=== PATIENT | male | born 1990 | race Caucasian/White ===

== ENCOUNTER 2020-05-31 17:17 | Emergency (ER) | payer OTHER, SELFPAY ==
[2020-05-31 17:33] VITALS: BP 138/73; PULSE 76; RESP 17; TEMP 36; O2SAT 99; BMI 28.1
[2020-05-31 17:57] VITALS: BP 131/72; PULSE 74; RESP 16; TEMP 36.9; O2SAT 99
--- NOTE | 2020-05-31 19:03 | ED_ITS ---
HPI - General Adult General Chief complaint: General Medical Stated complaint: covid symptoms Time Seen by Provider: 05/31/20 19:02 History of Present Illness HPI narrative: Patient complains of vomiting nausea and diarrhea which began this morning he vomited once but stays nauseous but is able to tolerate small sips of fluids, he has had 2 episodes of diarrhea but has had none for the last several hours, he has no abdominal pain no cough no runny nose no shortness of breath no fever Related Data Previous Rx's Medication Instructions Recorded loperamide [Imodium A-D] 2 mg PO Q6H PRN #10 cap 05/31/20 loperamide [Imodium A-D] 2 mg PO Q6H PRN #10 cap 05/31/20 ondansetron HCl [Zofran] 4 mg PO Q6H PRN #10 tab 05/31/20 ondansetron HCl [Zofran] 4 mg PO Q6H PRN #10 tab 05/31/20 ondansetron HCl [Zofran] 4 mg PO Q6H PRN #10 tab 05/31/20 Allergies Allergy/AdvReac Type Severity Reaction Status Date / Time No Known Allergies Allergy Unverified 04/05/20 16:06 Review of Systems Review of Systems: Review of systems is positive for nausea vomiting and diarrhea No fever no chills no abdominal pain no bloody stool no bloody vomit no trouble urinating no cough no runny nose no shortness of breath no difficulty swallowing no sore throat no rash no weakness no dizziness no feeling faint [facility] Past Medical History Attestation statement: The following information was validated with the patient. [facility] Narrative: No relevant medical history, no alcohol no drugs Source: nursing notes reviewed Social History Social History Alcohol intake: never Smoked in Last 30 Days: No Advance Directives: No Advance Directives Information Provided: Yes Physical Exam Vital Signs: Vital Signs: Last Vital Signs Temp 98.4 F 05/31/20 17:57 Pulse 74 05/31/20 17:57 Resp 16 05/31/20 17:57 BP 131/72 05/31/20 17:57 Pulse Ox 99 05/31/20 17:57 Body Mass Index 28.1 General appearance no acute distress comfortable appearing anicteric no pallor, A&O x3 The pharynx is clear, mucous membranes are moist The neck is supple Chest is clear to auscultation bilaterally with no adventitious sounds The heart no murmurs The abdomen soft nontender The extremities no rashes no edema Neuro no focal deficit Course Course Course Narrative: Patient is able to tolerate p.o. fluids, he is given a Zofran for nausea, he ambulates easily and remains comfortable throughout visit and is discharged Discharge Plan Discharge Clinical Impression: Gastroenteritis Patient Disposition: Home, Self-Care Additional Instructions: Drink plenty of fluids Zofran if needed for nausea Imodium if needed for diarrhea Vomiting and diarrhea can be from food poisoning or a virus and COVID can also cause these symptoms We will have COVID test results called in to you in 2-3 days Return any time any worse condition or any concerns Prescriptions: New ondansetron HCl [Zofran] 4 mg tablet 4 mg PO Q6H PRN (Reason: nausea and vomiting) Qty: 10 RF: 0 loperamide [Imodium A-D] 2 mg capsule 2 mg PO Q6H PRN (Reason: loose stool) Qty: 10 RF: 0 ondansetron HCl [Zofran] 4 mg tablet 4 mg PO Q6H PRN (Reason: nausea and vomiting) Qty: 10 RF: 0 ondansetron HCl [Zofran] 4 mg tablet 4 mg PO Q6H PRN (Reason: nausea and vomiting) Qty: 10 RF: 0 loperamide [Imodium A-D] 2 mg capsule 2 mg PO Q6H PRN (Reason: loose stool) Qty: 10 RF: 0 Stand Alone Forms: Work/School Release Interventions: ED Discharge Assessment Last Done: 05/31/20 19:23 Discharge Date/Time: 05/31/20 19:26
== END 2020-05-31 19:26 | disposition home or self-care (01) ==
PROVIDERS: Emergency Provider Emergency Medicine Emergency Medical Services
DX: K52.9 Noninfective gastroenteritis and colitis, unspecified (principal); R11.2 Nausea with vomiting, unspecified; Z20.828 Contact with and (suspected) exposure to other viral communicable diseases; Z79.899 Other long term (current) drug therapy
CPT/HCPCS: 99283; 99284; U0003

== ENCOUNTER 2020-10-10 21:28 | Emergency (ER) | payer OTHER, SELFPAY ==
--- NOTE | ~2020-10-10 | XR_ITS ---
EXAMINATION: XR KNEE, LEFT CLINICAL INFORMATION: Pain after injury COMPARISON: 02/07/2017 TECHNIQUE: Four views of the left knee. FINDINGS: No fracture or dislocation. No suprapatellar joint effusion. Joint spaces are well-maintained. No appreciable degenerative changes. No focal soft tissue swelling of the anterior knee. XR/XR knee LT 3V IMPRESSION: Normal left knee.
[2020-10-10 21:29] VITALS: BP 142/79; PULSE 98; RESP 18; TEMP 36.7; O2SAT 99; BMI 26.6
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
== END 2020-10-10 23:18 | disposition home or self-care (01) ==
PROVIDERS: Emergency Provider Emergency Medicine
DX: S89.92XA Unspecified injury of left lower leg, initial encounter (principal); M23.92 Unspecified internal derangement of left knee; W01.0XXA Fall on same level from slipping, tripping and stumbling without subsequent striking against object, initial encounter; Y93.9 Activity, unspecified; Y92.9 Unspecified place or not applicable; Y99.0 Civilian activity done for income or pay; Z79.899 Other long term (current) drug therapy
CPT/HCPCS: 73562; 99283

== ENCOUNTER → 2020-10-12 08:17 | Outpatient (BNVA) | payer OTHER, SELFPAY | PROVIDERS: Visit Provider Internal Medicine | DX: M23.8X2 Other internal derangements of left knee (principal); Z91.81 History of falling | CPT/HCPCS: 99202 ==

== ENCOUNTER → 2020-10-15 11:29 | Outpatient (BNVA) | payer OTHER, SELFPAY | PROVIDERS: Visit Provider Internal Medicine | DX: M23.8X2 Other internal derangements of left knee (principal); M54.30 Sciatica, unspecified side; Z91.81 History of falling | CPT/HCPCS: 99213 ==

== ENCOUNTER → 2020-10-22 09:50 | Outpatient (BNVA) | payer OTHER, SELFPAY | PROVIDERS: Visit Provider Physician Assistant | DX: S83.92XA Sprain of unspecified site of left knee, initial encounter (principal) | CPT/HCPCS: 99202 ==

== ENCOUNTER 2020-10-24 10:25 | Outpatient (REF) | payer OTHER, SELFPAY ==
--- NOTE | ~2020-10-24 | MR_ITS ---
EXAMINATION: MR KNEE WITHOUT CONTRAST, LEFT CLINICAL INFORMATION: Fall pain locking small effusion. COMPARISON: X-ray of the left knee September 2020 TECHNIQUE: MRI of the knee without contrast was performed using routine sequences on a high-field scanner. FINDINGS: MENISCI: Medial Meniscus: Intact Lateral Meniscus: Intact LIGAMENTS: Cruciate: Intact Collateral: Intact EXTENSOR MECHANISM: Intact ARTICULAR CARTILAGE/BONE: Patellofemoral Compartment: There is some minimal superficial signal abnormality compatible with fissuring along the median ridge of the patella. The trochlear cartilage is normal. Overall minimal patellofemoral arthrosis. Medial Compartment: Normal Lateral Compartment: Normal JOINT FLUID AND BURSAE: Trace joint effusion. MR/MR knee LT wo con IMPRESSION: Minimal patellofemoral arthrosis. Trace effusion.
== END 2020-10-24 10:26 | disposition home or self-care (01) ==
LOC: HO.MRI 10:25
PROVIDERS: Visit Provider Internal Medicine
DX: M25.562 Pain in left knee (principal)
CPT/HCPCS: 73721

== ENCOUNTER → 2020-10-25 07:50 | Outpatient (BNVA) | payer OTHER, SELFPAY | PROVIDERS: Visit Provider Internal Medicine | DX: M23.8X2 Other internal derangements of left knee (principal); M54.9 Dorsalgia, unspecified; K62.89 Other specified diseases of anus and rectum | CPT/HCPCS: 99214 ==

== ENCOUNTER → 2020-10-30 10:39 | Outpatient (BNVA) | payer OTHER, SELFPAY | PROVIDERS: Visit Provider Physician Assistant | DX: S89.92XD Unspecified injury of left lower leg, subsequent encounter (principal) | CPT/HCPCS: 99212 ==

== ENCOUNTER → 2020-11-01 09:05 | Outpatient (BNVA) | payer OTHER, SELFPAY | PROVIDERS: Visit Provider Physician Assistant Medical | DX: S89.92XD Unspecified injury of left lower leg, subsequent encounter (principal); X58.XXXD Exposure to other specified factors, subsequent encounter | CPT/HCPCS: 99213 ==

== ENCOUNTER 2020-11-05 07:17 | Outpatient (REF) | payer OTHER, SELFPAY ==
--- NOTE | ~2020-11-05 | MR_ITS ---
EXAMINATION: MR LUMBAR SPINE WITHOUT CONTRAST CLINICAL INFORMATION: Back pain with right leg sciatic pain. Fall in September 2020. COMPARISON: None TECHNIQUE: MRI of the lumbar spine was obtained using routine sequences without contrast. FINDINGS: VERTEBRAL BODIES AND PARASPINAL STRUCTURES: Normal vertebral body alignment. The lumbar lordosis is maintained. No acute fracture or subluxation. No loss of vertebral body height. Loss of intervertebral disc height with disc desiccation at L4-L5 and L5-S1. Mild Modic type I degenerative endplate changes at L5-S1. No additional abnormal marrow signal. The right kidney is not seen within the right renal fossa. Otherwise, the visualized paraspinal soft tissues are unremarkable. CONUS MEDULLARIS AND CAUDA EQUINA: Normal, terminating at the level of the inferior endplate of L1. SPINAL LEVELS: T12-L1: No significant disc bulge. No central canal or neural foraminal stenosis. L1-L2: No significant disc bulge. Mild bilateral facet arthropathy with a synovial cyst inferior to the left facet joint measuring up to 0.9 cm. No significant central canal or neural foraminal stenosis. L2-L3: No significant disc bulge. Mild bilateral facet arthropathy. No central canal or neural foraminal stenosis. L3-L4: No significant disc bulge. Bilateral facet arthropathy without central canal or neural foraminal stenosis. L4-L5: Shallow broad-based disc bulge with bilateral facet arthropathy causing minimal bilateral neural foraminal stenosis. L5-S1: Shallow broad-based disc bulge with a right subarticular disc protrusion which contacts the exiting right L5 nerve root. Bilateral facet arthropathy with [id number] right and mild left neural foraminal stenosis. MR/MR lumbar spine wo con IMPRESSION: 1. Degenerative disc disease at L5-S1 with a shallow broad-based disc bulge and right subarticular disc protrusion which contacts the exiting right L5 nerve root. Additionally there is bilateral facet arthropathy which causes [id number] right and mild left neural foraminal stenosis. 2. Mild degenerative disc disease at L4-L5 with a shallow broad-based disc bulge and bilateral facet arthropathy causing minimal bilateral neural foraminal stenosis. 3. Bilateral facet arthropathy at L1-L2 with a synovial cyst measuring 0.9 cm inferior to the left L1-L2 facet.
== END 2020-11-05 07:18 | disposition home or self-care (01) ==
LOC: HO.MRI 07:17
PROVIDERS: Visit Provider Internal Medicine
DX: M54.9 Dorsalgia, unspecified (principal); M79.661 Pain in right lower leg; M79.18 Myalgia, other site
CPT/HCPCS: 72148

== ENCOUNTER → 2020-11-12 08:00 | Outpatient (BNVA) | payer OTHER, SELFPAY | PROVIDERS: Visit Provider Internal Medicine | DX: M51.27 Other intervertebral disc displacement, lumbosacral region (principal); M51.36 Other intervertebral disc degeneration, lumbar region; M23.92 Unspecified internal derangement of left knee | CPT/HCPCS: 99214 ==

== ENCOUNTER → 2020-11-20 10:53 | Outpatient (BNVA) | payer OTHER, SELFPAY | PROVIDERS: Visit Provider Physician Assistant | DX: S89.92XD Unspecified injury of left lower leg, subsequent encounter (principal) | CPT/HCPCS: 99212 ==

== ENCOUNTER 2020-12-11 12:00 | Outpatient (RCR) | payer OTHER, SELFPAY ==
--- NOTE | 2020-11-19 11:09 | MHC.PT.EP ---
[facility] [place] Office [place] Office [place] Office [address] [place] [address] [phone] F: [phone] F: [phone] F: [phone] F: [phone] Physical Therapy Plan of Care Date of Evaluation: Date of Surgery: N/A Diagnosis: soft tissue injury of left knee Assessment: pt presents to physical therapy with pain, decreased range of motion, decreased strength, impaired functional mobility, and gait deviations. pt is a good candidate for skilled PT due to age, potential remediation of impairments, typical disease/condition progression and prognosis, comorbidities, and m notivation. pt would benefit from tailored strengthening and stretching exercise program, functional training, gait training, postural re-training, neuromuscular re-education, modalities as needed for pain, equipment safety demonstration. Frequency and Duration: The patient will be seen 2x/wk for 4 wks Short Term Goals: pt will be I w/ HEP to promote self-management of condition. pt will perform full depth squat w/ proper mechanics to reduce knee stress and promote ease in picking up objects from the ground. Project Estimator Goals: pt will tolerate >10 min running on even ground w/ <2/10 L knee pain to promote return to work. pt will report a statistically significant improvement in self-reported outcome measure, LEFI, to promote return to PLOF. Treatment Plan: Modalities to reduce pain, spasms and effusion. Manual therapy to restore motion and function. Therapeutic exercise to improve strength and flexibility. Neuromuscular re-education for posture and balance. Therapeutic activities to return to functional activities of daily living. Electronically signed by: Dalia Montiel PT, DPT Please sign and return to therapist. Thank you for your referral.
--- NOTE | 2020-12-20 10:03 | MHC.PT.DC ---
[facility] [place] Office [place] Office [place] Office [address] [place] [address] [phone] F: [phone] F: [phone] F: [phone] F: [phone] Physical Therapy Discharge Report Diagnosis: soft tissue injury of left knee Date of Surgery: N/A Date of Evaluation: 11/19/20 Date of Discharge: Treatments to Date: 5 Cancellations to Date: 3 No Shows to Date: 3 Discharge Status: Improved Function Independent with HEP Patient Elected to Stop Discharge Summary: Pt had been progressing well with PT and was nearing discharge. He did not attend his last 2 scheduled visits and exact status is unknown. Electronically signed by: Sammi Banda PT, DPT Please sign and return to therapist. Thank you for your referral.
== END 2020-12-20 10:04 | disposition other institution (70) ==
LOC: HO.PT 12:00
PROVIDERS: PCP Family Medicine; Visit Provider Physician Assistant
DX: S89.92XA Unspecified injury of left lower leg, initial encounter (principal)
CPT/HCPCS: 97110; 97161; 97530

== ENCOUNTER 2021-09-04 12:52 | Emergency (ER) | payer OTHER, SELFPAY ==
--- NOTE | ~2021-09-04 | US_ITS ---
EXAMINATION: US SCROTUM CLINICAL INFORMATION: Pain lump. COMPARISON: None TECHNIQUE: A sonogram of the scrotum was performed assessing duque-scale appearance and color Doppler flow. Spectral Doppler analysis of the arterial and venous flow were performed in the testes bilaterally. FINDINGS: RIGHT: Right testicle measures 5.6 x 2.3 x 4.1 cm, volume 27 mL. No focal testicular parenchymal lesions are visualized. Spectral Doppler analysis of the arterial and venous flow is normal in the right testis. Right epididymal head is normal in size. There is a right testicular hydrocele. Right epididymal Doppler flow is normal. LEFT: Left testicle measures 5.3 x 2.6 x 3.2 cm, volume 23 mL. No focal testicular parenchymal lesions are visualized. Spectral Doppler analysis of the arterial and venous flow is normal in the left testis. Left epididymal head is normal in size. Mild hydrocele. Left epididymal Doppler flow is normal. US/US scrotum doppler IMPRESSION: No ultrasound evidence of intratesticular mass. Normal bilateral testicular flow. No evidence of torsion. Mild bilateral hydrocele.
--- NOTE | ~2021-09-04 | US_ITS ---
EXAMINATION: US SCROTUM CLINICAL INFORMATION: Pain lump. COMPARISON: None TECHNIQUE: A sonogram of the scrotum was performed assessing duque-scale appearance and color Doppler flow. Spectral Doppler analysis of the arterial and venous flow were performed in the testes bilaterally. FINDINGS: RIGHT: Right testicle measures 5.6 x 2.3 x 4.1 cm, volume 27 mL. No focal testicular parenchymal lesions are visualized. Spectral Doppler analysis of the arterial and venous flow is normal in the right testis. Right epididymal head is normal in size. There is a right testicular hydrocele. Right epididymal Doppler flow is normal. LEFT: Left testicle measures 5.3 x 2.6 x 3.2 cm, volume 23 mL. No focal testicular parenchymal lesions are visualized. Spectral Doppler analysis of the arterial and venous flow is normal in the left testis. Left epididymal head is normal in size. Mild hydrocele. Left epididymal Doppler flow is normal. US/US scrotum IMPRESSION: No ultrasound evidence of intratesticular mass. Normal bilateral testicular flow. No evidence of torsion. Mild bilateral hydrocele.
[2021-09-04 13:20] VITALS: BP 129/57; PULSE 83; RESP 19; TEMP 36.6; O2SAT 97; BMI 27.3
--- NOTE | 2021-09-04 15:28 | ED.MALEGU ---
HPI - Male Genitourinary General Chief complaint: Urogenital-Male Stated complaint: scrotum pain Time Seen by Provider: 09/04/21 13:24 Source: patient Mode of arrival: ambulatory Limitations: no limitations History of Present Illness HPI Narrative: 31-year-old male presents for right scrotal pain. Pain started 2 days ago. No injury. Pain was worse last night, and patient felt a small bump behind his right testicle. It is painful to touch, no pain at rest. No nausea, vomiting, abdominal pain. No fevers. Patient has had no penile discharge, no penile rashes or ulcers, no dysuria. Patient has no concerns for STDs. Patient's is and he has not had intercourse with her for some time. Patient adamantly states he has no concerns for STDs. MD Complaint: testicle pain Onset (ago): day(s) (2) Duration: constant Location: right testicle Severity: mild Severity scale (1-10): 2 Quality: aching Relieving factors: none Exacerbating factors: none Associated symptoms: Reports denies other symptoms Related Data Sexually active: No Allergies Allergy/AdvReac Type Severity Reaction Status Date / Time No Known Allergies Allergy Verified 10/22/20 10:02 Review of Systems Constitutional: Constitutional: Denies body ache(s), Denies chills, Denies fatigue, Denies fever(s), Denies headache(s), Denies malaise and Denies weakness Eyes: Eyes: Denies diplopia ENT: Denies vertigo, Denies dizziness, Denies otalgia, Denies headache(s), Denies mouth pain, Denies post nasal drip, Denies sinus pain, Denies sinus pressure, Denies sore throat and Denies throat swelling Cardiovascular: Cardiovascular: Denies chest pain, Denies syncope, Denies leg edema, Denies lightheadedness, Denies Loss of Consciousness, Denies palpitations and Denies dyspnea Respiratory: Respiratory: Denies chest congestion, Denies cough and Denies dyspnea Gastrointestinal: Gastrointestinal: Denies abdominal pain, Denies hematochezia, Denies constipation, Denies diarrhea and Denies vomiting Genitourinary: Genitourinary: Denies genital lesions, Denies dysuria, Denies flank pain, Denies penile discharge, Denies scrotal swelling, Reports testicular mass, Reports testicular pain and Denies urinary urgency Musculoskeletal: Musculoskeletal: Reports no additional musculoskeletal complaints Neurologic: Denies confusion, Denies vertigo, Denies dizziness, Denies syncope, Denies headache(s) and Denies weakness Psychiatric: Psychiatric: Denies anxiety, Denies confusion and Denies depression Endocrine: Endocrine: Denies fatigue and Denies palpitations Allergic/Immunologic: Allergic/Immunologic: Denies throat swelling PMFSH Past Medical History Surgical History H/O kidney removal H/O kidney removal Family History Family History Mother No problems noted. Father No problems noted. 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 Physical Exam Vital Signs: Vital Signs: Last Vital Signs Temp 98 F 09/04/21 13:20 Pulse 83 09/04/21 13:20 Resp 19 09/04/21 13:20 BP 129/57 L 09/04/21 13:20 Pulse Ox 97 09/04/21 13:20 BMI result Body Mass Index 27.3 Const: General: No confusion Nutritional Appearance: well nourished Orientation/consciousness: No confusion Limitations: no limitations Eyes: Conjunctivae: conjunctivae normal Pupils: Equal, round and reactive pupils present EOM: EOMs intact bilaterally Neck: Neck: Yes full ROM, Yes no lymphadenopathy and Yes supple Resp: Effort & Inspection: normal respiratory effort and able to speak in complete sentences Auscultation: clear to auscultation bilaterally, no crackles, no rales, no rhonchi and no wheezes Cardio: Rate: regular rate Rhythm: regular rhythm Heart sounds: S1 normal heart sound present and S2 normal heart sound present GI: Inspection: Yes normal to inspection Palpation (GI): Soft to palpation, nontender, no guarding and not rigid Percussion: Yes normal to percussion Auscultation: normal bowel sounds : General: Yes no CVA tenderness Male General Exam: No Genital lesions present Penis: normal penis, circumcised, no ecchymosis, not erythematous, no masses, no papules, no pustules, no vesicles, no paraphimosis, no phimosis, no swelling, no ulcerations and No Genital lesions present Meatus: meatus normal Scrotum: scrotum normal, not edematous, not erythematous and testes descended bilaterally Testes: testicular lie normal, not enlarged, no epididymal induration, no epidiymal tenderness, no testicular swelling and testicular tenderness on the right Back/Spine/Pelvis: Back: no CVA tenderness Skin: General skin exam: no rashes or lesions noted Neuro: General: No confusion Cranial nerves: Yes Equal, round and reactive pupils present Extrem: General: Yes normal to inspection and Yes full ROM Psych: Appearance: grossly normal Affect: normal affect Attitude: cooperative Thought process: Normal thought process present Course Course Course Narrative: 51-year-old male presents with right testicular pain that is tender to touch, no pain at rest. On exam, patient has benign abdomen, is mildly tender posterior right testicle. Reevaluation(s) Reevaluation #1: Ultrasound shows no epididymitis, orchitis, with normal Doppler flow to both testes. Does show mild bilateral hydrocele. Will get UA, will test for CTNG. Patient adamant about no STD exposure. Cancelled CTNG Patient will follow-up with Urology. Counseled alternating Tylenol and ibuprofen. US/US scrotum IMPRESSION: No ultrasound evidence of intratesticular mass. ? Normal bilateral testicular flow. No evidence of torsion. ? Mild bilateral hydrocele. MDM - Male Genitourinary Lab Data Labs: Lab Results 09/04/21 Range/Units 15:28 Urine Color YELLOW Urine Appearance CLEAR Urine pH 6.0 (5.0-8.0) Ur Specific [place] 1.025 (1.005-1.025) Urine Protein NEG (NEG-TRACE) MG/DL Urine Glucose (UA) NEG (NEG) MG/DL Urine Ketones NEG (NEG) MG/DL Urine Blood NEG (NEG) Urine Nitrite NEG (NEG) Ur Leukocyte Esterase NEG (NEG) Discharge Plan Discharge Clinical Impression: Bilateral hydrocele Patient Disposition: Home, Self-Care Instructions: Hydrocele (ED), Testicle Pain (ED) Additional Instructions: Please call Urology at [phone] for further work up of your hydrocele. I have referred you as well, they should be calling you. Your ultrasound did not show any swelling in your epididymis, your testes, there was no mass, you have normal blood flow to both your testicles, no torsion. Please alternate Tylenol and ibuprofen for pain. Take 1 or the other every 4 hours. For example, at midnight take 1000 mg of Tylenol, then at 4:00 a.m. take 800 mg ibuprofen, at 8:00 a.m. take 1000 mg of Tylenol, at noon take 800 mg of ibuprofen, at 4:00 p.m. take 1000 mg of Tylenol, at 8:00 p.m. take 800 mg of ibuprofen. Do not exceed 3000 mg of Tylenol in 24 hours. This method is proven to be as effective as an opioid for pain control. Please return to the emergency room for any new or concerning symptoms. Referrals: Rory Mccabe MD [Physician] - 2 days
[2021-09-04 15:37] LABS: Appearance Urine CLEAR; Color Urine YELLOW; Glucose Urine UA NEG (NEG); Leukocyte Esterase Urine NEG (NEG); Nitrite Urine NEG (NEG); Specific Gravity - Urine 1.025 (1.005-1.025); Urine Blood NEG (NEG); Urine Ketones NEG (NEG); Urine Protein NEG (NEG-TRACE)
== END 2021-09-04 16:15 | disposition home or self-care (01) ==
PROVIDERS: Physician Assistant; Emergency Provider Emergency Medicine; PCP Nurse Practitioner Family
DX: N43.3 Hydrocele, unspecified (principal); N50.811 Right testicular pain
CPT/HCPCS: 76870; 81003; 93975; 99283; 99284

== ENCOUNTER 2022-01-28 15:30 | Emergency (ER) | payer OTHER, SELFPAY ==
--- NOTE | ~2022-01-28 | US_ITS ---
EXAMINATION: Ultrasound right inguinal region. CLINICAL INFORMATION: Right inguinal hernia. COMPARISON: Scrotal ultrasound 09/04/2021 TECHNIQUE: Targeted grayscale and color Doppler exam of the right inguinal region. FINDINGS: There is no inguinal hernia. No fluid collection or mass. There are 2 adjacent morphologically benign-appearing lymph nodes. These have normal fatty hernandez, normal cortex. Short axis diameter is 1.1 cm and 0.8 cm respectively. US/US pelvic limited IMPRESSION: Normal ultrasound right inguinal region. No hernia or mass.
[2022-01-28 16:58] VITALS: BP 141/79; PULSE 88; RESP 18; TEMP 37.4; O2SAT 99; BMI 28.1
[2022-01-28] MEDS: Acetaminophen 325 MG TABLET 650 MG PO (17:05)
--- NOTE | 2022-01-28 20:43 | ED_ITS ---
HPI - General Adult General Chief complaint: Abdominal Pain Stated complaint: ? Hernia [facility] Time Seen by Provider: 01/28/22 17:03 Source: patient Mode of arrival: ambulatory Limitations: no limitations History of Present Illness HPI narrative: Patient complaining of right lower abdominal pain seen at urgent care center sent him here to rule out a hernia. Patient also complaining of body aches malaise for last few days no cough no shortness of breath no fever no nausea no vomiting no testicular pain Related Data Allergies Allergy/AdvReac Type Severity Reaction Status Date / Time No Known Allergies Allergy Verified 01/28/22 16:58 Review of Systems Review of Systems: Yes all other systems are reviewed and are negative [facility] Past Medical History Medical History No pertinent past medical history Surgical History H/O kidney removal H/O kidney removal Family History Family History Mother No problems noted. Father No problems noted. 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 Oriented X3. No acute distress. Eyes: PERRLA, No Nystagmus ENT: Pharynx normal. Oral Mucosa moist Neck: Normal inspection. Neck supple. CVS: Normal heart rate and rhythm. Pulses normal. Respiratory: No respiratory distress. Equal air entry bilateral, no wheezing/rales/rhonchi Abdomen: Soft and nontender. Bowel sounds are present, no mass palpable, no CVA tenderness right inguinal lymph nodes+ less than 1 cm : Testicle nontender epididymitis normal scrotum normal skin normal no hernia or hydrocele noticed Skin: Skin warm and dry. Normal skin color. Normal skin turgor. Extremities: No lower extremity edema. No calf tenderness Neuro: Oriented X 3. No motor deficit. No sensory deficit.No cerebellar signs , cranial nerves II-XII intact Medical Decision Making MDM Narrative Medical decision making narrative: Patient with right inguinal lymph nodes nonsignificant in size ultrasound negative for hernia. Will discharge patient home with symptomatic treatment Lab Data Lab results reviewed: Yes I reviewed the patient's lab results. Labs: Lab Results 01/28/22 Range/Units 20:45 COVID-19 (LIZET) Negative (Negative) COVID-19 Clin Com See Note Discharge Plan Discharge Clinical Impression: Lymphadenopathy, inguinal Patient Disposition: Home, Self-Care Instructions: Lymphadenopathy (ED) Additional Instructions: Your lymph nodes in right inguinal area are not significant large take ibuprofen for pain as needed There is no hernia in ultrasound COVID test is negative Stand Alone Forms: Work/School Release Interventions: ED Discharge Assessment Last Done: 01/28/22 21:21 Discharge Date/Time: 01/28/22 21:21
[2022-01-28 21:04] LABS: COVID-19 Test Negative (Negative)
== END 2022-01-28 21:21 | disposition home or self-care (01) ==
PROVIDERS: Emergency Provider Internal Medicine; PCP Internal Medicine Endocrinology, Diabetes & Metabolism
DX: R59.0 Localized enlarged lymph nodes (principal); Z20.822 Contact with and (suspected) exposure to COVID-19; Z79.899 Other long term (current) drug therapy
CPT/HCPCS: 76857; 87635; 99284

== ENCOUNTER 2022-01-29 04:41 | Emergency (ER) | payer OTHER, SELFPAY ==
--- NOTE | ~2022-01-29 | XR_ITS ---
EXAMINATION: XR CHEST CLINICAL INFORMATION: Chest pain COMPARISON: 01/23/2016 TECHNIQUE: Frontal view of the chest was obtained. FINDINGS: No focal consolidation, pulmonary edema, or pleural effusion. Stable cardiomediastinal silhouette. XR/XR chest 1V IMPRESSION: Unremarkable examination.
[2022-01-29 05:14] VITALS: BP 121/73; PULSE 86; RESP 18; TEMP 37; O2SAT 97; BMI 28.1
[2022-01-29 05:38] LABS: IDNOW Serial# 16C4AD1C; Influenza A Negative (Negative); Influenza B2 Negative (Negative)
[2022-01-29 05:39] LABS: COVID-19 Test Negative (Negative)
--- NOTE | 2022-01-29 07:09 | ECG_ITS ---
Test Reason : chest pain Blood Pressure : / mmHG Vent. Rate : 063 BPM Atrial Rate : 063 BPM P-R Int : 212 ms QRS Dur : 092 ms QT Int : 380 ms P-R-T Axes : 026 084 062 degrees QTc Int : 388 ms Sinus rhythm with marked sinus arrhythmia with 1st degree A-V block Otherwise normal ECG When compared with ECG of 29-JUN-2018 17:55, PA interval has increased Vent. rate has decreased BY 35 BPM Nonspecific T wave abnormality no longer evident in Lateral leads Referred By: Kayla Voss Electronically Signed By:MARJORIE BEDOYA MD
--- NOTE | 2022-01-29 07:17 | ED.URI ---
HPI - URI/Sore Throat General Chief Complaint: General Medical Stated Complaint: cp, flu like symptoms Time Seen by Provider: 01/29/22 07:09 Source: patient Mode of arrival: ambulatory Limitations: no limitations History of Present Illness MD elicited complaint: other (had body aches chills then overnight chest wall pain all night) Onset (ago): day(s) (1) Consistency: constant Severity: moderate Able to tolerate fluids by mouth: Yes Exacerbating factors: other (movement) Relieving factors: nothing Associated symptoms: chills, myalgias, headache and chest pain Treatments prior to arrival: none Related Data Allergies Allergy/AdvReac Type Severity Reaction Status Date / Time No Known Allergies Allergy Verified 01/28/22 16:58 Review of Systems Review of Systems: Constitutional : No Weight loss, No Fever, pos Chills ENT/Mouth : No sore throat, No Rhinorrhea Eyes: No Eye Pain, No Swelling Cardiovascular : pos Chest Pain, no SOB, no Dyspnea on Exertion, No Orthopnea, No Edema, No Palpitations Respiratory : No Cough, No Sputum Gastrointestinal : pos Nausea, No Vomiting, No Diarrhea, No abdominal Pain, No Hematochezia, No Melena Genitourinary : No Dysuria, No Urinary Frequency Musculoskeletal : No joint pain, No Myalgias, No Joint Swelling Skin : No Skin Lesions, No rash Neuro : No Weakness, No Numbness, No Dizziness, No Headache Psych : No Anxiety/Panic, No Depression Heme/Lymph: No Bruising, No Lymphadenopathy Endocrine : No Polyuria, No Polydipsia All other systems reviewed and are negative [facility] Past Medical History Attestation statement: The following information was validated with the patient. Medical History No pertinent past medical history Surgical History H/O kidney removal H/O kidney removal Family History Family History Mother No problems noted. Father No problems noted. 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 Oriented X3. No acute distress. Eyes: Pupils equal, round and reactive to light. ENT: Pharynx normal. Neck: Normal inspection. Neck supple. CVS: Normal heart rate and rhythm. Pulses normal. ttp along lower costochondral border reprodcues pain Respiratory: No respiratory distress. Breath sounds normal. Abdomen: Soft and nontender. Skin: Skin warm and dry. Normal skin color. Normal skin turgor. Extremities: No lower extremity edema. No calf ttp Neuro: Oriented X 3. No motor deficit. No sensory deficit. Course Course Course Narrative: workup negative stable for DC MDM - URI/Sore Throat MDM Narrative Medical decision making narrative: healthy 31 yo male here with c/o chest pain with recent viral illness at this time it does seem MSK - swabs negative but will obtain CXR for mass/infectino and EKG for ischemia. Troponin for myocarditis though low suspicion - he is PERC negative at this time. Lab Data Labs: Lab Results 01/29/22 01/29/22 01/29/22 Range/Units 05:08 05:08 07:25 Troponin I High Sens < 3.5 (<3.5-35.0) ng/L COVID-19 (LIZET) Negative (Negative) COVID-19 Clin Com See Note Influenza Type A (JOSE) Negative (Negative) Influenza Type B (JOSE) Negative (Negative) Influenza A & B Note See Note ECG Data Attestation: I personally reviewed and interpreted this ECG as follows: ECG interpretation date: 01/29/22 ECG interpretation time: :31 Interpretation: Rate: 63 Rhythm: NSR with 1st degree AVB Bradford: mpr,a; Normal P waves. 1st degree AVB Normal QRS complex. ST T wave : normal no JOSH qTC: normal prior studies: no acute ischemia The study has been interpreted contemporaneously by me. . Discharge Plan Discharge Clinical Impression: Acute costochondritis Patient Disposition: Home, Self-Care Instructions: Costochondritis (ED) Additional Instructions: return to ED for any worsening symptoms or concerns COVID, flu, troponin and CXR negative Referrals: Raza Wylie ONLINE MARKETING COORDINATOR [Primary Care Provider] - 2 days (if not better) Stand Alone Forms: Work/School Release
[2022-01-29 07:50] LABS: Troponin-I High Sensitivity < 3.5 ng/L (<3.5-35.0)
== END 2022-01-29 08:22 | disposition home or self-care (01) ==
PROVIDERS: Emergency Provider Emergency Medicine; PCP Nurse Practitioner Family
DX: M94.0 Chondrocostal junction syndrome [Tietze] (principal); Z20.822 Contact with and (suspected) exposure to COVID-19
CPT/HCPCS: 36415; 71045; 84484; 87502; 87635; 93005; 99283; 99284

== ENCOUNTER 2022-04-11 09:31 | Emergency (ER) | payer OTHER, SELFPAY ==
--- NOTE | ~2022-04-11 | XR_ITS ---
EXAMINATION: X-RAY THORACIC SPINE X-RAY LUMBAR SPINE CLINICAL INFORMATION: Trauma. COMPARISON: MR lumbar spine 11/05/2020. TECHNIQUE: 3 views of the thoracic spine and 3 views of the lumbar spine. FINDINGS: No acute fractures or malalignment. Mild disc space narrowing and facet arthropathy in the lower lumbar spine. SI joints are symmetric. The included portions of the cardiomediastinal silhouette and lungs are within normal limits. Nonspecific radiodensities projecting over the right renal shadow measuring up to 8 mm, could represent stones in the right kidney. Nonobstructive bowel gas pattern. XR/XR thoracic spine 3V IMPRESSION: No acute fracture or malalignment. Mild lower lumbar spine degenerative changes. Possibly right-sided renal calculi. If indicated, correlation with a renal ultrasound could be obtained.
--- NOTE | ~2022-04-11 | XR_ITS ---
EXAMINATION: X-RAY THORACIC SPINE X-RAY LUMBAR SPINE CLINICAL INFORMATION: Trauma. COMPARISON: MR lumbar spine 11/05/2020. TECHNIQUE: 3 views of the thoracic spine and 3 views of the lumbar spine. FINDINGS: No acute fractures or malalignment. Mild disc space narrowing and facet arthropathy in the lower lumbar spine. SI joints are symmetric. The included portions of the cardiomediastinal silhouette and lungs are within normal limits. Nonspecific radiodensities projecting over the right renal shadow measuring up to 8 mm, could represent stones in the right kidney. Nonobstructive bowel gas pattern. XR/XR lumbar spine 2-3V IMPRESSION: No acute fracture or malalignment. Mild lower lumbar spine degenerative changes. Possibly right-sided renal calculi. If indicated, correlation with a renal ultrasound could be obtained.
--- NOTE | ~2022-04-11 | XR_ITS ---
EXAMINATION: XR KNEE, RIGHT CLINICAL INFORMATION: Pain. Fall. COMPARISON: Radiograph of the right knee on 07/22/2018. TECHNIQUE: Four views of the right knee. FINDINGS: No acute fracture or malalignment. No significant degenerative changes. A small joint effusion. No unexpected radiopaque foreign bodies. XR/XR knee RT 4V IMPRESSION: Small joint effusion. No acute fractures or malalignment.
--- NOTE | ~2022-04-11 | CT_ITS ---
EXAMINATION: CT HEAD WITHOUT CONTRAST CT CERVICAL SPINE WITHOUT CONTRAST CLINICAL INFORMATION: Fall. COMPARISON: None. TECHNIQUE: Contiguous axial imaging was performed from the skull base to vertex without intravenous administration of contrast. Contiguous axial imaging was performed from the upper chest through the skull base without intravenous administration of contrast. Coronal and sagittal reformats were obtained at the acquisition workstation. This CT examination was performed using dose optimization techniques as appropriate, variously including the following: *Automated exposure control *Adjustment of mA and/or kV according to patient size (this includes techniques or standardized protocols for targeted exams where dose is matched to indication/reason for exam; i.e. extremities or head) *Use of iterative reconstruction technique DLP: 799 and 542 mGy-cm FINDINGS: Head: Examination is limited due to motion. Specifically, evaluation of the peripheral brain and extra-axial spaces is limited. There is no evidence of acute intracranial hemorrhage or edematous territorial infarction. The ventricles are normal in size and configuration. No evidence for obstructive hydrocephalus. No abnormal mass effect or midline shift. No extra-axial fluid collections. No acute soft tissue or osseous abnormalities. The mastoid air cells and paranasal sinuses are clear. Cervical Spine: The atlantooccipital and atlantoaxial articulations remain well aligned. Straightening of the normal cervical lordosis. Otherwise, there is anatomic alignment of the vertebral bodies and posterior elements. No evidence of acute fracture or subluxation. The vertebral body heights and disc spaces are maintained. There is no prevertebral soft tissue swelling. The thyroid gland and remaining cervical soft tissues are normal in appearance. The lung apices demonstrate no abnormalities. CT/CT cervical spine wo IV con IMPRESSION: Evaluation of the brain is limited due to motion. Small extra-axial collections and peripherally located blood products might be occult. If clinically deemed appropriate, a repeat examination is recommended. No large intraparenchymal hemorrhage or edematous territorial infarction. No substantial midline shift. No acute cervical spine fracture or malalignment.
[2022-04-11 10:10] VITALS: BP 144/97; PULSE 90; RESP 20; TEMP 36.6; O2SAT 97; BMI 27.3
--- NOTE | 2022-04-11 11:51 | ED_ITS ---
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 He reports that they were trying to arrest an individual although the individual tried to escape and started running therefore this patient tried to grab him although they both fell down the stairs. He reports he fell down 1 flight of stairs. He did hit his head although did not lose consciousness. There was no prolonged down time. He is not on any blood thinners. He does report he does have some dizziness and a headache. He denies any paresthesias, chest injury, shortness of breath, abdominal injury/pain, any other extremity injury or pain, any paresthesias or a ny other symptoms complaints concerns or injuries at this time. 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) Fall from: down stairs (#) (One flight of stairs) Fall witnessed: yes, by bystander (Co-workers) Place fall occurred: work Loss of consciousness: none Prolonged down time: no Symptoms prior to fall: none Context: tripped/slipped Location of injury: head, neck and back Location of injury - extremities: right: knee Severity: mild Quality: aching Associated symptoms (after fall): headache (/dizziness), neck pain and other (Back pain and right knee pain) Related Data Previous Rx's Medication Instructions Recorded acetaminophen 500 mg tablet 1,000 mg PO QID PRN fever or pain 04/11/22 (Tylenol Extra Strength) #14 tabs cyclobenzaprine 10 mg tablet 10 mg PO Q8H #14 tabs 04/11/22 oxycodone 5 mg tablet 5 mg PO Q6H PRN pain #14 tabs 04/11/22 Allergies Allergy/AdvReac Type Severity Reaction Status Date / Time No Known Allergies Allergy Verified 01/28/22 16:58 Review of Systems Review of Systems: Constitutional : No Fever, No Chills ENT/Mouth : No Ear Pain, No Hoarseness, No sore throat Eyes: No Eye Pain, No Swelling, No Redness, No Foreign Body Cardiovascular : No Chest Pain, No SOB Respiratory : No Cough, No Dyspnea Gastrointestinal : No Nausea, No Vomiting, No Diarrhea, No abdominal Pain Genitourinary : No Dysuria, No Hematuria Musculoskeletal : + right knee joint pain, + neck/upper and lower back injury/pain, No Myalgias, No Joint Swelling Skin : No Skin lacerations, No rash Neuro : + headache/dizziness, No Weakness, No Numbness, No Paresthesias, No Loss of Consciousness Psych : No Anxiety/Panic, No Depression Heme/Lymph: no easy bruising, no Lymphadenopathy Endocrine : No Polyuria, No Polydipsia Yes all other systems are reviewed and are negative [facility] Past Medical History Attestation statement: The following information was validated with the patient. Source: old records reviewed and nursing notes reviewed Medical History No pertinent past medical history Surgical History H/O kidney removal H/O kidney removal Family History Family History Mother No problems noted. Father No problems noted. 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 Blood pressure 144/97. Heart rate normal. Respiration rate normal. Temperature normal. Oxygen saturation normal. Appearance: Alert. Oriented X3. No acute distress. Head: Normal external exam. Normocephalic. Atraumatic. No Chau signs noted. N o raccoon eyes noted Eyes: PERRLA. EOMI. Conjunctiva and sclera normal. Eyelids normal. ENT: EAC normal. TM's Normal. No septal hematoma noted. No hemotympanum noted. Pharynx normal. Uvula midline. Moist mucous membranes. No lesions/ulcerations or masses noted on the tongue. Normal voice. No trismus noted. No drooling noted. No muffled voice noted. Neck: Normal inspection. Neck supple. FROM. No adenopathy. Thyroid Normal. No tracheal deviation noted. No crepitus is noted. No meningeal signs. No neck mass noted. No signs of trauma noted. Patient tenderness palpation to bilateral paracervical musculature and mid cervical tenderness. Although no step-offs or deformities are noted. Patient neuro intact bilaterally and distally on all 4 extremities. Reflexes intact bilaterally and distally on all 4 extremities. CVS: Normal heart rate and rhythm. Heart sound normal. Pulses normal throughout. No murmurs/rales/gallops. Respiratory: No respiratory distress. Painless inspiration. Breath sounds normal. No wheezes/rales/rhonchi noted. Chest nontender. No crepitus is noted. No accessory muscle usage noted or decreased air movement noted. No signs of trauma. Abdomen: Soft and nontender. Nondistended. No guarding. No rigidity. Bowel sounds normal in all 4 quadrants. No distention noted. No organomegaly noted. No visible injury noted. Back: No CVA tenderness. Full range of motion noted. No obvious deformities, or edema. Mild para-spinal muscular tenderness from thoracic to lumbar region to coccyx. Full ROM in back and lower extremities. 5/5 strength hip extension/f lexion, abduction, adduction. Mild Lumbar pain with hip flexion against resistance. Straight leg raise test negative on right; Straight leg raise test negative on left; Reflexes normal ankle and knee bilaterally; EHL motor strength normal bilaterally. No rashes/lesion/induration/fluctuance or signs infection noted. No signs of trauma noted. Skin: Skin warm and dry. Normal skin color. Normal skin turgor. No rashes/lesions/lacerations noted. Extremities: Patient with tenderness palpation to the right knee at the patellar aspect with mild soft tissue swelling. No obvious ligamentous or tend on injury noted to the right knee or obvious deformities noted. Otherwise all other extremities exhibit normal range of motion nontender. Neuro: Oriented X 3. No motor deficit. No sensory deficit. Reflexes normal. Normal steady gait. No focal neuro deficits noted. CN's II-XII intact bilaterally? Vascular: + radial pulses/+ 2 distal pedal pulses/+2 dorsalis pedis b/l. Normal cap refill. No cyanosis noted to upper extremity nails and lower extremity toes nails. 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 He reports that they were trying to arrest an individual although the individual tried to escape and started running therefore this patient tried to grab him although they both fell down the stairs. He reports he fell down 1 flight of stairs. He did hit his head although did not lose consciousness. There was no prolonged down time. He is not on any blood thinners. He does report he does have some dizziness and a headache. Plan: Will provide 5 mg of oxycodone, 10 mg of Flexeril. Provide a u.s. representative dome patch. Obtain a CT scan of brain/cervical spine, x-ray of thoracic/lumbar spine and right knee and re-evaluate. Reevaluation(s) Reevaluation #1: - right knee x-ray reveals small joint effusion otherwise no acute fractures or misalignment. - x-ray of of thoracic and lumbar spine revealed chronic changes no acute processes noted patient reports he does not have a right kidney. - CT scan of cervical spine negative for any acute processes. - CT scan of brain reported that it was a limited evaluation of the brain due to motion. Small extra-axial collections and peripheral located blood products might be occult. They reported if necessary repeat CT scan although they do not reveal any large ?intraparenchymal hemorrhage or edematous territorial infarction. No substantial midline shift.No acute cervical spine fracture or malalignment. - therefore I discussed this case with Dr. Sheth and he is agreeable we do not need to rescanned the patient at this time. As patient's neuro exam is within normal limits. Will DC home with symptomatic treatment instructions to follow- up with work connection before returning on full duty. Tony wrap was placed to his right knee. Instructions to follow-up with PCP as needed and to return if any new or worsening symptoms. Patient understands agrees with this plan. Time: 14:32 Procedures Orthopedic Splinting/Casting Injury #1: Side: right Lower Extremity Injury Location: knee Lower Extremity Immobilizer: Tony wrap MDM - Fall Medical Records Attestation: I reviewed the patient's medical records. Imaging Data Thoracic/lumbar x-ray: Attestation: I personally reviewed and interpreted this imaging study as follows: Radiologist's impression: FINDINGS: No acute fractures or malalignment. Mild disc space narrowing and facet arthropathy in the lower lumbar spine. SI joints are symmetric. The included portions of the cardiomediastinal silhouette and lungs are within normal limits. Nonspecific radiodensities projecting over the right renal shadow measuring up to 8 mm, could represent stones in the right kidney. Nonobstructive bowel gas pattern.? XR/XR thoracic spine 3V IMPRESSION: No acute fracture or malalignment. Mild lower lumbar spine degenerative changes. ? Possibly right-sided renal calculi. If indicated, correlation with a renal ultrasound could be obtained.? Right knee x-ray: Attestation: I personally reviewed and interpreted this imaging study as follows: Radiologist's impression: FINDINGS: No acute fracture or malalignment. No significant degenerative changes. A small joint effusion. No unexpected radiopaque foreign bodies.? XR/XR knee RT 4V IMPRESSION: Small joint effusion. No acute fractures or malalignment. CT scan of brain/cervical spine without contrast: Attestation: I personally reviewed and interpreted this imaging study as follows: Radiologist's impression: FINDINGS: Head: Examination is limited due to motion. Specifically, evaluation of the peripheral brain and extra-axial spaces is limited. There is no evidence of acute intracranial hemorrhage or edematous territorial infarction. The ventricles are normal in size and configuration. No evidence for obstructive hydrocephalus. No abnormal mass effect or midline shift. No extra-axial fluid collections. No acute soft tissue or osseous abnormalities. The mastoid air cells and paranasal sinuses are clear. Cervical Spine: The atlantooccipital and atlantoaxial articulations remain well aligned. Straightening of the normal cervical lordosis. Otherwise, there is anatomic alignment of the vertebral bodies and posterior elements. No evidence of acute fracture or subluxation. The vertebral body heights and disc spaces are maintained. There is no prevertebral soft tissue swelling. The thyroid gland and remaining cervical soft tissues are normal in appearance. The lung apices demonstrate no abnormalities. CT/CT head/brain wo IV con IMPRESSION: Evaluation of the brain is limited due to motion. Small extra-axial collections and peripherally located blood products might be occult. If clinically deemed appropriate, a repeat examination is recommended. No large intraparenchymal hemorrhage or edematous territorial infarction. No substantial midline shift. ? No acute cervical spine fracture or malalignment. Discharge Plan Discharge Clinical Impression: Encounter for assessment of work-related causation of injury, Fall down stairs, Head injury, Acute cervical sprain, Sprain of thoracic spine, Lumbar back sprain, Right knee sprain, Effusion of knee joint right, Concussion, Hematoma of scalp Patient Disposition: Home, Self-Care Instructions: Concussion (ED), Head Injury (ED), Swollen Knee Joint (ED), Return to Work Instructions (ED), Hematoma (ED) Additional Instructions: You need to follow-up with Work connection before returning on Full Duty. Prescriptions: New acetaminophen [Tylenol Extra Strength] 500 mg tablet 1,000 mg PO QID PRN (Reason: fever or pain) Qty: 14 0RF cyclobenzaprine 10 mg tablet 10 mg PO Q8H Qty: 14 0RF oxycodone 5 mg tablet 5 mg PO Q6H PRN (Reason: pain) Qty: 14 0RF Rx Instructions: Partial Fill upon patient request. Referrals: [facility] [Provider Group] - 3 days Raza Wylie NP [Primary Care Provider] - 2 days Stand Alone Forms: Work/School Release Interventions: ED Discharge Assessment Last Done: 04/11/22 14:41 Discharge Date/Time: 04/11/22 14:45
[2022-04-11 12:21] VITALS: BP 150/66; PULSE 70; RESP 18; TEMP 36.9; O2SAT 100
[2022-04-11] MEDS: Cyclobenzaprine HCl 10 MG TABLET PO (12:43)
[2022-04-11] MEDS: oxyCODONE HCl Immed Release 5 MG TABLET PO (12:43)
[2022-04-11] MEDS: Lidocaine 4 % Patch ADH..PATCH 1 PATCH TRANSDERMA (12:44)
[2022-04-11 14:32] VITALS: BP 132/72; PULSE 71; RESP 16; O2SAT 99
--- NOTE | 2022-04-11 14:43 | PC.NURSE ---
patient a/ox4. went over discharge instructions as ordered by provider . patient to return to Ed if symptoms worsen . plan to follow up with primary care and work connection . no question at this time .
== END 2022-04-11 14:45 | disposition home or self-care (01) ==
PROVIDERS: Emergency Provider Emergency Medicine; PCP Nurse Practitioner Family
DX: S06.0X0A Concussion without loss of consciousness, initial encounter (principal); S00.03XA Contusion of scalp, initial encounter; S13.4XXA Sprain of ligaments of cervical spine, initial encounter; S23.3XXA Sprain of ligaments of thoracic spine, initial encounter; S33.5XXA Sprain of ligaments of lumbar spine, initial encounter; S83.91XA Sprain of unspecified site of right knee, initial encounter; Y35.891A Legal intervention involving other specified means, law enforcement official injured, initial encounter; M25.461 Effusion, right knee; Y93.89 Activity, other specified; Y92.9 Unspecified place or not applicable; Y99.0 Civilian activity done for income or pay
CPT/HCPCS: 70450; 72072; 72100; 72125; 73564; 99284

== ENCOUNTER → 2022-04-14 08:26 | Outpatient (BNVA) | payer OTHER, SELFPAY | PROVIDERS: PCP Nurse Practitioner Family; Visit Provider Internal Medicine | DX: S06.0X0A Concussion without loss of consciousness, initial encounter (principal); W10.9XXA Fall (on) (from) unspecified stairs and steps, initial encounter; M54.50 Low back pain, unspecified; M76.62 Achilles tendinitis, left leg | CPT/HCPCS: 99203 ==

== ENCOUNTER → 2022-04-18 08:40 | Outpatient (BNVA) | payer OTHER, SELFPAY | PROVIDERS: PCP Nurse Practitioner Family; Visit Provider Internal Medicine | DX: R07.9 Chest pain, unspecified (principal) | CPT/HCPCS: 99214 ==

== ENCOUNTER 2022-04-18 09:34 | Emergency (ER) | payer OTHER, SELFPAY ==
--- NOTE | ~2022-04-18 | US_ITS ---
EXAMINATION: ULTRASOUND EXTREMITY NONVASCULAR LIMITED CLINICAL INFORMATION: Left lower leg pain, concern for Achilles injury COMPARISON: None TECHNIQUE: Sonographic evaluation of the left Achilles tendon was performed. Limited scanning of the right Achilles tendon was also performed for purposes of comparison. FINDINGS: The left Achilles tendon appears intact though thickened compared to the right. For example, the left Achilles tendon measures approximately 1.0 cm in thickness, while the right measures 0.6 cm in thickness. US/US extremity nonvascular frederick IMPRESSION: Left Achilles tendon appears intact though thickened, raising suspicion for Achilles tendinopathy.
[2022-04-18 09:37] VITALS: BP 123/76; PULSE 72; RESP 16; TEMP 36.7; O2SAT 100; BMI 27.3
--- NOTE | 2022-04-18 09:39 | ED.GENADULT ---
HPI - General Adult General Chief complaint: General Medical Stated complaint: Sent from /SOB Time Seen by Provider: 04/18/22 09:39 Source: patient Mode of arrival: ambulatory Limitations: no limitations History of Present Illness HPI narrative: Patient is a 32 year old male presenting to the emergency department today with chest wall pain and left lower leg pain. Patient states that a little while ago he sustained a work injury and today he was having follow up for it at [facility]. Patient states that while there, he had some chest wall pain and is still having left lower leg pain. Patient denies any dizziness, lightheadedness, abdominal pain, nausea, vomiting, fever, chills, blurry vision, double vision, loss of vision, difficulty breathing, shortness of breath, back pain, night sweats, pain with urination, increased urinary frequency, increased urinary urgency, blood in his urine or stool, syncope or a near syncopal episode, recent trauma or falls, bowel incontinence, bladder incontinence, bowel retention, bladder retention, or any other complaints at this time. Onset (ago): day(s) Severity: mild Severity scale (1-10): 2 Quality: aching and constant Pain Consistency: constant Relieving factors: none Exacerbating factors: none Associated symptoms: chest pain (chest wall pain) Treatments prior to arrival: none Related Data Previous Rx's Medication Instructions Recorded acetaminophen 500 mg tablet 1,000 mg PO QID PRN fever or pain 04/11/22 (Tylenol Extra Strength) #14 tabs cyclobenzaprine 10 mg tablet 10 mg PO Q8H #14 tabs 04/11/22 oxycodone 5 mg tablet 5 mg PO Q6H PRN pain #14 tabs 04/11/22 Allergies Allergy/AdvReac Type Severity Reaction Status Date / Time No Known Allergies Allergy Verified 01/28/22 16:58 Review of Systems Constitutional: Constitutional: Reports no additional constitutional complaints, Denies chills, Denies fever(s) and Denies night sweats Eyes: Eyes: Reports no additional eye complaints, Denies blurry vision, Denies change in vision, Denies diplopia, Denies eye discharge, Denies loss of vision and Denies eye pain ENT: Denies dizziness Cardiovascular: Cardiovascular: Reports no additional cardiovascular complaints, Denies lightheadedness, Denies Loss of Consciousness and Denies dyspnea Respiratory: Respiratory: Reports no additional respiratory complaints and Denies dyspnea Gastrointestinal: Gastrointestinal: Reports no additional gastrointestinal complaints, Denies abdominal pain, Denies melena, Denies hematochezia, Denies change in bowel habits and Denies change in stool character Genitourinary: Genitourinary: Reports no additional male genitourinary complaints, Denies hematuria, Denies oliguria, Denies difficulty urinating, Denies dysuria, Denies urinary frequency, Denies urinary hesitancy, Denies urinary incontinence and Denies urinary urgency Musculoskeletal: Musculoskeletal: Reports no additional musculoskeletal complaints, Denies numbness and Denies tingling Comments: chest wall pain, left lower leg pain Neurologic: Denies dizziness, Denies loss of vision, Denies numbness and Denies tingling Psychiatric: Psychiatric: Reports no additional psychiatric complaints Endocrine: Endocrine: Reports no additional endocrine complaints Hematologic/Lymphatic: Hematologic/Lymphatic: Reports no additional hematologic/lymphatic complaints Allergic/Immunologic: Allergic/Immunologic: Reports no additional allergic/immunologic complaints PMFSH Past Medical History Attestation statement: The following information was validated with the patient. Source: old records reviewed Medical History No pertinent past medical history Surgical History H/O kidney removal H/O kidney removal Family History Family History Mother No problems noted. Father No problems noted. 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 Physical Exam ED Vital Signs: Vital Signs - 24 hr 04/18/22 09:37 04/18/22 12:30 Temperature 98.0 F Pulse Rate 72 83 Respiratory Rate 16 14 Blood Pressure 123/76 125/64 Pulse Oximetry 100 98 Oxygen Delivery Method Room Air Room Air BMI result Body Mass Index 27.3 Const General: cooperative, no acute distress, alert and awake Nutritional Appearance: well nourished Orientation/consciousness: patient oriented x3 Limitations: no limitations HENMT Head: Yes normal to inspection and Yes atraumatic Ears: hearing grossly normal bilaterally and external ears normal General nose exam: Normal external nose present, no nasal discharge noted and no epistaxis Face and sinus: Yes normal facial exam, No abrasion and No laceration Mouth: Normal oral and palatal mucosa present, no drooling and no muffled voice Eyes General: appearance normal, both eyes and all related structures Periorbital: periorbital findings normal Eyelids: Yes eyelids normal Conjunctivae: conjunctivae normal Pupils: Equal, round and reactive pupils present EOM: EOMs intact bilaterally Neck Neck: Yes normal visual inspection, Yes full ROM and Yes no lymphadenopathy Chest Chest palpation & inspection: normal inspection of the chest Resp Effort & Inspection: normal respiratory effort and able to speak in complete sentences Auscultation: clear to auscultation bilaterally Cardio Rate: regular rate Rhythm: regular rhythm GI Inspection: Yes normal to inspection Neuro General: patient oriented x3 and moves all extremities Cranial nerves: Yes Equal, round and reactive pupils present Cognition (Neuro): normal cognition Motor exam (neuro): 5/5 motor strength present throughout Sensory Exam: Normal double simultaneous stimulation for sensation Coordination: [id number] test normal Extrem General: Yes normal to inspection, Yes full ROM and Yes capillary refill normal Psych Appearance: grossly normal Mental Status: mental status grossly normal Affect: normal affect Attitude: cooperative Thought process: Normal thought process present Thought content: Normal thought content present Insight: Good insight present (Psych) Medical Decision Making MDM Narrative Medical decision making narrative: Patient is a 32 year old male presenting to the emergency department today with left lower leg pain and chest wall pain. Patient's physical exam was unremarkable. Patient's blood work was unremarkable including a negative d dimer. Patient's EKG was unremarkable. Patient's left lower leg US showed an achilles tendonitis. I explained my physical exam findings as well as all test results to the patient. I answered all questions asked by the patient. I stressed the importance of the patient taking his medication as prescribed. I stressed the importance of the patient following up with his primary care provider and an orthopedist. I stressed the importance of the patient returning to the emergency department immediately if his symptoms were to worsen or if he were to develop any dizziness, shortness of breath, difficulty breathing, chest pain, blurry vision, loss of vision, nausea, vomiting, abdominal pain, fever, chills, back pain, or any other complaints. Patient verbalized agreement and understanding with this treatment plan and discharge. Medical Records Medical records reviewed: Yes I reviewed the patient's medical records. Lab Data Lab results reviewed: Yes I reviewed the patient's lab results. Result diagrams: 04/18/22 10:13 04/18/22 10:13 Labs: Lab Results 04/18/22 04/18/22 04/18/22 Range/Units 10:13 10:13 10:13 WBC 3.6 L (4.8-10.8) X10*3/uL RBC 5.38 (4.60-5.80) X10*6/uL Hgb 16.4 (14.0-18.0) g/dl Hct 46.4 (42.0-52.0) % MCV 86.2 (80.0-98.0) fL MCH 30.5 (27.0-33.0) pg MCHC 35.3 (31.0-36.0) g/dl RDW 11.9 (11.0-16.0) % Plt Count 193 (160-400) X10*3/uL MPV 9.9 (9.4-12.4) fL Immature Gran % (Auto) 0.3 (0.0-0.4) % Neut % (Auto) 56.3 (45-73) % Lymph % (Auto) 31.8 (20-40) % [place] % (Auto) 10.2 (2-11) % Eos % (Auto) 0.8 (0-4) % Baso % (Auto) 0.6 (0-2) % Lymph # (Auto) 1.2 (1.2-4.9) X10*3/uL [place] # (Auto) 0.4 (0.1-1.2) X10*3/uL Eos # (Auto) 0.0 (0.0-0.4) X10*3/uL Baso # (Auto) 0.0 (0.0-0.2) X10*3/uL Abs Immat Gran (auto) 0.01 (0.00-0.03) X10*3/uL Absolute Neuts (auto) 2.0 (2.0-8.3) x10*3/uL Absolute Nucleated RBC 0.000 (0.0-0.012) X10*3/uL Nucleated RBC % (auto) 0.0 (0.0-0.2) /100WBC D-Dimer High Sensitivty < 150 NG/ML Sodium 138 (135-145) mmol/L Potassium 4.6 (3.3-5.1) mmol/L Chloride 102 (96-108) mmol/L Carbon Dioxide 25 (22-29) mmol/L Anion Gap 16 (12-20) BUN 12 (9-16) mg/dL Creatinine 1.12 (0.5-1.4) mg/dL Estim Creat Clear Calc 91.6 Estimated GFR > 60 Random Glucose 99 (60-115) mg/dL Calcium 9.7 (8.4-10.2) mg/dL Total Bilirubin 0.8 (0.0-1.0) mg/dL AST 20 (5-37) U/L ALT 21 (0-40) U/L Alkaline Phosphatase 64 (39-117) U/L Troponin I High Sens (<3.5-35.0) ng/L Total Protein 7.2 (6.5-8.0) g/dL Albumin 4.6 (3.5-5.0) g/dL 04/18/22 Range/Units 10:13 WBC (4.8-10.8) X10*3/uL RBC (4.60-5.80) X10*6/uL Hgb (14.0-18.0) g/dl Hct (42.0-52.0) % MCV (80.0-98.0) fL MCH (27.0-33.0) pg MCHC (31.0-36.0) g/dl RDW (11.0-16.0) % Plt Count (160-400) X10*3/uL MPV (9.4-12.4) fL Immature Gran % (Auto) (0.0-0.4) % Neut % (Auto) (45-73) % Lymph % (Auto) (20-40) % [place] % (Auto) (2-11) % Eos % (Auto) (0-4) % Baso % (Auto) (0-2) % Lymph # (Auto) (1.2-4.9) X10*3/uL [place] # (Auto) (0.1-1.2) X10*3/uL Eos # (Auto) (0.0-0.4) X10*3/uL Baso # (Auto) (0.0-0.2) X10*3/uL Abs Immat Gran (auto) (0.00-0.03) X10*3/uL Absolute Neuts (auto) (2.0-8.3) x10*3/uL Absolute Nucleated RBC (0.0-0.012) X10*3/uL Nucleated RBC % (auto) (0.0-0.2) /100WBC D-Dimer High Sensitivty NG/ML Sodium (135-145) mmol/L Potassium (3.3-5.1) mmol/L Chloride (96-108) mmol/L Carbon Dioxide (22-29) mmol/L Anion Gap (12-20) BUN (9-16) mg/dL Creatinine (0.5-1.4) mg/dL Estim Creat Clear Calc Estimated GFR Random Glucose (60-115) mg/dL Calcium (8.4-10.2) mg/dL Total Bilirubin (0.0-1.0) mg/dL AST (5-37) U/L ALT (0-40) U/L Alkaline Phosphatase (39-117) U/L Troponin I High Sens < 3.5 (<3.5-35.0) ng/L Total Protein (6.5-8.0) g/dL Albumin (3.5-5.0) g/dL Imaging Data US left lower extremity : Attestation: I personally reviewed and interpreted this imaging study as follows: My impression: Achilles tendonitis. Radiologist's impression: EXAMINATION: ULTRASOUND EXTREMITY NONVASCULAR LIMITED CLINICAL INFORMATION: Left lower leg pain, concern for Achilles injury? COMPARISON: None? TECHNIQUE: Sonographic evaluation of the left Achilles tendon was performed. Limited scanning of the right Achilles tendon was also performed for purposes of comparison.? FINDINGS: The left Achilles tendon appears intact though thickened compared to the right. For example, the left Achilles tendon measures approximately 1.0 cm in thickness, while the right measures 0.6 cm in thickness. US/US extremity nonvascular frederick IMPRESSION: Left Achilles tendon appears intact though thickened, raising suspicion for Achilles tendinopathy. Dictated By: Vincent Fowler MD Signed By: Electronically signed by Vincent Fowler MD 04/18/22 8021 Discharge Plan Discharge Clinical Impression: Achilles tendon pain Patient Disposition: Home, Self-Care Instructions: Achilles Tendinitis (ED) Additional Instructions: Follow up with your primary care provider and an orthopedic provider. Return to the emergency department immediately if your symptoms worsen or if you develop any dizziness, shortness of breath, difficulty breathing, chest pain, blurry vision, loss of vision, nausea, vomiting, abdominal pain, fever, chills, back pain, or any other complaints. Prescriptions: No Action acetaminophen [Tylenol Extra Strength] 500 mg tablet 1,000 mg PO QID PRN (Reason: fever or pain) Qty: 14 0RF cyclobenzaprine 10 mg tablet 10 mg PO Q8H Qty: 14 0RF oxycodone 5 mg tablet 5 mg PO Q6H PRN (Reason: pain) Qty: 14 0RF Rx Instructions: Partial Fill upon patient request. Referrals: [facility] [place] [facility] [Provider Group] (Call to establish and follow up with an orthopedic provider. 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
--- OUTSIDE RECORDS SUMMARY | 2022-04-18 09:52 | XMS_ITS ---
:1990 Author Organization Department of [facility] Aff rs Address [address] [place] [address] Support Name Relationship Address Phone TETE TRAN Unavailable [address] [phone] [address] [place] [address] THOMAS MONTOYA Unavailable [address] [facility] [place] [address] Insurance Providers: All historical and current Section Date Range: From patient's date of to the date document was created.This section includes the names of all active insurance providers for the patient. Insurance Type of Plan Start of End of Group Member Insurance Policy P atient's Provider Coverage Name Policy Policy Number ID Provider's Ojeda's Relationship Coverage Coverage Telephone Name to Policy Number Ojeda [facility] Aug 03, [id number] [id number] ROSINA CALLAHAN PATIENT BEE GIMENEZ [id number] [facility] Selected Encounter This section includes the information on record at [place] for the Encounter. Date/Time Encounter Type Encounter Reason Provider Source Description May 31, 2021 ADM [id number] PRIMARY ICD-10-CM Z23 MARLENY CASTILLO 02:00 PM 100MCG/0.5ML2ND CARE/MEDICINE Encounter for MARY immunization with Provider Comments: Encounter for Immunization IHE Encounter Template Text not used by [place] Assessments - Encounter Diagnoses This section includes the primary and secondary diagnoses documented for the Encounter. Date/Time Primary/Secondary Diagnosis Name Provider Source Diagnosis May 31, 2021 PRIMARY Encounter for MARLENY CASTILLO [facility] N 01:44 PM immunization MARY [place] [facility] Plan of Treatment: Future Appointments (+ 6 months) and Future Tests (+/- 45 days) The Plan of Treatment section includes future care activities for the patient from all [place] treatmentfacilities. This section includes future appointments and future orders which are active, pending orscheduled.Future Appointments This section includes appointments that were scheduled to occur 6 months from the date of the Encounter, up to a maximum of 20 appointments. The data comes from all [place] treatment facilities. Appointment Date/Time Appointment Type Appointment Facili ty Name Jun 04, 2021 04:00 PM AM[facility]ULATORY [facility] [place] [facility] Jun 18, 2021 04:00 PM AM[facility] [place] [facility] Jul 02, 2021 04:00 PM [facility] [place] [facility] Jul 03, 2021 12:00 PM [facility] [place] [facility] Jul 04, 2021 02:30 PM [facility] [place] [facility] Jul 11, 2021 01:00 PM [facility] [place] [facility] Jul 16, 2021 04:00 PM AM[facility] [place] [facility] Jul 18, 2021 01:30 PM AM[facility] [place] [facility] Jul 25, 2021 02:30 PM AM[facility] [place] [facility] Jul 26, 2021 09:00 AM [facility] [place] [facility] Jul 30, 2021 11:30 AM AM[facility] [place] [facility] Aug 07, 2021 11:00 AM [facility]IC[facility] [place] [facility] Aug 13, 2021 07:30 AM AMBULATORY - NONE [facility] [place] [facility] Aug 19, 2021 02:00 PM AM[facility]UL[facility] [place] [facility] Aug 28, 2021 10:20 AM [facility]IC[facility] [place] [facility] Aug 28, 2021 03:00 PM [facility] [place] [facility] Aug 28, 2021 03:01 PM [facility] [place] [facility] Aug 28, 2021 03:15 PM [facility] Sep 03, 2021 04:00 PM [facility] - PS[facility]CHIATRY [facility] Sep 16, 2021 03:30 PM AMBULATORY PSYCHIATRY [facility] Immunizations: All administered on the encounter date This section contains immunizations associated to the Encounter. Immunization Series Date Issued Reaction Comments COVID-19 (MODERNA), MRNA, 2 May 31, 2021 MO D; [id number]; 07/11/2021 LNP-S, PF, 100 MCG/0.5 ML DOSE Social History: Smoking Status (Most current) and Tobacco Use (All prior to encounter date) This section includes the most current, and the historical, smoking and tobacco-related health factors from the [place] facility where the Encounter took place.Current Smoking Status This section includes the most current smoking, or tobacco-related health factor, from the [place] facility where the Encounter took place. Date/Time Current Smoking Status Comment Facility May 23, 2021 02:30 PM [place]-TOBACCO NEVER USED [facility] Encounter Notes: All associated encounter notes This section contains the clinical notes associated to the Encounter. Date/Time Encounter Note(s) Provider Source May 31, 2021 01:44 PREVENTIVE MEDICINE NURSING NOTE: Zonia CASTILLO [facility] LOCAL TITLE: CLINICAL REMINDERS/NURSING [facility] STANDARD TITLE: PREVENTIVE MEDICINE NURSING NOTE DATE OF NOTE: MAY 31, 2021@13:44 ENTRY DATE: MAY 31, 2021@13:44:16 AUTHOR: RADHA CASTILLO EXP COSIGNER: URGENCY: STATUS: COMPLETED COVID-19 Immunization: The patient was given the EUA fact sheet for th is vaccine which lists the benefits and side effects of the vaccine and [facility] reviews the risks of the vaccine. The fact sheet was reviewed with the p atient and they were given an opportunity to ask questions. The patient de nied any prior severe reaction to this vaccine or its components or a severe allergic reaction such as anaphylaxis to any vaccine or to any in jectable therapy. The patient gave verbal consent to receive the vacc ine. Dose #2 The patient received Moderna COVID-19 Vaccine 0 .5 ml IM. MVX (Manuf); Lot#; Exp Date: MOD; [id number]; 06/20 Administration Anatomic site: Left Deltoid, Right Deltoid Vaccine administered without complications. The patient was advised to remain in the facility for 15 minutes post vacc ination. The patient was given a completed COVID-19 vaccination record c damaris, a copy of the [facility] Side Effects and Adverse Events Reporting Fact Sheet and instructed on how to report any adverse reactions. /ivelisse/ Radha Castillo MSN RN CNL Firm Mail Manager Signed: 05/31/2021 13:47
--- OUTSIDE RECORDS SUMMARY | 2022-04-18 09:52 | XMS_ITS ---
:1990 Author Organization Department [facility] Address [address] [place] [address] Support Name Relationship Address Phone TETE TRAN Unavailable [address] [facility] [place] [address] THOMAS MONTOYA Unavailable [address] [facility] [address] Insurance Providers: All historical and current Section Date Range: From patient's date of to the date document was created.This section includes the names of all active insurance providers for the patient. Insurance Type of Plan Start of End of Group Member Insurance Policy P atient's Provider Coverage Name Policy Policy Number ID Provider's Ojeda's Relationship Coverage Coverage Telephone Name to Policy Number Ojeda [facility] Aug 03, [id number] ROSA MARIA ChapoAL PATIENT BEE GIMENEZ 2019 [id number] STEPHANIE JOHNSON [facility]GAN[facility] E DEPT Selected Encounter This section includes the information on record at [place] for the Encounter. Date/Time Encounter Type Encounter Reason Provider Source Description Apr 30, 2021 OT EVAL LOW OCCUPATIONAL ICD-10-CM G56.00 DORA AGUIRRE 01:30 PM COMPLEX 30 MIN THERAPY Carpal tunnel E syndrome, unspecified upper limb with Provider Comments: Carpal Tunnel Syndrome, unspecified upper Limb IHE Encounter Template Text not used by [place] Assessments - Encounter Diagnoses This section includes the primary and secondary diagnoses documented for the Encounter. Date/Time Primary/Secondary Diagnosis Name Provider Source Diagnosis Apr 30, 2021 PRIMARY Carpal tunnel DORA AG[facility]IRRE [facility] 03:57 PM syndrome, [facility] unspecified upper limb Plan of Treatment: Future Appointments (+ 6 months) and Future Tests (+/- 45 days) The Plan of Treatment section includes future care activities for the patient from all [place] [facility]. This section includes future appointments and future orders which are active, pending orscheduled.Future Appointments This section includes appointments that were scheduled to occur 6 months from the date of the Encounter, up to a maximum of 20 appointments. The data comes from all [place] treatment facilities. Appointment Date/Time Appointment Type Appointment Facili ty Name May 03, 2021 02:00 PM AM[facility]UL[facility]ORY [facility] [place] [facility] May 23, 2021 02:30 PM AMBULATORY - PS[facility]CHIATRY [facility] [place] [facility] May 31, 2021 02:00 PM AMBULATORY - MEDICINE [facility] [place] [facility] Jun 04, 2021 04:00 PM AMBULATORY - PS[facility]CHIATRY [facility] [place] [facility] Jun 18, 2021 04:00 PM AMBULATORY - PS[facility]IATRY [facility] [place] [facility] Jul 02, 2021 04:00 PM AMBULATORY - PS[facility]CHIATRY [facility] [place] [facility] Jul 03, 2021 12:00 PM AMBULATORY - PS[facility]CHIATRY [facility] [place] [facility] Jul 04, 2021 02:30 PM AMBULATORY - PS[facility]CHIATRY [facility] [place] [facility] Jul 11, 2021 01:00 PM AMBULATORY - MEDICINE [facility] [place] [facility] Jul 16, 2021 04:00 PM AMBULATORY - PS[facility]CHIATRY [facility] [place] [facility] Jul 18, 2021 01:30 PM AMBULATORY - PSYCHIATRY [facility] [place] [facility] Jul 25, 2021 02:30 PM AMBULATORY - PSYCHIATRY [facility] [place] [facility] Jul 26, 2021 09:00 AM AMBULATORY - MEDICINE [facility] [place] [facility] Jul 30, 2021 11:30 AM AMBULATORY - PSYCHIATRY [facility] [place] [facility] Aug 07, 2021 11:00 AM AMBULATORY - MEDICINE [facility] [place] [facility] Aug 13, 2021 07:30 AM AMBULATORY - NONE [facility] [place] [facility] Aug 19, 2021 02:00 PM AMBULATORY - PSYCHIATRY [facility] [place] [facility] Aug 28, 2021 10:20 AM [facility] Aug 28, 2021 03:00 PM [facility] Aug 28, 2021 03:01 PM [facility] Encounter Notes: All associated encounter notes This section contains the clinical notes associated to the Encounter. Date/Time Encounter Note(s) Provider Source Apr 30, 2021 01:31 PM OCCUPATIONAL MEDICINE CONSULT: MICHAEL AGUIRRE [facility] TITLE: CONSULT REPORT/OCCUPATIONAL THERAP Y [facility] STANDARD TITLE: OCCUPATIONAL MEDICINE CONSULT DATE OF NOTE: APR 30, 2021@13:31 ENTRY DATE: APR 30, 2021@13:31:40 AUTHOR: DORA AGUIRRE EXP COSIGNER: RAZA WYLIE URGENCY: STATUS: COMPLETED CONSULT REPORT/OCCUPATIONAL THERAPY Has ADD ENDA How does the patient/client best learn? Pictures , Reading, Listening, Demonstration Does the patient/client have any cultural and re ligious beliefs, emotional barriers, physical or cogniti ve limitations, and communication barriers which may impact his/her ability to learn? No Desire and motivation to learn? Good Occupational Therapy Evaluation: (hand) Initial Evaluation date: 04/30/2021 Date of note : 04/30/2021 Re-evaluation date: Treatment #: eval Treatment time: 26 minutes Diagnosis: Carpal Tunnel Syndrome, unspecified u pper Limb(ICD-10-CM G56.00) Provider: Raza Wylie DNP S: Mr. Montoya is a 31 y/o 100% [place] male w ho was referred to OT for R dominant numbness, tingling and pain. He was see n in the OT clinic on 04/30/2021. PMH: Active problems - Computerized Problem List is t he source for the followin. Bilateral shoulder joint pain 2. 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 Low back pain 6. Benign hypertension 7. Posttraumatic stress disorder (SN[place] [address] [id number]) HPI: Pt reports onset of intermittent pain and a ltered sensation starting 3 weeks ago. Pt reports decrea sed strength in his R dominant hand paired with the sensation of pins and needles in his first 3 dig its. He endorse pain on the volar aspect of the wrist; reaching a 6-[address] Imaging: none of the wrist in CPRS Pain Level: Intermittent pain, 6/10 Pain Location: Pt noted pain on the volar aspect of the wrist Aggravating factors: Pt denies being aware of an y positions that aggravate symptoms Alleviating factors: time, rest O: Pt 100% [place] and is R hand dominant. 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 He enjoys being outdoors, hiking, grilling, exercising and salsa dancing. Clinical Presentation: No atrophy noted in the thenar musculature or fi rst dorsal interossei Care Provider Strength Per Dynamometer: Measured in pound s per pressure (norms: age) (R) (L) 85# (norm: 120#) 125# (norm: 115#) 95# 130# 115# 130# Prehension Strength: pinch meter/pounds per pres sure (R) (L) Lat: 20# (norm: 26#) 15# (norms: 26#) 2 pt: 10# (norms:17#) 14# (norms: 17#) 3 pt: 15# (norms:25#) 35# (norms: 25#) Sensation: pt endorses intermittent paresthesia's and pain in median nerve distribution Palpation: No atrophy noted in thenar musculature or first dorsal interossei Special Tests: Tinel's over Carpal Tunnel: (-) Compression: (+) for paresth esia's started w/ MF and gradually moved to IF, and thumb. Reverse Phalen's: (+) slight pain in wrist TX: *Pt educated on dx's CTS and issued wrist immobi lization splint to be worn during sleeping hours only; pt educated on skin integrity and wearing schedule. *Instructed on HEP including median nerv e rocking and tendon glides exercises; pt was able to r/d and v/u. Issued handout w/ il lustrations and instructions. *discussed ergonomics w/ pt; maintaining neutral wrist alignment. Pt v/u. A: Pt presented w/ positive compression tests an d reverse Phalen's test suggestive of carpal tunnel syndrome. Pt was issued HEP and immobilizing splint for nocturnal use. Plan to check in with pt in 3 wks to discuss how he is responding to tx and review other tx options if necessary. P: Plan to call via telephone in 3 wks to discus s compliance with splint and review tx; modify as necessary. Pt is in agreeme nt w/ POC. Goals (3-4 weeks) 1. Compliant with nocturnal splinting 2. Reports 50% improvement since implementing H EP and splinting Patient Education Education provided on the following topics: POC, splint wear, care and precautions, ergonomics Education provided to: P Response to Education: AMADOR JEFFERS, PI Rausch Patient P Family F Significant Other SO Verbalizes Understanding VU Returns Demonstration RD Performs Independently PI Lacks Comprehension LC Refused Education RE Not Applicable NA The practitioner's co-signature on this note sig nifies agreement with plan of care and clinical diagnosis code. This treatment was primarily performed by CARMEN Modi, however, Dora Echeverria, MS OTR/L, CHT, was present during the course of this treatment in its entirety providing direct supervision for this student, I agree with treatment and plan of care as stated above. /ivelisse/ Dora Aguirre, MS OTR/L, CHT Occupational Therapist Signed: 04/30/2021 15:57 /ivelisse/ Raza Wylie DNP, LISSETH, DAVID Primary Care Nurse Practitioner Cosigned: 04/30/2021 15:58 05/22/2021 ADDENDUM STATUS: COMPLETED Left generic vm to call this sba underwriter back @ [phone]. /ivelisse/ Dora Aguirre, MS OTR/L, CHT Occupational Therapist Signed: 05/22/2021 14:34 /ivelisse/ Raza Wylie DNP, LISSETH, DAVID Primary Care Nurse Practitioner Cosigned: 05/22/2021 14:36
--- OUTSIDE RECORDS SUMMARY | 2022-04-18 09:52 | XMS_ITS | Encounter Summary ---
:1990 Author Organization Department [facility] Address [address] [place] [address] Support Name Relationship Address Phone TETE TRAN Unavailable [address] [facility] [place] [address] THOMAS MONTOYA Unavailable [address] [facility] [place] [address] Insurance Providers: All historical and current Section Date Range: From patient's date of to the date document was created.This section includes the names of all active insurance providers for the patient. Insurance Type of Plan Start of End of Group Member Insurance Policy P atient's Provider Coverage Name Policy Policy Number ID Provider's Ojeda's Relationship Coverage Coverage Telephone Name to Policy Number Ojeda [facility] Aug 03, [id number] ROSA MARIA ChapoMO PATIENT BEE GIMENEZ 2019 [id number] STEPHANIE JOHNSON [facility] DEPT Selected Encounter This section includes the information on record at [facility] for the Encounter. Date/Time Encounter Type Encounter Reason Provider Source Description May 23, 2021 Outpatient TELEPHONE ICD-10-CM F43.10 MATY STUART 02:30 PM Encounter Post-traumatic ELYN stress disorder, unspecified with Provider Comments: Posttraumatic stress disorder ([facility] [id number]) IHE Encounter Template Text not used by [facility] Assessments - Encounter Diagnoses This section includes the primary and secondary diagnoses documented for the Encounter. Date/Time Primary/Secondary Diagnosis Name Provider Source Diagnosis May 23, 2021 PRIMARY Post-traumatic WINSTON STUART [facility] 02:30 PM stress disorder, [facility] unspecified May 23, 2021 SECONDARY Major depressive WINSTON STUART [facility] 02:30 PM disorder, [facility] recurrent, moderate Plan of Treatment: Future Appointments (+ 6 months) and Future Tests (+/- 45 days) The Plan of Treatment section includes future care activities for the patient from all [facility]. This section includes future appointments and future orders which are active, pending orscheduled.Future Appointments This section includes appointments that were scheduled to occur 6 months from the date of the Encounter, up to a maximum of 20 appointments. The data comes from all [place] treatment facilities. Appointment Date/Time Appointment Type Appointment Facili ty Name May 31, 2021 02:00 PM AMBULATORY - MEDICINE [facility] [place] [facility] Jun 04, 2021 04:00 PM AMBULATORY - PSYCHIATRY [facility] [place] [facility] Jun 18, 2021 04:00 PM AMBULATORY - PSYCHIATRY [facility] [place] [facility] Jul 02, 2021 04:00 PM AMBULATORY - PSYCHIATRY [facility] [place] [facility] Jul 03, 2021 12:00 PM AMBULATORY - PSYCHIATRY [facility] [place] [facility] Jul 04, 2021 02:30 PM AMBULATORY - PSYCHIATRY [facility] [place] [facility] Jul 11, 2021 01:00 PM AMBULATORY - MEDICINE [facility] [place] [facility] Jul 16, 2021 04:00 PM AMBULATORY - PSYCHIATRY [facility] [place] [facility] Jul 18, 2021 01:30 PM AMBULATORY - PSYCHIATRY [facility] [place] [facility] Jul 25, 2021 02:30 PM AMBULATORY - PSYCHIATRY [facility] [place] [facility] Jul 26, 2021 09:00 AM AMBULATORY - MEDICINE [facility] [place] [facility] Jul 30, 2021 11:30 AM AMBULATORY - PSYCHIATRY [facility] [place] [facility] Aug 07, 2021 11:00 AM AMBULATORY - MEDICINE [facility] [place] [facility] Aug 13, 2021 07:30 AM AMBULATORY - NONE [facility] [place] [facility] Aug 19, 2021 02:00 PM AMBULATORY - PSYCHIATRY [facility] [place] [facility] Aug 28, 2021 10:20 AM AMBULATORY - MEDICINE [facility] [place] [facility] Aug 28, 2021 03:00 PM AMBULATORY - MEDICINE [place] [facility] [place] [facility] Aug 28, 2021 03:01 PM AMBULATORY - MEDICINE [facility] [place] [facility] Aug 28, 2021 03:15 PM AMBULATORY - MEDICINE [facility] [place] [facility] Sep 03, 2021 04:00 PM AMBULATORY [facility]ATRY [facility] Social History: Smoking Status (Most current) and Tobacco Use (All prior to encounter date) This section includes the most current, and the historical, smoking and tobacco-related health factors from the [place] facility where the Encounter took place.Current Smoking Status This section includes the most current smoking, or tobacco-related health factor, from the [place] facility where the Encounter took place. Date/Time Current Smoking Status Comment Facility May 23, 2021 02:30 PM VA-TOBACCO NEVER USED [place] C [facility] Encounter Notes: All associated encounter notes This section contains the clinical notes associated to the Encounter. Date/Time Encounter Note(s) Provider Source May 23, 2021 01:19 TELEPHONE ENCOUNTER NOTE: DENISE STUART [facility] LOCAL TITLE: TELEHEALTH TELEPHONE NOTE [facility] STANDARD TITLE: TELEPHONE ENCOUNTER NOTE DATE OF NOTE: MAY 23, 2021@13:19 ENTRY DATE: MAY 23, 2021@13:19:27 AUTHOR: DENISE STUART EXP COSIGNER: URGENCY: STATUS: COMPLETED Time Spent: 10 minutes Patient consents to telehealth telephone visit t esteban for mental health follow up. GEORGE MONTOYA, a 31 year old WHITE MALE had telehealth telephone visit today for mental health follow up. MENTAL HEALTH NOTE: had telehealth telephone visit for 10 mi n for routine follow up. Two forms of identification was used. DIAGNOSES AND PROBLEMS TREATED THIS VISIT: TBI, PTSD, MDD, Recurrent, Moderate to Severe ru le out with psychotic features, Sleep Deprivation, Cannabis Use SUBJECTIVE: George says he is doing pretty wel l. He says he is still adjusting to his new job. He reports some depres lyndsey still that occurs almost every day. He feels like isolating at times. He finds he is more easily irritated. He will have dist urbing thoughts about his daughters being blown up by IED's. He says these dis turbing thoughts occur at night sometimes and other times during the day. George says he isn't slee ping very well and is tired a lot of the time. He continues in therapy with Shilpi zacarias and feels supported by her. He denies any current suicidal thinking and denies any active plans for self-harm or intent. SUBSTANCE ABUSE: Caffeine: denies Tobacco: denies Cocaine: denies Opioid: denies Alcohol: Says he doesn't drink alcohol v milvia much. He says he will drink a beer every few months. 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 TAKE 2ND DAILY DOSE IN THE EARLY AFTERNOON. 2) ESCITALOPRAM OXALATE 20MG TAB TAKE ONE TABLET BY ACTIVE MOUTH EVERY MORNING FOR MOOD/DEPRESSION 3) GABAPENTIN 400MG CAP TAKE ONE CAPSULE BY MOUT H THREE ACTIVE TIMES A DAY FOR 4) PRAZOSIN HCL 1MG CAP TAKE ONE CAPSULE BY MOUT H AT ACTIVE BEDTIME NEEDED FOR OFF LABEL USE FOR PTSD SYMPTOMS. TO TAKE ALONG WITH THE 5 MG CAPSULE. 5) PRAZOSIN HCL 5MG CAP TAKE ONE CAPSULE BY MOUT H AT ACTIVE BEDTIME MEDICATION ADHERENCE: takes medications most day s MEDICATION SIDE EFFECTS: none OBJECTIVE:recent labs:LAB RESULTS LAST 1440 HRS - NONE FOUND Weight: 184 lb [83.6 kg] (07/04/2020 15:23) BMI: 28.0 MENTAL STATUS EXAM: Orientation and Consciousness: Alert and fully o riented. Behavior: calm and cooperative. He sounds tired on the phone. Speech: Normal rate and volume. Mood/Affect: I'm having a hard time. Affect: c onstricted. Thought Production/Content: Logical, sequential & relevant to discussion. Perceptual Disturbances: None. Attention, concentration and memory based on ans wers to session questions: Good. Insight/Judgment: Both good. SI/HI: Neither elicited. Ability to Provide informed consent: Yes. ASSESSMENT:31 year old WHITE MALE, prese [facility] today for mental health follow up. TREATMENT PLAN/ DISCUSSION/ RATIONALE: 1.::: Medication management: Reviewed medication s with George today. He has been taking lexapro 20 mg, gabapentin 400 mg TID , Prazosin 6 mg qHS and Wellbutrin SR 100 mg BID. George denies any yobani e effects from these medications. George reports increased d epressive and PTSD symptoms lately. We discussed options today for addressing these. Re commend an increase in his gabapentin from 400 mg TID to 400 mg QID. He can take an extra 400 mg dose at night to see if this might b e helpful for his sleep. Also recommend an increase in the prazosin dose from 6 mg qHS to 8 mg qHS. George denies any side effects to either medication at his previous doses. Tej dale denies any suicidal thinking currently. He continues to meet with guido Del Angel. George says it was about this time last year when he checked himself into the hospital for his depression and PTSD. He doesn't feel he is at that point right now, though he is struggling some. Next Visit: in 1 month or sooner if needed. Patient is aware of how to access [facility] open acce MH clinic in [facility] during weekdays for immediate mental health n eeds if I am not available. Patient has capacity to make his own medication decisions at present time. I asked the patient to come for sooner appointme nt if the patient does not like the effect of psychiatric medication or if has s bernadette effects with psychiatric medication. The patient's primary care physician follows blo od pressure, weights, lipids, glucose The pt understands not to combine psychiatric me ds with alcohol or street drugs. Because the pt reports significan t benefit from psychiatric medication, it is reasonable to continue to prescribe the ps ychiatric medication, even if there is risk of relapse to substance abuse -- t he benefits of psychiatric medications outweigh the risks, even in the setting of substance abuse (and by helping to calm psychiatric symptoms, the medica tions may help decrease the risk/severity of substance abuse relapses) ::: Psychotropic meds were reconciled; and no di screpancies were noted. Discussed R/B/SE/A and necessity for lab monito ring; as well as off-label use, drug-drug interactions, potential for suic idal thinking with some psychotropics. Patient provided with updated me dication list and reminded of importance of ensuring that changes includin g OTCs/herbals get added. Patient voiced understanding and agreement with current treatment plan. ::: Reviewed most recent labs, No studies ordere d at this visit. ::: Had a supportive discussion with pt and cont to provide psychoeducation and brief supportive therapy including again pr oviding psychoeducation on sleep hygiene, diet, exercise and med complianc e. Pt agrees to present to ER or call 911 for psychiatric emergencies, inc herreraing SI/HI. ::: SAFETY PLAN: Pt was educated about emergency services available at this facility e.g., ER) and in the community (i ncluding Crisis Line, 911, [place] National Suicide Prevention Lifeline: 0-987- 464-TALK). Patient is instructed to contact me should symptoms worsen or side effects develop. Pt agreed to use these resources if warranted. ::: Pt was educated about risks of interactions between drugs/alcohol and psychotropic medications and voiced denise crowe. Pt was also warned not to drive or operate heavy machinery until the e ffects of psychotropic medications is known. CRISIS PLAN: The patient denied suicidal and violent ideation, but the [facility] Crisis Line information and number were given to patient. Th e patient also understands to call 911 or to go to ER in the event of an emerg ency. Medication Reconciliation: Outpatient: Has the patient been taking medications as docu mented in the EMLR? YES: The patient has been taking medications as documented in the EMLR. Essential Medication List for Review used to co mplete this medication reconciliation. INCLUDED IN THIS LIST: Alphabetical list of act cristy outpatient prescriptions dispensed from this VA (local) an d dispensed from another VA or DoD facility (remote) as well as inpatien t orders (local, pending and active), local clinic medications, locally documented non-VA medications, and local prescriptions that have or been discontinued in the past 90 days. - All changes in medications, including all non -VA/Herbal/OTC medications were entered into CPRS. - If there were any medications the patient vale uld no longer take, they were discontinued. - The patient/caregiver was instructed to updat e this list, discard old lists, and take this list to the next appointme nt, whether with a VA or non-VA provider. Alcohol Use Screen (AUDIT-C): Alcohol Screen: SCREEN FOR ALCOHOL (AUDIT-C) An alcohol screening test (AUDIT-C) was negativ e (score=1). 1. How often did you have a drink containing al cohol in the past year? Monthly or less 2. How many drinks containing alcohol did you h ave on a typical day when you were drinking in the past year? One or two drinks 3. How often did you have six or more drinks on one occasion in the past year? Never PCL Needed for PTSD: The patient could not be evaluated due to an ac ana paula illness. Comment: is currently at work and unabl e to discuss. Tobacco Use Screening: The patient has never used tobacco. /es/ DENISE STUART MD PSYCHIATRIST Signed: 05/23/2021 15:10 Receipt Acknowledged By: * AWAITING SIGNATURE * ANIVAL DEL ANGEL
--- OUTSIDE RECORDS SUMMARY | 2022-04-18 09:52 | XMS_ITS | Encounter Summary ---
:1990 Author Organization [employer] rs Address [address] [place] [address] Support Name Relationship Address Phone TETE TRAN Unavailable [address] [facility] [phone] [address] [place] [address] THOMAS MONTOYA Unavailable [address] [facility] [place] [address] Insurance Providers: All historical and current Section [...] Name to Policy Number [facility] Aug 03, [id number] [phone] ROSINA CALLAHAN 2019 [id number] [facility] Selected Encounter This section includes the information on record at MD for the Encounter. Date/Time Encounter Type Encounter Description Reason Provider Source May 03, 2021 02:00 Outpatient Encounter TELEPHONE TRIAGE PM [facility] Encounter Template Text not used by MD Plan of Treatment: Future Appointments (+ 6 months) and Future Tests (+/- 45 days) The Plan of Treatment section includes future care activities for the patient from all MD treatmentfacilities. This section includes future appointments and future orders which are active, pending orscheduled.Future Appointments This section includes appointments that were scheduled to occur 6 months from the date of the Encounter, up to a maximum of 20 appointments. The data comes from all MD treatment facilities. Appointment Date/Time Appointment Type Appointment Facili ty Name May 23, 2021 02:30 PM AMBULATORY - PSYCHIATRY [facility] May 31, 2021 02:00 PM AMBULAT[facility]ICINE [facility] [place] [facility] Jun 04, 2021 04:00 PM AMBULATORY [facility] [place] [facility] Jun 18, 2021 04:00 PM AMBULATORY - [facility] [place] [facility] Jul 02, 2021 04:00 PM AMBULATORY - [facility] [place] [facility] Jul 03, 2021 12:00 PM AMBULATORY [facility] [place] [facility] Jul 04, 2021 02:30 PM AMBULATORY [facility] [place] [facility] Jul 11, 2021 01:00 PM AMBULATORY [facility] [place] [facility] Jul 16, 2021 04:00 PM AMBULATORY - [facility] [place] [facility] Jul 18, 2021 01:30 PM AMBULATORY - [facility] [place] [facility] Jul 25, 2021 02:30 PM AMBULATORY - [facility] [place] [facility] Jul 26, 2021 09:00 AM AMBULATORY - [facility]ICINE [facility] [place] [facility] Jul 30, 2021 11:30 AM AMBULATORY - PS[facility]IATRY [facility] [place] [facility] Aug 07, 2021 11:00 AM AMBULATORY - [facility]ICINE [facility] [place] [facility] Aug 13, 2021 07:30 AM AMBULATORY - NONE [facility] [place] [facility] Aug 19, 2021 02:00 PM AMBULATORY - PS[facility]CHIAT[facility] [place] [facility] Aug 28, 2021 10:20 AM AMBULATORY - MEDICINE [facility] [place] [facility] Aug 28, 2021 03:00 PM AMBULATORY - [facility]IC[facility] [place] [facility] Aug 28, 2021 03:01 PM AMBULATORY - [facility]IC[facility] [place] [facility] Aug 28, 2021 03:15 PM AMBULATORY - [facility]IC[facility] [place] [facility] Encounter Notes: All associated encounter notes This section contains the clinical notes associated to the Encounter. Date/Time Encounter Note(s) Provider Source May 03, 2021 02:00 PM TELEPHONE ENCOUNTER NOTE: GLEN BATES [facility] LOCAL TITLE: VISN 1 CCC ACTION REQUIRED [place] [facility] STANDARD TITLE: TELEPHONE ENCOUNTER NOTE DATE OF NOTE: MAY 03, 2021@14:00:33 ENTRY DATE: MAY 03, 2021@14:02:02 AUTHOR: GLEN BATES EXP COSIGNER: URGENCY: STATUS: COMPLETED The patient, GEORGE MONTOYA ([id number]) called the call center. The following identifiers were used to verify th is patient: . SSN. Contact Type of call: ADMINISTRATIVE. Caller Response: ADM CALL RESOLVED Caller Area: [facility] Provider Info: LOCAL - [facility] [place] [facility] ([phone]) PACT: NO PACT 7 (Focus: Primary Care Only) Primary Care Provider: Rzaa Wylie PH ONE:[phone] Inker Machine: Eris Reynolds PHONE :[phone] Clinical Associate: Aram Francisco PHONE:[phone] Physician Executive: Yesika Borden PHONE:[phone] PACT Clinical Pharmacist: Dipti Pittman PHONE:[phone] Clinical POC: Inker Machine Eris Reynolds PHONE:[phone] Administrative POC: Physician Executive Yesika Borden PHONE:[phone] MH: [facility] MHC TEAM (mhtc) Blender / Cook Ramya Hernandez PHON E:[id number] Author: GLEN BATES Comments: [place] reports he will be a couple minutes lat e for covid vaccine appt. Imported Information: Appointments S: 05/03/2021 2:00:00 PM CWM/NO/COVID VACCINE Evaluation/Management Code: HC PRO PHONE CALL 5- 10 MIN ([phone]). Starting at: 05/03/2021 @ 2:00:33 PM Ending at: 05/03/2021 @ 2:01:24 PM Length: 0 minutes. Chief Complaint: Not applicable to call. Class Code: Other specified counseling. 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
--- OUTSIDE RECORDS SUMMARY | 2022-04-18 09:52 | XMS_ITS | Continuity of Care Document ---
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 ation. This assay has been validated pursuant to the CLIA regulations and is used for clinical purposes. Test Performed by [employer] Betty [employer] [place], [address] [place], [place] Ronald Abdul M.D., Ph.D., Director of Laboratories , CLIA [id number] TEST PERFORMED AT: , Ordering Provid er: DIMITRI SCRUGGS Report Released Date/Time: Feb 07, 2022 01:29 PM Reporting Lab: [facility] [address] [facility] [address] Performing Lab: [facility] [address] [facility] [address], [address] [place] [address] BABESIA BABESIA <1:20 02/07 Specimen Type: S [facility]IN [facility] MICROTI MICROTI /2021 Comment: REFERE NCE RANGE: <1:64 REFERENCE RANGE: <1:20 Antibody Not Detected Elevated antibody levels to B. microti indicate exposure to the organism. Human babesiosis infection is transm WSTRN ANTIBODI IGM AB itted by the bi te of an infected Ixodes tick or less frequently from transfusion with blood from an infected donor. Definitive diagnosis is made by identifying intraerythrocytic organisms in peripheral MASSCHUSE ES (IgG, [TITER] IN blood. In pa tients with low parasitemia, antibody detection by IFA is recommended. IgG levels greater than or equal to 1:1024 can be detected in acute phase patients with parasites in blood smears. The [facility] IgM) SERUM IFA assay can be used as a seroepidemiologic tool to study the frequency and distribution of B. microti in endemic areas especially in persons with mixed infections also involving Borrelia burgdorferi. This test was de veloped and its analytical performance characteristics have been determined by [employer], [place]. It has not been cleared or approved by the U.S. Food an d Drug Administr [facility]. This assay has been validated pursuant to the CLIA regulations and is used for clinical purposes. Test Performed by [employer], [id number] [address] [employer], [place], [place] Ronald Abdul M.D., Ph.D., Director of Laboratories , CLIA [id number] TEST PERFORMED AT: , Ordering Provid er: DIMITRI SCRUGGS Report Released Date/Time: Feb 07, 2022 01:29 PM Reporting Lab: [facility] [address] [facility] [address] Performing Lab: [facility] [address], [address] [facility] [address] BABESIA BABESIA SEE NOTE 02/07 Specimen Type: SERUM [facility] MICROTI MICROTI AB /2021 Comment: REF ERENCE RANGE: <1:64 REFERENCE RANGE: <1:20 Antibody Not Detected Elevated antibody levels to B. microti indicate exposure to the organism. Human babesiosis infection is transm WSTRN ANTIBODI INTER itted by the bi te of an infected Ixodes tick or less frequently from transfusion with blood from an infected donor. Definitive diagnosis is made by identifying intraerythrocytic organisms in peripheral MASSCHUSE ES (IgG, blood. In patie nts with low parasitemia, antibody detection by IFA is recommended. IgG levels greater than or equal to 1:1024 can be detected in acute phase patients with parasites in blood smears. The [facility] IgM) IFA assay can be used as a seroepidemiologic tool to study the frequency and distribution of B. microti in endemic areas especially in persons with mixed infections also involving Borrelia burgdorferi. This test was de veloped and its analytical performance characteristics have been determined by [place]. It has not been cleared or approved by the U.S. Food an d Drug Administr ation. This assay has been validated pursuant to the CLIA regulations and is used for clinical purposes. Test Performed by [employer] Tripp, [employer], [id number] [address] [employer], [place], [place] Ronald Abdul M.D., Ph.D., Director of Laboratories , CLIA [id number] TEST PERFORMED AT: , Ordering Provid er: DIMITRI SCRUGGS Report Released Date/Time: Feb 07, 2022 01:29 PM Reporting Lab: [facility] [address] [facility] [address] Performing Lab: [facility] [address], [address] [facility] [address] ANAPLASM EHRLICHIA <1:64 02/07 Specimen Type : SERUM [facility] /2021 Comment: REF ERENCE RANGE: <1:64 REFERENCE RANGE: <1:20 Antibody Not Detected Ehrlichia chaffeenis has been identified as the causative agent of Human Monocytic Ehrlichiosis (HME). Infecte [facility] EHRLICHI S IGG AB d individuals produce specific antibodies to E. chaffeensis that can be detected by an immuno- fluorescent antibody (IFA) test. Single IgG IFA titers of 1:64 or greater indicate exposure to E. chaffeens MASSCHUSE A AB [PRESENCE] is. A four-fo ld rise in IgG titers between acute and convalescent samples and/or the presence of IgM antibody against E. chaffeensis suggest recent or current infection. This test was developed and its TS HCS PANEL IN SERUM analytical perf ormance characteristics have been determined by [place]. It has not been cleared or approved by the U.S. Food and Drug Administration. This assa y has been valid ated pursuant to the CLIA regulations and is used for clinical purposes. REFERENCE RANGE: <1:64 REFERENCE RANGE: <1:20 Antibody Not Detected Anaplasma phagocytophilum is th e tick-borne age nt causing Human Granulocytic Ehrlichiosis (HGE). HGE is distinct and separate from Human Monocytic Ehrlichiosis (HME), caused by Ehrlichia chaffeensis. Serologic crossreactivity between A. phagocyto- p hilum and E. chaffeensis is minimal (5-15%). This test was developed and its analytical performance characteristics have been determined by [employer]. It has not been cleared or approved by the U.S. Food and Drug Administration. This assay has been validated pursuant to the CLIA regulations and is used for clinical purposes. Test Performed by Betty Aragon, [employer] [place], [address] [place], [place] Ronald Abdul M.D., Ph.D., Director of Laboratories , [place] [id number] TEST PERFORMED AT: , Ordering Provid er: DIMITRI SCRUGGS Report Released Date/Time: Feb 07, 2022 01:33 PM Reporting Lab: [facility] [address] [facility] [address] Performing Lab: [facility] [address] [facility] [address], [address] [facility] [address] ANAPLASM EHRLICHIA <1:20 02/07 Specimen Type : SERUM [facility] A AND CHAFFE Comment: REF ERENCE RANGE: <1:64 REFERENCE RANGE: <1:20 Antibody Not Detected Ehrlichia chaffeenis has been identified as the causative agent of Human Monocytic Ehrlichiosis (HME). Infecte [facility] EHRLICHI S IGM AB d individuals produce specific antibodies to E. chaffeensis that can be detected by an immuno- fluorescent antibody (IFA) test. Single IgG IFA titers of 1:64 or greater indicate exposure to E. chaffeens MASSCHUSE A AB [PRESENCE] is. A four-fo ld rise in IgG titers between acute and convalescent samples and/or the presence of IgM antibody against E. chaffeensis suggest recent or current infection. This test was developed and its [facility] PANEL IN SERUM analytical perf ormance characteristics have been determined by [employer] [facility], [place], [place]. It has not been cleared or approved by the U.S. Food and Drug Administration. This assa y has been valid ated pursuant to the CLIA regulations and is used for clinical purposes. REFERENCE RANGE: <1:64 REFERENCE RANGE: <1:20 Antibody Not Detected Anaplasma phagocytophilum is th e tick-borne age nt causing Human Granulocytic Ehrlichiosis (HGE). HGE is distinct and separate from Human Monocytic Ehrlichiosis (HME), caused by Ehrlichia chaffeensis. Serologic crossreactivity between A. phagocyto- p hilum and E. chaffeensis is minimal (5-15%). This test was developed and its analytical performance characteristics have been determined by [employer] [place], [place]. It has not been cleared or approved by the U.S. Food and Drug Administration. This assay has been validated pursuant to the CLIA regulations and is used for clinical purposes. Test Performed by Betty Aragon, [employer] [place], [address] [place], [place] Ronald Abdul M.D., Ph.D., Director of Laboratories , CLIA [id number] TEST PERFORMED AT: , Ordering Provid er: DIMITRI SCRUGGS Report Released Date/Time: Feb 07, 2022 01:33 PM Reporting Lab: [facility] [address] [facility] [address] Performing Lab: [facility] [address] [facility], [address] [facility] [address] ANAPLASM ANAPLASMA <1:64 02/07 Specimen Type : SERUM [facility] A AND PHAGOCYT /2021 Comment: REF ERENCE RANGE: <1:64 REFERENCE RANGE: <1:20 Antibody Not Detected Ehrlichia chaffeenis has been identified as the causative agent of Human Monocytic Ehrlichiosis (HME). Infecte [facility] EHRLICHI HILUM IGG d individuals produce specific antibodies to E. chaffeensis that can be detected by an immuno- fluorescent antibody (IFA) test. Single IgG IFA titers of 1:64 or greater indicate exposure to E. chaffeens MASSCHUSE A AB AB [TITER] is. A four-fo ld rise in IgG titers between acute and convalescent samples and/or the presence of IgM antibody against E. chaffeensis suggest recent or current infection. This test was developed and its [facility] PANEL IN SERUM analytical perf ormance characteristics have been determined by [place]. It has not been cleared or approved by the U.S. Food and Drug Administration. This assa BY y has been valid ated pursuant to the CLIA regulations and is used for clinical purposes. REFERENCE RANGE: <1:64 REFERENCE RANGE: <1:20 Antibody Not Detected Anaplasma phagocytophilum is th IMMUNOFLUO e tick-borne agent causing Human Granulocytic Ehrlichiosis (HGE). HGE is distinct and separate from Human Monocytic Ehrlichiosis (HME), caused by Ehrlichia chaffeensis. Serologic crossreactivity between RESCENCE A. phagocyto- philum and E. chaffeensis is minimal (5-15%). This test was developed and its analytical performance characteristics have been determined by [place], [place]. It has not been cleared or approved by the U.S. Food and Drug Administration. This assay has been validated pursuant to the CLIA regulations and is used for clinical purposes. Test Performed by Richie myers Betty, [employer] [facility], [address] [place] [address] Ronlad Abdul M.D., Ph.D., Director of Laboratories , CLIA [id number] TEST PERFORMED AT: , Ordering Provid er: DIMITRI SCRUGGS Report Released Date/Time: Feb 07, 2022 01:33 PM Reporting Lab: [facility] [address] [facility] [address] Performing Lab: [facility] [address] [facility], [address] [facility] [address] ANAPLASM ANAPLASMA <1:20 02/07 Specimen Type : SERUM [facility] A AND PHAGOCYT /2021 Comment: REF ERENCE RANGE: <1:64 REFERENCE RANGE: <1:20 Antibody Not Detected Ehrlichia chaffeenis has been identified as the causative agent of Human Monocytic Ehrlichiosis (HME). Infecte WSTRN EHRLICHI HILUM IGM d individuals produce specific antibodies to E. chaffeensis that can be detected by an immuno- fluorescent antibody (IFA) test. Single IgG IFA titers of 1:64 or greater indicate exposure to E. chaffeens MASSCHUSE A AB AB [TITER] is. A four-fo ld rise in IgG titers between acute and convalescent samples and/or the presence of IgM antibody against E. chaffeensis suggest recent or current infection. This test was developed and its HCS PANEL IN SERUM analytical perf ormance characteristics have been determined by [employer], [place]. It has not been cleared or approved by the U.S. Food and Drug Administration. This assa BY y has been valid ated pursuant to the CLIA regulations and is used for clinical purposes. REFERENCE RANGE: <1:64 REFERENCE RANGE: <1:20 Antibody Not Detected Anaplasma phagocytophilum is th IMMUNOFLUO e tick-borne agent causing Human Granulocytic Ehrlichiosis (HGE). HGE is distinct and separate from Human Monocytic Ehrlichiosis (HME), caused by Ehrlichia chaffeensis. Serologic crossreactivity between RESCENCE A. phagocyto- philum and E. chaffeensis is minimal (5-15%). This test was developed and its analytical performance characteristics have been determined by [employer] [place], [place]. It has not been cleared or approved by the U.S. Food and Drug Administration. This assay has been validated pursuant to the CLIA regulations and is used for clinical purposes. Test Performed by Betty Aragon, [employer] [facility], [address] [place] [address] Ronald Abdul M.D., Ph.D., Director of Laboratories , CLIA [id number] TEST PERFORMED AT: , Ordering Provid er: DIMITRI SCRUGGS Report Released Date/Time: Feb 07, 2022 01:33 PM Reporting Lab: [facility] [address] [facility] [address] Performing Lab: [facility] [address] [facility], [address] [place] [address] ANAPLASM EHRLICHIA SEE NOTE 02/07 Specimen Typ e: [facility] /20[facility] Comment: REF ERENCE RANGE: <1:64 REFERENCE RANGE: <1:20 Antibody Not Detected Ehrlichia chaffeenis has been identified as the causative agent of Human Monocytic Ehrlichiosis (HME). Infecte [facility] EHRLICHI S AB INTER d individual s produce specific antibodies to E. chaffeensis that can be detected by an immuno- fluorescent antibody (IFA) test. Single IgG IFA titers of 1:64 or greater indicate exposure to E. chaffeens MASSUSE A AB is. A four-fold rise in IgG titers between acute and convalescent samples and/or the presence of IgM antibody against E. chaffeensis suggest recent or current infection. This test was developed and its [facility] PANEL analytical perfo rmance characteristics have been determined by [employer]. It has not been cleared or approved by the U.S. Food and Drug Administration. This assa y has been valid ated pursuant to the CLIA regulations and is used for clinical purposes. REFERENCE RANGE: <1:64 REFERENCE RANGE: <1:20 Antibody Not Detected Anaplasma phagocytophilum is th e tick-borne age nt causing Human Granulocytic Ehrlichiosis (HGE). HGE is distinct and separate from Human Monocytic Ehrlichiosis (HME), caused by Ehrlichia chaffeensis. Serologic crossreactivity between A. phagocyto- p hilum and E. chaffeensis is minimal (5-15%). This test was developed and its analytical performance characteristics have been determined by [employer] [place], [place]. It has not been cleared or approved by the U.S. Food and Drug Administration. This assay has been validated pursuant to the CLIA regulations and is used for clinical purposes. Test Performed by Richie myers Tripp, [employer] [facility], [address] [place] [address] Ronald Abdul M.D., Ph.D., Director of Laboratories , CLIA [id number] TEST PERFORMED AT: , Ordering Provid er: DIMITRI SCRUGGS Report Released Date/Time: Feb 07, 2022 01:33 PM Reporting Lab: [facility] [address] [facility] [address] Performing Lab: [facility] [address] [facility], [address] [facility] [address] ANAPLASM A. SEE NOTE 02/07 Specimen Type: SERUM [facility] A AND phagocyt /2021 Comment: REF ERENCE RANGE: <1:64 REFERENCE RANGE: <1:20 Antibody Not Detected Ehrlichia chaffeenis has been identified as the causative agent of Human Monocytic Ehrlichiosis (HME). Infecte WSTRN EHRLICHI hilum d individuals p roduce specific antibodies to E. chaffeensis that can be detected by an immuno- fluorescent antibody (IFA) test. Single IgG IFA titers of 1:64 or greater indicate exposure to E. chaffeens MASSCHUSE A AB inter is. A four-fold rise in IgG titers between acute and convalescent samples and/or the presence of IgM antibody against E. chaffeensis suggest recent or current infection. This test was developed and its [facility] PANEL analytical perfo rmance characteristics have been determined by [employer] [place], [place]. It has not been cleared or approved by the U.S. Food and Drug Administration. This assa y has been valid ated pursuant to the CLIA regulations and is used for clinical purposes. REFERENCE RANGE: <1:64 REFERENCE RANGE: <1:20 Antibody Not Detected Anaplasma phagocytophilum is th e tick-borne age nt causing Human Granulocytic Ehrlichiosis (HGE). HGE is distinct and separate from Human Monocytic Ehrlichiosis (HME), caused by Ehrlichia chaffeensis. Serologic crossreactivity between A. phagocyto- p hilum and E. chaffeensis is minimal (5-15%). This test was developed and its analytical performance characteristics have been determined by [employer] [place], [place]. It has not been cleared or approved by the U.S. Food and Drug Administration. This assay has been validated pursuant to the CLIA regulations and is used for clinical purposes. Test Performed by Richie myersDayton Va Medical Centery, [facility], [address] [place] [address] Ronald Abdul M.D., Ph.D., Director of Laboratories , CLIA [id number] TEST PERFORMED AT: , Ordering Provid er: DIMITRI SCRUGGS Report Released Date/Time: Feb 07, 2022 01:33 PM Reporting Lab: [facility] [address] [facility] [address] Performing Lab: [facility] [address] [facility], [address] [facility] [address] BABESIA BABESIA Not 02/07 Specimen Type: B LOOD [facility] MICROTI, MICROTI Detected /2021 Comment: The analytical performance characteristics of this test have been determined by [facility]. It has not been cleared by the FDA. WSTRN DNA DNA Ordering Provid er: DIMITRI SCRUGGS PCR([facility]) [PRESENCE] Report Rele ased Date/Time: Feb 07, 2022 01:29 PM TS HCS IN BLOOD Reporting Lab: [facility] BY LIZET [address] [place] [phone] WITH PROBE Performing L ab: [facility] DETECTION [address] [facility] [address] COREY RICKETTSIA Not 02/07 Specimen Typ e: SERUM [facility] [place] RICKETTSII Detected /2021 Comment: Te st Performed by [employer], [employer], [address] [place] [address] Ronald Abdul M.D., Ph.D., Director of Laboratories , CLIA [id number] TEST PERFORMED AT: , WSTRN ANTIBODY IGG AB Ordering Provi rasheed: DIMITRI SCRUGGS PANEL [PRESENCE] Report Relea sed Date/Time: Feb 07, 2022 01:33 PM TS HCS (Q) IN SERUM Reporting Lab: [address] [address] Performing Lab: [facility] [address] [facility], [address] [facility] [address] COREY RICKETTSIA Not 02/07 Specimen Typ e: SERUM [facility] [place] RICKETTSII Detected /2021 Comment: Te st Performed by [employer], [employer], [address] [place], [place] Ronald Abdul M.D., Ph.D., Director of Laboratories , CLIA [id number] TEST PERFORMED AT: , WSTRN ANTIBODY IGM AB Ordering Provi rasheed: DIMITRI SCRUGGS PANEL [PRESENCE] Report Relea sed Date/Time: Feb 07, 2022 01:33 PM TS HCS (Q) IN SERUM Reporting Lab: [facility] [place] [facility] [address] [facility] [address] Performing Lab: [facility] [address], [address] [facility] [address] COREY RICKETTSIA Not 02/07 Specimen Typ e: SERUM [facility] IA TYPHI IGM Detected Comment: Lashawn t Performed by [employer] [facility], [employer] [facility], [address] [place] [address] Ronald Abdul M.D., Ph.D., Director of Laboratories , CLIA [id number] TEST PERFORMED AT: , [facility] ANTIBODY AB Ordering Provi rasheed: DIMITRI SCRUGGS MASSCHUSE PANEL [PRESENCE] Report Relea sed Date/Time: Feb 07, 2022 01:[address] [facility] (Q) IN SERUM Reporting Lab: [facility] [address] [facility] [address] Performing Lab: [facility] [address], [address] [facility] [address] LYME BORRELIA Presumpt 02/07 Specimen Type: SERUM [facility] SEROLOGY BURGDORFER cristy Comment: Th e results are supportive evidence for the presence of antibodies and exposure to Borrelia burgdorferi. The LYME SEROLOGY PANEL was performed using the FDA-approved Demetrius YINA Borrelia burdor WSTRN PANEL I AB Positive feri modified t wo-tier test system. This modified methodology uses a second EIA in place of a western immunoblot assay, which the FDA has determined is substantially equivalent to or better than&q MASSCHUSE [PRESENCE] uot; standard two-tier testing using western blot. Supplemental testing with a second EIA meets CDC guidelines for Lyme disease testing. Performance characteristics of the panel were validated at the [facility] IN SERUM [facility]agnostics Laboratory. Results are considered positive only if the initial screening EIA is positive or equivocal, and either or both supplemental EIAs (for IgM and IgG) are positive. Jyoti gnosis of Lyme d isease should not be based solely on laboratory results. Clinical and exposure history must be considered. Positive antibody results reflect prior immunologic exposure, and do not necess arily indicate a ctive infection. False positive results are possible in patients with other spirochetal infections, infectious mononucleosis, and connective tissue disorders. Negative results do not exc lude B. burgdorf angelito infection. Only 10-40% of patients with erythema migrans alone have detectable antibodies. False negative results are possible, if specimens are drawn too soon after infection before an antibody res ponse. Antibody induction may be aborted by early antibiotic therapy. Results in immunosuppressed individuals should be interpreted with caution. If Lyme disease is strongly suspected, b ut antibody was not detected, a second specimen collected about 2-4 weeks after the first should be tested. This test is NOT for use in screening individuals without signs, symptoms or exposure history. Physicians erickson report all cases of Lyme disease to their state and local health departments, if applicable. The [place] State Form URL is: [email or web address]/dru/[email or web address] Ordering Provid er: DIMITRI SCRUGGS Report Released Date/Time: Feb 07, 2022 07:49 AM Reporting Lab: [facility] [address] [facility] [address] Performing Lab: [facility] [address] [facility] [address] LYME BORRELIA POSITIVE 02/07 Specimen Type: SERUM [facility] SEROLOGY BURGD Comment: Th e results are supportive evidence for the presence of antibodies and exposure to Borrelia burgdorferi. The LYME SEROLOGY PANEL was performed using the FDA-approved Demetrius YINA Borrelia burdor [facility] PANEL I IGG+IGM feri modified two-tier test system. This modified methodology uses a second EIA in place of a western immunoblot assay, which the FDA has determined is substantially equivalent to or better than&q [place] uot; standard tw o-tier testing using western blot. Supplemental testing with a second EIA meets CDC guidelines for Lyme disease testing. Performance characteristics of the panel were validated at the [facility] [place] [facility]. Results are considered positive only if the initial screening EIA is positive or equivocal, and either or both supplemental EIAs (for IgM and IgG) are positive. Jyoti IN SERUM gnosis of Lyme disease should not be based solely on laboratory results. Clinical and exposure history must be considered. Positive antibody results reflect prior immunologic exposure, and do not necess BY arily indicate a ctive infection. False positive results are possible in patients with other spirochetal infections, infectious mononucleosis, and connective tissue disorders. Negative results do not exc IMMUNOBLOT lude B. burgd orferi infection. Only 10-40% of patients with erythema migrans alone have detectable antibodies. False negative results are possible, if specimens are drawn too soon after infection before an antibody res ponse. Antibody induction may be aborted by early antibiotic therapy. Results in immunosuppressed individuals should be interpreted with caution. If Lyme disease is strongly suspected, b ut antibody was not detected, a second specimen collected about 2-4 weeks after the first should be tested. This test is NOT for use in screening individuals without signs, symptoms or exposure history. Physicians erickson page report all cases of Lyme disease to their state and local health departments, if applicable. The [place] State Form URL is: http://www.fl.gov/dph/dru/dph/infectious_diseases/pdf_forms_/[email or web address]_[email or web address].pdf Ordering Provid er: DIMITRI SCRUGGS Report Released Date/Time: Feb 07, 2022 07:49 AM Reporting Lab: [facility] [address] [facility] [address] Performing Lab: [facility] [address] [facility] [address] LYME BORRELIA Negative 02/07 Specimen Type: SERUM [facility] SEROLOGY Comment: Th e results are supportive evidence for the presence of antibodies and exposure to Borrelia burgdorferi. The LYME SEROLOGY PANEL was performed using the FDA-approved Demetrius YINA Borrelia burdor [facility] PANEL I AB feri modified tw o-tier test system. This modified methodology uses a second EIA in place of a western immunoblot assay, which the FDA has determined is substantially equivalent to or better than&q [place] [[place]] uot; standard two-tier testing using western blot. Supplemental testing with a second EIA meets CDC guidelines for Lyme disease testing. Performance characteristics of the panel were validated at the [facility] [place] [facility]. Results are considered positive only if the initial screening EIA is positive or equivocal, and either or both supplemental EIAs (for IgM and IgG) are positive. Jyoti gnosis of Lyme d isease should not be based solely on laboratory results. Clinical and exposure history must be considered. Positive antibody results reflect prior immunologic exposure, and do not necess arily indicate a ctive infection. False positive results are possible in patients with other spirochetal infections, infectious mononucleosis, and connective tissue disorders. Negative results do not exc lude B. burgdorf angelito infection. Only 10-40% of patients with erythema migrans alone have detectable antibodies. False negative results are possible, if specimens are drawn too soon after infection before an antibody res ponse. Antibody induction may be aborted by early antibiotic therapy. Results in immunosuppressed individuals should be interpreted with caution. If Lyme disease is strongly suspected, b ut antibody was not detected, a second specimen collected about 2-4 weeks after the first should be tested. This test is NOT for use in screening individuals without signs, symptoms or exposure history. Physicians erickson report all cases of Lyme disease to their state and local health departments, if applicable. The [place] State Form URL is: http://www.[place].gov/dph/dru/dph/infectious_diseases/pdf_forms_/[email or web address]_gspr.pdf Ordering Provid er: DIMITRI SCRUGGS Report Released Date/Time: Feb 07, 2022 07:49 AM Reporting Lab: [facility] [address] [facility] [address] Performing Lab: [facility] [address] [facility] [address] LYME BORRELIA POSITIVE 02/07 Specimen Type: SERUM [facility] SEROLOGY BURGD Comment: Th e results are supportive evidence for the presence of antibodies and exposure to Borrelia burgdorferi. The LYME SEROLOGY PANEL was performed using the FDA-approved Demetrius YINA Borrelia burdor [facility] PANEL I AB feri modified tw o-tier test system. This modified methodology uses a second EIA in place of a western immunoblot assay, which the FDA has determined is substantially equivalent to or better than&q [place] [[place]] uot; standard two-tier testing using western blot. Supplemental testing with a second EIA meets CDC guidelines for Lyme disease testing. Performance characteristics of the panel were validated at the [facility] [place] [facility]. Results are considered positive only if the initial screening EIA is positive or equivocal, and either or both supplemental EIAs (for IgM and IgG) are positive. Jyoti gnosis of Lyme d isease should not be based solely on laboratory results. Clinical and exposure history must be considered. Positive antibody results reflect prior immunologic exposure, and do not necess arily indicate a ctive infection. False positive results are possible in patients with other spirochetal infections, infectious mononucleosis, and connective tissue disorders. Negative results do not exc lude B. burgdorf angelito infection. Only 10-40% of patients with erythema migrans alone have detectable antibodies. False negative results are possible, if specimens are drawn too soon after infection before an antibody res ponse. Antibody induction may be aborted by early antibiotic therapy. Results in immunosuppressed individuals should be interpreted with caution. If Lyme disease is strongly suspected, b ut antibody was not detected, a second specimen collected about 2-4 weeks after the first should be tested. This test is NOT for use in screening individuals without signs, symptoms or exposure history. Physicians erickson page report all cases of Lyme disease to their state and local health departments, if applicable. The [place] State Form URL is: http://www.[place].gov/dph/dru/dph/infectious_diseases/pdf_forms_/au78_srmm.pdf Ordering Provid er: DIMITRI SCRUGGS Report Released Date/Time: Feb 07, 2022 07:49 AM Reporting Lab: [facility] [address] [facility] [address] Performing Lab: [facility] [address] [facility] [facility] [address] FOLATE FOLATE 12.99 5.2 02/07 Specimen Type: S DUSTIN [facility] [MASS/VOLU /2021 No comment en tered. [facility] [place]] IN Ordering Provid er: DIMITRI SCRUGGSALBIN SERUM OR Report Release d Date/Time: Feb 07, 2022 07:[address] [facility] PLASMA Reporting Lab: [facility] [address] [facility] [address] Performing Lab: [facility] [address] [facility] [address] C C REACTIVE 2.32 02/07 Specimen Type : [facility] REACTIVE PROTEIN /2021 Comment: Refer ence range changed on 01/07/11 [facility] reference ranges for ages >17 years: hsCRP in mg/L Risk According to AHA/CDC Guidelines <1.0 Lower relative cardiovascular risk. 1.0-3.0 A WSTRN PROTEIN [MASS/VOLU verage cardio vascular risk. 3.1-10.0 Higher cardiovascular risk. Consider retesting in two weeks to exclude a benign transient elevation in the baseline CRP value secondary to infection or inflammation. [place] ([facility]) [place]] IN >10.0 Persisten t elevation, upon retesting, may be associated with infection and inflammation. [facility] SERUM OR Ordering Provi rasheed: DIMITRI SCRUGGS PLASMA BY Report Releas ed Date/Time: Feb 07, 2022 01:18 PM HIGH Reporting Lab: [facility] SENSITIVIT [address] [place] [phone] Y METHOD Performing Lab : [facility] [address] [facility] [address] [facility] [address] MALARIA/ PARASITE Negative 02/07 Specimen Type : BLOOD [facility] BABESIA IDENTIFIED /2021 Comment: Due to the cyclical shed rates of these parasites, one negative specimen does not rule out the possibility of a parasitic infection. Obtain specimens at 6-hour intervals for 36 hours for a com WSTRN EXAM IN BLOOD prehensive exam ination. Test Performed by [employer] [facility], [employer] Diagn[facility], [address] [place] [address] Ronald Abdul M.D., Ph.D., Director of Laboratories , CLIA [id number] TEST PERFORMED AT: , [facility] Ordering Provi rasheed: DIMITRI SCRUGGS [facility] MICROSCOPY Report Relea sed Date/Time: Feb 07, 2022 01:29 PM Reporting Lab: [facility] [address] [facility] [address] Performing Lab: [facility] [address] [place], [address] [facility] [address] CORA NUCLEAR AB NEG - 140 02/07 Specimen Type : SERUM [facility] [[place]] /2021 No comment e ntered. WSTRN ITER IN SERUM Ordering Provi rasheed: DIMITRI SCRUGGS [place] Report Released Date/Time: Feb 07, 2022 01:29 PM [facility] Reporting Lab: [facility] [place] [facility] [address] [facility] [address] Performing Lab: [facility] [address] [facility] [address] Vital Signs Combined list of inpatient and outpatient Vital Signs from Department of Defense and Veterans Affairs, ranging from 12 months to all on record, depending upon the facility. Vital Sign Value Date Comments Source SYSTOLIC BLOOD PRESSURE 114 02/07/2022 [facility] 12:49:43 [facility] DIASTOLIC BLOOD PRESSURE 70 02/07/2022 [facility] 12[facility]49:[facility] PULSE OXIMETRY 100% 02/07/2022 [facility] 12:49:43 [facility] WEIGHT 176 02/07/2022 [facility] 12[facility]49:[facility] BMI 27kg/m2 02/07/2022 [facility] 12[facility]49:[facility] PAIN 5 02/07/2022 [facility] 12[facility]49:[facility] TEMPERATURE 97.5 02/07/2022 [facility] 12:49:43 [facility] PULSE 81 02/07/2022 [facility] 12[facility]49:[facility] RESPIRATION 16 02/07/2022 [facility] 12[facility]49:43 [facility] SYSTOLIC BLOOD PRESSURE 114 02/04/2022 [facility] 14:43:13 [facility] DIASTOLIC BLOOD PRESSURE 65 02/04/2022 [facility] 14:43:13 [facility] PULSE OXIMETRY 98% 02/04/2022 [facility] 14:43:13 [facility] PULSE 58 02/04/2022 [facility] 14:43:13 [facility] SYSTOLIC BLOOD PRESSURE 120 01/30/2022 [facility] 12:13:59 [facility] DIASTOLIC BLOOD PRESSURE 70 01/30/2022 [facility] 12:13:59 [facility] PULSE OXIMETRY 100% 01/30/2022 [facility] 12:13:59 [facility] WEIGHT 178 01/30/2022 [facility] 12:13:59 [facility] BMI 27kg/m2 01/30/2022 [facility] 12:13:59 [facility] PAIN 7 01/30/2022 [facility] 12:13:59 [facility] TEMPERATURE 102.1 01/30/2022 [facility] 12:13:59 [facility] PULSE 91 01/30/2022 [facility] 12:13:59 [facility] RESPIRATION 20 01/30/2022 [facility] 12:13:59 [facility] SYSTOLIC BLOOD PRESSURE 127 08/13/2021 [facility] 07:53:58 [facility] DIASTOLIC BLOOD PRESSURE 67 08/13/2021 [facility] 07:53:58 [facility] PULSE OXIMETRY 97% 08/13/2021 [facility] 07:53:58 [facility] PAIN 7 08/13/2021 [facility] 07:53:58 [facility] PULSE 65 08/13/2021 [facility] 07:53:58 [facility] SYSTOLIC BLOOD PRESSURE 132 08/07/2021 [facility] 10:58:02 [facility] DIASTOLIC BLOOD PRESSURE 70 08/07/2021 [facility] 10:58:02 [facility] PULSE OXIMETRY 98% 08/07/2021 [facility] 10:58:02 [facility] WEIGHT 191 08/07/2021 [facility] 10[facility]58:02 [facility] BMI 29kg/m2 08/07/2021 [facility] 10:58:02 [facility] PAIN 6 08/07/2021 [facility] 10:58:02 [facility] HEIGHT 68 08/07/2021 [facility] 10:58:02 [facility] TEMPERATURE 98.1 08/07/2021 [facility] 10:58:02 [facility] PULSE 67 08/07/2021 [facility] 10:58:02 [facility] RESPIRATION 20 08/07/2021 [facility] 10[facility]58:02 [facility] Encounters Combined list of: 1) Encounters from Department of Veterans Affairs facilities going back up to the last 18 months. 2) Encounters from the Department of Defense facilities going back up to 280 months. Location Location Encounter Encounter Reason Attending ADM DC Stat us Disposition Source Details Type Number For Provider Date Date Visit OUTPATIENT [id number] YOLETTE, 01/30 Release d w/o [employer] KOSTA [facility] Jonathan locke([facility] Abhijit Audiolo gy) OUTPATIENT [id number] [facility], 01/30 Releas ed w/o Naval DEDE Limitations [facility]al th Clinic Jonathan locke([facility] D Optomet ry Clinic) OUTPATIENT [id number] Jennifer-AMY EDWARDS 02/01 Rel eased w/o Naval STIPATE SIMONA Limitations H ealth D Clinic Jonathan locke([facility] D Recruit Sick Call) OUTPATIENT [id number] [facility], 12/19 Rele ased w/o Camp 010 ТАТЬЯНА /2010 Limitations Norberto e PRE-DEP [facility]( 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 ent [facility]) OUTPATIENT [id number] 06/06 Released w /o Theater Limitations Facilit y OUTPATIENT [id number] 04/04/20 RY, 04/07 Relea sed w/o Camp 11 BRY D Limitations Leadairun e PRE/CORA [facility]( ER Deploy ent Health [facility]- [facility]) OUTPATIENT [id number] TOPHER, 05/05 Release d Camp MARJAN DAI with Dionne [facility]( 07/25 BAS) TELE [id number] [facility] TBI RY, 05/07 Camp CONSULT Referra BRY Dionne l From [employer] May Not Medical Booked Center( [facility] ent Health Center- [facility]) OUTPATIENT [id number] BLANCO DONALDSON, 05/13 Relea sed w/o Camp RENY Limitations Dionnemaurizio GAUTAM [facility]IENT [id number] rehab PATRICIA, 05/15 Released w /o Camp FABIOLA R Limitations [facility]( [facility] OUTPATIENT [id number] rehab PATRICIA, 05/19 Released w /o Camp FABIOLA R Limitations [facility]( [facility] OUTPATIENT [id number] rehab PATRICIA, 05/21 Released w /o Camp FABIOLA R Limitations [facility]( [facility] OUTPATIENT [id number] rehab PATRICIA, 05/26 Released w /o Camp FABIOLA Limitations [facility]( [facility] OUTPATIENT [id number] rehab PARTICIA, 05/27 Released w /o Camp FABIOLA R Limitations [facility]( [facility] OUTPATIENT [id number] rehab PATRICIA, 05/28 Released w /o Camp FABIOLA R Limitations [facility]( [facility] OUTPATIENT [id number] sleep BUENVIAADAIR, 06/09 Relea sed w/o Camp disturb LISA Limitations Maryjo lal [facility]( Sep Div Surg Office) OUTPATIENT [id number] murray chi, 06/17 Release d Camp RENY with Dionne GAUTAM Work/Duty [facility] OUTPATIENT [id number] Light WILLIAM, 06/18 Relea sed Camp Duty, LISA with Dionne Back Work/Duty [employer] pain [facility]( Sep Div Surg Office) OUTPATIENT [id number] trt PATRICIA, 06/24 Released w /o Camp FABIOLA R Limitations [facility]( [facility] OUTPATIENT [id number] trt PATRICIA, 06/26 Released w /o Camp FABIOLA R Limitations [facility]( [facility]) OUTPATIENT [id number] trt PATRICIA, 06/27 Released w /o Camp FABIOLA R Limitations [facility]( [facility] OUTPATIENT [id number] trt PATRICIA, 06/30 Released w /o Camp FABIOLA R Limitations [facility]( [facility] OUTPATIENT [id number] trt PATRICIA, 07/02 Released w /o Camp FABIOLA R Limitations [facility]( [facility] OUTPATIENT [id number] trt PATRICIA, 07/04 Released w /o Camp FABIOLA R Limitations [facility]( [facility] OUTPATIENT [id number] trt PATRICIA, 07/07 Released w /o Camp FABIOLA R Limitations [facility]( [facility] OUTPATIENT [id number] trt PATRICIA, 07/09 Released w /o Camp FABIOLA R Limitations [facility]( [facility] OUTPATIENT [id number] trt PATRICIA, 07/11 Released w /o Camp FABIOLA R Limitations [facility]( [facility] OUTPATIENT [id number] PATRICIA, 08/28 Released w /o Camp FABIOLA R Limitations [facility]( [facility] OUTPATIENT [id number] trt ANIKA, 08/28 Release d [place] RENY with Dionne GAUTAM Work/Duty [facility]( [facility] OUTPATIENT [id number] trt PATRICIA, 09/02 Released w /o Camp FABIOLA R Limitations [facility]( [facility] OUTPATIENT [id number] trt PATRICIA, 09/16 Released w /o Camp FABIOLA R Limitations [facility]( [facility]) OUTPATIENT [id number] PATRICIA, 09/17 Released w /o Camp FABIOLA R Limitations [facility]( [facility]) OUTPATIENT [id number] TOPHER, 09/17 Release d w/o Camp MARJAN DAI Limitations [facility]( 6th ANAY) OUTPATIENT [id number] TOPHER, 09/18 Release d w/o Camp MARJAN DAI Limitations [facility]( 6th ANAY) OUTPATIENT [id number] trt PATRICIA, 09/21 Released w /o Camp FABIOLA R Limitations [facility]( [facility]) OUTPATIENT [id number] trt PATRICIA, 09/24 Released w /o Camp FABIOLA R Limitations [facility]( [facility]) OUTPATIENT [id number] [place], 10/16 Release d w/o Camp MARJAN SUHAS Limitations [facility]( 6th ANAY) OUTPATIENT [id number] trt PATRICIA, 10/22 Released w /o Camp FABIOLA R Limitations [facility]( [facility]) OUTPATIENT [id number] trt PATRICIA, 11/17 Released w /o Camp FABIOLA R Limitations [facility]( [facility]) OUTPATIENT [id number] trt PATRICIA, 11/19 Released w /o Camp FABIOLA R Limitations [facility]( [facility]) OUTPATIENT [id number] jason DONALDSON, 11/25 Releas ed w/o Camp up Limitations [facility]( [facility] OUTPATIENT [id number] trt PATRICIA, 11/26 Released w /o Camp FABIOLA R Limitations [facility]( [facility]) TELE [id number] [place], 12/16 Camp CONSULT MARJAN SUHAS [facility]) OUTPATIENT [id number] jason DONALDSON, 01/05 Releas ed w/o Camp up Limitations [facility]( [facility]) OUTPATIENT [id number] trt PATRICIA, 02/04 Released w /o Camp FABIOLA R 2012 Limitations [facility]( [facility]) OUTPATIENT [id number] lamaze1 MIKHAIL, 02/17 Released w/o Camp DONNA R Limitations [facility]( [facility]) OUTPATIENT [id number] lamaze2 MIKHAIL, 02/24 Released w/o Camp DONNA R Limitations [facility]( [facility]) OUTPATIENT [id number] TEE 04/19 Relea sed w/o Camp JENNY [facility] -B[facility] OUTPATIENT [id number] Gladis HIGUERA, 05/14 Released w/o Camp Entered Limitations Norberto e [facility]: [facility]( Apr [facility] 2012 [facility]) 0905 ------- ------- ------- ------- -- HTN OUTPATIENT [id number] Gladis HIGUERA, 05/14 Released w/o Camp Entered Limitations Norberto e by: [facility]( PHER Apr [facility]) 2011 0914 ------- ------- ------- ------- -- 5 day BP Check OUTPATIENT [id number] HTN KOTA, 06/02 Relea sed w/o Camp SPENCER M Limitations [facility]( Optomet ry Hadnot [address]) OUTPATIENT [id number] Gladis HIGUERA 06/14 Released w/o [place] Entered Limitations Norberto abdi by: [facility] Darlyn [facility]( D May [facility]) 2011 0925 ------- ------- ------- ------- -- B/P FOLLOW UP WELL BLOOD TEST RESULT OUTPATIENT [id number] Gladis HIGUERA 06/17 Released w/o [place] Entered Limitations Norberto e by: [facility] VIDYA [facility]( May 25 2012 [facility]) 1307 ------- ------- ------- ------- -- F/U for BP OUTPATIENT [id number] SANDY 07/08 Releas ed w/o Camp TOD JR Limitations [facility]( [facility] -B65) OUTPATIENT [id number] SANDY 07/08 Releas ed w/o Camp TOD JR Limitations [facility]( [facility] -B65) OUTPATIENT [id number] BULLOCK, 07/27 Released w/o Camp Limitations [facility] -B[facility] OUTPATIENT [id number] DAVIDA, 08/17 Released w/o Camp Limitations Dionne [facility]( 6th ANAY) OUTPATIENT [id number] Gladis HIGUERA, 09/29 Released w/o Camp Entered Limitations Chavezun e by: [facility] DAVIDA Graham Dutton( R 13 Sep [facility]) 2012 1303 ------- ------- ------- ------- -- Medicat ion Refill OUTPATIENT [id number] Notes DAVIDA, 10/04 Released w/o Camp Entered Limitations Norberto e by: [facility] Noble DU [facility]( I 18 Sep [facility]) 2012 1320 ------- ------- ------- ------- -- Lab F/U PSYCH [id number] Diagnos SHANAE,Bernardo 10/16 [facility] DI[facility]IC [id number] is: USANN CN TRL EVALUATION ICD-10- ELISABETH [facility] CM [place] G47.00 SETS Insomni HCS a, unspeci fied
with Provide r Comment s: Insomni a, unspeci fied Outpatient [id number] MINI SOSA 10/22 [facility] Encounter [id number] [facility] [place] [facility] SELF CARE 31160-6.63 Diagnos Zonia MOSS 10/25 [facility] MNGMENT [id number] is: SULAIAMN CNTRL TRAINING ICD-10- WSTRN CM [place] M25.511 SETS Pain in HCS right shoulde r
w ith Provide r Comment s: Pain in right Shoulde r Outpatient [id number] 10/25 [facility] Encounter [id number] [facility] [place] [facility] [id number] 10/26 [facility] Encounter [id number] [facility] [place] [facility] [id number] 10/26 [facility] Encounter [id number] [facility] [place] [address]-6.63 Diagnos [facility] 10/29 [place] 45 MINUTES [id number] is: CNTR L ICD-10- WSTRN CM [place] F43.10 SETS Post-tr HCS aumatic stress disorde r, unspeci fied
with Provide r Comment s: Posttra umatic stress disorde r (SCT [id number] 3) Outpatient Diagnos HOWARD STUART 10/29 [place] Encounter [id number] is: CNT RL ICD-10- WSTRN CM [place] F33.1 SETS Major HCS depress cristy disorde r, recurre nt, moderat e
w ith Provide r Comment s: Moderat brian severe recurre nt major depress ion (SCT [id number] 06) [place] [address]-1.63 Diagnos MER,[facility] 11/05 [place] 45 MINUTES 1.15933139 is: CNTR L ICD-10- W[facility]N CM [place] F43.10 SETS Post-tr HCS aumatic stress disorde r, unspeci fied
with Provide r Comment s: Posttra umatic stress disorde r (SCT [id number] 3) Outpatient 11/08 [facility] Encounter [id number] /2021 [facility] Outpatient 02706-6.11/08 [place] Encounter [id number] /2021 [facility] Outpatient 80534-3.63 11/08 [place] Encounter [id number] [facility] Outpatient Diagnos NARCISOHOWARD 11/12 [place] Encounter [id number] is: CNT RL ICD-10- WSTRN CM [place] F33.1 SETS Major HCS depress cristy disorde r, recurre nt, moderat e
w ith Provide r Comment s: Moderat brian severe recurre nt major depress ion ([facility] [id number] 06) PSYCH 64607-9 Diagnos LEONARDAJESSA,S 11/13 [place] DIAGNOSTIC 1.26544164 is: [place] CN TRL EVALUATION ICD-10- ELISABETH [facility] CM [place] F51.01 SETS Primary HCS insomni a
w ith Provide r Comment s: [place] 58465-6 Diagnos AJAYM 11/15 V A PHONE CALL 1.00261306 is: SULAIMAN CNTR L 5-10 MIN ICD-10- WSTRN CM [place] M25.519 SETS Pain in HCS unspeci fied shoulde r
w ith Provide r Comment s: Pain in unspeci fied Shoulde r Outpatient 90773-4.63 11/19 [place] Encounter [id number] [facility] [place] [address]-163 Diagnos MER,[facility] 11/26 [place] 30 MINUTES 1.61817941 is: CNTR L ICD-10- [facility] CM [place] F43.10 SETS Post-tr HCS aumatic stress disorde r, unspeci fied
with Provide r Comment s: Posttra umatic stress disorde r ([facility] [id number] 3) Outpatient 87793-5.63 11/26 [place] Encounter [id number] [facility] Outpatient 06224-0.63 12/03 [facility] Encounter [id number] /2021 [facility] Outpatient 08494-4.63 12/03 [place] Encounter [id number] [facility] [place] [address]-3.63 Diagnos MER,[facility] 12/10 [place] 45 MINUTES 1.06858927 is: CNTR L ICD-10- WSTRN CM [place] F43.10 SETS Post-tr HCS aumatic stress disorde r, unspeci fied
with Provide r Comment s: Posttra umatic stress disorde r (SCT [id number] 3) Outpatient Diagnos NARCISOJA 12/13 [place] Encounter [id number] is: CQUELYN CNT RL ICD-10- WSTR[facility] CM [place] F33.1 SETS Major HCS depress cristy disorde r, recurre nt, moderat e
w ith Provide r Comment s: Moderat brian severe recurre nt major depress ion (SCT [id number] 06) PSYTX W PT Diagnos MER,[facility] 12/24 [place] 45 MINUTES 1.58045966 is: IS CNTR L ICD-10- [facility] CM [place] F43.10 SETS Post-tr HCS aumatic stress disorde r, unspeci fied
with Provide r Comment s: Posttra umatic stress disorde r ([facility] [id number] 3) Outpatient 73445-363 12/31 [place] Encounter [id number] /2021 [facility] [place] HC PRO Diagnos MER,[facility] 01/02 V A PHONE CALL 1.19527724 is: IS CNTR L 5-10 MIN ICD-10- W[facility]N CM [place] F43.10 SETS Post-tr HCS aumatic stress disorde r, unspeci fied
with Provide r Comment s: Posttra umatic stress disorde r ([facility] [id number] 3) HC PRO Diagnos LEXY,YOL 01/11 V A PHONE CALL 1.36607860 is: SIMRAN CNTR L 5-10 MIN ICD-10- W[facility]N CM [place] Z71.89 SETS Other HCS specifi ed legal counsel ing<br/ >with Provide r Comment s: Other specifi ed legal counsel ing PSYTX W PT Diagnos MER,[facility] 01/14 [place] 45 MINUTES 1.12168198 is: IS CNTR L ICD-10- W[facility]N CM [place] F43.10 SETS Post-tr HCS aumatic stress disorde r, unspeci fied
with Provide r Comment s: Posttra umatic stress disorde r ([facility] [id number] 3) Outpatient 01/24 [place] Encounter [id number] /2021 [facility] HC PRO Diagnos MER,[facility] 01/25 V A PHONE CALL 1.65834070 is: IS CNTR L 5-10 MIN ICD-10- WSTRN CM [place] F43.10 SETS Post-tr HCS aumatic stress disorde r, unspeci fied
with Provide r Comment s: Posttra umatic stress disorde r (SCT [id number] 3) Outpatient 02/04 [place] Encounter [id number] /2021 [facility] PSYTX W PT Diagnos MER,[facility] 02/05 [place] 45 MINUTES 1.66071674 is: IS CNTR L ICD-10- WSTRN CM [place] F43.10 SETS Post-tr HCS aumatic stress disorde r, unspeci fied
with Provide r Comment s: Posttra umatic stress disorde r (SCT [id number] 3) Outpatient 02/18 [place] Encounter [id number] /2021 [facility] PSYTX W PT Diagnos MER,[facility] 02/19 [place] 45 MINUTES 1.26304390 is: CNTR L ICD-10- W[facility]N CM [place] F43.10 SETS Post-tr HCS aumatic stress disorde r, unspeci fied
with Provide r Comment s: Posttra umatic stress disorde r (SCT [id number] 3) Outpatient Diagnos NARCISO,JA 02/21 [place] Encounter [id number] is: CQUEL CNT RL ICD-10- [facility] CM [place] F43.10 SETS Post-tr HCS aumatic stress disorde r, unspeci fied
with Provide r Comment s: Posttra umatic stress disorde r (SCT [id number] 3) PSYTX W PT Diagnos MER,[facility] 03/05 [place] 45 MINUTES 1.60063983 is: ISTIE CNTR L ICD-10- [facility] CM [place] F43.10 SETS Post-tr HCS aumatic stress disorde r, unspeci fied
with Provide r Comment s: Posttra umatic stress disorde r ([facility] [id number] 3) Outpatient 03/15 [place] Encounter [id number] [facility] Outpatient 03/18 [place] Encounter [id number] [facility] PSYTX W PT Diagnos MER,[facility] 03/26 [place] 30 MINUTES 1.51970999 is: ISTIE CNTR L ICD-10- [facility] CM [place] F43.10 SETS Post-tr HCS aumatic stress disorde r, unspeci fied
with Provide r Comment s: Posttra umatic stress disorde r ([facility] [id number] 3) HC PRO Diagnos SHANT,MARAH 03/29 V A PHONE CALL 1.21178726 is: VICKY R CNT RL 21-30 MIN ICD-10- W[facility]N CM [place] Z71.89 SETS Other HCS specifi ed legal counsel ing<br/ >with Provide r Comment s: Other specifi ed legal counsel ing HC PRO Diagnos TODD BESS 04/04 V A PHONE CALL 1.54677588 is: LLY CNTR L 5-10 MIN ICD-10- [facility]N CM [place] Z71.89 SETS Other HCS specifi ed legal counsel ing<br/ >with Provide r Comment s: Other specifi ed legal counsel ing HC PRO Diagnos JENNIFFER HOLT 04/08 V A PHONE CALL 1.86189479 is: NDA J /2020 CNTR L 5-10 MIN ICD-10- W[facility]N CM [place] Z71.89 SETS Other HCS specifi ed legal counsel ing<br/ >with Provide r Comment s: Other specifi ed legal counsel ing OFFICE O/P Diagnos ALO,VERA 04/08 [place] EST 1.84004394 is: HLEEN CNTRL MINIMAL ICD-10- ANDREA [facility]N PROB CM R52 [place] Pain, SETS unspeci HCS fied
with Provide r Comment s: Pain, unspeci fied Outpatient 16772-6.63 04/08 [place] Encounter [id number] /2021 [facility] OFFICE O/P 73881-9.63 Diagnos AGUILAR,KEO 04/08 [place] EST LOW 1.13405360 is: YUNI CHAVEZ CNTR L 20-29 MIN ICD-10- [facility] CM [place] G56.01 SETS Carpal HCS tunnel syndrom e, right upper limb
with Provide r Comment s: Carpal Tunnel Syndrom e, [place] [address]-5.63 Diagnos MER,[facility] 04/09 [place] 30 MINUTES 1.25402561 is: ISTIE CNTR L ICD-10- [facility] CM [place] F43.10 SETS Post-tr HCS aumatic stress disorde r, unspeci fied
with Provide r Comment s: Posttra umatic stress disorde r (SCT [id number] 3) Outpatient 50498-5.63 04/17 [place] Encounter [id number] [facility] Outpatient 07044-2.63 04/18 [place] Encounter [id number] [facility] Outpatient 83832-2.63 04/22 [place] Encounter [id number] [facility] Outpatient 89417-8.63 04/23 [place] Encounter [id number] [facility] OT EVAL 45010-0.63 Diagnos MACHHARJEET,ROSALINDA 04/30 [place] LOW 1.68289658 is: LIE E CNTRL COMPLEX 30 ICD-10- WSTRN MIN CM [place] G56.00 SETS Carpal HCS tunnel syndrom e, unspeci fied upper limb
with Provide r Comment s: Carpal Tunnel Syndrom e, [place] [address]-3 Diagnos MER,[facility] 04/30 [place] 30 MINUTES 1.53985032 is: ISTIE CNTR L ICD-10- W[facility]N CM [place] F43.10 SETS Post-tr HCS aumatic stress disorde r, unspeci fied
with Provide r Comment s: Posttra umatic stress disorde r (SCT [id number] 3) [facility] [place] SARSCOV2 1.89431830 is: TAE CNTR L 100MCG/0.5 ICD-10- WSTRN ML1ST CM Z23 [place] Encount SETS er for HCS immuniz ation<b r/>with Provide r Comment s: Encount er for Immuniz ation Outpatient 75992-805/03 [place] Encounter [id number] [facility] [place] Outpatient Diagnos NARCISO,JA 05/23 [place] Encounter [id number] is: CQUELYN CNT RL ICD-10- WSTRN CM [place] F43.10 SETS Post-tr HCS aumatic stress disorde r, unspeci fied
with Provide r Comment s: Posttra umatic stress disorde r (SCT [id number] 3) ADM Diagnos [facility], 05/31 [place] SARSCOV2 1.94154644 is: CNTR L 100MCG/0.5 ICD-10- WSTRN ML2ND CM Z23 [place] Encount SETS er for HCS immuniz ation<b r/>with Provide r Comment s: Encount er for Immuniz ation PSYTX W PT Diagnos MER,[facility] 06/04 [place] 45 MINUTES 1.65445145 is: ISTIE CNTR L ICD-10- WSTRN CM [place] F43.10 SETS Post-tr HCS aumatic stress disorde r, unspeci fied
with Provide r Comment s: Posttra umatic stress disorde r ([facility] [id number] 3) Outpatient 06/16 [place] Encounter [id number] /2021 [facility] Outpatient 89873-406/18 [place] Encounter [id number] /2021 [facility] [place] [address]-7.63 Diagnos MER,[facility] 06/18 [place] 30 MINUTES 1.32059081 is: ISTIE CNTR L ICD-10- WSTRN CM [place] F43.10 SETS Post-tr HCS aumatic stress disorde r, unspeci fied
with Provide r Comment s: Posttra umatic stress disorde r ([facility] [id number] 3) Outpatient 06/19 [place] Encounter [id number] /2021 [facility] [place] [address]-5 Diagnos MER,[facility] 07/02 [place] 45 MINUTES 1.67523005 is: ISTIE CNTR L ICD-10- W[facility]N CM [place] F43.10 SETS Post-tr HCS aumatic stress disorde r, unspeci fied
with Provide r Comment s: Posttra umatic stress disorde r ([facility] [id number] 3) HC PRO Diagnos MER,CHR 07/03 V A PHONE CALL 1.11529801 is: IS CNTR L 11-20 MIN ICD-10- WSTRN CM [place] F43.10 SETS Post-tr HCS aumatic stress disorde r, unspeci fied
with Provide r Comment s: Posttra umatic stress disorde r ([facility] [id number] 3) Outpatient 07/03 [place] Encounter [id number] /2021 [facility] [place] Outpatient Diagnos NARCISO,JA 07/04 [place] Encounter [id number] is: CQUELYN CNT RL ICD-10- WSTRN CM [place] F43.10 SETS Post-tr HCS aumatic stress disorde r, unspeci fied
with Provide r Comment s: Posttra umatic stress disorde r ([facility] [id number] 3) Outpatient 42778-007/09 [place] Encounter [id number] /2021 [facility] [place] DETERMINE Diagnos OSPITA, 07/11 [place] REFRACTIVE 1.49449002 is: SUNDEEP Sanchez CNTRL STATE ICD-10- WSTRN CM [place] H40.053 SETS Ocular HCS hyperte nsion, bilater al
with Provide r Comment s: Ocular Hyperte nsion, Bilater al HC PRO Diagnos MER,[facility] 07/16 V A PHONE CALL 1.26463613 is: IS CNTR L 11-20 MIN ICD-10- WSTRN CM [place] F43.10 SETS Post-tr HCS aumatic stress disorde r, unspeci fied
with Provide r Comment s: Posttra umatic stress disorde r ([facility] [id number] 3) Outpatient Diagnos HOWARD STUART 07/18 [place] Encounter [id number] is: CQUELYN CNT RL ICD-10- WSTRN CM [place] F43.10 SETS Post-tr HCS aumatic stress disorde r, unspeci fied
with Provide r Comment s: Posttra umatic stress disorde r ([facility] [id number] 3) Outpatient 11758-507/24 [place] Encounter [id number] /2022 [facility] [place] PSYTX W PT Diagnos BI GARCIA 07/25 [place] W E/M 30 1.15777938 is: T O CNTRL MIN ICD-10- WSTRN CM [place] F43.10 SETS Post-tr HCS aumatic stress disorde r, unspeci fied
with Provide r Comment s: Posttra umatic stress disorde r (SCT [id number] 3) Outpatient Diagnos HOWARD STUART 07/30 [place] Encounter [id number] is: CQUELYN CNT RL ICD-10- WSTRN CM [place] F43.10 SETS Post-tr HCS aumatic stress disorde r, unspeci fied
with Provide r Comment s: Posttra umatic stress disorde r (SCT [id number] 3) HC PRO 33546-4.63 Diagnos MER,CHR 08/01 V A PHONE CALL 1.92285256 is: ISTIE CNTR L 5-10 MIN ICD-10- WSTRN CM [place] F43.10 SETS Post-tr HCS aumatic stress disorde r, unspeci fied
with Provide r Comment s: Posttra umatic stress disorde r (SCT [id number] 3) OFFICE O/P 98263-3.63 Diagnos SHEBA,W 08/07 [place] EST MOD 1.81669513 is: JOE J CNTR L 30-39 MIN ICD-10- WSTRN CM [place] M25.519 SETS Pain in HCS unspeci fied shoulde r
w ith Provide r Comment s: Bilater al shoulde r joint pain ([facility] [id number]) INTRAORAL 19024-1.63 Diagnos STEVEN DE LEON 08/13 [place] PERIAPICAL 1.72639453 is: AM CNTR L FIRST ICD-10- WSTRN CM [place] K02.62 SETS Dental HCS caries on smooth surface penetra ting into dentin< br/>wit h Provide r Comment s: Dental caries on smooth surface penetra ting into dentin HC PRO 62746-0.63 Diagnos TODD BESS 08/16 V A PHONE CALL 1.51996582 is: LLY CNTR L 5-10 MIN ICD-10- WSTRN CM [place] Z71.89 SETS Other HCS specifi ed legal counsel ing<br/ >with Provide r Comment s: Other specifi ed legal counsel ing Outpatient 68044-2.63 Diagnos HOWARD STUART 08/19 [place] Encounter [id number] is: CQUELYN CNT RL ICD-10- WSTRN CM [place] F43.10 SETS Post-tr HCS aumatic stress disorde r, unspeci fied
with Provide r Comment s: Posttra umatic stress disorde r (SCT [id number] 3) Outpatient 05242-9.63 08/28 [place] Encounter [id number] /2022 [facility] [place] [facility] VISUAL 18519-8.63 Diagnos OSHIMAURA, 08/28 V A FIELD 1.81295987 is: SUNDEEP Sanchez CNTRL EXAMINATIO ICD-10- WSTRN N(S) CM [place] H40.013 SETS Open HCS angle with borderl ine finding s, low risk, bilater al
with Provide r Comment s: [place] a Suspect ,Low Risk,Bi lateral EYE EXAM 11461-0.63 [facility] [place] ESTABLISH 1.21595621 is: SUNDEEP Sanchez C NTRL PATIENT ICD-10- WSTRN CM [place] H40.013 SETS Open HCS angle with borderl ine finding s, low risk, bilater al
with Provide r Comment s: Open Angle with Borderl ine Finding s, low Risk, Bilater al CMPTR 10132-2.63 Diagnos OSPITA, 08/28 [place] OPHTH IMG 1.01663356 is: SUNDEEP Sanchez C NTRL OPTIC ICD-10- WSTRN NERVE CM [place] H40.013 SETS Open HCS angle with borderl ine finding s, low risk, bilater al
with Provide r Comment s: [place] a Suspect ,Low [place] [address]-6.63 Diagnos MER,[facility] 09/03 [place] 45 MINUTES 1.49325663 is: ISTIE CNTR L ICD-10- WSTRN CM [place] F43.10 SETS Post-tr HCS aumatic stress disorde r, unspeci fied
with Provide r Comment s: Posttra umatic stress disorde r ([facility] [id number] 3) Outpatient 41278-4.63 09/04 [place] Encounter [id number] [facility] [place] [facility] HC PRO 06022-4.63 Diagnos MARAH BRAN 09/04 V A PHONE CALL 1.11595769 is: VICKY R /2021 CNT RL 5-10 MIN ICD-10- WSTRN CM [place] Z71.89 SETS Other HCS specifi ed legal counsel ing<br/ >with Provide r Comment s: Other specifi ed legal counsel ing Outpatient 39737-1.63 09/06 [place] Encounter 1. [facility] [place] [facility] Outpatient 64287-8.63 09/06 [place] Encounter 1. [facility] [place] Outpatient 07979-6.63 Diagnos HOWARD STUART 09/16 [place] Encounter [id number] is: CQUELYN CNT RL ICD-10- WSTRN CM [place] F43.10 SETS Post-tr HCS aumatic stress disorde r, unspeci fied
with Provide r Comment s: Posttra umatic stress disorde r (SCT [id number] 3) PSYTX W PT Diagnos MER,[facility] 09/17 [place] 45 MINUTES 1.87115926 is: ISTIE CNTR L ICD-10- WSTRN CM [place] F43.10 SETS Post-tr HCS aumatic stress disorde r, unspeci fied
with Provide r Comment s: Posttra umatic stress disorde r (SCT [id number] 3) CASE Diagnos JOSE BOOTHE 09/24 [place] MGMT-ORAL 1.07150620 is: /2021 CNTRL HEALTH LIT ICD-10- WSTRN CM [place] K08.531 SETS Fractur HCS ed dental restora tive materia l with loss of materia l
w ith Provide r Comment s: Fractur ed dental restora tive materia l with loss of materia l PSYTX W PT Diagnos MER,[facility] 09/25 [place] 30 MINUTES 1.90952928 is: ISTIE CNTR L ICD-10- WSTRN CM [place] F43.10 SETS Post-tr HCS aumatic stress disorde r, unspeci fied
with Provide r Comment s: Posttra umatic stress disorde r (SCT [id number] 3) [facility] Diagn[facility] RILEY VALERA 09/25 [place] FI[facility] DIRECTOR 1.86350952 is: MARKUS CNTRL ASSESSMENT ICD-10- WSTRN CM [place] Z71.81 SETS Spiritu HCS al or religio us legal counsel ing<br/ >with Provide r Comment s: Spiritu al [place] [address] Diagnos MORAIMARILEY 09/26 [place] FIELD SERVICES DIRECTOR 1.15692957 is: MARKUS CNTRL DIRECTOR PHARMACEUTICAL ICD-10- WSTRN INDIVIDU CM [place] Z71.81 SETS Spiritu HCS al or religio us legal counsel ing<br/ >with Provide r Comment s: Spiritu al or Religio us Floor Covering Printer Assistant ing Outpatient 23731-763 09/26 [place] Encounter [id number] /2022 [facility] [place] Outpatient 00673-4.63 09/30 [place] Encounter [id number] /2022 [facility] [place] [address]-7 Diagnos DAVID JOSE 10/01 [place] 45 MINUTES 1.91827740 is: CNTR L ICD-10- WSTRN CM [place] F43.10 SETS Post-tr HCS aumatic stress disorde r, unspeci fied
with Provide r Comment s: Posttra umatic stress disorde r (SCT [id number] 3) Outpatient 81199-2.63 10/02 [place] Encounter 1. [facility] [place] GROUP 16886-3.63 Diagnos DAVID JOSE 10/02 [place] PSYCHOTHER 1.02924295 is: A CNTR L APY ICD-10- WSTRN CM [place] F43.10 SETS Post-tr HCS aumatic stress disorde r, unspeci fied
with Provide r Comment s: Post-tr aumatic stress disorde r, unspeci fied (ICD-10 -CM F43.10) [place] [address]-1.63 Diagnos MER,CHR 10/04 [place] 45 MINUTES 1.92879001 is: IS CNTR L ICD-10- WSTRN CM [place] F43.10 SETS Post-tr HCS aumatic stress disorde r, unspeci fied
with Provide r Comment s: Posttra umatic stress disorde r ([facility] [id number] 3) [place] [address]-7. Diagnos RILEY VALERA 10/07 [place] FIELD [facility] DIRECTOR 1.93626160 is: MARKUS CNTRL DIRECTOR PHARMACEUTICAL ICD-10- WSTRN INDIVIDU CM [place] Z71.81 SETS Spiritu HCS al or religio us legal counsel ing<br/ >with Provide r Comment s: Spiritu al or Religio us Floor Covering Printer Assistant ing Outpatient Diagnos NARCISOJA 10/07 [place] Encounter [id number] is: CQUELYN CNT RL ICD-10- WSTRN CM [place] F33.1 SETS Major HCS depress cristy disorde r, recurre nt, moderat e
w ith Provide r Comment s: Moderat brian severe recurre nt major depress ion ([facility] [id number] 06) PSYTX W PT Diagnos MER,CHR 10/08 [place] 45 MINUTES 1.76463421 is: IS CNTR L ICD-10- WSTRN CM [place] F43.10 SETS Post-tr HCS aumatic stress disorde r, unspeci fied
with Provide r Comment s: Posttra umatic stress disorde r ([facility] [id number] 3) GROUP Diagnos DAVID JOSE 10/09 [place] PSYCHOTHER 1.22470271 is: A CNTR L APY ICD-10- WSTRN CM [place] F43.10 SETS Post-tr HCS aumatic stress disorde r, unspeci fied
with Provide r Comment s: Post-tr aumatic stress disorde r, unspeci fied (ICD-10 -CM F43.10) INTRAORAL . Diagnos ARAMIS, 10/15 [place] PERIAPICAL 1.86769911 is: VINCENT CN TRL FIRST ICD-10- WSTRN CM [place] K08.9 SETS Disorde HCS r of teeth and support ing structu res, unspeci fied
with Provide r Comment s: Disorde r of teeth and support ing structu res, unspeci fied GROUP 08512-1.63 Diagnos DAVID JOSE 10/16 [place] PSYCHOTHER 1.24023770 is: A CNTR L APY ICD-10- WSTRN CM [place] F43.10 SETS Post-tr HCS aumatic stress disorde r, unspeci fied
with Provide r Comment s: Post-tr aumatic stress disorde r, unspeci fied (ICD-10 -CM F43.10) [place] [address]-9 Diagnos MER,CHR 10/18 [place] 45 MINUTES 1.14797525 is: IS CNTR L ICD-10- WSTRN CM [place] F43.10 SETS Post-tr HCS aumatic stress disorde r, unspeci fied
with Provide r Comment s: Posttra umatic stress disorde r (SCT [id number] 3) Outpatient 44483-310/23 [place] Encounter [id number] /2022 [facility] [place] [facility] 11629-2 Diagnos DAVID JOSE 10/30 [place] PSYCHOTHER 1.11304423 is: CNTR L APY ICD-10- WSTRN CM [place] F43.10 SETS Post-tr HCS aumatic stress disorde r, unspeci fied
with Provide r Comment s: Post-tr aumatic stress disorde r, unspeci fied (ICD-10 -CM F43.10) Outpatient 92090-3.63 11/06 [place] Encounter [id number] [facility] [place] [facility] Outpatient Diagnos NARCISO,JA 11/12 [place] Encounter [id number] is: CQUEL CNT RL ICD-10- WSTRN CM [place] F33.1 SETS Major HCS depress cristy disorde r, recurre nt, moderat e
w ith Provide r Comment s: Moderat brian severe recurre nt major depress ion (SCT [id number] 06) Outpatient 63234-6.63 11/12 [place] Encounter [id number] [facility] [place] Outpatient 17387-563 11/13 [place] Encounter [id number] [facility] [place] Outpatient 72177-7.63 12/06 [place] Encounter [id number] [facility] [place] [address]-5 Diagnos MER,CHR 12/12 [place] 30 MINUTES [id number] is: ISTIE CNTR L ICD-10- WSTRN CM [place] F43.10 SETS Post-tr HCS aumatic stress disorde r, unspeci fied
with Provide r Comment s: Posttra umatic stress disorde r (SCT [id number] 3) Outpatient Diagnos NARCISO,JA 12/19 [place] Encounter [id number] is: CQUELYN CNT RL ICD-10- [facility] CM [place] F43.10 [facility] aumatic stress disorde r, unspeci fied
with Provide r Comment s: Posttra umatic stress disorde r (SCT [id number] 3) [place] [address]-3 Diagnos MER,CHR 12/20 [facility] 30 MINUTES [id number] is: IS CNTR L ICD-10- [facility] [place] F43.10 [facility] aumatic stress disorde r, unspeci fied
with Provide r Comment s: Posttra umatic stress disorde r (SCT [id number] 3) HC PRO 38017-3.63 Diagnos MER,CHR 12/26 [facility] A PHONE CALL [id number] is: IS CNTR L 5-10 MIN ICD-10- [facility] [place] F43.10 [facility] aumatic stress disorde r, unspeci fied
with Provide r Comment s: Posttra umatic stress disorde r (SCT [id number] 3) [place] [address]-1 Diagnos MER,CHR 01/02 [facility] 30 MINUTES [id number] is: IS CNTR L ICD-10- [facility] [place] F43.10 [facility] aumatic stress disorde r, unspeci fied
with Provide r Comment s: Posttra umatic stress disorde r ([facility] [id number] 3) Outpatient [id number] MER,CHR 01/07 [place] Encounter [id number] [place] [facility] [place] [facility] [place] 44308-1 Diagnos MER,CHR 01/09 [place] A PHONE CALL [id number] is: IS CNTR L 5-10 MIN ICD-10- [facility] CM [place] F43.10 [facility] aumatic stress disorde r, unspeci fied
with Provide r Comment s: Posttra umatic stress disorde r ([facility] [id number] 3) Outpatient 58939-4.63 Diagnos NARCISOJA 01/23 [facility] Encounter [id number] is: CQUELYN CNT RL ICD-10- [facility] CM [place] F43.10 [facility] aumatic stress disorde r, unspeci fied
with Provide r Comment s: Posttra umatic stress disorde r ([facility] [id number] 3) Outpatient 52608-4.63 01/29 [facility] En[facility] [id number] /2022 [facility] 32810-1.63 01/30 [facility] Encounter [id number] [facility] 04442-0.63 01/30 [facility] En[facility] [id number] /2022 [facility] 26832-8.63 01/30 [facility] En[facility] [id number] [facility] [place] OFFICE O/P 22788-4. Diagnos VANDANA,TI 01/30 [facility] EST [id number] is: MOTHY E [facility] MINIMAL ICD-10- [facility] PROB CM I10 [place] [facility] (primar y) hyperte nsion<b r/>with Provide r Comment s: Hyperte nsion ELECTROCAR 51623-5.68 Diagnos UZMA EPSTEIN 01/30 [facility] DIOGRAM [id number] is: A ICUT REPORT ICD-10- HCS CM Z13.6 Encount er for screeni ng for cardiov ascular disorde rs
with Provide r Comment s: Encount er for Screeni ng for Cardiov ascular Disorde rs Outpatient 47142-6.63 01/30 [facility] En[place] [id number] /2022 [facility] [place] [facility] OFFICE O/P 76909-0.63 Diagnos YURIDIA HAGAN 01/30 [facility] EST MOD [id number] is: JED [facility] 30-39 MIN ICD-10- [facility] [place] S20.461 [facility] Insect bite (nonven omous) of right back wall of thorax, init
with Provide r Comment s: Insect Bite (Nonven omous) of right Back Wall of Thorax, Initial Encount er Outpatient 82920-6.63 01/30 [facility] En[facility] [id number] /2022 [facility] 13048-7.63 01/30 [facility] En[facility] [id number] /2022 [facility] 99509-2.63 02/03 [facility] Encounter [id number] /2022 [facility] [place] 19340-2.63 02/03 [facility] Encounter [id number] /2022 [facility] [place] [facility] Out[facility] [id number] CASS[place], [facility]/04 [facility] En[facility] [id number] GITA [facility] [facility] Out[facility] [id number] 02/04 [facility] Encounter [id number] [facility] [place] INTRAORAL [id number] Diagnos STEVEN DE LEON 02/04 [facility] PERIAPICAL [id number] is: AM CNTR L EA ADD ICD-10- [facility] CM [place] K08.89 SETS Other HCS specifi ed disorde rs of teeth and support ing structu res<br/ >with Provide r Comment s: Other specifi ed disorde rs of teeth and support ing structu res PSYTX W PT Diagnos MER,CHR 02/06 [facility] 30 MINUTES [id number] is: IS CNTR L ICD-10- [facility] [place] F43.10 SETS Post-tr HCS aumatic stress disorde r, unspeci fied
with Provide r Comment s: Posttra umatic stress disorde r (SCT [id number] 3) OFFICE O/P Diagnos SCRUGGS,W 02/07 [facility] EST LOW [id number] is: ILLIAM J CNTR L 20-29 MIN ICD-10- [facility] CM R21 [place] Rash SETS and HCS other nonspec ific skin eruptio n
w ith Provide r Comment s: Pruriti c rash (SNOMED CT [id number] 2) Outpatient 02/10 [facility] Encounter [id number] /2022 [facility] Out[facility] 38732-3.02/10 [facility] Encounter [id number] /2022 [facility] [place] OFFICE O/P Diagnos ANNA, 02/10 [facility] EST [id number] is: TAE [facility] MINIMAL ICD-10- [facility] PROB CM [place] Z71.9 [facility]S Floor Covering Printer Assistant HCS ing, unspeci fied
with Provide r Comment s: Floor Covering Printer Assistant ing,Uns pec OFFICE O/P Diagnos HAGAN,EL 02/10 [facility] EST LOW [id number] is: JED CNTRL 20-29 MIN ICD-10- [facility] CM R21 [place] Rash SETS and HCS other nonspec ific skin eruptio n
w ith Provide r Comment s: Rash and other Nonspec ific Skin Eruptio n Outpatient [id number] 02/11 [facility] Encounter [id number] [facility] [place] Outpatient 98448-0.02/11 [facility] Encounter [id number] /2022 [facility] [place] [id number] Diagnos MER,CHR 02/12 [facility] 45 MINUTES [id number] is: CNTR L ICD-10- [facility] CM [place] F43.10 SETS Post-tr HCS aumatic stress disorde r, unspeci fied
with Provide r Comment s: Posttra umatic stress disorde r (SCT [id number] 3) [facility]/ [id number] Diagnos JOSE GREGORIO 02/14 [facility] WORK [id number] is: CNTRL REINTEGRAT ICD-10- [facility] ION CM [place] Z56.0 SETS Unemplo HCS yment, unspeci fied
with Provide r Comment s: Unemplo yment, unspeci fied [facility] [id number] Diagnos JOSE GREGORIO 02/25 [facility] WORK [id number] is: ND CNTR[facility] REINTEGRAT ICD-10- [facility] ION CM [place] Z56.0 SETS Unemplo HCS yment, unspeci fied
with Provide r Comment s: Unemplo yment, unspeci fied [facility] [id number] Diagnos JOSE GREGORIO 02/26 [facility] WORK [id number] is: CNTRL REINTEGRAT ICD-10- [facility] ION CM [place] Z56.0 SETS Unemplo HCS yment, unspeci fied
with Provide r Comment s: Unemplo yment, unspeci fied Outpatient [id number] 02/27 [facility] Encounter [id number] [facility] [place] [facility]/ [id number] Diagnos JOSE GREGORIO 03/04 [place] WORK [id number] is: CNTRL REINTEGRAT ICD-10- [facility] ION CM [place] Z56.0 SETS Unemplo HCS yment, unspeci fied
with Provide r Comment s: Unemplo yment, unspeci fied OFFICE O/P [id number] Diagnos NARCISO,JA 03/17 [facility] EST SF [id number] is: CQUELYN CNTRL 10-19 MIN ICD-10- [facility] [place] F43.10 SETS Post-tr HCS aumatic stress disorde r, unspeci fied
with Provide r Comment s: Posttra umatic stress disorde r (SCT [id number] 3) COMMUNITY/ Diagnos JGJOSE 03/18 [facility] WORK [id number] is: ND CNTRL REINTEGRAT ICD-10- [facility] ION CM [place] Z56.0 SETS Unemplo HCS yment, unspeci fied
with Provide r Comment s: Unemplo yment, unspeci fied PSYTX W PT Diagnos MER,CHR 03/28 [facility] 45 MINUTES [id number] is: ISTIE CNTR L ICD-10- [facility] CM [place] F43.10 SETS Post-tr HCS aumatic stress disorde r, unspeci fied
with Provide r Comment s: Posttra umatic stress disorde r (SCT [id number] 3) Outpatient 03/28 [facility] Encounter 1. [facility] SUPP MAINT Diagnos JOSE GREGORIO 04/01 [facility] EM[facility], 15 [id number] is: CNTR L MIN ICD-10- [facility] CM [place] Z56.9 SETS Unspeci HCS fied problem s related to employm ent<br/ >with Provide r Comment s: Unspeci fied Problem s Related to Employm ent Outpatient [id number]/16 [facility] Encounter [id number] /2022 [facility] DENTAL Diagnos HOHREITER, 04/17 [facility] A PANORAMIC [id number] is: VINCENT CNT RL IMAGE ICD-10- [facility] [place] K08.9 SET[facility] Disorde HCS r of teeth and support ing structu res, unspeci fied
with Provide r Comment s: Disorde r of teeth and support ing structu res, unspeci fied Procedures Combined list of: 1) Procedures from [facility] Veterans Affairs facilities going back up to the last 18 months, not all [place] non-surgical procedures are included; 2) All procedures from the Department of Defense facilities. Procedure Procedure Type Code Date Perfomer Comments Sourc e No data is provided for this DoD section because a [facility] internal system error occurred when retrieving data. A future request for this document may succe fully include data for this section if the system i ue has been resolved. Social History Combined list of available smoking, tobacco, and other social history [facility]. Social History Type Response Date Comment Source Tobacco smoking [facility]-TO[facility]ACCO NEVER USED 05/23/2021 [facility] status [facility] History of tobacco [place]-TOBACCO NEVER USED 05/21/2020 [facility] use History of tobacco [place]-TO[place]AC[place] NEVER USED 03/02/2019 [facility] use History of tobacco [place]-TOBACCO NEVER USED 06/07/2018 [facility] use History of tobacco LIFETIME NON-TOBACCO 01/21/2017 [facility] [place] use USER History of tobacco LIFETIME NON-TOBACCO 10/09/2015 [facility] [place] use USER History of tobacco LIFETIME NON-TOBACCO 05/10/2013 [facility] [place] use USER This section is an [facility] empty social history section. Plan of Care List of future care activities from Department of Veterans Affairs facilities. Additional future care activities may be listed in the Assessment and Plan section. Date/Time Care Activity Care Activity Detail Facility 04/25/2022 AMBULATORY - PSYCHIAT[facility]
--- OUTSIDE RECORDS SUMMARY | 2022-04-18 09:52 | XMS_ITS | Encounter Summary ---
:1990 Author Organization Department of [facility] rs Address [address] [place] [address] Support Name Relationship Address Phone TETE TRAN Unavailable [address] [place] [address] THOMAS MONTOYA Unavailable [address] [facility] [place] [address] Insurance Providers: All historical and current Section Date Range: From patient's date of to the date document was created.This section includes the names of all active insurance providers for the patient. Insurance Type of Plan Start of End of Group Member Insurance Policy P atient's Provider Coverage Name Policy Policy Number ID Provider's Ojeda's Relationship Coverage Coverage Telephone Name to Policy Number Ojeda [facility] Aug 03, [id number] ROSINA CALLAHAN PATIENT BEE GIMENEZ 2019 [id number] STEPHANIE JOHNSON [facility]GAN[facility] E DEPT Selected Encounter This section includes the information on record at NH for the Encounter. Date/Time Encounter Type Encounter Reason Provider Source Description May 03, 2021 ADM SARSCOV2 PRIMARY ICD-10-CM Z23 MARLENY CASTILLO 02:00 PM 100MCG/0.5ML1ST CARE/MEDICINE Encounter for MARY immunization with Provider Comments: Encounter for Immunization IHE Encounter Template Text not used by NH Assessments - Encounter Diagnoses This section includes the primary and secondary diagnoses documented for the Encounter. Date/Time Primary/Secondary Diagnosis Name Provider Source Diagnosis May 03, 2021 PRIMARY Encounter for MARLENY CASTILLO [facility] N 02:12 PM immunization [place] [facility] Plan of Treatment: Future Appointments (+ 6 months) and Future Tests (+/- 45 days) The Plan of Treatment section includes future care activities for the patient from all [place] treatmentfacilities. This section includes future appointments and future orders which are active, pending orscheduled.Future Appointments This section includes appointments that were scheduled to occur 6 months from the date of the Encounter, up to a maximum of 20 appointments. The data comes from all [place] treatment facilities. Appointment Date/Time Appointment Type Appointment Facili ty Name May 23, 2021 02:30 PM AMBULATORY [facility]IATRY [facility] [place] [facility] May 31, 2021 02:00 PM AMBULATORY - MEDICINE [facility] [place] [facility] Jun 04, 2021 04:00 PM AMBULATORY - PS[facility]CHIATRY [facility] [place] [facility] Jun 18, 2021 04:00 PM AMBULATORY - PS[facility]CHIATRY [facility] [place] [facility] Jul 02, 2021 04:00 PM AMBULATORY - PSYCHIATRY [facility] [place] [facility] Jul 03, 2021 12:00 PM AMBULATORY - PSYCHIATRY [facility] [place] [facility] Jul 04, 2021 02:30 PM AMBULATORY - PSYCHIATRY [facility] [place] [facility] Jul 11, 2021 01:00 PM AMBULATORY - MEDICINE [facility] [place] [facility] Jul 16, 2021 04:00 PM AMBULATORY - PS[facility]CHIATRY [facility] [place] [facility] Jul 18, 2021 01:30 PM AMBULATORY - PS[facility]CHIATRY [facility] [place] [facility] Jul 25, 2021 02:30 PM AMBULATORY - PSYCHIATRY [facility] [place] [facility] Jul 26, 2021 09:00 AM AMBULATORY - MEDICINE [facility] [place] [facility] Jul 30, 2021 11:30 AM AMBULATORY - PSYCHIATRY [facility] [place] [facility] Aug 07, 2021 11:00 AM AMBULATORY - MEDICINE [facility] [place] [facility] Aug 13, 2021 07:30 AM AMBULATORY - NONE [facility] [place] [facility] Aug 19, 2021 02:00 PM AMBULATORY - PSYCHIATRY [facility] [place] [facility] Aug 28, 2021 10:20 AM AMBULATORY - MEDICINE [facility] [place] [facility] Aug 28, 2021 03:00 PM AMBULATORY - MEDICINE [facility] Aug 28, 2021 03:01 PM AMBULATORY MEDICINE [facility] Aug 28, 2021 03:15 PM [facility] Immunizations: All administered on the encounter date This section contains immunizations associated to the Encounter. Immunization Series Date Issued Reaction Comments COVID-19 (MODERNA), MRNA, 1 May 03, 2021 MO D; [id number]; 05/03/2021 LNP-S, PF, 100 MCG/0.5 ML DOSE Encounter Notes: All associated encounter notes This section contains the clinical notes associated to the Encounter. Date/Time Encounter Note(s) Provider Source May 03, 2021 02:10 PREVENTIVE MEDICINE NURSING NOTE: Zonia CASTILLO [facility] LOCAL TITLE: CLINICAL REMINDERS/NURSING [facility] STANDARD TITLE: PREVENTIVE MEDICINE NURSING NOTE DATE OF NOTE: MAY 03, 2021@14:10 ENTRY DATE: MAY 03, 2021@14:10:39 AUTHOR: RADHA CASTILLO EXP COSIGNER: URGENCY: STATUS: COMPLETED COVID-19 Immunization: The patient was given the EUA fact sheet for th is vaccine which lists the benefits and side effects of the vaccine and [facility] reviews the risks of the vaccine. The [...] consent to receive the vacc ine. Dose #1 The patient received Moderna COVID-19 Vaccine 0 .5 ml IM. MVX (Manuf); Lot#; Exp Date: MOD; [id number]; 04/19 Administration Anatomic site: Right Deltoid Vaccine administered without complications. The patient was advised to remain in the facility for 15 minutes post vacc ination. The patient was given a completed COVID-19 vaccination record c damaris, a copy of the [place] Side Effects and Adverse Events Reporting Fact Sheet and instructed on how to report any adverse reactions.The patient was gi poly information on the need to return for another dose of vaccine in 2 8 days. Vaccine administered by policy/protocol. /es/ Radha Castillo MSN RN CNL Firm Director General Signed: 05/03/2021 14:15
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
--- OUTSIDE RECORDS SUMMARY | 2022-04-18 09:53 | XMS_ITS | Encounter Summary ---
:1990 Author Organization Department [facility] rs Address [address] [place] [address] Support Name Relationship Address Phone TETE TRAN Unavailable [address] [facility] [place] [address] THOMAS MONTOYA Unavailable 6 [facility] [place] [address] Insurance Providers: All historical and current Section Date Range: From patient's date of to the date document was created.This section includes the names of all active insurance providers for the patient. Insurance Type of Plan Start of End of Group Member Insurance Policy P atient's Provider Coverage Name Policy Policy Number ID Provider's Ojeda's Relationship Coverage Coverage Telephone Name to Policy Number Ojeda [facility] Aug 03, [id number] [phone] ALIAROSINA Mane 2019 [id number] STEPHANIE [facility]NSON [facility] DEPT Selected Encounter This section includes the information on record at [place] for the Encounter. Date/Time Encounter Type Encounter Description Reason Provider Source Apr 18, 2021 02:00 Outpatient Encounter TELEPHONE [facility] IHE Encounter Template Text not used by [place] Plan of Treatment: Future Appointments (+ 6 months) and Future Tests (+/- 45 days) The Plan of Treatment section includes future care activities for the patient from all [place] treatmentfacilities. This section includes future appointments and future orders which are active, pending orscheduled.Future Appointments This section includes appointments that were scheduled to occur 6 months from the date of the Encounter, up to a maximum of 20 appointments. The data comes from all [place] treatment facilities. Appointment Date/Time Appointment Type Appointment Facili ty Name Apr 23, 2021 04:00 PM AMBULATORY - [facility]YCHIATRY [facility] Apr 30, 2021 01:30 PM AMBULATORY - [facility]IC[facility] [place] [facility] Apr 30, 2021 04:00 PM AMBULATORY - PS[facility]CHIATRY [facility] [place] [facility] May 03, 2021 02:00 PM AMBULATORY - MEDICINE [facility] [place] [facility] May 23, 2021 02:30 PM AMBULATORY - PS[facility]CHIATRY [facility] [place] [facility] May 31, 2021 02:00 PM AMBULATORY - MEDICINE [facility] [place] [facility] Jun 04, 2021 04:00 PM AMBULATORY - PS[facility]CHIATRY [facility] [place] [facility] Jun 18, 2021 04:00 PM AMBULATORY - PS[facility]CHIATRY [facility] [place] [facility] Jul 02, 2021 04:00 PM AMBULATORY - PSYCHIATRY [facility] [place] [facility] Jul 03, 2021 12:00 PM AMBULATORY - PS[facility]CHIATRY [facility] [place] [facility] Jul 04, 2021 02:30 PM AMBULATORY - PS[facility]CHIATRY [facility] [place] [facility] Jul 11, 2021 01:00 PM AMBULATORY - MEDICINE [facility] [place] [facility] Jul 16, 2021 04:00 PM AMBULATORY - PSYCHIATRY [facility] [place] [facility] Jul 18, 2021 01:30 PM AMBULATORY - PS[facility]CHIATRY [facility] [place] [facility] Jul 25, 2021 02:30 PM AMBULATORY - PSYCHIATRY [facility] [place] [facility] Jul 26, 2021 09:00 AM AMBULATORY - MEDICINE [facility] [place] [facility] Jul 30, 2021 11:30 AM AMBULATORY - PSYCHIATRY [facility] [place] [facility] Aug 07, 2021 11:00 AM AMBULATORY - MEDICINE [facility] [place] [facility] Aug 13, 2021 07:30 AM AMBULATORY - NONE [facility] [place] [facility] Aug 19, 2021 02:00 PM AMBULATORY - PS[facility]CHIATRY [facility] [place] [facility] Encounter Notes: All associated encounter notes This section contains the clinical notes associated to the Encounter. Date/Time Encounter Note(s) Provider Source Apr 18, 2021 08:30 ADMINISTRATIVE NOTE: ROYER FISHER [facility] TITLE: ADMINISTRATIVE NOTE [place] [facility] STANDARD TITLE: ADMINISTRATIVE NOTE DATE OF NOTE: APR 18, 2021@08:30 ENTRY DATE: APR 18, 2021@08:30:34 AUTHOR: ROYER FISHER EXP COSIGNER: URGENCY: STATUS: COMPLETED called and spoke let him know of appt ca ncellation with provider. rescheduled appt as well /es/ ROYER FISHER ADVANCED TUBE WORKER Signed: 04/18/2021 08:30
--- OUTSIDE RECORDS SUMMARY | 2022-04-18 09:53 | XMS_ITS ---
:1990 Author Organization Department [facility] rs Address [address] [place] [address] Support Name Relationship Address Phone TETE TRAN Unavailable 36 [facility] [address] THOMAS MONTOYA Unavailable 6 [place] [address] Insurance Providers: All historical and current Section Date Range: From patient's date of to the date document was created.This section includes the names of all active insurance providers for the patient. Insurance Type of Plan Start of End of Group Member Insurance Policy P atient's Provider Coverage Name Policy Policy Number ID Provider's Ojeda's Relationship Coverage Coverage Telephone Name to Policy Number Ojeda [facility] Aug 03, [id number] [phone] ROSA MARIA ChapoWI PATIENT BEE GIMENEZ 2019 [id number] STEPHANIE JOHNSON [facility] DEPT Selected Encounter This section includes the information on record at [place] for the Encounter. Date/Time Encounter Type Encounter Reason Provider Source Description Apr 30, 2021 PSYTX W PT 30 TELEPHONE ICD-10-CM F43.10 MERLUCINDA Serenity 04:00 PM MINUTES Post-traumatic IE stress disorder, unspecified with Provider Comments: Posttraumatic stress disorder ([facility] [id number]) IHE Encounter Template Text not used by [facility] Assessments - Encounter Diagnoses This section includes the primary and secondary diagnoses documented for the Encounter. Date/Time Primary/Secondary Diagnosis Name Provider Source Diagnosis Apr 30, 2021 PRIMARY Post-traumatic MERVERO [place] [facility] 04:00 PM stress disorder, [facility] [place] [facility] unspecified Apr 30, 2021 SECONDARY Major depressive MERDAI [place] [facility] 04:00 PM disorder, [facility] [place] [facility] recurrent, moderate Plan of Treatment: Future Appointments (+ 6 months) and Future Tests (+/- 45 days) The Plan of Treatment section includes future care activities for the patient from [facility] This section includes future appointments and future orders which are active, pending orscheduled.Future Appointments This section includes appointments that were scheduled to occur 6 months from the date of the Encounter, up to a maximum of 20 appointments. The data comes from all [place] treatment facilities. Appointment Date/Time Appointment Type Appointment Facili ty Name May 03, 2021 02:00 PM AMBULATORY - MEDICINE [facility] [place] [facility] May 23, 2021 02:30 PM AMBULATORY - PSYCHIATRY [facility] [place] [facility] May 31, 2021 02:00 PM AMBULATORY - MEDICINE [facility] [place] [facility] Jun 04, 2021 04:00 PM AMBULATORY - PSYCHIATRY [facility] [place] [facility] Jun 18, 2021 04:00 PM AMBULATORY - PSYCHIATRY [facility] [place] [facility] Jul 02, 2021 04:00 PM AMBULATORY - PSYCHIATRY [facility] [place] [facility] Jul 03, 2021 12:00 PM AMBULATORY - PS[facility]CHIATRY [facility] [place] [facility] Jul 04, 2021 02:30 PM AMBULATORY - PSYCHIATRY [facility] [place] [facility] Jul 11, 2021 01:00 PM AMBULATORY - MEDICINE [facility] [place] [facility] Jul 16, 2021 04:00 PM AMBULATORY - PSYCHIATRY [facility] [place] [facility] Jul 18, 2021 01:30 PM AMBULATORY - PSYCHIATRY [facility] [place] [facility] Jul 25, 2021 02:30 PM AMBULATORY - PSYCHIATRY [facility] [place] [facility] Jul 26, 2021 09:00 AM AMBULATORY - MEDICINE [facility] [place] [facility] Jul 30, 2021 11:30 AM AMBULATORY - PSYCHIATRY [facility] [place] [facility] Aug 07, 2021 11:00 AM AMBULATORY - MEDICINE [facility] [place] [facility] Aug 13, 2021 07:30 AM AMBULATORY - NONE [facility] [place] [facility] Aug 19, 2021 02:00 PM AMBULATORY - PS[place]CHIATRY [facility] [place] [facility] Aug 28, 2021 10:20 AM AMBULATORY - MEDICINE [place] [facility] [place] [facility] Aug 28, 2021 03:00 PM AMBULATORY - MEDICINE [place] [facility] [place] [facility] Aug 28, 2021 03:01 PM AMBULATORY - MEDICINE [facility] Encounter Notes: All associated encounter notes This section contains the clinical notes associated to the Encounter. Date/Time Encounter Note(s) Provider Source Apr 30, 2021 02:57 SOCIAL WORK NOTE: ANIVAL DEL ANGEL [facility] WS TRN PM LOCAL TITLE: SOCIAL WORK NOTE [facility] STANDARD TITLE: SOCIAL WORK NOTE DATE OF NOTE: APR 30, 2021@14:57 ENTRY DATE: APR 30, 2021@14:58:06 AUTHOR: ANIVAL DEL ANGEL EXP COSIGNER: URGENCY: STATUS: COMPLETED VISIT DURATION: 30 minutes DIAGNOSES: PTSD; [facility] [employer] STATEMENT OF GOALS/CONCERNS: reported he thinks he's doing okay, and has been trying to practice being more self-aware. He said he misses the [facility] department - the chaos and the calls, it was highly charged . He said I often feel like I'm in a dream and I'm going to wake up in a cruiser...Th ere are days where I just don't feel present. 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 He said soumya t yesterday he felt depressed, for no good reason . He said he just waited it out and it improved by the end of the day. He also said he was out of his meds. He tried to refill them on my [facility] but it didn't wo rk. 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 He also shared some difficulties remembering to take them and how he can feel scatter brained and unorganized . SESSION FOCUS: coping with PTSD INTERVENTIONS: Psychotherapeutic Interventions: Assessment of sxs, s/i, and well-being. [place] for med-adherance. Assisted him with refillin g his medications. Discussed ways he might better remember to take his medica tion. 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 Discussed his sxs, his mental health treatment, and next steps. He said his current job location ends in a month and he hope s he will be able to come in person. Discussed practice to try to stay presen t (what am I thinking, what am I feeling, what am I doing in the moment). ASSESSMENT: BRIEF ASSESSMENT OF MENTAL STATUS: 1. Appearance (grooming, attire, apparent age) within normal limits: N/A 2. Thought content was organized and goal direc christo: Yes 3. Speech was coherent and unimpaired: Yes 4. Affect was appropriate and unremarkable: N/A 5. Demeanor was calm, with no signs of agitatio n or restlessness: Yes 6. Sleep was largely unimpaired and restful: Not asked 7. No evidence of psychosis (hallucinations or delusions): Yes 8. Mood was normal: depression present Other Observations: RISK ASSESSMENT: Denies s/i PLAN FOR FOLLOW-UP: Phone call in two weeks /ivelisse/ ANIVAL DEL ANGEL [facility] CLINICAL EMERGENCY DEPARTMENT RN Signed: 04/30/2021 16:37
--- OUTSIDE RECORDS SUMMARY | 2022-04-18 09:53 | XMS_ITS | Encounter Summary ---
:1990 Author Organization Department [facility] rs Address [address] [place] [address] Support Name Relationship Address Phone TETE TRAN Unavailable 36 [facility] [phone] [address] [place] [address] THOMAS MONTOYA Unavailable 6 [facility] [place] [address] Insurance Providers: All historical and current Section Date Range: From patient's date of to the date document was created.This section includes the names of all active insurance providers for the patient. Insurance Type of Plan Start of End of Group Member Insurance Policy P atient's Provider Coverage Name Policy Policy Number ID Provider's Ojeda's Relationship Coverage Coverage Telephone Name to Policy Number Ojeda [facility] Aug 03, [id number] [phone] ROSINA CALLAHAN 2019 [id number] 5 STEPHANIE JOHNSON [facility] DEPT Selected Encounter This section includes the information on record at [place] for the Encounter. Date/Time Encounter Type Encounter Description Reason Provider Source Apr 23, 2021 04:00 Outpatient Encounter TELEPHONE [facility] IHE Encounter Template Text not used by [place] Plan of Treatment: Future Appointments (+ 6 months) and Future Tests (+/- 45 days) The Plan of Treatment section includes future care activities for the patient from all [place] treatmentfacilities. This section includes future appointments and future orders which are active, pending orscheduled.Future Appointments This section includes appointments that were scheduled to occur 6 months from the date of the Encounter, up to a maximum of 20 appointments. The data comes from all [place] treatment facilities. Appointment Date/Time Appointment Type Appointment Facili ty Name Apr 30, 2021 01:30 PM AMBULATORY - REHAB MEDICINE [facility] Apr 30, 2021 04:00 PM AMBULATORY - PSYCHIATRY [facility] [place] [facility] May 03, 2021 02:00 PM AMBULATORY - MEDICINE [facility] [place] [facility] May 23, 2021 02:30 PM AMBULATORY - PSYCHIATRY [facility] [place] [facility] May 31, 2021 02:00 PM AMBULATORY - MEDICINE [facility] [place] [facility] Jun 04, 2021 04:00 PM AMBULATORY - PSYCHIATRY [facility] [place] [facility] Jun 18, 2021 04:00 PM AMBULATORY - PSYCHIATRY [facility] [place] [facility] Jul 02, 2021 04:00 PM AMBULATORY - PSYCHIATRY [facility] [place] [facility] Jul 03, 2021 12:00 PM AMBULATORY - PSYCHIATRY [facility] [place] [facility] Jul 04, 2021 02:30 PM AMBULATORY - PSYCHIATRY [facility] [place] [facility] Jul 11, 2021 01:00 PM AMBULATORY - MEDICINE [facility] [place] [facility] Jul 16, 2021 04:00 PM AMBULATORY - PSYCHIATRY [facility] [place] [facility] Jul 18, 2021 01:30 PM AMBULATORY - PSYCHIATRY [facility] [place] [facility] Jul 25, 2021 02:30 PM AMBULATORY - PSYCHIATRY [facility] [place] [facility] Jul 26, 2021 09:00 AM AMBULATORY - MEDICINE [facility] [place] [facility] Jul 30, 2021 11:30 AM AMBULATORY - PSYCHIATRY [facility] [place] [facility] Aug 07, 2021 11:00 AM AMBULATORY - MEDICINE [facility] [place] [facility] Aug 13, 2021 07:30 AM AMBULATORY - NONE [facility] [place] [facility] Aug 19, 2021 02:00 PM AMBULATORY - PSYCHIATRY [facility] [place] [facility] Aug 28, 2021 10:20 AM AMBULATORY - MEDICINE [facility] [place] [facility] Encounter Notes: All associated encounter notes This section contains the clinical notes associated to the Encounter. Date/Time Encounter Note(s) Provider Source Apr 23, 2021 04:14 PM CLERICAL NOTE: ANIVAL DEL ANGEL [facility] LOCAL TITLE: APPOINTMENT NO SHOW [place] [facility] STANDARD TITLE: CLERICAL NOTE DATE OF NOTE: APR 23, 2021@16:14 ENTRY DATE: APR 23, 2021@16:14:56 AUTHOR: ANIVAL DEL ANGEL EXP COSIGNER: URGENCY: STATUS: COMPLETED APPOINTMENT NO SHOW Has ADDENDA Patient Name: GEORGE MONTOYA Patient SSN: [id number] Date and time of Appointment No show : 04/23/21 16:00 PATIENT PHONE - PHONE NUMBER [CELLULAR] - Patient's medical record was reviewed. Follow-up actions were determined and initiated: Please check/complete as applies: [X]Telephoned Directly [ ]Re-scheduled for next available appt [ ]Sent a N0-show letter ( must call for appointment) [X]Other (Emergent/Overbook, etc.): Business off ice to send letter Additional Comments: Made two attempts to reach during appoin tment time and left a voicemail about missed appointment. Requested he phone music writer back. Future Clinic Visits 04/30/2021 13:30 CWM/NO/OCCUPATIONAL THERA 05/03/2021 14:00 CWM/NO/COVID VACCINE 05/23/2021 14:30 CWM/NO/MHC/NARCISO/TELE 05/28/2021 14:30 NHM/OPTOMETRY/TENA/ /es/ VELASQUEZ RAJAN CLINICAL METAL FURNACE OPERATOR Signed: 04/23/2021 16:15 04/24/2021 ADDENDUM STATUS: COMPLETED Second phone call to about missed appoin tment. He apologized saying there was terrible construction when he was leav ing work and couldn't get anywhere where there was cell receptionist clerk. Discussed rescheduling. He would like to reschedule to next week, which music writer confirm ed. He is requesting phone at this time given the logistics of where he is at the end of the day. /es/ VELASQUEZ RAJAN CLINICAL METAL FURNACE OPERATOR Signed: 04/24/2021 09:18
--- OUTSIDE RECORDS SUMMARY | 2022-04-18 09:53 | XMS_ITS | Encounter Summary ---
:1990 Author Organization [facility] rs Address [address] [place] [address] Support Name Relationship Address Phone TETE TRAN Unavailable [address] [facility] [place] [address] THOMAS MONTOYA Unavailable 6 [facility] [place] [address] Insurance Providers: All historical and current Section Date Range: From patient's date of to the date document was created.This section includes the names of all active insurance providers for the patient. Insurance Type of Plan Start of End of Group Member Insurance Policy P atient's Provider Coverage Name Policy Policy Number ID Provider's Ojeda's Relationship Coverage Coverage Telephone Name to Policy Number Ojeda [facility] Aug 03, [id number] [phone] ALIAROSINA Mane 2019 [id number] STEPHANIE JOHNSON [facility] E DEPT Selected Encounter This section includes the information on record at [place] for the Encounter. Date/Time Encounter Type Encounter Description Reason Provider Source Apr 22, 2021 01:42 Outpatient Encounter TELEPHONE [facility] IHE Encounter Template Text not used by [place] Plan of Treatment: Future Appointments (+ 6 months) and Future Tests (+/- 45 days) The Plan of Treatment section includes future care activities for the patient from all [place] treatmentfacilities. This section includes future appointments and future orders which are active, pending orscheduled.Future Appointments This section includes appointments that were scheduled to occur 6 months from the date of the Encounter, up to a maximum of 20 appointments. The data comes from all [place] treatment facilities. Appointment Date/Time Appointment Type Appointment Facili ty Name Apr 23, 2021 04:00 PM AMBULATORY - PSYCHIATRY [facility] Apr 30, 2021 01:30 PM AMBULATORY - REHAB MEDICINE [facility] [place] [facility] Apr 30, 2021 04:00 PM AMBULATORY - PSYCHIATRY [facility] [place] [facility] May 03, 2021 02:00 PM AMBULATORY - MEDICINE [facility] [place] [facility] May 23, 2021 02:30 PM AMBULATORY - PSYCHIATRY [facility] [place] [facility] May 31, 2021 02:00 PM AMBULATORY - MEDICINE [facility] [place] [facility] Jun 04, 2021 04:00 PM AMBULATORY - PSYCHIATRY [facility] [place] [facility] Jun 18, 2021 04:00 PM AMBULATORY - PSYCHIATRY [facility] [place] [facility] Jul 02, 2021 04:00 PM AMBULATORY - PSYCHIATRY [facility] [place] [facility] Jul 03, 2021 12:00 PM AMBULATORY - PSYCHIATRY [facility] [place] [facility] Jul 04, 2021 02:30 PM AMBULATORY - PSYCHIATRY [facility] [place] [facility] Jul 11, 2021 01:00 PM AMBULATORY - MEDICINE [facility] [place] [facility] Jul 16, 2021 04:00 PM AMBULATORY - PSYCHIATRY [facility] [place] [facility] Jul 18, 2021 01:30 PM AMBULATORY - PSYCHIATRY [facility] [place] [facility] Jul 25, 2021 02:30 PM AMBULATORY - PSYCHIATRY [facility] [place] [facility] Jul 26, 2021 09:00 AM AMBULATORY - MEDICINE [facility] [place] [facility] Jul 30, 2021 11:30 AM AMBULATORY - PSYCHIATRY [facility] [place] [facility] Aug 07, 2021 11:00 AM AMBULATORY - MEDICINE [facility] [place] [facility] Aug 13, 2021 07:30 AM AMBULATORY - NONE [facility] [place] [facility] Aug 19, 2021 02:00 PM AMBULATORY - PSYCHIATRY [facility] [place] [facility] Encounter Notes: All associated encounter notes This section contains the clinical notes associated to the Encounter. Date/Time Encounter Note(s) Provider Source Apr 22, 2021 01:42 PM ADMINISTRATIVE NOTE: WOLF PEREZ [facility] TRL WSTRN LOCAL TITLE: ADMINISTRATIVE NOTE [facility] STANDARD TITLE: ADMINISTRATIVE NOTE DATE OF NOTE: APR 22, 2021@13:42 ENTRY DATE: APR 22, 2021@13:42:45 AUTHOR: WOLF PEREZ EXP COSIGNER: URGENCY: STATUS: COMPLETED MSA spoke with the - This is a re minder call for your [facility] telephone apt. ThursdayApril 23@16:00- thank you. /ivelisse/ WOLF PEREZ PEDIATRIC SOCIAL WORKER Signed: 04/22/2021 13:43
--- OUTSIDE RECORDS SUMMARY | 2022-04-18 10:01 | XMS_ITS | Encounter Summary ---
:1990 Author Organization Department of [facility] rs Address [address] [place] [address] Support Name Relationship Address Phone TETE TRAN Unavailable [address] [facility] [place] [address] THOMAS MONTOYA Unavailable [address] [address] Insurance Providers: All historical and current Section Date Range: From patient's date of to the date document was created.This section includes the names of all active insurance providers for the patient. Insurance Type of Plan Start of End of Group Member Insurance Policy P atient's Provider Coverage Name Policy Policy Number ID Provider's Ojeda's Relationship Coverage Coverage Telephone Name to Policy Number Ojeda [facility] Aug 03, [id number] ALIAROSINA Mane PATIENT BEE GIMENEZ [id number] STEPHANIE JOHNSON [facility] DEPT Selected Encounter This section includes the information on record at [place] for the Encounter. Date/Time Encounter Type Encounter Description Reason Provider Source Oct 23, 2021 10:00 Outpatient [facility]counter [facility] Encounter Template Text not used by [place] Plan of Treatment: Future Appointments (+ 6 months) and Future Tests (+/- 45 days) The Plan of Treatment section includes future care activities for the patient from all [place] treatmentfacilities. This section includes future appointments and future orders which are active, pending orscheduled.Future Appointments This section includes appointments that were scheduled to occur 6 months from the date of the Encounter, up to a maximum of 20 appointments. The data comes from all [place] treatment facilities. Appointment Date/Time Appointment Type Appointment Facili ty Name Oct 30, 2021 10:00 AM AMBULATORY - [facility]ATRY [facility] December 12, 2021 04:00 PM AMBULATORY [facility] [place] Dec 19, 2021 11:45 AM [facility]ULAT[facility]IC[facility] [place] [facility] Dec 19, 2021 02:30 PM AMBULATORY - [facility] [place] [facility] Dec 20, 2021 04:00 PM AMBULATORY - [facility] [place] [facility] Dec 26, 2021 04:00 PM AMBULATORY [facility] [place] [facility] Jan 09, 2022 04:00 PM AMBULATORY - [facility] [place] [facility] Jan 23, 2022 02:30 PM AMBULATORY [facility] [place] [facility] Jan 30, 2022 08:00 AM [facility]ULATORY [facility]IC[facility] [place] [facility] Jan 30, 2022 11:45 AM AM[facility]ULATORY [facility] [place] [facility] Jan 30, 2022 01:00 PM [facility]ULATORY [facility] [place] [facility] Feb 04, 2022 02:15 PM AMBULATORY - NONE [facility] [place] [facility] Feb 06, 2022 04:00 PM AMBULATORY - PS[facility]CHIATRY [facility] [place] [facility] Feb 07, 2022 01:00 PM AMBULATORY [facility]IC[facility] [place] [facility] Feb 10, 2022 01:15 PM AM[facility]ULATORY [facility] [place] [facility] Feb 10, 2022 01:45 PM AM[facility]ULATORY - [facility] [place] [facility] Feb 12, 2022 09:00 AM AMBULATORY - PS[facility] [place] [facility] Feb 14, 2022 12:00 PM AMBULATORY - PS[facility]IATRY [facility] [place] [facility] Feb 25, 2022 01:00 PM AMBULATORY - PS[facility]ATRY [facility] [place] [facility] Feb 27, 2022 02:00 PM AMBULATORY - PS[facility]AT[facility] [place] [facility] Social History: Smoking Status (Most current) and Tobacco Use (All prior to encounter date) This section includes the most current, and the historical, smoking and tobacco-related health factors from the [facility] facility where the Encounter took place.Current Smoking Status This section includes the most current smoking, or tobacco-related health factor, from the [place] facility where the Encounter took place. Date/Time Current Smoking Status Comment Facility May 23, 2021 02:30 PM VA-TOBACCO NEVER USED [facility] [place] [facility] Encounter Notes: All associated encounter notes This section contains the clinical notes associated to the Encounter. Date/Time Encounter Note(s) Provider Source Oct 23, 2021 11:35 AM CLERICAL NOTE: XANDER PEREA [facility] LOCAL TITLE: APPOINTMENT NO SHOW [place] [facility] STANDARD TITLE: CLERICAL NOTE DATE OF NOTE: OCT 23, 2021@11:35 ENTRY DATE: OCT 23, 2021@11:35:19 AUTHOR: XANDER PERAE EXP COSIGNER: URGENCY: STATUS: COMPLETED Patient Name: GEORGE MONTOYA Patient SSN: [id number] Date and time of Appointment No show : 10/23/21 10:00 PATIENT PHONE - PHONE NUMBER [CELLULAR] - Patient's medical record was reviewed. Follow-up actions were determined and initiated: Please check/complete as applies: [X]Telephoned Directly [ ]Re-scheduled for next available appt [ ]Sent a N0-show letter ( must call for appointment) [ ]Other (Emergent/Overbook, etc.): Additional Comments: was called and he reportedly got poor sl eep last night and is not doing too hot . He denied any acute mental distr ess but moreso physical discomfort. voiced appreciation for the call and reportedly plans to attend next weeks group. Future Clinic Visits 10/29/2021 10:00 NHM/MHC/MER 10/30/2021 10:00 CWM/NO/VVC/MHC/OIF OEF ON 11/06/2021 09:00 NHM/MHC/MER 11/06/2021 10:00 CWM/NO/VVC/MHC/OIF OEF ON 11/12/2021 14:00 CWM/NO/MHC/NARCISO 11/15/2021 15:00 NHM/MHC/MER 11/19/2021 08:30 CWM/NO/DENTAL/DMD3 AM 11/20/2021 09:00 NHM/MHC/MER 12/19/2021 11:45 COM CARE-UROLOGY 02/07/2022 15:30 CWM/NO/PACT 7 08/28/2022 09:30 CWM/NO/OPTOMETRY/THADDEUS /es/ Xander Perea PsyD Staff Psychologist Signed: 10/23/2021 11:38 Receipt Acknowledged By: * AWAITING SIGNATURE * ANIVAL DEL ANGEL
--- OUTSIDE RECORDS SUMMARY | 2022-04-18 10:01 | XMS_ITS | Encounter Summary ---
:1990 Author Organization Department of [facility] rs Address [address] [place] [address] Support Name Relationship Address Phone TETE TRAN Unavailable [address] [place] [address] THOMAS MONTOYA Unavailable [address] [place] [address] Insurance Providers: All historical and current Section [...] Name to Policy Number Ojeda [facility] Aug 03, [id number] [phone] ROSINA CALLAHAN ASHLEE BROOKS 2019 [id number] STEPHANIE [facility] ORGANIZ E DEPT Selected Encounter This section includes the information on record at [place] for the Encounter. Date/Time Encounter Type Encounter Description Reason Provider Source Jan 30, 2022 09:05 Outpatient Encounter ADMIN PAT ACTIVTIES AM (ROHANCT) IHE Encounter Template Text not used by [place] Plan of Treatment: Future Appointments (+ 6 months) and Future Tests (+/- 45 days) The Plan of Treatment section includes future care activities for the patient from all [place] treatmentfacilities. This section includes future appointments and future orders which are active, pending orscheduled.Future Appointments This section includes appointments that were scheduled to occur 6 months from the date of the Encounter, up to a maximum of 20 appointments. The data comes from all [place] treatment facilities. Appointment Date/Time Appointment Type Appointment Facili ty Name Feb 04, 2022 02:15 PM AMBULATORY - NONE [facility] Feb 06, 2022 04:00 PM [facility] Feb 07, 2022 01:00 PM [facility] Feb 10, 2022 01:15 PM [facility] Feb 10, 2022 01:45 PM [facility] Feb 12, 2022 09:00 AM [facility] Feb 14, 2022 12:00 PM [facility] Feb 25, 2022 01:00 PM [facility] Feb 27, 2022 02:00 PM [facility] Mar 17, 2022 03:00 PM AM[facility]UL[facility] [place] [facility] Mar 28, 2022 09:00 AM AMBULATORY [facility] [place] [facility] Apr 17, 2022 01:00 PM AMBULATORY - NONE [facility] [place] [facility] Apr 25, 2022 09:00 AM AMBULATORY [facility] [place] [facility] May 09, 2022 09:00 AM AMBULATORY [facility] [place] [facility] May 23, 2022 09:00 AM AMBULATORY [facility] [place] [facility] Jul 17, 2022 08:30 AM AMBULATORY - NONE [facility] [place] [facility] Lab Results: +/- 30 days of the encounter This section includes the Chemistry and Hematology Lab Results on record with [place] for the patient. Radiology Reports and Pathology Reports are provided separately, in subsequent sections.Lab Results This section contains the Chemistry/Hematology Results that were resulted 30 days before or 30 daysafter the date of the Encounter. Date/Time Source Result Type Result - Unit Interpretation Reference Range Comment Feb 07, 2022 [facility] BRUCELLA ANTIBODY, Specimen Typ e: SERUM 01:[address] [place] [facility] AGGLUTINATION Comment: REFERE NCE RANGE: <1:80 The most reliable serologic indicator of brucellosis is a four-fold increase in antibody titer when testing acute and convalescent sera in parallel. In the absence of paired sera, a single specimen titer of 1:80 or greater is consistent with brucellosis in a patient with a compatible clinical history. This test was developed and its analytical performance characteri stics have been determined by [facility]. It has not been cleared or approved by FDA. This assay has been validated pursuant to the CLIA regulations and is used for clinical purposes. Test perfor med by [facility] [address] [place] [address] Web Press Roll Tender: Alejandrina Quick MD,PHD,[place] Test performed at [facility], [place], [place]. Ordering Provid er: DIMITRI SCRUGGS Report Released Date/Time: Feb 07, 2022 01:27 PM Reporting Lab: [facility] [address] [address] Performing Lab: [facility] [address] [facility], [address] [facility] [address] BRUCELLA ANTIBODY, AGGLUTINATION <1:80 Feb 07, 2022 [facility] BABESIA MICROTI Specimen Type: SERUM 01:43 PM [facility] ANTIBODIES (IgG, Comment: REFER ENCE RANGE: <1:64 REFERENCE RANGE: <1:20 Antibody Not Detected Elevated antibody levels to B. microti indicate exposure to the organism. Human babesiosis infection is transmitted by IgM) the bite of an infected Ixodes tick or less frequently from transfusion with blood from an infected donor. Definitive diagnosis is made by identifying intraerythrocytic organisms in peripheral blood. I n patients with low parasitemia, antibody detection by IFA is recommended. IgG levels greater than or equal to 1:1024 can be detected in acute phase patients with parasites in blood smears. The IFA assa y can be used as a seroepidemiologic tool to study the frequency and distribution of B. microti in endemic areas especially in persons with mixed infections also involving Borrelia burgdorferi. This aren t was developed and its analytical performance characteristics have been determined by [place]. It has not been cleared or approved by the U.S. Food and Drug A dministration. T his assay has been validated pursuant to the CLIA regulations and is used for clinical purposes. Test Performed by eDealyaBetty, [facility], [address] [facility] [place]it [place], [place] Ronald Abdul M.D., Ph.D., Director of Laboratories , CLIA [id number] TEST PERFORMED AT: , Ordering Provid er: DIMITRI SCRUGGS Report Released Date/Time: Feb 07, 2022 01:29 PM Reporting Lab: [facility] [address] [address] Performing Lab: [facility] [address] [facility], [address] [facility] [address] Babesia microti IgG <1:64 SEE BELOW Babesia microti IgM <1:20 SEE BELOW BABESIA MICROTI AB INTER SEE NOTE Feb 07, 2022 [facility] ANAPLASMA AND Specimen Type: SERUM 01:43 PM [facility] EHRLICHIA AB PANEL Comment: REF ERENCE RANGE: <1:64 REFERENCE RANGE: <1:20 Antibody Not Detected Ehrlichia chaffeenis has been identified as the causative agent of Human Monocytic Ehrlichiosis (HME). Infected indivi duals produce sp ecific antibodies to E. chaffeensis that can be detected by an immuno- fluorescent antibody (IFA) test. Single IgG IFA titers of 1:64 or greater indicate exposure to E. chaffeensis. A fo ur-fold rise in IgG titers between acute and convalescent samples and/or the presence of IgM antibody against E. chaffeensis suggest recent or current infection. This test was developed and its analytic al performance c haracteristics have been determined by [facility], [place], [place]. It has not been cleared or approved by the U.S. Food and Drug Administration. This assay has be en validated pur suant to the CLIA regulations and is used for clinical purposes. REFERENCE RANGE: <1:64 REFERENCE RANGE: <1:20 Antibody Not Detected Anaplasma phagocytophilum is the tick-borne age nt causing Human Granulocytic Ehrlichiosis (HGE). HGE is distinct and separate from Human Monocytic Ehrlichiosis (HME), caused by Ehrlichia chaffeensis. Serologic crossreactivity between A. phagocyto- p hilum and E. lauren ffeensis is minimal (5-15%). This test was developed and its analytical performance characteristics have been determined by [facility] [place], [place]. It has not been cleared or approved by the U.S. Food and Drug Administration. This assay has been validated pursuant to the CLIA regulations and is used for clinical purposes. Test Performed by [facility] [place], [facility], [address] [place] [address] Ronald Abdul M.D., Ph.D., Director of Laboratories , CLIA [id number] TEST PERFORMED AT: , Ordering Provid er: DIMITRI SCRUGGS Report Released Date/Time: Feb 07, 2022 01:33 PM Reporting Lab: [facility] [address] [address] Performing Lab: [facility] [address], [address] [place] [address] E. chaffeensis Ab IgG <1:64 SEE BELO W E. chaffeensis Ab IgM <1:20 SEE BELO W A.phagocytophilum Ab IgG <1:64 SEE B ELOW A.phagocytophilum Ab IgM <1:20 SEE B ELOW EHRLICHIA CHAFFEENSIS AB INTER SEE NOTE A. phagocytophilum inter SEE NOTE Feb 07, 2022 [facility] BABESIA MICROTI, Specimen Type: BLOOD 01:43 PM [facility] DNA PCR(WHV) Comment: The an alytical performance characteristics of this test have been determined by [facility]. It has not been cleared by the FDA. Ordering Provid er: DIMITRI SCRUGGS Report Released Date/Time: Feb 07, 2022 01:29 PM Reporting Lab: [facility] [address] [address] Performing Lab: [facility] [address] [address] BABESIA MICROTI, DNA PCR(WHV) Not Detected Not Detected Feb 07, 2022 [facility] RICKETTSIA ANTIBODY Specimen Ty pe: SERUM 01:43 PM [facility] PANEL (Q) Comment: Test P erformed by eDealyaBetty, [facility]a [facility], [address] [place], [place] Ronald Abdul M.D., Ph.D., Director of Laboratories , CLIA [id number] TEST PERFORMED AT: , Ordering Provid er: DIMITRI SCRUGGS Report Released Date/Time: Feb 07, 2022 01:33 PM Reporting Lab: [facility] [address] [address] Performing Lab: [facility] [address] [place], [address] [place] [address] RMSF IgG Not Detected Not Detected RMSF IgM Not Detected Not Detected R. typhi IgM Not Detected Not Detected Jan [facility] LYME Specimen Type: SERUM 22, [facility] SEROLOGY Comment: The re sults are supportive evidence for the presence of antibodies and exposure to Borrelia burgdorferi. The LYME SEROLOGY PANEL was performed using the FDA-approved Demetrius YINA Borrelia burdor 2021 [facility] PANEL feri modified tw o-tier test system. This modified methodology uses a second EIA in place of a western immunoblot assay, which the FDA has determined is substantially equivalent to or better than stand 01:43 [facility] damaris two-tier aren ting using western blot. Supplemental testing with a second EIA meets CDC guidelines for Lyme disease testing. Performance characteristics of the panel were validated at the [facility] lar Diagnostics Laboratory. Results are considered positive only if the initial screening EIA is positive or equivocal, and either or both supplemental EIAs (for IgM and IgG) are positive. Diagnosis of Lyme disease vale uld not be based solely on laboratory results. Clinical and exposure history must be considered. Positive antibody results reflect prior immunologic exposure, and do not necessarily laron bev active infe ction. False positive results are possible in patients with other spirochetal infections, infectious mononucleosis, and connective tissue disorders. Negative results do not exclude B. bu rgdorferi infect ion. Only 10-40% of patients with erythema migrans alone have detectable antibodies. False negative results are possible, if specimens are drawn too soon after infection before an antibo dy response. Ant ibody induction may be aborted by early antibiotic therapy. Results in immunosuppressed individuals should be interpreted with caution. If Lyme disease is strongly suspected, but antibod y was not detect ed, a second specimen collected about 2-4 weeks after the first should be tested. This test is NOT for use in screening individuals without signs, symptoms or exposure history. Physician s should report all cases of Lyme disease to their state and local health departments, if applicable. The [place] State Form URL is: http://www.ct.gov/dp/dru/dph/infectious_diseases/pdf_forms_/ft19_irhc.pdf Ordering Provid er: DIMITRI SCRUGGS Report Released Date/Time: Feb 07, 2022 07:49 AM Reporting Lab: [facility] [employer] [address] [address] Performing Lab: [facility] [address] [address] TIER 1 LYME SCREENING EIA Presumptive Positive Negative LYME AB FINAL INTERPRETATION POSITIVE HH N egative TIER 2 LYME EIA,IgG Negative Negative TIER 2 LYME EIA,IgM POSITIVE HH Negative Feb 07, 2022 01:43 PM [facility] [place] FOLATE Specimen Type: SERUM HCS No comment enter ed. Ordering Provid er: DIMITRI SCRUGGS Report Released Date/Time: Feb 07, 2022 07:49 AM Reporting Lab: [facility] [place] [facility] [address] [address] Performing Lab: [facility] [facility] [address] [facility] [address] FOLATE 12.99 >5.2 Feb 07, 2022 [facility] C REACTIVE PROTEIN Specimen Typ e: SERUM 01:43 PM [facility]) Comment: Refere nce range changed on 01/07/11 [facility] reference ranges for ages >17 years: hsCRP in mg/L Risk According to AHA/CDC Guidelines <1.0 Lower relative cardiovascular risk. 1.0-3.0 Average c ardiovascular ri sk. 3.1-10.0 Higher cardiovascular risk. Consider retesting in two weeks to exclude a benign transient elevation in the baseline CRP value secondary to infection or inflammation. >10. 0 Persistent aries vation, upon retesting, may be associated with infection and inflammation. Ordering Provid er: DIMITRI SCRUGGS Report Released Date/Time: Feb 07, 2022 01:18 PM Reporting Lab: [facility] [place] [facility] [address] [address] Performing Lab: [facility] [address] [address] C REACTIVE PROTEIN (CRPH) 2.32 See eval. Feb 07, 2022 [facility] [facility] MALARIA/BABESIA EXAM Specimen T ype: BLOOD 01:43 PM [facility] Comment: Due to the cyclical shed rates of these parasites, one negative specimen does not rule out the possibility of a parasitic infection. Obtain specimens at 6-hour intervals for 36 hours for a com prehensive exami nation. Test Performed by eDealyaRonChatsworth, [facility]ostics [facility], [address] [place] [address] Ronald Abdul M.D., Ph.D., Director of Laboratories , [facility] [id number] TEST PERFORMED AT: , Ordering Provid er: DIMITRI SCRUGGS Report Released Date/Time: Feb 07, 2022 01:29 PM Reporting Lab: [facility] [address] [address] Performing Lab: [facility] [address] [place], [address] [facility] [address] MALARIA/BABESIA EXAM Negative Negative Feb 07, 2022 [facility] [facility] CORA SCREEN/TITER Specimen Type: SERUM 01:43 PM [facility] No comment enter ed. Ordering Provid er: DIMITRI SCRUGGS Report Released Date/Time: Feb 07, 2022 01:29 PM Reporting Lab: [facility] [address] [address] Performing Lab: [facility] [address] [address] CORA SCREEN NEG NEG <1:40 Feb 07, 2022 01:43 [facility] VITAMIN B12 Specimen Typ e: SERUM PM [facility] No comment enter ed. Ordering Provid er: DIMITRI SCRUGGS Report Released Date/Time: Feb 07, 2022 07:49 AM Reporting Lab: [facility] [address] [address] Performing Lab: [place] [facility] [address] [address] VITAMIN B12 [phone] Feb 07, 2022 [facility] [facility] SED RATE, AUTOMATED Specimen Ty pe: BLOOD 01:43 PM [facility] No comment enter ed. Ordering Provid er: DIMITRI SCRUGGS Report Released Date/Time: Feb 07, 2022 01:18 PM Reporting Lab: [facility]ITALTRN [facility] [address] [address] Performing Lab: [facility] W[facility]N [facility] [address] [address] SED RATE, AUTOMATED 9 0-15 Feb 07, 2022 [place] [facility] URINALYSIS CLEAN Specimen Type: URINE 01:43 PM [facility] CATCH No comment enter ed. Ordering Provid er: DIMITRI SCRUGGS Report Released Date/Time: Feb 07, 2022 07:50 AM Reporting Lab: [facility] [address] [address] Performing Lab: [place] [facility] [address] [address] UA COLOR Yellow Yellow UA APPEARANCE Clear Clear UA GLUCOSE Negative Negative UA KETONES Negative Neg UA BLOOD Negative Neg UA PROTEIN Negative Neg UA NITRITE Negative Neg UA BILIRUBIN Negative Neg UA SPECIFIC GRAVITY 1.017 1.016-1.02 2 UA pH 6.0 5.0-9.0 UA UROBILINOGEN <2.0 <2.0 UA LEUKOCYTE ESTERASE Negative Neg Feb 07, 2022 [facility] [facility] CBC AND DIFF Specimen Type: BLOOD 01:43 PM [facility] (AUTO) No comment enter ed. Ordering Provid er: DIMITRI SCRUGGS Report Released Date/Time: Feb 07, 2022 07:49 AM Reporting Lab: [facility] [place] [facility] [address] [address] Performing Lab: [facility] [place] [facility] [address] [address] WBC 6.22 4.50-11.00 RBC 5.24 4.23-5.66 HGB 15.7 12.8-17 HCT 44.8 39.2-50.4 MCV 85.5 82-99 MCHC 35.0 30.8-35.1 PLT 390 H 140-360 RDW-CV 11.4 L 12.0-16.0 [place], Abs 0.46 0.30-1.10 MCH 30.0 26.2-32.6 Neut % 60.2 Lymph % 30.1 [place] % 7.4 Eos % 1.1 Baso % 0.6 Neut, Abs 3.74 2.20-7.60 Lymph, Abs 1.87 1.00-3.20 Eos, Abs 0.07 0.03-0.44 Baso, Abs 0.04 0.01-0.13 Immature Gran % 0.6 Immature Gran, Abs 0.04 0.00-0.06 Jan 30, 2022 11:25 [facility] THYROID TOTAL T4 Specimen Ty pe: SERUM AM [facility] No comment enter ed. Ordering Provid er: YINA HAGAN Report Released Date/Time: Jan 30, 2022 10:32 AM Reporting Lab: [facility] [place] [facility] [address] [address] Performing Lab: [facility] [place] [facility] [address] [facility] [address] THYROID TOTAL T4 8.86 4.5-12.0 Jan 30, 2022 [facility] TESTOSTERONE, TOTAL Specimen Ty pe: SERUM 11:25 AM [facility] No comment enter ed. Ordering Provid er: YINA HAGAN Report Released Date/Time: Jan 30, 2022 10:32 AM Reporting Lab: [facility] [place] [facility] [address] [address] Performing Lab: [facility] [address] [facility] [address] TESTOSTERONE, TOTAL 525.91 220.00-892 .00 Jan 30, 2022 [facility] HEMOGLOBIN A1C Specimen Type: BLOOD 11:[address] [facility] PANEL Comment: Values obtained from A1C measurements can vary. For typical A1C assays, a reported value of 7.0 could actually be between 6.72 and 7.28 if measured by a reference method. A reported value of 9 .0 could actuall y be between 8.73 and 9.27. Ref: http://www.ngsp.org/CAPdata.asp Ordering Provid er: YINA HAGAN Report Released Date/Time: Jan 30, 2022 10:32 AM Reporting Lab: [facility] [address] [address] Performing Lab: [address] [address] HEMOGLOBIN A1C 4.6 4.0-5.6 Jan 30, 2022 11:25 [facility] CBC AND DIFF Specimen Typ e: BLOOD AM [facility] (AUTO) No comment enter ed. Ordering Provid er: YINA HAGAN Report Released Date/Time: Jan 30, 2022 10:32 AM Reporting Lab: [facility] [address] [address] Performing Lab: [facility] [address] [address] WBC 2.65 L 4.50-11.00 RBC 5.29 4.23-5.66 HGB 15.7 12.8-17 HCT 46.2 39.2-50.4 MCV 87.3 82-99 MCHC 34.0 30.8-35.1 PLT 152 140-360 RDW-CV 11.5 L 12.0-16.0 MCH 29.7 26.2-32.6 Jan 30, 2022 11:25 [facility] LIPID PANEL FASTING Specimen Type: SERUM AM [facility] No comment enter ed. Ordering Provid er: YINA HAGAN Report Released Date/Time: Jan 30, 2022 10:32 AM Reporting Lab: [facility] [place] [facility] [address] [address] Performing Lab: [facility] [place] [facility] [address] [address] CHOLESTEROL 167 <7-199 TRIGLYCERIDE 112 0-150 LDL calculated 108 0-129 CHOL/HDL 4.5 HDL CHOLESTEROL 37 L 40-60 Jan 30, 2022 [facility] BASIC METABOLIC PANEL Specimen Type: SERUM 11:25 AM [place] [facility] (fasting) No comment enter ed. Ordering Provid er: YINA HAGAN Report Released Date/Time: Jan 30, 2022 10:32 AM Reporting Lab: [facility] [place] [facility] [address] [address] Performing Lab: [place] [facility] [place] [facility] [address] [address] UREA NITROGEN 13 7-25 GLUCOSE 102 H 65-100 SODIUM 135 135-145 POTASSIUM 4.4 3.5-5.0 CHLORIDE 100 100-110 CO2 27 20-30 CREATININE, Serum 1.35 0.50-1.40 eGFR(CKD-EPI 2020) 72 >60 Jan 30, 2022 11:25 [facility] LIVER FUNCTION Specimen Typ e: SERUM AM [place] [facility] No comment enter ed. Ordering Provid er: YINA HAGAN Report Released Date/Time: Jan 30, 2022 10:32 AM Reporting Lab: [facility] [place] [facility] [address] [facility] [address] Performing Lab: [facility] [place] [facility] [address] [address] PROTEIN,TOTAL 7.2 6.0-8.3 ALBUMIN 4.0 3.5-5.0 ALKALINE PHOSPHATASE 57 40-150 AST 37 H 5-34 ALT 36 <6-55 BILIRUBIN, TOTAL 0.9 0.2-1.2 Jan 30, 2022 11:25 AM [facility] [place] TSH Specimen Type: SERUM [facility] No comment enter ed. Ordering Provid er: YINA HAGAN Report Released Date/Time: Jan 30, 2022 10:32 AM Reporting Lab: [facility] [place] [facility] [address] [facility] [address] Performing Lab: [facility] [place] [facility] [address] [facility] [address] TSH 0.82 0.35-5.00 Jan 30, 2022 11:25 [facility] [place] VITAMIN B12 S pecimen Type: SERUM AM HCS No comment enter ed. Ordering Provid er: YINA HAGAN Report Released Date/Time: Jan 30, 2022 10:32 AM Reporting Lab: [facility] [place] [facility] [address] [facility] [facility] [address] Performing Lab: [facility] [place] [facility] [address] [address] VITAMIN B12 354 200-900 Jan 30, 2022 11:25 [facility] VITAMIN D (25-[place]) Specimen T ype: SERUM AM [facility] No comment enter ed. Ordering Provid er: YINA HAGAN Report Released Date/Time: Jan 30, 2022 10:32 AM Reporting Lab: [facility] [place] [facility] [address] [facility] [address] Performing Lab: [facility] [place] [facility] [address] [address] VITAMIN D (25-[place]) 38 20-50 Jan 30, 2022 [facility] MICROSCOPIC AUTOMATED, Specimen Type: URINE 11:25 AM [facility] URINE No comment enter ed. Ordering Provid er: YINA HAGAN Report Released Date/Time: Jan 30, 2022 10:32 AM Reporting Lab: [facility] [place] [facility] [address] [address] Performing Lab: [facility] [place] [facility] [address] [facility] [address] UA WBC 0-5 0-5 UA MUCUS FEW Trace UA RBC 3-5 0-3 Jan 30, 2022 [facility] DIFFERENTIAL, MANUAL Specimen T ype: BLOOD 11:25 AM [facility] Comment: Giant platelets present. SENT FOR PATHOLOGY REVIEW Ordering Provid er: HAGAN,YINA Report Released Date/Time: Jan 30, 2022 10:32 AM Reporting [facility] [address] [address] Performing Lab: [facility] [address] [address] SEGS 47 L 48-78 BANDS 5 0-10 LYMPHS 16 10-55 MONOS 23 H 2-12 VARIANT LYMPHOCYTES 5 0-6 OTHER/CELL 4 Jan 30, 2022 11:25 [facility]cimen Type: URINE AM [facility] No comment enter ed. Ordering Provid er: YINA HAGAN Report Released Date/Time: Jan 30, 2022 10:32 AM Reporting Lab: [facility] [address] [address] Performing Lab: [facility] [address] [address] UA COLOR Yellow Yellow UA APPEARANCE Clear Clear UA GLUCOSE Negative Negative UA KETONES Negative Neg UA BLOOD Moderate Neg UA PROTEIN 30 Neg UA NITRITE Negative Neg UA BILIRUBIN Negative Neg UA SPECIFIC GRAVITY 1.027 H 1.016-1.02 2 UA pH 5.0 5.0-9.0 UA UROBILINOGEN <2.0 <2.0 UA LEUKOCYTE ESTERASE Negative Neg Jan [facility] LYME Specimen Type: SERUM 14, [facility] SEROLOGY Comment: The [facility] SEROLOGY PANEL was performed using the FDA-approved Demetrius YINA Borrelia burdorferi modified two-tier test system. This modified methodology uses a second EIA in place of a western imm 2021 [place] PANEL unoblot assay, [facility] the FDA has determined is substantially equivalent to or better than standard two-tier testing using western blot. Supplemental testing with a second EIA meets CDC guidelines for 11:25 [facility] Lyme disease aren ting. Performance characteristics of the panel were validated at the [facility] [facility]. Results are considered positive only if the initial screening EIA is positive AM or equivocal, a nd either or both supplemental EIAs (for IgM and IgG) are positive. Diagnosis of Lyme disease should not be based solely on laboratory results. Clinical and exposure history must be cons idered. Positive antibody results reflect prior immunologic exposure, and do not necessarily indicate active infection. False positive results are possible in patients with other spirochetal infections, infectious mono nucleosis, and connective tissue disorders. Negative results do not exclude B. burgdorferi infection. Only 10-40% of patients with erythema migrans alone have detectable antibodies. Fals e negative resul ts are possible, if specimens are drawn too soon after infection before an antibody response. Antibody induction may be aborted by early antibiotic therapy. Results in immunosuppressed i ndividuals shoul d be interpreted with caution. If Lyme disease is strongly suspected, but antibody was not detected, a second specimen collected about 2-4 weeks after the first should be tested. This te st is NOT for us e in screening individuals without signs, symptoms or exposure history. Physicians should report all cases of Lyme disease to their state and local health departments, if applicable. The [place] State Form U RL is: http://www.[place].gov/dph/dru/dph/infectious_diseases/pdf_forms_/kc14_xfmd.pdf Ordering Provid er: YINA HAGAN Report Released Date/Time: Feb 03, 2022 12:51 PM Reporting Lab: [place] [facility] [place] [facility] [address] [address] Performing Lab: [place] [facility] [place] [facility] [address] [address] TIER 1 LYME SCREENING EIA Negative Nega tive LYME AB FINAL INTERPRETATION Negative N egative Jan 30, 2022 11:25 [facility] Specimen Type: BLOOD AM [place] [facility] Comment: SEE [id number] Ordering Provid er: YINA HAGAN Report Released Date/Time: Jan 30, 2022 12:51 PM Reporting Lab: [place] [facility] [place] [facility] [address] [address] Performing Lab: [place] [facility] [place] [facility] [address] [address] SMEAR CONSULT ([facility]) comment Vital Signs: All taken on the encounter date This section contains inpatient and outpatient Vital Signs collected on the date of the Encounter. Date/Time Temperature Pulse Blood Respiratory SP02 Pain Height Weight Aleksandr dy Source Pressure Rate Mass Index Jan 30, 102.1 F 91 120/70 20 /min 100 % 7 178 lb 27 [place] 2021 12:13 /min mm[Hg] [facility] PM [facility] [place] [facility] Social History: Smoking Status (Most current) and Tobacco Use (All prior to encounter date) This section includes the most current, and the historical, smoking and tobacco-related health factors from the [place] facility where the Encounter took place.Current Smoking Status This section includes the most current smoking, or tobacco-related health factor, from the [place] facility where the Encounter took place. Date/Time Current Smoking Status Comment Facility May 23, 2021 02:30 PM VA-TOBACCO NEVER USED [place] [facility] Encounter Notes: All associated encounter notes This section contains the clinical notes associated to the Encounter. Date/Time Encounter Note(s) Provider Source Jan 30, 2022 09:05 TELEPHONE ENCOUNTER NOTE: MEG ALDRICH [place] [facility] TITLE: VISN 1 CCC ACTION REQUIRED [facility] STANDARD TITLE: TELEPHONE ENCOUNTER NOTE DATE OF NOTE: JAN 30, 2022@09:05:04 ENTRY DATE: JAN 30, 2022@09:07:10 AUTHOR: MEG ALDRICH [facility] EXP COSIGNER: URGENCY: STATUS: COMPLETED VISN 1 CCC ACTION REQUIRED Has ADDENDA The patient, GEORGE MONTOYA ([id number]) called the call center. Contact Type of call: CLINICAL INFORMATION/EDUCATION. Caller Response: ADM CALL RESOLVED Caller Area: [facility] Provider Info: LOCAL - [place] [facility] ([id number]) PACT: NO PACT 7 (Focus: Primary Care Only) Primary Care Provider: DIMITRI SCRUGGS PH ONE:[phone] Offbearer: TAE CASTILLO PHONE:[phone] Clinical Associate: JODIE FRANCISCO PHONE:[phone] Residential Sales Associate: RYLEE GREER PACT Clinical Pharmacist: SUSSY SANTAMARIA PHONE:[phone] Clinical POC: Offbearer TAE CASTILLO PHONE:[phone] Administrative POC: Residential Sales Associate RYLEE GREER MH: [facility] MHC TEAM ([facility]) Jig Builder ANIVAL DEL ANGEL PHON E:[phone] Author: MEG ALDRICH Comments: called to advise PACT of recent ER visit on January 29, 2022. He has been having rashes on his body th at are hot to the touch. He is in pain where he can not sleep at night and had a fever last night. Please contact to follow up. Evaluation/Management Code: HC PRO PHONE CALL 5- 10 MIN ([phone]). Starting at: 01/30/2022 @ 9:05:04 AM Ending at: 01/30/2022 @ 9:06:15 AM Length: 1 minutes. Chief Complaint: Not applicable to call. Class Code: Other specified counseling. Patient's Email Address: [email or web address] Zonia /ivelisse/ MEG ALDRICH Signed: 01/30/2022 09:07 Receipt Acknowledged By: 01/30/2022 10:24 /ivelisse/ NEDRA ROSS MSN Ed. , BSN BARK SPUDDER NURSE for TAE CASTILLO * AWAITING SIGNATURE * JODIE FRANCISCO 01/30/2022 ADDENDUM STATUS: COMPLETED F: Telephone call D: Vet says that he has a rash on his ba ck, knee, thighs, golf size rash lower back- hot to touch. He has H/A, chills, sweats, Lower Abd pain, lymph node swelling. Negative for Covid. He says th at he went to the [facility] ER. He says that he has been having CP. He asked to come up to si ck call- he was told that he should go to ER. He said soumya t he did go there and nothing was done. He said that he will be here around 1P. He was asked to go to Lab [facility] /ivelisse/ NEDRA ROSS MSN Ed., BSN BARK SPUDDER NURSE Signed: 01/30/2022 10:34 Receipt Acknowledged By: * AWAITING SIGNATURE * DIMITRI SCRUGGS
--- OUTSIDE RECORDS SUMMARY | 2022-04-18 10:02 | XMS_ITS ---
:1990 Author Organization Department [facility] rs Address [address] [place] [address] Support Name Relationship Address Phone TETE TRAN Unavailable [address] [facility] [phone] [address] [place] [address] THOMAS MONTOYA Unavailable [address] [place] [address] Insurance Providers: All historical and current Section [...] Policy Number Ojeda [facility] Aug 03, [id number] [phone] ALIAROSINA Mane 2019 [id number] STEPHANIE JOHNSON [facility] ORGANIZ E DEPT Selected Encounter This section includes the information on record at [place] for the Encounter. Date/Time Encounter Type Encounter Description Reason Provider Source Jan 30, 2022 01:11 Outpatient Encounter EVENT (HISTORICAL) PM IHE Encounter Template Text not used by [facility] Plan of Treatment: Future Appointments (+ 6 months) and Future Tests (+/- 45 days) The Plan of Treatment section includes future care activities for the patient from all [facility] treatmentfacilities. This section includes future appointments and future orders which are active, pending orscheduled.Future Appointments This section includes appointments that were scheduled to occur 6 months from the date of the Encounter, up to a maximum of 20 appointments. The data comes from all [place] treatment facilities. Appointment Date/Time Appointment Type Appointment Facili ty Name Feb 04, 2022 02:15 PM [facility] Feb 06, 2022 04:00 PM AMBULATORY - [...] AMBULATORY - PS[facility]CHIATRY [facility] [place] [facility] Mar 28, 2022 09:00 AM AMBULATORY - PSYCHIATRY [facility] [place] [facility] Apr 17, 2022 01:00 PM AMBULATORY - NONE [facility] [place] [facility] Apr 25, 2022 09:00 AM AMBULATORY - PS[facility]CHIATRY [facility] [place] [facility] May 09, 2022 09:00 AM AMBULATORY - PSYCHIATRY [facility] [place] [facility] May 23, 2022 09:00 AM AMBULATORY - PSYCHIATRY [facility] [place] [facility] Jul 17, 2022 08:30 AM AMBULATORY - NONE [facility] [place] [facility] Lab Results: +/- 30 days of the encounter This section includes the Chemistry and Hematology Lab Results on record with [place] for the patient. Radiology Reports and Pathology Reports are provided separately, in subsequent sections.Lab Results This section contains the Chemistry/Hematology Results that were resulted 30 days before or 30 daysafter the date of the Encounter. Date/Time Source Result Type Result - Unit Interpretation Reference Range Comment Feb 07, 2022 [facility] BRUCELLA ANTIBODY, Specimen Typ e: SERUM 01:43 PM [place] [facility] AGGLUTINATION Comment: REFERE NCE RANGE: <1:80 The [...] performance characteri stics have been determined by [facility]. It has not been cleared or approved by FDA. This assay has been validated pursuant to the CLIA regulations and is used for clinical purposes. Test perfor med by [employer] [facility] [address] [place] [address] Sketcher: Alejandrina Quick MD,PHD,[place] Test performed at [place]. Ordering Provid er: DIMITRI SCRUGGS Report Released Date/Time: Feb 07, 2022 01:27 PM Reporting Lab: [facility] [address] [facility] [address] Performing Lab: [facility] [address] [facility], [address] [facility] [address] BRUCELLA ANTIBODY, AGGLUTINATION <1:80 Feb 07, 2022 [facility] BABESIA MICROTI Specimen Type: SERUM 01:43 PM [facility] ANTIBODIES (IgG, Comment: REFER ENCE RANGE: <1:64 [...] analytical performance characteristics have been determined by [facility] [place], [place]. It has not been cleared or approved by the U.S. Food and Drug A dministration. T his assay has been validated pursuant to the CLIA regulations and is used for clinical purposes. Test Performed by [employer], [employer] [place], [address] [place], [place] Ronald Abdul M.D., Ph.D., Director of Laboratories , CLIA [id number] TEST PERFORMED AT: , Ordering Provid er: DIMITRI SCRUGGS Report Released Date/Time: Feb 07, 2022 01:29 PM Reporting Lab: [facility] [address] [facility] [address] Performing Lab: [facility] [address] [facility] [address], [address] [facility] [address] Babesia microti IgG <1:64 SEE BELOW Babesia microti IgM <1:20 SEE BELOW BABESIA MICROTI AB INTER SEE NOTE Feb 07, 2022 [facility] ANAPLASMA AND Specimen Type: SERUM 01:43 PM [facility] EHRLICHIA AB PANEL Comment: REF ERENCE RANGE: [...] performance c haracteristics have been determined by [facility], [place], [place]. It has not been cleared or [...] analytical performance characteristics have been determined by [facility] [place], [place]. It has not been cleared or approved by the U.S. Food and Drug Administration. This assay has been validated pursuant to the CLIA regulations and is used for clinical purposes. Test Performed by [employer], [employer] [facility], [address] [place] [address] Ronald Abdul M.D., Ph.D., Director of Laboratories , CLIA [id number] TEST PERFORMED AT: , Ordering Provid er: DIMITRI SCRUGGS Report Released Date/Time: Feb 07, 2022 01:33 PM Reporting Lab: [facility] [address] [facility] [address] Performing Lab: [facility] [address] [facility], [address] [place] [address] E. chaffeensis Ab IgG <1:64 SEE BELO W E. chaffeensis Ab IgM <1:20 SEE BELO W A.phagocytophilum Ab IgG <1:64 SEE B ELOW A.phagocytophilum Ab IgM <1:20 SEE B ELOW EHRLICHIA CHAFFEENSIS AB INTER SEE NOTE A. phagocytophilum inter SEE NOTE Feb 07, 2022 [facility] BABESIA MICROTI, Specimen Type: BLOOD 01:43 PM [facility] DNA PCR(V) Comment: The an alytical performance characteristics of this test have been determined by [facility]. It has not been cleared by the FDA. Ordering Provid er: DIMITRI SCRUGGS Report Released Date/Time: Feb 07, 2022 01:29 PM Reporting Lab: [facility] [address] [facility] [address] Performing Lab: [facility] [address] [facility] [address] BABESIA MICROTI, DNA PCR(WHV) Not Detected Not Detected Feb 07, 2022 [facility] RICKETTSIA ANTIBODY Specimen Ty pe: SERUM 01:43 PM [facility] PANEL (Q) Comment: Test P erformed by Betty Tracey [employer] [facility]ali[facility]ah [facility], [address] [place] [address] Ronald Abdul M.D., Ph.D., Director of Laboratories , CLIA [id number] TEST PERFORMED AT: , Ordering Provid er: DIMITRI SCRUGGS Report Released Date/Time: Feb 07, 2022 01:33 PM Reporting Lab: [facility] [address] [facility] [address] Performing Lab: [facility] [address], [address] [facility] [address] RMSF IgG Not Detected Not Detected RMSF IgM Not Detected Not Detected R. typhi IgM Not Detected Not Detected Jan [facility] LYME Specimen Type: SERUM 22, WSTRN SEROLOGY Comment: The re sults are supportive evidence for the presence of antibodies and exposure to Borrelia burgdorferi. The LYME SEROLOGY PANEL was performed using the FDA-approved Demetrius YINA Borrelia burdor 2021 [facility] PANEL feri modified tw o-tier test system. This modified methodology uses a second EIA in place of a western immunoblot assay, which the FDA has determined is substantially equivalent to or better than stand 01:43 [facility] damaris two-tier aren ting using western blot. Supplemental testing with a second EIA meets CDC guidelines for Lyme disease testing. Performance characteristics of the panel were validated at the [facility] lar Diagnostics Laboratory. Results are considered positive [...] and local health departments, if applicable. The [place] State Form URL is: http://www.ct.gov/dph/dru/dph/infectious_diseases/pdf_forms_/kz76_gafp.pdf Ordering Provid er: DIMITRI SCRUGGS Report Released Date/Time: Feb 07, 2022 07:49 AM Reporting Lab: [place] [employer] Video[facility]fTR[facility] [place] [facility] [address] [facility] [address] Performing Lab: [facility] [address] [facility] [address] TIER 1 LYME SCREENING EIA Presumptive Positive Negative LYME AB FINAL INTERPRETATION POSITIVE HH N egative TIER 2 LYME EIA,IgG Negative Negative TIER 2 LYME EIA,IgM POSITIVE HH Negative Feb 07, 2022 01:43 PM [place] [facility] FOLATE Specimen Type: SERUM [facility] No comment enter ed. Ordering Provid er: DIMITRI SCRUGGS Report Released Date/Time: Feb 07, 2022 07:49 AM Reporting Lab: [facility]N [place] [facility] [address] [facility] [address] Performing Lab: [facility] [place] [facility] [address] [address] FOLATE 12.99 >5.2 Feb 07, 2022 [place] [facility] C REACTIVE PROTEIN Specimen Typ e: SERUM 01:43 PM [facility] ([facility]) Comment: Refere nce range changed on 01/07/11 [facility] reference ranges for ages >17 years: hsCRP [...] Feb 07, 2022 01:18 PM Reporting Lab: [facility] [address] [facility] [address] Performing Lab: [facility] [address] [address] C REACTIVE PROTEIN (CRPH) 2.32 See eval. Feb 07, 2022 [facility] MALARIA/BABESIA EXAM Specimen T ype: BLOOD 01:43 PM [facility] Comment: Due to the cyclical shed rates of these parasites, one negative specimen does not rule out the possibility of a parasitic infection. Obtain specimens at 6-hour intervals for 36 hours for a com prehensive exami nation. Test Performed by [employer], [facility], [address] [place] [address] Ronald Abdul M.D., Ph.D., Director of Laboratories , [place] [id number] TEST PERFORMED AT: , Ordering Provid er: DIMITRI SCRUGGS Report Released Date/Time: Feb 07, 2022 01:29 PM Reporting Lab: [facility] [address] [facility] [address] Performing Lab: [facility] [address], [address] [place] [address] MALARIA/BABESIA EXAM Negative Negative Feb 07, 2022 [facility]ITALTRN CORA SCREEN/TITER Specimen Type: SERUM 01:43 PM [facility] No comment enter ed. Ordering Provid er: DIMITRI SCRUGGS Report Released Date/Time: Feb 07, 2022 01:29 PM Reporting Lab: [facility] [address] [facility] [address] Performing Lab: [facility] [address] [address] CORA SCREEN NEG NEG <1:40 Feb 07, 2022 01:43 [place] [facility] VITAMIN B12 Specimen Typ e: SERUM PM [place] [facility] No comment enter ed. Ordering Provid er: DIMITRI SCRUGGS Report Released Date/Time: Feb 07, 2022 07:49 AM Reporting Lab: [facility] W[facility]N [facility] [address] [facility] [address] Performing Lab: [place] [facility] [address] [facility] [address] VITAMIN B12 593 200-900 Feb 07, 2022 [place] [facility] SED RATE, AUTOMATED Specimen Ty pe: BLOOD 01:43 PM [facility] No comment enter ed. Ordering Provid er: DIMITRI SCRUGGS Report Released Date/Time: Feb 07, 2022 01:18 PM Reporting Lab: [facility] W[facility]N [facility] [address] [facility] [address] Performing Lab: [facility] WSTRN [facility] [address] [facility] [address] SED RATE, AUTOMATED 9 0-15 Feb 07, 2022 [place] [facility] CBC AND DIFF Specimen Type: BLOOD 01:43 PM [facility] (AUTO) No comment enter ed. Ordering Provid er: DIMITRI SRCUGGS Report Released Date/Time: Feb 07, 2022 07:49 AM Reporting Lab: [facility] W[facility]N [facility] [address] [facility] [address] Performing Lab: [place] [facility] [address] [facility] [address] WBC 6.22 4.50-11.00 RBC 5.24 4.23-5.66 HGB 15.7 12.8-17 HCT 44.8 39.2-50.4 MCV 85.5 82-99 MCHC 35.0 30.8-35.1 PLT 390 H 140-360 RDW-CV 11.4 L 12.0-16.0 [place], Abs 0.46 0.30-1.10 MCH 30.0 26.2-32.6 Neut % 60.2 Lymph % 30.1 [place] % 7.4 Eos % 1.1 Baso % 0.6 Neut, Abs 3.74 2.20-7.60 Lymph, Abs 1.87 1.00-3.20 Eos, Abs 0.07 0.03-0.44 Baso, Abs 0.04 0.01-0.13 Immature Gran % 0.6 Immature Gran, Abs 0.04 0.00-0.06 Feb 07, 2022 [facility] URINALYSIS CLEAN Specimen Type: URINE 01:43 PM [facility] CATCH No comment enter ed. Ordering Provid er: DIMITRI SCRUGGS Report Released Date/Time: Feb 07, 2022 07:50 AM Reporting Lab: [place] [place] [address] [address] Performing Lab: [place] [facility] [address] [facility] [address] UA COLOR Yellow Yellow UA APPEARANCE Clear Clear UA GLUCOSE Negative Negative UA KETONES Negative Neg UA BLOOD Negative Neg UA PROTEIN Negative Neg UA NITRITE Negative Neg UA BILIRUBIN Negative Neg UA SPECIFIC GRAVITY 1.017 1.016-1.02 2 UA pH 6.0 5.0-9.0 UA UROBILINOGEN <2.0 <2.0 UA LEUKOCYTE ESTERASE Negative Neg Jan 30, 2022 11:25 [facility] THYROID TOTAL T4 Specimen Ty pe: SERUM AM [facility] No comment enter ed. Ordering Provid er: YINA HAGAN Report Released Date/Time: Jan 30, 2022 10:32 AM Reporting Lab: [place] [facility] [place] [facility] [address] [facility] [address] Performing Lab: [place] [facility] [place] [facility] [address] [facility] [facility] [address] THYROID TOTAL T4 8.86 4.5-12.0 Jan 30, 2022 [facility] TESTOSTERONE, TOTAL Specimen Ty pe: SERUM 11:25 AM [facility] No comment enter ed. Ordering Provid er: YINA HAGAN Report Released Date/Time: Jan 30, 2022 10:32 AM Reporting Lab: [place] [facility] [place] [facility] [address] [facility] [address] Performing Lab: [place] [facility] [place] [facility] [address] [facility] [address] TESTOSTERONE, TOTAL 525.91 220.00-892 .00 Jan 30, 2022 11:25 [facility] LIVER FUNCTION Specimen Typ e: SERUM AM [place] [facility] No comment enter ed. Ordering Provid er: YINA HAGAN Report Released Date/Time: Jan 30, 2022 10:32 AM Reporting Lab: [place] [facility] [place] [facility] [address] [facility] [address] Performing Lab: [place] [facility] [place] [facility] [address] [facility] [address] PROTEIN,TOTAL 7.2 6.0-8.3 ALBUMIN 4.0 3.5-5.0 ALKALINE PHOSPHATASE 57 40-150 AST 37 H 5-34 ALT 36 <6-55 BILIRUBIN, TOTAL 0.9 0.2-1.2 Jan 30, 2022 11:25 [facility] CBC AND DIFF Specimen Typ e: BLOOD AM [place] [facility] (AUTO) No comment enter ed. Ordering Provid er: YINA HAGAN Report Released Date/Time: Jan 30, 2022 10:32 AM Reporting Lab: [place] [facility] [place] [facility] [address] [facility] [address] Performing Lab: [place] [facility] [place] [facility] [address] [facility] [address] WBC 2.65 L 4.50-11.00 RBC 5.29 4.23-5.66 HGB 15.7 12.8-17 HCT 46.2 39.2-50.4 MCV 87.3 82-99 MCHC 34.0 30.8-35.1 PLT 152 140-360 RDW-CV 11.5 L 12.0-16.0 MCH 29.7 26.2-32.6 Jan 30, 2022 11:25 [facility] LIPID PANEL FASTING Specimen Type: SERUM [facility] [place] [facility] No comment enter ed. Ordering Provid er: YINA HAGAN Report Released Date/Time: Jan 30, 2022 10:32 AM Reporting Lab: [place] [facility] [place] [facility] [address] [facility] [address] Performing Lab: [facility] [place] [facility] [address] [facility] [address] CHOLESTEROL 167 <7-199 TRIGLYCERIDE 112 0-150 LDL calculated 108 0-129 CHOL/HDL 4.5 HDL CHOLESTEROL 37 L 40-60 Jan 30, 2022 [facility] BASIC METABOLIC PANEL Specimen Type: SERUM 11:25 AM [place] [facility] (fasting) No comment enter ed. Ordering Provid er: YINA HAGAN Report Released Date/Time: Jan 30, 2022 10:32 AM Reporting Lab: [facility] [place] [facility] [address] [facility] [address] Performing Lab: [facility] [place] [facility] [address] [facility] [address] UREA NITROGEN 13 7-25 GLUCOSE 102 H 65-100 SODIUM 135 135-145 POTASSIUM 4.4 3.5-5.0 CHLORIDE 100 100-110 CO2 27 20-30 CREATININE, Serum 1.35 0.50-1.40 eGFR(CKD-EPI 2020) 72 >60 Jan 30, 2022 [facility] HEMOGLOBIN A1C Specimen Type: BLOOD 11:25 AM [place] [facility] PANEL Comment: Values obtained from A1C measurements can vary. For typical A1C assays, a reported value of 7.0 could actually be between 6.72 and 7.28 if measured by a reference method. A reported value of 9 .0 could actuall y be between 8.73 and 9.27. Ref: http://www.ngsp.org/CAPdata.asp Ordering Provid er: YINA HAGAN Report Released Date/Time: Jan 30, 2022 10:32 AM Reporting Lab: [facility] [place] [facility] [address] [facility] [address] Performing Lab: [facility] [place] [facility] [address] [facility] [address] HEMOGLOBIN A1C 4.6 4.0-5.6 Jan 30, 2022 11:25 AM [facility] [place] TSH Specimen Type: SERUM [facility] No comment enter ed. Ordering Provid er: YINA HAGAN Report Released Date/Time: Jan 30, 2022 10:32 AM Reporting Lab: [facility] [place] [facility] [address] [facility] [address] Performing Lab: [facility] [place] [facility] [address] [facility] [address] TSH 0.82 0.35-5.00 Jan 30, 2022 11:25 [place] [facility] VITAMIN B12 S pecimen Type: SERUM AM HCS No comment enter ed. Ordering Provid er: YINA HAGAN Report Released Date/Time: Jan 30, 2022 10:32 AM Reporting Lab: [facility] [place] [facility] [address] [facility] [address] Performing Lab: [facility] [place] [facility] [address] [facility] [address] VITAMIN B12 354 200-900 Jan 30, 2022 11:25 [facility] VITAMIN D (25-[place]) Specimen T ype: SERUM AM [place] [facility] No comment enter ed. Ordering Provid er: YINA HAGAN Report Released Date/Time: Jan 30, 2022 10:32 AM Reporting Lab: [place] [facility] [place] [facility] [address] [facility] [address] Performing Lab: [place] [facility] [place] [facility] [address] [facility] [address] VITAMIN D (25-[place]) 38 20-50 Jan 30, 2022 [facility] DIFFERENTIAL, MANUAL Specimen T ype: BLOOD 11:25 AM [facility] Comment: Giant platelets present. SENT FOR PATHOLOGY REVIEW Ordering Provid er: YINA HAGAN Report Released Date/Time: Jan 30, 2022 10:32 AM Reporting Lab: [place] [facility] [place] [facility] [address] [facility] [address] Performing Lab: [place] [facility] [facility] [address] [facility] [address] SEGS 47 L 48-78 BANDS 5 0-10 LYMPHS 16 10-55 MONOS 23 H 2-12 VARIANT LYMPHOCYTES 5 0-6 OTHER/CELL 4 Jan 30, 2022 [facility] MICROSCOPIC AUTOMATED, Specimen Type: URINE 11:25 AM [facility] URINE No comment enter ed. Ordering Provid er: YINA HAGAN Report Released Date/Time: Jan 30, 2022 10:32 AM Reporting Lab: [facility] [place]N [place] [facility] [address] [facility] [address] Performing Lab: [facility] [address] [facility] [address] UA WBC 0-5 0-5 UA MUCUS FEW Trace UA RBC 3-5 0-3 Jan 30, 2022 11:25 [facility] URINALYSIS S pecimen Type: URINE AM HCS No comment enter ed. Ordering Provid er: BENTLEYYINA Report Released Date/Time: Jan 30, 2022 10:32 AM Reporting Lab: [facility] [address] [facility] [address] Performing Lab: [facility] [address] [facility] [address] UA COLOR Yellow Yellow UA APPEARANCE Clear Clear UA GLUCOSE Negative Negative UA KETONES Negative Neg UA BLOOD Moderate Neg UA PROTEIN 30 Neg UA NITRITE Negative Neg UA BILIRUBIN Negative Neg UA SPECIFIC GRAVITY 1.027 H 1.016-1.02 2 UA pH 5.0 5.0-9.0 UA UROBILINOGEN <2.0 <2.0 UA LEUKOCYTE ESTERASE Negative Neg Jan [facility] LYME Specimen Type: SERUM 14, WSTRN SEROLOGY Comment: The [facility] SEROLOGY PANEL was performed using the FDA-approved Demetrius YINA Borrelia burdorferi modified two-tier test system. This modified methodology uses a second EIA in place of a western imm 2021 [place] PANEL unoblot assay, w [facility] the FDA has determined is substantially equivalent to or better than standard two-tier testing using western blot. Supplemental testing with a second EIA meets CDC guidelines for 11:25 [facility] Lyme disease aren ting. Performance characteristics of the panel were validated at the [place] [facility]. Results are considered [...] and local health departments, if applicable. The [place] State Form U RL is: http://www.ct.gov/dph/dru/dph/infectious_diseases/pdf_forms_/ro73_scrs.pdf Ordering Provid er: BENTLEYYINA Report Released Date/Time: Feb 03, 2022 12:51 PM Reporting Lab: [place] [facility] [facility] [address] [facility] [address] Performing Lab: [place] [facility] [place] [facility] [address] [facility] [address] TIER 1 LYME SCREENING EIA Negative Nega tive LYME AB FINAL INTERPRETATION Negative N egative Jan 30, 2022 11:25 [place] CNT W[facility]N SMEAR CONSULT ([facility]) Specimen Type: BLOOD AM [place] [facility] Comment: SEE [id number] Ordering Provid er: YINA HAGAN Report Released Date/Time: Jan 30, 2022 12:51 PM Reporting Lab: [place] [facility] [facility] [address] [facility] [address] Performing Lab: [place] [facility] [place] [facility] [address] [facility] [address] SMEAR CONSULT ([facility]) comment Vital Signs: All taken on the encounter date This section contains inpatient and outpatient Vital Signs collected on the date of the Encounter. Date/Time Temperature Pulse Blood Respiratory SP02 Pain Height Weight Aleksandr dy Source Pressure Rate Mass Index Jan 30, 102.1 F 91 120/70 20 /min 100 % 7 178 lb 27 [facility] 2021 12:13 /min mm[Hg] CNTRL PM [facility] [place] [facility] Social History: Smoking Status (Most current) and Tobacco Use (All prior to encounter date) This section includes the most current, and the historical, smoking and tobacco-related health factors from the [facility] facility where the Encounter took place.Current Smoking Status This section includes the most current smoking, or tobacco-related health factor, from the [place] facility where the Encounter took place. Date/Time Current Smoking Status Comment Facility May 23, 2021 02:30 PM VA-TOBACCO NEVER USED [facility] C NTRL WSTRN [facility]
--- OUTSIDE RECORDS SUMMARY | 2022-04-18 10:02 | XMS_ITS ---
:1990 Author Organization Department [facility] rs Address [address] [place] [address] Support Name Relationship Address Phone TETE TRAN Unavailable [address] [facility] [phone] [address] [place] [address] THOMAS MONTOYA Unavailable [address] [place] [address] Insurance Providers: All historical and current Section Date Range: From patient's date of to the date document was created.This section includes the names of all active insurance providers for the patient. Insurance Type of Plan Start of End of Group Member Insurance Policy P atient's Provider Coverage Name Policy Policy Number ID Provider's Ojeda's Relationship Coverage Coverage Telephone Name to Policy Number Ojeda [facility] Aug 03, [id number] [phone] ALIAROSINA Mane 2019 [id number] STEPHANIE JOHNSON [facility] ORGANIZ E DEPT Selected Encounter This section includes the information on record at [facility] for the Encounter. Date/Time Encounter Type Encounter Description Reason Provider Source Jan 30, 2022 12:46 Outpatient Encounter PRIMARY CARE/MEDICINE PM IHE Encounter Template Text not used by HI Plan of Treatment: Future Appointments (+ 6 [...] 20 appointments. The data comes from all [facility] treatment facilities. Appointment Date/Time Appointment Type Appointment Facili ty Name Feb 04, 2022 02:15 PM [facility] Feb 06, 2022 04:00 PM AMBULATORY - [...] AMBULATORY - PSYCHIATRY [facility] [place] [facility] Mar 28, 2022 09:00 AM AMBULATORY - PSYCHIATRY [facility] [place] [facility] Apr 17, 2022 01:00 PM AMBULATORY - NONE [facility] [place] [facility] Apr 25, 2022 09:00 AM AMBULATORY - PSYCHIATRY [facility] [place] [facility] May 09, 2022 09:00 AM AMBULATORY - PSYCHIATRY [facility] [place] [facility] May 23, 2022 09:00 AM AMBULATORY - PSYCHIATRY [facility] [place] [facility] Jul 17, 2022 08:30 AM AMBULATORY - NONE [facility] [place] [facility] Lab Results: +/- 30 days of the encounter This section includes the Chemistry and Hematology Lab Results on record with HI for the patient. Radiology Reports and Pathology Reports are provided separately, in subsequent sections.Lab Results This section contains the Chemistry/Hematology Results that were resulted 30 days before or 30 daysafter the date of the Encounter. Date/Time Source Result Type Result - Unit Interpretation Reference Range Comment Feb 07, 2022 [facility] BRUCELLA ANTIBODY, Specimen Typ e: SERUM 01:43 PM [place] [facility] AGGLUTINATION Comment: REFERE NCE RANGE: <1:80 The [...] performance characteri stics have been determined by [employer]. It has not been cleared or approved by FDA. This assay has been validated pursuant to the CLIA regulations and is used for clinical purposes. Test perfor med by [employer] [address] [place] [address] Conveyor Tender: Alejandrina Quick MD,PHD,[place]IE Test performed at [place], [place]. Ordering Provid er: DIMITRI SCRUGGS Report Released Date/Time: Feb 07, 2022 01:27 PM Reporting Lab: [facility] [address] [facility] [address] Performing Lab: [facility] [address] [facility], [address] [facility] [address] BRUCELLA ANTIBODY, AGGLUTINATION <1:80 Feb 07, 2022 [facility] BABESIA MICROTI Specimen Type: SERUM 01:43 PM [facility]CH[facility]EW[facility] ANTIBODIES (IgG, Comment: REFER ENCE RANGE: <1:64 [...] analytical performance characteristics have been determined by [employer] [place], [place]. It has not been cleared or approved by the U.S. Food and Drug A dministration. T his assay has been validated pursuant to the CLIA regulations and is used for clinical purposes. Test Performed by [facility], [place], [address] [place], [place] Ronald Abdul M.D., Ph.D., Director of Laboratories , CLIA [id number] TEST PERFORMED AT: , Ordering Provid er: DIMITRI SCRUGGS Report Released Date/Time: Feb 07, 2022 01:29 PM Reporting Lab: [facility] [address] [facility] [address] Performing Lab: [facility] [address] [facility] [address], [address] [facility] [address] Babesia microti IgG <1:64 SEE BELOW Babesia microti IgM <1:20 SEE BELOW BABESIA MICROTI AB INTER SEE NOTE Feb 07, 2022 [facility] ANAPLASMA AND Specimen Type: SERUM 01:43 PM [facility] EHRLICHIA AB PANEL Comment: REF ERENCE [...] performance c haracteristics have been determined by [facility], [place], [place]. It has not been cleared or [...] analytical performance characteristics have been determined by [employer] [place]. It has not been cleared or approved by the U.S. Food and Drug Administration. This assay has been validated pursuant to the CLIA regulations and is used for clinical purposes. Test Performed by [facility], [facility], [address] [place] [address] Ronald Abdul M.D., Ph.D., Director of Laboratories , CLIA [id number] TEST PERFORMED AT: , Ordering Provid er: DIMITRI SCRUGGS Report Released Date/Time: Feb 07, 2022 01:33 PM Reporting Lab: [facility] [address] [facility] [address] Performing Lab: [facility] [address] [facility], [address] [place] [address] E. chaffeensis Ab IgG <1:64 SEE BELO W E. chaffeensis Ab IgM <1:20 SEE BELO W A.phagocytophilum Ab IgG <1:64 SEE B ELOW A.phagocytophilum Ab IgM <1:20 SEE B ELOW EHRLICHIA CHAFFEENSIS AB INTER SEE NOTE A. phagocytophilum inter SEE NOTE Feb 07, 2022 [facility] BABESIA MICROTI, Specimen Type: BLOOD 01:43 PM [facility] DNA PCR(V) Comment: The an alytical performance characteristics of this test have been determined by [facility]. It has not been cleared by the FDA. Ordering Provid er: DIMITRI SCRUGGS Report Released Date/Time: Feb 07, 2022 01:29 PM Reporting Lab: [facility] [address] [facility] [address] Performing Lab: [facility] [address] [facility] [address] BABESIA MICROTI, DNA PCR(WHV) Not Detected Not Detected Feb 07, 2022 [facility] RICKETTSIA ANTIBODY Specimen Ty pe: SERUM 01:43 PM [facility] PANEL (Q) Comment: Test P erformed by Betty Tracey [facility], [address] [place] [address] Ronald Abdul M.D., Ph.D., Director of Laboratories , CLIA [id number] TEST PERFORMED AT: , Ordering Provid er: DIMITRI SCRUGGS Report Released Date/Time: Feb 07, 2022 01:33 PM Reporting Lab: [facility] [address] [facility] [address] Performing Lab: [facility] [address], [address] [facility] [address] RMSF IgG Not Detected Not Detected RMSF IgM Not Detected Not Detected R. typhi IgM Not Detected Not Detected Jan [facility] LYME Specimen Type: SERUM 22, [facility] SEROLOGY Comment: The re sults are supportive evidence for the presence of antibodies and exposure to Borrelia burgdorferi. The LYME SEROLOGY PANEL was performed using the FDA-approved Demetrius YINA Borrelia burdor 2021 [facility] PANEL feri modified tw o-tier test system. This modified methodology uses a second EIA in place of a western immunoblot assay, which the FDA has determined is substantially equivalent to or better than stand 01:43 [facility] damaris two-tier aren ting using western blot. Supplemental testing with a second EIA meets CDC guidelines for Lyme disease testing. Performance characteristics of the panel were validated at the [facility] lar Diagnostics Laboratory. Results are considered [...] applicable. The [place] State Form URL is: http://www.ct.gov/dph/dru/dph/infectious_diseases/pdf_forms_/el30_wajl.pdf Ordering Provid er: DIMITRI SCRUGGS Report Released Date/Time: Feb 07, 2022 07:49 AM Reporting Lab: [facility] BreakTheCrates.comCHUSETS [facility] [address] [facility] [address] Performing Lab: [facility] [address] [facility] [address] TIER 1 LYME SCREENING EIA Presumptive Positive Negative LYME AB FINAL INTERPRETATION POSITIVE HH N egative TIER 2 LYME EIA,IgG Negative Negative TIER 2 LYME EIA,IgM POSITIVE HH Negative Feb 07, 2022 01:43 PM [facility] [place] FOLATE Specimen Type: SERUM HCS No comment enter ed. Ordering Provid er: DIMITRI SCRUGGS Report Released Date/Time: Feb 07, 2022 07:49 AM Reporting Lab: [facility] [place] [facility] [address] [facility] [address] Performing Lab: [facility] W[place]N [place] [facility] [address] [facility] [address] FOLATE 12.99 >5.2 Feb 07, 2022 [facility] MALARIA/BABESIA EXAM Specimen T ype: BLOOD 01:43 PM [facility] Comment: Due to the cyclical shed rates of these parasites, one negative specimen does not rule out the possibility of a parasitic infection. Obtain specimens at 6-hour intervals for 36 hours for a com prehensive exami nation. Test Performed by Betty Tracey, [facility], [address] [place], [place] Ronald Abdul M.D., Ph.D., Director of Laboratories , [place] [id number] TEST PERFORMED AT: , Ordering Provid er: DIMITRI SCRUGGS Report Released Date/Time: Feb 07, 2022 01:29 PM Reporting Lab: [facility]RN [facility] [address] [facility] [address] Performing Lab: [facility] [address], [address] [place] [address] MALARIA/BABESIA EXAM Negative Negative Feb 07, 2022 [facility]ITALN CORA SCREEN/TITER Specimen Type: SERUM 01:43 PM [facility] No comment enter ed. Ordering Provid er: DIMITRI SCRUGGS Report Released Date/Time: Feb 07, 2022 01:29 PM Reporting Lab: [facility] [address] [facility] [address] Performing Lab: [facility]AMATRN [facility] [address] [facility] [address] CORA SCREEN NEG NEG <1:40 Feb 07, 2022 [facility] C REACTIVE PROTEIN Specimen Typ e: SERUM 01:43 PM [facility] ([facility]) Comment: Refere nce range changed on 01/07/11 [facility] reference ranges for ages >17 years: hsCRP [...] Feb 07, 2022 01:18 PM Reporting Lab: [facility]ATRN [facility] [address] [facility] [address] Performing Lab: [facility] [address] [facility] [address] C REACTIVE PROTEIN (CRPH) 2.32 See eval. Feb 07, 2022 01:43 [facility] VITAMIN B12 Specimen Typ e: SERUM PM [place] [facility] No comment enter ed. Ordering Provid er: DIMITRI SCRUGGS Report Released Date/Time: Feb 07, 2022 07:49 AM Reporting Lab: [facility] [address] [facility] [address] Performing Lab: [facility]EN[facility] AL[facility]AMATRN [facility] [address] [facility] [address] VITAMIN B12 [phone] Feb 07, 2022 [facility] SED RATE, AUTOMATED Specimen Ty pe: BLOOD 01:43 PM [place] [facility] No comment enter ed. Ordering Provid er: DIMITRI SCRUGGS Report Released Date/Time: Feb 07, 2022 01:18 PM Reporting Lab: [facility] [address] [facility] [address] Performing Lab: [facility]ATRN [facility] [address] [facility] [address] SED RATE, AUTOMATED 9 0-15 Feb 07, 2022 [facility] URINALYSIS CLEAN Specimen Type: URINE 01:43 PM [facility] CATCH No comment enter ed. Ordering Provid er: DIMITRI SCRUGGS Report Released Date/Time: Feb 07, 2022 07:50 AM Reporting Lab: [facility]ERRMON[facility] HOSPITALN [facility] [address] [facility] [address] Performing Lab: [facility] AL[facility]AMATRN [facility] [address] [facility] [address] UA COLOR Yellow Yellow UA APPEARANCE Clear Clear UA GLUCOSE Negative Negative UA KETONES Negative Neg UA BLOOD Negative Neg UA PROTEIN Negative Neg UA NITRITE Negative Neg UA BILIRUBIN Negative Neg UA SPECIFIC GRAVITY 1.017 1.016-1.02 2 UA pH 6.0 5.0-9.0 UA UROBILINOGEN <2.0 <2.0 UA LEUKOCYTE ESTERASE Negative Neg Feb 07, 2022 [facility] CBC AND DIFF Specimen Type: BLOOD 01:43 PM [facility] (AUTO) No comment enter ed. Ordering Provid er: DIMITRI SCRUGGS Report Released Date/Time: Feb 07, 2022 07:49 AM Reporting Lab: [facility] [place] [facility] [address] [facility] [address] Performing Lab: [facility] [place] [facility] [address] [facility] [address] WBC 6.22 4.50-11.00 RBC 5.24 4.23-5.66 HGB 15.7 12.8-17 HCT 44.8 39.2-50.4 MCV 85.5 82-99 MCHC 35.0 30.8-35.1 PLT 390 H 140-360 RDW-CV 11.4 L 12.0-16.0 [place], Abs 0.46 0.30-1.10 MCH 30.0 26.2-32.6 Neut % 60.2 Lymph % 30.1 [place] % 7.4 Eos % 1.1 Baso % 0.6 Neut, Abs 3.74 2.20-7.60 Lymph, Abs 1.87 1.00-3.20 Eos, Abs 0.07 0.03-0.44 Baso, Abs 0.04 0.01-0.13 Immature Gran % 0.6 Immature Gran, Abs 0.04 0.00-0.06 Jan 30, 2022 11:25 [facility] THYROID TOTAL T4 Specimen Ty pe: SERUM AM [place] [facility] No comment enter ed. Ordering Provid er: YINA HAGAN Report Released Date/Time: Jan 30, 2022 10:32 AM Reporting Lab: [facility] [place] [facility] [address] [facility] [address] Performing Lab: [facility] [place] [facility] [address] [facility] [address] THYROID TOTAL T4 8.86 4.5-12.0 Jan 30, 2022 [facility] TESTOSTERONE, TOTAL Specimen Ty pe: SERUM 11:25 AM [place] [facility] No comment enter ed. Ordering Provid er: YINA HAGAN Report Released Date/Time: Jan 30, 2022 10:32 AM Reporting Lab: [facility] [facility] [address] [facility] [address] Performing Lab: [facility] [place] [facility] [address] [facility] [address] TESTOSTERONE, TOTAL 525.91 220.00-892 .00 Jan 30, 2022 11:25 [facility] LIVER FUNCTION Specimen Typ e: SERUM AM [place] [facility] No comment enter ed. Ordering Provid er: YINA HAGAN Report Released Date/Time: Jan 30, 2022 10:32 AM Reporting Lab: [facility] [facility] [address] [facility] [address] Performing Lab: [facility] [place] [facility] [address] [facility] [address] PROTEIN,TOTAL 7.2 6.0-8.3 ALBUMIN 4.0 3.5-5.0 ALKALINE PHOSPHATASE 57 40-150 AST 37 H 5-34 ALT 36 <6-55 BILIRUBIN, TOTAL 0.9 0.2-1.2 Jan 30, 2022 [facility] HEMOGLOBIN A1C Specimen Type: BLOOD 11:25 AM [place] [facility] PANEL Comment: Values obtained from A1C measurements can vary. For typical A1C assays, a reported value of 7.0 could actually be between 6.72 and 7.28 if measured by a reference method. A reported value of 9 .0 could actuall y be between 8.73 and 9.27. Ref: http://www.ngsp.org/CAPdata.asp Ordering Provid er: YINA HAGAN Report Released Date/Time: Jan 30, 2022 10:32 AM Reporting Lab: [facility] [facility] [address] [facility] [address] Performing Lab: [facility] [facility] [address] [facility] [address] HEMOGLOBIN A1C 4.6 4.0-5.6 Jan 30, 2022 11:25 [facility] LIPID PANEL FASTING Specimen Type: SERUM AM [place] [facility] No comment enter ed. Ordering Provid er: YINA HAGAN Report Released Date/Time: Jan 30, 2022 10:32 AM Reporting Lab: [facility] [place] [facility] [address] [facility] [address] Performing Lab: [facility] [place] [facility] [address] [facility] [address] CHOLESTEROL 167 <7-199 TRIGLYCERIDE 112 0-150 LDL calculated 108 0-129 CHOL/HDL 4.5 HDL CHOLESTEROL 37 L 40-60 Jan 30, 2022 [facility] BASIC METABOLIC PANEL Specimen Type: SERUM 11:25 AM [place] [facility] (fasting) No comment enter ed. Ordering Provid er: YINA HAGAN Report Released Date/Time: Jan 30, 2022 10:32 AM Reporting Lab: [facility] [place] [facility] [address] [facility] [address] Performing Lab: [facility] [place] [facility] [address] [facility] [address] UREA NITROGEN 13 7-25 GLUCOSE 102 H 65-100 SODIUM 135 135-145 POTASSIUM 4.4 3.5-5.0 CHLORIDE 100 100-110 CO2 27 20-30 CREATININE, Serum 1.35 0.50-1.40 eGFR(CKD-EPI 2020) 72 >60 Jan 30, 2022 11:25 [facility] CBC AND DIFF Specimen Typ e: BLOOD AM [place] [facility] (AUTO) No comment enter ed. Ordering Provid er: YINA HAGAN Report Released Date/Time: Jan 30, 2022 10:32 AM Reporting Lab: [facility] [place] [facility] [address] [facility] [address] Performing Lab: [facility] [place] [facility] [address] [facility] [address] WBC 2.65 L 4.50-11.00 RBC 5.29 4.23-5.66 HGB 15.7 12.8-17 HCT 46.2 39.2-50.4 MCV 87.3 82-99 MCHC 34.0 30.8-35.1 PLT 152 140-360 RDW-CV 11.5 L 12.0-16.0 MCH 29.7 26.2-32.6 Jan 30, 2022 11:25 AM [facility] [place] TSH Specimen Type: SERUM HCS No comment enter ed. Ordering Provid er: YINA HAGAN Report Released Date/Time: Jan 30, 2022 10:32 AM Reporting Lab: [facility] [place] [facility] [address] [facility] [address] Performing Lab: [facility] [place] [facility] [address] [facility] [address] TSH 0.82 0.35-5.00 Jan 30, 2022 11:25 [facility] [place] VITAMIN B12 S pecimen Type: SERUM AM HCS No comment enter ed. Ordering Provid er: YINA HAGAN Report Released Date/Time: Jan 30, 2022 10:32 AM Reporting Lab: [facility] [place] [facility] [address] [facility] [address] Performing Lab: [place] [facility] [facility] [address] [facility] [address] VITAMIN B12 354 200-900 Jan 30, 2022 11:25 [facility] VITAMIN D (25-[place]) Specimen T ype: SERUM AM [facility] No comment enter ed. Ordering Provid er: YINA HAGAN Report Released Date/Time: Jan 30, 2022 10:32 AM Reporting Lab: [facility] [place] [facility] [address] [facility] [address] Performing Lab: [place] [facility] [facility] [address] [facility] [address] VITAMIN D (25-[place]) 38 20-50 Jan 30, 2022 [facility] MICROSCOPIC AUTOMATED, Specimen Type: URINE 11:25 AM [facility] URINE No comment enter ed. Ordering Provid er: YINA HAGAN Report Released Date/Time: Jan 30, 2022 10:32 AM Reporting Lab: [facility] [place] [facility] [address] [facility] [address] Performing Lab: [place] [facility] [place] [facility] [address] [facility] [address] UA WBC 0-5 0-5 UA MUCUS FEW Trace UA RBC 3-5 0-3 Jan 30, 2022 [facility] DIFFERENTIAL, MANUAL Specimen T ype: BLOOD 11:25 AM [facility] Comment: Giant platelets present. SENT FOR PATHOLOGY REVIEW Ordering Provid er: YINA HAGAN Report Released Date/Time: Jan 30, 2022 10:32 AM Reporting Lab: [facility] WSTRN [place] [facility] [address] [facility] [address] Performing Lab: [facility] [address] [facility] [address] SEGS 47 L 48-78 BANDS 5 0-10 LYMPHS 16 10-55 MONOS 23 H 2-12 VARIANT LYMPHOCYTES 5 0-6 OTHER/CELL 4 Jan 30, 2022 11:25 [facility] URINALYSIS S pecimen Type: URINE AM HCS No comment enter ed. Ordering Provid er: BENTLEY,YINA Report Released Date/Time: Jan 30, 2022 10:32 AM Reporting Lab: [facility] [address] [facility] [address] Performing Lab: [facility] [address] [facility] [address] UA COLOR Yellow Yellow UA APPEARANCE Clear Clear UA GLUCOSE Negative Negative UA KETONES Negative Neg UA BLOOD Moderate Neg UA PROTEIN 30 Neg UA NITRITE Negative Neg UA BILIRUBIN Negative Neg UA SPECIFIC GRAVITY 1.027 H 1.016-1.02 2 UA pH 5.0 5.0-9.0 UA UROBILINOGEN <2.0 <2.0 UA LEUKOCYTE ESTERASE Negative Neg Jan [facility] LYME Specimen Type: SERUM 14, W[facility] SEROLOGY Comment: The [facility] SEROLOGY PANEL was performed using the FDA-approved Demetrius YINA Borrelia burdorferi modified two-tier test system. This modified methodology uses a second EIA in place of a western imm 2021 [place] PANEL unoblot assay, w [facility] the FDA has determined is substantially equivalent to or better than standard two-tier testing using western blot. Supplemental testing with a second EIA meets CDC guidelines for 11:25 [facility] Lyme disease aren ting. Performance characteristics of the panel were validated at the [place] [facility]. Results are considered [...] and local health departments, if applicable. The [place] State Form U RL is: http://www.ct.gov/dph/dru/dph/infectious_diseases/pdf_forms_/vo12_aafc.pdf Ordering Provid er: BENTLEYYINA Report Released Date/Time: Feb 03, 2022 12:51 PM Reporting Lab: [facility] [place] [facility] [address] [facility] [address] Performing Lab: [facility] [place] [facility] [address] [facility] [address] TIER 1 LYME SCREENING EIA Negative Nega tive LYME AB FINAL INTERPRETATION Negative N egative Jan 30, 2022 11:25 HI CNT [facility]N SMEAR CONSULT ([facility]) Specimen Type: BLOOD AM [place] [facility] Comment: SEE [id number] Ordering Provid er: YINA HAGAN Report Released Date/Time: Jan 30, 2022 12:51 PM Reporting Lab: [facility] [place] [facility] [address] [facility] [address] Performing Lab: [facility] [place] [facility] [address] [facility] [id number] [facility] CONSULT ([facility]) comment Vital Signs: All taken on the [...] smoking and tobacco-related health factors from the [facility] facility where the Encounter took place.Current Smoking Status This section includes the most current smoking, or tobacco-related health factor, from the [place] facility where the Encounter took place. Date/Time Current Smoking Status Comment Facility May 23, 2021 02:30 PM VA-TOBACCO NEVER USED [facility] Encounter Notes: All associated encounter notes This section contains the clinical notes associated to the Encounter. Date/Time Encounter Note(s) Provider Source Jan 30, 2022 12:46 ADMINISTRATIVE NOTE: [facility] LOC[facility] TITLE: ADMINISTRATIVE NOTE [facility] STANDARD TITLE: ADMINISTRATIVE NOTE DATE OF NOTE: JAN 30, 2022@12:46 ENTRY DATE: JAN 30, 2022@12:46:43 AUTHOR: KAYLA OROURKE EXP COSIGNER: URGENCY: STATUS: COMPLETED GEORGE MONTOYA is a 31 yo MALE who is being sent to the Emergency Department for asses sment and care. This has been authorized by DIMITRI SCRUGGS Pt. has a history of: Active problems - Computerized Problem List is t he source for the followin. Bilateral shoulder joint pain 2. 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 Low back pain 6. Benign hypertension 7. Posttraumatic stress disorder (SNOMED [place] [id number]) Active Outpatient Medications (including Supplie s): Active Outpatient Medications Status 1) BUPROPION 150MG 24HR XL TAB (ONCE DAILY) TAKE THREE ACTIVE TABLETS BY MOUTH EVERY MORNING FOR DEPRESSION/ANXIETY DOSE INCREASE 2) CARBOXYMETHYLCELLULOSE 0.5% OPH SOLN INSTILL 1 DROP ACTIVE INTO EACH EYE FOUR TIMES A DAY 3) ESCITALOPRAM OXALATE 20MG TAB TAKE ONE TABLET BY ACTIVE MOUTH EVERY MORNING FOR MOOD/DEPRESSION 4) GABAPENTIN 400MG CAP TAKE ONE CAPSULE BY MOUT H FOUR ACTIVE TIMES A DAY FOR ANXIETY. 5) LORAZEPAM 1MG TAB TAKE ONE TABLET BY MOUTH ON CE DAILY ACTIVE NEEDED FOR ANXIETY/NERVES 6) PRAZOSIN HCL 2MG CAP TAKE FOUR CAPSULES BY MO UTH AT ACTIVE BEDTIME - OFF LABEL USE FOR PTSD SYMPTOMS. DOSE INCREASE FROM 6 MG. 7) SODIUM FLUORIDE 1.1% TOOTHPASTE BRUSH SMALL A MOUNT TO ACTIVE TEETH AT BEDTIME DIRECTED FOR TWO MINUTES, I N PLACE OF YOUR REGULAR TOOTHPASTE. AFTER USE, SP IT OUT. FOR PREVENTION OF DENTAL CARIES AND SENSITIVITY. 8) TRAZODONE HCL 100MG TAB TAKE ONE AND ONE-HALF TABLETS ACTIVE BY MOUTH AT BEDTIME NEEDED FOR SLEEP Allergies: Patient has answered NKA RECENT VITAL SIGNS Blood Pressure: 120/70 (01/30/2022 12:13) Pain: 7 (01/30/2022 12:13) Patient Height: 68 in [172.7 cm] (08/07/2021 10: 58) Patient Weight: 178 lb [80.74 kg] (01/30/2022 12 :13) Pulse: 91 (01/30/2022 12:13) Respiration: 20 (01/30/2022 12:13) Temperature: 102.1 F [38.9 C] (01/30/2022 12:13) Pulse Ox: Measurement DT POx (L/MIN)(%) 01/30/2022 12:13 100 IMMUNIZATION HX PCE IMMUNIZATIONS Immunization Series Date Facility Reaction Info COVID-19 (MODERNA), MRNA, LNP-S,* 2 05/31/2021 [facility] <C> 1 05/03/2021 [facility] <C> DTAP, UNSPECIFIED FORMULATION No Site No Site INFLUENZA, INJECTABLE, QUADRIVALE* 08/07/2021 [facility] 08/03/2019 [facility]* <C> <C> See the Detailed Immunizations Health Summar y Component[DIM] for Comments PPD TESTING Labs PPDST - Skin Tests No data available RECENT IMAGING Include data from 01/30/2021 to 01/30/202201/30 12:46 CONFIDENTIAL IMAGING REPORTS VASQUES KATI pg. 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 Comparison: None. Findings: No acute displaced fracture or dislocation. No significant degenerative changes in the acromioclavicular j oints. Glenohumeral joints are normal. Visualized ribs are intact. Included lungs are clear. No soft tissue abnorm ality identified. Impression: 1. Unremarkable bilateral shoulders. READING PHYSICIAN: Adriel Mcfarland M.D. -[id number] 09 09/05/2020 15:17 [facility] Teleradiology Program [phone] (For Medical Practitioner Use Only ) [address] [facility], [facility] [address], [place] [address] Attention Patients / Veterans: If you have ques tions or concerns about these test results, please conta ct your ordering provider or primary care team. 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 Comparison: None. Findings: No acute displaced fracture or dislocation. No significant degenerative changes in the acromioclavicular j oints. Glenohumeral joints are normal. Visualized ribs are intact. Included lungs are clear. No soft tissue abnorm ality identified. Impression: 1. Unremarkable bilateral shoulders. READING PHYSICIAN: Adriel Mcfarland M.D. -[id number] 09 09/05/2020 15:17 [facility] National Teleradiology Program [phone] (For Medical Practitioner Use Only ) [address] [facility], [facility] [address], [address] [address] Attention Patients / Veterans: If you have ques tions or concerns about these test results, please conta ct your ordering provider or primary care team. DX Codes: NO ALERT REQUIRED 05/13/2013 ULTRASOUND KIDNEYS CPT Code: 63566 ULTRASOUND URINARY BLADDER CPT Code: 16568 Interpreting Staff: CLARENCE RODRIGUEZ Exam Case Number: [id number] Exam Status: COMPLETE Rpt Status: VERIFIED Technologist: MIRIAM CORTES Reason for Study: H/O Cysts R Kidney History: are prob. benign Cysts per US in early 2012 was not abk e to f/u w/ any Tx (if was evem needed) does have H/O essential HTN plesas eval than you Report: Renal and bladder ultrasound: History of right renal cysts. No prior studies in the system. Real-time ultrasound reveals right kidney measu res 13.6 cm. Left kidney measures 12.3 cm. Right kidney has numerous anechoic objects with the largest located in th e upper pole measuring 6.5 x 6.5 x 6.7 cm. These objects do not definitely connect and are thus presumed to be the renal c ysts mentioned in the history rather than hydronephrosis. Norm al left kidney without hydronephrosis. Prostate line is normal at 26 mL. Bladder appea rs unremarkable and bilateral ureteric jets are observed. No bl adder stones. Pre-void bladder volume is 159 mL. Postvoid vol ume is 22 mL. Impression: Right kidney has multiple cysts that do not def initely connect consistent with history of multiple renal cysts rather than hydronephrosis. Normal left kidney. Unremarkabl e bladder. Very small postvoid residual. DX Codes: No immediate attention required 05/09/2013 SPINE LUMBOSACRAL MIN 2 VIEWS CPT Code: 75189 Interpreting Staff: CLARENCE RODRIGUEZ Exam Case Number: [id number] Exam Status: COMPLETE Rpt Status: VERIFIED Technologist: MISBAH GALAVIZ Reason for Study: lbp, History: hypertension Report: Lumbosacral spine: Low back pain. AP and lateral views without previous reveal sl ight curve of the lumbar spine convex to the left which could be positional. There are 5 nonrib-bearing lumbar vertebra with out fracture, spondylolysis or spondylolisthesis. Slight decr eased anterior height of T11, T12 and L1 is likely an anatomic variant. Normal bone mineralization. Unremarkable facet and SI joints. Disc space height is preserved at all levels. N ormal surrounding soft tissues. Impression: Slight curve of the lumbar spine convex to left may be positional. Otherwise unremarkable study. DX Codes: No immediate attention required RECENT LABS Collection DT Spec WBC HGB HCT PLT K+/Pot Sodium HGBA1c 01/30/2022 11:25 BLOOD 4.6 01/30/2022 11:25 BLOOD 2.65 L 15.7 46.2 152 08/07/2021 11:28 BLOOD 4.7 08/07/2021 11:28 BLOOD 4.66 16.3 47.2 247 08/07/2021 11:28 SERUM 4.3 139 Collection DT Spec GLUCOSE CREATIN AST ALT T DOREEN I ALK TERRENCE CHOL 08/07/2021 11:28 SERUM 81 1.18 26 27 1.0 62 191 08/31/2020 11:15 SERUM 77 1.19 26 38 0.7 63 171 07/04/2020 15:53 SERUM 91 1.25 41 H 82 H 0.6 67 08/23/2019 11:41 SERUM 89 1.39 22 24 1.4 H 63 19 0 06/07/2018 10:05 SERUM 61 L 1.30 19 19 1.0 56 18 4 Collection DT Spec LDL-c HDL TRIG TSH B12 VIT D2 5 HIV Ag/ 08/07/2021 11:28 SERUM 125 44 110 0.48 409 34 08/31/2020 11:15 SERUM NON- REACTIVE 08/31/2020 11:15 SERUM 113 43 76 0.60 27 08/23/2019 11:41 SERUM 129 42 93 0.42 06/07/2018 10:05 SERUM 119 42 113 0.76 32 Collection DT Spec RBC/HPF 01/30/2022 11:25 URINE 3-5 PATIENT DEMOGRAPHICS Address: [address] [facility] Phone: [place] [address] County: [place] Marital Status: Age: 31 Christianity: PROTESTANT (NON-SPECIFIC) Sex: MALE 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 EMERGENCY ROOMS Emergency Room FAX # Tel # [facility] Bo [phone] [facility] [phone] 2 [facility] Wing [phone] [facility] [phone] [place] [phone] 2 [facility] [phone] 1 [place] [phone] 3 /ivelisse/ KAYLA BLANDON Signed: 01/30/2022 12:47
--- OUTSIDE RECORDS SUMMARY | 2022-04-18 10:02 | XMS_ITS ---
:1990 Author Organization Department [facility] rs Address [address] [place] [address] Support Name Relationship Address Phone TETE TRAN Unavailable [address] [facility] [phone] 3 [place] [address] THOMAS MONTOYA Unavailable [address] [facility] [place] [address] Insurance Providers: All historical and current Section Date Range: From patient's date of to the date document was created.This section includes the names of all active insurance providers for the patient. Insurance Type of Plan Start of End of Group Member Insurance Policy P atient's Provider Coverage Name Policy Policy Number ID Provider's Ojeda's Relationship Coverage Coverage Telephone Name to Policy Number Ojeda [facility] Aug 03, [id number] [id number] ROSINA CALLAHAN 2019 [id number] [facility] ORGANIZ E DEPT Selected Encounter This section includes the information on record at [place] for the Encounter. Date/Time Encounter Type Encounter Description Reason Provider Source Jan 30, 2022 01:33 Outpatient Encounter TELEPHONE CASE PM MANAGEMENT IHE Encounter Template Text not used by [...] 04, 2022 02:15 PM [facility] Feb 06, 2022 04:00 PM AMBULATORY - [facility]IATRY [facility] [place] [facility] Feb 07, 2022 01:00 PM AMBULATORY - [...] AMBULATORY - PSYCHIATRY [facility] [place] [facility] Mar 28, 2022 09:00 AM AMBULATORY - PSYCHIATRY [facility] [place] [facility] Apr 17, 2022 01:00 PM AMBULATORY - NONE [facility] [place] [facility] Apr 25, 2022 09:00 AM AMBULATORY - PSYCHIATRY [facility] [place] [facility] May 09, 2022 09:00 AM AMBULATORY - PSYCHIATRY [facility] [place] [facility] May 23, 2022 09:00 AM AMBULATORY - PSYCHIATRY [facility] [place] [facility] Jul 17, 2022 08:30 AM AMBULATORY - NONE [facility] [place] [facility] Lab Results: +/- 30 days of the encounter This section includes the Chemistry and Hematology Lab Results on record with [facility] for the patient. Radiology Reports and Pathology Reports are provided separately, in subsequent sections.Lab Results This section contains the Chemistry/Hematology Results that were resulted 30 days before or 30 daysafter the date of the Encounter. Date/Time Source Result Type Result - Unit Interpretation Reference Range Comment Feb 07, 2022 [facility] BRUCELLA ANTIBODY, Specimen Typ e: SERUM 01:43 PM [place] [facility] AGGLUTINATION Comment: REFERE NCE RANGE: <1:80 [...] performance characteri stics have been determined by [employer]. It has not been cleared or approved by FDA. This assay has been validated pursuant to the CLIA regulations and is used for clinical purposes. Test perfor med by [employer] [facility] [address] [place] [address] Electrochemist: Alejandrina Quick MD,PHD,[place] Test performed at [place], [place]. Ordering Provid er: DIMITRI SCRUGGS Report Released Date/Time: Feb 07, 2022 01:27 PM Reporting Lab: [facility] [address] [facility] [address] Performing Lab: [facility] [place] [facility] [address] [facility], [address] [facility] [address] BRUCELLA ANTIBODY, AGGLUTINATION <1:80 Feb 07, 2022 [facility] BABESIA MICROTI Specimen Type: SERUM 01:43 PM [facility]ST[facility] ANTIBODIES (IgG, Comment: REFER ENCE RANGE: [...] analytical performance characteristics have been determined by [employer] [place], [place]. It has not been cleared or approved by the U.S. Food and Drug A dministration. T his assay has been validated pursuant to the CLIA regulations and is used for clinical purposes. Test Performed by [employer] [place], [employer] [place], [address] [address] arrow[address] campuseileen jeffrey[place], [place] Ronald Abdul M.D., Ph.D., Director of Laboratories , CLIA [id number] TEST PERFORMED AT: , Ordering Provid er: DIMITRI SCRUGGS Report Released Date/Time: Feb 07, 2022 01:29 PM Reporting Lab: [facility] [address] [facility] [address] Performing Lab: [facility] [address] [facility] [address] [place], [address] [facility] [address] Babesia microti IgG <1:64 SEE BELOW Babesia microti IgM <1:20 SEE BELOW BABESIA MICROTI AB INTER SEE NOTE Feb 07, 2022 [facility] ANAPLASMA AND Specimen Type: SERUM 01:43 PM [facility] EHRLICHIA AB PANEL Comment: REF ERENCE [...] performance c haracteristics have been determined by [facility], [place], [place]. It has not been cleared or [...] analytical performance characteristics have been determined by [employer] [place], [place]. It has not been cleared or approved by the U.S. Food and Drug Administration. This assay has been validated pursuant to the CLIA regulations and is used for clinical purposes. Test Performed by [facility], [employer] [facility], [address] [place] [address] Ronald Abdul M.D., Ph.D., Director of Laboratories , CLIA [id number] TEST PERFORMED AT: , Ordering Provid er: DIMITRI SCRUGGS Report Released Date/Time: Feb 07, 2022 01:33 PM Reporting Lab: [facility] [address] [facility] [address] Performing Lab: [facility] [address] [facility], [address] [place] [address] E. chaffeensis Ab IgG <1:64 SEE BELO W E. chaffeensis Ab IgM <1:20 SEE BELO W A.phagocytophilum Ab IgG <1:64 SEE B ELOW A.phagocytophilum Ab IgM <1:20 SEE B ELOW EHRLICHIA CHAFFEENSIS AB INTER SEE NOTE A. phagocytophilum inter SEE NOTE Feb 07, 2022 [facility] BABESIA MICROTI, Specimen Type: BLOOD 01:43 PM [facility] DNA PCR(V) Comment: The an alytical performance characteristics of this test have been determined by [facility]. It has not been cleared by the FDA. Ordering Provid er: DIMITRI SCRUGGS Report Released Date/Time: Feb 07, 2022 01:29 PM Reporting Lab: [facility] [address] [facility] [address] Performing Lab: [facility] [address] [facility] [address] BABESIA MICROTI, DNA PCR(WHV) Not Detected Not Detected Feb 07, 2022 [facility] RICKETTSIA ANTIBODY Specimen Ty pe: SERUM 01:43 PM [facility] PANEL (Q) Comment: Test P erformed by Betty Tracey [employer] Aaliyah [facility], [address] [place], [place] Ronald Abdul M.D., Ph.D., Director of Laboratories , CLIA [id number] TEST PERFORMED AT: , Ordering Provid er: DIMITRI SCRUGGS Report Released Date/Time: Feb 07, 2022 01:33 PM Reporting Lab: [facility] [address] [facility] [address] Performing Lab: [facility] [address] [place], [address] [facility] [address] RMSF IgG Not Detected Not Detected RMSF IgM Not Detected Not Detected R. typhi IgM Not Detected Not Detected Jan [facility] LYME Specimen Type: SERUM 22, WSTRN SEROLOGY Comment: The re sults are supportive evidence for the presence of antibodies and exposure to Borrelia burgdorferi. The LYME SEROLOGY PANEL was performed using the FDA-approved Demetrius YINA Borrelia burdor 2021 [facility] PAN[facility] feri modified tw o-tier test system. This modified methodology uses a second EIA in place of a western immunoblot assay, which the FDA has determined is substantially equivalent to or better than stand 01:43 [facility] damaris two-tier aren ting using western blot. Supplemental testing with a second EIA meets CDC guidelines for Lyme disease testing. Performance characteristics of the panel were validated at the [facility]. Results are considered [...] and local health departments, if applicable. The [place] State Form URL is: http://www.ct.gov/dph/dru/dph/infectious_diseases/pdf_forms_/qs41_kiuv.pdf Ordering Provid er: DIMITRI SCRUGGS Report Released Date/Time: Feb 07, 2022 07:49 AM Reporting Lab: [place] [facility] SYLOBTRN [place] [facility] [address] [facility] [address] Performing Lab: [facility] [address] [facility] [address] TIER 1 LYME SCREENING EIA Presumptive Positive Negative LYME AB FINAL INTERPRETATION POSITIVE HH N egative TIER 2 LYME EIA,IgG Negative Negative TIER 2 LYME EIA,IgM POSITIVE HH Negative Feb 07, 2022 01:43 PM [place] [facility] [place] [place] FOLATE Specimen Type: SERUM HCS No comment enter ed. Ordering Provid er: DIMITRI SCRUGGS Report Released Date/Time: Feb 07, 2022 07:49 AM Reporting Lab: [facility] [place] [facility] [address] [facility] [address] Performing Lab: [facility] [place] [facility] [address] [facility] [address] FOLATE 12.99 >5.2 Feb 07, 2022 [place] [facility] C REACTIVE PROTEIN Specimen Typ e: SERUM 01:43 PM [facility] ([facility]) Comment: Refere nce range changed on 01/07/11 [facility] reference ranges for ages >17 years: hsCRP [...] Feb 07, 2022 01:18 PM Reporting Lab: [facility] [address] [facility] [address] Performing Lab: [facility] [address] [facility] [address] C REACTIVE PROTEIN (CRPH) 2.32 See eval. Feb 07, 2022 [facility] MALARIA/BABESIA EXAM Specimen T ype: BLOOD 01:43 PM [facility] Comment: Due to the cyclical shed rates of these parasites, one negative specimen does not rule out the possibility of a parasitic infection. Obtain specimens at 6-hour intervals for 36 hours for a com prehensive exami nation. Test Performed by [facility], [employer] [facility], [address] [place] [address] Ronald Abdul M.D., Ph.D., Director of Laboratories , [facility] [id number] TEST PERFORMED AT: , Ordering Provid er: DIMITRI SCRUGGS Report Released Date/Time: Feb 07, 2022 01:29 PM Reporting Lab: [facility] [address] [facility] [address] Performing Lab: [facility] [address] [place], [address] [place] [address] MALARIA/BABESIA EXAM Negative Negative Feb 07, 2022 [facility] W[facility]N CORA SCREEN/TITER Specimen Type: SERUM 01:43 PM [facility] No comment enter ed. Ordering Provid er: DIMITRI SCRUGGS Report Released Date/Time: Feb 07, 2022 01:29 PM Reporting Lab: [facility] [address] [facility] [address] Performing Lab: [facility] [address] [facility] [address] CORA SCREEN NEG NEG <1:40 Feb 07, 2022 01:43 [facility] VITAMIN B12 Specimen Typ e: SERUM PM [place] [facility] No comment enter ed. Ordering Provid er: DIMITRI SCRUGGS Report Released Date/Time: Feb 07, 2022 07:49 AM Reporting Lab: [facility] [place] [facility] [address] [facility] [address] Performing Lab: [place] [facility] [facility] [address] [facility] [address] VITAMIN B12 [phone] Feb 07, 2022 [place] [facility] SED RATE, AUTOMATED Specimen Ty pe: BLOOD 01:43 PM [place] [facility] No comment enter ed. Ordering Provid er: DIMITRI SCRUGGS Report Released Date/Time: Feb 07, 2022 01:18 PM Reporting Lab: [facility] W[facility]N [facility] [address] [facility] [address] Performing Lab: [place] [facility] [facility] [address] [facility] [address] SED RATE, AUTOMATED 9 0-15 Feb 07, 2022 [facility] URINALYSIS CLEAN Specimen Type: URINE 01:43 PM [place] [facility] CATCH No comment enter ed. Ordering Provid er: DIMITRI SCRUGGS Report Released Date/Time: Feb 07, 2022 07:50 AM Reporting Lab: [facility] WSTRN [facility] [address] [facility] [address] Performing Lab: [place] [facility] [facility] [address] [facility] [address] UA COLOR Yellow Yellow UA APPEARANCE Clear [...] AND DIFF Specimen Type: BLOOD 01:43 PM [place] [facility] (AUTO) No comment enter ed. Ordering Provid er: SCRUGGS,DIMITRI J Report Released Date/Time: Feb 07, 2022 07:49 AM Reporting Lab: [facility] [place] [facility] [address] [facility] [address] Performing Lab: [place] [facility] [place] [facility] [address] [facility] [address] WBC 6.22 4.50-11.00 RBC 5.24 4.23-5.66 HGB 15.7 12.8-17 HCT 44.8 39.2-50.4 MCV 85.5 82-99 MCHC 35.0 30.8-35.1 PLT 390 H 140-360 RDW-CV 11.4 L 12.0-16.0 Quay, Abs 0.46 0.30-1.10 MCH 30.0 26.2-32.6 Neut % 60.2 Lymph % 30.1 Quay % 7.4 Eos % 1.1 Baso % 0.6 Neut, Abs 3.74 2.20-7.60 Lymph, Abs 1.87 1.00-3.20 Eos, Abs 0.07 0.03-0.44 Baso, Abs 0.04 0.01-0.13 Immature Gran % 0.6 Immature Gran, Abs 0.04 0.00-0.06 Jan 30, 2022 11:25 [facility] THYROID TOTAL T4 Specimen Ty pe: SERUM AM [place] [facility] No comment enter ed. Ordering Provid er: YINA HAGAN Report Released Date/Time: Jan 30, 2022 10:32 AM Reporting Lab: [facility] [place] [facility] [address] [facility] [address] Performing Lab: [facility] [place] [facility] [address] [facility] [address] THYROID TOTAL T4 8.86 4.5-12.0 Jan 30, 2022 [facility] TESTOSTERONE, TOTAL Specimen Ty pe: SERUM 11:25 AM [place] [facility] No comment enter ed. Ordering Provid er: YINA HAGAN Report Released Date/Time: Jan 30, 2022 10:32 AM Reporting Lab: [facility] [place] [facility] [address] [facility] [address] Performing Lab: [facility] [place] [facility] [address] [facility] [address] TESTOSTERONE, TOTAL 525.91 220.00-892 .00 Jan 30, 2022 [facility] HEMOGLOBIN A1C Specimen Type: BLOOD 11:25 AM [facility] PANEL Comment: Values obtained from A1C measurements can vary. For typical A1C assays, a reported value of 7.0 could actually be between 6.72 and 7.28 if measured by a reference method. A reported value of 9 .0 could actuall y be between 8.73 and 9.27. Ref: http://www.ngsp.org/CAPdata.asp Ordering Provid er: YINA HAGAN Report Released Date/Time: Jan 30, 2022 10:32 AM Reporting Lab: [facility] [address] [address] Performing Lab: [facility] [address] [address] HEMOGLOBIN A1C 4.6 4.0-5.6 Jan 30, 2022 11:25 [facility] LIVER FUNCTION Specimen Typ e: SERUM AM [facility] No comment enter ed. Ordering Provid er: YINA HAGAN Report Released Date/Time: Jan 30, 2022 10:32 AM Reporting Lab: [facility] [address] [facility] [address] Performing Lab: [address] [address] PROTEIN,TOTAL 7.2 6.0-8.3 ALBUMIN 4.0 3.5-5.0 ALKALINE PHOSPHATASE 57 40-150 AST 37 H 5-34 ALT 36 <6-55 BILIRUBIN, TOTAL 0.9 0.2-1.2 Jan 30, 2022 11:25 [facility]RL TRN CBC AND DIFF Specimen Typ e: BLOOD AM [facility] (AUTO) No comment enter ed. Ordering Provid er: YINA HAGAN Report Released Date/Time: Jan 30, 2022 10:32 AM Reporting Lab: [facility] [address] [address] Performing Lab: [facility] [place] [facility] [address] [facility] [address] WBC 2.65 L 4.50-11.00 RBC 5.29 4.23-5.66 [...] [facility] [place] [facility] [address] [facility] [address] Performing Lab: [facility] [place] [facility] [address] [facility] [address] CHOLESTEROL 167 <7-199 TRIGLYCERIDE 112 0-150 LDL calculated 108 0-129 CHOL/HDL 4.5 HDL CHOLESTEROL 37 L 40-60 Jan 30, 2022 11:25 AM [facility] [place] TSH Specimen Type: SERUM HCS No comment enter ed. Ordering Provid er: YINA HAGAN Report Released Date/Time: Jan 30, 2022 10:32 AM Reporting Lab: [facility] [place] [facility] [address] [facility] [address] Performing Lab: [facility] [place] [facility] [address] [facility] [address] TSH 0.82 0.35-5.00 Jan 30, 2022 11:25 [facility] [place] VITAMIN B12 S pecimen Type: SERUM AM [facility]CS No comment enter ed. Ordering Provid er: YINA HAGAN Report Released Date/Time: Jan 30, 2022 10:32 AM Reporting Lab: [facility] [place] [facility] [address] [facility] [address] Performing Lab: [facility] [place] [facility] [address] [facility] [address] VITAMIN B12 354 200-900 Jan 30, 2022 11:25 [facility] VITAMIN D (25-[place]) Specimen T ype: SERUM AM [place] [facility] No comment enter ed. Ordering Provid er: YINA HAGAN Report Released Date/Time: Jan 30, 2022 10:32 AM Reporting Lab: [facility] [place] [facility] [address] [facility] [address] Performing Lab: [facility]N [place] [facility] [address] [facility] [address] VITAMIN D (25-[place]) 38 20-50 Jan 30, 2022 [place] [facility] BASIC METABOLIC PANEL Specimen Type: SERUM 11:25 AM [place] [facility] (fasting) No comment enter ed. Ordering Provid er: YINA HAGAN Report Released Date/Time: Jan 30, 2022 10:32 AM Reporting Lab: [facility]N [place] [facility] [address] [facility] [address] Performing Lab: [facility]N [place] [facility] [address] [facility] [address] UREA NITROGEN 13 7-25 GLUCOSE 102 H 65-100 SODIUM 135 135-145 POTASSIUM 4.4 3.5-5.0 CHLORIDE 100 100-110 CO2 27 20-30 CREATININE, Serum 1.35 0.50-1.40 eGFR(CKD-EPI 2020) 72 >60 Jan 30, 2022 [facility] W[facility]N MICROSCOPIC AUTOMATED, Specimen Type: URINE 11:25 AM [place] [facility] URINE No comment enter ed. Ordering Provid er: YINA HAGAN Report Released Date/Time: Jan 30, 2022 10:32 AM Reporting Lab: [facility] [place] [facility] [address] [facility] [address] Performing Lab: [place] [facility] [facility] [address] [facility] [address] UA WBC 0-5 0-5 UA MUCUS FEW Trace UA RBC 3-5 0-3 Jan 30, 2022 [place] [facility] DIFFERENTIAL, MANUAL Specimen T ype: BLOOD 11:25 AM [place] [facility] Comment: Giant platelets present. SENT FOR PATHOLOGY REVIEW Ordering Provid er: YINA HAGAN Report Released Date/Time: Jan 30, 2022 10:32 AM Reporting Lab: [facility] WSTRN [facility] [address] [facility] [address] Performing Lab: [facility] [address] [facility] [address] SEGS 47 L 48-78 BANDS 5 0-10 LYMPHS 16 10-55 MONOS 23 H 2-12 VARIANT LYMPHOCYTES 5 0-6 OTHER/CELL 4 Jan 30, 2022 11:25 [facility] URINALYSIS S pecimen Type: URINE AM HCS No comment enter ed. Ordering Provid er: BENTLEYYINA Report Released Date/Time: Jan 30, 2022 10:32 AM Reporting Lab: [facility] [address] [facility] [address] Performing Lab: [facility] [address] [facility] [address] UA COLOR Yellow Yellow UA APPEARANCE Clear Clear UA GLUCOSE Negative Negative UA KETONES Negative Neg UA BLOOD Moderate Neg UA PROTEIN 30 Neg UA NITRITE Negative Neg UA BILIRUBIN Negative Neg UA SPECIFIC GRAVITY 1.027 H 1.016-1.02 2 UA pH 5.0 5.0-9.0 UA UROBILINOGEN <2.0 <2.0 UA LEUKOCYTE ESTERASE Negative Neg Jan [facility] LYME Specimen Type: SERUM 14, WSTRN SEROLOGY Comment: The [facility] SEROLOGY PANEL was performed using the FDA-approved Demetrius YINA Borrelia burdorferi modified two-tier test system. This modified methodology uses a second EIA in place of a western imm 2021 [place] PANEL unoblot assay, w the medical centerh the FDA has determined is substantially equivalent to or better than standard two-tier testing using western blot. Supplemental testing with a second EIA meets CDC guidelines for 11:25 [facility] Lyme disease aren ting. Performance characteristics [...] and local health departments, if applicable. The [place] State Form U RL is: http://www.ct.gov/dph/dru/dph/infectious_diseases/pdf_forms_/jm84_vizf.pdf Ordering Provid er: BENTLEYYINA Report Released Date/Time: Feb 03, 2022 12:51 PM Reporting Lab: [place] [facility] [place] [facility] [address] [facility] [address] Performing Lab: [place] [facility] [place] [facility] [address] [facility] [address] TIER 1 LYME SCREENING EIA Negative Nega tive LYME AB FINAL INTERPRETATION Negative N egative Jan 30, 2022 11:25 [place] CNT [facility] SMEAR CONSULT ([facility]) Specimen Type: BLOOD AM [place] [facility] Comment: SEE [id number] Ordering Provid er: YINA HAGAN Report Released Date/Time: Jan 30, 2022 12:51 PM Reporting Lab: [place] [facility] [facility] [address] [facility] [address] Performing Lab: [place] [facility] [facility] [address] [facility] [address] SMEAR CONSULT ([facility]) comment Vital Signs: All taken on [...] 23, 2021 02:30 PM VA-TO[facility]AC[facility] NEVER USED [facility] NTRL WSTRN [facility] Encounter Notes: All associated encounter notes This section contains the clinical notes associated to the Encounter. 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 /ivelisse/ NEDRA RIZZO RN Registered Nurse Signed: 01/30/2022 13:33
--- OUTSIDE RECORDS SUMMARY | 2022-04-18 10:02 | XMS_ITS ---
:1990 Author Organization Department of [facility] rs Address [address] [place] [address] Support Name Relationship Address Phone TETE TRAN Unavailable [address] [place] [address] THOMAS MONTOYA Unavailable [address] [place] [address] Insurance Providers: All historical and current Section Date Range: From patient's date of to the date document was created.This section includes the names of all active insurance providers for the patient. Insurance Type of Plan Start of End of Group Member Insurance Policy P atient's Provider Coverage Name Policy Policy Number ID Provider's Ojeda's Relationship Coverage Coverage Telephone Name to Policy Number Ojeda [facility] Aug 03, [id number] [phone] ROSA MARIA ChapoNH ASHLEE GIMENEZ 2019 [id number] STEPHANIE JOHNSON [facility] Selected Encounter This section includes the information on record at [place] for the Encounter. Date/Time Encounter Type Encounter Reason Provider Source Description Jan 30, 2022 OFFICE O/P EST PRIMARY ICD-10-CM I10 EUSEBIA ROSS 11:45 AM MINIMAL PROB CARE/MEDICINE Essential HY E (primary) hypertension with Provider Comments: Hypertension IHE Encounter Template Text not used by [place] Assessments - Encounter Diagnoses This section includes the primary and secondary diagnoses documented for the Encounter. Date/Time Primary/Secondary Diagnosis Name Provider Source Diagnosis Jan 30, 2022 PRIMARY Essential EUSEBIA ROSS [place] [facility] [facility] 01:20 PM (primary) HY E [place] [facility] hypertension Plan of Treatment: Future Appointments (+ 6 months) and Future Tests (+/- 45 days) The Plan of Treatment section includes future care activities for the patient from all [place] treatmentfacilities. This section includes future appointments and future orders which are active, pending orscheduled.Future Appointments This section includes appointments that were scheduled to occur 6 months from the date of the Encounter, up to a maximum of 20 appointments. The data comes from all [place] treatment facilities. Appointment Date/Time Appointment Type Appointment Facili ty Name Feb 04, 2022 02:15 PM AMBULATORY - NONE [place] [facility] [place] [facility] Feb 06, 2022 04:00 PM AMBULATORY - PSYCHIATRY [facility] [place] [facility] Feb 07, 2022 01:00 PM AMBULATORY - MEDICINE [facility] [place] [facility] Feb 10, 2022 01:15 PM AMBULATORY - MEDICINE [facility] [place] [facility] Feb 10, 2022 01:45 PM AMBULATORY - MEDICINE [facility] [place] [facility] Feb 12, 2022 09:00 AM AMBULATORY - PSYCHIATRY [facility] [place] [facility] Feb 14, 2022 12:00 PM AMBULATORY - PSYCHIATRY [facility] [place] [facility] Feb 25, 2022 01:00 PM AMBULATORY - PSYCHIATRY [facility] [place] [facility] Feb 27, 2022 02:00 PM AMBULATORY - PSYCHIATRY [facility] [place] [facility] Mar 17, 2022 03:00 PM AMBULATORY - PSYCHIATRY [facility] [place] [facility] Mar 28, 2022 09:00 AM AMBULATORY - PSYCHIATRY [facility] [place] [facility] Apr 17, 2022 01:00 PM AMBULATORY - NONE [place] [facility] [place] [facility] Apr 25, 2022 09:00 AM AMBULATORY - PSYCHIATRY [facility] [place] [facility] May 09, 2022 09:00 AM AMBULATORY - PSYCHIATRY [facility] [place] [facility] May 23, 2022 09:00 AM AMBULATORY - PSYCHIATRY [facility] [place] [facility] Jul 17, 2022 08:30 AM AMBULATORY - NONE [facility] [place] [facility] Lab Results: +/- 30 days of [...] Interpretation Reference Range Comment Feb 07, 2022 [facility] BRUCELLA ANTIBODY, Specimen Typ e: SERUM 01:43 PM [place] [facility] AGGLUTINATION Comment: REFERE NCE RANGE: <1:80 [...] performance characteri stics have been determined by [facility]. It has not been cleared or approved by FDA. This assay has been validated pursuant to the CLIA regulations and is used for clinical purposes. Test perfor med by [facility] [address] [place] [address] Miller Helper: Alejandrina Quick MD,PHD,VIRGINIE Test performed at [facility], [place], [place]. Ordering Provid er: DIMITRI SCRUGGS Report Released Date/Time: Feb 07, 2022 01:27 PM Reporting Lab: [facility] [address] [facility] [address] Performing Lab: [facility] [address] [facility], [address] [facility] [address] BRUCELLA ANTIBODY, AGGLUTINATION <1:80 Feb 07, 2022 [facility] BABESIA MICROTI Specimen Type: SERUM 01:43 PM [facility] ANTIBODIES (IgG, Comment: REFER ENCE RANGE: <1:64 [...] analytical performance characteristics have been determined by [employer] [place], [place]. It has not been cleared or approved by the U.S. Food and Drug A dministration. T his assay has been validated pursuant to the CLIA regulations and is used for clinical purposes. Test Performed by [facility], [facility], [address] [place], [place] Ronald Abdul M.D., Ph.D., Director of Laboratories , CLIA [id number] TEST PERFORMED AT: , Ordering Provid er: DIMITRI SCRUGGS Report Released Date/Time: Feb 07, 2022 01:29 PM Reporting Lab: [facility] [address] [facility] [address] Performing Lab: [facility] [address], [address] [facility] [address] Babesia microti IgG <1:64 SEE BELOW Babesia microti IgM <1:20 SEE BELOW BABESIA MICROTI AB INTER SEE NOTE Feb 07, 2022 [facility] ANAPLASMA AND Specimen Type: SERUM 01:43 PM [facility] EHRLICHIA AB PANEL Comment: REF ERENCE [...] performance c haracteristics have been determined by [facility] [place]. It has not been cleared or [...] analytical performance characteristics have been determined by [employer]. It has not been cleared or approved by the U.S. Food and Drug Administration. This assay has been validated pursuant to the CLIA regulations and is used for clinical purposes. Test Performed by [facility], [employer], [address] [place] [address] Ronald Abdul M.D., Ph.D., Director of Laboratories , CLIA [id number] TEST PERFORMED AT: , Ordering Provid er: DIMITRI SCRUGGS Report Released Date/Time: Feb 07, 2022 01:33 PM Reporting Lab: [facility] [address] [facility] [address] Performing Lab: [facility] [address] [facility], [address] [facility] [address] E. chaffeensis Ab IgG <1:64 SEE BELO W E. chaffeensis Ab IgM <1:20 SEE BELO W A.phagocytophilum Ab IgG <1:64 SEE B ELOW A.phagocytophilum Ab IgM <1:20 SEE B ELOW EHRLICHIA CHAFFEENSIS AB INTER SEE NOTE A. phagocytophilum inter SEE NOTE Feb 07, 2022 [facility] RICKETTSIA ANTIBODY Specimen Ty pe: SERUM 01:43 PM [facility] PANEL (Q) Comment: Test P erformed by [employer] [place], [facility] [employer] [place], [place] Ronald Abdul M.D., Ph.D., Director of Laboratories , CLIA [id number] TEST PERFORMED AT: , Ordering Provid er: DIMITRI SCRUGGS Report Released Date/Time: Feb 07, 2022 01:33 PM Reporting Lab: [facility] [address] [facility] [address] Performing Lab: [facility] [address], [address] [facility] [address] RMSF IgG Not Detected Not Detected RMSF IgM Not Detected Not Detected R. typhi IgM Not Detected Not Detected Feb 07, 2022 [facility] BABESIA MICROTI, Specimen Type: BLOOD 01:43 [facility] DNA PCR(WHV) Comment: The an alytical performance characteristics of this test have been determined [facility] It has not been cleared by the FDA. Ordering Provid er: DIMITRI SCRUGGS Report Released Date/Time: Feb 07, 2022 01:29 PM Reporting Lab: [facility] [address] [facility] [address] Performing Lab: [facility] [address] [facility] [address] BABESIA MICROTI, DNA PCR(WHV) Not Detected Not Detected Jan [facility] LYME Specimen Type: SERUM 22, W[facility]N SEROLOGY Comment: The re sults are supportive evidence for the presence of antibodies and exposure to Borrelia burgdorferi. The LYME SEROLOGY PANEL was performed using the FDA-approved Demetrius YINA Borrelia burdor 2021 [facility] PANEL feri modified tw o-tier test system. This modified methodology uses a second EIA in place of a western immunoblot assay, which the FDA has determined is substantially equivalent to or better than stand 01:43 [facility] two-tier aren ting using western blot. Supplemental testing with a second EIA meets CDC guidelines for Lyme disease testing. Performance characteristics of the panel were validated at the [facility] lar Diagnostics Laboratory. Results are considered [...] and local health departments, if applicable. The [place] State Form URL is: http://www.[place].gov/dph/dru/dph/infectious_diseases/pdf_forms_/mc32_oblr.pdf Ordering Provid er: DIMITRI SCRUGGS Report Released Date/Time: Feb 07, 2022 07:49 AM Reporting Lab: [facility] [place] [facility] [address] [facility] [address] Performing Lab: [facility] [place] [facility] [address] [facility] [address] TIER 1 LYME SCREENING EIA Presumptive Positive Negative LYME AB FINAL INTERPRETATION POSITIVE HH N egative TIER 2 LYME EIA,IgG Negative Negative TIER 2 LYME EIA,IgM POSITIVE HH Negative Feb 07, 2022 01:43 PM [facility] [place] FOLATE Specimen Type: SERUM HCS No comment enter ed. Ordering Provid er: DIMITRI SCRUGGS Report Released Date/Time: Feb 07, 2022 07:49 AM Reporting Lab: [facility] [place] [facility] [address] [facility] [address] Performing Lab: [facility] WSTRN [place] [facility] [address] [facility] [address] FOLATE 12.99 >5.2 Feb 07, 2022 [place] [facility] C REACTIVE PROTEIN Specimen Typ e: SERUM 01:43 PM [facility] (CRP) Comment: Refere nce range changed on 01/07/11 [facility] reference ranges for ages >17 years: hsCRP [...] Feb 07, 2022 01:18 PM Reporting Lab: [facility] [address] [facility] [address] Performing Lab: [facility] [address] [facility] [address] C REACTIVE PROTEIN (CRPH) 2.32 See eval. Feb 07, 2022 [facility] MALARIA/BABESIA EXAM Specimen T ype: BLOOD 01:43 PM [facility] Comment: Due to the cyclical shed rates of these parasites, one negative specimen does not rule out the possibility of a parasitic infection. Obtain specimens at 6-hour intervals for 36 hours for a com prehensive exami nation. Test Performed by [facility], [facility], [address] [place] [address] Ronald Abdul M.D., Ph.D., Director of Laboratories , [facility] [id number] TEST PERFORMED AT: , Ordering Provid er: DIMITRI SCRUGGS Report Released Date/Time: Feb 07, 2022 01:29 PM Reporting Lab: [facility] [address] [facility] [address] Performing Lab: [facility] [address], [address] [place] [address] MALARIA/BABESIA EXAM Negative Negative Feb 07, 2022 [facility] CORA SCREEN/TITER Specimen Type: SERUM 01:43 PM [facility] No comment enter ed. Ordering Provid er: DIMITRI SCRUGGS Report Released Date/Time: Feb 07, 2022 01:29 PM Reporting Lab: [place] [facility] [facility] [address] [facility] [address] Performing Lab: [place] [facility] [facility] [address] [facility] [address] CORA SCREEN NEG NEG <1:40 Feb 07, 2022 01:43 [place] [facility] VITAMIN B12 Specimen Typ e: SERUM PM [place] [facility] No comment enter ed. Ordering Provid er: DIMITRI SCRUGGS Report Released Date/Time: Feb 07, 2022 07:49 AM Reporting Lab: [place] [facility] [address] [facility] [address] Performing Lab: [place] [facility] [facility] [address] [facility] [address] VITAMIN B12 593 200-900 Feb 07, 2022 [place] [facility] SED RATE, AUTOMATED Specimen Ty pe: BLOOD 01:43 PM [facility] No comment enter ed. Ordering Provid er: DIMITRI SCRUGGS Report Released Date/Time: Feb 07, 2022 01:18 PM Reporting Lab: [place] [facility] [address] [facility] [address] Performing Lab: [place] [facility] [address] [facility] [address] SED RATE, AUTOMATED 9 0-15 Feb 07, 2022 [place] [facility] URINALYSIS CLEAN Specimen Type: URINE 01:43 PM [facility] CATCH No comment enter ed. Ordering Provid er: DIMITRI SCRUGGS Report Released Date/Time: Feb 07, 2022 07:50 AM Reporting Lab: [place] [facility] [facility] [address] [facility] [address] Performing Lab: [place] [facility] [facility] [address] [facility] [address] UA COLOR Yellow Yellow UA APPEARANCE Clear Clear UA GLUCOSE Negative Negative UA KETONES Negative Neg UA BLOOD Negative Neg UA PROTEIN Negative Neg UA NITRITE Negative Neg UA BILIRUBIN Negative Neg UA SPECIFIC GRAVITY 1.017 1.016-1.02 2 UA pH 6.0 5.0-9.0 UA UROBILINOGEN <2.0 <2.0 UA LEUKOCYTE ESTERASE Negative Neg Feb 07, 2022 [facility] CBC AND DIFF Specimen Type: BLOOD 01:43 PM [facility] (AUTO) No comment enter ed. Ordering Provid er: DIMITRI SCRUGGS Report Released Date/Time: Feb 07, 2022 07:49 AM Reporting Lab: [facility] [address] [facility] [address] Performing Lab: [facility] [address] [facility] [address] WBC 6.22 4.50-11.00 RBC 5.24 4.23-5.66 HGB 15.7 12.8-17 HCT 44.8 39.2-50.4 MCV 85.5 82-99 MCHC 35.0 30.8-35.1 PLT 390 H 140-360 RDW-CV 11.4 L 12.0-16.0 Custer, Abs 0.46 0.30-1.10 MCH 30.0 26.2-32.6 Neut % 60.2 Lymph % 30.1 Custer % 7.4 Eos % 1.1 Baso % 0.6 Neut, Abs 3.74 2.20-7.60 Lymph, Abs 1.87 1.00-3.20 Eos, Abs 0.07 0.03-0.44 Baso, Abs 0.04 0.01-0.13 Immature Gran % 0.6 Immature Gran, Abs 0.04 0.00-0.06 Jan 30, 2022 [facility] TESTOSTERONE, TOTAL Specimen Ty pe: SERUM 11:25 AM [facility] No comment enter ed. Ordering Provid er: YINA GUERRIER Report Released Date/Time: Jan 30, 2022 10:32 AM Reporting Lab: [facility] [address] [facility] [address] Performing Lab: [address] [facility] [address] TESTOSTERONE, TOTAL 525.91 220.00-892 .00 Jan 30, 2022 11:25 [place] [facility] THYROID TOTAL T4 Specimen Ty pe: SERUM AM [place] [facility] No comment enter ed. Ordering Provid er: YINA GUERRIER Report Release d Date/Time: Jan 30, 2022 10:32 AM Reporting Lab: [facility] [address] [facility] [address] Performing Lab: [facility]TR[facility] [address] [facility] [address] THYROID TOTAL T4 8.86 4.5-12.0 Jan 30, 2022 11:25 [place] LIVER FUNCTION Specimen Typ e: SERUM AM [place] [facility] No comment enter ed. Ordering Provid er: YINA GUERRIER Report Released Date/Time: Jan 30, 2022 10:32 AM Reporting Lab: [facility] [address] [facility] [address] Performing Lab: [facility] [address] [facility] [address] PROTEIN,TOTAL 7.2 6.0-8.3 ALBUMIN 4.0 3.5-5.0 ALKALINE PHOSPHATASE 57 40-150 AST 37 H 5-34 ALT 36 <6-55 BILIRUBIN, TOTAL 0.9 0.2-1.2 Jan 30, 2022 [facility] HEMOGLOBIN A1C Specimen Type: BLOOD 11:25 AM [facility] PANEL Comment: Values obtained from A1C measurements can vary. For typical A1C assays, a reported value of 7.0 could actually be between 6.72 and 7.28 if measured by a reference method. A reported value of 9 .0 could actuall y be between 8.73 and 9.27. Ref: http://www.ngsp.org/CAPdata.asp Ordering Provid er: YINA GUERRIER Report Released Date/Time: Jan 30, 2022 10:32 AM Reporting Lab: [facility] [address] [facility] [address] Performing Lab: [facility] [address] [facility] [address] HEMOGLOBIN A1C 4.6 4.0-5.6 Jan 30, 2022 11:25 [place] [facility] CBC AND DIFF Specimen Typ e: BLOOD AM [place] [facility] (AUTO) No comment enter ed. Ordering Provid er: YINA GUERRIER Report Released Date/Time: Jan 30, 2022 10:32 AM Reporting Lab: [facility] [place] [facility] [address] [facility] [address] Performing Lab: [facility] [place] [facility] [address] [facility] [address] WBC 2.65 L 4.50-11.00 RBC 5.29 4.23-5.66 HGB 15.7 12.8-17 HCT 46.2 39.2-50.4 MCV 87.3 82-99 MCHC 34.0 30.8-35.1 PLT 152 140-360 RDW-CV 11.5 L 12.0-16.0 MCH 29.7 26.2-32.6 Jan 30, 2022 [place] [facility] BASIC METABOLIC PANEL Specimen Type: SERUM 11:25 AM [place] [facility] (fasting) No comment enter ed. Ordering Provid er: YINA GUERRIER Report Released Date/Time: Jan 30, 2022 10:32 AM Reporting Lab: [place] [facility] [address] [facility] [address] Performing Lab: [facility] [place] [facility] [address] [facility] [address] UREA NITROGEN 13 7-25 GLUCOSE 102 H 65-100 SODIUM 135 135-145 POTASSIUM 4.4 3.5-5.0 CHLORIDE 100 100-110 CO2 27 20-30 CREATININE, Serum 1.35 0.50-1.40 eGFR(CKD-EPI 2020) 72 >60 Jan 30, 2022 11:25 AM [facility] [place] TSH Specimen Type: SERUM [facility]CS No comment enter ed. Ordering Provid er: YINA GUERRIER Report Released Date/Time: Jan 30, 2022 10:32 AM Reporting Lab: [facility] [place] [facility] [address] [facility] [address] Performing Lab: [facility] [place] [facility] [address] [facility] [address] TSH 0.82 0.35-5.00 Jan 30, 2022 11:25 [place] [facility] VITAMIN B12 S pecimen Type: SERUM AM HCS No comment enter ed. Ordering Provid er: YINA GUERRIER Report Released Date/Time: Jan 30, 2022 10:32 AM Reporting Lab: [facility] [place] [facility] [address] [facility] [address] Performing Lab: [facility] [place] [facility] [address] [facility] [address] VITAMIN B12 354 200-900 Jan 30, 2022 11:25 [facility] LIPID PANEL FASTING Specimen Type: SERUM AM [place] [facility] No comment enter ed. Ordering Provid er: YINA GUERRIER Report Released Date/Time: Jan 30, 2022 10:32 AM Reporting Lab: [facility] [place] [facility] [address] [facility] [address] Performing Lab: [facility] [place] [facility] [address] [facility] [address] CHOLESTEROL 167 <7-199 TRIGLYCERIDE 112 0-150 LDL calculated 108 0-129 CHOL/HDL 4.5 HDL CHOLESTEROL 37 L 40-60 Jan 30, 2022 11:25 [facility] VITAMIN D (25-[place]) Specimen T ype: SERUM AM [place] [facility] No comment enter ed. Ordering Provid er: YINA GUERRIER Report Released Date/Time: Jan 30, 2022 10:32 AM Reporting Lab: [facility] [place] [facility] [address] [facility] [address] Performing Lab: [facility] [place] [facility] [address] [facility] [address] VITAMIN D (25-[place]) 38 20-50 Jan 30, 2022 [facility] MICROSCOPIC AUTOMATED, Specimen Type: URINE 11:25 AM [place] [facility] URINE No comment enter ed. Ordering Provid er: YINA GUERRIER Report Released Date/Time: Jan 30, 2022 10:32 AM Reporting Lab: [facility] [place] [facility] [address] [facility] [address] Performing Lab: [facility] [place] [facility] [address] [facility] [address] UA WBC 0-5 0-5 UA MUCUS FEW Trace UA RBC 3-5 0-3 Jan 30, 2022 [facility] DIFFERENTIAL, MANUAL Specimen T ype: BLOOD 11:25 AM [facility] Comment: Giant platelets present. SENT FOR PATHOLOGY REVIEW Ordering Provid er: YINA GUERRIER Report Released Date/Time: Jan 30, 2022 10:32 AM Reporting Lab: [facility] [address] [facility] [address] Performing Lab: [facility] [address] [facility] [address] SEGS 47 L 48-78 BANDS 5 0-10 LYMPHS 16 10-55 MONOS 23 H 2-12 VARIANT LYMPHOCYTES 5 0-6 OTHER/CELL 4 Jan 30, 2022 11:25 [facility] URINALYSIS S pecimen Type: URINE AM [facility] No comment enter ed. Ordering Provid er: YINA GUERRIER Report Released Date/Time: Jan 30, 2022 10:32 AM Reporting Lab: [facility] [address] [facility] [address] Performing Lab: [facility] [address] [facility] [address] UA COLOR Yellow Yellow UA APPEARANCE Clear Clear UA GLUCOSE Negative Negative UA KETONES Negative Neg UA BLOOD Moderate Neg UA PROTEIN 30 Neg UA NITRITE Negative Neg UA BILIRUBIN Negative Neg UA SPECIFIC GRAVITY 1.027 H 1.016-1.02 2 UA pH 5.0 5.0-9.0 UA UROBILINOGEN <2.0 <2.0 UA LEUKOCYTE ESTERASE Negative Neg Jan [facility] LYME Specimen Type: SERUM 14, [facility] SEROLOGY Comment: The LY ME SEROLOGY PANEL was performed using the FDA-approved Demetrius YINA Borrelia burdorferi modified two-tier test system. This modified methodology uses a second EIA in place of a western imm 2021 [place] PANEL unoblot assay, w [facility] the FDA has determined is substantially equivalent to or better than standard two-tier testing using western blot. Supplemental testing with a second EIA meets CDC guidelines for 11:25 [facility] Lyme disease aren ting. Performance characteristics of the panel were validated at the [facility] Molecular Diagnostics Laboratory. Results are considered positive [...] and local health departments, if applicable. The [place] State Form U RL is: http://www.or.gov/dph/dru/dph/infectious_diseases/pdf_forms_/yv37_nddm.pdf Ordering Provid er: YINA GUERRIER Report Released Date/Time: Feb 03, 2022 12:51 PM Reporting Lab: [facility] [place] [facility] [address] [id number] Performing Lab[facility] [address] [id number] TIER 1 LYME SCREENING EIA Negative Nega tive LYME AB FINAL INTERPRETATION Negative N egative Jan 30, 2022 11:25 [facility] SMEAR CONSULT ([facility]) Specimen Type: BLOOD AM [place] [facility] Comment: SEE HE [id number] Ordering Provid er: YINA GUERRIER Report Released Date/Time: Jan 30, 2022 12:51 PM Reporting Lab: [facility] [facility] [address] [id number] Performing Lab: [facility] [address] [id number] SMEAR CONSULT (WHV) comment Vital Signs: All taken on the [...] smoking and tobacco-related health factors from the [place] facility where the Encounter took place.Current Smoking Status This section includes the most current smoking, or tobacco-related health factor, from the [place] facility where the Encounter took place. Date/Time Current Smoking Status Comment Facility May 23, 2021 02:30 PM VA-TOBACCO NEVER USED [facility] [place] [facility] Encounter Notes: All associated encounter notes This section contains the clinical notes associated to the Encounter. Date/Time Encounter Note(s) Provider Source Jan 31, 2022 11:39 CARDIOLOGY DIAGNOSTIC STUDY CONSULT: NEDRA ROSS [place] [facility] [facility] [place] LOCAL TITLE: CONSULT REPORT/EKG [facility] STANDARD TITLE: CARDIOLOGY DIAGNOSTIC STUDY CONS ULT DATE OF NOTE: JAN 31, 2022@11:39 ENTRY DATE: JAN 31, 2022@11:39:57 AUTHOR: NEDRA RSOS EXP COSIGNER: URGENCY: STATUS: COMPLETED EKG tracing was performed for diagnosis of CP or dered by Yina Guerrier. EKG was completed and was in NSR /es/ NEDRA ROSS MSN Ed., BSN CROP OR GRAIN FARMWORKER NURSE Signed: 01/31/2022 11:40 Jan 30, 2022 12:49 URGENT CARE NOTE: YINA GUERRIER [place] [facility] PM LOCAL TITLE: INTERFACILITY TRANSFER FORM 10-264 9A [facility] STANDARD TITLE: URGENT CARE NOTE DATE OF NOTE: JAN 30, 2022@12:49 ENTRY DATE: JAN 30, 2022@12:52:27 AUTHOR: YINA GUERRIER EXP COSIGNER: URGENCY: STATUS: COMPLETED Interfacility Transfer [place] Form [id number] LIP/MYNOR (MD/DO/TOILET ATTENDANT/PA) Required SECTION I - REASON FOR TRANSFER 1. Nature of services needed by patient requiri ng transfer (Identify): Diagnosis, Treatment 2. Describe service needed: SECTION II - TYPE AND LEVEL OF SERVICES REQUIRE D 1. Patient presenting symptoms: fever and rash, headache,chest pain 2. Diagnostic testing completed: 3. Diagnosis: unk 4. Description of treatment prior to transfer: n/a 5. Description of further treatment contemplate d: n/a 6. Level of care prior to transfer (ER, Outpati ent, [place], ICU etc.): outpatient SECTION III - CONDITION OF PATIENT ON TRANSFER 1. Is patient medically stable for transfer: Jose watt Describe: 2. Is patient behaviorally stable for transfer: Yes Describe: The transfer of an unstable patient REQUIRES th e agreement and signature of a physician. Physician who approved of trans nuzhat . SECTION IV - MODE OF TRANSPORTATION 1. Describe mode and level of care required for transport (including facility staff if required): Transport mode: Other: Level of care: will drive himself 2. Medications or treatments required during tr ansport: n/a SECTION V - PATIENT/FAMILY CONSENT RECEIVED Consent for transfer obtained: YES Patient Consent obtained from: Patient SECTION - DECISION (To be completed for all non-911 transfers.) Non-911 transfer ACCEPTED Name of accepting LIP/MYNOR (MD//TOILET ATTENDANT/PA) or Rupert winkler of Contact: [facility] patient is being transferred to: Unit patient to be transferred to: er Contact phone number for accepting LIP/MYNOR (MD/ /TOILET ATTENDANT/PA) or POC: [phone] /ivelisse/ YINA GUERRIER [facility] NURSE PRACTITIONER Signed: 01/30/2022 13:04 Jan 30, 2022 12:08 PRIMARY CARE OUTPATIENT NOTE: [place] ROSS [place] [facility] [facility] PM LOCAL TITLE: AMBULATORY/OUTPATIENT CARE NOTE [place] [facility] STANDARD TITLE: PRIMARY CARE OUTPATIENT NOTE DATE OF NOTE: JAN 30, 2022@12:08 ENTRY DATE: JAN 30, 2022@12:08:41 AUTHOR: NEDRA ROSS EXP COSIGNER: URGENCY: STATUS: COMPLETED F: Walk-in D: Vet says that he has a rash on his ba ck, knee, thighs, golf size rash lower back- hot to touch, and fever. He says that he n oticed the rash this AM. He has H/A, chills, sweats, Lower Abd pain, lymph node swelling. He says that his pain level is 7/10 - H/A. He says that he has be en taking Ibuprofen, and Tylenol. Ibuprofen was taken last @ 0330-this AM . He last took the Tylenol @ 8P last night. Negative for Covid test d one both and Thu. He says that he went to the [facility] ER Thursday and Thu. An EkG was d one. He was told by [facility] that he had Costochondritis. He says that he has been having CP since Thursday morning. He says that the CP is intermit [id number], and non-radiating. He says that he has had no N/V/D or SOB. He says that he had a tick bite on 12/17/21 and removed it himself. A Lyme t iter was done to [facility] Lyme [facility]itis. He said that he did go there and nothing was done. Vet has gone to the lab. Vet was given an appt to see PCP 02/07/22@130 0 for F/U. Vecathi is being transferred to [facility] via POV for a higher level of care. PMH: Active problems - Computerized Problem List is t he source for the followin. Bilateral shoulder joint pain 2. 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 Low back pain X-RAY, L-Spine 2012: some Scol iosis 6. Benign hypertension US, Renal JUN 01: +Benig n Cysts R Side; None L Side 7. Posttraumatic stress disorder (SNOMED [place] [id number]) updated. Advance Directive Screen: Patient does not have a completed advance direc tive on file at any facility, [facility] or outside. S/he is not interested in completing one at this time. The patient received education about Advance Di rectives and written notification of his/her rights. Comment: Vet was given an Adv Dir to bring home with him to fill out and bring back to PCP /es/ NEDRA ROSS MSN Ed., BSN CROP OR GRAIN FARMWORKER NURSE Signed: 01/30/2022 13:20 Receipt Acknowledged By: * AWAITING SIGNATURE * YINA GUERRIER * AWAITING SIGNATURE * DIMITRI SCRUGGS
--- OUTSIDE RECORDS SUMMARY | 2022-04-18 10:02 | XMS_ITS ---
:1990 Author Organization Department [facility] rs Address [address] [place] [address] Support Name Relationship Address Phone TETE TRAN Unavailable [address] [place] [address] THOMAS MONTOYA Unavailable [address] [place] [address] Insurance Providers: All historical and current Section Date Range: From patient's date of to the date document was created.This section includes the names of all active insurance providers for the patient. Insurance Type of Plan Start of End of Group Member Insurance Policy P atient's Provider Coverage Name Policy Policy Number ID Provider's Ojeda's Relationship Coverage Coverage Telephone Name to Policy Number Ojeda [facility] Aug 03, [id number] [phone] ALIAROSINA Mane PATIENT BEE GIMENEZ 2019 [id number] STEPHANIE JOHNSON [facility] ORGANIZ E DEPT Selected Encounter This section includes the information on record at [place] for the Encounter. Date/Time Encounter Type Encounter Description Reason Provider Source Jan 30, 2022 11:42 Outpatient Encounter PRIMARY CARE/MEDICINE AM IHE Encounter Template Text not used by [place] Plan of Treatment: Future Appointments (+ 6 [...] 04, 2022 02:15 PM [facility] Feb 06, 2022 04:00 PM AMBULATORY [...] AMBULATORY - PS[facility]CHIATRY [facility] [place] [facility] Mar 28, 2022 09:00 AM AMBULATORY - PSYCHIATRY [facility] [place] [facility] Apr 17, 2022 01:00 PM AMBULATORY - NONE [facility] [place] [facility] Apr 25, 2022 09:00 AM AMBULATORY - PSYCHIATRY [facility] [place] [facility] May 09, 2022 09:00 AM AMBULATORY - PS[facility]CHIATRY [facility] [place] [facility] May 23, 2022 09:00 AM AMBULATORY - PSYCHIATRY [facility] [place] [facility] Jul 17, 2022 08:30 AM AMBULATORY - NONE [facility] [place] [facility] Lab Results: +/- 30 days of the encounter This section includes the Chemistry and Hematology Lab Results on record with [place] for the patient. Radiology Reports and Pathology Reports are provided separately, in subsequent sections.Lab Results This section contains the Chemistry/Hematology Results that were resulted 30 days before or 30 daysafter the date of the Encounter. Date/Time Source Result Type Result - Unit Interpretation Reference Range Comment Feb 07, 2022 [facility] BRUCELLA ANTIBODY, Specimen Typ e: SERUM 01:43 PM [place] [facility] AGGLUTINATION Comment: REFERE NCE RANGE: <1:80 [...] performance characteri stics have been determined by [employer]. It has not been cleared or approved by FDA. This assay has been validated pursuant to the CLIA regulations and is used for clinical purposes. Test perfor med by [employer] [facility][1] [address] [place] [address] Dirt Bike Racer: Alejandrina Quick MD,PHD,[place] Test performed at [place], [place]. Ordering Provid er: DIMITRI SCRUGGS Report Released Date/Time: Feb 07, 2022 01:27 PM Reporting Lab: [facility] Enterra FeedUSEELMHURST [facility] [address] [facility] [address] Performing Lab: [facility] [address] [facility], [address] [facility] [address] BRUCELLA ANTIBODY, AGGLUTINATION <1:80 Feb 07, 2022 [facility] BABESIA MICROTI Specimen Type: SERUM 01:43 PM [facility] AppCHUSEELMHURST [facility] CENTER ANTIBODIES (IgG, Comment: REFER ENCE RANGE: <1:64 [...] analytical performance characteristics have been determined by [employer] [place], [place]. It has not been cleared or approved by the U.S. Food and Drug A dministration. T his assay has been validated pursuant to the CLIA regulations and is used for clinical purposes. Test Performed by [facility], [employer] [place], [address] [place], [place] Ronald Abdul M.D., Ph.D., Director of Laboratories , CLIA [id number] TEST PERFORMED AT: , Ordering Provid er: DIMITRI SCRUGGS Report Released Date/Time: Feb 07, 2022 01:29 PM Reporting Lab: [facility] [address] [facility] [address] Performing Lab: [facility] [address] [facility] [address], [address] [facility] [address] Babesia microti IgG <1:64 SEE BELOW Babesia microti IgM <1:20 SEE BELOW BABESIA MICROTI AB INTER SEE NOTE Feb 07, 2022 [facility] ANAPLASMA AND Specimen Type: SERUM 01:43 PM [facility] EHRLICHIA AB PANEL Comment: REF ERENCE [...] performance c haracteristics have been determined by [facility], [place], [place]. It has not been cleared or [...] analytical performance characteristics have been determined by [employer] [place], [place]. It has not been cleared or approved by the U.S. Food and Drug Administration. This assay has been validated pursuant to the CLIA regulations and is used for clinical purposes. Test Performed by [facility], [facility], [address] [place] [address] Ronald Abdul M.D., Ph.D., Director of Laboratories , CLIA [id number] TEST PERFORMED AT: , Ordering Provid er: DIMITRI SCRUGGS Report Released Date/Time: Feb 07, 2022 01:33 PM Reporting Lab: [facility] [address] [facility] [address] Performing Lab: [facility] [address] [facility], [address] [place] [address] E. chaffeensis Ab IgG <1:64 SEE BELO W E. chaffeensis Ab IgM <1:20 SEE BELO W A.phagocytophilum Ab IgG <1:64 SEE B ELOW A.phagocytophilum Ab IgM <1:20 SEE B ELOW EHRLICHIA CHAFFEENSIS AB INTER SEE NOTE A. phagocytophilum inter SEE NOTE Feb 07, 2022 [facility] BABESIA MICROTI, Specimen Type: BLOOD 01:43 PM [facility] DNA PCR(V) Comment: The an alytical performance characteristics of this test have been determined by [facility]. It has not been cleared by the FDA. Ordering Provid er: DIMITRI SCRUGGS Report Released Date/Time: Feb 07, 2022 01:29 PM Reporting Lab: [facility] [address] [facility] [address] Performing Lab: [facility] [address] [facility] [address] BABESIA MICROTI, DNA PCR(WHV) Not Detected Not Detected Feb 07, 2022 [facility] RICKETTSIA ANTIBODY Specimen Ty pe: SERUM 01:43 PM [facility] PANEL (Q) Comment: Test P erformed by Betty Tracey [employer] Aaliyah [facility], [address] [place] [address] Ronald Abdul M.D., Ph.D., Director of Laboratories , CLIA [id number] TEST PERFORMED AT: , Ordering Provid er: DIMITRI SCRUGGS Report Released Date/Time: Feb 07, 2022 01:33 PM Reporting Lab: [facility] [address] [facility] [address] Performing Lab: [facility] [address], [address] [facility] [address] RMSF IgG Not Detected Not Detected RMSF IgM Not Detected Not Detected R. typhi IgM Not Detected Not Detected Jan [facility] LYME Specimen Type: SERUM 22, WSTRN SEROLOGY Comment: The re sults are supportive evidence for the presence of antibodies and exposure to Borrelia burgdorferi. The LYME SEROLOGY PANEL was performed using the FDA-approved Demetrius YINA Borrelia burdor 2021 [facility] PANEL feri modified tw o-tier test system. This modified methodology uses a second EIA in place of a western immunoblot assay, which the FDA has determined is substantially equivalent to or better than stand 01:43 [facility] damaris two-tier aren ting using western blot. Supplemental testing with a second EIA meets CDC guidelines for Lyme disease testing. Performance characteristics of the panel were validated at the [facility] lar Diagnostics Laboratory. Results are considered [...] applicable. The [place] State Form URL is: http://www.ct.gov/dph/dru/dph/infectious_diseases/pdf_forms_/lo40_xugq.pdf Ordering Provid er: DIMITRI SCRUGGS Report Released Date/Time: Feb 07, 2022 07:49 AM Reporting Lab: [place] [employer] Chai LabsTRN Jiongji AppCHUSETS [facility] [address] [facility] [address] Performing Lab: BANNERTRN [facility] [address] [facility] [address] TIER 1 LYME SCREENING EIA Presumptive Positive Negative LYME AB FINAL INTERPRETATION POSITIVE HH N egative TIER 2 LYME EIA,IgG Negative Negative TIER 2 LYME EIA,IgM POSITIVE HH Negative Feb 07, 2022 01:43 PM [place] [facility] [facility] FOLATE Specimen Type: SERUM [facility] No comment enter ed. Ordering Provid er: DIMITRI SCRUGGS Report Released Date/Time: Feb 07, 2022 07:49 AM Reporting Lab: [facility] WSTRN [place] [facility] [address] [facility] [address] Performing Lab: [facility] [place] [facility] [address] [facility] [address] FOLATE 12.99 >5.2 Feb 07, 2022 [place] C REACTIVE PROTEIN Specimen Typ e: SERUM 01:43 PM [facility] ([facility]) Comment: Refere nce range changed on 01/07/11 [facility] reference ranges for ages >17 years: hsCRP [...] Feb 07, 2022 01:18 PM Reporting Lab: [facility] [address] [facility] [address] Performing Lab: [facility] [address] [facility] [address] C REACTIVE PROTEIN (CRPH) 2.32 See eval. Feb 07, 2022 [facility] MALARIA/BABESIA EXAM Specimen T ype: BLOOD 01:43 PM [facility] Comment: Due to the cyclical shed rates of these parasites, one negative specimen does not rule out the possibility of a parasitic infection. Obtain specimens at 6-hour intervals for 36 hours for a com prehensive exami nation. Test Performed by [facility], [employer] [facility], [address] [place] [address] Ronald Abdul M.D., Ph.D., Director of Laboratories , [place] [id number] TEST PERFORMED AT: , Ordering Provid er: DIMITRI SCRUGGS Report Released Date/Time: Feb 07, 2022 01:29 PM Reporting Lab: [facility] [address] [facility] [address] Performing Lab: [facility] [address], [address] [place] [address] MALARIA/BABESIA EXAM Negative Negative Feb 07, 2022 [facility]ITALRR[facility]ITALTRN CORA SCREEN/TITER Specimen Type: SERUM 01:43 PM [facility] No comment enter ed. Ordering Provid er: DIMITRI SCRUGGS Report Released Date/Time: Feb 07, 2022 01:29 PM Reporting Lab: [facility] [address] [facility] [address] Performing Lab: [facility] [address] [facility] [address] CORA SCREEN NEG NEG <1:40 Feb 07, 2022 01:43 [place] [facility] VITAMIN B12 Specimen Typ e: SERUM PM [place] [facility] No comment enter ed. Ordering Provid er: DIMITRI SCRUGGS Report Released Date/Time: Feb 07, 2022 07:49 AM Reporting Lab: BANNERTRN [facility] [address] [facility] [address] Performing Lab: [facility]ITALR WSTRN [facility]ITAL[facility] [address] [facility] [address] VITAMIN B12 593 200-900 Feb 07, 2022 [place] SED RATE, AUTOMATED Specimen Ty pe: BLOOD 01:43 PM [place] [facility] No comment enter ed. Ordering Provid er: DIMITRI SCRUGGS Report Released Date/Time: Feb 07, 2022 01:18 PM Reporting Lab: [facility] [address] [facility] [address] Performing Lab: [facility]ITALRRMC [facility]OSPITALTRN [facility]ITAL[facility] [address] [facility] [address] SED RATE, AUTOMATED 9 0-15 Feb 07, 2022 [place] URINALYSIS CLEAN Specimen Type: URINE 01:43 PM [facility] CATCH No comment enter ed. Ordering Provid er: DIMITRI SCRUGGS Report Released Date/Time: Feb 07, 2022 07:50 AM Reporting Lab: [facility]ITALRRMC [facility] HOSPITALTRN [facility]ITAL[facility] [address] [facility] [address] Performing Lab: [facility]ITALRRMC [facility]OSPITALTRN [facility]ITAL[facility] [address] [facility] [address] UA COLOR Yellow Yellow UA APPEARANCE Clear Clear UA GLUCOSE Negative Negative UA KETONES Negative Neg UA BLOOD Negative Neg UA PROTEIN Negative Neg UA NITRITE Negative Neg UA BILIRUBIN Negative Neg UA SPECIFIC GRAVITY 1.017 1.016-1.02 2 UA pH 6.0 5.0-9.0 UA UROBILINOGEN <2.0 <2.0 UA LEUKOCYTE ESTERASE Negative Neg Feb 07, 2022 [place] CBC AND DIFF Specimen Type: BLOOD 01:43 PM [facility] (AUTO) No comment enter ed. Ordering Provid er: DIMITRI SCRUGGS Report Released Date/Time: Feb 07, 2022 07:49 AM Reporting Lab: [place] [facility] [address] [facility] [address] Performing Lab: [place] [facility] [address] [facility] [address] WBC 6.22 4.50-11.00 RBC 5.24 4.23-5.66 HGB 15.7 12.8-17 HCT 44.8 39.2-50.4 MCV 85.5 82-99 MCHC 35.0 30.8-35.1 PLT 390 H 140-360 RDW-CV 11.4 L 12.0-16.0 Kimble, Abs 0.46 0.30-1.10 MCH 30.0 26.2-32.6 Neut % 60.2 Lymph % 30.1 Kimble % 7.4 Eos % 1.1 Baso % 0.6 Neut, Abs 3.74 2.20-7.60 Lymph, Abs 1.87 1.00-3.20 Eos, Abs 0.07 0.03-0.44 Baso, Abs 0.04 0.01-0.13 Immature Gran % 0.6 Immature Gran, Abs 0.04 0.00-0.06 Jan 30, 2022 11:25 [place] [facility] THYROID TOTAL T4 Specimen Ty pe: SERUM AM [place] [facility] No comment enter ed. Ordering Provid er: YINA HAGAN Report Released Date/Time: Jan 30, 2022 10:32 AM Reporting Lab: [facility] [place] [facility] [address] [facility] [address] Performing Lab: [place] [facility] [address] [facility] [address] THYROID TOTAL T4 8.86 4.5-12.0 Jan 30, 2022 [place] [facility] TESTOSTERONE, TOTAL Specimen Ty pe: SERUM 11:25 AM [place] [facility] No comment enter ed. Ordering Provid er: YINA HAGAN Report Released Date/Time: Jan 30, 2022 10:32 AM Reporting Lab: [place] [facility] [facility] [address] [facility] [address] Performing Lab: [place] [facility] [address] [facility] [address] TESTOSTERONE, TOTAL 525.91 220.00-892 .00 Jan 30, 2022 11:25 [place] [facility] CBC AND DIFF Specimen Typ e: BLOOD AM [place] [facility] (AUTO) No comment enter ed. Ordering Provid er: YINA HAGAN Report Released Date/Time: Jan 30, 2022 10:32 AM Reporting Lab: [place] [facility] [address] [facility] [address] Performing Lab: [place] [facility] [facility] [address] [facility] [address] WBC 2.65 L 4.50-11.00 RBC 5.29 4.23-5.66 HGB 15.7 12.8-17 HCT 46.2 39.2-50.4 MCV 87.3 82-99 MCHC 34.0 30.8-35.1 PLT 152 140-360 RDW-CV 11.5 L 12.0-16.0 MCH 29.7 26.2-32.6 Jan 30, 2022 11:25 [place] LIVER FUNCTION Specimen Typ e: SERUM AM [place] [facility] No comment enter ed. Ordering Provid er: YINA HAGAN Report Released Date/Time: Jan 30, 2022 10:32 AM Reporting Lab: [place] [facility] [facility] [address] [facility] [address] Performing Lab: [facility]ITALRL WSTRN [facility] [address] [facility] [address] PROTEIN,TOTAL 7.2 6.0-8.3 ALBUMIN 4.0 3.5-5.0 ALKALINE PHOSPHATASE 57 40-150 AST 37 H 5-34 ALT 36 <6-55 BILIRUBIN, TOTAL 0.9 0.2-1.2 Jan 30, 2022 11:25 [place] LIPID PANEL FASTING Specimen Type: SERUM AM [place] [facility] No comment enter ed. Ordering Provid er: YINA HAGAN Report Released Date/Time: Jan 30, 2022 10:32 AM Reporting Lab: [place] [facility] [address] [facility] [address] Performing Lab: [facility] [place] [facility] [address] [facility] [address] CHOLESTEROL 167 <7-199 TRIGLYCERIDE 112 0-150 LDL calculated 108 0-129 CHOL/HDL 4.5 HDL CHOLESTEROL 37 L 40-60 Jan 30, 2022 [place] [facility] BASIC METABOLIC PANEL Specimen Type: SERUM 11:25 AM [place] [facility] (fasting) No comment enter ed. Ordering Provid er: YINA HAGAN Report Released Date/Time: Jan 30, 2022 10:32 AM Reporting Lab: [facility] [place] [facility] [address] [facility] [address] Performing Lab: [facility] [place] [facility] [address] [facility] [address] UREA NITROGEN 13 7-25 GLUCOSE 102 H [...] CNTRL WSTRN [place] [facility] [address] [facility] [address] Performing Lab: [facility] [place] [facility] [address] [facility] [address] TSH 0.82 0.35-5.00 Jan 30, 2022 11:25 [place] [facility] [place] VITAMIN B12 S pecimen Type: SERUM AM [facility]CS No comment enter ed. Ordering Provid er: YINA HAGAN Report Released Date/Time: Jan 30, 2022 10:32 AM Reporting Lab: [facility] [place] [facility] [address] [facility] [address] Performing Lab: [facility] [place] [facility] [address] [facility] [address] VITAMIN B12 354 200-900 Jan 30, 2022 11:25 [place] [facility] VITAMIN D (25-[place]) Specimen T ype: SERUM AM [facility] No comment enter ed. Ordering Provid er: YINA HAGAN Report Released Date/Time: Jan 30, 2022 10:32 AM Reporting Lab: BANNERTRN [place] [facility] [address] [facility] [address] Performing Lab: [facility] [address] [facility] [address] VITAMIN D (25-OH) 38 20-50 Jan 30, 2022 [facility] HEMOGLOBIN A1C Specimen Type: BLOOD 11:25 AM [facility] PANEL Comment: Values obtained from A1C measurements can vary. For typical A1C assays, a reported value of 7.0 could actually be between 6.72 and 7.28 if measured by a reference method. A reported value of 9 .0 could actuall y be between 8.73 and 9.27. Ref: http://www.ngsp.org/CAPdata.asp Ordering Provid er: YINA HAGAN Report Released Date/Time: Jan 30, 2022 10:32 AM Reporting Lab: [facility]TRN [place] [facility] [address] [facility] [address] Performing Lab: [facility] [address] [facility] [address] HEMOGLOBIN A1C 4.6 4.0-5.6 Jan 30, 2022 [facility] W[facility]N MICROSCOPIC AUTOMATED, Specimen Type: URINE 11:25 AM [facility] URINE No comment enter ed. Ordering Provid er: YINA HAGAN Report Released Date/Time: Jan 30, 2022 10:32 AM Reporting Lab: [facility]ITALRR[facility]ITALTRN [place] [facility] [address] [facility] [address] Performing Lab: BANNERTRN [facility] [address] [facility] [address] UA WBC 0-5 0-5 UA MUCUS FEW Trace UA RBC 3-5 0-3 Jan 30, 2022 [facility] WSTRN DIFFERENTIAL, MANUAL Specimen T ype: BLOOD 11:25 AM [facility] Comment: Giant platelets present. SENT FOR PATHOLOGY REVIEW Ordering Provid er: YINA HAGAN Report Released Date/Time: Jan 30, 2022 10:32 AM Reporting Lab: [facility] WSTRN [place] [facility] [address] [facility] [address] Performing Lab: [facility] [address] [facility] [address] SEGS 47 L 48-78 BANDS 5 0-10 LYMPHS 16 10-55 MONOS 23 H 2-12 VARIANT LYMPHOCYTES 5 0-6 OTHER/CELL 4 Jan 30, 2022 11:25 [facility] URINALYSIS S pecimen Type: URINE AM [facility] No comment enter ed. Ordering Provid er: BENTLEY,YINA Report Released Date/Time: Jan 30, 2022 10:32 AM Reporting Lab: [facility] [address] [facility] [address] Performing Lab: [facility] [address] [facility] [address] UA COLOR Yellow Yellow UA APPEARANCE Clear Clear UA GLUCOSE Negative Negative UA KETONES Negative Neg UA BLOOD Moderate Neg UA PROTEIN 30 Neg UA NITRITE Negative Neg UA BILIRUBIN Negative Neg UA SPECIFIC GRAVITY 1.027 H 1.016-1.02 2 UA pH 5.0 5.0-9.0 UA UROBILINOGEN <2.0 <2.0 UA LEUKOCYTE ESTERASE Negative Neg Jan [facility] LYME Specimen Type: SERUM 14, WSTRN SEROLOGY Comment: The [facility] SEROLOGY PANEL was performed using the FDA-approved Demetrius YINA Borrelia burdorferi modified two-tier test system. This modified methodology uses a second EIA in place of a western imm 2021 [place] PANEL unoblot assay, [facility] the FDA has determined is substantially equivalent to or better than standard two-tier testing using western blot. Supplemental testing with a second EIA meets CDC guidelines for 11:25 [facility] Lyme disease aren ting. Performance characteristics of the panel were validated at the [place] [facility]. Results are considered [...] and local health departments, if applicable. The [place] State Form U RL is: http://www.ct.gov/dph/dru/dph/infectious_diseases/pdf_forms_/bu18_ozot.pdf Ordering Provid er: BENTLEYYINA Report Released Date/Time: Feb 03, 2022 12:51 PM Reporting Lab: [place] [facility] [facility] [address] [facility] [id number] Performing Lab: [facility] [address] [facility] [id number] TIER 1 LYME SCREENING EIA Negative Nega tive LYME AB FINAL INTERPRETATION Negative N egative Jan 30, 2022 11:25 [facility] ([facility]) Specimen Type: BLOOD AM [facility] Comment: [id number] Ordering Provid er: YINA HAGAN Report Released Date/Time: Jan 30, 2022 12:51 PM Reporting Lab: [facility] [address] [facility] [id number] Performing Lab: [facility] [address] [facility] [id number] SMEAR CONSULT ([facility]) comment Vital Signs: All taken on the [...] 2021 02:30 PM VA-TOBACCO NEVER USED [facility] Encounter Notes: All associated encounter notes This section contains the clinical notes associated to the Encounter. Date/Time Encounter Note(s) Provider Source Jan 30, 2022 11:42 AM PRIMARY [facility]ARE NOTE: LUCIAN DOUGLASS IL C NTRL WSTRN LOCAL TITLE: WALK-IN NOTE PRIMARY CARE (T) [facility] STANDARD TITLE: PRIMARY CARE NOTE DATE OF NOTE: JAN 30, 2022@11:42 ENTRY DATE: JAN 30, 2022@11:42:15 AUTHOR: LUCIAN DOUGLASS EXP COSIGNER: URGENCY: STATUS: COMPLETED <====Click to Start [facility] presents to the Primary Care clinic with the following request: [ ]Medication Renewal/Refill [ ]Consultation with Team RN [ X ]Symptoms rash and chest pain [ ]Other [facility] states they are: [ X ]Waiting [ ]Not Waiting Yes Walk in visit scheduled with PACT Nurse [ X ] At this encounter the 's demographi cs were verified. [ X ] At this encounter the [facility]'s Insurance information was verified. [ X ] At this encounter the below scheduled visi ts for the [facility] were discussed and appointment reminder card wa s offered. Future appointments: 01/30/2022 11:45 CWM/NO/PAC T 7 NURSE 02/04/2022 14:15 CWM/NO/DENTAL/DMD1 PM 02/06/2022 16:00 CWM/NO/MHC/MER/TELE 02/07/2022 13:00 CWM/NO/PACT 7 02/14/2022 14:00 NHM/MHC/MER 02/24/2022 15:30 CWM/NO/TH/VVC/MHC/NARCISO 08/28/2022 09:30 CWM/NO/OPTOMETRY/THADDEUS /ivelisse/ LUCIAN DOUGLASS [employer] Signed: 01/30/2022 11:42 Receipt Acknowledged By: * AWAITING SIGNATURE * NEDRA ROSS
--- OUTSIDE RECORDS SUMMARY | 2022-04-18 10:02 | XMS_ITS | Encounter Summary ---
:1990 Author Organization Department of [facility] rs Address [address] [place] [address] Support Name Relationship Address Phone TETE TRAN Unavailable [address] [facility] [place] [address] THOMAS MONTOYA Unavailable [address] [place] [address] Insurance Providers: All historical and current Section Date Range: From patient's date of to the date document was created.This section includes the names of all active insurance providers for the patient. Insurance Type of Plan Start of End of Group Member Insurance Policy P atient's Provider Coverage Name Policy Policy Number ID Provider's Ojeda's Relationship Coverage Coverage Telephone Name to Policy Number Ojeda [facility] Aug 03, [id number] [phone] ROSINA CALLAHAN PATIENT BEE BROOKS [id number] STEPHANIE JOHNSON [facility] ORGANIZ E DEPT Selected Encounter This section includes the information on record at [place] for the Encounter. Date/Time Encounter Type Encounter Reason Provider Source Description Jan 30, 2022 OFFICE O/P EST PRIMARY ICD-10-CM YINA HAGAN 01:00 PM MOD 30-39 MIN CARE/MEDICINE S20.461A Insect bite (nonvenomous) of right back wall of thorax, init with Provider Comments: Insect Bite (Nonvenomous) of right Back Wall of Thorax, Initial Encounter IHE Encounter Template Text not used by [facility] Assessments - Encounter Diagnoses This section includes the primary and secondary diagnoses documented for the Encounter. Date/Time Primary/Secondary Diagnosis Name Provider Source Diagnosis Jan 30, 2022 PRIMARY Insect bite YINA HAGAN [place] [facility] 01:26 PM (nonvenomous) [place] [facility] S of right back wall of thorax, init Plan of Treatment: Future Appointments (+ 6 months) and Future Tests (+/- 45 days) The Plan of Treatment section includes future care activities for the patient from all [facility]. This section includes future appointments and future orders which are active, pending orscheduled.Future Appointments This section includes appointments that were scheduled to occur 6 months from the date of the Encounter, up to a maximum of 20 appointments. The data comes from all [place] treatment facilities. Appointment Date/Time Appointment Type Appointment Facili ty Name Feb 04, 2022 02:15 PM AMBULATORY - NONE [facility] [place] [facility] Feb 06, 2022 04:00 PM AMBULATORY - PSYCHIATRY [facility] [place] [facility] Feb 07, 2022 01:00 PM AMBULATORY - MEDICINE [facility] [place] [facility] Feb 10, 2022 01:15 PM AMBULATORY - MEDICINE [facility] [place] [facility] Feb 10, 2022 01:45 PM AMBULATORY - MEDICINE [facility] [place] [facility] Feb 12, 2022 09:00 AM AMBULATORY - PSYCHIATRY [facility] [place] [facility] Feb 14, 2022 12:00 PM AMBULATORY - PSYCHIATRY [facility] [place] [facility] Feb 25, 2022 01:00 PM AMBULATORY - PSYCHIATRY [facility] [place] [facility] Feb 27, 2022 02:00 PM AMBULATORY - PSYCHIATRY [facility] [place] [facility] Mar 17, 2022 03:00 PM AMBULATORY - PSYCHIATRY [facility] [place] [facility] Mar 28, 2022 09:00 AM AMBULATORY - PSYCHIATRY [facility] [place] [facility] Apr 17, 2022 01:00 PM AMBULATORY - NONE [facility] [place] [facility] Apr 25, 2022 09:00 AM AMBULATORY - PSYCHIATRY [facility] [place] [facility] May 09, 2022 09:00 AM AMBULATORY - PSYCHIATRY [facility] [place] [facility] May 23, 2022 09:00 AM AMBULATORY - PSYCHIATRY [facility] [place] [facility] Jul 17, 2022 08:30 AM AMBULATORY - NONE [facility] [place] [facility] Lab Results: +/- 30 days of the encounter This section includes the Chemistry and Hematology Lab Results on record with [place] for the patient. Radiology Reports and Pathology Reports are provided separately, in subsequent sections.Lab Results This section contains the Chemistry/Hematology Results that were resulted 30 days before or 30 daysafter the date of the Encounter. Date/Time Source Result Type Result - Unit Interpretation Reference Range Comment Feb 07, 2022 [facility] BRUCELLA ANTIBODY, Specimen Typ e: SERUM 01:43 PM [facility] [facility] AGGLUTINATION Comment: REFERE NCE RANGE: <1:80 The [...] performance characteri stics have been determined by [employer]. It has not been cleared or approved by FDA. This assay has been validated pursuant to the CLIA regulations and is used for clinical purposes. Test perfor med by [facility] [facility] [id number] [place], [place] [id number] Process Manufacturing Engineer: Alejandrina Quick MD,PHD,[place] Test performed at [employer], [place], [place]. Ordering Provid er: DIMITRI WYLIE Report Released Date/Time: Feb 07, 2022 01:27 PM Reporting Lab: [facility] [address] [facility] [address] Performing Lab: [facility] [place] [facility] [address] [facility], [address] [facility] [address] BRUCELLA ANTIBODY, AGGLUTINATION <1:80 Feb 07, 2022 [facility] BABESIA MICROTI Specimen Type: SERUM 01:43 PM [facility] [facility] ANTIBODIES (IgG, Comment: REFER ENCE RANGE: <1:64 [...] analytical performance characteristics have been determined by [place] It has not been cleared or approved by the U.S. Food and Drug A dministration. T his assay has been validated pursuant to the CLIA regulations and is used for clinical purposes. Test Performed by [facility], [facility], [address] [address], [place] Ronald Abdul M.D., Ph.D., Director of Laboratories , CLIA [id number] TEST PERFORMED AT: , Ordering Provid er: DIMITRI WYLIE Report Released Date/Time: Feb 07, 2022 01:29 PM Reporting Lab: [facility] [address] [facility] [address] Performing Lab: [facility] [address] [facility], [address] [facility] [address] Babesia microti IgG <1:64 SEE BELOW Babesia microti IgM <1:20 SEE BELOW BABESIA MICROTI AB INTER SEE NOTE Feb 07, 2022 [facility] ANAPLASMA AND Specimen Type: SERUM 01:43 PM [facility] EHRLICHIA AB PANEL Comment: REF ERENCE RANGE: [...] performance c haracteristics have been determined by ? [place], [place]. It has not been cleared or [...] analytical performance characteristics have been determined by [place]. It has not been cleared or approved by the U.S. Food and Drug Administration. This assay has been validated pursuant to the CLIA regulations and is used for clinical purposes. Test Performed by [facility], [facility], [address] [place] [address] Ronald Abdul M.D., Ph.D., Director of Laboratories , CLIA [id number] TEST PERFORMED AT: , Ordering Provid er: DIMITRI WYLIE Report Released Date/Time: Feb 07, 2022 01:33 PM Reporting Lab: [facility] [address] [facility] [address] Performing Lab: [facility] [address] [facility], [address] [facility] [address] E. chaffeensis Ab IgG <1:64 SEE BELO W E. chaffeensis Ab IgM <1:20 SEE BELO W A.phagocytophilum Ab IgG <1:64 SEE B ELOW A.phagocytophilum Ab IgM <1:20 SEE B ELOW EHRLICHIA CHAFFEENSIS AB INTER SEE NOTE A. phagocytophilum inter SEE NOTE Feb 07, 2022 [facility] BABESIA MICROTI, Specimen Type: BLOOD 01:43 PM [facility] DNA PCR(WHV) Comment: The an alytical performance characteristics of this test have been determined by [facility]. It has not been cleared by the FDA. Ordering Provid er: DIMITRI WYLIE Report Released Date/Time: Feb 07, 2022 01:29 PM Reporting Lab: [facility] [address] [facility] [address] Performing Lab: [facility] [address] [facility] [address] BABESIA MICROTI, DNA PCR(V) Not Detected Not Detected Feb 07, 2022 [facility] RICKETTSIA ANTIBODY Specimen Ty pe: SERUM 01:43 [facility] PANEL (Q) Comment: Test P erformed by [facility], [employer] [facility], [address] [place] [address] Ronald Abdul M.D., Ph.D., Director of Laboratories , [place] [id number] TEST PERFORMED AT: , Ordering Provid er: DIMITRI WYLIE Report Released Date/Time: Feb 07, 2022 01:33 PM Reporting Lab: [facility] [address] [facility] [address] Performing Lab: [facility] [address], [address] [place] [address] RMSF IgG Not Detected Not Detected RMSF IgM Not Detected Not Detected R. typhi IgM Not Detected Not Detected Jan [facility] LYME Specimen Type: SERUM 22, WSTRN SEROLOGY Comment: The re sults are supportive evidence for the presence of antibodies and exposure to Borrelia burgdorferi. The LYME SEROLOGY PANEL was performed using the FDA-approved Demetrius YINA Borrelia burdor 2021 [facility] PANEL feri modified tw o-tier test system. This modified methodology uses a second EIA in place of a western immunoblot assay, which the FDA has determined is substantially equivalent to or better than stand 01:43 [facility] damaris two-tier aren ting using western blot. Supplemental testing with a second EIA meets CDC guidelines for Lyme disease testing. Performance characteristics of the panel were validated at the [facility]. Results are considered positive [...] and local health departments, if applicable. The [place] State Form URL is: http://www.[place].gov/dp/dru/dph/infectious_diseases/pdf_forms_/ek13_kwwc.pdf Ordering Provid er: DIMITRI WYLIE Report Released Date/Time: Feb 07, 2022 07:49 AM Reporting Lab: [facility] [facility] [address] [facility] [address] Performing Lab: [facility] Pharm[facility] [address] [facility] [address] TIER 1 LYME SCREENING EIA Presumptive Positive Negative LYME AB FINAL INTERPRETATION POSITIVE HH N egative TIER 2 LYME EIA,IgG Negative Negative TIER 2 LYME EIA,IgM POSITIVE HH Negative Feb 07, 2022 01:43 PM [facility] [place] FOLATE Specimen Type: SERUM [facility] No comment enter ed. Ordering Provid er: DIMITRI WYLIE Report Released Date/Time: Feb 07, 2022 07:49 AM Reporting Lab: [facility] Idib[facility]N Constant Therapy[place] [facility] [address] [facility] [address] Performing Lab: [facility] [address] [facility] [address] FOLATE 12.99 >5.2 Feb 07, 2022 [facility] C REACTIVE PROTEIN Specimen Typ e: SERUM 01:43 PM [facility] (CRP) Comment: Refere nce range changed on 01/07/11 CRP reference ranges for ages >17 years: hsCRP [...] infection and inflammation. Ordering Provid er: DIMITRI WYLIE Report Released Date/Time: Feb 07, 2022 01:18 PM Reporting Lab: [facility] [address] [facility] [address] Performing Lab: [facility] [address] [facility] [address] C REACTIVE PROTEIN (CRP) 2.32 See eval. Feb 07, 2022 [facility] MALARIA/BABESIA EXAM Specimen T ype: BLOOD 01:43 PM [facility] Comment: Due to the cyclical shed rates of these parasites, one negative specimen does not rule out the possibility of a parasitic infection. Obtain specimens at 6-hour intervals for 36 hours for a com prehensive exami nation. Test Performed by [employer], [facility], [address] [place] [address] Ronald Abdul M.D., Ph.D., Director of Laboratories , [place] [id number] TEST PERFORMED AT: , Ordering Provid er: DIMITRI WYLIE Report Released Date/Time: Feb 07, 2022 01:29 PM Reporting Lab: [facility] [address] [facility] [address] Performing Lab: [facility] [address], [address] [facility] [address] MALARIA/BABESIA EXAM Negative Negative Feb 07, 2022 [facility] CORA SCREEN/TITER Specimen Type: SERUM 01:43 PM [facility] [facility] No comment enter ed. Ordering Provid er: DIMITRI WYLIE Report Released Date/Time: Feb 07, 2022 01:29 PM Reporting Lab: [facility] [place] [facility] [address] [facility] [address] Performing Lab: [facility] [place] [facility] [address] [facility] [address] CORA SCREEN NEG NEG <1:40 Feb 07, 2022 01:43 [facility] VITAMIN B12 Specimen Typ e: SERUM PM [place] [facility] No comment enter ed. Ordering Provid er: DIMITRI WYLIE Report Released Date/Time: Feb 07, 2022 07:49 AM Reporting Lab: [facility] [place] [facility] [address] [facility] [address] Performing Lab: [facility] [place] [facility] [address] [facility] [address] VITAMIN B12 593 200-900 Feb 07, 2022 [facility] SED RATE, AUTOMATED Specimen Ty pe: BLOOD 01:43 PM [place] [facility] No comment enter ed. Ordering Provid er: DIMITRI WYLIE Report Released Date/Time: Feb 07, 2022 01:18 PM Reporting Lab: [facility] [place] [facility] [address] [facility] [address] Performing Lab: [facility] [place] [facility] [address] [facility] [address] SED RATE, AUTOMATED 9 0-15 Feb 07, 2022 [facility] URINALYSIS CLEAN Specimen Type: URINE 01:43 PM [place] [facility] CATCH No comment enter ed. Ordering Provid er: DIMITRI WYLIE Report Released Date/Time: Feb 07, 2022 07:50 AM Reporting Lab: [facility] [place] [facility] [address] [facility] [address] Performing Lab: [facility] [place] [facility] [address] [facility] [address] UA COLOR Yellow Yellow UA APPEARANCE Clear Clear UA GLUCOSE Negative Negative UA KETONES Negative Neg UA BLOOD Negative Neg UA PROTEIN Negative Neg UA NITRITE Negative Neg UA BILIRUBIN Negative Neg UA SPECIFIC GRAVITY 1.017 1.016-1.02 2 UA pH 6.0 5.0-9.0 UA UROBILINOGEN <2.0 <2.0 UA LEUKOCYTE ESTERASE Negative Neg Feb 07, 2022 [place] [facility] CBC AND DIFF Specimen Type: BLOOD 01:43 PM [facility] (AUTO) No comment enter ed. Ordering Provid er: DIMITRI WYLIE Report Released Date/Time: Feb 07, 2022 07:49 AM Reporting Lab: [facility] [address] [facility] [address] Performing Lab: [address] [address] WBC 6.22 4.50-11.00 RBC 5.24 4.23-5.66 HGB 15.7 12.8-17 HCT 44.8 39.2-50.4 MCV 85.5 82-99 MCHC 35.0 30.8-35.1 PLT 390 H 140-360 RDW-CV 11.4 L 12.0-16.0 [place], Abs 0.46 0.30-1.10 MCH 30.0 26.2-32.6 Neut % 60.2 Lymph % 30.1 [place] % 7.4 Eos % 1.1 Baso % 0.6 Neut, Abs 3.74 2.20-7.60 Lymph, Abs 1.87 1.00-3.20 Eos, Abs 0.07 0.03-0.44 Baso, Abs 0.04 0.01-0.13 Immature Gran % 0.6 Immature Gran, Abs 0.04 0.00-0.06 Jan 30, 2022 11:25 [place] [facility] THYROID TOTAL T4 Specimen Ty pe: SERUM AM [facility] No comment enter ed. Ordering Provid er: YINA HAGAN Report Released Date/Time: Jan 30, 2022 10:32 AM Reporting Lab: [address] [address] Performing Lab: [facility] [place] [facility] [address] [facility] [address] THYROID TOTAL T4 8.86 4.5-12.0 Jan 30, 2022 [facility] TESTOSTERONE, TOTAL Specimen Ty pe: SERUM 11:25 AM [place] [facility] No comment enter ed. Ordering Provid er: YINA HAGAN Report Released Date/Time: Jan 30, 2022 10:32 AM Reporting Lab: [place] [facility] [facility] [address] [facility] [address] Performing Lab: [place] [facility] [facility] [address] [facility] [address] TESTOSTERONE, TOTAL 525.91 220.00-892 .00 Jan 30, 2022 11:25 [facility] LIVER FUNCTION Specimen Typ e: SERUM AM [place] [facility] No comment enter ed. Ordering Provid er: YINA HAGAN Report Released Date/Time: Jan 30, 2022 10:32 AM Reporting Lab: [place] [facility] [place] [facility] [address] [facility] [address] Performing Lab: [facility] [place] [facility] [address] [facility] [address] PROTEIN,TOTAL 7.2 6.0-8.3 ALBUMIN 4.0 3.5-5.0 ALKALINE PHOSPHATASE 57 40-150 AST 37 H 5-34 ALT 36 <6-55 BILIRUBIN, TOTAL 0.9 0.2-1.2 Jan 30, 2022 11:25 [facility] CBC AND DIFF Specimen Typ e: BLOOD AM [place] [facility] (AUTO) No comment enter ed. Ordering Provid er: YINA HAGNA Report Released Date/Time: Jan 30, 2022 10:32 AM Reporting Lab: [place] [facility] [facility] [address] [facility] [address] Performing Lab: [place] [facility] [facility] [address] [facility] [address] WBC 2.65 L 4.50-11.00 RBC 5.29 4.23-5.66 [...] CNTRL [facility] [place] [facility] [address] [facility] [address] Performing Lab: [facility] [place] [facility] [address] [facility] [address] CHOLESTEROL 167 <7-199 TRIGLYCERIDE 112 0-150 LDL calculated 108 0-129 CHOL/HDL 4.5 HDL CHOLESTEROL 37 L 40-60 Jan 30, 2022 [facility] BASIC METABOLIC PANEL Specimen Type: SERUM 11:25 AM [place] [facility] (fasting) No comment enter ed. Ordering Provid er: YINA HAGAN Report Released Date/Time: Jan 30, 2022 10:32 AM Reporting Lab: [facility] [place] [facility] [address] [facility] [address] Performing Lab: [facility] [place] [facility] [address] [facility] [address] UREA NITROGEN 13 7-25 GLUCOSE 102 H [...] CNTRL [facility]STRN [place] [facility] [address] [facility] [address] Performing Lab: [facility] [place] [facility] [address] [facility] [address] TSH 0.82 0.35-5.00 Jan 30, 2022 [facility] HEMOGLOBIN A1C Specimen Type: BLOOD 11:25 AM [facility] PANEL Comment: Values obtained from A1C measurements can vary. For typical A1C assays, a reported value of 7.0 could actually be between 6.72 and 7.28 if measured by a reference method. A reported value of 9 .0 could actuall y be between 8.73 and 9.27. Ref: http://www.ngsp.org/CAPdata.asp Ordering Provid er: YINA HAGAN Report Released Date/Time: Jan 30, 2022 10:32 AM Reporting Lab: [place] [facility] [facility] [address] [facility] [address] Performing Lab: [place] [facility] [facility] [address] [facility] [address] HEMOGLOBIN A1C 4.6 4.0-5.6 Jan 30, 2022 11:25 [facility] [place] VITAMIN B12 S pecimen Type: SERUM AM HCS No comment enter ed. Ordering Provid er: YINA HAGAN Report Released Date/Time: Jan 30, 2022 10:32 AM Reporting Lab: [place] [facility] [place] [facility] [address] [facility] [address] Performing Lab: [place] [facility] [place] [facility] [address] [facility] [address] VITAMIN B12 354 200-900 Jan 30, 2022 11:25 [place] [facility] VITAMIN D (25-[place]) Specimen T ype: SERUM AM [facility] No comment enter ed. Ordering Provid er: YINA HAGAN Report Released Date/Time: Jan 30, 2022 10:32 AM Reporting Lab: [facility] [place] [facility] [address] [facility] [address] Performing Lab: [place] [facility] [facility] [address] [facility] [address] VITAMIN D (25-[place]) 38 20-50 Jan 30, 2022 [facility] MICROSCOPIC AUTOMATED, Specimen Type: URINE 11:25 AM [facility] URINE No comment enter ed. Ordering Provid er: YINA HAGAN Report Released Date/Time: Jan 30, 2022 10:32 AM Reporting Lab: [facility] [place] [facility] [address] [facility] [address] Performing Lab: [facility] [place] [facility] [address] [facility] [address] UA WBC 0-5 0-5 UA MUCUS FEW Trace UA RBC 3-5 0-3 Jan 30, 2022 [facility] DIFFERENTIAL, MANUAL Specimen T ype: BLOOD 11:25 AM [facility] Comment: Giant platelets present. SENT FOR PATHOLOGY REVIEW Ordering Provid er: YINA HAGAN Report Released Date/Time: Jan 30, 2022 10:32 AM Reporting Lab: [facility] [address] [facility] [address] Performing Lab: [facility] [address] [facility] [address] SEGS 47 L 48-78 BANDS 5 0-10 LYMPHS 16 10-55 MONOS 23 H 2-12 VARIANT LYMPHOCYTES 5 0-6 OTHER/CELL 4 Jan 30, 2022 11:25 [facility] [place] URINALYSIS S pecimen Type: URINE AM HCS No comment enter ed. Ordering Provid er: YINA HAGAN Report Released Date/Time: Jan 30, 2022 10:32 AM Reporting Lab: [facility] [address] [facility] [address] Performing Lab: [facility] [address] [facility] [address] UA COLOR Yellow Yellow UA APPEARANCE Clear Clear UA GLUCOSE Negative Negative UA KETONES Negative Neg UA BLOOD Moderate Neg UA PROTEIN 30 Neg UA NITRITE Negative Neg UA BILIRUBIN Negative Neg UA SPECIFIC GRAVITY 1.027 H 1.016-1.02 2 UA pH 5.0 5.0-9.0 UA UROBILINOGEN <2.0 <2.0 UA LEUKOCYTE ESTERASE Negative Neg Jan [facility] LYME Specimen Type: SERUM 14, WSTRN SEROLOGY Comment: The LY ME SEROLOGY PANEL was performed using the FDA-approved Demetrius YINA Borrelia burdorferi modified two-tier test system. This modified methodology uses a second EIA in place of a western imm 2021 [place] PANEL unoblot assay, w [facility] the FDA has determined is substantially equivalent to or better than standard two-tier testing using western blot. Supplemental testing with a second EIA meets CDC guidelines for 11:25 [facility] Lyme disease aren ting. Performance characteristics [...] and local health departments, if applicable. The [place] State Form U RL is: http://www.[place].gov/dph/dru/dph/infectious_diseases/pdf_forms_/do54_vvjl.pdf Ordering Provid er: YINA HAGAN Report Released Date/Time: Feb 03, 2022 12:51 PM Reporting Lab: [facility] WSN [facility] [address] [facility] [address] Performing Lab: [facility] WSN [facility] [address] [facility] [address] TIER 1 LYME SCREENING EIA Negative Nega tive LYME AB FINAL INTERPRETATION Negative N egative Jan 30, 2022 11:25 [facility] WSN SMEAR CONSULT (WH[facility]) Specimen Type: BLOOD AM [facility] Comment: SEE HE [id number] Ordering Provid er: YINA HAGAN Report Released Date/Time: Jan 30, 2022 12:51 PM Reporting Lab: [facility] [place] [facility] [address] [facility] [id number] Performing Lab: [facility] [place] [facility] [address] [facility] [id number] SMEAR CONSULT ([facility]) comment Vital Signs: All taken on the encounter date This section contains inpatient and outpatient Vital Signs collected on the date of the Encounter. Date/Time Temperature Pulse Blood Respiratory SP02 Pain Height Weight Aleksandr dy Source Pressure Rate Mass Index Jan 30, 102.1 F 91 120/70 20 /min 100 % 7 178 lb 27 [place] 2021 12:13 /min mm[Hg] CNTRL PM [facility] [place] [facility] Social History: Smoking Status (Most current) and Tobacco Use (All prior to encounter date) This section includes the most current, and the historical, smoking and tobacco-related health factors from the [place] facility where the Encounter took place.Current Smoking Status This section includes the most current smoking, or tobacco-related health factor, from the [place] facility where the Encounter took place. Date/Time Current Smoking Status Comment Facility May 23, 2021 02:30 PM VA-TOBACCO NEVER USED [place] C NTRL WSN [facility] Encounter Notes: All associated encounter notes This section contains the clinical notes associated to the Encounter. Date/Time Encounter Note(s) Provider Source Jan 30, 2022 01:05 PRIMARY CARE NURSE PRACTITIONER OUTPATIE NT NOTE: YINA HAGAN [place] CNTRL WSTRN LOCAL TITLE: NURSE PRACTITIONER OUTPATIENT NOTE [facility] STANDARD TITLE: PRIMARY CARE NURSE PRACTITIONER OUTPATIENT NOTE DATE OF NOTE: JAN 30, 2022@13:05 ENTRY DATE: JAN 30, 2022@13:05:13 AUTHOR: YINA HAGAN EXP COSIGNER: URGENCY: STATUS: COMPLETED Chief complaint:Pt is a 31 who comes in for follow up of medical problems as noted below. HPI: Patient awoke this morn ing with a fever, rash, chest pain, chills, sweats, headache, lower abdominal pain, and enla rged lymph node in his right groin. No SOB N/V/D. The chest pain started on Thu and [place] [facility] [place] was told it was costochond[place]. He has been olivia ing Tylenol and ibuprofen for pain/fever. Temp now is 102.1. He reports having a tick bite 12/17/21 that he removed himself. Did not seek treatment. PMH: Active problems - Computerized Problem List is t he source for the followin. Bilateral shoulder joint pain 2. 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 Low back pain X-RAY, L-Spine 2012: some Scol iosis 6. Benign hypertension US, Renal JUN 01: +Benig n Cysts R Side; None L Side 7. Posttraumatic stress disorder (SNOMED CT 475 [id number]) updated. Allergies: Patient has answered NKA The following VA and Non-VA meds were reconciled with patient: Active and Recently Outpatient Medicatio ns (excluding Supplies): Active Outpatient Medications Status 1) BUPROPION 150MG [...] BY MOUTH AT BEDTIME NEEDED FOR SLEEP SH: SERVICE CONNECTED % - 100 MARITAL STATUS - Review of systems: RESP denies SOB, cough CV +CP, On examination: 120/70 (01/30/2022 12:13) 102.1 F [38.9 C] (01/30/2022 12:13) 20 (01/30/2022 12:13) 91 (01/30/2022 12:13) 7 (01/30/2022 12:13) BMI: 27.1 178 lb [80.74 kg] (01/30/2022 12:13) pt is alert and oriented x4. NAD. NECK: supple, no JVD, lymph nodes not palpable, no nuchal rigidity CVS: regular rate and rhythm normal S1S2 no S3 o r Murmur Lungs: clear to auscultation throughout DERM: diffuse rash over legs, trunk, back, eryth mary migrans lower left flank. Get up and go normal without assistive device. WBC/HPF: 0-5 RBC/HPF: 3-5 MUCUS: FEW Color, Urine (AX 4280): Yellow Appearance, Urine (AX 4280): Clear Glucose, Urine (AX 4280): Negative Ketones, Urine (AX 4280): Negative Blood, Urine (AX 4280): Moderate Protein, Urine (AX 4280): 30 Nitrite, Urine (AX 4280): Negative Bilirubin, Urine (AX 4280): Negative Specific [place], (AX 4280): 1.027 H pH, Urine (SZ5272): 5.0 Urobilinogen, Urine (AX 4280): <2.0 Leukocyte Esterase, (AX 4280): Negative HGB A1C (WR): 4.6 WBC: 2.65 L RBC: 5.29 HGB: 15.7 HCT: 46.2 MCV: 87.3 MCHC: 34.0 RDW: 11.5 L PLT: 152 SEGS: 47 L BANDS: 5 LYMPHS: 16 MONOCYTES: 23 H VARIANT LYMPHOCYTES: 5 OTHER: 4 MCH: 29.7 Future Clinic Visits 02/04/2022 14:15 CWM/NO/DENTAL/DMD1 PM 02/06/2022 16:00 CWM/NO/MHC/MER/TELE 02/07/2022 13:00 CWM/NO/PACT 7 02/14/2022 14:00 NHM/MHC/MER 02/24/2022 15:30 CWM/NO/TH/VVC/MHC/NARCISO 08/28/2022 09:30 CWM/NO/OPTOMETRY/MERHAR All diagnostics from past month were reviewed wi th patient. Assessment/plan: Patient needs a higher level of care to r/o Lyme carditis or other tick borne illnesses. Patient will go to [facility] ER. Medication Reconciliation: Outpatient: Has the patient been [...] whether with a VA or non-VA provider. Allergies/ADRs (Tool #5) FACILITY ALLERGY/ADR -------- [facility] D NO KNOWN ALLERGIES [place] [facility] [place] [facility] No Known Allergi es Med Recon NoGlossary (Tool #1) INCLUDED IN THIS LIST: Alphabetical list of act cristy outpatient prescriptions dispensed from this VA (local) an d dispensed from another VA or [facility] facility (remote) as well as inpatien t orders (local pending and active), local clinic medications, locally docu mented non-VA medications, and local prescriptions that have or be en discontinued in the past 90 days. Non-VA Meds Last Documented On: Jan 27, 2019 NOTE The display of VA prescriptions disp ensed from another [place] or [facility] facility (remote) is limited to active outp atient prescription entries matched to National Drug File at the [facility] [place] site and may not include some items such as investigational drugs, compo unds, etc. NOT INCLUDED IN THIS LIST: Medications self-ent ered by the patient into personal health records (i.e. [facility]) ar e NOT included in this list. Non-VA medications documented outside [facility] [place], remote inpatient orders (regardless of status) and remote clinic medications are NOT included in this list. The patient and provider must always discuss medications the patient is taking, regardless o f where the medication was dispensed or obtained. OUTPT BUPROPION 150MG 24HR XL TAB (ONCE DAILY) (Status = Discontinued) TAKE THREE TABLETS BY MOUTH EVERY MORNING FOR D EPRESSION/ANXIETY DOSE INCREASE Rx# [id number] Last Released: 12/21/21 Qty/Days Supp ly: 270/90 Rx Expiration Date: 12/20/22 Refills Remainin OUTPT BUPROPION 150MG 24HR XL TAB (ONCE DAILY) (Status = Active) TAKE THREE TABLETS BY MOUTH EVERY MORNING FOR D EPRESSION/ANXIETY DOSE INCREASE Rx# [id number] Last Released: 01/25/22 Qty/Days Supp ly: 90/30 Rx Expiration Date: 01/24/23 Refills Remainin OUTPT BUPROPION HCL 150MG 12HR SA TAB (Status = Discontinued) TAKE ONE TABLET BY MOUTH TWICE DAILY FOR DEPRES PHANI AND ANXIETY. DOSE INCREASE. Rx# [id number] Last Released: 09/19/21 Qty/Days Supp ly: 180/90 Rx Expiration Date: 09/17/22 Refills Remainin OUTPT BUPROPION HCL 300MG 24HR SA TAB (Status = Discontinued) TAKE ONE TABLET BY MOUTH EVERY MORNING FOR DEPR ESSION/ANXIETY Rx# [id number] Last Released: 11/14/21 Qty/Days Sup ply: 90/90 Rx Expiration Date: 11/13/22 Refills Remainin OUTPT CARBOXYMETHYLCELLULOSE 0.5% OPH SOLN (Sta tus = Active) INSTILL 1 DROP INTO EACH EYE FOUR TIMES A DAY Rx# [id number] Last Released: 01/08/22 Qty/Days Sup ply: 15 Rx Expiration Date: 07/12/22 Refills Remainin OUTPT ESCITALOPRAM OXALATE 20MG TAB (Status = D iscontinued) TAKE ONE TABLET BY MOUTH EVERY MORNING FOR MOOD /DEPRESSION Rx# [id number] Last Released: 09/19/21 Qty/Days Supp ly: Rx Expiration Date: 09/17/22 Refills Remainin OUTPT ESCITALOPRAM OXALATE 20MG TAB (Status = A ctive) TAKE ONE TABLET BY MOUTH EVERY MORNING FOR MOOD /DEPRESSION Rx# [id number] Last Released: 01/08/22 Qty/Days Sup ply: Rx Expiration Date: 12/20/22 Refills Remainin OUTPT GABAPENTIN 400MG CAP (Status = Discontinu ed) TAKE ONE CAPSULE BY MOUTH FOUR TIMES A DAY FOR ANXIETY. Rx# [id number] Last Released: 09/19/21 Qty/Days Supp ly: 120 Rx Expiration Date: 09/17/22 Refills Remainin OUTPT GABAPENTIN 400MG CAP (Status = Active) TAKE ONE CAPSULE BY MOUTH FOUR TIMES A DAY FOR ANXIETY. Rx# [id number] Last Released: 01/08/22 Qty/Days Sup ply: 120/30 Rx Expiration Date: 12/20/22 Refills Remainin OUTPT LORAZEPAM 1MG TAB (Status = Active) TAKE ONE TABLET BY MOUTH ONCE DAILY NEEDED F OR ANXIETY/NERVES Rx# [id number] Last Released: 01/08/22 Qty/Days Sup ply: Rx Expiration Date: 05/15/22 Refills Remainin OUTPT PRAZOSIN HCL 2MG CAP (Status = Discontinu ed) TAKE FOUR CAPSULES BY MOUTH AT BEDTIME - OFF LA BEL USE FOR PTSD SYMPTOMS. DOSE INCREASE FROM 6 MG. Rx# [id number] Last Released: 09/19/21 Qty/Days Supp ly: 120/30 Rx Expiration Date: 09/17/22 Refills Remainin OUTPT PRAZOSIN HCL 2MG CAP (Status = Active) TAKE FOUR CAPSULES BY MOUTH AT BEDTIME - OFF LA BEL USE FOR PTSD SYMPTOMS. DOSE INCREASE FROM 6 MG. Rx# [id number] Last Released: 01/08/22 Qty/Days Sup ply: 120/30 Rx Expiration Date: 12/20/22 Refills Remainin OUTPT SODIUM FLUORIDE 1.1% TOOTHPASTE (Status = Active) BRUSH SMALL AMOUNT TO TEETH AT BEDTIME DIREC GINA FOR TWO MINUTES, IN PLACE OF YOUR REGULAR TOOTHPASTE. A FTER USE, SPIT OUT. FOR PREVENTION OF DENTAL CARIES AND SENSIT IVITY. Rx# [id number] Last Released: 01/08/22 Qty/Days Sup ply: 100/60 Rx Expiration Date: 08/14/22 Refills Remainin OUTPT TRAZODONE HCL 100MG TAB (Status = Discont inued) TAKE ONE AND ONE-HALF TABLETS BY MOUTH AT BEDTI ME NEEDED FOR SLEEP Rx# [id number] Last Released: 09/19/21 Qty/Days Supp ly: 4530 Rx Expiration Date: 09/17/22 Refills Remainin OUTPT TRAZODONE HCL 100MG TAB (Status = Active) TAKE ONE AND ONE-HALF TABLETS BY MOUTH AT BEDTI ME NEEDED FOR SLEEP Rx# [id number] Last Released: 01/08/22 Qty/Days Sup ply: 45/30 Rx Expiration Date: 12/20/22 Refills Remainin SUPPLIES /ivelisse/ YINA MONTANEZ NURSE PRACTITIONER Signed: 01/30/2022 13:26 Receipt Acknowledged By: 01/30/2022 13:29 /ivelisse/ Dimitri Wylie DNP, FN P-BC, CNL Primary Care Nurse Practitioner
--- OUTSIDE RECORDS SUMMARY | 2022-04-18 10:02 | XMS_ITS | Encounter Summary ---
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 health follow up. TREATMENT PLAN/ DISCUSSION/ RATIONALE: 1.::: Medication management: Reviewed medication s with George today. He continues on his regimen of lexapro 20 mg daily, wellbutrin XL 450 mg qAM Trazodone 150 mg qHS prn insomnia, gabapentin 40 0 mg QID, Prazosin 8 mg qHS and lorazepam 1 mg daily prn anxiety. George do esn't use the ativan daily anyway. He will continue in therapy with Enriqueta abdi and will call if he needs anything before his next appt. He has his safety plan and has numbers to crisis. Next Visit: in 1 month. Patient is aware of how to access [facility] clinic in [facility] during weekdays for immediate mental health n eeds if I am not available. Patient has capacity to make his own medication decisions at present time. I asked the patient to come for sooner appointment if the patient does not like the effect of psychiatric medication or if has s bernadette effects with psychiatric medication. The patient's primary care physician follows blo od pressure, weights, lipids, glucose The risk of priapism with trazodone was reviewed with the patient. The patient was instructed to get immediate medical attention if he has priapism. The risk of next-day sedation and of falling with trazodo ne was also reviewed with the patient. The patient feels benefits outweigh ris ks -- this is reasonable. The pt understands not to combine psychiatric [...] or call 911 for psychiatric emergencies, inc luding SI/HI. ::: SAFETY PLAN: Pt was educated about emergency services available at this facility e.g., ER) and in the community ([facility] [place] National Suicide Prevention Lifeline: 6-637- 361-TMNI). Patient is instructed to contact me should [...] whether with a VA or non-VA provider. /ivelisse/ DENISE STUART MD PSYCHIATRIST Signed: 01/23/2022 15:16 Jan 23, 2022 02:34 MENTAL HEALTH TREATMENT PLAN NOTE: HOWARD STUART CQJOSE LUIS NE [facility] LOCAL TITLE: MH TREATMENT PLAN [facility] STANDARD TITLE: MENTAL HEALTH TREATMENT PLAN NOT E DATE OF NOTE: JAN 23, 2022@14:34 ENTRY DATE: JAN 23, 2022@14:34:16 AUTHOR: DENISE STUART EXP COSIGNER: URGENCY: STATUS: COMPLETED MH TREATMENT PLAN - Jan, @ 02:34PM Visit Date: Jan, @ 14:30 - SUSIE/ZELALEM/EDWARD/LAZARAC/ NEFTALY/NARCISO MH MANUFACTURING CONTROLS ENGINEER: ANIVAL DEL ANGEL / COUNTS INCLUDE [facility] BEDS AT THE [facility] TEAM TEAM MEMBERS: THOMAS MIRANDA: CLINICAL NURSE SPECIALIST BRIANA HODEG: REGISTERED NURSE OLYA KERR: CONSULTING PSYCHIATRIST KRISTEN LOMELI: PSYCHOLOGIST RISK ASSESSMENT (DANGER TO SELF AND OTHERS): Low risk to self or others PATIENT'S PERCEPTION OF NEEDS AND PREFERENCES: Good insight into problem(s) and is actively add ressing the problem(s) PATIENT'S STRENGTHS/ABILITIES: Expressed desire/motivation for change Employed or has income/benefits Has supportive family and/or friends PATIENT'S BARRIERS TO CARE: Discontinues use of medication MENTAL HEALTH DIAGNOSES AND RELEVANT MEDICAL CON DITIONS: Posttraumatic Stress Disorder Specifiers: with panic attacks Major Depressive Disorder Specifiers: Severe Recurrent SIGNIFICANT PSYCHOSOCIAL AND CONTEXTUAL FACTORS: occupational stress TREATMENT PLAN: Problem: [PTSD and Depression] [place] has been experiencing the following posttraumatic stress symptoms: change s in mood and cognitions, nightmares, hypervigilance, and hyperarousal Goal: [place] wants to work on decreasing his symptoms of PTSD and increase his ability to access his emotions to better connect with his daughters and romantic partner. Objective: Using a phased-based trauma treatmen t approach, Baljeet will work with his provider to acquire coping and grounding skills, increase his social supports, improve his mood, and reduce distress from PTSD symptoms. Projected Target Date: 05/18/2020 Intervention: Individual Psychotherapy focusing on treatment adherence and preparing the to engage in an EBP for PTSD. Providers: Time Frame: One time per week for 3 months Treating Specialty: Mental Health Clinic Renewal Date: 01/23/2023 Entered Treatment: 02/08/2019 @ 03:53PM Anticipated Discharge: None Actual Discharge: None Intervention: Medication Management Providers: Time Frame: One time per month for 1 year Treating Specialty: Mental Health Clinic Renewal Date: 01/23/2023 Entered Treatment: 02/08/2019 @ 03:53PM Anticipated Discharge: None Actual Discharge: None UPDATED/RESOLVED/INACTIVATED PROBLEMS & COMMENTS : ACTIVE PROBLEM: [PTSD and Depression] Baljeet carter s been experiencing the following posttraumatic stress symptoms: change s in mood and cognitions, nightmares, hypervigilance, and hyperarousal Comments: Improved overall, though depression a nd PTSD still remain issues at times. 01/23/2022 Stable. Continues to experience PTSD symptoms a nd depression at times. Managing well. 01/24/2021 ACTIVE GOAL: Baljeet wants to work on decreasin g his symptoms of PTSD and increase his ability to access his emotions to better connect with his daughters and romantic partner . Comments: still active goal. 01/23/2022 (by DENISE STUART) Continues to be a goal. Baljeet completed a PTSD program in early 2020 that was very helpful in reducing his PTSD symptoms and helping him manage better. 01/24/2021 ACTIVE OBJECTIVE: Using a phased-based trauma t reatment approach, will work with his provider to acquire coping a nd grounding skills, increase his social supports, improve his mood, and reduce distress from PTSD symptom s. Comments: still pertinent 01/23/2022 (by DENISE STUART) Medication management and therapy. 01/24/2021 ACTIVE INTERVENTION: Medication Management Comments: RTC monthly or sooner as indicated. 01/23/2022 (by DENISE STUART) Medication management for PTSD and depressive symptoms. 01/24/2021 PATIENT PARTICIPATION IN TREATMENT PLANNING: MET WITH PROVIDER. PATIENT AGREED TO PLAN DISCUSSED. PATIENT INPUT: [place] agreed to plan that was discussed in ses lyndsey. FAMILY PARTICIPATION IN TREATMENT PLANNING: PATIENT'S FAMILY NOT AVAILABLE. COLLABORATION WITH OTHERS: Other: [facility] /ivelisse/ DENISE STUART MD PSYCHIATRIST Signed: 01/23/2022 14:34 Receipt Acknowledged By: 01/28/2022 15:55 /ivelisse/ ANIVAL DEL ANGEL BOOKBINDER APPRENTICE CLINICAL ACCESS REPRESENTATIVE
--- OUTSIDE RECORDS SUMMARY | 2022-04-18 10:03 | XMS_ITS | Encounter Summary ---
:1990 Author Organization Department [facility] rs Address [address] [place] [address] Support Name Relationship Address Phone TETE TRAN Unavailable [address] [facility] [address] THOMAS MONTOYA Unavailable [address] [place] [address] Insurance Providers: All historical and current Section Date Range: From patient's date of to the date document was created.This section includes the names of all active insurance providers for the patient. Insurance Type of Plan Start of End of Group Member Insurance Policy P atient's Provider Coverage Name Policy Policy Number ID Provider's Ojeda's Relationship Coverage Coverage Telephone Name to Policy Number Ojeda [facility] Aug 03, [id number] ROSA MARIA CowanWI PATIENT BEE GIMENEZ 2019 [id number] STEPHANIE JOHNSON [facility]GAN E DEPT Selected Encounter This section includes the information on record at [facility] for the Encounter. Date/Time Encounter Type Encounter Reason Provider Source Description Jan 09, 2022 PRO PHONE TELEPHONE ICD-10-CM F43.10 MER,DA 04:00 PM CALL 5-10 MIN Post-traumatic IE stress disorder, unspecified with Provider Comments: Posttraumatic stress disorder ([facility] [id number]) IHE Encounter Template Text not used by [facility] Assessments - Encounter Diagnoses This section includes the primary and secondary diagnoses documented for the Encounter. Date/Time Primary/Secondary Diagnosis Name Provider Source Diagnosis Jan 09, 2022 PRIMARY Post-traumatic MER,VERO MD CNTR WS TRN 04:00 PM stress disorder, [facility] unspecified Jan 09, 2022 SECONDARY Major depressive MER,VERO MD CNTR WSTRN 04:00 PM disorder, [facility] recurrent, moderate Plan of Treatment: Future Appointments (+ 6 months) and Future Tests (+/- 45 days) The Plan of Treatment section includes future care activities for the patient from all [facility]. This section includes future appointments and future orders which are active, pending orscheduled.Future Appointments This section includes appointments that were scheduled to occur 6 months from the date of the Encounter, up to a maximum of 20 appointments. The data comes from all MD treatment facilities. Appointment Date/Time Appointment Type Appointment Facili ty Name Jan 23, 2022 02:30 PM AMBULATORY - PS[facility]IATRY [facility] [place] [facility] Jan 30, 2022 08:00 AM AMBULATORY - MEDICINE [facility] [place] [facility] Jan 30, 2022 11:45 AM AMBULATORY - MEDICINE [facility] [place] [facility] Jan 30, 2022 01:00 PM AMBULATORY - MEDICINE [facility] [place] [facility] Feb 04, 2022 02:15 PM AMBULATORY - NONE [facility] [place] [facility] Feb 06, 2022 04:00 PM AMBULATORY - PSYCHIATRY [facility] [place] [facility] Feb 07, 2022 01:00 PM AMBULATORY - MEDICINE [facility] [place] [facility] Feb 10, 2022 01:15 PM AMBULATORY - MEDICINE [facility] [place] [facility] Feb 10, 2022 01:45 PM AMBULATORY - MEDICINE [facility] [place] [facility] Feb 12, 2022 09:00 AM AMBULATORY - PSYCHIATRY [facility] [place] [facility] Feb 14, 2022 12:00 PM AMBULATORY - PSYCHIATRY [facility] [place] [facility] Feb 25, 2022 01:00 PM AMBULATORY - PSYCHIATRY [facility] [place] [facility] Feb 27, 2022 02:00 PM AMBULATORY - PSYCHIATRY [facility] [place] [facility] Mar 17, 2022 03:00 PM AMBULATORY - PSYCHIATRY [facility] [place] [facility] Mar 28, 2022 09:00 AM AMBULATORY - PSYCHIATRY [facility] [place] [facility] Apr 17, 2022 01:00 PM AMBULATORY - NONE [facility] [place] [facility] Apr 25, 2022 09:00 AM [facility] May 09, 2022 09:00 AM [facility] May 23, 2022 09:00 AM [facility] Lab Results: +/- 30 days of the encounter This section includes the Chemistry and Hematology Lab Results on record with MD for the patient. Radiology Reports and Pathology Reports are provided separately, in subsequent sections.Lab Results This section contains the Chemistry/Hematology Results that were resulted 30 days before or 30 daysafter the date of the Encounter. Date/Time Source Result Type Result - Unit Interpretation Reference Range Comment Feb 07, 2022 [facility] BRUCELLA ANTIBODY, Specimen Typ e: SERUM 01:43 PM [facility] AGGLUTINATION Comment: REFERE NCE RANGE: <1:80 The [...] performance characteri stics have been determined by [facility]. It has not been cleared or approved by FDA. This assay has been validated pursuant to the CLIA regulations and is used for clinical purposes. Test perfor med by [facility][1] [address] [place] [address] Trailer Driver: Alejandrina Quick MD,PHD,[place] Test performed at [facility], [place], [place]. Ordering Provid er: DIMITRI SCRUGGS Report Released Date/Time: Feb 07, 2022 01:27 PM Reporting Lab: [facility] [address] [facility] [address] Performing Lab: [facility] [address] [facility], [address] [facility] [address] BRUCELLA ANTIBODY, AGGLUTINATION <1:80 Feb 07, 2022 [facility] BABESIA MICROTI Specimen Type: SERUM 01:43 PM [facility] ANTIBODIES (IgG, Comment: REFER ENCE RANGE: <1:64 [...] analytical performance characteristics have been determined by [employer], [place]. It has not been cleared or approved by the U.S. Food and Drug A dministration. T his assay has been validated pursuant to the CLIA regulations and is used for clinical purposes. Test Performed by [facility], [facility], [address] [place], [place] Ronald Abdul M.D., Ph.D., Director of Laboratories , CLIA [id number] TEST PERFORMED AT: , Ordering Provid er: DIMITRI SCRUGGS Report Released Date/Time: Feb 07, 2022 01:29 PM Reporting Lab: [facility] [address] [facility] [address] Performing Lab: [facility] [address] [facility], [address] [facility] [address] Babesia microti IgG <1:64 SEE BELOW Babesia microti IgM <1:20 SEE BELOW BABESIA MICROTI AB INTER SEE NOTE Feb 07, 2022 [facility] ANAPLASMA AND Specimen Type: SERUM 01:43 PM [facility] EHRLICHIA AB PANEL Comment: REF ERENCE [...] performance c haracteristics have been determined by [employer] [place], [place]. It has not been cleared or [...] analytical performance characteristics have been determined by [facility] [place], [place]. It has not been cleared or approved by the U.S. Food and Drug Administration. This assay has been validated pursuant to the CLIA regulations and is used for clinical purposes. Test Performed by [facility], [employer] [facility], [address] [place] [address] Ronald Abdul M.D., Ph.D., Director of Laboratories , CLIA [id number] TEST PERFORMED AT: , Ordering Provid er: DIMITRI SCRUGGS Report Released Date/Time: Feb 07, 2022 01:33 PM Reporting Lab: [facility] [address] [facility] [address] Performing Lab: [facility] [address] [facility] [address], [address] [facility] [address] E. chaffeensis Ab IgG <1:64 SEE KIKE Saavedra E. chaffeensis Ab IgM <1:20 SEE BELO W A.phagocytophilum Ab IgG <1:64 SEE B ELOW A.phagocytophilum Ab IgM <1:20 SEE B ELOW EHRLICHIA CHAFFEENSIS AB INTER SEE NOTE A. phagocytophilum inter SEE NOTE Feb 07, 2022 [facility] BABESIA MICROTI, Specimen Type: BLOOD 01:43 PM [facility] DNA PCR(WHV) Comment: The an alytical performance characteristics of this test have been determined by [facility]. It has not been cleared by the FDA. Ordering Provid er: DIMITRI SCRUGGS Report Released Date/Time: Feb 07, 2022 01:29 PM Reporting Lab: [facility] [address] [facility] [address] Performing Lab: [facility] [address] [facility] [address] BABESIA MICROTI, DNA PCR([facility]) Not Detected Not Detected Feb 07, 2022 [facility] RICKETTSIA ANTIBODY Specimen Ty pe: SERUM 01:43 PM [facility] PANEL (Q) Comment: Test P erformed by [facility], [employer] [facility], [address] [place] [address] Ronald Abdul M.D., Ph.D., Director of Laboratories , [place] [id number] TEST PERFORMED AT: , Ordering Provid er: DIMITRI SCRUGGS Report Released Date/Time: Feb 07, 2022 01:33 PM Reporting Lab: [facility] [address] [facility] [address] Performing Lab: [facility] [address], [address] [facility] [address] RMSF IgG Not Detected Not Detected RMSF IgM Not Detected Not Detected R. typhi IgM Not Detected Not Detected Jan [facility] LYME Specimen Type: SERUM WSN SEROLOGY Comment: The re sults are supportive evidence for the presence of antibodies and exposure to Borrelia burgdorferi. The LYME SEROLOGY PANEL was performed using the FDA-approved Demetrius YINA Borrelia burdor 2021 [facility] PANEL feri modified tw o-tier test system. This modified methodology uses a second EIA in place of a western immunoblot assay, which the FDA has determined is substantially equivalent to or better than stand 01:43 [facility] damaris two-tier aren ting using western blot. Supplemental testing with a second EIA meets CDC guidelines for Lyme disease testing. Performance characteristics of the panel were validated at the [facility] lar Diagnostics Laboratory. Results are considered positive [...] and local health departments, if applicable. The [place] State Form URL is: http://www.[place].gov/dph/dru/dph/infectious_diseases/pdf_forms_/yk07_jjby.pdf Ordering Provid er: DIMITRI SCRUGGS Report Released Date/Time: Feb 07, 2022 07:49 AM Reporting Lab: [facility] [employer] [facility]yl[facility] Networks[facility] [address] [facility] [address] Performing Lab: MD [facility]Care HoldingsR DigePrintTRN Aylus NetworksUSETS [facility] [address] [facility] [address] TIER 1 LYME SCREENING EIA Presumptive Positive Negative LYME AB FINAL INTERPRETATION POSITIVE HH N egative TIER 2 LYME EIA,IgG Negative Negative TIER 2 LYME EIA,IgM POSITIVE HH Negative Feb 07, 2022 01:43 PM MD [facility] [place] FOLATE Specimen Type: SERUM [facility] No comment enter ed. Ordering Provid er: DIMITRI SCRUGGS Report Released Date/Time: Feb 07, 2022 07:49 AM Reporting Lab: [facility] [address] [facility] [address] Performing Lab: [facility] [address] [facility] [address] FOLATE 12.99 >5.2 Feb 07, 2022 [facility] C REACTIVE PROTEIN Specimen Typ e: SERUM 01:43 PM [facility] (CRP) Comment: Refere nce range changed [...] Feb 07, 2022 01:18 PM Reporting Lab: [facility] [address] [facility] [address] Performing Lab: [facility] [address] [facility] [address] C REACTIVE PROTEIN (CRPH) 2.32 See eval. Feb 07, 2022 [facility] MALARIA/BABESIA EXAM Specimen T ype: BLOOD 01:43 PM [facility] Comment: Due to the cyclical shed rates of these parasites, one negative specimen does not rule out the possibility of a parasitic infection. Obtain specimens at 6-hour intervals for 36 hours for a com prehensive exami nation. Test Performed by Betty Tracey, [employer] [facility], [address] [place] [address] Ronald Abdul M.D., Ph.D., Director of Laboratories , CLIA [id number] TEST PERFORMED AT: , Ordering Provid er: DIMITRI SCRUGGS Report Released Date/Time: Feb 07, 2022 01:29 PM Reporting Lab: [facility] [place] [facility] [address] [facility] [address] Performing Lab: [facility] [facility] [address], [address] [place] [address] MALARIA/BABESIA EXAM Negative Negative Feb 07, 2022 [facility] CORA SCREEN/TITER Specimen Type: SERUM 01:43 PM [place] [facility] No comment enter ed. Ordering Provid er: DIMITRI SCRUGGS Report Released Date/Time: Feb 07, 2022 01:29 PM Reporting Lab: [facility] [place] [facility] [address] [facility] [address] Performing Lab: [facility] [place] [facility] [address] [facility] [address] CORA SCREEN NEG NEG <1:40 Feb 07, 2022 01:43 [facility] VITAMIN B12 Specimen Typ e: SERUM PM [place] [facility] No comment enter ed. Ordering Provid er: DIMITRI SCRUGGS Report Released Date/Time: Feb 07, 2022 07:49 AM Reporting Lab: [facility] [place] [facility] [address] [facility] [address] Performing Lab: [facility] [place] [facility] [address] [facility] [address] VITAMIN B12 593 200-900 Feb 07, 2022 [facility] SED RATE, AUTOMATED Specimen Ty pe: BLOOD 01:43 PM [place] [facility] No comment enter ed. Ordering Provid er: DIMITRI SCRUGGS Report Released Date/Time: Feb 07, 2022 01:18 PM Reporting Lab: [facility] [facility] [address] [facility] [address] Performing Lab: [facility] [facility] [address] [facility] [address] SED RATE, AUTOMATED 9 0-15 Feb 07, 2022 [facility] URINALYSIS CLEAN Specimen Type: URINE 01:43 PM [place] [facility] CATCH No comment enter ed. Ordering Provid er: DIMITRI SCRUGGS Report Released Date/Time: Feb 07, 2022 07:50 AM Reporting Lab: [facility] [address] [facility] [address] Performing Lab: [facility] [address] [facility] [address] UA COLOR Yellow Yellow UA APPEARANCE Clear Clear UA GLUCOSE Negative Negative UA KETONES Negative Neg UA BLOOD Negative Neg UA PROTEIN Negative Neg UA NITRITE Negative Neg UA BILIRUBIN Negative Neg UA SPECIFIC GRAVITY 1.017 1.016-1.02 2 UA pH 6.0 5.0-9.0 UA UROBILINOGEN <2.0 <2.0 UA LEUKOCYTE ESTERASE Negative Neg Feb 07, 2022 [facility] CBC AND DIFF Specimen Type: BLOOD 01:43 PM [facility] (AUTO) No comment enter ed. Ordering Provid er: DIMITRI SCRUGGS Report Released Date/Time: Feb 07, 2022 07:49 AM Reporting Lab: [facility] [address] [facility] [address] Performing Lab: [facility] [address] [facility] [address] WBC 6.22 4.50-11.00 RBC 5.24 4.23-5.66 HGB 15.7 12.8-17 HCT 44.8 39.2-50.4 MCV 85.5 82-99 MCHC 35.0 30.8-35.1 PLT 390 H 140-360 RDW-CV 11.4 L 12.0-16.0 [place], Abs 0.46 0.30-1.10 MCH 30.0 26.2-32.6 Neut % 60.2 Lymph % 30.1 [place] % 7.4 Eos % 1.1 Baso % 0.6 Neut, Abs 3.74 2.20-7.60 Lymph, Abs 1.87 1.00-3.20 Eos, Abs 0.07 0.03-0.44 Baso, Abs 0.04 0.01-0.13 Immature Gran % 0.6 Immature Gran, Abs 0.04 0.00-0.06 Jan 30, 2022 11:25 [facility] THYROID TOTAL T4 Specimen Ty pe: SERUM AM [place] [facility] No comment enter ed. Ordering Provid er: YINA HAGAN Report Released Date/Time: Jan 30, 2022 10:32 AM Reporting Lab: [facility] [place] [facility] [address] [facility] [address] Performing Lab: [facility] [place] [facility] [address] [facility] [address] THYROID TOTAL T4 8.86 4.5-12.0 Jan 30, 2022 [facility] TESTOSTERONE, TOTAL Specimen Ty pe: SERUM 11:25 AM [place] [facility] No comment enter ed. Ordering Provid er: YINA HAGAN Report Released Date/Time: Jan 30, 2022 10:32 AM Reporting Lab: [facility] [place] [facility] [address] [facility] [address] Performing Lab: [facility] [address] [facility] [address] TESTOSTERONE, TOTAL 525.91 220.00-892 .00 Jan 30, 2022 [facility] HEMOGLOBIN A1C Specimen Type: BLOOD 11:25 AM [facility] PANEL Comment: Values obtained from [...] Jan 30, 2022 10:32 AM Reporting Lab: [facility] [place] [facility] [address] [facility] [address] Performing Lab: [facility] [address] [facility] [address] HEMOGLOBIN A1C 4.6 4.0-5.6 Jan 30, 2022 11:25 [facility] LIVER FUNCTION Specimen Typ e: SERUM AM [place] [facility] No comment enter ed. Ordering Provid er: YINA HAGAN Report Released Date/Time: Jan 30, 2022 10:32 AM Reporting Lab: [facility] [facility] [address] [facility] [address] Performing Lab: [facility] [place] [facility] [address] [facility] [address] PROTEIN,TOTAL 7.2 6.0-8.3 ALBUMIN 4.0 3.5-5.0 ALKALINE PHOSPHATASE 57 40-150 AST 37 H 5-34 ALT 36 <6-55 BILIRUBIN, TOTAL 0.9 0.2-1.2 Jan 30, 2022 11:25 [facility] CBC AND DIFF Specimen Typ e: BLOOD AM [facility] ([facility] No comment enter ed. Ordering Provid er: YINA HAGAN Report Released Date/Time: Jan 30, 2022 10:32 AM Reporting Lab: [facility] [place] [facility] [address] [facility] [address] Performing Lab: [facility] [place] [facility] [address] [facility] [address] WBC 2.65 L 4.50-11.00 RBC 5.29 4.23-5.66 [...] Jan 30, 2022 10:32 AM Reporting Lab: [facility] [place] [facility] [address] [facility] [address] Performing Lab: [facility] [place] [facility] [address] [facility] [address] CHOLESTEROL 167 <7-199 TRIGLYCERIDE 112 0-150 LDL calculated 108 0-129 CHOL/HDL 4.5 HDL CHOLESTEROL 37 L 40-60 Jan 30, 2022 11:25 AM [facility] [place] TSH Specimen Type: SERUM [facility] No comment enter ed. Ordering Provid er: YINA HAGAN Report Released Date/Time: Jan 30, 2022 10:32 AM Reporting Lab: [facility] [place] [facility] [address] [facility] [address] Performing Lab: [facility] [place] [facility] [address] [facility] [address] TSH 0.82 0.35-5.00 Jan 30, 2022 11:25 [facility] [place] VITAMIN B12 S pecimen Type: SERUM AM [facility] No comment enter ed. Ordering Provid er: YINA HAGAN Report Released Date/Time: Jan 30, 2022 10:32 AM Reporting Lab: [facility] [place] [facility] [address] [facility] [address] Performing Lab: [facility] [place] [facility] [address] [facility] [address] VITAMIN B12 354 200-900 Jan 30, 2022 11:25 [facility] VITAMIN D (25-[place]) Specimen T ype: SERUM AM [place] [facility] No comment enter ed. Ordering Provid er: YINA HAGAN Report Released Date/Time: Jan 30, 2022 10:32 AM Reporting Lab: [facility] [place] [facility] [address] [facility] [address] Performing Lab: [facility] [place] [facility] [address] [facility] [address] VITAMIN D (25-[place]) 38 20-50 Jan 30, 2022 [facility] BASIC METABOLIC PANEL Specimen Type: SERUM 11:25 AM [place] [facility] (fasting) No comment enter ed. Ordering Provid er: YINA HAGAN Report Released Date/Time: Jan 30, 2022 10:32 AM Reporting Lab: [facility] [place] [facility] [address] [facility] [address] Performing Lab: [facility] [place] [facility] [address] [facility] [address] UREA NITROGEN 13 7-25 GLUCOSE 102 H 65-100 SODIUM 135 135-145 POTASSIUM 4.4 3.5-5.0 CHLORIDE 100 100-110 CO2 27 20-30 CREATININE, Serum 1.35 0.50-1.40 eGFR(CKD-EPI 2020) 72 >60 Jan 30, 2022 [facility] MICROSCOPIC AUTOMATED, Specimen Type: URINE 11:25 AM [facility] URINE No comment enter ed. Ordering Provid er: YINA HAGAN Report Released Date/Time: Jan 30, 2022 10:32 AM Reporting Lab: [facility] [place] [facility] [address] [facility] [address] Performing Lab: [facility] [place] [facility] [address] [facility] [address] UA WBC 0-5 0-5 UA MUCUS FEW Trace UA RBC 3-5 0-3 Jan 30, 2022 MD [facility] DIFFERENTIAL, MANUAL Specimen T ype: BLOOD 11:25 AM [facility] Comment: Giant platelets present. SENT FOR PATHOLOGY REVIEW Ordering Provid er: YINA HAGAN Report Released Date/Time: Jan 30, 2022 10:32 AM Reporting Lab: [facility] [place] [facility] [address] [facility] [address] Performing Lab: [facility] [place] [facility] [address] [facility] [address] SEGS 47 L 48-78 BANDS 5 0-10 LYMPHS 16 10-55 MONOS 23 H 2-12 VARIANT LYMPHOCYTES 5 0-6 OTHER/CELL 4 Jan 30, 2022 11:25 [facility] [place] URINALYSIS S pecimen Type: URINE AM H[facility] No comment enter ed. Ordering Provid er: YINA HAGAN Report Released Date/Time: Jan 30, 2022 10:32 AM Reporting Lab: [facility] [place] [facility] [address] [facility] [address] Performing Lab: [facility] [place] [facility] [address] [facility] [address] UA COLOR Yellow Yellow UA APPEARANCE Clear Clear UA GLUCOSE Negative Negative UA KETONES Negative Neg UA BLOOD Moderate Neg UA PROTEIN 30 Neg UA NITRITE Negative Neg UA BILIRUBIN Negative Neg UA SPECIFIC GRAVITY 1.027 H 1.016-1.02 2 UA pH 5.0 5.0-9.0 UA UROBILINOGEN <2.0 <2.0 UA LEUKOCYTE ESTERASE Negative Neg Jan [facility] LYME Specimen Type: SERUM 14, WSTRN SEROLOGY Comment: The LY ME SEROLOGY PANEL was performed using the FDA-approved Demetrius YINA Borrelia burdorferi modified two-tier test system. This modified methodology uses a second EIA in place of a western imm 2021 [place] PANEL unoblot assay, w [facility] the FDA has determined is substantially equivalent to or better than standard two-tier testing using western blot. Supplemental testing with a second EIA meets CDC guidelines for 11:25 [facility] Lyme disease aren ting. Performance characteristics of the panel were validated at the [facility] Molecular Diagnostics Laboratory. Results are considered positive [...] The [place] State Form U RL is: http://www.[place].gov/dph/dru/dph/infectious_diseases/pdf_forms_/nw23_dbgv.pdf Ordering Provid er: BENTLEY,YINA Report Released Date/Time: Feb 03, 2022 12:51 PM Reporting Lab: [facility] [address] [facility] [place] [address] Performing Lab: [facility] [address] [facility] [address] TIER 1 LYME SCREENING EIA Negative Nega tive LYME AB FINAL INTERPRETATION Negative N egative Jan 30, 2022 11:25 MD [facility] Specimen Type: BLOOD AM [place] [facility] Comment: SEE HE [id number] Ordering Provid er: YINA HAGAN Report Released Date/Time: Jan 30, 2022 12:51 PM Reporting Lab: [facility] [address] [facility] [address] Performing Lab: [facility] [address] [facility] [address] SMEAR CONSULT ([facility]) comment Social History: Smoking Status (Most current) and Tobacco Use (All prior to encounter date) This section includes the most current, and the historical, smoking and tobacco-related health factors from the MD facility where the Encounter took place.Current Smoking Status This section includes the most current smoking, or tobacco-related health factor, from the MD facility where the Encounter took place. Date/Time Current Smoking Status Comment Facility May 23, 2021 02:30 PM VA-TOBACCO NEVER USED [facility] Encounter Notes: All associated encounter notes This section contains the clinical notes associated to the Encounter. Date/Time Encounter Note(s) Provider Source Jan 09, 2022 04:00 PM MENTAL HEALTH TELEPHONE ENCOUNTER NOTE: ANIVAL CRAR [facility] LOCAL TITLE: TELEPHONE NOTE/[facility] STANDARD TITLE: MENTAL HEALTH TELEPHONE ENCOUNTE R NOTE DATE OF NOTE: JAN 09, 2022@16:00 ENTRY DATE: JAN 09, 2022@16:12:48 AUTHOR: ANIVAL DEL ANGEL EXP COSIGNER: URGENCY: STATUS: COMPLETED Diagnosis: PTSD; MDD Length of phone call: 10 minutes Phone call to at appointment time. Veter an needed to drive home. Discussed not having a sessi on while driving. Agreed to a short phone call as a result. He requested an in person appointment an d said he would leave work early. Affirmed this plan and scheduled one for next week. Inquired about his s/i while driving (per last week's report to edu foley). [place] shared it was a better week and that he didn't recall having thi s s/i. 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 He said there was a PTSD trigger (a loud noise) two nights ago that exace rbated his hyperarousal symptoms. was calm, polite, and forthcoming, and motivated to meet with property underwriter. Confirmed appointment next week. /ivelisse/ ANIVAL DEL ANGEL [facility]IN[facility] MARINE RESOURCE ECONOMIST Signed: 01/09/2022 16:16
--- OUTSIDE RECORDS SUMMARY | 2022-04-18 10:03 | XMS_ITS | Encounter Summary ---
:1990 Author Organization [facility] rs Address [address] [place] [address] Support Name Relationship Address Phone TETE TRAN Unavailable [address] [facility] [phone] [address] [place] [address] THOMAS MONTOYA Unavailable [address] [place] [address] Insurance Providers: All historical and current Section [...] Name to Policy Number [facility] Aug 03, [id number] [phone] ROSA MARIA ChapoKS ASHLEE GIMENEZ 2019 [id number] [facility] DEPT Selected Encounter This section includes the information on record at [facility] for the Encounter. Date/Time Encounter Type Encounter Reason Provider Source Description Jan 07, 2022 07:23 Outpatient EVENT (HISTORICAL) VENKAT DEL ANGEL AM Encounter IHE Encounter Template Text not used by AR Plan of Treatment: Future Appointments (+ 6 months) and Future Tests (+/- 45 days) The Plan of Treatment section includes future care activities for the patient from all [facility] treatmentfacilities. This section includes future appointments and future orders which are active, pending orscheduled.Future Appointments This section includes appointments that were scheduled to occur 6 months from the date of the Encounter, up to a maximum of 20 appointments. The data comes from all [facility] treatment facilities. Appointment Date/Time Appointment Type Appointment Facili ty Name Jan 09, 2022 04:00 PM AMBULATORY - PSYCHIATRY [facility] Jan 23, 2022 02:30 PM [facility] [place] [facility] Jan 30, 2022 08:00 AM AMBULATORY - MEDICINE [facility] [place] [facility] Jan 30, 2022 11:45 AM AMBULATORY - MEDICINE [facility] [place] [facility] Jan 30, 2022 01:00 PM AMBULATORY - MEDICINE [facility] [place] [facility] Feb 04, 2022 02:15 PM AMBULATORY - NONE [facility] [place] [facility] Feb 06, 2022 04:00 PM AMBULATORY [facility] [place] [facility] Feb 07, 2022 01:00 PM AMBULATORY - MEDICINE [facility] [place] [facility] Feb 10, 2022 01:15 PM AMBULATORY - MEDICINE [facility] [place] [facility] Feb 10, 2022 01:45 PM AMBULATORY - MEDICINE [facility] [place] [facility] Feb 12, 2022 09:00 AM AMBULATORY - PS[facility] [place] [facility] Feb 14, 2022 12:00 PM AMBULATORY - PS[facility]IATRY [facility] [place] [facility] Feb 25, 2022 01:00 PM AMBULATORY - PS[facility]IATRY [facility] [place] [facility] Feb 27, 2022 02:00 PM AMBULATORY - PS[facility]IATRY [facility] [place] [facility] Mar 17, 2022 03:00 PM AMBULATORY - PS[facility]IATRY [facility] [place] [facility] Mar 28, 2022 09:00 AM AMBULATORY - PS[facility]IATRY [facility] [place] [facility] Apr 17, 2022 01:00 PM AMBULATORY - NONE [facility] [place] [facility] Apr 25, 2022 09:00 AM AMBULATORY - PS[facility]CHIATRY [facility] [place] [facility] May 09, 2022 09:00 AM AMBULATORY - PS[facility]IATRY [facility] [place] [facility] May 23, 2022 09:00 AM AMBULATORY - PS[facility]CHIATRY [facility] [place] [facility] Lab Results: +/- 30 days [...] Result - Unit Interpretation Reference Range Comment Jan 30, 2022 11:25 [facility] THYROID TOTAL T4 Specimen Ty pe: SERUM AM [place] [facility] No comment enter ed. Ordering Provid er: YINA HAGAN Report Released Date/Time: Jan 30, 2022 10:32 AM Reporting Lab: [facility] [place] [facility] [address] [facility] [address] Performing Lab: [facility] [place] [facility] [address] [facility] [address] THYROID TOTAL T4 8.86 4.5-12.0 Jan 30, 2022 [facility] TESTOSTERONE, TOTAL Specimen Ty pe: SERUM 11:25 AM [place] [facility] No comment enter ed. Ordering Provid er: YINA HAGAN Report Released Date/Time: Jan 30, 2022 10:32 AM Reporting Lab: [facility] [place] [facility] [address] [facility] [address] Performing Lab: [facility] [place] [facility] [address] [facility] [address] TESTOSTERONE, TOTAL 525.91 220.00-892 .00 Jan 30, 2022 11:25 [facility] LIVER FUNCTION Specimen Typ e: SERUM AM [place] [facility] No comment enter ed. Ordering Provid er: YINA HAGAN Report Released Date/Time: Jan 30, 2022 10:32 AM Reporting Lab: [facility] [place] [facility] [address] [facility] [address] Performing Lab: [facility] [place] [facility] [address] [facility] [address] PROTEIN,TOTAL 7.2 6.0-8.3 ALBUMIN 4.0 3.5-5.0 ALKALINE PHOSPHATASE 57 40-150 AST 37 H 5-34 ALT 36 <6-55 BILIRUBIN, TOTAL 0.9 0.2-1.2 Jan 30, 2022 [facility] HEMOGLOBIN A1C Specimen Type: BLOOD 11:25 AM [place] [facility] PANEL Comment: Values obtained from [...] Jan 30, 2022 10:32 AM Reporting Lab: [facility] [place] [facility] [address] [facility] [address] Performing Lab: [facility] [place] [facility] [address] [facility] [address] HEMOGLOBIN A1C 4.6 4.0-5.6 Jan 30, 2022 11:25 [facility] CBC AND DIFF Specimen Typ e: BLOOD AM [place] [facility] (AUTO) No comment enter ed. Ordering Provid er: YINA HAGAN Report Released Date/Time: Jan 30, 2022 10:32 AM Reporting Lab: [facility] [place] [facility] [address] [facility] [address] Performing Lab: [facility] [place] [facility] [address] [facility] [address] WBC 2.65 L 4.50-11.00 RBC 5.29 4.23-5.66 HGB 15.7 12.8-17 HCT 46.2 39.2-50.4 MCV 87.3 82-99 MCHC 34.0 30.8-35.1 PLT 152 140-360 RDW-CV 11.5 L 12.0-16.0 MCH 29.7 26.2-32.6 Jan 30, 2022 11:25 [facility] LIPID PANEL FASTING Specimen Type: SERUM AM [place] [facility] No comment enter ed. Ordering Provid er: YINA HAGAN Report Released Date/Time: Jan 30, 2022 10:32 AM Reporting Lab: [facility] [place] [facility] [address] [facility] [address] Performing Lab: [facility] [place] [facility] [address] [facility] [address] CHOLESTEROL 167 <7-199 TRIGLYCERIDE 112 0-150 LDL calculated 108 0-129 CHOL/HDL 4.5 HDL CHOLESTEROL 37 L 40-60 Jan 30, 2022 11:25 [facility] [place] VITAMIN B12 S pecimen Type: SERUM AM [facility] No comment enter ed. Ordering Provid er: YINA HAGAN Report Released Date/Time: Jan 30, 2022 10:32 AM Reporting Lab: [facility] [place] [facility] [address] [facility] [address] Performing Lab: [facility] [place] [facility] [address] [facility] [address] VITAMIN B12 354 200-900 Jan 30, 2022 11:25 [facility] VITAMIN D (25-[place]) Specimen T ype: SERUM AM [place] [facility] No comment enter ed. Ordering Provid er: YINA HAGAN Report Released Date/Time: Jan 30, 2022 10:32 AM Reporting Lab: [facility] [place] [facility] [address] [facility] [address] Performing Lab: [facility] [place] [facility] [address] [facility] [address] VITAMIN D (25-OH) 38 20-50 Jan 30, 2022 11:25 AM [facility] [place] TSH Specimen Type: SERUM [facility] No comment enter ed. Ordering Provid er: YINA HAGAN Report Released Date/Time: Jan 30, 2022 10:32 AM Reporting Lab: [facility] [place] [facility] [address] [facility] [address] Performing Lab: [facility] [place] [facility] [address] [facility] [address] TSH 0.82 0.35-5.00 Jan 30, 2022 [facility] BASIC METABOLIC PANEL Specimen Type: SERUM 11:25 AM [place] [facility] (fasting) No comment enter ed. Ordering Provid er: YINA HGAAN Report Released Date/Time: Jan 30, 2022 10:32 AM Reporting Lab: [facility] [place] [facility] [address] [facility] [address] Performing Lab: [facility] [place] [facility] [address] [facility] [address] UREA NITROGEN 13 7-25 GLUCOSE 102 H 65-100 SODIUM 135 135-145 POTASSIUM 4.4 3.5-5.0 CHLORIDE 100 100-110 CO2 27 20-30 CREATININE, Serum 1.35 0.50-1.40 eGFR(CKD-EPI 2020) 72 >60 Jan 30, 2022 [facility] MICROSCOPIC AUTOMATED, Specimen Type: URINE 11:25 [facility] No comment enter ed. Ordering Provid er: YINA HAGAN Report Released Date/Time: Jan 30, 2022 10:32 AM Reporting Lab: [facility] [place] [facility] [address] [facility] [address] Performing Lab: [facility] [place] [address] [address] UA WBC 0-5 0-5 UA MUCUS FEW Trace UA RBC 3-5 0-3 Jan 30, 2022 [facility] DIFFERENTIAL, MANUAL Specimen T ype: BLOOD 11:25 AM [facility] Comment: Giant platelets present. SENT FOR PATHOLOGY REVIEW Ordering Provid er: YINA HAAGN Report Released Date/Time: Jan 30, 2022 10:32 AM Reporting Lab: [facility] [place] [facility] [address] [facility] [address] Performing Lab: [facility] [place] [facility] [address] [facility] [address] SEGS 47 L 48-78 BANDS 5 0-10 LYMPHS 16 10-55 MONOS 23 H 2-12 VARIANT LYMPHOCYTES 5 0-6 OTHER/CELL 4 Jan 30, 2022 11:25 [facility] [place] URINALYSIS S pecimen Type: URINE AM HCS No comment enter ed. Ordering Provid er: YINA HAGAN Report Released Date/Time: Jan 30, 2022 10:32 AM Reporting Lab: [facility] [place] [facility] [address] [facility] [address] Performing Lab: [facility] [place] [facility] [address] [facility] [address] UA COLOR Yellow Yellow UA APPEARANCE Clear Clear UA GLUCOSE Negative Negative UA KETONES Negative Neg UA BLOOD Moderate Neg UA PROTEIN 30 Neg UA NITRITE Negative Neg UA BILIRUBIN Negative Neg UA SPECIFIC GRAVITY 1.027 H 1.016-1.02 2 UA pH 5.0 5.0-9.0 UA UROBILINOGEN <2.0 <2.0 UA LEUKOCYTE ESTERASE Negative Neg Jan [facility] LYME Specimen Type: SERUM 14, [facility] [...] Supplemental testing with a second EIA meets [facility] guidelines for 11:25 [facility] Lyme disease aren ting. Performance characteristics of the panel were validated at the [facility] Molecular Diagnostics [facility]. Results are considered [...] and local health departments, if applicable. The [place] State Form U RL is: http://www.[place].gov/dph/dru/dph/infectious_diseases/pdf_forms_/la08_cfva.pdf Ordering Provid er: BENTLEYYINA Report Released Date/Time: Feb 03, 2022 12:51 PM Reporting Lab: [facility] [place] [address] [address] Performing Lab: [facility] [place] [facility] [address] [facility] [address] TIER 1 LYME SCREENING EIA Negative Nega tive LYME AB FINAL INTERPRETATION Negative N egative Jan 30, 2022 11:25 [facility] SMEAR CONSULT ([facility]) Specimen Type: [facility]LOOD [facility] Comment: SEE HE [id number] 27 Ordering Provid er: BENTLEY,YINA Report Released Date/Time: Jan 30, 2022 12:51 PM Reporting Lab: [facility]N [facility] [address] [facility] [address] Performing Lab: [facility] [address] [facility] [address] SMEAR CONSULT ([facility]) comment Social History: Smoking Status (Most current) [...] 23, 2021 02:30 PM VA-TOBACCO NEVER USED [facility] Encounter Notes: All associated encounter notes This section contains the clinical notes associated to the Encounter. Date/Time Encounter Note(s) Provider Source Jan 07, 2022 07:23 AM MENTAL HEALTH SECURE MESSAGING: CRYSTAL DEL ANGEL [facility] WSN LOCAL TITLE: MENTAL HEALTH SECURE MESSAGING [facility] STANDARD TITLE: MENTAL HEALTH SECURE MESSAGING DATE OF NOTE: JAN 07, 2022@07:23 ENTRY DATE: JAN 07, 2022@08:23:07 AUTHOR: ANIVAL DEL ANGEL EXP COSIGNER: URGENCY: STATUS: COMPLETED ------Original Message Sent: 01/03/2022 08:42 AM ET From: ANIVAL DEL ANGEL To: GEORGE MONTOYA Subject: General:Resources we talked about Good morning George. I am sending you the links to the resources I mentioned to you yesterday. Let me know what you think of these and if they might be helpful: 1. Moving forward. This is a brief self-eugenio ded program to improve problem-solving skills: https://www.veterantraining.[place].gov/apps/movingfo marisoldamaris 2. DBT Skills Videos https://www.Satarii.com/channel/BP3bNDRWRoDsFj8T ZbG_BAQQ https://www.ChanRx Corpube.com/watch? v=ZVHtjDgc_XU&list=PLVlLbxLe1Eo7dvP2qAMB0Zf_nLSm jBoeh 3. PTSD and Mindfulness Apps: https://www.Cyan[employer].gov/apps/ptsdcoachonline/def joanna.htm https://[employer]/gisell/mindfulness-assistant softball coach ------Original Message Sent: 01/06/2022 04:21 PM ET From: GEORGE MONTOYA To: RAQUEL_RADHA,Serenity_MER,C_BARRIE,O_KEV, S_NHM% Subject: General:Resources we talked about Good Afternoon Anival, I just want to bring it to your attention that there wasn't any layoffs last Thursday. so that being said I wont be able to parker e in to our scheduled appointment on the @ 09 00. when you can may you call me so we may set up a future appointment. Thank you. ------Original Message Sent: 01/07/2022 08:21 AM ET From: ANIVAL DEL ANGEL To: GEORGE MONTOYA Subject: General:Resources we talked about Jose Caraballo. Thanks for letting me know. I'll give you a ring to set up another time this week. In the meantime were you able to connect to the links I sent you? Just wanting to make sure they worked for y ou. Anival Woods /ivelisse/ ANIVAL DEL ANGEL [facility] CLINICAL SLUBBER FRAME CHANGER Signed: 01/07/2022 08:23
--- OUTSIDE RECORDS SUMMARY | 2022-04-18 10:03 | XMS_ITS | Encounter Summary ---
:1990 Author Organization Department [facility] rs Address [address] [place] [address] Support Name Relationship Address Phone TETE TRAN Unavailable [address] [place] [address] THOMAS MONTOYA Unavailable [address] [facility] [place] [address] Insurance Providers: All historical and current Section [...] Name to Policy Number [facility] Aug 03, [id number] ROSA MARIA ChapoMD PATIENT BEE GIMENEZ [id number] [facility] DE[facility] Selected Encounter This section includes the information on record at [facility] for the Encounter. Date/Time Encounter Type Encounter Reason Provider Source Description Dec 20, 2021 PSYTX W PT 30 TELEPHONE ICD-10-CM F43.10 LUCINDA DEL ANGEL T 04:00 PM MINUTES Post-traumatic IE stress disorder, unspecified with Provider Comments: Posttraumatic stress disorder ([facility] [id number]) IHE Encounter Template Text not used by [facility] Assessments - Encounter Diagnoses This section includes the primary and secondary diagnoses documented for the Encounter. Date/Time Primary/Secondary Diagnosis Name Provider Source Diagnosis Dec 20, 2021 PRIMARY Post-traumatic MERDAI [facility] TRN 04:00 PM stress disorder, [facility] unspecified Dec 20, 2021 SECONDARY Major depressive M[facility] 04:00 PM disorder, [facility] recurrent, moderate Plan of Treatment: Future Appointments (+ 6 months) and Future Tests (+/- 45 days) The Plan of Treatment section includes future care activities for the patient [facility] This section includes future appointments and future orders which are active, pending orscheduled.Future Appointments This section includes appointments that were scheduled to occur 6 months from the date of the Encounter, up to a maximum of 20 appointments. The data comes from all [place] treatment facilities. Appointment Date/Time Appointment Type Appointment Facili ty Name Dec 26, 2021 04:00 PM AMBULATORY - PSYCHIATRY [facility] [place] [facility] Jan 09, 2022 04:00 PM AMBULATORY - PS[facility]CHIATRY [facility] [place] [facility] Jan 23, 2022 02:30 PM AMBULATORY - PS[facility]CHIATRY [facility] [place] [facility] Jan 30, 2022 08:00 AM AMBULATORY - MEDICINE [facility] [place] [facility] Jan 30, 2022 11:45 AM AMBULATORY - MEDICINE [facility] [place] [facility] Jan 30, 2022 01:00 PM AMBULATORY - MEDICINE [facility] [place] [facility] Feb 04, 2022 02:15 PM AMBULATORY - NONE [facility] [place] [facility] Feb 06, 2022 04:00 PM AMBULATORY - PS[facility]CHIATRY [facility] [place] [facility] Feb 07, 2022 01:00 PM AMBULATORY - MEDICINE [facility] [place] [facility] Feb 10, 2022 01:15 PM AMBULATORY - MEDICINE [facility] [place] [facility] Feb 10, 2022 01:45 PM AMBULATORY - MEDICINE [facility] [place] [facility] Feb 12, 2022 09:00 AM AMBULATORY - PSYCHIATRY [facility] [place] [facility] Feb 14, 2022 12:00 PM AMBULATORY - PSYCHIATRY [facility] [place] [facility] Feb 25, 2022 01:00 PM AMBULATORY - PS[facility]CHIATRY [facility] [place] [facility] Feb 27, 2022 02:00 PM AMBULATORY - PS[facility]CHIATRY [facility] [place] [facility] Mar 17, 2022 03:00 PM AMBULATORY - PSYCHIATRY [facility] [place] [facility] Mar 28, 2022 09:00 AM AMBULATORY - PSYCHIATRY [facility] [place] [facility] Apr 17, 2022 01:00 PM AMBULATORY - NONE [facility] [place] [facility] Apr 25, 2022 09:00 AM AMBULATORY - PSYCHIATRY [facility] [place] [facility] May 09, 2022 09:00 AM [facility] Social History: Smoking Status (Most current) [...] 23, 2021 02:30 PM VA-TOBACCO NEVER USED [facility] Encounter Notes: All associated encounter notes This section contains the clinical notes associated to the Encounter. Date/Time Encounter Note(s) Provider Source Dec 20, 2021 04:00 MENTAL HEALTH TELEPHONE ENCOUNTER NOTE: [facility] LOCAL TITLE: TELEPHONE NOTE/MENTAL HEALTH [facility] STANDARD TITLE: MENTAL HEALTH TELEPHONE ENCOUNTE R NOTE DATE OF NOTE: DEC 20, 2021@16:00 ENTRY DATE: DEC 20, 2021@16:00:51 AUTHOR: ANIVAL DEL ANGEL EXP COSIGNER: URGENCY: STATUS: COMPLETED VISIT DURATION: 25 minutes ( phone call due to being unable to access [facility] where he works and due to his work hours) DIAGNOSES: PTSD; [employer] STATEMENT OF GOALS/CONCERNS: reported he was doing all right . He shared feeling some stress after speaking with his psychiatrist and concerns rega rding (what he heard) her mentioning possibility of being section' d or required to go inpatient. He said he didn't feel he was at the place where he need ed to, and denied any active plan or intent. He talked ab out how he knew the time he did admit himself it was helpful, but it was also sonya d as it felt like he was being incarcerated. He said he would go voluntarily if he felt he was at soumya t place where he needed to be admitted. He already spoke with his fore man that he may need a few days in the event he does seek admission. He said he reached out to [facility] and he was more excited about their [employer], which includes physical activity and evening groups. He felt very supported by em and their words of advice regarding managing PTSD. He felt that the [employer] [facility] could be a way to reset . He knows he will be completing this current work project soon and will have some time off and wants to work wit h chart writer around some of these options. He shared that I have my [s afety] plan which I have literally posted my bed at night. I'm speaking with you - things he is fin ding helpful. He also said he wanted to use the crisis line as an opti on if needed. He shared he knows he is not alone as he is with his who is also a s upport. SESSION FOCUS: coping; support; suicide preventi on INTERVENTIONS: Psychotherapeutic Interventions: Assessment of sxs, s/i, well-being, and needs. Treatment planning and safety planning. Explored options. Elicited what would be an laron cation he would need to seek admission: when I literally hear audio hallucinations and feel an outer body experience...this static aries ctricity...when the inner me is screaming (which wa what happened last time he sought admission). Affirmed his staying open and honest with how he is doing and what his needs are, and for reaching out to [facility]. Wr iter let him know she was consulting with the national suicide prevention consultation team (his psychiatrist had mentioned something about this to him and he was confused/concerned) and explained the purpose (t o get guidance on additional resources/suggestions for him). Glass Calibrator let him k now she would pass along what she learned when she talks with him next week. Paul abdi was reassured by this. ASSESSMENT: BRIEF ASSESSMENT OF MENTAL STATUS: 1. [...] was normal: Anxious Other Observations: RISK ASSESSMENT: Denies any current plan/int ent or preparatory behaviors for suicide. Continues to keep gun and ammo separat ed in different buildings. Remains well engaged and willing to hear/consider suggestions. PLAN FOR FOLLOW-UP: Phone call next week /ivelisse/ ANIVAL DEL ANGEL RECEIVING WORKER CLINICAL TEN PIN [employer] MANAGER Signed: 12/20/2021 16:41
--- OUTSIDE RECORDS SUMMARY | 2022-04-18 10:03 | XMS_ITS | Encounter Summary ---
:1990 Author Organization Department [facility] rs Address [address] [place] [address] Support Name Relationship Address Phone TETE TRAN Unavailable [address] [facility] [place] [address] THOMAS MONTOYA Unavailable [address] [place] [address] Insurance Providers: All historical and current Section Date Range: From patient's date of to the date document was created.This section includes the names of all active insurance providers for the patient. Insurance Type of Plan Start of End of Group Member Insurance Policy P atient's Provider Coverage Name Policy Policy Number ID Provider's Ojeda's Relationship Coverage Coverage Telephone Name to Policy Number Ojeda [facility] Aug 03, [id number] ROSA MARIA YanethUT PATIENT BEE GIMENEZ [id number] STEPHANIE JOHNSON [facility] E DEPT Selected Encounter This section includes the information on record at [facility] for the Encounter. Date/Time Encounter Type Encounter Reason Provider Source Description Jan 02, 2022 PSYTX W PT 30 TELEPHONE ICD-10-CM F43.10 MERLUCINDA Serenity 04:00 PM MINUTES Post-traumatic IE stress disorder, unspecified with Provider Comments: Posttraumatic stress disorder ([facility] [id number]) IHE Encounter Template Text not used by VA Assessments - Encounter Diagnoses This section includes the primary and secondary diagnoses documented for the Encounter. Date/Time Primary/Secondary Diagnosis Name Provider Source Diagnosis Jan 02, 2022 PRIMARY Post-traumatic MERDAI [facility] WS TRN 04:00 PM stress disorder, [facility] [facility] unspecified Jan 02, 2022 SECONDARY Major depressive MERDAI [facility] WSTRN 04:00 PM disorder, [facility] recurrent, moderate Plan of Treatment: Future Appointments (+ 6 months) and Future Tests (+/- 45 days) The Plan of Treatment section includes future care activities for the patient from all [facility]. This section includes future appointments and future orders which are active, pending orscheduled.Future Appointments This section includes appointments that were scheduled to occur 6 months from the date of the Encounter, up to a maximum of 20 appointments. The data comes from all [place] treatment facilities. Appointment Date/Time Appointment Type Appointment Facili ty Name Jan 09, 2022 04:00 PM AMBULATORY - PSYCHIATRY [facility] [place] [facility] Jan 23, 2022 02:30 PM AMBULATORY - PSYCHIATRY [facility] [place] [facility] Jan 30, 2022 08:00 AM AMBULATORY - MEDICINE [facility] [place] [facility] Jan 30, 2022 11:45 AM AMBULATORY - MEDICINE [facility] [place] [facility] Jan 30, 2022 01:00 PM AMBULATORY - MEDICINE [facility] [place] [facility] Feb 04, 2022 02:15 PM AMBULATORY - NONE [facility] [place] [facility] Feb 06, 2022 04:00 PM AMBULATORY - PSYCHIATRY [facility] [place] [facility] Feb 07, 2022 01:00 PM AMBULATORY - MEDICINE [facility] [place] [facility] Feb 10, 2022 01:15 PM AMBULATORY - MEDICINE [facility] [place] [facility] Feb 10, 2022 01:45 PM AMBULATORY - MEDICINE [facility] [place] [facility] Feb 12, 2022 09:00 AM AMBULATORY - PSYCHIATRY [facility] [place] [facility] Feb 14, 2022 12:00 PM AMBULATORY - PSYCHIATRY [facility] [place] [facility] Feb 25, 2022 01:00 PM AMBULATORY - PSYCHIATRY [facility] [place] [facility] Feb 27, 2022 02:00 PM AMBULATORY - PSYCHIATRY [facility] [place] [facility] Mar 17, 2022 03:00 PM AMBULATORY - PSYCHIATRY [facility] [place] [facility] Mar 28, 2022 09:00 AM AMBULATORY - PSYCHIATRY [facility] [place] [facility] Apr 17, 2022 01:00 PM AMBULATORY - NONE [place] [facility] [place] [facility] Apr 25, 2022 09:00 AM AMBULATORY - PSYCHIATRY [facility] [place] [facility] May 09, 2022 09:00 AM AMBULATORY - PSYCHIATRY [facility] [place] [facility] May 23, 2022 09:00 AM AMBULATORY - PSYCHIATRY [facility] [place] [facility] Lab Results: +/- 30 days of the encounter This section includes the Chemistry and Hematology Lab Results on record with [place] for the patient. Radiology Reports and Pathology Reports are provided separately, in subsequent sections.Lab Results This section contains the Chemistry/Hematology Results that were resulted 30 days before or 30 daysafter the date of the Encounter. Date/Time Source Result Type Result - Unit Interpretation Reference Range Comment Jan 30, 2022 11:25 [facility] THYROID TOTAL T4 Specimen Ty pe: SERUM AM [place] [facility] No comment enter ed. Ordering Provid er: YNIA HAGAN Report Released Date/Time: Jan 30, 2022 10:32 AM Reporting Lab: [facility] [place] [facility] [address] [address] Performing Lab: [facility] [place] [facility] [address] [facility] [address] THYROID TOTAL T4 8.86 4.5-12.0 Jan 30, 2022 [facility] TESTOSTERONE, TOTAL Specimen Ty pe: SERUM 11:25 AM [facility] No comment enter ed. Ordering Provid er: YINA HAGAN Report Released Date/Time: Jan 30, 2022 10:32 AM Reporting Lab: [facility] [place] [facility] [address] [facility] [address] Performing Lab: [facility] [place] [facility] [address] [facility] [address] TESTOSTERONE, TOTAL 525.91 220.00-892 .00 Jan 30, 2022 11:25 [facility] CBC AND DIFF Specimen Typ e: BLOOD [facility] (AUTO) No comment enter ed. Ordering Provid er: YINA HAGAN Report Released Date/Time: Jan 30, 2022 10:32 AM Reporting Lab: [facility] [place] [facility] [address] [facility] [address] Performing Lab: [facility] [address] [facility] [address] WBC 2.65 L 4.50-11.00 RBC 5.29 4.23-5.66 HGB 15.7 12.8-17 HCT 46.2 39.2-50.4 MCV 87.3 82-99 MCHC 34.0 30.8-35.1 PLT 152 140-360 RDW-CV 11.5 L 12.0-16.0 MCH 29.7 26.2-32.6 Jan 30, 2022 [facility] HEMOGLOBIN A1C Specimen Type: BLOOD 11:25 AM [facility] PANEL Comment: Values obtained from A1C measurements can vary. For typical A1C assays, a reported value of 7.0 could actually be between 6.72 and 7.28 if measured by a reference method. A reported value of 9 .0 could actuall y be between 8.73 and 9.27. Ref: http://www.ngsp.org/CAPdata.asp Ordering Provid er: YINA HAGAN Report Released Date/Time: Jan 30, 2022 10:32 AM Reporting Lab: [facility] [address] [facility] [address] Performing Lab: [facility] [address] [facility] [address] HEMOGLOBIN A1C 4.6 4.0-5.6 Jan 30, 2022 11:25 [facility] LIVER FUNCTION Specimen Typ e: SERUM AM [facility] No comment enter ed. Ordering Provid er: YINA HAGAN Report Released Date/Time: Jan 30, 2022 10:32 AM Reporting Lab: [facility] [address] [facility] [address] Performing Lab: [facility] [address] [facility] [address] PROTEIN,TOTAL 7.2 6.0-8.3 ALBUMIN 4.0 3.5-5.0 ALKALINE PHOSPHATASE 57 40-150 AST 37 H 5-34 ALT 36 <6-55 BILIRUBIN, TOTAL 0.9 0.2-1.2 Jan 30, 2022 [facility] BASIC METABOLIC PANEL Specimen Type: SERUM 11:25 AM [facility] (fasting) No comment enter ed. Ordering Provid er: YINA HAGAN Report Released Date/Time: Jan 30, 2022 10:32 AM Reporting Lab: [facility] [place] [facility] [address] [facility] [address] Performing Lab: [facility] [place] [facility] [address] [facility] [address] UREA NITROGEN 13 7-25 GLUCOSE 102 H [...] WSTRN [place] [facility] [address] [facility] [address] Performing Lab: [facility] [place] [facility] [address] [facility] [address] TSH 0.82 0.35-5.00 Jan 30, 2022 11:25 [facility] LIPID PANEL FASTING Specimen Type: SERUM AM [facility] No comment enter ed. Ordering Provid er: YINA HAGAN Report Released Date/Time: Jan 30, 2022 10:32 AM Reporting Lab: [facility] [place] [facility] [address] [facility] [address] Performing Lab: [facility] [place] [facility] [address] [facility] [address] CHOLESTEROL 167 <7-199 TRIGLYCERIDE 112 0-150 LDL calculated 108 0-129 CHOL/HDL 4.5 HDL CHOLESTEROL 37 L 40-60 Jan 30, 2022 11:25 [facility] [place] VITAMIN B12 S pecimen Type: SERUM AM HCS No comment enter ed. Ordering Provid er: YINA HAAGN Report Released Date/Time: Jan 30, 2022 10:32 AM Reporting Lab: [facility] [place] [facility] [address] [facility] [address] Performing Lab: [facility] [place] [facility] [address] [facility] [address] VITAMIN B12 354 200-900 Jan 30, 2022 11:25 [facility] VITAMIN D (25-[place]) Specimen T ype: SERUM AM [facility] No comment enter ed. Ordering Provid er: YINA HAGAN Report Released Date/Time: Jan 30, 2022 10:32 AM Reporting Lab: [facility] [place] [facility] [address] [facility] [address] Performing Lab: [facility] [place] [facility] [address] [facility] [address] VITAMIN D (25-[place]) 38 20-50 Jan 30, 2022 [facility] MICROSCOPIC AUTOMATED, Specimen Type: URINE 11:25 AM [facility] URINE No comment enter ed. Ordering Provid er: YINA HAGAN Report Released Date/Time: Jan 30, 2022 10:32 AM Reporting Lab: [facility] [place] [facility] [address] [facility] [address] Performing Lab: [facility] [place] [facility] [address] [facility] [address] UA WBC 0-5 0-5 UA MUCUS FEW Trace UA RBC 3-5 0-3 Jan 30, 2022 [facility] DIFFERENTIAL, MANUAL Specimen T ype: BLOOD 11:25 AM [facility] Comment: Giant platelets present. SENT FOR PATHOLOGY REVIEW Ordering Provid er: YINA HAGAN Report Released Date/Time: Jan 30, 2022 10:32 AM Reporting Lab: [facility] [place] [facility] [address] [facility] [address] Performing Lab: [facility] [place] [facility] [address] [facility] [address] SEGS 47 L 48-78 BANDS 5 0-10 LYMPHS 16 10-55 MONOS 23 H 2-12 VARIANT LYMPHOCYTES 5 0-6 OTHER/CELL 4 Jan 30, 2022 11:25 [facility] [place] URINALYSIS S pecimen Type: URINE AM HCS No comment enter ed. Ordering Provid er: BENTLEYYINA Report Released Date/Time: Jan 30, 2022 10:32 AM Reporting Lab: [facility] [address] [facility] [address] Performing Lab: [facility] [address] [facility] [address] UA COLOR Yellow Yellow UA APPEARANCE Clear Clear UA GLUCOSE Negative Negative UA KETONES Negative Neg UA BLOOD Moderate Neg UA PROTEIN 30 Neg UA NITRITE Negative Neg UA BILIRUBIN Negative Neg UA SPECIFIC GRAVITY 1.027 H 1.016-1.02 2 UA pH 5.0 5.0-9.0 UA UROBILINOGEN <2.0 <2.0 UA LEUKOCYTE ESTERASE Negative Neg Jan [facility] LYME Specimen Type: SERUM 14, WSTRN SEROLOGY Comment: The [facility] SEROLOGY PANEL was performed using the FDA-approved RADSONE YINA Borrelia burdorferi modified two-tier test system. This modified methodology uses a second EIA in place of a western imm 2021 [place] PANEL unoblot assay, w hich the FDA has determined is substantially equivalent to or better than standard two-tier testing using western blot. Supplemental testing with a second EIA meets CDC guidelines for 11:25 [facility] Lyme disease aren ting. Performance characteristics of the panel were validated at the [facility]. Results are considered [...] departments, if applicable. The [place] State Form U RL is: http://www.[place].gov/dp/dru/dph/infectious_diseases/pdf_forms_/sz79_drgx.pdf Ordering Provid er: BENTLEYYINA Report Released Date/Time: Feb 03, 2022 12:51 PM Reporting Lab: [facility] [place] [facility] [address] [facility] [address] Performing Lab: [facility] [place] [facility] [address] [facility] [address] TIER 1 LYME SCREENING EIA Negative Nega tive LYME AB FINAL INTERPRETATION Negative N egative Jan 30, 2022 11:25 [facility] SMEAR CONSULT ([facility]) Specimen Type: BLOOD AM [place] [facility] Comment: SEE [id number] Ordering Provid er: YINA HAGAN Report Released Date/Time: Jan 30, 2022 12:51 PM Reporting Lab: [facility] [place] [facility] [address] [facility] [address] Performing Lab: [facility] [place] [facility] [address] [facility] [address] SMEAR CONSULT ([facility]) comment Social History: Smoking Status (Most current) and Tobacco Use (All prior to encounter date) This section includes the most current, and the historical, smoking and tobacco-related health factors from the [place] facility where the Encounter took place.Current Smoking Status This section includes the most current smoking, or tobacco-related health factor, from the [place] facility where the Encounter took place. Date/Time Current Smoking Status Comment Facility May 23, 2021 02:30 PM VA-TOBACCO NEVER USED GA C NTRL W[facility]N [place] [facility] Encounter Notes: All associated encounter notes This section contains the clinical notes associated to the Encounter. Date/Time Encounter Note(s) Provider Source Jan 02, 2022 04:00 PM MENTAL HEALTH TELEPHONE ENCOUNTER NOTE: ANIVAL CARR [place] [facility] LOCAL TITLE: TELEPHONE NOTE/MENTAL HEALTH [place] [facility] STANDARD TITLE: MENTAL HEALTH TELEPHONE ENCOUNTE R NOTE DATE OF NOTE: JAN 02, 2022@16:00 ENTRY DATE: JAN 02, 2022@16:34:48 AUTHOR: ANIVAL DEL ANGEL EXP COSIGNER: URGENCY: STATUS: COMPLETED Diagnosis: PTSD; MDD Length of call: 33 minutes [facility] time for telephone check in. [place] shared he spoke with the [facility] and they are recommending their 3 week residential program in their [facility]. He yolanda d he is open to this and is hoping they can get him in t his summer when he is on break from classes. He said he plans to just tell his work if he is working and make it happen. He also shared he wanted to make com ing in person to see automatic typewriter inspector once or twice a month a priority and just let his boss know. He is expec ting to be finishing this job possibly tomorrow, and may have a break between jobs, but he also could get another job next week. He ho pes that the next job will be closer to [place] and the [place] so he won't need to take as much time from work. Sash Installer reminded him also of [facility] program and provided details about it. He is concerned about the 6 weeks given his schedule and write r reflected a 3 week program felt more possible for him right now. [place] shared his s/i has been less often and l ess intense. He said he has noticed that he has had some intrusive thoughts when driving of driving into the ulises with opposite traffic. He said he has never moved his car in the other ulises, and it is fleeting (doesn't linger or beco me repetitive) and he uses various skills such as keepi ng his mind focused in front of him and counting or pacing with the car ahead of him. He yolanda d he doesn't have intent or plan to do it, and doesn't have any spe cific suicidal thoughts when that intrusive thought arises. He asked about this. [place] denied any presence of other suicidal ideations. Sash Installer provided feedback, including n oticing that this may be an indicator of his stress leve ls and affirmed his willingness and intention to put more attention on his mental health care. Also identified that the thoughts were incongruent with his wishes/plans and the differ ence between thoughts, urges, and actions. Provided additional suggestion of r eminding himself that I wouldn't do that to my kids (which is what he s aid), this thought will pass, and to refocus as he has been. Also reminded/enc ouraged him to use the crisis line if he should have need (which he is typically reluctant to do). is aware of that number and has access to his safet y plan. Sash Installer also shared ninfaa yaneth resources that she received from the Suicide Risk Management Consultation Program. These include s elf-guided problem solving skills program, and online DBT skills videos. Al so let him know about the [place] PTSD speech coach and Mindfulness apps. Baljeet isn't s ure if he reset his secure messaging password but will take a look, and in the meantime automatic typewriter inspector will send him these resources. Will provide these resources in person next week if he is unable to get them from secure messaging. Avi hernandez was engaged, calm, and expressing motivation to wor k on his mental health and has taken a positive step by engaging with [facility]. He castro s not want to seek inpatient admission at this time and given he is denying plan or intent for suicide, an involuntary admission is not indicated. /ivelisse/ ANIVAL DEL ANGEL [facility] CLINICAL FRONT END DEVELOPER DESIGNER Signed: 01/03/2022 08:37
--- OUTSIDE RECORDS SUMMARY | 2022-04-18 10:03 | XMS_ITS ---
:1990 Author Organization Department [facility] rs Address [address] [place] [address] Support Name Relationship Address Phone TETE TRAN Unavailable [address] [place] [address] THOMAS MONTOYA Unavailable [address] [facility] [place] [address] Insurance Providers: All historical and current Section [...] Policy Number Ojeda [facility] Aug 03, [id number] [phone] ROSA MARIA CowanPR PATIENT BEE GIMENEZ [id number] STEPHANIE JOHNSON [facility] DEPT Selected Encounter This section includes the information on record at VA for the Encounter. Date/Time Encounter Type Encounter Reason Provider Source Description Dec 26, 2021 PRO PHONE TELEPHONE ICD-10-CM F43.10 MER,DA 04:00 PM CALL 5-10 MIN Post-traumatic IE stress disorder, unspecified with Provider Comments: Posttraumatic stress disorder ([facility] [id number]) IHE Encounter Template Text not used by VA Assessments - Encounter Diagnoses This section includes the primary and secondary diagnoses documented for the Encounter. Date/Time Primary/Secondary Diagnosis Name Provider Source Diagnosis Dec 26, 2021 PRIMARY Post-traumatic MER,VERO ID CNT WS TRN 04:00 PM stress disorder, [facility] [place] [facility] unspecified Dec 26, 2021 SECONDARY Major depressive MER,VERO ID CNTR WSTRN 04:00 PM disorder, [facility] [facility] recurrent, moderate Plan of Treatment: Future Appointments (+ 6 months) and Future Tests (+/- 45 days) The Plan of Treatment section includes future care activities for the patient from all [facility]. This section includes future appointments and future orders which are active, pending orscheduled.Future Appointments This section includes appointments that were scheduled to occur 6 months from the date of the Encounter, up to a maximum of 20 appointments. The data comes from all ID treatment facilities. Appointment Date/Time Appointment Type Appointment Facili ty Name Jan 09, 2022 04:00 PM AMBULATORY - PSYCHIATRY [facility] [place] [facility] Jan 23, 2022 02:30 PM AMBULATORY - PSYCHIATRY [facility] [place] [facility] Jan 30, 2022 08:00 AM AMBULATORY - MEDICINE [facility] [place] [facility] Jan 30, 2022 11:45 AM AMBULATORY - MEDICINE [facility] [place] [facility] Jan 30, 2022 01:00 PM AMBULATORY - MEDICINE [facility] [place] [facility] Feb 04, 2022 02:15 PM AMBULATORY - NONE [facility] [place] [facility] Feb 06, 2022 04:00 PM AMBULATORY - PSYCHIATRY [facility] [place] [facility] Feb 07, 2022 01:00 PM AMBULATORY - MEDICINE [facility] [place] [facility] Feb 10, 2022 01:15 PM AMBULATORY - MEDICINE [facility] [place] [facility] Feb 10, 2022 01:45 PM AMBULATORY - MEDICINE [facility] [place] [facility] Feb 12, 2022 09:00 AM AMBULATORY - PSYCHIATRY [facility] [place] [facility] Feb 14, 2022 12:00 PM AMBULATORY - PSYCHIATRY [facility] [place] [facility] Feb 25, 2022 01:00 PM AMBULATORY - PSYCHIATRY [facility] [place] [facility] Feb 27, 2022 02:00 PM AMBULATORY - PSYCHIATRY [facility] [place] [facility] Mar 17, 2022 03:00 PM AMBULATORY - PSYCHIATRY [facility] [place] [facility] Mar 28, 2022 09:00 AM AMBULATORY - PSYCHIATRY [facility] [place] [facility] Apr 17, 2022 01:00 PM AMBULATORY - NONE [place] CNTRL [place] [facility] Apr 25, 2022 09:00 AM AMBULATORY - PSYCHIATRY ID CNTRL [facility] [place] [facility] May 09, 2022 09:00 AM AMBULATORY - PSYCHIATRY ID [facility]TRL [facility] [place] [facility] May 23, 2022 09:00 AM [facility] Social History: Smoking Status (Most current) and Tobacco Use (All prior to encounter date) This section includes the most current, and the historical, smoking and tobacco-related health factors from the ID facility where the Encounter took place.Current Smoking Status This section includes the most current smoking, or tobacco-related health factor, from the ID facility where the Encounter took place. Date/Time Current Smoking Status Comment Facility May 23, 2021 02:30 PM VA-TOBACCO NEVER USED ID C NTRL WSN [facility] Encounter Notes: All associated encounter notes This section contains the clinical notes associated to the Encounter. Date/Time Encounter Note(s) Provider Source Dec 26, 2021 04:03 PM MENTAL HEALTH TELEPHONE ENCOUNTER NOTE: ANIVAL CARR [facility] LOCAL TITLE: TELEPHONE NOTE/MENTAL HEALTH [facility] STANDARD TITLE: MENTAL HEALTH TELEPHONE ENCOUNTE R NOTE DATE OF NOTE: DEC 26, 2021@16:03 ENTRY DATE: DEC 26, 2021@16:03:09 AUTHOR: ANIVAL DEL ANGEL EXP COSIGNER: URGENCY: STATUS: COMPLETED Diagnosis: PTSD; MDD Length of phone call:5 minutes [place] picked up the phone for today's scheduled phone appointment. He said he had forgotten and was in the car but not alone. He asked to reschedule. He said I'm doing all right though and that he has a plan for an intake with [facility] their [facility] Od todd tomorrow. Offered to reschedule. He said next week would work so rescheduled for them. Of note, creative writer spoke with a instructional systems design consultant from the Suicide Risk Management Consultation Program ([facility]) on 12/24 and the consul tation was completed. Merchandise Flow Team Member will follow up with topics a nd strategies discussed and document these and their outcome next session with . /ivelisse/ ANIVAL DEL ANGEL CLERK GENERAL OFFICE CLINICAL TYPING BOOKKEEPER Signed: 12/26/2021 16:08
--- OUTSIDE RECORDS SUMMARY | 2022-04-18 10:04 | XMS_ITS ---
:1990 [address] Department of [facility] rs Address [address] [place] [address] Support Name Relationship Address Phone TETE TRAN Unavailable [address] [facility] [phone] [address] [place] [address] THOMAS MONTOAY Unavailable [address] [place] [address] Insurance Providers: All historical and current Section Date Range: From patient's date of to the date document was created.This section includes the names of all active insurance providers for the patient. Insurance Type of Plan Start of End of Group Member Insurance Policy P atient's Provider Coverage Name Policy Policy Number ID Provider's Ojeda's Relationship Coverage Coverage Telephone Name to Policy Number Ojeda [facility] Aug 03, [id number] [phone] ALIAROSINA Mane PATIENT BEE GIMENEZ 2019 [id number] STEPHANIE JOHNSON [facility] DEPT Selected Encounter This section includes the information on record at [place] for the Encounter. Date/Time Encounter Type Encounter Description Reason Provider Source Nov 13, 2021 10:05 Outpatient Encounter [facility] - [facility] IHE Encounter Template Text not used by [place] Plan of Treatment: Future Appointments (+ 6 months) and Future Tests (+/- 45 days) The Plan of Treatment section includes future care activities for the patient from all [place] treatmentfacilities. This section includes future appointments and future orders which are active, pending orscheduled.Future Appointments This section includes appointments that were scheduled to occur 6 months from the date of the Encounter, up to a maximum of 20 appointments. The data comes from all [place] treatment facilities. Appointment Date/Time Appointment Type Appointment Facili ty Name December 12, 2021 04:00 PM [facility] Dec 19, 2021 11:45 AM [facility] Dec 19, 2021 02:30 PM AMBULATORY [facility] Dec 20, 2021 04:00 PM AMBULATORY [facility] Dec 26, 2021 04:00 PM AMBULATORY [facility]ATRY [facility] Jan 09, 2022 04:00 PM AMBULATORY [facility]RY [facility] Jan 23, 2022 02:30 PM AMBULATORY [facility] Jan 30, 2022 08:00 AM [facility]ULATORY [facility]IC[facility] Jan 30, 2022 11:45 AM [facility]UL[facility]ORY [facility] Jan 30, 2022 01:00 PM AMBULATORY [facility] MEDIC[facility] Feb 04, 2022 02:15 PM AMBULATORY - NONE [facility] [place] [facility] Feb 06, 2022 04:00 PM AMBULATORY [facility] Feb 07, 2022 01:00 PM AMBULATORY [facility]IC[facility] Feb 10, 2022 01:15 PM AMBULATORY [facility]IC[facility] Feb 10, 2022 01:45 PM AMBULATORY [facility]IC[facility] Feb 12, 2022 09:00 AM AMBULATORY - PS[facility]IATRY [facility] Feb 14, 2022 12:00 PM AMBULATORY [facility] Feb 25, 2022 01:00 PM AMBULATORY [facility] PS[facility]RY [facility] Feb 27, 2022 02:00 PM AMBULATORY - PS[facility]IATRY [facility] Mar 17, 2022 03:00 PM AMBULATORY - PS[facility]CHIATRY [facility] Social History: Smoking Status (Most current) and Tobacco Use (All prior to encounter date) This section includes the most current, and the historical, smoking and tobacco-related health factors from the VA facility where the Encounter took place.Current Smoking Status This section includes the most current smoking, or tobacco-related health factor, from the [place] facility where the Encounter took place. Date/Time Current Smoking Status Comment Facility May 23, 2021 02:30 PM VA-TOBACCO NEVER USED CO [facility] Encounter Notes: All associated encounter notes This section contains the clinical notes associated to the Encounter. Date/Time Encounter Note(s) Provider Source Nov 13, 2021 10:06 ADMINISTRATIVE NOTE: YANG VALVERDE [facility] TITLE: ADMINISTRATIVE RECALL NOTE [facility] STANDARD TITLE: ADMINISTRATIVE NOTE DATE OF NOTE: NOV 13, 2021@10:06 ENTRY DATE: NOV 13, 2021@10:06:05 AUTHOR: YANG VALVERDE EXP COSIGNER: URGENCY: STATUS: COMPLETED RTC orders: Unable to contact patient: Attempts to contact: 1st attempt: Left voicemail 2nd attempt: Letter mailedDisposition onMay 11,2 022 3rd attempt: 4th attempt: /ivelisse/ YANG VALVERDE Signed: 11/13/2021 10:06
--- OUTSIDE RECORDS SUMMARY | 2022-04-18 10:04 | XMS_ITS | Encounter Summary ---
:[address] [facility] Address [address] [place] [address] Support Name Relationship Address Phone TETE TRAN Unavailable [address] [facility] [place] [address] THOMAS MONTOYA Unavailable [address] [facility] [place] [address] Insurance Providers: All historical and current Section Date Range: From patient's date of to the date document was created.This section includes the names of all active insurance providers for the patient. Insurance Type of Plan Start of End of Group Member Insurance Policy P atient's Provider Coverage Name Policy Policy Number ID Provider's Ojeda's Relationship Coverage Coverage Telephone Name to Policy Number Ojeda [facility] Aug 03, [id number] [phone] ALIAROSINA Mane 2019 [id number] STEPHANIE JOHNSON [facility] Selected Encounter This section includes the information on record at [place] for the Encounter. Date/Time Encounter Type Encounter Description Reason Provider Source December 06, 2021 10:44 Outpatient Encounter DENTAL AM IHE Encounter Template Text not used by [place] Plan of Treatment: Future Appointments (+ 6 months) and Future Tests (+/- 45 days) The Plan of Treatment section includes future care activities for the patient from all [place] treatmentfacilities. This section includes future appointments and future orders which are active, pending orscheduled.Future Appointments This section includes appointments that were scheduled to occur 6 months from the date of the Encounter, up to a maximum of 20 appointments. The data comes from all [place] treatment facilities. Appointment Date/Time Appointment Type Appointment Facili ty Name December 12, 2021 04:00 PM AMBULATORY - PSYCHIATRY [facility] Dec 19, 2021 11:45 AM [facility]UL[facility]IC[facility] [place] [facility] Dec 19, 2021 02:30 PM AMBULATORY - PS[facility]IATRY [facility] [place] [facility] Dec 20, 2021 04:00 PM AMBULATORY - PS[facility]IATRY [facility] [place] [facility] Dec 26, 2021 04:00 PM AMBULATORY - PS[facility]IATRY [facility] [place] [facility] Jan 09, 2022 04:00 PM AMBULATORY - PS[facility]IATRY [facility] [place] [facility] Jan 23, 2022 02:30 PM AMBULATORY - PS[facility]IATRY [facility] [place] [facility] Jan 30, 2022 08:00 AM AMBULATORY [facility] MEDICINE [facility] [place] [facility] Jan 30, 2022 11:45 AM AMBULATORY - MEDICINE [facility] [place] [facility] Jan 30, 2022 01:00 PM AMBULATORY - MEDICINE [facility] [place] [facility] Feb 04, 2022 02:15 PM AMBULATORY - NONE [facility] [place] [facility] Feb 06, 2022 04:00 PM AMBULATORY - PS[facility]CHIATRY [facility] [place] [facility] Feb 07, 2022 01:00 PM AMBULATORY - MEDICINE [facility] [place] [facility] Feb 10, 2022 01:15 PM AMBULATORY - MEDICINE [facility] [place] [facility] Feb 10, 2022 01:45 PM AMBULATORY - MEDICINE [facility] [place] [facility] Feb 12, 2022 09:00 AM AMBULATORY - PS[facility]CHIATRY [facility] [place] [facility] Feb 14, 2022 12:00 PM AMBULATORY - PS[facility]CHIATRY [facility] [place] [facility] Feb 25, 2022 01:00 PM AMBULATORY - PS[facility]CHIATRY [facility] [place] [facility] Feb 27, 2022 02:00 PM AMBULATORY - PS[facility]CHIATRY [facility] [place] [facility] Mar 17, 2022 03:00 PM AMBULATORY - PS[facility]CHIATRY [facility] [place] [facility] Social History: Smoking Status (Most current) [...] 23, 2021 02:30 PM VA-TOBACCO NEVER USED [facility] Encounter Notes: All associated encounter notes This section contains the clinical notes associated to the Encounter. Date/Time Encounter Note(s) Provider Source December 06, 2021 10:45 DENTISTRY ADMINISTRATIVE NOTE: MARGARITO GASPAR [place] [facility] TITLE: DENTAL ADMINISTRATIVE NOTE [facility] STANDARD TITLE: DENTISTRY ADMINISTRATIVE NOTE DATE OF NOTE: DECEMBER 06, 2021@10:45 ENTRY DATE: DECEMBER 06, 2021@10:45:04 AUTHOR: MONIKA GASPAR EXP COSIGNER: URGENCY: STATUS: COMPLETED Called and spoke with pt. Patients appointment w ith (dental) on (01/24/2022)has been cancelled and was resche duled to 02/07/2022 @ 2:15pm. /ivelisse/ MONIKA GASPAR Signed: 12/06/2021 10:46
--- OUTSIDE RECORDS SUMMARY | 2022-04-18 10:04 | XMS_ITS | Encounter Summary ---
:1990 Author Organization Department of [facility] rs Address [address] [place] [address] Support Name Relationship Address Phone TETE TRAN Unavailable [address] [place] [address] THOMAS MONTOYA Unavailable [address] [place] [address] Insurance Providers: All historical and current Section [...] [facility] Aug 03, [id number] [phone] ALIAROSINA Mane PATIENT BEE GIMENEZ 2019 [id number] STEPHANIE JOHNSON [facility] DEPT Selected Encounter This section includes the information on record at [place] for the Encounter. Date/Time Encounter Type Encounter Description Reason Provider Source Nov 06, 2021 10:00 Outpatient Encounter [facility] IHE Encounter Template Text not used by CT Plan of Treatment: Future Appointments (+ 6 months) and Future Tests (+/- 45 days) The Plan of Treatment section includes future care activities for the patient from all [place] treatmentfacilities. This section includes future appointments and future orders which are active, pending orscheduled.Future Appointments This section includes appointments that were scheduled to occur 6 months from the date of the Encounter, up to a maximum of 20 appointments. The data comes from all [place] treatment facilities. Appointment Date/Time Appointment Type Appointment Facili ty Name December 12, 2021 04:00 PM AMBULATORY - PSYCHIATRY [facility] Dec 19, 2021 11:45 AM AMBULATORY - MEDICINE [facility] [place] [facility] Dec 19, 2021 02:30 PM AMBULATORY - PSYCHIATRY [facility] [place] [facility] Dec 20, 2021 04:00 PM AMBULATORY - PSYCHIATRY [facility] [place] [facility] Dec 26, 2021 04:00 PM AMBULATORY - PS[facility]CHIATRY [facility] [place] [facility] Jan 09, 2022 04:00 PM AMBULATORY - PSYCHIATRY [facility] [place] [facility] Jan 23, 2022 02:30 PM AMBULATORY - PSYCHIATRY [facility] [place] [facility] Jan 30, 2022 08:00 AM AMBULATORY - MEDICINE [facility] [place] [facility] Jan 30, 2022 11:45 AM AMBULATORY - MEDICINE [facility] [place] [facility] Jan 30, 2022 01:00 PM AMBULATORY - MEDICINE [facility] [place] [facility] Feb 04, 2022 02:15 PM AMBULATORY - NONE [facility] [place] [facility] Feb 06, 2022 04:00 PM AMBULATORY - PSYCHIATRY [facility] [place] [facility] Feb 07, 2022 01:00 PM AMBULATORY - MEDICINE [facility] [place] [facility] Feb 10, 2022 01:15 PM AMBULATORY - MEDICINE [facility] [place] [facility] Feb 10, 2022 01:45 PM AMBULATORY - MEDICINE [facility] [place] [facility] Feb 12, 2022 09:00 AM AMBULATORY - PSYCHIATRY [facility] [place] [facility] Feb 14, 2022 12:00 PM AMBULATORY - PSYCHIATRY [facility] [place] [facility] Feb 25, 2022 01:00 PM AMBULATORY - PSYCHIATRY [facility] [place] [facility] Feb 27, 2022 02:00 PM AMBULATORY - PSYCHIATRY [facility] [place] [facility] Mar 17, 2022 03:00 PM AMBULATORY - PS[facility]CHIATRY [facility] [place] [facility] Social History: Smoking Status (Most current) and Tobacco Use (All prior to encounter date) This section includes the most current, and the historical, smoking and tobacco-related health factors from the [facility] facility where the Encounter took place.Current Smoking Status This section includes the most current smoking, or tobacco-related health factor, from the [place] facility where the Encounter took place. Date/Time Current Smoking Status Comment Facility May 23, 2021 02:30 PM VA-TOBACCO NEVER USED [facility] C [facility] Encounter Notes: All associated encounter notes This section contains the clinical notes associated to the Encounter. Date/Time Encounter Note(s) Provider Source Nov 06, 2021 09:56 AM ADMINISTRATIVE NOTE: XANDER PEREA TRL [facility] LOCAL TITLE: ADMINISTRATIVE NOTE [facility] STANDARD TITLE: ADMINISTRATIVE NOTE DATE OF NOTE: NOV 06, 2021@09:56 ENTRY DATE: NOV 06, 2021@09:56:55 AUTHOR: XANDER PEREA EXP COSIGNER: URGENCY: STATUS: COMPLETED [place] called and left a voicemail for provider stating that he cannot attend group any longer due to a wo rk schedule conflict. This provider called him back and left a voicemail wishing him well and encouraging him to call this provider if in the future he would like to discuss re-eng agment. /ivelisse/ Xander Perea PsyD Staff Psychologist Signed: 11/06/2021 09:57
--- OUTSIDE RECORDS SUMMARY | 2022-04-18 10:04 | XMS_ITS ---
:[address] [facility] Address [address] [place] [address] Support Name Relationship Address Phone TETE TRAN Unavailable [address] [facility] [phone] [address] [place] [address] THOMAS MONTOYA Unavailable 6 [facility] [address] Insurance Providers: All historical and current Section Date Range: From patient's date of to the date document was created.This section includes the names of all active insurance providers for the patient. Insurance Type of Plan Start of End of Group Member Insurance Policy P atient's Provider Coverage Name Policy Policy Number ID Provider's Ojeda's Relationship Coverage Coverage Telephone Name to Policy Number Ojeda [facility] Aug 03, [id number] [phone] ROSA MARIA ChapoTX PATIENT BEE GIMENEZ 2019 [id number] STEPHANIE JOHNSON [facility] DE[facility] Selected Encounter This section includes the information on record at [place] for the Encounter. Date/Time Encounter Type Encounter Reason Provider Source Description Nov 12, 2021 Outpatient TELEPHONE ICD-10-CM F33.1 WINSTON STUART 02:00 PM Encounter Major depressive YASH disorder, recurrent, moderate with Provider Comments: Moderately severe recurrent major depression (SCT [id number]) IHE Encounter Template Text not used by VA Assessments - Encounter Diagnoses This section includes the primary and secondary diagnoses documented for the Encounter. Date/Time Primary/Secondary Diagnosis Name Provider Source Diagnosis Nov 12, 2021 PRIMARY Major depressive WINSTON STUART [facility] 02:00 PM disorder, [facility] recurrent, moderate Nov 12, 2021 SECONDARY Post-traumatic WINSTON STUART [facility] WS TRN 02:00 PM stress disorder, YASH [facility] unspecified Plan of Treatment: Future Appointments (+ 6 months) and Future Tests (+/- 45 days) The Plan of Treatment section includes future care activities for the patient from all [facility]. This section includes future appointments and future orders which are active, pending orscheduled.Future Appointments This section includes appointments that were scheduled to occur 6 months from the date of the Encounter, up to a maximum of 20 appointments. The data comes from all [place] treatment facilities. Appointment Date/Time Appointment Type Appointment Facili ty Name December 12, 2021 04:00 PM AMBULATORY - PS[facility]CHIATRY [facility] [place] [facility] Dec 19, 2021 11:45 AM AMBULATORY - MEDICINE [facility] [place] [facility] Dec 19, 2021 02:30 PM AMBULATORY - PSYCHIATRY [facility] [place] [facility] Dec 20, 2021 04:00 PM AMBULATORY - PSYCHIATRY [facility] [place] [facility] Dec 26, 2021 04:00 PM AMBULATORY - PSYCHIATRY [facility] [place] [facility] Jan 09, 2022 04:00 PM AMBULATORY - PSYCHIATRY [facility] [place] [facility] Jan 23, 2022 02:30 PM AMBULATORY - PSYCHIATRY [facility] [place] [facility] Jan 30, 2022 08:00 AM AMBULATORY - MEDICINE [facility] [place] [facility] Jan 30, 2022 11:45 AM AMBULATORY - MEDICINE [facility] [place] [facility] Jan 30, 2022 01:00 PM AMBULATORY - MEDICINE [facility] [place] [facility] Feb 04, 2022 02:15 PM AMBULATORY - NONE [facility] [place] [facility] Feb 06, 2022 04:00 PM AMBULATORY - PSYCHIATRY [facility] [place] [facility] Feb 07, 2022 01:00 PM AMBULATORY - MEDICINE [facility] [place] [facility] Feb 10, 2022 01:15 PM AMBULATORY - MEDICINE [facility] [place] [facility] Feb 10, 2022 01:45 PM AMBULATORY - MEDICINE [facility] [place] [facility] Feb 12, 2022 09:00 AM AMBULATORY - PSYCHIATRY [facility] [place] [facility] Feb 14, 2022 12:00 PM AMBULATORY - PSYCHIATRY [facility] [place] [facility] Feb 25, 2022 01:00 PM AMBULATORY - PSYCHIATRY [place] [facility] [place] [facility] Feb 27, 2022 02:00 PM AMBULATORY - PSYCHIATRY [facility] [place] [facility] Mar 17, 2022 03:00 PM [facility] Social History: Smoking Status (Most current) and Tobacco Use (All prior to encounter date) This section includes the most current, and the historical, smoking and tobacco-related health factors from the [place] facility where the Encounter took place.Current Smoking Status This section includes the most current smoking, or tobacco-related health factor, from the [place] facility where the Encounter took place. Date/Time Current Smoking Status Comment Facility May 23, 2021 02:30 PM VA-TOBACCO NEVER USED [facility] Encounter Notes: All associated encounter notes This section contains the clinical notes associated to the Encounter. Date/Time Encounter Note(s) Provider Source Nov 14, 2021 12:16 TELEPHONE ENCOUNTER NOTE: DENISE STUART [facility] LOCAL TITLE: TELEHEALTH TELEPHONE NOTE [facility] STANDARD TITLE: TELEPHONE ENCOUNTER NOTE DATE OF NOTE: NOV 14, 2021@12:16 ENTRY DATE: NOV 14, 2021@12:16:38 AUTHOR: DENISE STUART EXP COSIGNER: URGENCY: STATUS: COMPLETED Time Spent: 13 minutes Patient consents to telehealth telephone visit t esteban as he didn't realize his appt. today was originally scheduled to be in [facility]. MENTAL HEALTH NOTE: GEORGE MONTOYA, a 31 year old WHITE MALE had telehealth telephone visit today after he didn't show up in person to his f b[facility] to [facility] clinic appt. with me. Two forms of identification was used. 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 He feels more scatterbrained. He says the only ch beatris he has had in his life recently was his going back to work. He says things with his baby boy are going well. He says he forgot to renew his ativan when it ran out 2-3 weeks ago. George continues in therapy with Ramya. He s ays that he is keeping busy with life and restarted at w ork. He says his new baby boy is pretty chill for a baby so this helps. He did feel more anxious o n Thursday and wanted to just run away. He says this feeling lasted the day, but he was able to manage it. He denies active suicidal thinking or plans or i ntent. SUBSTANCE ABUSE: Caffeine: denies Tobacco: denies Cocaine: denies Opioid: denies Alcohol: Says he doesn't drink alcohol v milvia much. He says he will drink a beer every few months. Cannabis: smokes marijuana Previous medication trials: Celexa, Prazosin, Ga bapentin, Melatonin, Ativan, Remeron, seroquel, Trazodone Current meds: Active and Recently Outpatient Medicatio ns (excluding Supplies): Active Outpatient Medications Status 1) BUPROPION HCL 150MG 12HR SA TAB TAKE ONE TABL ET BY ACTIVE MOUTH TWICE DAILY FOR DEPRESSION AND ANXIETY. D OSE INCREASE. 2) CARBOXYMETHYLCELLULOSE 0.5% OPH SOLN INSTILL 1 DROP ACTIVE INTO EACH EYE FOUR TIMES A DAY 3) ESCITALOPRAM OXALATE 20MG TAB TAKE ONE TABLET BY ACTIVE MOUTH EVERY MORNING FOR MOOD/DEPRESSION 4) GABAPENTIN 400MG CAP TAKE ONE CAPSULE BY MOUT H FOUR ACTIVE TIMES A DAY FOR ANXIETY. 5) PRAZOSIN HCL 2MG CAP TAKE FOUR CAPSULES BY MO UTH AT ACTIVE BEDTIME - OFF LABEL USE FOR PTSD SYMPTOMS. DOSE INCREASE FROM 6 MG. 6) SODIUM FLUORIDE 1.1% TOOTHPASTE BRUSH SMALL A MOUNT TO ACTIVE TEETH AT BEDTIME DIRECTED FOR TWO MINUTES, I N PLACE OF YOUR REGULAR TOOTHPASTE. AFTER USE, SP IT OUT. FOR PREVENTION OF DENTAL CARIES AND SENSITIVITY. 7) TRAZODONE HCL 100MG TAB TAKE ONE AND ONE-HALF TABLETS ACTIVE BY MOUTH AT BEDTIME NEEDED FOR SLEEP Inactive Outpatient Medications Status 1) LORAZEPAM 1MG TAB TAKE ONE TABLET BY MOUTH ON CE DAILY NEEDED FOR EXTREME ANXIETY. TEMPORARY DOSE INCREASE. 8 Total Medications MEDICATION ADHERENCE: takes medications most day s MEDICATION SIDE EFFECTS: none OBJECTIVE:recent labs:LAB RESULTS LAST 1440 HRS - NONE FOUND Weight: 191 lb [86.64 kg] (08/07/2021 10:58) BMI : 29.1 MENTAL STATUS EXAM: Orientation and Consciousness: Alert and fully o riented. Behavior: calm and cooperative. Speech: Normal rate and volume. Mood/Affect: more anxious and depressed. Affec t: constricted. Thought Production/Content: Logical, sequential & relevant to discussion. Perceptual Disturbances: None. Attention, concentration and memory based on ans wers to session questions: Good. Insight/Judgment: Both good. SI/HI: Neither elicited. Ability to Provide informed consent: Yes. ASSESSMENT:31 year old WHITE MALE, prese [facility] today for mental health follow up. TREATMENT PLAN/ DISCUSSION/ RATIONALE: 1.::: Medication management: Reviewed medication s with George today. He continues on his regimen of lexapro 20 mg daily, wellbutrin SR 150 mg BID, Trazodone 150 mg qHS prn insomnia, gabap entin 400 mg QID and Prazosin 8 mg qHS and lorazepam 1 mg daily prn anxiety (though he ran out 2-3 weeks ago and didn't think to call for a renewal). George doesn't us e the ativan daily anyway. Usually 15 tabs last him a month or more. Lucien wolfe requests more than 15 tabs for the next refill due to his anxiety level. We talked again about the dependency that can occur with medications like lorazepam and to try and make this last more than a month if possible. Will order him 30 tabs of ativan 1 mg for this next renewal. We discussed swit licha to wellbutrin XL 300 mg daily to help him with compliance as he sometimes will fo rget the second daily dose of wellbutrin. No other changes to his medications today. He has refills available. He will continue in therapy w valeria Bui and will call if he needs anything before his next appt. He has his safety plan and has numbers to crisis. Next Visit: in 1 month. Patient is aware of how to access [facility] open [facility] clinic in [facility] during weekdays for immediate mental health [...] the risk/severity of substance abuse relapses) ::: MASS PAT was checked -- and there were no du plications, nor evidence of external acquisition of narcotics n or any contraindications with ongoing prescription of narcotics through this VA facility. ::: Psychotropic meds were reconciled; and no [...] e.g., ER) and in the community (i pouding Crisis Line, 911, [place] National Suicide Prevention Lifeline: 3-701- 660-AQOT). Patient is instructed to contact me should symptoms worsen or side effects develop. Pt agreed to use these resources if warranted. ::: Pt was educated about risks of interactions between drugs/alcohol and psychotropic medications and voiced understandi ng. Pt was also warned not to drive [...] whether with a VA or non-VA provider. Medication Reconciliation: Outpatient: Has the patient been [...] whether with a VA or non-VA provider. Medication Reconciliation: Outpatient: Has the patient been taking medications as docu mented in the EMLR? YES: The patient has been taking medications as documented in the EMLR. Essential Medication List for Review used to co mplete this medication reconciliation. INCLUDED IN THIS LIST: Alphabetical list of act cristy outpatient prescriptions dispensed from this VA (local) an d dispensed from another [place] or [facility] facility (remote) as well as inpatien t [...] provider. /ivelisse/ DENISE STUART MD PSYCHIATRIST Signed: 11/14/2021 12:18
--- OUTSIDE RECORDS SUMMARY | 2022-04-18 10:04 | XMS_ITS ---
:1990 Author Organization Department of [facility] rs Address [address] [place] [address] Support Name Relationship Address Phone ELISA TRAN Unavailable [address] [facility] [place] [address] THOMAS MONTOYA Unavailable [address] [place] [address] Insurance Providers: All historical and current Section Date Range: From patient's date of to the date document was created.This section includes the names of all active insurance providers for the patient. Insurance Type of Plan Start of End of Group Member Insurance Policy P atient's Provider Coverage Name Policy Policy Number ID Provider's Ojeda's Relationship Coverage Coverage Telephone Name to Policy Number Ojeda [facility] Aug 03, [id number] [phone] ROSA MARIA ChapoIN [facility]IENT [facility] 2019 [id number] [facility] Selected Encounter This section includes the information on record at [place] for the Encounter. Date/Time Encounter Type Encounter Reason Provider Source Description Oct 30, 2021 GROUP PSYCHOTHERAPY MENTAL HEALTH ICD-10-CM F43.10 DAVID PEREA 10:00 AM CLINIC-GROUP Post-traumatic stress disorder, unspecified with Provider Comments: Post-traumatic stress disorder, unspecified (ICD-10-CM F43.10) IHE Encounter Template Text not used by VA Assessments - Encounter Diagnoses This section includes the primary and secondary diagnoses documented for the Encounter. Date/Time Primary/Secondary Diagnosis Name Provider Source Diagnosis Oct 30, 2021 PRIMARY Post-traumatic DAVID PEREA [facility] W[facility] N 11:30 AM stress disorder, [place] [facility] unspecified Plan of Treatment: Future Appointments (+ 6 months) and Future Tests (+/- 45 days) The Plan of Treatment section includes future care activities for the patient from all [facility]. This section includes future appointments and future orders which are active, pending orscheduled.Future Appointments This section includes appointments that were scheduled to occur 6 months from the date of the Encounter, up to a maximum of 20 appointments. The data comes from all [place] treatment facilities. Appointment Date/Time Appointment Type Appointment Facili ty Name December 12, 2021 04:00 PM AMBULATORY - PSYCHIATRY [facility] [place] [facility] Dec 19, 2021 11:45 AM AMBULATORY - MEDICINE [facility] [place] [facility] Dec 19, 2021 02:30 PM AMBULATORY - PSYCHIATRY [facility] [place] [facility] Dec 20, 2021 04:00 PM AMBULATORY - PSYCHIATRY [facility] [place] [facility] Dec 26, 2021 04:00 PM AMBULATORY - PSYCHIATRY [facility] [place] [facility] Jan 09, 2022 04:00 PM AMBULATORY - PSYCHIATRY [facility] [place] [facility] Jan 23, 2022 02:30 PM AMBULATORY - PSYCHIATRY [facility] [place] [facility] Jan 30, 2022 08:00 AM AMBULATORY - MEDICINE [facility] [place] [facility] Jan 30, 2022 11:45 AM AMBULATORY - MEDICINE [facility] [place] [facility] Jan 30, 2022 01:00 PM AMBULATORY - MEDICINE [facility] [place] [facility] Feb 04, 2022 02:15 PM AMBULATORY - NONE [facility] [facility] Feb 06, 2022 04:00 PM AMBULATORY - PSYCHIATRY [facility] [place] [facility] Feb 07, 2022 01:00 PM AMBULATORY - MEDICINE [facility] [place] [facility] Feb 10, 2022 01:15 PM AMBULATORY - MEDICINE [facility] [place] [facility] Feb 10, 2022 01:45 PM AMBULATORY - MEDICINE [facility] [place] [facility] Feb 12, 2022 09:00 AM AMBULATORY - PSYCHIATRY [facility] [place] [facility] Feb 14, 2022 12:00 PM AMBULATORY - PSYCHIATRY [facility] [place] [facility] Feb 25, 2022 01:00 PM [facility] Feb 27, 2022 02:00 PM AMBULATORY - PSYCHIATRY [facility] Mar 17, 2022 03:00 PM AMBULATORY - PSYCHIATRY [facility] Social History: Smoking Status (Most current) and Tobacco Use (All prior to encounter date) This section includes the most current, and the historical, smoking and tobacco-related health factors from the [place] facility where the Encounter took place.Current Smoking Status This section includes the most current smoking, or tobacco-related health factor, from the [place] facility where the Encounter took place. Date/Time Current Smoking Status Comment Facility May 23, 2021 02:30 PM VA-TOBACCO [facility] USED [facility] Encounter Notes: All associated encounter notes This section contains the clinical notes associated to the Encounter. Date/Time Encounter Note(s) Provider Source Oct 30, 2021 11:19 AM PSYCHIATRY GROUP COUNSELING NOTE: ROSANA PEREA [facility] LOCAL TITLE: PSYCHOLOGY GROUP NOTE [facility] STANDARD TITLE: PSYCHIATRY GROUP COUNSELING NOTE DATE OF NOTE: OCT 30, 2021@11:19 ENTRY DATE: OCT 30, 2021@11:19:54 AUTHOR: DAVID PEREA EXP COSIGNER: URGENCY: STATUS: COMPLETED SESSION DURATION: 55 minutes PRESENTING PROBLEM(S): Veterans presented via VV C to today's OIF/OEF/OND/[place] War focused process group. Faci litator of the group is Dr. David Perea. SESSION CONTENT: This 45-55 min group is geared towards helping V etana marian's build a cohesive and trusting group where they can relat e with others deployment and re-adjustment experience on an in timate level. The primary focus is on processing thoughts, feeling s, and memories that may be impeding their progress, as well as helpi ng them create a successful transition/readjustment to civilian l [place]. Some didactics are included occasionally. FREQUENCY OF Group: Weekly, Wednesdays at 10:00am. There was no endo rsement of suicidal or homicidal ideation, plan, or intent during to day's group. 10 Members attended todays group. Todays group f ocused on PTSD and how it may impact their sense of safety in their john e living environment. Members shared stories about how they either laurie id people or set up their home environment to reduce contact with feared shukri pro. Members spoke about their different individual psychotherapy P TSD treatment experiences and how it has helped some of them. Veterans als o spoke about what it took to find a good fit with an individual therapist and some of the pros and cons of persisting with it until they find a good fit . Vet was mostly quiet, but related to other membe rs on the topic of trying out different types of PTSD therapy. DSM-5 DIAGNOSIS: PTSD, Chronic [place] Video Connect (VVC) Standard Documentation VV Clinician Resources Only: E911 (Emergency Call Relay Center): [phone] National Veterans Crisis Line - ( 7-250-015-TALK) press #1. SUSIE Suicide Coordinator [phone], Ext. [phone]; Back-up Ext. [phone] Apn of the Day(AOD), Henry RICHARDS [phone], Ext. [phone] Introduction: Visit is being conducted by [place] [employer]. identified with 2 identifiers: [X] Full Name [X] Date of [ ] VA ID Card Emergency Plan: confirmed and/or provided the following information in case of emergency or technology failure. PATIENT PHONE - PHONE NUMBER [CELLULAR] - Is patient phone number correct, if not, enter b elow: [facility]'s phone number: GEORGE URIARTE JAN [address], [place], [address] 's present location and address for appoi ntment: Same as above 's emergency contact name and phone numbe r: Elisa Montoya () [phone] reported that location is private and fe: Yes Informed Consent: informed of the risks and benefits of [facility] video care. [place] [facility] has the right to refuse video services. If refuses video visit, a szrh-ns-oyka visit will be scheduled. [place] verbalized consent for this video visit: Yes provided consent for any other persons p resent for visit: N/A If yes, who and relationship to patient: Secure visit: Visit was locked for security and privacy:Yes /es/ David Perea PsyD Staff Psychologist Signed: 10/30/2021 11:36
--- OUTSIDE RECORDS SUMMARY | 2022-04-18 10:04 | XMS_ITS ---
:1990 Author Organization Department of [facility] rs Address [address] [place] [address] Support Name Relationship Address Phone TETE TRAN Unavailable [address] [facility] [address] THOMAS MONTOYA Unavailable [address] [place] [address] Insurance Providers: All historical and current Section Date Range: From patient's date of to the date document was created.This section includes the names of all active insurance providers for the patient. Insurance Type of Plan Start of End of Group Member Insurance Policy P atient's Provider Coverage Name Policy Policy Number ID Provider's Ojeda's Relationship Coverage Coverage Telephone Name to Policy Number Ojeda [facility] Aug 03, [id number] [phone] ALIAROSINA Mane PATIENT BEE GIMENEZ 2019 [id number] STEPHANIE JOHNSON [facility] DEPT Selected Encounter This section includes the information on record at [place] for the Encounter. Date/Time Encounter Type Encounter Description Reason Provider Source Nov 12, 2021 02:00 Outpatient Encounter [facility] PM - IND IHE Encounter Template Text not [...] 12, 2021 04:00 PM [facility] Dec 19, 2021 11:45 AM [facility]IC[facility] [place] [facility] Dec 19, 2021 02:30 PM AMBULATORY [facility]IATRY [facility] [place] [facility] Dec 20, 2021 04:00 PM AMBULATORY - [facility]IATRY [facility] [place] [facility] Dec 26, 2021 04:00 PM AMBULATORY - PS[facility]CHIATRY [facility] [place] [facility] Jan 09, 2022 04:00 PM AMBULATORY - [facility]CHIATRY [facility] [place] [facility] Jan 23, 2022 02:30 PM AMBULATORY - PS[facility]CHIATRY [facility] [place] [facility] Jan 30, 2022 08:00 AM AMBULATORY [facility] MEDICINE [facility] [place] [facility] Jan 30, 2022 11:45 AM AMBULATORY [facility] MEDICINE [facility] [place] [facility] Jan 30, 2022 01:00 PM AMBULATORY [facility] MEDICINE [facility] [place] [facility] Feb 04, 2022 02:15 PM AMBULATORY - NONE [facility] [place] [facility] Feb 06, 2022 04:00 PM AMBULATORY - PS[facility]CHIATRY [facility] [place] [facility] Feb 07, 2022 01:00 PM AMBULATORY - MEDICINE [facility] [place] [facility] Feb 10, 2022 01:15 PM AMBULATORY - MEDICINE [facility] [place] [facility] Feb 10, 2022 01:45 PM AMBULATORY - MEDICINE [facility] [place] [facility] Feb 12, 2022 09:00 AM AMBULATORY - PS[facility]CHIATRY [facility] [place] [facility] Feb 14, 2022 12:00 PM AMBULATORY - PSYCHIATRY [facility] [place] [facility] Feb 25, 2022 01:00 PM AMBULATORY - PS[facility]CHIATRY [facility] [place] [facility] Feb 27, 2022 02:00 PM AMBULATORY - PS[facility]CHIATRY [facility] [place] [facility] Mar 17, 2022 03:00 PM AMBULATORY - PSYCHIATRY [facility] [place] [facility] Social History: Smoking Status (Most current) and Tobacco Use (All prior to encounter date) This section includes the most current, and the historical, smoking and tobacco-related health factors from the VA facility where the Encounter took place.Current Smoking Status This section includes the most current smoking, or tobacco-related health factor, from the VA facility where the Encounter took place. Date/Time Current Smoking Status Comment Facility May 23, 2021 02:30 PM VA-TOBACCO NEVER USED [place] [facility] Encounter Notes: All associated encounter notes This section contains the clinical notes associated to the Encounter. Date/Time Encounter Note(s) Provider Source Nov 12, 2021 09:59 AM ACCOUNTING OF DISCLOSURES NOTE: HOWRAD STUART [place] [facility] LOCAL TITLE: STATE PRESCRIPTION DRUG MONITORING PROGRAM [facility] STANDARD TITLE: ACCOUNTING OF DISCLOSURES NOTE DATE OF NOTE: NOV 12, 2021@09:59:15 ENTRY DATE: NOV 12, 2021@09:59:15 AUTHOR: DENISE STUART EXP COSIGNER: URGENCY: STATUS: COMPLETED This PDMP query was submitted by Amaury Stuart. The clinical justification for this PDMP query i s to review controlled substances prescribed outside of the [facility], and any additional information that may become available, as an important compo nent of standard clinical care, and in accordance with [facility] policy. Patient information was shared with the PDMP Rebecca Spinzo [place]. Prescription(s) filled outside the VA in the las t 90 days are noted (2 day script for oxycodone (5 tabs) filled in September fr om non VA provider). However, they do not raise significan t safety concerns and do not influence the treatment plan at this time. /ivelisse/ DENISE STUART MD PSYCHIATRIST Signed: 11/14/2021 12:13
--- OUTSIDE RECORDS SUMMARY | 2022-04-18 10:04 | XMS_ITS | Encounter Summary ---
:1990 Author Organization Department [facility] rs Address [address] [place] [address] Support Name Relationship Address Phone TETE TRAN Unavailable [address] [facility] [place] [address] THOMAS MONTOYA Unavailable [address] [place] [address] Insurance Providers: All historical and current Section [...] [facility] Aug 03, [id number] [phone] ROSA MARIA ChapoWI PATIENT BEE GIMENEZ 2019 [id number] STEPHANIE JOHNSON [facility] DEPT Selected Encounter This section includes the information on record at [facility] for the Encounter. Date/Time Encounter Type Encounter Reason Provider Source Description Dec 19, 2021 Outpatient TELEPHONE ICD-10-CM F43.10 MATY STUART 02:30 PM Encounter Post-traumatic ELYN stress disorder, unspecified with Provider Comments: Posttraumatic stress disorder ([facility] [id number]) IHE Encounter Template Text not used by VA Assessments - Encounter Diagnoses This section includes the primary and secondary diagnoses documented for the Encounter. Date/Time Primary/Secondary Diagnosis Name Provider Source Diagnosis Dec 19, 2021 PRIMARY Post-traumatic WINSTON STUART [place] [facility] 02:30 PM stress disorder, [facility] unspecified Dec 19, 2021 SECONDARY Major depressive WINSTON STUART [place] [facility] 02:30 PM disorder, [facility] recurrent, moderate Plan of Treatment: Future Appointments (+ 6 months) and Future Tests (+/- 45 days) The Plan of Treatment section includes future care activities for the patient from all [facility]. This section includes future appointments and future orders which are active, pending orscheduled.Future Appointments This section includes appointments that were scheduled to occur 6 months from the date of the Encounter, up to a maximum of 20 appointments. The data comes from all [place] treatment facilities. Appointment Date/Time Appointment Type Appointment Facili ty Name Dec 20, 2021 04:00 PM AMBULATORY - PSYCHIATRY [facility] [place] [facility] Dec 26, 2021 04:00 PM AMBULATORY - PSYCHIATRY [facility] [place] [facility] Jan 09, 2022 04:00 PM AMBULATORY - PSYCHIATRY [facility] [place] [facility] Jan 23, 2022 02:30 PM AMBULATORY - PSYCHIATRY [facility] [place] [facility] Jan 30, 2022 08:00 AM AMBULATORY - MEDICINE [facility] [place] [facility] Jan 30, 2022 11:45 AM AMBULATORY - MEDICINE [facility] [place] [facility] Jan 30, 2022 01:00 PM AMBULATORY - MEDICINE [facility] [place] [facility] Feb 04, 2022 02:15 PM AMBULATORY - NONE [facility] [place] [facility] Feb 06, 2022 04:00 PM AMBULATORY - PSYCHIATRY [facility] [place] [facility] Feb 07, 2022 01:00 PM AMBULATORY - MEDICINE [facility] [place] [facility] Feb 10, 2022 01:15 PM AMBULATORY - MEDICINE [facility] [place] [facility] Feb 10, 2022 01:45 PM AMBULATORY - MEDICINE [facility] [place] [facility] Feb 12, 2022 09:00 AM AMBULATORY - PSYCHIATRY [facility] [place] [facility] Feb 14, 2022 12:00 PM AMBULATORY - PSYCHIATRY [facility] [place] [facility] Feb 25, 2022 01:00 PM AMBULATORY - PSYCHIATRY [facility] [place] [facility] Feb 27, 2022 02:00 PM AMBULATORY - PSYCHIATRY [facility] [place] [facility] Mar 17, 2022 03:00 PM AMBULATORY - PSYCHIATRY [facility] [place] [facility] Mar 28, 2022 09:00 AM AMBULATORY - PSYCHIATRY [place] [facility] [place] [facility] Apr 17, 2022 01:00 PM AMBULATORY - NONE [place] [facility] [place] [facility] Apr 25, 2022 09:00 AM AMBUL[facility] [place] [facility] [place] [facility] History: Smoking Status (Most current) and Tobacco Use (All prior to encounter date) This section includes the most current, and the historical, smoking and tobacco-related health factors from the [place] facility where the Encounter took place.Current Smoking Status This section includes the most current smoking, or tobacco-related health factor, from the [place] facility where the Encounter took place. Date/Time Current Smoking Status Comment Facility May 23, 2021 02:30 PM VA-TOBACCO NEVER USED [place] [facility] Encounter Notes: All associated encounter notes This section contains the clinical notes associated to the Encounter. Date/Time Encounter Note(s) Provider Source Dec 19, 2021 12:31 TELEPHONE ENCOUNTER NOTE: DENISE STUATR CNTRL [facility] LOCAL TITLE: TELEHEALTH TELEPHONE NOTE [facility] STANDARD TITLE: TELEPHONE ENCOUNTER NOTE DATE OF NOTE: DEC 19, 2021@12:31 ENTRY DATE: DEC 19, 2021@12:31:49 AUTHOR: DENISE STUART EXP COSIGNER: URGENCY: STATUS: COMPLETED Time Spent: 26 minutes Patient consents to telehealth telephone visit cathi orellana for mental health follow up. MENTAL HEALTH NOTE: GEORGE MONTOYA, a 31 year old WHITE MALE had telehealth telephone visit today for mental health follow up, which lasted 26 minutes. Two forms of identification was used. 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 He denies anything external triggering things or making things wors e. He has been feeling more depressed. He also reports ongoing suicidal thin nain lately that he doesn't want to be around. He denies active tho ughts of suicide or intent. He doesn't feel his thoughts are as bad as when he sought treatment in the past. He feels he can't take off work right now in orde r to go inpatient, financially, but is watching how he is doing and he says he will seek admission if he feels things are getting too difficult to manage. He stays al cristy for his family. Simba says that work has taken him to the [facility] and this is further away from home. Simba says that he takes his medicatio ns, though he does forget sometimes. He is trying to keep up with therapy sessions with Ramya. He feels his job is keeping him from really working in therapy on himself and making changes. He says he is doing the best he can. SUBSTANCE ABUSE: Caffeine: denies Tobacco: denies Cocaine: denies Opioid: denies Alcohol: Says he doesn't drink alcohol v milvia much. He says he will drink a beer every few months. Cannabis: smokes marijuana Previous medication trials: Celexa, Prazosin, [place] bapentin, Melatonin, Ativan, Remeron, seroquel, Trazodone Current meds: Active and Recently Outpatient Medicatio ns (excluding Supplies): Active Outpatient Medications Status 1) BUPROPION HCL 300MG 24HR SA TAB TAKE ONE TABL ET BY ACTIVE MOUTH EVERY MORNING FOR DEPRESSION/ANXIETY 2) CARBOXYMETHYLCELLULOSE 0.5% OPH SOLN INSTILL 1 [...] Normal rate and volume. Mood/Affect: ok. Affect: constricted. Thought Production/Content: Logical, sequential & relevant to discussion. Perceptual Disturbances: None. Attention, concentration and memory based on answers to session questions: Good. Insight/Judgment: Both good. SI/HI: Neither elicited. Ability to Provide informed consent: Yes. ASSESSMENT:31 year old WHITE MALE, [facility] for mental health follow up. TREATMENT PLAN/ DISCUSSION/ RATIONALE: 1.::: Medication management: Reviewed medication s with George today. He continues on his regimen of wellbutrin XL 300 mg daily, lexapro 20 mg daily, gabapentin 400 mg QID, Ativan 1 mg daily prn (for extreme anxiety), Prazosin 8 mg qHS and Trazodone 150 mg qHS insomnia. Lucien wolfe reports feeling his mood remains low quite often. He is still going to wo rk and taking care of his family despite his depression. We discussed opti ons today to address the depression. He is willing to try a dose increase in the wellbutrin XL from 300 mg daily to 450 mg daily. He will let me know if he has any side effects to this change. The rest of his medications will re main the same. We discussed inpatient admission for mental health stabilizat ion. George was able to appreciate the benefits of this option. George does not feel he needs inpatient admission today; h owever, he is aware this is an option for him if he feels he would want this. He will contin ue in therapy with Ramya weekly for support. Next Visit: in 2 weeks. Patient is aware of how to access [facility] clinic in [facility] during weekdays for immediate mental health [...] e.g., ER) and in the community ([facility] [place] National Suicide Prevention Lifeline: 8-146- 270-EQFC). Patient is instructed to contact me should [...] [facility] (local) an d dispensed from another [place] or [facility] facility (remote) as well as inpatien t [...] provider. /ivelisse/ DENISE STUART MD PSYCHIATRIST Signed: 12/23/2021 14:44
--- OUTSIDE RECORDS SUMMARY | 2022-04-18 10:04 | XMS_ITS | Encounter Summary ---
:1990 Author Organization Department [facility] rs Address [address] [place] [address] Support Name Relationship Address Phone TETE TRAN Unavailable 36 [facility] [phone] [address] [place] [address] THOMAS MONTOYA Unavailable 6 [facility] [place] [address] Insurance Providers: All historical and current Section Date Range: From patient's date of to the date document was created.This section includes the names of all active insurance providers for the patient. Insurance Type of Plan Start of End of Group Member Insurance Policy P atient's Provider Coverage Name Policy Policy Number ID Provider's Ojeda's Relationship Coverage Coverage Telephone Name to Policy Number Ojeda [facility] Aug 03, [id number] [phone] ROSA MARIA CowanSC PATIENT BEE GIMENEZ 2019 [id number] STEPHANIE [facility]NSON [facility] DEPT Selected Encounter This section includes the information on record at [facility] for the Encounter. Date/Time Encounter Type Encounter Reason Provider Source Description December 12, 2021 PSYTX W PT 30 TELEPHONE ICD-10-CM F43.10 LUCINDA DEL ANGEL 04:00 PM MINUTES Post-traumatic IE stress disorder, unspecified with Provider Comments: Posttraumatic stress disorder ([facility] [id number]) IHE Encounter Template Text not used by VA Assessments - Encounter Diagnoses This section includes the primary and secondary diagnoses documented for the Encounter. Date/Time Primary/Secondary Diagnosis Name Provider Source Diagnosis December 12, 2021 PRIMARY Post-traumatic MERDAI IN CNTR WS TRN 04:00 PM stress disorder, [facility] [place] [facility] unspecified December 12, 2021 SECONDARY Major depressive MERVERO IN CNTR WSTRN 04:00 PM disorder, [place] [...] 20 appointments. The data comes from all [place] treatment facilities. Appointment Date/Time Appointment Type Appointment Facili ty Name Dec 19, 2021 11:45 AM AMBULATORY - MEDICINE [place] [facility] [place] [facility] Dec 19, 2021 02:30 PM AMBULATORY - PSYCHIATRY [facility] [place] [facility] Dec 20, 2021 04:00 PM AMBULATORY - PSYCHIATRY [facility] [place] [facility] Dec 26, 2021 04:00 PM AMBULATORY - PSYCHIATRY [facility] [place] [facility] Jan 09, 2022 04:00 PM AMBULATORY - PSYCHIATRY [facility] [place] [facility] Jan 23, 2022 02:30 PM AMBULATORY - PSYCHIATRY [facility] [place] [facility] Jan 30, 2022 08:00 AM AMBULATORY - MEDICINE [facility] [place] [facility] Jan 30, 2022 11:45 AM AMBULATORY - MEDICINE [facility] [place] [facility] Jan 30, 2022 01:00 PM AMBULATORY - MEDICINE [facility] [place] [facility] Feb 04, 2022 02:15 PM AMBULATORY - NONE [place] [facility] [place] [facility] Feb 06, 2022 04:00 PM AMBULATORY - PSYCHIATRY [facility] [place] [facility] Feb 07, 2022 01:00 PM AMBULATORY - MEDICINE [place] [facility] [place] [facility] Feb 10, 2022 01:15 PM AMBULATORY - MEDICINE [place] [facility] [place] [facility] Feb 10, 2022 01:45 PM AMBULATORY - MEDICINE [facility] [place] [facility] Feb 12, 2022 09:00 AM AMBULATORY - PSYCHIATRY [facility] [place] [facility] Feb 14, 2022 12:00 PM AMBULATORY - PSYCHIATRY [facility] [place] [facility] Feb 25, 2022 01:00 PM AMBULATORY - PSYCHIATRY [place]L [place] [facility] Feb 27, 2022 02:00 PM AMBULATORY - PSYCHIATRY [place]L [place] [facility] Mar 17, 2022 03:00 PM [facility] Mar 28, 2022 09:00 AM AM[facility] Social History: Smoking Status (Most current) and Tobacco Use (All prior to encounter date) This section includes the most current, and the historical, smoking and tobacco-related health factors from the [place] facility where the Encounter took place.Current Smoking Status This section includes the most current smoking, or tobacco-related health factor, from the [place] facility where the Encounter took place. Date/Time Current Smoking Status Comment Facility May 23, 2021 02:30 PM VA-TOBACCO NEVER USED [facility] Encounter Notes: All associated encounter notes This section contains the clinical notes associated to the Encounter. 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 He said he can feel the difference not working on my mental health. 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 He described himself as sustaining, cov ering the bare minimum and maintaining the job . He said his PTSD, the de pression, I feel it just more intense because I'm not working on it with you . He said he noticed the foundation we were working on when he wasn't w orking and able to make it to sessions was helping. He said he is trying to me ditate and stay on top of taking his medication. He said he feels disconne cted from others and that he realizes he is in a different place mentally . He shared having s/i yesterday, triggered by his and the neighbor's d ogs barking at each other and a panel braking (in the fence?). This heightened his PTSD symptoms. He got in an argument with his , and had s/i. He said he toke a lorazepam and went and lied down on the couch. He did some breath w ork and reminded himself he is safe, and tried to talk himself down from the s/i. He said the thoughts were as they usually are when he has s/i - of ta nain his gun and shooting himself. He said this s/i was not as intense as it has been in the past. He described in the past when it has been acute get ting a static feeling in his body, and a feeling like his body is vibrati ng, as well a sound in his ears. This did not occur. He said crying and hit ting the couch helped. He had also told himself you got a son dude...stay put ...you're going to rose this up . He said he had s/i a few times this mo nth, last night being the worst. SESSION FOCUS: suicide prevention; support INTERVENTIONS: Psychotherapeutic Interventions: Assessment of sxs, s/i, well-being, and needs. Reviewed lethal means safety planning. He still has the gun and ammo separate (one in the attic, one in the garage). He contin ues to not want to store either off his property. Reviewed his safety plan, particularly the copin g strategies. Affirmed things he did do. Reminded him of crisis line and discu ssed some of his hesitation of this (having read a story about a corey ling the crisis line and it in the end causing him negative repercussions). Provided reflective listening while also reassurance regarding using the crisi s line. Also encouraged him to call his supports. Discussed his treatment. Dovray continues to no t be able to engage regularly or in person (or VVC) because of his job and the location. However given it will end in a month, there's a chance he will carter ve another period of time laid off and he is hoping for a job closer to ho and his treatment. In the meantime he is agreeing to phone check-ins as wa s done today. ASSESSMENT: BRIEF ASSESSMENT OF MENTAL STATUS: 1. Appearance (grooming, attire, apparent age) within normal limits: Yes 2. Thought content was organized and goal direc christo: Yes 3. Speech was coherent and unimpaired: Yes 4. Affect was appropriate and unremarkable: Yes 5. Demeanor was calm, with no signs of agitatio n or restlessness: N/A 6. Sleep was largely unimpaired and restful: Not asked 7. No evidence of psychosis (hallucinations or delusions): Yes 8. Mood was normal: Depressed Other Observations: RISK ASSESSMENT: See above. 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 Nail Welter will continue to monitor and engage around suicide pr evention. He is not amenable to engage further (in person or [facility], residential or inpatient) in treatment unfortunately because of his family/work, so edu foley will continue to connect with him over the phone. He reports he felt a lo t better speaking with commercial insurance underwriter and expresses commitment to staying in touch and working towards re- engagement when his schedule allows. Dovray clarke ld be a candidate for later therapy appointments, however even those he carmen ot do given his work and parenting responsibilities. He also expresses wa nting to continue working with this commercial insurance underwriter. PLAN FOR FOLLOW-UP: Phone call next week /ivelisse/ ANIVAL DEL ANGEL [facility] CLINICAL COLORMAN Signed: 12/13/2021 08:17 Receipt Acknowledged By: * AWAITING SIGNATURE * DENISE STUART * AWAITING SIGNATURE * AGUSTIN BURT
--- OUTSIDE RECORDS SUMMARY | 2022-04-18 10:05 | XMS_ITS | Encounter Summary ---
:1990 Author Organization Department of [facility] rs Address [address] [place] [address] Support Name Relationship Address Phone TETE TRAN Unavailable [address] [place] [address] THOMAS MONTOYA Unavailable 6 [facility] [place] [address] Insurance Providers: All historical and current Section [...] Number Ojeda [facility] Aug 03, [id number] [phone] ALIAROSINA Mane PATIENT BEE GIMENEZ 2019 [id number] STEPHANIE [facility]NS[facility] DEPT Selected Encounter This section includes the information on record at [place] for the Encounter. Date/Time Encounter Type Encounter Reason Provider Source Description Oct 07, 2021 [place] [facility] [employer] TELEPHONE/CHAPLAI ICD-10-CM Z71.81 MISHEL VALERA 10:08 AM TRAVEL RN OR N Spiritual or INDIVIDU orthodox counseling with Provider Comments: Spiritual or Roman Catholic Counseling IHE Encounter Template Text not used by [place] Assessments - Encounter Diagnoses This section includes the primary and secondary diagnoses documented for the Encounter. Date/Time Primary/Secondary Diagnosis Name Provider Source Diagnosis Oct 07, 2021 PRIMARY Spiritual or LAVERNE VALERA [place] CNTR[place] WSTR N 10:08 AM orthodox [place] [facility] counseling Plan of Treatment: Future Appointments (+ 6 [...] Appointment Type Appointment Facili ty Name Oct 08, 2021 09:00 AM AMBULATORY - PSYCHIATRY [facility] [place] [facility] Oct 09, 2021 10:00 AM AMBULATORY - PSYCHIATRY [facility] [place] [facility] Oct 15, 2021 02:30 PM AMBULATORY - NONE [place] [facility] [place] [facility] Oct 16, 2021 10:00 AM AMBULATORY - PSYCHIATRY [facility] [place] [facility] Oct 18, 2021 09:00 AM AMBULATORY - PSYCHIATRY [facility] [facility] Oct 23, 2021 10:00 AM AMBULATORY - PSYCHIATRY [facility] [facility] Oct 30, 2021 10:00 AM AMBULATORY - PSYCHIATRY [facility] [place] [facility] December 12, 2021 04:00 PM AMBULATORY - PSYCHIATRY [facility] [facility] Dec 19, 2021 11:45 AM AMBULATORY - MEDICINE [place] [facility] [place] [facility] Dec 19, 2021 02:30 PM AMBULATORY - PSYCHIATRY [facility] [facility] Dec 20, 2021 04:00 PM AMBULATORY - PSYCHIATRY [facility] [facility] Dec 26, 2021 04:00 PM AMBULATORY - PSYCHIATRY [facility] [facility] Jan 09, 2022 04:00 PM AMBULATORY - PSYCHIATRY [facility] [facility] Jan 23, 2022 02:30 PM AMBULATORY - PSYCHIATRY [facility] [facility] Jan 30, 2022 08:00 AM AMBULATORY - MEDICINE [place] [facility] [place] [facility] Jan 30, 2022 11:45 AM AMBULATORY - MEDICINE [place] [facility] [place] [facility] Jan 30, 2022 01:00 PM AMBULATORY - MEDICINE [place] [facility] [place] [facility] Feb 04, 2022 02:15 PM AMBULATORY - NONE [place] [facility] [place] [facility] Feb 06, 2022 04:00 PM AMBULATORY - [facility] Feb 07, 2022 01:00 PM [facility]UL[facility] Social History: Smoking Status (Most current) [...] 23, 2021 02:30 PM VA-TOBACCO NEVER USED [place] [facility] Encounter Notes: All associated encounter notes This section contains the clinical notes associated to the Encounter. 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 He did not answer, so a voicemail message was left f or him requesting a call back at [phone], ext. [phone]. /es/ REV. LAVERNE VALERA [facility] STAFF [employer] Signed: 10/07/2021 10:11 Receipt Acknowledged By: * AWAITING SIGNATURE * ANIVAL DEL ANGEL
--- OUTSIDE RECORDS SUMMARY | 2022-04-18 10:05 | XMS_ITS | Encounter Summary ---
:1990 Author Organization Department of [facility] rs Address [address] [place] [address] Support Name Relationship Address Phone TETE TRAN Unavailable 36 [facility] [place] [address] THOMAS MONTOYA Unavailable 6 [facility] [place] [address] Insurance Providers: All historical and current Section [...] to Policy Number Ojeda [facility] Aug 03, [id number] [phone] ALIAROSINA Mane PATIENT BEE GIMENEZ 2019 [id number] [facility]IE [facility] DE[facility] Selected Encounter This section includes the information on record at [place] for the Encounter. Date/Time Encounter Type Encounter Reason Provider Source Description Oct 08, 2021 PSYTX W PT 45 MENTAL HEALTH ICD-10-CM F43.10 MER,CHRI ST 09:00 AM MINUTES CLINIC - IND Post-traumatic IE stress disorder, unspecified with Provider Comments: Posttraumatic stress disorder ([facility] [id number]) IHE Encounter Template Text not used by VA Assessments - Encounter Diagnoses This section includes the primary and secondary diagnoses documented for the Encounter. Date/Time Primary/Secondary Diagnosis Name Provider Source Diagnosis Oct 08, 2021 PRIMARY Post-traumatic MER,VERO [place] CNTRL WS TRN 12:06 PM stress disorder, [facility] [facility] unspecified Oct 08, 2021 SECONDARY Major depressive MER,VERO AR CNTRL WSTRN 12:06 PM disorder, [facility] [facility] recurrent, moderate Plan of Treatment: Future Appointments (+ 6 months) and Future Tests (+/- 45 days) The Plan of Treatment section includes future care activities for the patient from all [place] [facility]. This section includes future appointments and future orders which are active, pending orscheduled.Future Appointments This section includes appointments that were scheduled to occur 6 months from the date of the Encounter, up to a maximum of 20 appointments. The data comes from all [place] treatment facilities. Appointment Date/Time Appointment Type Appointment Facili ty Name Oct 09, 2021 10:00 AM AMBULATORY - PSYCHIATRY [facility] [place] [facility] Oct 15, 2021 02:30 PM AMBULATORY - NONE [place] [place] [facility] Oct 16, 2021 10:00 AM AMBULATORY - PSYCHIATRY [facility] [facility] Oct 18, 2021 09:00 AM AMBULATORY - PSYCHIATRY [facility] [facility] Oct 23, 2021 10:00 AM AMBULATORY - PSYCHIATRY [facility] [facility] Oct 30, 2021 10:00 AM AMBULATORY - PSYCHIATRY [facility] [facility] December 12, 2021 04:00 PM AMBULATORY - PSYCHIATRY [facility] [facility] Dec 19, 2021 11:45 AM AMBULATORY - MEDICINE [place] [facility] [place] [facility] Dec 19, 2021 02:30 PM AMBULATORY - PSYCHIATRY [facility] [facility] Dec 20, 2021 04:00 PM AMBULATORY - PSYCHIATRY [facility] [facility] Dec 26, 2021 04:00 PM AMBULATORY - PSYCHIATRY [facility] [facility] Jan 09, 2022 04:00 PM AMBULATORY - PSYCHIATRY [facility] [facility] Jan 23, 2022 02:30 PM AMBULATORY - PSYCHIATRY [facility] [facility] Jan 30, 2022 08:00 AM AMBULATORY - MEDICINE [place] [facility] [place] [facility] Jan 30, 2022 11:45 AM AMBULATORY - MEDICINE [place] [facility] [place] [facility] Jan 30, 2022 01:00 PM AMBULATORY - MEDICINE [place] [facility] [place] [facility] Feb 04, 2022 02:15 PM AMBULATORY - NONE [place] [facility] Feb 06, 2022 04:00 PM AMBULATORY - PSYCHIATRY [place] [place] [facility] Feb 07, 2022 01:00 PM AMBULATORY - MEDICINE [place] [facility] Feb 10, 2022 01:15 PM AMBULATORY - MEDICINE [facility] Social History: Smoking Status (Most [...] 02:30 PM VA-TOBACCO NEVER USED [place] C NTR WSTRN [facility] Encounter Notes: All associated encounter notes This section contains the clinical notes associated to the Encounter. Date/Time Encounter Note(s) Provider Source Oct 08, 2021 09:00 AM MENTAL HEALTH NOTE: ANIVAL DEL ANGEL AR CNT RL WSTRN LOCAL TITLE: EMDR THERAPY NOTE [facility] STANDARD TITLE: MENTAL HEALTH NOTE DATE OF NOTE: OCT 08, 2021@09:00 ENTRY DATE: OCT 08, 2021@09:58:13 AUTHOR: ANIVAL DEL ANGEL EXP COSIGNER: URGENCY: STATUS: COMPLETED EMDR THERAPY NOTE Has ADDENDA Individual therapy: Eye Movement Desensitization and Reprocessing Therapy (EMDR): FIRST PROCESSING Length of session in minutes: 50 EMDR session number: 1 SESSION CONTENT: Met with to continue EM DR for PTSD in relation to: Incident of mother crying over of her son in [place] ASSESSMENT - Phase 3 We initiated processing of the worst event with the following information gathered during the assessment phase: Target memory: see above Image/Sensory information: mother crying over her son Negative cognition: I am a monster Positive cognition: I am a good person Validity of cognition:1 (1 completely false to 7 completely true) Emotions/feelings: anger, guilt, sadness, grief Subjective units of distress (LAVELL): (0 no distre ss to 10 maximum distress) unable to identify - noticing some avoidance Location of body sensation: tension DESENSITIZATION - Phase 4 [place] completed numerous sets of bilat eral stimulation. The following themes were noted: Dissociation was described/noted - ability to pu sh it out/away, and/or not feeling very present. Can sh ut down emotions quickly and also feel sometimes out of his body. Desensitization not completed (LAVELL > 0) CLOSURE - Phase 7 Reprocessing of the memory was not completed, so we conducted a closure exercise to debrief 's experience today a nd to prepare for the possibility of continued processing during the w cachil dehe. [place] identified the most important part of today's session as: Discussed his difficulty being with his emotions and the dissociative and avoidance responses. [facility] acknowledged [facility]. Discussed focusing instead on how to be with his emotions. Will work on this first in EMDR as a precursor to rima ng the trauma. Provided an exercise at home: name the emotion I am feeling where am I feeling it in my body take a calming breath and notice the emotion lik e an ocean wave Closed session with container. MENTAL STATUS: Engaged, full range of emotions, motivated. Noe crowe a hard time focusing at times, at times fidgety. A s michelle emotion of sadness/guilt came over him at one point when being asked what he might need to be able to be with the traumatic event, and he shared to be a ble to know that the family was okay. He started to tear up, but then visibly sh ut it down and said he then wasn't feeling anything. DIAGNOSTIC IMPRESSIONS: Consideration of dissociative subtype of PTSD PLAN: [place] will be scheduled for a return individua l psychotherapy session for: next week /ivelisse/ VELASQUEZ RAJAN CLINICAL ASSOCIATE PROFESSOR OF RADIOLOGY Signed: 10/08/2021 12:06 10/08/2021 ADDENDUM STATUS: COMPLETED Religious Education Teacher also assessed for s/i. He denied this. /ivelisse/ VELASQUEZ RAJAN CLINICAL ASSOCIATE PROFESSOR OF RADIOLOGY Signed: 10/08/2021 15:22
--- OUTSIDE RECORDS SUMMARY | 2022-04-18 10:05 | XMS_ITS | Encounter Summary ---
:1990 Author Organization Department of [facility] rs Address [address] [place] [address] Support Name Relationship Address Phone TETE TRAN Unavailable [address] [place] [address] THOMAS MONTOYA Unavailable 6 [facility] [place] [address] Insurance Providers: All historical and current Section [...] to Policy Number O[facility]eda [facility] Aug 03, [id number] [phone] ALIADarlyn CowanND PATIENT BEE GIMENEZ 2019 [id number] STEPHANIE JOHNSON [facility] ORGANIZ E DEPT Selected Encounter This section includes the information on record at [facility] for the Encounter. Date/Time Encounter Type Encounter Reason Provider Source Description Oct 18, 2021 PSYTX W PT 45 MENTAL HEALTH ICD-10-CM F43.10 MER,CHRI ST 09:00 AM MINUTES CLINIC - IND Post-traumatic IE stress disorder, unspecified with Provider Comments: Posttraumatic stress disorder ([facility] [id number]) IHE Encounter Template Text not used by VA Assessments - Encounter Diagnoses This section includes the primary and secondary diagnoses documented for the Encounter. Date/Time Primary/Secondary Diagnosis Name Provider Source Diagnosis Oct 18, 2021 PRIMARY Post-traumatic MER,VERO [place] [facility] WS TRN 12:23 PM stress disorder, [facility] [place] [facility] unspecified Oct 18, 2021 SECONDARY Major depressive MER,VERO [place] [facility] 12:23 PM disorder, [facility] recurrent, moderate Plan of Treatment: Future Appointments (+ 6 months) and Future Tests (+/- 45 days) The Plan of Treatment section includes future care activities for the patient from all [place] treatmentfaecu healthities. This section includes future appointments and future orders which are active, pending orscheduled.Future Appointments This section includes appointments that were scheduled to occur 6 months from the date of the Encounter, up to a maximum of 20 appointments. The data comes from all [place] treatment facilities. Appointment Date/Time Appointment Type Appointment Facili ty Name Oct 23, 2021 10:00 AM AMBULATORY - PSYCHIATRY [facility] [place] [facility] Oct 30, 2021 10:00 AM AMBULATORY - PSYCHIATRY [facility] [place] [facility] December 12, 2021 04:00 PM AMBULATORY - PSYCHIATRY [facility] [place] [facility] Dec 19, 2021 11:45 AM AMBULATORY - MEDICINE [facility] [place] [facility] Dec 19, 2021 02:30 PM AMBULATORY - PSYCHIATRY [facility] [place] [facility] Dec 20, 2021 04:00 PM AMBULATORY - PSYCHIATRY [facility] [place] [facility] Dec 26, 2021 04:00 PM AMBULATORY - PSYCHIATRY [facility] [place] [facility] Jan 09, 2022 04:00 PM AMBULATORY - PSYCHIATRY [facility] [place] [facility] Jan 23, 2022 02:30 PM AMBULATORY - PSYCHIATRY [facility] [place] [facility] Jan 30, 2022 08:00 AM AMBULATORY - MEDICINE [facility] [place] [facility] Jan 30, 2022 11:45 AM AMBULATORY - MEDICINE [facility] [place] [facility] Jan 30, 2022 01:00 PM AMBULATORY - MEDICINE [facility] [place] [facility] Feb 04, 2022 02:15 PM AMBULATORY - NONE [facility] [place] [place] [facility] Feb 06, 2022 04:00 PM AMBULATORY - PSYCHIATRY [facility] [place] [facility] Feb 07, 2022 01:00 PM AMBULATORY - MEDICINE [facility] [place] [place] [facility] Feb 10, 2022 01:15 PM AMBULATORY - MEDICINE [facility] [place] [place] [facility] Feb 10, 2022 01:45 PM [facility] Feb 12, 2022 09:00 AM AM[facility] Feb 14, 2022 12:00 PM [facility] Feb 25, 2022 01:00 PM AMBULATORY - PSYCHIATRY [facility] Social History: Smoking Status (Most current) and Tobacco Use (All prior to encounter date) This section includes the most current, and the historical, smoking and tobacco-related health factors from the [place] facility where the Encounter took place.Current Smoking Status This section includes the most current smoking, or tobacco-related health factor, from the [place] facility where the Encounter took place. Date/Time Current Smoking Status Comment Facility May 23, 2021 02:30 PM VA-TOBACCO NEVER USED [facility] Encounter Notes: All associated encounter notes This section contains the clinical notes associated to the Encounter. Date/Time Encounter Note(s) Provider Source Oct 18, 2021 09:15 MENTAL HEALTH NOTE: ANIVAL DEL ANGEL [facility] LOCAL TITLE: EMDR THERAPY NOTE [facility] STANDARD TITLE: MENTAL HEALTH NOTE DATE OF NOTE: OCT 18, 2021@09:15 ENTRY DATE: OCT 18, 2021@09:59:44 AUTHOR: ANIVAL DEL ANGEL EXP COSIGNER: URGENCY: STATUS: COMPLETED VISIT DURATION: 40 minutes ( arrived late due to traffic) DIAGNOSES: PTSD; MDD VETERANS STATEMENT OF GOALS/CONCERNS: [place] shared that he had a hard time for a few days after the EMDR session with intrusive memories, as well as intrusive thoughts and audible voices making negative self statements about his worth . He said he did manage to communicate with his what was going on and that was pos itive. He also tried his grounding/resourcing which a lso helped a bit. He acknowledged drinking wine and smoking mj to help him get t hrough an evening with his 's family during this time. He shared he was too overwhelmed to practi ce the mindfulness of emotion exercise he learned in the last session. SESSION FOCUS: PTSD/resourcing INTERVENTIONS: Psychotherapeutic Interventions: Assessment of sxs, s/i, well-being, and needs. Session review/bridging/agenda setting. Space to discuss how he responded to EMDR last s ession. Noted the increase in symptoms and difficulty lucia ging them. Identified the challenge to stay present with his emotions, as well a s his negative self-statements. Explored the latter. He identified that both the fact that he was in charge of the index trauma, as well as the failed relationships upon his return, have resulted in his feeling worthless. Discussed taking some time o n resourcing and affect tolerance before continuing to process the trauma further so that he can rem ain more grounded during processing. Discussed his childhood and the posi tive messages of love he received, particularly from his grand mother. He shared she when he got back from [facility]. Identified today that he has not grieved the loss of this primary caregiver in his life. Using eye movements/bilateral stimulation, facilitated con necting with his grandmother's love/care and how she would respond to him knowing how he felt. Reviewed homework of identifying the emotion, id entifying it in the body, and allowing it to pass as a wave. Practiced this in session with emotions he was feeling around recalling his grandmother ( grief and comfort ). ASSESSMENT: BRIEF ASSESSMENT OF MENTAL STATUS: 1. Appearance (grooming, attire, apparent age) within normal limits: Yes 2. Thought content was organized and goal direc christo: Yes 3. Speech was coherent and unimpaired: Yes 4. Affect was appropriate and unremarkable: Full range, anxiety present, tearful when recal ling his grandmother 5. Demeanor was calm, with no signs of agitatio n or restlessness: Yes - some fidgeting 6. Sleep was largely unimpaired and restful: Not asked 7. No evidence of psychosis (hallucinations or delusions): Yes - possible a/h secondary to PTSD and dissoc iation 8. Mood was normal: anxiety/depression present Other Observations: RISK ASSESSMENT: Endorsed passive s/i after last EMDR session bu t no active plan/intent PLAN FOR FOLLOW-UP: Return on 10/29/ ANIVAL DEL ANGEL SENIOR CIVIL ENGINEER CLINICAL REFRIGERATION TECH Signed: 10/18/2021 12:25
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
--- OUTSIDE RECORDS SUMMARY | 2022-04-18 10:05 | XMS_ITS ---
:1990 Author Organization Department [facility] rs Address [address] [place] [address] Support Name Relationship Address Phone TETE TRAN Unavailable 36 [facility] [place] [address] THOMAS MONTOYA Unavailable 6 [facility] [place] [address] Insurance Providers: All historical and current Section [...] Ojeda [facility] Aug 03, [id number] [phone] ROSA MARIA ChapoPR PATIENT BEE GIMENEZ [id number] STEPHANIE JOHNSON [facility] ORGANIZ E DEPT Selected Encounter This section includes the information on record at [facility] for the Encounter. Date/Time Encounter Type Encounter Reason Provider Source Description Oct 07, 2021 Outpatient TELEPHONE ICD-10-CM F33.1 WINSTON STUART 11:00 AM Encounter Major depressive YASH disorder, recurrent, moderate with Provider Comments: Moderately severe recurrent major depression (SCT [id number]) IHE Encounter Template Text not used by VA Assessments - Encounter Diagnoses This section includes the primary and secondary diagnoses documented for the Encounter. Date/Time Primary/Secondary Diagnosis Name Provider Source Diagnosis Oct 07, 2021 PRIMARY Major depressive W[place]ON STUART [place] [facility] 11:00 AM disorder, [facility] recurrent, moderate Oct 07, 2021 SECONDARY Post-traumatic WN[place]ON STUART [facility] WS TRN 11:00 AM stress disorder, YASH [facility] unspecified Plan of Treatment: Future Appointments (+ 6 months) and Future Tests (+/- 45 days) The Plan of Treatment section includes future care activities for the patient from all VA treatmentfacommunity healthities. This section includes future appointments and [...] AMBULATORY - PSYCHIATRY [facility] [place] [facility] Oct 09, 2021 10:00 AM AMBULATORY - PSYCHIATRY [facility] [place] [facility] Oct 15, 2021 02:30 PM AMBULATORY - NONE [place] [facility] [place] [facility] Oct 16, 2021 10:00 AM AMBULATORY - PSYCHIATRY [facility] [place] [facility] Oct 18, 2021 09:00 AM AMBULATORY - PSYCHIATRY [facility] [place] [facility] Oct 23, 2021 10:00 AM AMBULATORY - PSYCHIATRY [facility] [place] [facility] Oct 30, 2021 10:00 AM AMBULATORY - PSYCHIATRY [facility] [place] [facility] December 12, 2021 04:00 PM AMBULATORY - PSYCHIATRY [facility] [place] [facility] Dec 19, 2021 11:45 AM AMBULATORY - MEDICINE [facility] [place] [facility] Dec 19, 2021 02:30 PM AMBULATORY - PSYCHIATRY [facility] [place] [facility] Dec 20, 2021 04:00 PM AMBULATORY - PSYCHIATRY [facility] [place] [facility] Dec 26, 2021 04:00 PM AMBULATORY - PSYCHIATRY [facility] [place] [facility] Jan 09, 2022 04:00 PM AMBULATORY - PSYCHIATRY [facility] [place] [facility] Jan 23, 2022 02:30 PM AMBULATORY - PSYCHIATRY [facility] [place] [facility] Jan 30, 2022 08:00 AM AMBULATORY - MEDICINE [facility] [place] [facility] Jan 30, 2022 11:45 AM AMBULATORY - MEDICINE [facility] [place] [facility] Jan 30, 2022 01:00 PM AMBULATORY [facility] Feb 04, 2022 02:15 PM AMBULATORY - NONE [place] [facility] [facility] Feb 06, 2022 04:00 PM [facility]UL[facility] Feb 07, 2022 01:00 PM AMBULATORY - MEDICINE [place] [facility] M [facility] Social History: Smoking Status (Most current) and Tobacco Use (All prior to encounter date) This section includes the most current, and the historical, smoking and tobacco-related health factors from the [place] facility where the Encounter took place.Current Smoking Status This section includes the most current smoking, or tobacco-related health factor, from the [place] facility where the Encounter took place. Date/Time Current Smoking Status Comment Facility May 23, 2021 02:30 PM VA-TOBACCO NEVER USED [place] C NTRL WSTRN [facility] Encounter Notes: All associated encounter notes This section contains the clinical notes associated to the Encounter. Date/Time Encounter Note(s) Provider Source Oct 07, 2021 11:09 TELEPHONE ENCOUNTER NOTE: DENISE STUART CNTRL WSTRN LOCAL TITLE: TELEHEALTH TELEPHONE NOTE [facility] STANDARD TITLE: TELEPHONE ENCOUNTER NOTE DATE OF NOTE: OCT 07, 2021@11:09 ENTRY DATE: OCT 07, 2021@11:10 AUTHOR: DENISE STUART EXP COSIGNER: URGENCY: STATUS: COMPLETED Time Spent: 8 minutes Patient consents to telehealth telephone visit t esteban for mental health follow up. MENTAL HEALTH NOTE: GEORGE MONTOYA CHAPITO, a 31 year old WHITE MALE had telehealth telephone visit today for mental health follow up. Two forms of identification was used. DIAGNOSES AND PROBLEMS TREATED THIS VISIT: TBI, PTSD, MDD, Recurrent, Moderate to Severe ru le out with psychotic features, Sleep Deprivation, Cannabis Use SUBJECTIVE: George says he is doing better. He was having a harder time the last time we talked. He has started in a group w valeria Perea at the [place] and really likes this group. He feels the higher dos e of wellbutrin has been helpful as well for his mood and anxiety. He denies any side effects from it or from his other medications. He says the ativan 1 mg dose has been better than the 0.5 mg and he continues to use it ju diciously (only has used three tablets this month). George says th at school continues to cause some increased anxiety for him, but he feels he is managing it well. He denies any recent suicidal thinking and feels he is in a good place right n ow. SUBSTANCE ABUSE: Caffeine: denies Tobacco: denies Cocaine: [...] MOUTH ON CE DAILY ACTIVE NEEDED FOR EXTREME ANXIETY. TEMPORARY DOSE INCREASE. 6) PRAZOSIN HCL 2MG CAP TAKE FOUR [...] cooperative. Speech: Normal rate and volume. Mood/Affect: better. Affect: euthymic. Thought Production/Content: Logical, sequential & relevant to discussion. Perceptual Disturbances: None. Attention, concentration and memory based on answers to session questions: Good. Insight/Judgment: Both good. SI/HI: Neither elicited. Ability to Provide informed consent: Yes. ASSESSMENT:31 year old WHITE MALE, [facility] for mental health follow up. TREATMENT PLAN/ DISCUSSION/ RATIONALE: 1.::: Medication management: Reviewed medication s today with George. He conitnues on the higher dose of wellbutrin SR 15 0 mg BID from last visit. He also continues on Lexapro 20 mg daily, Neurontin 400 mg QID, Prazosin 8 mg qHS, Trazodone 150 mg qHS and ativan 1 mg daily prn anxiety (which he doesn't use daily). George reports overall a good mood lately. No changes to his medications today. He started a new group with Xander Perea and is really enjoying this. George denies any recent suicida l ideation. He continues in therapy with Ramya Hernandez as well. Next Visit: in 1 month. Patient is aware of how to access [facility] in [facility] during weekdays for immediate mental health [...] or call 911 for psychiatric emergencies, inc alia SI/HI. ::: SAFETY PLAN: Pt was educated about emergency services available at this facility e.g., ER) and in the community (i ncluding Crisis Line, 911, [place] National Suicide Prevention Lifeline: 4-750- 506-VFMT). Patient is instructed to contact me should [...] provider. /ivelisse/ DENISE STUART MD PSYCHIATRIST Signed: 10/07/2021 11:27
--- OUTSIDE RECORDS SUMMARY | 2022-04-18 10:05 | XMS_ITS | Encounter Summary ---
:1990 Author Organization Department of [facility] rs Address [address] [place] [address] Support Name Relationship Address Phone ELISA TRAN Unavailable 36 [facility] [place] [address] THOMAS MONTOYA Unavailable 6 [facility] [place] [address] Insurance Providers: All historical and current Section [...] Telephone Name to Policy Number Ojeda [facility] Aug 03, [id number] [phone] ALIADarlyn CowanAL [facility]IENT [facility] [id number] STEPHANIE JOHNSON [facility] ORGANIZ E DEPT Selected Encounter This section includes the information on record at [place] for the Encounter. Date/Time Encounter Type Encounter Reason Provider Source Description Oct 16, 2021 GROUP PSYCHOTHERAPY MENTAL HEALTH ICD-10-CM F43.10 DAVID PEREA 10:00 AM CLINIC-GROUP Post-traumatic stress disorder, unspecified with Provider Comments: Post-traumatic stress disorder, unspecified (ICD-10-CM F43.10) IHE Encounter Template Text not used by VA Assessments - Encounter Diagnoses This section includes the primary and secondary diagnoses documented for the Encounter. Date/Time Primary/Secondary Diagnosis Name Provider Source Diagnosis Oct 16, 2021 PRIMARY Post-traumatic DAVID PEREA [place] [facility] [place] 11:36 AM stress disorder, [place] [facility] unspecified Plan of Treatment: Future Appointments (+ 6 months) and Future Tests (+/- 45 days) The Plan of Treatment section includes future care activities for the patient from all [facility]. This section includes future appointments and future orders which are active, pending orscheduled.Future Appointments This section includes appointments that were scheduled to occur 6 months from the date of the Encounter, up to a maximum of 20 appointments. The data comes from all [place] treatment facilities. Appointment Date/Time Appointment Type Appointment Facili ty Name Oct 18, 2021 09:00 AM AMBULATORY - PSYCHIATRY [place] [facility] [place] [facility] Oct 23, 2021 10:00 AM AMBULATORY - PSYCHIATRY [facility] [place] [facility] Oct 30, 2021 10:00 AM AMBULATORY - PSYCHIATRY [facility] [place] [facility] December 12, 2021 04:00 PM AMBULATORY - PSYCHIATRY [facility] [place] [facility] Dec 19, 2021 11:45 AM AMBULATORY - MEDICINE [place] [facility] [place] [facility] Dec 19, 2021 02:30 PM AMBULATORY - PSYCHIATRY [facility] [place] [facility] Dec 20, 2021 04:00 PM AMBULATORY - PSYCHIATRY [facility] [place] [facility] Dec 26, 2021 04:00 PM AMBULATORY - PSYCHIATRY [facility] [place] [facility] Jan 09, 2022 04:00 PM AMBULATORY - PSYCHIATRY [facility] [place] [facility] Jan 23, 2022 02:30 PM AMBULATORY - PSYCHIATRY [facility] [place] [facility] Jan 30, 2022 08:00 AM AMBULATORY - MEDICINE [place] [facility] [place] [facility] Jan 30, 2022 11:45 AM AMBULATORY - MEDICINE [place] [facility] [place] [facility] Jan 30, 2022 01:00 PM AMBULATORY - MEDICINE [place] [facility] [place] [facility] Feb 04, 2022 02:15 PM AMBULATORY - NONE [place] [facility] [place] [facility] Feb 06, 2022 04:00 PM AMBULATORY - PSYCHIATRY [facility] [place] [facility] Feb 07, 2022 01:00 PM AMBULATORY - MEDICINE [place] [facility] [place] [facility] Feb 10, 2022 01:15 PM AMBULATORY - MEDICINE [place] [facility] [place] [facility] Feb 10, 2022 01:45 PM [facility] Feb 12, 2022 09:00 AM AMBULATORY - PSYCHIATRY [facility] Feb 14, 2022 12:00 PM AMBULATORY - PSYCHIATRY [facility] Social History: Smoking Status (Most current) [...] 23, 2021 02:30 PM VA-TOBACCO NEVER USED [facility] Encounter Notes: All associated encounter notes This section contains the clinical notes associated to the Encounter. Date/Time Encounter Note(s) Provider Source Oct 16, 2021 11:27 AM PSYCHIATRY GROUP COUNSELING NOTE: ROSANA PEREA [facility] LOCAL TITLE: PSYCHOLOGY GROUP NOTE [facility] STANDARD TITLE: PSYCHIATRY GROUP COUNSELING NOTE DATE OF NOTE: OCT 16, 2021@11:27 ENTRY DATE: OCT 16, 2021@11:27:29 AUTHOR: DAVID PEREA EXP COSIGNER: URGENCY: STATUS: COMPLETED SESSION DURATION: 55 minutes PRESENTING PROBLEM(S): Veterans presented via VV C to today's OIF/OEF/OND/[employer] focused process group. Faci litator of [...] plan, or intent during to day's group. 8 Members attended todays group. Two new members joined today so introductions were completed initially. Some ian e was also spent in todays group processing the news that was shared by one member during the last group about going to help out another country in conflict. Members shared their reactions to last group and how they think of it for their own life circumstances. Another topic tended to revolve a round the differences between and civilian life as we ll as the factors involved in deciding whether or not to go back to a arena. Vet was quiet but attentive and occasionally rel ated to other members. DSM-5 DIAGNOSIS: PTSD, Chronic VA Video Connect (VVC) Standard Documentation VVC Clinician Resources Only: E911 (Emergency Call Relay Center): [phone] [employer] Crisis Line - ( 9-510-848-TALK) press #1. SUSIE Suicide Coordinator [phone], Ext. [phone]; Back-up Ext. [phone] Bakery Deliverer of the Day(AOD), Henry RICHARDS [phone], Ext. [phone] Introduction: Visit is being conducted by [employer]. Nordman identified with 2 identifiers: [X] Full Name [X] Date of [ ] VA ID Card Emergency Plan: Nordman confirmed and/or provided the following information in case of emergency or technology failure. PATIENT PHONE - PHONE NUMBER [CELLULAR] - Is patient phone number correct, if not, enter b elow: 's phone number: GEORGE MONTOYA [address], [place], [address] 's present location and address for appoi ntment: Same as above 's emergency contact name and phone numbe r: Elisa Montoya () [phone] Nordman reported that location is private and sa fe: Yes Informed Consent: Nordman informed of the risks and benefits of Te [facility] video care. has the right to refuse video services. If refuses video visit, a [id number]-ps-okyy visit will be scheduled. verbalized consent for this video visit: Yes provided consent for any other persons p resent for visit: N/A If yes, who and relationship to patient: Secure visit: Visit was locked for security and privacy:Yes /ivelisse/ David Perea PsyD Staff Psychologist Signed: 10/16/2021 11:44
--- OUTSIDE RECORDS SUMMARY | 2022-04-18 10:05 | XMS_ITS ---
:1990 Author Organization [address] [facility] rs Address [address] [place] [address] Support Name Relationship Address Phone TETE TRAN Unavailable 36 [facility] [phone] [place] [address] THOMAS MONTOYA Unavailable 6 [facility] [place] [address] Insurance Providers: All historical and current Section Date Range: From patient's date of to the date document was created.This section includes the names of all active insurance providers for the patient. Insurance Type of Plan Start of End of Group Member Insurance Policy P atient's Provider Coverage Name Policy Policy Number ID Provider's Ojeda's Relationship Coverage Coverage Telephone Name to Policy Number Ojeda [facility] Aug 03, [id number] [phone] ROSA MARIA ChapoNE [facility] 2019 [id number] STEPHANIE JOHNSON [facility] E DEPT Selected Encounter This section includes the information on record at [place] for the Encounter. Date/Time Encounter Type Encounter Reason Provider Source Description Oct 15, 2021 INTRAORAL DENTAL ICD-10-CM K08.9 ALEX SELF 02:30 PM PERIAPICAL FIRST Disorder of teeth CENT and supporting structures, unspecified with Provider Comments: Disorder of teeth and supporting structures, unspecified IHE Encounter Template Text not used by [place] Assessments - Encounter Diagnoses This section includes the primary and secondary diagnoses documented for the Encounter. Date/Time Primary/Secondary Diagnosis Name Provider Source Diagnosis Oct 15, 2021 PRIMARY Disorder of teeth [facility]IN[facility]:19 PM and supporting ENT [place] [facility] structures, unspecified Plan of Treatment: Future Appointments (+ [...] Appointment Type Appointment Facili ty Name Oct 16, 2021 10:00 AM AMBULATORY - PSYCHIATRY [facility] [place] [facility] Oct 18, 2021 09:00 AM AMBULATORY - PSYCHIATRY [facility] [place] [facility] Oct 23, 2021 10:00 AM AMBULATORY - PSYCHIATRY [facility] [place] [facility] Oct 30, 2021 10:00 AM AMBULATORY - PSYCHIATRY [facility] [place] [facility] December 12, 2021 04:00 PM AMBULATORY - PSYCHIATRY [facility] [place] [facility] Dec 19, 2021 11:45 AM AMBULATORY - MEDICINE [place] [facility] [facility] Dec 19, 2021 02:30 PM AMBULATORY - PSYCHIATRY [facility] [place] [facility] Dec 20, 2021 04:00 PM AMBULATORY - PSYCHIATRY [facility] [place] [facility] Dec 26, 2021 04:00 PM AMBULATORY - PSYCHIATRY [facility] [place] [facility] Jan 09, 2022 04:00 PM AMBULATORY - PSYCHIATRY [facility] [place] [facility] Jan 23, 2022 02:30 PM AMBULATORY - PSYCHIATRY [facility] [place] [facility] Jan 30, 2022 08:00 AM AMBULATORY - MEDICINE [place] [facility] [facility] Jan 30, 2022 11:45 AM AMBULATORY - MEDICINE [place] [facility] [facility] Jan 30, 2022 01:00 PM AMBULATORY - MEDICINE [place] [facility] [facility] Feb 04, 2022 02:15 PM AMBULATORY - NONE [place] [facility] [place] [facility] Feb 06, 2022 04:00 PM AMBULATORY - PSYCHIATRY [facility] [place] [facility] Feb 07, 2022 01:00 PM AMBULATORY - MEDICINE [place] [facility] [facility] Feb 10, 2022 01:15 PM AMBULATORY - MEDICINE [place] [facility] [facility] Feb 10, 2022 01:45 PM [facility] [place] [facility] Feb 12, 2022 09:00 AM [facility] Social History: Smoking Status (Most current) and Tobacco Use (All prior to encounter date) This section includes the most current, and the historical, smoking and tobacco-related health factors from the [place] facility where the Encounter took place.Current Smoking Status This section includes the most current smoking, or tobacco-related health factor, from the [place] facility where the Encounter took place. Date/Time Current Smoking Status Comment Facility May 23, 2021 02:30 PM [facility]CO [facility] Encounter Notes: All associated encounter notes This section contains the clinical notes associated to the Encounter. Date/Time Encounter Note(s) Provider Source Oct 15, 2021 03:19 DENTISTRY CONSULT: NATALIIA SELF [facility] LOCAL TITLE: [facility] STANDARD TITLE: DENTISTRY CONSULT DATE OF NOTE: OCT 15, 2021@15:19 ENTRY DATE: OCT 15, 2021@15:19:22 AUTHOR: NATALIIA SELF EXP COSIGNER: URGENCY: STATUS: COMPLETED PA of 29 for Limited Exam /es/ NATALIIA SELF DMD DENTIST Signed: 10/16/2021 11:14 Oct 15, 2021 03:15 DENTISTRY NOTE: NATALIIA SELF [facility] PM LOCAL TITLE: DENTAL NOTE [facility] STANDARD TITLE: DENTISTRY NOTE DATE OF NOTE: OCT 15, 2021@15:15 ENTRY DATE: OCT 15, 2021@15:19 AUTHOR: NATALIIA SELF EXP COSIGNER: URGENCY: STATUS: COMPLETED Patient Name: GEORGE MONTOYA, : [birth year], Age: 31 Visit: S: Oct 15, 2021@14:30 CWM/NO/DENTAL/DMD2 PM. Primary PCE Diagnosis: K08.9 (DISORDER OF TEETH AND SUPPORTING STRUCTURES, UNSPECIFIED). Dental Category: 15-OPC, Class IV. Treatment St atus: Active. Completed Care: (D0140) LIMIT ORAL EVAL PROBLM FOCUS. DX: K08.9 Disorder of Teeth and Supporting Stru ctures, unspecified (D0220) INTRAORAL PERIAPICAL FIRST. Tooth: 29. 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 BUPROPION HCL 150MG 12HR SA TAB - (ACTIVE) ESCITALOPRAM OXALATE 20MG TAB - (ACTIVE) PRAZOSIN HCL 2MG CAP - (ACTIVE) TRAZODONE HCL 100MG TAB - (ACTIVE) GABAPENTIN 400MG CAP - (ACTIVE) SODIUM FLUORIDE 1.1% TOOTHPASTE - (ACTIVE) CARBOXYMETHYLCELLULOSE 0.5% OPH SOLN - (ACTIVE) LORAZEPAM 1MG TAB - (ACTIVE) Oral Examination: 30-M composite appears chipped/defective; conta ct is open & food is impinging. No Significant Tooth Mobility Noted Assessment/Plan: ## Gave pt guidance on cleansing the area with f loss, soft picks, water pik, & fluoride. Recommending changing the [place] po rtion of the filling #30. ## No contraindications for planned procedure(s). Planned Procedures: Unsequenced (D0150) COMPREHENSVE ORAL EVALUATION: . DX: (). Reviewed risks/benefits/alternatives associated with the proposed treatment plan. Patient agrees to treatment shamika n as discussed. Disposition: Next visit: Comp Exam 11/19/2021 Patient to return to dental clinic for continui ng care. - - - - - - - - - - - - - - - - - - - - - - - - - - - - - - /ivelisse/ NATALIIA SELF DMD DENTIST Signed: 10/15/2021 15:19
--- OUTSIDE RECORDS SUMMARY | 2022-04-18 10:06 | XMS_ITS | Encounter Summary ---
:1990 Author Organization Department [facility] rs Address [address] [place] [address] Support Name Relationship Address Phone TETE TRAN Unavailable [address] [place] [address] THOMAS MONTOYA Unavailable [address] [place] [address] Insurance Providers: All historical and current Section [...] Name to Policy Number Ojeda [facility] Aug 03, [id number] [phone] ALIAROSINA Mane PATIENT BEE GIMENEZ [id number] STEPHANIE JOHNSON [facility] ORGANIZ E DEPT Selected Encounter This section includes the information on record at [place] for the Encounter. Date/Time Encounter Type Encounter Description Reason Provider Source Oct 02, 2021 12:00 Outpatient Encounter COMMUNITY CARE AM CONSULT IHE Encounter Template Text not used by [...] Appointment Type Appointment Facili ty Name Oct 04, 2021 09:00 AM AMBULATORY - PSYCHIATRY [facility] Oct 07, 2021 11:00 AM AM[facility]UL[facility]ORY [facility] [place] [facility] Oct 08, 2021 09:00 AM AMBULATORY - [facility]IATRY [facility] [place] [facility] Oct 09, 2021 10:00 AM AMBULATORY - PS[facility]CHIATRY [facility] [place] [facility] Oct 15, 2021 02:30 PM AMBULATORY - NONE [facility] [place] [facility] Oct 16, 2021 10:00 AM AMBULATORY - PS[facility]CHIATRY [facility] [place] [facility] Oct 18, 2021 09:00 AM AMBULATORY - PS[facility]CHIATRY [facility] [place] [facility] Oct 23, 2021 10:00 AM AMBULATORY - PS[facility]CHIATRY [facility] [place] [facility] Oct 30, 2021 10:00 AM AMBULATORY - PS[facility]CHIATRY [facility] [place] [facility] December 12, 2021 04:00 PM AMBULATORY - PS[facility]CHIATRY [facility] [place] [facility] Dec 19, 2021 11:45 AM AMBULATORY - MEDICINE [facility] [place] [facility] Dec 19, 2021 02:30 PM AMBULATORY - PS[facility]CHIATRY [facility] [place] [facility] Dec 20, 2021 04:00 PM AMBULATORY - PS[facility]CHIATRY [facility] [place] [facility] Dec 26, 2021 04:00 PM AMBULATORY - PS[facility]CHIATRY [facility] [place] [facility] Jan 09, 2022 04:00 PM AMBULATORY - PS[facility]CHIATRY [facility] [place] [facility] Jan 23, 2022 02:30 PM AMBULATORY - PS[facility]CHIATRY [facility] [place] [facility] Jan 30, 2022 08:00 AM AMBULATORY - MEDICINE [facility] [place] [facility] Jan 30, 2022 11:45 AM AMBULATORY - MEDICINE [facility] [place] [facility] Jan 30, 2022 01:00 PM AMBULATORY - MEDICINE [facility] [place] [facility] Feb 04, 2022 02:15 PM AMBULATORY - NONE [facility] [place] [facility] Social History: Smoking Status (Most current) [...] VA-TOBACCO NEVER USED [facility] Encounter Notes: All associated encounter notes This section contains the clinical notes associated to the Encounter. Date/Time Encounter Note(s) Provider Source Oct 02, 2021 12:00 AM NONVA CONSULT: [place] [facility] LOCAL TITLE: COMMUNITY CARE-CONSULT RESULT NOTE [facility] STANDARD TITLE: NONVA CONSULT DATE OF NOTE: OCT 02, 2021 ENTRY DATE: OCT 04 022@11:02:42 AUTHOR: ANNETTE RAMOS EXP COSIGNER: URGENCY: STATUS: COMPLETED VistA Imaging - Scanned Document SCANNED DOCUMENT SIGNATURE NOT REQUIRED Electronically Filed: 10/04/2021 by: ANNETTE RAMOS HELP DESK AGENT
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
--- OUTSIDE RECORDS SUMMARY | 2022-04-18 10:06 | XMS_ITS ---
:1990 Author Organization Department of [facility] rs Address [address] [place] [address] Support Name Relationship Address Phone ELISA TRAN Unavailable [address] [facility] [phone] 3 [place] [address] THOMAS MONTOYA Unavailable [address] [facility] [place] [address] Insurance Providers: All historical and current Section [...] Telephone Name to Policy Number Ojeda [facility] Aug 03, [id number] [phone] ROSA MARIA ChapoOH [facility] [id number] STEPHANIE JOHNSON [facility] ORGANIZ E DEPT Selected Encounter This section includes the information [place] for the Encounter. Date/Time Encounter Type Encounter Reason Provider Source Description Oct 02, 2021 GROUP PSYCHOTHERAPY MENTAL HEALTH ICD-10-CM F43.10 DAVID PEREA 10:00 AM CLINIC-GROUP Post-traumatic stress disorder, unspecified with Provider Comments: Post-traumatic stress disorder, unspecified (ICD-10-CM F43.10) IHE Encounter Template Text not used by VA Assessments - Encounter Diagnoses This section includes the primary and secondary diagnoses documented for the Encounter. Date/Time Primary/Secondary Diagnosis Name Provider Source Diagnosis Oct 02, 2021 PRIMARY Post-traumatic DAVID PEREA [facility] N 11:25 AM stress disorder, [place] [facility] unspecified Plan of Treatment: Future Appointments (+ 6 months) and Future Tests (+/- 45 days) The Plan of Treatment section includes future care activities for the patient [facility]. This section includes future appointments and [...] AMBULATORY - [facility]CHIATRY [facility] [place] [facility] Oct 07, 2021 11:00 AM AMBULATORY - PS[facility]CHIATRY [facility] [place] [facility] Oct 08, 2021 09:00 AM AMBULATORY - PSYCHIATRY [facility] [place] [facility] Oct 09, 2021 10:00 AM AMBULATORY - PS[facility]CHIATRY [facility] [place] [facility] Oct 15, 2021 02:30 PM AMBULATORY - NONE [facility] [place] [facility] Oct 16, 2021 10:00 AM AMBULATORY - PS[facility]CHIATRY [facility] [place] [facility] Oct 18, 2021 09:00 AM AMBULATORY - PSYCHIATRY [facility] [place] [facility] Oct 23, 2021 10:00 AM AMBULATORY - PS[facility]CHIATRY [facility] [place] [facility] Oct 30, 2021 10:00 AM AMBULATORY - PSYCHIATRY [facility] [place] [facility] December 12, 2021 04:00 PM AMBULATORY - PSYCHIATRY [facility] [place] [facility] Dec 19, 2021 11:45 AM AMBULATORY - MEDICINE [facility] [place] [facility] Dec 19, 2021 02:30 PM AMBULATORY - PSYCHIATRY [facility] [place] [facility] Dec 20, 2021 04:00 PM AMBULATORY - PSYCHIATRY [facility] [place] [facility] Dec 26, 2021 04:00 PM AMBULATORY - PSYCHIATRY [facility] [place] [facility] Jan 09, 2022 04:00 PM AMBULATORY - PSYCHIATRY [facility] [place] [facility] Jan 23, 2022 02:30 PM AMBULATORY - PSYCHIATRY [facility] [place] [facility] Jan 30, 2022 08:00 AM AMBULATORY - MEDICINE [facility] [place] [facility] Jan 30, 2022 11:45 AM AMBULATORY - MEDICINE [facility] [place] Jan 30, 2022 01:00 PM [facility] Feb 04, 2022 02:15 PM [facility] NONE [facility] Social History: Smoking Status (Most current) [...] 23, 2021 02:30 PM VA-TOBACCO NEVER USED [facility] Encounter Notes: All associated encounter notes This section contains the clinical notes associated to the Encounter. Date/Time Encounter Note(s) Provider Source Oct 02, 2021 11:16 AM PSYCHIATRY GROUP COUNSELING NOTE: ROSANA PEREA [facility] LOCAL TITLE: PSYCHOLOGY GROUP NOTE [facility] STANDARD TITLE: PSYCHIATRY GROUP COUNSELING NOTE DATE OF NOTE: OCT 02, 2021@11:16 ENTRY DATE: OCT 02, 2021@11:16:52 AUTHOR: DAVID PEREA EXP COSIGNER: URGENCY: STATUS: COMPLETED PSYCHOLOGY GROUP NOTE Has ADDENDA SESSION DURATION: 55 minutes PRESENTING PROBLEM(S): Veterans presented via VV C to today's OIF/OEF/OND/[place] War focused process group. Faci litator of [...] day's group. 9 Members attended todays group. Much of todays group was focused on review of the group telehealth agreement, int roduction of members to the new group member, and the news about the [facility] possibly closing. Members shared their perspecti ves on this. Additionally, we focused on fear of change and h ow hypervigilance can pull people out of the present moment, some times causing them to miss experiences with their family. presented for his fi rst group today. He was quiet initially, but later shared more about his thoughts of hyperv igilance and how it impacts him as a father. He also disclosed his anxiety with s haring in group as well as the reward he experienced after doing so. DSM-5 DIAGNOSIS: PTSD, Chronic [facility] ([facility]) Standard Documentation [facility] Clinician Resources Only: E911 (Emergency Call Relay Center): [phone] [place] [employer] Crisis Line - ( [phone]) press #1. SUSIE Suicide Coordinator [phone], Ext. [phone]; Back-up Ext. [phone] Supervisor Riveting of the Day(AOD), Henry RICHARDS [phone], Ext. [phone] Introduction: Visit is being conducted by [place] [facility]. [place] identified with 2 identifiers: [X] Full Name [X] Date of [ ] VA ID Card Emergency Plan: confirmed and/or provided the following information in case of emergency or technology failure. PATIENT PHONE - PHONE NUMBER [CELLULAR] - Is patient phone number correct, if not, enter b elow: 's phone number: GEORGE URIARTE ALIAYURIDIA [address] [place], [place], [address] [place]'s present location and address for appoi ntment: Same as above [place]'s emergency contact name and phone numbe r: Elisa Montoya () [phone] reported that location is private and sa fe: Yes Informed Consent: informed of the risks and benefits of Te lehealth video care. [place] has the right to refuse video services. If refuses video visit, a joqp-ay-nvfp visit will be scheduled. [place] verbalized consent for this video visit: Yes provided consent for any other persons p resent for visit: N/A If yes, who and relationship to patient: Secure visit: Visit was locked for security and privacy:Yes /es/ David Perea PsyD Staff Psychologist Signed: 10/02/2021 11:32 10/02/2021 ADDENDUM STATUS: COMPLETED Member was shown a telehealth group agreement an d agreed to the terms after reading. Group Telehealth Agreement 1. Privacy and Confidentiality During the visit, I will be in a quiet, private location where the confidential informat ion of group participants cannot be seen or heard by others. I agree to no t share the visit link with anyone. The laws protecting the confidentiality of my medical information also apply to telehealth, including group treatm ent conducted over video telehealth. The [place] has instituted procedures and policies to protect my privacy and confidentiality. The group facilitat or will lock the virtual medicalroom to prevent unauthorized persons from entering the visit. Everything said and done in group is confidentia l. I will protect the confidentiality of all group members by not juwan ing their names or what is said and done in the group. If I violate this co nfidentiality, I will be removed from the group. The group desk top publisher estefany lr disclose confidential information without my consent where mandated or permitted by law (e.g., to protect me or others from harm). If a group memb er has a medical or mental health emergency, the group desk top publisher may disc onnect others from the visit to ensure privacy and to address the emergency. 2. Participation Participation in this group is voluntary, and I have the right to withdraw from the group at any time . Withdrawing from group would not affect my right to future care or risk the loss or withdrawal of any VA benefits to which I am otherwise entitled . I will participate in the group according to the expectations outlined by the group desk top publisher. For video telehealth therapy groups, cameras will re main on during the entire group unless the group desk top publisher states otherw ise. If I am asked questions or asked to participate in an activity that make s me feel uncomfortable, I can decline, and I will not pressure other group members to participate. If I or the group desk top publisher have concerns about my meeting group expectations or participating in any aspect of the group, a disc ussion will occur to determine next steps, including other treatment options. 3. Risks and Consequences The [place] does not record telehealth visits, including group telehealth visits, without prior approval. I will not audio- or video-record or photograph any portion of the group visit. While this visit will not be audio- or video-recorded or ph otographed by the [place], there is a risk that another group member could audio- or video-record or photograph the visit and share it without knowle dge or approval from [place] or other group members. If it is known that any ed up member has audio- or video-recorded or photographed any portion of th e visit, then he/she will be removed from group for violating confidentiality ; relevant information will be shared with group members. He/she will then b e referred for prosecution to the full extent of federal and local laws includ ing applicable laws in the locations of the group desk top publisher and all group members. 4. Behavior I will do my part to make the group a safe place by being respectful, supportive, and providing helpful fe edback. I will avoid language that stereotypes or is insulting. I will be cons iderate when others are talking, give others an equal chance to speak, a nd will not engage inside conversations. Violence, threats, and intimidati on will not be tolerated. Gossip and grudges can be very destructive. I ag ree that if I have something to say to another group member, I will say it to the member directly and respectfully rather than talk about him or her w ith others. I agree that I will not engage in a group video session from a moving vehicle and understand that doing so may result in the group facilitato r disconnecting me from the session. If the group desk top publisher believes that I am impaired by alcohol or substances, using substances (including tobacco, etc.), or engaging in behavior that disrupts the group, I may be asked to leave and/or be disconnected from the group. The group facilitat or will have a follow-up discussionwith me to determine any necessary lauren nges to my treatment plan. I have read the agreement for group visits and agr ee to follow it. The group desk top publisher will note in my medical re cord that I have received, read, and agreed to these expectations. *In deve loping this consent form, it was necessary to use several technical words; pl ease ask for an explanation of any that you do not understand. /ivelisse/ David Perea PsyD Staff Psychologist Signed: 10/02/2021 11:39
--- OUTSIDE RECORDS SUMMARY | 2022-04-18 10:07 | XMS_ITS | Encounter Summary ---
:1990 Author Organization Department of [facility] rs Address [address] [place] [address] Support Name Relationship Address Phone TETE TRAN Unavailable [address] [place] [address] THOMAS MONTOYA Unavailable 6 [facility] [place] [address] Insurance Providers: All historical and current Section [...] Telephone Name to Policy Number Ojeda [facility] Aug 03, [id number] [phone] ALIAROSINA Mane PATIENT BEE GIMENEZ 2019 [id number] STEPHANIE JOHNSON [facility] [address] ORGANIZ E DEPT Selected Encounter This section includes the information on record at [facility] for the Encounter. Date/Time Encounter Type Encounter Reason Provider Source Description Sep 25, 2021 PSYTX W PT 30 MENTAL HEALTH ICD-10-CM F43.10 MER,CHRI ST 09:00 AM MINUTES CLINIC - IND Post-traumatic IE stress disorder, unspecified with Provider Comments: Posttraumatic stress disorder ([facility] [id number]) IHE Encounter Template Text not used by VA Assessments - Encounter Diagnoses This section includes the primary and secondary diagnoses documented for the Encounter. Date/Time Primary/Secondary Diagnosis Name Provider Source Diagnosis Sep 25, 2021 PRIMARY Post-traumatic MER,VERO [facility] WS TRN 01:17 PM stress disorder, [facility] [place] [facility] unspecified Sep 25, 2021 SECONDARY Major depressive MER,VERO [facility] W[facility]N 01:17 PM disorder, [facility] [place] [facility] recurrent, moderate [...] Date/Time Appointment Type Appointment Facili ty Name Sep 26, 2021 04:00 PM AMBULATORY - PS[facility]IATRY [facility] [place] [facility] Oct 01, 2021 07:00 AM AMBULATORY - PS[facility]CHIATRY [facility] [place] [facility] Oct 02, 2021 10:00 AM AMBULATORY - PS[facility]CHIATRY [facility] [place] [facility] Oct 04, 2021 09:00 AM AMBULATORY - PSYCHIATRY [facility] [place] [facility] Oct 07, 2021 11:00 AM AMBULATORY - PSYCHIATRY [facility] [place] [facility] Oct 08, 2021 09:00 AM AMBULATORY - PSYCHIATRY [facility] [place] [facility] Oct 09, 2021 10:00 AM AMBULATORY - PS[facility]CHIATRY [facility] [place] [facility] Oct 15, 2021 02:30 PM AMBULATORY - NONE [facility] [place] [facility] Oct 16, 2021 10:00 AM AMBULATORY - PSYCHIATRY [facility] [place] [facility] Oct 18, 2021 09:00 AM AMBULATORY - PSYCHIATRY [facility] [place] [facility] Oct 23, 2021 10:00 AM AMBULATORY - PSYCHIATRY [facility] [place] [facility] Oct 30, 2021 10:00 AM AMBULATORY - PSYCHIATRY [facility] [place] [facility] December 12, 2021 04:00 PM AMBULATORY - PSYCHIATRY [facility] [place] [facility] Dec 19, 2021 11:45 AM AMBULATORY - MEDICINE [facility] [place] [facility] Dec 19, 2021 02:30 PM AMBULATORY - PSYCHIATRY [facility] [place] [facility] Dec 20, 2021 04:00 PM AMBULATORY - PSYCHIATRY [facility] [place] [facility] Dec 26, 2021 04:00 PM AMBULATORY - PSYCHIATRY [facility] [place] [facility] Jan 09, 2022 04:00 PM AMBULATORY - PSYCHIATRY [facility] [place] [facility] Jan 23, 2022 02:30 PM AMBULATORY - PS[place]CHIATRY [place] [place] [facility] Jan 30, 2022 08:00 AM [facility] Social History: Smoking Status (Most current) and Tobacco Use (All prior to encounter date) This section includes the most current, and the historical, smoking and tobacco-related health factors from the [place] facility where the Encounter took place.Current Smoking Status This section includes the most current smoking, or tobacco-related health factor, from the [place] facility where the Encounter took place. Date/Time Current Smoking Status Comment Facility May 23, 2021 02:30 PM [facility]-TOBACCO [facility] Encounter Notes: All associated encounter notes This section contains the clinical notes associated to the Encounter. Date/Time Encounter Note(s) Provider Source Sep 25, 2021 09:15 TELEHEALTH NOTE: ANIVAL DEL ANGEL [facility] TROY MORRISSEY AM LOCAL TITLE: [place] [facility] SOCIAL WORK NOTE [facility] STANDARD TITLE: TELEHEALTH NOTE DATE OF NOTE: SEP 25, 2021@09:15 ENTRY DATE: SEP 25, 2021@13:07:43 AUTHOR: ANIVAL DEL ANGEL EXP COSIGNER: URGENCY: STATUS: COMPLETED VISIT DURATION: 35 minutes DIAGNOSES: PTSD; [employer] STATEMENT OF GOALS/CONCERNS: shared he is still e xperiencing moments of anxiety and hyperarousal. He gave example of his daughter screaming ( to try to get the dog to not go out of the house, which made him remember the d ay an [place] mother was screaming over the of her son)) and another time worrying seeing his family walking behind their yard at the tree line (which trigge red memories of scanning the tree line in for the e nemy where they often were). He was able to see how the themes are related to safety and danger. 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 He recalled in the past being [facility] a [facility] and he was the only one who didn't say anything, and he wan ts to do it differently this time. 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 He said, when ask ed, that he would like to get back to trauma processing when meeting with this justowriter operator in person. SESSION FOCUS: coping skills INTERVENTIONS: Psychotherapeutic Interventions: Assessment of sxs, s/i, well-being, and needs. Session review/bridging. Discussed follow up abo ut group and the windsurfing instructor referrals, employment and fitting in his mental health care, and focus for individual therapy. Elicited what he is doing to cope when he is anxious - he shared taking a walk, and using mj. He acknowled ged he didn't want to rely on the latter for symptom manag ement. Used RI to enhance the reasons for this, and explored other options. Reviewed battlef ield tapping as well as alpha-stim and how he might use those too. Used RI techniques to enhance motivation to focus on trauma processing. ASSESSMENT: BRIEF ASSESSMENT OF MENTAL STATUS: 1. Appearance (grooming, attire, apparent age) within normal limits: Yes 2. Thought content was organized and goal direc christo: Yes 3. Speech was coherent and unimpaired: Yes 4. Affect was appropriate and unremarkable: Improved - more focused, less anxious today 5. Demeanor was calm, with no signs of agitatio n or restlessness: Yes - except when discussing past trauma, which he was able to recognize and discuss how he might manage that today, including taking a walk/using alpha stim 6. Sleep was largely unimpaired and restful: Not asked 7. No evidence of psychosis (hallucinations or delusions): Yes 8. Mood was normal: Improved though endorsing episodes of anxiety Other Observations: RISK ASSESSMENT: Denied s/i PLAN FOR FOLLOW-UP: In person next week [facility] Video Connect (VVC) Standard Documentation VVC Clinician Resources Only: E911 (Emergency Call Relay Center): [phone] [employer] Crisis Line - ( 0-128-412-TALK) press #1. SUSIE Suicide Coordinator [phone], Ext. [phone]; Back-up Ext. [phone] Rehabilitation Tech of the Day(AOD), Henry RICHARDS [phone], Ext. [phone] Introduction: Visit is being conducted by [place] [facility]. [place] identified with 2 identifiers: [X] Full Name [ ] Date of [ ] VA ID Card *We shouldn't be asking for SSN over a video vis it so want to offer only acceptable identifiers for video visits.* Emergency Plan: confirmed and/or provided the following information in case of emergency or technology failure. PATIENT PHONE - [phone] PHONE NUMBER [CELLULAR] - Is patient phone number correct, if not, enter b elow: 's phone number: GEORGE MONTOYA [address] [place] [address] 's present location and address for appoi ntment: [address] [place] [address] [place]'s emergency contact name and phone numbe r: Thomas Maharaj (Mother) [phone] [place] reported that location is private and fe: Yes Informed Consent: informed of the risks and benefits of [facility] video care. [place] has the right to refuse video services. If refuses video visit, a cego-no-dkgg visit will be scheduled. [place] verbalized consent for this video visit: Yes [place] provided consent for any other persons p resent for visit: N/A If yes, who and relationship to patient: Secure visit: Visit was locked for security and privacy: Yes /ivelisse/ [employer] Signed: 09/25/2021 13:17
--- OUTSIDE RECORDS SUMMARY | 2022-04-18 10:07 | XMS_ITS | Encounter Summary ---
:1990 Author Organization Department [facility] rs Address [address] [place] [address] Support Name Relationship Address Phone TETE TRAN Unavailable [address] [facility] [phone] [address] [place] [address] THOMAS MONTOYA Unavailable 6 [facility] [place] [place] [address] Insurance Providers: All historical and current Section [...] Telephone Name to Policy Number Ojeda [facility] Aug 03, [id number] [phone] ROSINA CALLAHAN 2019 [id number] STEPHANIE JOHNSON [facility] DEPT Selected Encounter This section includes the information on record at [place] for the Encounter. Date/Time Encounter Type Encounter Description Reason Provider Source Sep 06, 2021 12:58 Outpatient Encounter TELEPHONE TRIAGE PM IHE Encounter Template Text not used by MT Plan of Treatment: Future Appointments (+ 6 months) and Future Tests (+/- 45 days) The Plan of Treatment section includes future care activities for the patient from all [place] treatmentfacilities. This section includes future appointments and future orders which are active, pending orscheduled.Future Appointments This section includes appointments that were scheduled to occur 6 months from the date of the Encounter, up to a maximum of 20 appointments. The data comes from all [place] treatment facilities. Appointment Date/Time Appointment Type Appointment Facili ty Name Sep 16, 2021 03:30 PM AMBULATORY - PSYCHIATRY [facility] Sep 17, 2021 04:00 PM AM[facility] [place] [facility] Sep 24, 2021 09:45 AM AM[facility]ULATORY [facility] NONE [facility] Sep 25, 2021 09:00 AM AMBULATORY [facility] [place] [facility] Sep 26, 2021 04:00 PM AMBUL[facility] Oct 01, 2021 07:00 AM AMBUL[facility] [place] [facility] Oct 02, 2021 10:00 AM [facility] Oct 04, 2021 09:00 AM AMBULAT[facility] [place] [facility] Oct 07, 2021 11:00 AM AMBULATORY [facility] [place] [facility] Oct 08, 2021 09:00 AM AMBULATORY [facility] [place] [facility] Oct 09, 2021 10:00 AM AMBULATORY [facility] [place] [facility] Oct 15, 2021 02:30 PM AMBULATORY - NONE [facility] [place] [facility] Oct 16, 2021 10:00 AM AMBULATORY [facility] [place] [facility] Oct 18, 2021 09:00 AM AMBULATORY [facility]RY [facility] [place] [facility] Oct 23, 2021 10:00 AM AMBULATORY - [facility] [place] [facility] Oct 30, 2021 10:00 AM AMBULATORY - [facility] [place] [facility] December 12, 2021 04:00 PM AMBULATORY - [facility] [place] [facility] Dec 19, 2021 11:45 AM AMBULATORY - MEDICINE [facility] [place] [facility] Dec 19, 2021 02:30 PM AMBULATORY - [facility]IATRY [facility] [place] [facility] Dec 20, 2021 04:00 PM AMBULATORY - [facility]ATRY [facility] [place] [facility] Social History: Smoking Status (Most current) and Tobacco Use (All prior to encounter date) This section includes the most current, and the historical, smoking and tobacco-related health factors from the VA facility where the Encounter took place.Current Smoking Status This section includes the most current smoking, or tobacco-related health factor, from the [place] facility where the Encounter took place. Date/Time Current Smoking Status Comment Facility May 23, 2021 02:30 PM VA-TOBACCO NEVER USED [place] [facility] [place] [facility] Encounter Notes: All associated encounter notes This section contains the clinical notes associated to the Encounter. Date/Time Encounter Note(s) Provider Source Sep 06, 2021 12:58 PM TELEPHONE ENCOUNTER NOTE: RAJEEV ROMAN [facility] LOCAL TITLE: VISN 1 CCC ACTION REQUIRED [place] [facility] STANDARD TITLE: TELEPHONE ENCOUNTER NOTE DATE OF NOTE: SEP 06, 2021@12:58:25 ENTRY DATE: SEP 06, 2021@13:00:55 AUTHOR: RAJEEV ROMAN EXP COSIGNER: URGENCY: STATUS: COMPLETED The patient, GEORGE MONTOYA ([id number]) called the call center. The following identifiers were used to verify th is patient: . SSN. Contact Type of call: REFERRAL/CONSULT REQUEST. Caller Response: ADM CALL RESOLVED Caller Area: [facility] Provider Info: LOCAL - [facility] [place] [facility] ([id number]) PACT: NO PACT 7 (Focus: Primary Care Only) Primary Care Provider: DIMITRI SCRUGGS ONE:[id number] Nursing Professor: ERIS PRAJAPATI PHONE :[phone] Clinical Associate: JODIE FRANCISCO PHONE:[phone] Head Of Precision Targeting: RYLEE GREER PACT Clinical Pharmacist: SUSSY SANTAMARIA PHONE:[phone] Clinical POC: Nursing Professor ERIS PRAJAPTAI PHONE:[phone] Administrative POC: Head Of Precision Targeting RYLEE GREER MH: [facility] MHC TEAM (TC) Blender Snuff ANIVAL DEL ANGEL PHON E:[phone] Author: RAJEEV ROMAN Comments: Vet calling to state went to [facility] ER on 09/04/2021 for bilateral hydrocele and was recommended to be re ferred to Urologist. The ER recommended the one in [facility], kindly call back at [phone] Evaluation/Management Code: HC PRO PHONE CALL 5- 10 MIN ([phone]). Starting at: 09/06/2021 @ 12:58:25 Ending at: 09/06/2021 @ 12:59:56 Length: 1 minutes. Chief Complaint: Not applicable to call. Class Code: Other specified counseling. Patient's Email Address: [email or web address] /ivelisse/ RAJEEV ROMAN Signed: 09/06/2021 13:00 Receipt Acknowledged By: * AWAITING SIGNATURE * DIMITRI SCRUGGS * AWAITING SIGNATURE * ERIS PRAJAPATI
--- OUTSIDE RECORDS SUMMARY | 2022-04-18 10:07 | XMS_ITS | Encounter Summary ---
:1990 Author Organization Department [facility] rs Address [address] [place] [address] Support Name Relationship Address Phone TETE TRAN Unavailable [address] [facility] [address] [place] [address] THOMAS MONTOYA Unavailable [address] [place] [address] Insurance Providers: All historical and current Section Date Range: From patient's date of to the date document was created.This section includes the names of all active insurance providers for the patient. Insurance Type of Plan Start of End of Group Member Insurance Policy P atient's Provider Coverage Name Policy Policy Number ID Provider's Oejda's Relationship Coverage Coverage Telephone Name to Policy Number Ojeda [facility] Aug 03, [id number] [phone] ALIAROSINA Mane PATIENT BEE GIMENEZ 2019 [id number] STEPHANIE JOHNSON [facility] E DEPT Selected Encounter This section includes the information on record at [place] for the Encounter. Date/Time Encounter Type Encounter Description Reason Provider Source Sep 26, 2021 04:00 Outpatient Encounter [facility] PM - IND IHE Encounter Template Text not used by [place] Plan of Treatment: Future Appointments (+ 6 months) and Future Tests (+/- 45 days) The Plan of Treatment section includes future care activities for the patient from all [place] treatmentfacilities. This section includes future appointments and future orders which are active, pending orscheduled.Future Appointments This section includes appointments that were scheduled to occur 6 months from the date of the Encounter, up to a maximum of 20 appointments. The data comes from all [place] treatment facilities. Appointment Date/Time Appointment Type Appointment Facili ty Name Oct 01, 2021 07:00 AM [facility] Oct 02, 2021 10:00 AM AM[facility] [place] [facility] Oct 04, 2021 09:00 AM AMBULATORY [facility]IATRY [facility] [place] [facility] Oct 07, 2021 11:00 AM AMBULATORY - PS[facility]IATRY [facility] [place] [facility] Oct 08, 2021 09:00 AM AMBULATORY - PS[facility]IATRY [facility] [place] [facility] Oct 09, 2021 10:00 AM AMBULATORY - PS[facility]IATRY [facility] [place] [facility] Oct 15, 2021 02:30 PM AMBULATORY - NONE [facility] [place] [facility] Oct 16, 2021 10:00 AM AMBULATORY - PS[facility]IATRY [facility] [place] [facility] Oct 18, 2021 09:00 AM AMBULATORY - PS[facility]IATRY [facility] [place] [facility] Oct 23, 2021 10:00 AM AMBULATORY - [facility]RY [facility] [place] [facility] Oct 30, 2021 10:00 AM AMBULATORY - [facility]RY [facility] [place] [facility] December 12, 2021 04:00 PM AMBULATORY - PS[facility]IATRY [facility] [place] [facility] Dec 19, 2021 11:45 AM AMBULATORY - MEDICINE [facility] [place] [facility] Dec 19, 2021 02:30 PM AMBULATORY - PS[facility]IATRY [facility] [place] [facility] Dec 20, 2021 04:00 PM AMBULATORY - PS[facility]IATRY [facility] [place] [facility] Dec 26, 2021 04:00 PM AMBULATORY - PS[facility]IATRY [facility] [place] [facility] Jan 09, 2022 04:00 PM AMBULATORY - PS[facility]IATRY [facility] [place] [facility] Jan 23, 2022 02:30 PM AMBULATORY - PS[facility]IATRY [facility] [place] [facility] Jan 30, 2022 08:00 AM AMBULATORY - MEDICINE [facility] [place] [facility] Jan 30, 2022 11:45 AM AMBULATORY - MEDICINE [facility] [place] [facility] Social History: Smoking Status (Most [...] VA-TOBACCO NEVER USED [facility] [place] [facility] Encounter Notes: All associated encounter notes This section contains the clinical notes associated to the Encounter. Date/Time Encounter Note(s) Provider Source Sep 26, 2021 04:12 PM CLERICAL NOTE: XANDER PEREA [facility] LOCAL TITLE: APPOINTMENT NO SHOW [place] [facility] STANDARD TITLE: CLERICAL NOTE DATE OF NOTE: SEP 26, 2021@16:12 ENTRY DATE: SEP 26, 2021@16:12:41 AUTHOR: XANDER PEREA EXP COSIGNER: URGENCY: STATUS: COMPLETED Patient Name: GEORGE MONTOYA Patient SSN: [id number] Date and time of Appointment No show : 09/26/21 16:00 PATIENT PHONE - PHONE NUMBER [CELLULAR] - Patient's medical record was reviewed. Follow-up actions were determined and initiated: Please check/complete as applies: [X]Telephoned Directly [ ]Re-scheduled for next available appt [X]Sent a N0-show letter ( must call for appointment) [ ]Other (Emergent/Overbook, etc.): Additional Comments: [place] did not show for today's Group screening session. A call was placed and VM left, informing [place] of this. Future Clinic Visits 10/04/2021 09:00 NHM/MHC/MER 10/07/2021 11:00 CWM/NO/MHC/NARCISO/TELE 10/18/2021 09:00 NHM/MHC/MER 11/15/2021 15:00 NHM/MHC/MER 11/19/2021 08:30 CWM/NO/DENTAL/DMD3 AM 12/19/2021 11:45 COM CARE-UROLOGY 02/07/2022 15:30 CWM/NO/PACT 7 08/28/2022 09:30 CWM/NO/OPTOMETRY/MERHAR /es/ Xander Perea PsyD Staff Psychologist Signed: 09/26/2021 16:15
--- OUTSIDE RECORDS SUMMARY | 2022-04-18 10:07 | XMS_ITS | Encounter Summary ---
:[address] [facility] Address [address] [place] [address] Support Name Relationship Address Phone TETE TRAN Unavailable [address] [facility] [place] [address] THOMAS MONTOYA Unavailable 6 [facility] [place] [address] Insurance Providers: All historical and current Section Date Range: From patient's date of to the date document was created.This section includes the names of all active insurance providers for the patient. Insurance Type of Plan Start of End of Group Member Insurance Policy P atient's Provider Coverage Name Policy Policy Number ID Provider's Ojeda's Relationship Coverage Coverage Telephone Name to Policy Number Ojeda [facility] Aug 03, [id number] [phone] ROSA MARIA CowanKS PATIENT BEE GIMENEZ 2019 [id number] STEPHANIE JOHNSON [facility] E DEPT Selected Encounter This section includes the information on record at VA for the Encounter. Date/Time Encounter Type Encounter Reason Provider Source Description Sep 16, 2021 Outpatient TELEPHONE ICD-10-CM F43.10 MATY STUART 03:30 PM Encounter Post-traumatic ELYN stress disorder, unspecified with Provider Comments: Posttraumatic stress disorder ([facility] [id number]) IHE Encounter Template Text not used by VA Assessments - Encounter Diagnoses This section includes the primary and secondary diagnoses documented for the Encounter. Date/Time Primary/Secondary Diagnosis Name Provider Source Diagnosis Sep 16, 2021 PRIMARY Post-traumatic WINSTON STUART [facility] WS TRN 03:30 PM stress disorder, [facility] unspecified Sep 16, 2021 SECONDARY Major depressive WINSTON STUART [facility] 03:30 PM disorder, [facility] recurrent, moderate Plan of Treatment: Future Appointments (+ 6 months) and Future Tests (+/- 45 days) The Plan of Treatment section includes future care activities for the patient from all VA treatmentfaallegh[facility] healthities. This section includes future appointments and future orders which are active, pending orscheduled.Future Appointments This section includes appointments that were scheduled to occur 6 months from the date of the Encounter, up to a maximum of 20 appointments. The data comes from all [place] treatment facilities. Appointment Date/Time Appointment Type Appointment Facili ty Name Sep 17, 2021 04:00 PM AMBULATORY - PS[facility]CHIATRY [facility] [place] [facility] Sep 24, 2021 09:45 AM AMBULATORY - NONE [facility] [place] [facility] Sep 25, 2021 09:00 AM AMBULATORY - PSYCHIATRY [facility] [place] [facility] Sep 26, 2021 04:00 PM AMBULATORY - PSYCHIATRY [facility] [place] [facility] Oct 01, 2021 07:00 AM AMBULATORY - PSYCHIATRY [facility] [place] [facility] Oct 02, 2021 10:00 AM AMBULATORY - PSYCHIATRY [facility] [place] [facility] Oct 04, 2021 09:00 AM AMBULATORY - PSYCHIATRY [facility] [place] [facility] Oct 07, 2021 11:00 AM AMBULATORY - PSYCHIATRY [facility] [place] [facility] Oct 08, 2021 09:00 AM AMBULATORY - PSYCHIATRY [facility] [place] [facility] Oct 09, 2021 10:00 AM AMBULATORY - PSYCHIATRY [facility] [place] [facility] Oct 15, 2021 02:30 PM AMBULATORY - NONE [facility] [place] [facility] Oct 16, 2021 10:00 AM AMBULATORY - PSYCHIATRY [facility] [place] [facility] Oct 18, 2021 09:00 AM AMBULATORY - PSYCHIATRY [facility] [place] [facility] Oct 23, 2021 10:00 AM AMBULATORY - PSYCHIATRY [facility] [place] [facility] Oct 30, 2021 10:00 AM AMBULATORY - PSYCHIATRY [facility] [place] [facility] December 12, 2021 04:00 PM AMBULATORY - PSYCHIATRY [facility] [place] [facility] Dec 19, 2021 11:45 AM AMBULATORY - MEDICINE [facility] [place] [facility] Dec 19, 2021 02:30 PM AMBULATORY - PS[place]CHIATRY [place] [facility] [place] [facility] Dec 20, 2021 04:00 PM AMBULATORY - PS[place]CHIATRY [place] [facility] [facility] Dec 26, 2021 04:00 PM [facility] Social History: Smoking Status (Most [...] 02:30 PM VA-TOBACCO NEVER USED [place] C N[facility] Encounter Notes: All associated encounter notes This section contains the clinical notes associated to the Encounter. Date/Time Encounter Note(s) Provider Source Sep 16, 2021 11:21 ACCOUNTING OF DISCLOSURES NOTE: [facility]Y STUART [facility] LOCAL TITLE: STATE PRESCRIPTION DRUG MONITORING PROGRAM [facility] STANDARD TITLE: ACCOUNTING OF DISCLOSURES NOTE DATE OF NOTE: SEP 16, 2021@23:21:40 ENTRY DATE: SEP 16, 2021@23:21:40 AUTHOR: DENISE STUART EXP COSIGNER: URGENCY: STATUS: COMPLETED This PDMP query was submitted by Amaury Stuart. The clinical justification for this PDMP query i s to review controlled substances prescribed outside of the VA, and any additional information that may become available, as an important compo nent of standard clinical care, and in accordance with [facility] policy. Patient information was shared with the PDMP Rebecca [employer]. No prescription(s) for controlled substances out side the VA were found in the last 90 days. /ivelisse/ DENISE STUART MD PSYCHIATRIST Signed: 09/16/2021 23:21 Sep 16, 2021 04:42 TELEPHONE ENCOUNTER NOTE: [facility] LOCAL TITLE: TELEHEALTH TELEPHONE NOTE [facility] STANDARD TITLE: TELEPHONE ENCOUNTER NOTE DATE OF NOTE: SEP 16, 2021@16:42 ENTRY DATE: SEP 16, 2021@16:42:22 AUTHOR: DENISE STUART EXP COSIGNER: URGENCY: STATUS: [...] psychotic features, Sleep Deprivation, Cannabis Use SUBJECTIVE: eGorge says that he feels h is anxiety is heightened lately. He is back in school and this has been stressful. He a lso has a and this is stressful. He doesn't think the lorazepam is as helpful as it used to be. He thinks he is using it about 2-3 times a week lat brian. He continues in therapy with Ramya. Says he meets with her tomorrow. He has had some increase in his suicidal thinking lately, but says that he f eels this is under control currently. He and Ramya went over his safety plan. He says his protective factor are his children and staying alive for them. George denies feeling like he would want or need inpatient treatment right now. He continues with his medications. He denies any side effects from the m, but just doesn't feel his anxiety is being controlled as well as he would want at his current doses. George says that his focus is an issue in [employer]. He doesn't feel he is able to concentrate on his school work. He estimates his sleep is about the norm (4-6 hours a night). SUBSTANCE ABUSE: Caffeine: denies Tobacco: denies Cocaine: [...] DAILY DOSE IN THE EARLY AFTERNOON. 2) CARBOXYMETHYLCELLULOSE 0.5% OPH SOLN INSTILL 1 DROP ACTIVE INTO EACH EYE FOUR TIMES A DAY 3) ESCITALOPRAM OXALATE 20MG TAB TAKE ONE TABLET BY ACTIVE MOUTH EVERY MORNING FOR MOOD/DEPRESSION 4) GABAPENTIN 400MG CAP TAKE ONE CAPSULE BY MOUT H FOUR ACTIVE TIMES A DAY FOR ANXIETY. DOSE INCREASE. 5) LORAZEPAM 0.5MG TAB TAKE ONE TABLET BY MOUTH ONCE ACTIVE DAILY NEEDED FOR EXTREME ANXIETY/NERVES 6) PRAZOSIN HCL 2MG CAP TAKE [...] FOR SLEEP Inactive Outpatient Medications Status 1) CLINDAMYCIN HCL 300MG CAP TAKE ONE CAPSULE BY MOUTH THREE TIMES A DAY FOR INFECTION 2) LACTOBACILLUS ACIDOPHILUS TAB TAKE 1 TABLET B Y MOUTH THREE TIMES A DAY 10 Total Medications MEDICATION ADHERENCE: takes medications most day s MEDICATION SIDE EFFECTS: none OBJECTIVE:recent labs:HGB A1C (WR): 4.7 WBC: 4.66 RBC: 5.38 HGB: 16.3 HCT: 47.2 MCV: 87.7 MCHC: 34.5 RDW: 11.9 L PLT: 247 MCH: 30.3 FREE T-4 (WR): 1.36 GLUCOSE: 81 UREA NITROGEN: 17 SODIUM: 139 POTASSIUM: 4.3 CHLORIDE: 105 CO2: 24 CHOLESTEROL: 191 PROTEIN,TOTAL: 7.4 ALBUMIN: 4.3 ALKALINE PHOSPHATASE: 62 SGOT: 26 SGPT: 27 TRIGLYCERIDE: 110 LDL CHOL: 125 CHOL/HDL RATIO: 4.3 VIT. B12 (WROX): 409 HDL: 44 BILIRUBIN,TOT.: 1.0 TSH (Access): 0.48 CREATININE-EGFR: 1.18 eGFR(IDMS): 72 VITAMIN D TOTAL: 34 Weight: 191 lb [86.8 kg] (08/07/2021 10:58) BMI: 29.1 MENTAL STATUS EXAM: Orientation and Consciousness: Alert and fully o riented. Behavior: calm and cooperative. Speech: Normal rate and volume. Mood/Affect: I'm a little more anxious. Affect : constricted. Thought Production/Content: Logical, sequential & relevant to discussion. Perceptual Disturbances: None. Attention, concentration and memory based on answers to session questions: Good. Insight/Judgment: Both good. SI/HI: Neither elicited. Ability to Provide informed consent: Yes. ASSESSMENT:31 year old WHITE MALE, elizabet lee today for mental health follow up. TREATMENT PLAN/ DISCUSSION/ RATIONALE: 1.::: Medication management: Reviewed medication s with George today. He has been taking wellbutrin SR 10 0 mg BID, Lexapro 20 mg daily, Neurontin 400 mg QID, Prazosin 8 mg qHS, Trazodone 150 mg qHS and ativ an 0.5 mg daily prn anxiety. George reports more frequent anxiety with his l wayne stressors of having a and being back in school also. He asks f or a higher dose of the lorazepam as the 0.5 mg dose isn't enoug h for the anxiety lately. We discussed the habit forming nature of lorazepam and my con cerns about his using this regularly. Would like for his other medications to be the mainstays for treatment of his anxiety as opposed to the loraz epam which should just be temporary. Recommend an increase in the wellbutr in SR dose from 100 mg BID to 150 mg BID to better address the anxiety as well as his complaints of focus in school. George is agreeable to this. Will also temporarily increase his lorazepam from 0.5 mg to 1 mg qday prn. But we w ill look at reducing this in the next month or two depending on how he is doi ng. George mentions more frequent suicidal ideations. He denies a ctive intent and has been talking with Ramya about this and they went over his safet y plan. George says that his children keep him from acting on his thoughts. W jin discussed whether he would want to go inpatient for additional supp ort. He declines this. I don't believe that [facility]. Will abisai lyle to adjust George's medication to help him manage his anxiety and de pression. Next Visit: in 1 month. Patient is aware of how to access [facility] clinic in [facility] during weekdays for immediate mental health n [...] the community (i ncluding Crisis Line, 911, [place] National Suicide Prevention Lifeline: 7-474- 765-PQNF). Patient is instructed to contact me should [...] in the event of an emerg ency. BMI>30/>24.99 High Risk: Patient declines to discuss weight management. Patient declined weight discussion. Discussed r evisiting at a future visit. Medication Reconciliation: Outpatient: Has the patient been taking medications as docu mented in the EMLR? YES: The patient has been taking medications as documented in the EMLR. Essential Medication List for Review used to co mplete this medication reconciliation. INCLUDED IN THIS LIST: Alphabetical list of act cristy outpatient prescriptions dispensed from this [facility] (local) an d dispensed from another [place] or [place] facility (remote) as well as [...] provider. /ivelisse/ DENISE STUART MD PSYCHIATRIST Signed: 09/16/2021 23:21
--- OUTSIDE RECORDS SUMMARY | 2022-04-18 10:07 | XMS_ITS | Encounter Summary ---
:1990 Author Organization Department of [facility] rs Address [address] [place] [address] Support Name Relationship Address Phone TETE TRAN Unavailable 36 [facility] [phone] [address] [place] [address] THOMAS MONTOYA Unavailable 6 [place] [address] Insurance Providers: All historical and current Section [...] to Policy Number Ojeda [facility] Aug 03, [id number] [phone] ALIADarlyn CowanNC PATIENT BEE GIMENEZ [id number] STEPHANIE JOHNSON [facility] ORGANIZ E DEPT Selected Encounter This section includes the information on record at [facility] for the Encounter. Date/Time Encounter Type Encounter Reason Provider Source Description Sep 17, 2021 PSYTX W PT 45 MENTAL HEALTH ICD-10-CM F43.10 MER,CHRI ST 04:00 PM MINUTES CLINIC - IND Post-traumatic IE stress disorder, unspecified with Provider Comments: Posttraumatic stress disorder ([facility] [id number]) IHE Encounter Template Text not used by VA Assessments - Encounter Diagnoses This section includes the primary and secondary diagnoses documented for the Encounter. Date/Time Primary/Secondary Diagnosis Name Provider Source Diagnosis Sep 17, 2021 PRIMARY Post-traumatic MER,VERO [place] [facility] WS TRN 05:07 PM stress disorder, [facility] unspecified Sep 17, 2021 SECONDARY Major depressive MER,VERO [facility] WSTRN 05:07 PM disorder, [facility] recurrent, moderate [...] 20 appointments. The data comes from all [place] treatment facilities. Appointment Date/Time Appointment Type Appointment Facili ty Name Sep 24, 2021 09:45 AM AMBULATORY - NONE [facility] [place] [facility] Sep 25, 2021 09:00 AM AMBULATORY - PSYCHIATRY [facility] [place] [facility] Sep 26, 2021 04:00 PM AMBULATORY - PSYCHIATRY [facility] [place] [facility] Oct 01, 2021 07:00 AM AMBULATORY - PSYCHIATRY [facility] [place] [facility] Oct 02, 2021 10:00 AM AMBULATORY - PSYCHIATRY [facility] [place] [facility] Oct 04, 2021 09:00 AM AMBULATORY - PSYCHIATRY [facility] [place] [facility] Oct 07, 2021 11:00 AM AMBULATORY - PSYCHIATRY [facility] [place] [facility] Oct 08, 2021 09:00 AM AMBULATORY - PSYCHIATRY [facility] [place] [facility] Oct 09, 2021 10:00 AM AMBULATORY - PSYCHIATRY [facility] [place] [facility] Oct 15, 2021 02:30 PM AMBULATORY - NONE [facility] [place] [facility] Oct 16, 2021 10:00 AM AMBULATORY - PSYCHIATRY [facility] [place] [facility] Oct 18, 2021 09:00 AM AMBULATORY - PSYCHIATRY [facility] [place] [facility] Oct 23, 2021 10:00 AM AMBULATORY - PSYCHIATRY [facility] [place] [facility] Oct 30, 2021 10:00 AM AMBULATORY - PSYCHIATRY [facility] [place] [facility] December 12, 2021 04:00 PM AMBULATORY - PSYCHIATRY [facility] [place] [facility] Dec 19, 2021 11:45 AM AMBULATORY - MEDICINE [facility] [place] [facility] Dec 19, 2021 02:30 PM AMBULATORY - PSYCHIATRY [place] [facility] [place] [facility] Dec 20, 2021 04:00 PM AMBULATORY - PSYCHIATRY [place] [facility] [place] [facility] Dec 26, 2021 04:00 PM AMBULATORY - PSYCHIATRY [place] [facility] [place] [facility] Jan 09, 2022 04:00 PM [facility] Social History: Smoking Status (Most current) and Tobacco Use (All prior to encounter date) This section includes the most current, and the historical, smoking and tobacco-related health factors from the [place] facility where the Encounter took place.Current Smoking Status This section includes the most current smoking, or tobacco-related health factor, from the [place] facility where the Encounter took place. Date/Time Current Smoking Status Comment Facility May 23, 2021 02:30 PM VA-TOBACCO NEVER USED [place] [facility] Encounter Notes: All associated encounter notes This section contains the clinical notes associated to the Encounter. Date/Time Encounter Note(s) Provider Source Sep 17, 2021 04:00 TELEHEALTH NOTE: ANIVAL DEL ANGEL [facility] WST RN PM LOCAL TITLE: [place] VIDEO CONNECT SOCIAL WORK NOTE [facility] STANDARD TITLE: TELEHEALTH NOTE DATE OF NOTE: SEP 17, 2021@16:00 ENTRY DATE: SEP 17, 2021@16:54:50 AUTHOR: ANIVAL DEL ANGEL EXP COSIGNER: URGENCY: STATUS: COMPLETED VISIT DURATION: 50 minutes DIAGNOSES: PTSD; MDD [employer] STATEMENT OF GOALS/CONCERNS: talked about his struggle with h is anxiety, which started to get acute this afternoon. He said he t ried his rose tapping and meditation and it helped a bit. He talked about feeling stressed about hi s appointment with his psychiatrist yesterday, recent news about possib le changes to 's benefits, and events in [place]. He described an increase in PTSD sxs in response to the latter and intrusive memories. H e shared having some passing/fleeting s/i which has been less intense than previous and which he denies currently. He does not feel he needs to c ome in to the hospital (he is also following his safety plan regarding lethal means). He said he feels safe and that his is there, though he al so described that the relationship has its challenges. SESSION FOCUS: PTSD; treatment options INTERVENTIONS: Psychotherapeutic Interventions: Assessment of sxs, s/i, well-being, and needs. Suicide prevention/safety pl anning, discussing of treatment options, engagement around priorities regarding treatment, and encou ragement/instilling of hope. Reviewed coping skills (meditation, mindfulness, 4 square breathing, noticing negative thoughts about hims elf and reframing/using self-supporting statements). Discussed how to fit in prashanth tment with work/family. Elicited what he thought he needed, and he said meeting with ad copy writer, doing [place] VIV[place] work as he learned from [employer], working on his neg ative thoughts, and being around other veterans such as a rose paulette or a group . Affirmed/supported this. [place] said he was open to the [employer] group and could fit it in right n ow (he is in school and not working right now and can do the day the group is). Discussed Sunshine 9 and he said he would think about trying to make it work for the summer. Reviewed indicators he needs to seek admission, and he described tianna reness of a particular experience he had last time he sought admission where my body is radioactive, I didn't feel like myself, I was afraid of myself and that if he felt that he would seek admission. Also discussed option of s peaking with the special education classroom aide. He said he would like that as he feels disconnected from his elijah and it is important to him. Club Director will follow up on this for him. ASSESSMENT: BRIEF ASSESSMENT OF MENTAL STATUS: 1. Appearance (grooming, attire, apparent age) within normal limits: Yes 2. Thought content was organized and goal direc christo: Yes 3. Speech was coherent and unimpaired: Yes 4. Affect was appropriate and unremarkable: Yes - baseline anxiety 5. Demeanor was calm, with no signs of agitatio n or restlessness: Some restlessness secondary to anxiety 6. Sleep was largely unimpaired and restful: Not asked 7. No evidence of psychosis (hallucinations or delusions): Yes 8. Mood was normal: anxiety/depression present Other Observations: RISK ASSESSMENT: See above. No current intent or plan and motiva christo to follow treatment plan/safety plan. PLAN FOR FOLLOW-UP: In person next week [employer] Video Connect (VVC) Standard Documentation VVC Clinician Resources Only: E911 (Emergency Call Relay Center): [phone] National Veterans Crisis Line - ( 2-684-836-TALK) press #1. SUSIE Suicide Coordinator [phone], Ext. [phone]; Back-up Ext. [phone] [employer] Systems Engineer of the Day(AOD), Henry R[place]ARDS [phone], Ext. [phone] Introduction: Visit is being conducted by [place] Video Connect. identified with 2 identifiers: [X] Full Name [ ] Date of [ ] VA ID Card *We shouldn't be asking for SSN over a video vis it so want to offer only acceptable identifiers for video visits.* Emergency Plan: confirmed and/or provided the following information in case of emergency or technology failure. PATIENT PHONE - [phone] PHONE NUMBER [CELLULAR] - Is patient phone number correct, if not, enter b elow: 's phone number: GEORGE MONTOYA [address] [place] [id number] 's present location and address for appoi ntment: [facility] [place] [address] Snow Shoe's emergency contact name and phone numbe r: Thomas Maharaj (Mother) [phone] reported that location is private and sa fe: Yes Informed Consent: informed of the risks and benefits of Te health video care. [place] has the right to refuse video services. If refuses video visit, a [id number] visit will be scheduled. [place] verbalized consent for this video visit: Yes [place] provided consent for any other persons p resent for visit: N/A If yes, who and relationship to patient: Secure visit: Visit was locked for security and privacy: Yes /ivelisse/ ANIVAL DEL ANGEL CLERK ENTRY LEVEL CLINICAL GENERAL SCRAP WORKER Signed: 09/17/2021 17:07
--- OUTSIDE RECORDS SUMMARY | 2022-04-18 10:07 | XMS_ITS | Encounter Summary ---
:1990 Author Organization Department [facility] rs Address [address] [place] [address] Support Name Relationship Address Phone TETE TRAN Unavailable 36 [facility] [place] [address] THOMAS MONTOYA Unavailable 6 [facility] [place] [address] Insurance Providers: All historical and current Section [...] Telephone Name to Policy Number Ojeda [facility] Aug 03, [id number] [id number] ROSA MARIA ChapoNE PATIENT [facility] 2019 [id number] STEPHANIE JOHNSON [facility] E DEPT Selected Encounter This section includes the information on record at [place] for the Encounter. Date/Time Encounter Type Encounter Reason Provider Source Description Sep 24, 2021 CASE MGMT-ORAL DENTAL ICD-10-CM K08.531 JOSE BOOTHE 09:45 AM HEALTH LIT Fractured dental restorative material with loss of material with Provider Comments: Fractured dental restorative material with loss of material IHE Encounter Template Text not used by VA Assessments - Encounter Diagnoses This section includes the primary and secondary diagnoses documented for the Encounter. Date/Time Primary/Secondary Diagnosis Name Provider Source Diagnosis Sep 24, 2021 PRIMARY Fractured dental JOSE BOOTHE [place] [facility] WS TRN 10:40 AM restorative [facility] material with loss of material Sep 24, 2021 SECONDARY Disorder of teeth JOSE BOOTHE [place] [facility] W STRN 10:40 AM and supporting [place] [facility] structures, unspecified Plan of Treatment: Future Appointments (+ 6 months) and Future Tests (+/- 45 days) The Plan of Treatment section includes future care activities for the patient from all [facility]. This section includes future appointments and future orders which are active, pending orscheduled.Future Appointments This section includes appointments that were scheduled to occur 6 months from the date of the Encounter, up to a maximum of 20 appointments. The data comes from all [place] treatment facilities. Appointment Date/Time Appointment Type Appointment Facili ty Name Sep 25, 2021 09:00 AM AMBULATORY - PSYCHIATRY [facility] [place] [facility] Sep 26, 2021 04:00 PM AMBULATORY - PSYCHIATRY [facility] [place] [facility] Oct 01, 2021 07:00 AM AMBULATORY - PSYCHIATRY [facility] [place] [facility] Oct 02, 2021 10:00 AM AMBULATORY - PSYCHIATRY [facility] [place] [facility] Oct 04, 2021 09:00 AM AMBULATORY - PSYCHIATRY [facility] [place] [facility] Oct 07, 2021 11:00 AM AMBULATORY - PSYCHIATRY [facility] [place] [facility] Oct 08, 2021 09:00 AM AMBULATORY - PSYCHIATRY [facility] [place] [facility] Oct 09, 2021 10:00 AM AMBULATORY - PSYCHIATRY [facility] [place] [facility] Oct 15, 2021 02:30 PM AMBULATORY - NONE [facility] [place] [facility] Oct 16, 2021 10:00 AM AMBULATORY - PSYCHIATRY [facility] [place] [facility] Oct 18, 2021 09:00 AM AMBULATORY - PSYCHIATRY [facility] [place] [facility] Oct 23, 2021 10:00 AM AMBULATORY - PSYCHIATRY [facility] [place] [facility] Oct 30, 2021 10:00 AM AMBULATORY - PSYCHIATRY [facility] [place] [facility] December 12, 2021 04:00 PM AMBULATORY - PSYCHIATRY [facility] [place] [facility] Dec 19, 2021 11:45 AM AMBULATORY - MEDICINE [facility] [place] [facility] Dec 19, 2021 02:30 PM AMBULATORY - PSYCHIATRY [facility] [place] [facility] Dec 20, 2021 04:00 PM AMBULATORY - PSYCHIATRY [facility] [place] [facility] Dec 26, 2021 04:00 PM AMBULATORY - PSYCHIATRY [place] [facility] [place] [facility] Jan 09, 2022 04:00 PM AMBULATORY - PSYCHIATRY [place] [facility] [facility] Jan 23, 2022 02:30 PM AMBULATORY - PSYCHIATRY [place] [facility] [place] [facility] Social History: Smoking Status (Most [...] VA-TOBACCO NEVER USED [place] [facility] Encounter Notes: All associated encounter notes This section contains the clinical notes associated to the Encounter. Date/Time Encounter Note(s) Provider Source Sep 24, 2021 10:39 AM DENTISTRY NOTE: [facility] BO[facility] LOCAL TITLE: DENTAL NOTE [place] [facility] STANDARD TITLE: DENTISTRY NOTE DATE OF NOTE: SEP 24, 2021@10:39 ENTRY DATE: SEP 24, 2021@10:40:07 AUTHOR: JOSE BOOTHE EXP COSIGNER: URGENCY: STATUS: COMPLETED Patient Name: GEORGE MONTOYA, : [birth year], Age: 31 Visit: S: Sep 24, 2021@09:45 CWM/NO/DENTAL/DMD3 AM. Primary PCE Diagnosis: K08.531 (Fractured denta l restorative material with loss of material). Dental Category: 15-OPC, Class IV. Treatment St atus: Active. Planned Procedures: Unsequenced (D0150) COMPREHENSVE ORAL EVALUATION: . DX: (). Completed Care: (D2392) POST 2 SRFC RESINBASED CMPST. Tooth: 30 . Surface(s): DO. DX: K08.531 Fractured Dental Restorative Materi al with Loss of Material (D2391) POST 1 SRFC RESINBASED CMPST. Tooth: 19 . Surface(s): O. DX: K08.531 Fractured Dental Restorative Materi al with Loss of Material (D1206) TOPICAL FLUORIDE VARNISH. DX: K08.9 Disorder of Teeth and Supporting Stru ctures, unspecified (D1110) DENTAL PROPHYLAXIS ADULT. DX: K08.9 Disorder of Teeth and Supporting Stru ctures, unspecified (D1330) ORAL HYGIENE INSTRUCTION. DX: K08.9 Disorder of Teeth and Supporting Stru ctures, unspecified (D9994) CASE MGMT-ORAL HEALTH LIT. DX: K08.9 Disorder of Teeth and Supporting Stru ctures, unspecified - - - - - - - - - - - - - - - - - - - - - - - - - - - - - - The patient was identified by full name and soci al security number Reviewed the patient's medical/dental history, m edications and allergies. I performed medication reconciliation within the scope of my practice. All medications related to dentistry are up to d ate. Patient confirmed that he has taken the covid va ccine and opt out the covid test Discussed above proposed treatment plan. Patient understands and agrees with the treatment plan. Prophy completed with sandra and eh chaudhary. O HI discussed and patient understood the informationby verbalizing it back . TIME OUT/Safety goals (correct patient, procedur e, site, position) were verified immediately prior to the procedure. Diagnosis: Filling came out Plan: Restorative procedure local anesthesia: 1.7 ml 2% xylocaine with 1:100 ,000 epi Removed all caries and preped the surfaces noted above. The preped surfaces were etched with 40% phospho lydia acid gel and Resin adhesive was applied per protocol. Restored with Composite material Shade: A2 The occlusion was adjusted per protocol. Patient tolerated the procedure well Fluoride applied and POI was given. NV: Comp exam, t+3w, 75mins /es/ JOSE BOOTHE DMD Staff Dentist Signed: 09/24/2021 10:40
--- OUTSIDE RECORDS SUMMARY | 2022-04-18 10:07 | XMS_ITS ---
:1990 Author Organization Department of [facility] rs Address [address] [place] [address] Support Name Relationship Address Phone TETE TRAN Unavailable 36 [facility] [place] [address] THOMAS MONTOYA Unavailable 6 [facility] [place] [address] Insurance Providers: All historical and current Section Date Range: From patient's date of to the date document was created.This section includes the names of all active insurance providers for the patient. Insurance Type of Plan Start of End of Group Member Insurance Policy P atient's Provider Coverage Name Policy Policy Number ID Provider's Ojeda's Relationship Coverage Coverage Telephone Name to Policy Number Ojeda [facility] Aug 03, [id number] ALIAROSINA Mane PATIENT BEE GIMENEZ 2019 [id number] STEPHANIE JOHNSON [facility] ORGANIZ E DEPT Selected Encounter This section includes the information on record at [place] for the Encounter. Date/Time Encounter Type Encounter Reason Provider Source Description Sep 25, 2021 [place] HYDRO EXCAVATION OPERATOR TELEPHONE/CHAPLAI ICD-10-CM Z71.81 MISHEL VALERA 10:24 AM ASSESSMENT N Spiritual or denominational counseling with Provider Comments: Spiritual or [facility]iscop[facility] Counseling IHE Encounter Template Text not used by [place] Assessments - Encounter Diagnoses This section includes the primary and secondary diagnoses documented for the Encounter. Date/Time Primary/Secondary Diagnosis Name Provider Source Diagnosis Sep 25, 2021 PRIMARY Spiritual or LAVERNE VALERA [place] CNTRL WSTR N 10:24 AM denominational [place] [facility] counseling Plan of Treatment: Future Appointments (+ [...] AMBULATORY - PSYCHIATRY [facility] [place] [facility] Oct 01, 2021 07:00 AM AMBULATORY - PSYCHIATRY [facility] [place] [facility] Oct 02, 2021 10:00 AM AMBULATORY - PSYCHIATRY [facility] [place] [facility] Oct 04, 2021 09:00 AM AMBULATORY - PSYCHIATRY [facility] [place] [facility] Oct 07, 2021 11:00 AM AMBULATORY - PSYCHIATRY [facility] [place] [facility] Oct 08, 2021 09:00 AM AMBULATORY - PSYCHIATRY [facility] [place] [facility] Oct 09, 2021 10:00 AM AMBULATORY - PSYCHIATRY [facility] [place] [facility] Oct 15, 2021 02:30 PM AMBULATORY - NONE [facility] [place] [facility] Oct 16, 2021 10:00 AM AMBULATORY - PSYCHIATRY [facility] [place] [facility] Oct 18, 2021 09:00 AM AMBULATORY - PSYCHIATRY [facility] [place] [facility] Oct 23, 2021 10:00 AM AMBULATORY - PSYCHIATRY [facility] [place] [facility] Oct 30, 2021 10:00 AM AMBULATORY - PSYCHIATRY [facility] [place] [facility] December 12, 2021 04:00 PM AMBULATORY - PSYCHIATRY [facility] [place] [facility] Dec 19, 2021 11:45 AM AMBULATORY - MEDICINE [facility] [place] [facility] Dec 19, 2021 02:30 PM AMBULATORY - PSYCHIATRY [facility] [place] [facility] Dec 20, 2021 04:00 PM AMBULATORY - PSYCHIATRY [facility] [place] [facility] Dec 26, 2021 04:00 PM AMBULATORY - PSYCHIATRY [facility] [place] [facility] Jan 09, 2022 04:00 PM AMBULATORY - PSYCHIATRY [facility] [place] [facility] Jan 23, 2022 02:30 PM AMBULATORY - PSYCHIATRY [facility] Jan 30, 2022 08:00 AM [facility] Social History: Smoking Status (Most current) [...] 02:30 PM VA-TOBACCO [facility]ED [place] [facility] Encounter Notes: All associated encounter notes This section contains the clinical notes associated to the Encounter. Date/Time Encounter Note(s) Provider Source Sep 25, 2021 10:24 AM PASTORAL CARE CONSULT: LAVERNE VALERA [facility] LOCAL TITLE: CONSULT REPORT/PASTORAL CARE [facility] STANDARD TITLE: PASTORAL CARE CONSULT DATE OF NOTE: SEP 25, 2021@10:24 ENTRY DATE: SEP 25, 2021@10:24:40 AUTHOR: LAVERNE VALERA EXP COSIGNER: URGENCY: STATUS: COMPLETED Senior Analyst placed a call to Janene bush concerning the consult from his social media project manager. reports that now is not a good time for him to talk. Senior Analyst set an appointment for September 26 @ 9am. Cassandra de leon will call at the stated time and date. /es/ REV. LAVERNE VLAERA [facility] STAFF HYDRO EXCAVATION OPERATOR Signed: 09/25/2021 10:31 Receipt Acknowledged By: * AWAITING SIGNATURE * ANIVAL DEL ANGEL
--- OUTSIDE RECORDS SUMMARY | 2022-04-18 10:07 | XMS_ITS ---
:1990 Author Organization Department of [facility] rs Address [address] [place] [address] Support Name Relationship Address Phone TETE TRAN Unavailable 36 [facility] [phone] 3 [place] [address] THOMAS MONTOYA Unavailable 6 [facility] [place] [address] Insurance Providers: All historical and current Section [...] Name to Policy Number Ojeda [facility] Aug 03, [id number] ALIAROSINA Mane PATIENT BEE GIMENEZ [id number] STEPHANIE JOHNSON [facility] ORGANIZ E DEPT Selected Encounter This section includes the information on record at [place] for the Encounter. Date/Time Encounter Type Encounter Reason Provider Source Description Sep 26, 2021 [place] VENDOR MANAGEMENT ASSOCIATE TELEPHONE/CHAPLAI ICD-10-CM Z71.81 MISHEL VALERA 09:12 AM CHILD CARE ATTENDANT N Spiritual or INDIVIDU methodist counseling with Provider Comments: Spiritual or Zoroastrianism Counseling IHE Encounter Template Text not used by [place] Assessments - Encounter Diagnoses This section includes the primary and secondary diagnoses documented for the Encounter. Date/Time Primary/Secondary Diagnosis Name Provider Source Diagnosis Sep 26, 2021 PRIMARY Spiritual or LAVERNE VALERA [place] CNTRL WSTR N 09:12 AM methodist [place] [facility] counseling Plan of Treatment: Future Appointments [...] 20 appointments. The data comes from all [place] treatment facilities. Appointment Date/Time Appointment Type Appointment Facili ty Name Oct 01, 2021 07:00 AM AMBULATORY - PS[facility]CHIATRY [facility] [place] [facility] Oct 02, 2021 10:00 AM AMBULATORY - PSYCHIATRY [facility] [place] [facility] Oct 04, 2021 09:00 AM AMBULATORY - PSYCHIATRY [facility] [place] [facility] Oct 07, 2021 11:00 AM AMBULATORY - PSYCHIATRY [facility] [place] [facility] Oct 08, 2021 09:00 AM AMBULATORY - PSYCHIATRY [facility] [place] [facility] Oct 09, 2021 10:00 AM AMBULATORY - PSYCHIATRY [facility] [place] [facility] Oct 15, 2021 02:30 PM AMBULATORY - NONE [facility] [place] [facility] Oct 16, 2021 10:00 AM AMBULATORY - PSYCHIATRY [facility] [place] [facility] Oct 18, 2021 09:00 AM AMBULATORY - PSYCHIATRY [facility] [place] [facility] Oct 23, 2021 10:00 AM AMBULATORY - PSYCHIATRY [facility] [place] [facility] Oct 30, 2021 10:00 AM AMBULATORY - PSYCHIATRY [facility] [place] [facility] December 12, 2021 04:00 PM AMBULATORY - PSYCHIATRY [facility] [place] [facility] Dec 19, 2021 11:45 AM AMBULATORY - MEDICINE [facility] [place] [facility] Dec 19, 2021 02:30 PM AMBULATORY - PSYCHIATRY [facility] [place] [facility] Dec 20, 2021 04:00 PM AMBULATORY - PSYCHIATRY [facility] [place] [facility] Dec 26, 2021 04:00 PM AMBULATORY - PSYCHIATRY [facility] [place] [facility] Jan 09, 2022 04:00 PM AMBULATORY - PSYCHIATRY [facility] [place] [facility] Jan 23, 2022 02:30 PM AMBULATORY - PSYCHIATRY [facility] [place] [facility] Jan 30, 2022 08:00 AM AMBULATORY - MEDICINE [place] [facility] Jan 30, 2022 11:45 AM AMBULATORY MEDICINE [facility]N [facility] Social History: Smoking Status (Most current) and Tobacco Use (All prior to encounter date) This section includes the most current, and the historical, smoking and tobacco-related health factors from the [place] facility where the Encounter took place.Current Smoking Status This section includes the most current smoking, or tobacco-related health factor, from the [place] facility where the Encounter took place. Date/Time Current Smoking Status Comment Facility May 23, 2021 02:30 PM VA-TOBACCO NEVER USED [place] [facility] Encounter Notes: All associated encounter notes This section contains the clinical notes associated to the Encounter. Date/Time Encounter Note(s) Provider Source Sep 26, 2021 09:12 AM PASTORAL CARE COUNSELING NOTE: [facility] LOC[facility] TITLE: VENDOR MANAGEMENT ASSOCIATE COUNSELING NOTE [facility] STANDARD TITLE: PASTORAL CARE COUNSELING NOTE DATE OF NOTE: SEP 26, 2021@09:12 ENTRY DATE: SEP 26, 2021@09:12:33 AUTHOR: LAVERNE VAELRA EXP COSIGNER: URGENCY: STATUS: COMPLETED Colliery Clerk placed a call to at . He did not answer, so a voicemail message was left f or him requesting a call back at [phone], ext. [phone]. /es/ REV. LAVERNE VALERA, [facility] STAFF VENDOR MANAGEMENT ASSOCIATE Signed: 09/26/2021 09:15 Receipt Acknowledged By: * AWAITING SIGNATURE * ANIVAL DEL ANGEL
--- OUTSIDE RECORDS SUMMARY | 2022-04-18 10:08 | XMS_ITS | Encounter Summary ---
:1990 Author Organization Department [facility] Address [address] [place] [address] Support Name Relationship Address Phone TETE TRAN Unavailable [address] [place] [address] THOMAS MONTOYA Unavailable 6 [facility] [place] [address] Insurance Providers: All historical and current Section Date Range: From patient's date of to the date document was created.This section includes the names of all active insurance providers for the patient. Insurance Type of Plan Start of End of Group Member Insurance Policy P atient's Provider Coverage Name Policy Policy Number ID Provider's Ojeda's Relationship Coverage Coverage Telephone Name to Policy Number Ojeda [facility] Aug 03, [id number] ALIAROSINA Mane PATIENT BEE GIMENEZ [id number] STEPHANIE JOHNSON [facility] E DEPT Selected Encounter This section includes the information on record at [place] for the Encounter. Date/Time Encounter Type Encounter Reason Provider Source Description Sep 04, 2021 HC PRO PHONE TELEPHONE TRIAGE ICD-10-CM Z71.89 BONNIE BRAN 08:26 AM CALL 5-10 MIN Other specified R counseling with Provider Comments: Other specified counseling IHE Encounter Template Text not used by [place] Assessments - Encounter Diagnoses This section includes the primary and secondary diagnoses documented for the Encounter. Date/Time Primary/Secondary Diagnosis Name Provider Source Diagnosis Sep 04, 2021 PRIMARY Other specified SHANITA BRAN [place] CN[facility] [place] STRN 08:26 AM counseling [place] [facility] Plan of Treatment: Future Appointments (+ 6 [...] treatment facilities. Appointment Date/Time Appointment Type Appointment Krishani filipop Name Sep 16, 2021 03:30 PM AMBULATORY - PSYCHIATRY [facility] [place] [facility] Sep 17, 2021 04:00 PM AMBULATORY - PSYCHIATRY [facility] [place] [facility] Sep 24, 2021 09:45 AM AMBULATORY - NONE [facility] [place] [facility] Sep 25, 2021 09:00 AM AMBULATORY - PSYCHIATRY [facility] [place] [facility] Sep 26, 2021 04:00 PM AMBULATORY - PSYCHIATRY [facility] [place] [facility] Oct 01, 2021 07:00 AM AMBULATORY - PSYCHIATRY [facility] [place] [facility] Oct 02, 2021 10:00 AM AMBULATORY - PSYCHIATRY [facility] [place] [facility] Oct 04, 2021 09:00 AM AMBULATORY - PSYCHIATRY [facility] [place] [facility] Oct 07, 2021 11:00 AM AMBULATORY - PSYCHIATRY [facility] [place] [facility] Oct 08, 2021 09:00 AM AMBULATORY - PSYCHIATRY [facility] [place] [facility] Oct 09, 2021 10:00 AM AMBULATORY - PSYCHIATRY [facility] [place] [facility] Oct 15, 2021 02:30 PM AMBULATORY - NONE [facility] [place] [facility] Oct 16, 2021 10:00 AM AMBULATORY - PSYCHIATRY [facility] [place] [facility] Oct 18, 2021 09:00 AM AMBULATORY - PSYCHIATRY [facility] [place] [facility] Oct 23, 2021 10:00 AM AMBULATORY - PSYCHIATRY [facility] [place] [facility] Oct 30, 2021 10:00 AM AMBULATORY - PSYCHIATRY [facility] [place] [facility] December 12, 2021 04:00 PM AMBULATORY - PSYCHIATRY [facility] [place] [facility] Dec 19, 2021 11:45 AM AMBULATORY - MEDICINE [facility] [place] [facility] Dec 19, 2021 02:30 PM AMBULATORY - PSYCHIATRY [facility] [place] [facility] Dec 20, 2021 04:00 PM AMBULATORY - PSYCHIATRY [facility] [place] [facility] Lab Results: +/- 30 days of the [...] Result - Unit Interpretation Reference Range Comment Aug 07, 2021 [facility] THYROID T4 FREE(FT4) Specimen T ype: SERUM 11:28 AM [place] [facility] No comment enter ed. Ordering Provid er: DIMITRI SCRUGGS Report Released Date/Time: Aug 07, 2021 11:18 AM Reporting Lab: [facility] [place] [facility] [address] [facility] [address] Performing Lab: [place] [facility] [place] [facility] [address] [facility] [address] THYROID T4 FREE(FT4) 1.36 0.6-1.6 Aug 07, 2021 [place] [facility] VITAMIN D (25-OH) Specimen Type : SERUM 11:28 AM [place] [facility] No comment enter ed. Ordering Provid er: DIMITRI SCRUGGS Report Released Date/Time: Aug 07, 2021 11:18 AM Reporting Lab: [facility] [place] [facility] [address] [facility] [address] Performing Lab: [place] [facility] [place] [facility] [address] [facility] [address] VITAMIN D (25-OH) 34 20-50 Aug 07, 2021 11:28 AM [facility] [place] [facility] Specimen Type: SERUM HCS No comment enter ed. Ordering Provid er: DIMITRI SCRUGGS Report Released Date/Time: Aug 07, 2021 11:18 AM Reporting Lab: [facility] [place] [facility] [address] [facility] [address] Performing Lab: [facility] [place] [facility] [address] [facility] [address] TSH 0.48 0.35-5.00 Aug 07, 2021 11:28 [facility] V[facility] B12 Specimen Typ e: SERUM AM [facility] No comment enter ed. Ordering Provid er: DIMITRI SCRUGGS Report Released Date/Time: Aug 07, 2021 11:18 AM Reporting Lab: [facility] [address] [facility] [address] Performing Lab: [facility] [address] [facility] [address] VITAMIN B12 409 200-900 Aug 07, 2021 11:28 [facility] LIVER FUNCTION Specimen Typ e: SERUM AM [facility] No comment enter ed. Ordering Provid er: DIMITRI SCRUGGS Report Released Date/Time: Aug 07, 2021 11:18 AM Reporting Lab: [facility] [address] [facility] [address] Performing Lab: [facility] [address] [facility] [address] PROTEIN,TOTAL 7.4 6.0-8.3 ALBUMIN 4.3 3.5-5.0 ALKALINE PHOSPHATASE 62 40-150 AST 26 5-34 ALT 27 0-55 BILIRUBIN, TOTAL 1.0 0.2-1.2 Aug 07, 2021 [facility] HEMOGLOBIN A1C PANEL Specimen T ype: BLOOD 11:28 AM [facility] Comment: Testin g performed by NGSP certified Mejia Enzymatic with CV <2%. The Mejia HgA1C assay should not be used to diagnose or monitor diabetes in patients with altered red cell lifespan such a s homozygous hem oglobin variants, Hb SC, HbF>5% and hemolytic anemia. Heterozygous variants do not affect this assay, HbAS, HbAC, HbAD, HbAE, AbA2 Ordering Provid er: DIMITRI SCRUGGS Report Released Date/Time: Aug 07, 2021 11:18 AM Reporting Lab: [facility] [address] [facility] [address] Performing Lab: [facility] [address] [facility] [address] HEMOGLOBIN A1C 4.7 4.0-5.6 Aug 07, 2021 [place] [facility] BASIC METABOLIC PANEL Specimen Type: SERUM 11:28 AM [place] [facility] (non-fasting) No comment enter ed. Ordering Provid er: DIMITRI SCRUGGS Report Released Date/Time: Aug 07, 2021 11:18 AM Reporting Lab: [facility] [place] [facility] [address] [facility] [address] Performing Lab: [facility] [place] [facility] [address] [facility] [address] UREA NITROGEN 17 7-25 GLUCOSE 81 65-100 SODIUM 139 135-145 POTASSIUM 4.3 3.5-5.0 CHLORIDE 105 100-110 CO2 24 20-30 CREATININE, Serum 1.18 0.50-1.40 eGFR (IDMS) 72 >60 Aug 07, 2021 [facility] LIPID PANEL, NON Specimen Type: SERUM 11:28 AM [place] [facility] FASTING No comment enter ed. Ordering Provid er: DIMITRI SCRUGGS Report Released Date/Time: Aug 07, 2021 11:18 AM Reporting Lab: [facility] [place] [facility] [address] [facility] [address] Performing Lab: [facility] [place] [facility] [address] [facility] [address] CHOLESTEROL 191 0-199 TRIGLYCERIDE 110 0-150 LDL calculated 125 0-129 CHOL/HDL 4.3 HDL CHOLESTEROL 44 40-60 Aug 07, 2021 11:28 AM [facility] [place] CBC Specimen Type: BLOOD HCS No comment enter ed. Ordering Provid er: DIMITRI SCRUGGS Report Released Date/Time: Aug 07, 2021 11:18 AM Reporting Lab: [facility] [place] [facility] [address] [facility] [address] Performing Lab: [facility] [place] [facility] [address] [facility] [address] WBC 4.66 4.50-11.00 RBC 5.38 4.23-5.66 HGB 16.3 12.8-17 HCT 47.2 39.2-50.4 MCV 87.7 82-99 MCHC 34.5 30.8-35.1 PLT 247 140-360 RDW-CV 11.9 L 12.0-16.0 MCH 30.3 26.2-32.6 Social History: Smoking Status (Most current) and [...] VA-TOBACCO NEVER USED [place] C NTRL [place]STR[place] [facility] Encounter Notes: All associated encounter notes This section contains the clinical notes associated to the Encounter. Date/Time Encounter Note(s) Provider Source Sep 04, 2021 08:26 AM NURSING TELEPHONE ENCOUNTER TRIAGE NOTE: SHANITA MARTINEZ [place] [facility] LOCAL TITLE: VISN 1 CL[facility]ICAL [facility]TACT CENTER [facility] STANDARD TITLE: NURSING TELEPHONE ENCOUNTER TRIA GE NOTE DATE OF NOTE: SEP 04, 2021@08:26:45 ENTRY DATE: SEP 04, 2021@08:36:37 AUTHOR: SHANITA BRAN EXP COSIGNER: URGENCY: STATUS: COMPLETED The patient, GEORGE MONTOYA ([id number]) called the call center. Contact Type of call: SYMPTOM. Caller Response: CLN CALL RESOLVED Caller Area: [facility] Provider Info: LOCAL - [place] [facility] ([id number]) PACT: NO PACT 7 (Focus: Primary Care Only) Primary Care Provider: DIMITRI SCRUGGS PH ONE:[phone] Licensing Representative: ERIS PRAJAPATI PHONE :[phone] Clinical Associate: JODIE FRANCISCO PHONE:[phone] Kitchen Aide: RYLEE GREER PACT Clinical Pharmacist: SUSSY SANTAMARIA PHONE:[phone] Clinical POC: Licensing Representative ERIS PRAJAPATI PHONE:[phone] Administrative POC: Kitchen Aide RYLEE GREER MH: [facility] MHC TEAM ([facility]) Software Educator ANIVAL DEL ANGEL PHON E:[id number] Author: SHANITA BRAN Evaluation/Management Code: HC PRO PHONE CALL 5- 10 MIN ([phone]). Starting at: 09/04/2021 @ 8:26:45 AM Ending at: 09/04/2021 @ 8:32:27 AM Length: 5 minutes. Chief Complaint: Testicular Pain Class Code: Other specified counseling. Triage Note Phone Triage ThuSep 04 2021 08:28:00 GMT-0500 ([facility] damaris Time) Demographics 31 y/o Male Results CC: Testicular Pain Nurse Recommendation: Now TEDP Suggestion: Now Nurse Recommended Follow-up Location: Emergency department, [place] TEDP Suggested Follow-up Location: Emergency de partment, [place] Values and Measures Pain scale: 3 Duration of CC: 2 Days Positive Responses HPI: pain or tenderness in bulge or knot HPI: scrotal bulge or knot, worsening, new HPI: scrotum bulge or knot, tender Negative Responses Denies: HPI: scrotal edema Denies: HPI: testicular or scrotal pain, severe Denies: HPI: testicular pain, moderate to sever e Nurse Notes: Pt called this AM saying last night he s tarted with pain in his right testicle and can feel a pea-sized lump . Pt denies a his tory of having a hernia and says he does lift weights bu t says he doesn't think he's been lifting enough to cause a hernia. Pt denies any changes with bowels or urination. CCC RN advised the local ED for evaluation. Pt is agreeable and says he will go to [facility]. Pt was given ED notificatio n number. Alerting PACT Caller/ verbalizes understanding of the i nformation provided. Advised caller/[place] that a note will be forwarded to the provider and/or the rn progressive care unit for review, further recommendations , and/or follow-up. Patient's Email Address: Zonia /ivelisse/ SHANITA BRAN CALL CENTER REGISTERED NURSE Signed: 09/04/2021 08:36 Receipt Acknowledged By: * AWAITING SIGNATURE * ERIS PRAJAPATI * AWAITING SIGNATURE * JODIE FRANCISCO
--- OUTSIDE RECORDS SUMMARY | 2022-04-18 10:08 | XMS_ITS | Encounter Summary ---
:1990 Author Organization Department [facility] Address [address] [place] [address] Support Name Relationship Address Phone TETE TRAN Unavailable 36 [facility] [place] [address] THOMAS MONTOYA Unavailable 6 [facility] [address] Insurance Providers: All historical and current Section [...] Number Ojeda [facility] Aug 03, [id number] [phone] ALIAROSINA Mane [id number] STEPHANIE JOHNSON [facility] ORGANIZ E DEPT Selected Encounter This section includes the information on record at [place] for the Encounter. Date/Time Encounter Type Encounter Description Reason Provider Source Sep 06, 2021 01:56 Outpatient Encounter COMMUNITY CARE PM CONSULT IHE Encounter Template Text not used [...] 16, 2021 03:30 PM AMBULATORY - PSYCHIATRY [facility] Sep 17, 2021 04:00 PM AMBULATORY - PS[facility]CHIATRY [facility] [place] [facility] Sep 24, 2021 09:45 AM AMBULATORY - NONE [facility] [place] [facility] Sep 25, 2021 09:00 AM AMBULATORY - PSYCHIATRY [facility] [place] [facility] Sep 26, 2021 04:00 PM AMBULATORY - PSYCHIATRY [facility] [place] [facility] Oct 01, 2021 07:00 AM AMBULATORY - PSYCHIATRY [facility] [place] [facility] Oct 02, 2021 10:00 AM AMBULATORY - PS[facility]CHIATRY [facility] [place] [facility] Oct 04, 2021 09:00 AM AMBULATORY - PS[facility]CHIATRY [facility] [place] [facility] Oct 07, 2021 11:00 AM AMBULATORY - PS[facility]CHIATRY [facility] [place] [facility] Oct 08, 2021 09:00 AM AMBULATORY - PSYCHIATRY [facility] [place] [facility] Oct 09, 2021 10:00 AM AMBULATORY - PSYCHIATRY [facility] [place] [facility] Oct 15, 2021 02:30 PM AMBULATORY - NONE [facility] [place] [facility] Oct 16, 2021 10:00 AM AMBULATORY - PSYCHIATRY [facility] [place] [facility] Oct 18, 2021 09:00 AM AMBULATORY - PSYCHIATRY [facility] [place] [facility] Oct 23, 2021 10:00 AM AMBULATORY - PSYCHIATRY [facility] [place] [facility] Oct 30, 2021 10:00 AM AMBULATORY - PSYCHIATRY [facility] [place] [facility] December 12, 2021 04:00 PM AMBULATORY - PSYCHIATRY [facility] [place] [facility] Dec 19, 2021 11:45 AM AMBULATORY - MEDICINE [facility] [place] [facility] Dec 19, 2021 02:30 PM AMBULATORY - PSYCHIATRY [facility] [place] [facility] Dec 20, 2021 04:00 PM AMBULATORY - PSYCHIATRY [facility] [place] [facility] Social History: Smoking Status (Most current) and Tobacco Use (All prior to encounter date) This section includes the most current, and the historical, smoking and tobacco-related health factors from the [facility] facility where the Encounter took place.Current Smoking Status This section includes the most current smoking, or tobacco-related health factor, from the [place] facility where the Encounter took place. Date/Time Current Smoking Status Comment Facility May 23, 2021 02:30 PM VA-TOBACCO NEVER USED [facility] C [facility] [place] [facility] Encounter Notes: All associated encounter notes This section contains the clinical notes associated to the Encounter. Date/Time Encounter Note(s) Provider Source Sep 06, 2021 01:56 PM NONVA NOTE: [facility] LOCAL TITLE: COMMUNITY CARE COORDINATION PLAN STANDARD TITLE: NONVA NOTE DATE OF NOTE: SEP 06, 2021@13:56 ENTRY DATE: SEP 06, 2021@13:56:21 AUTHOR: MICHELLE CHAPIN EXP COSIGNER: URGENCY: STATUS: COMPLETED self-presented to community emergency fa cility Emergency Notification Intake Date Presenting to the Facility: Aug [facility] Hospital Name: Hospital: [place], [place] Address: City: [place] State: Zip Code: Phone : Chief complaint: SCROTUM PAIN Primary Diagnosis: Patient Admitted? No Community Facility Point of Contact: Name: Francy Phone: info from [employer] /ivelisse/ MICHELLE BLANDON Signed: 09/06/2021 13:57 Receipt Acknowledged By: * AWAITING SIGNATURE * CLAUDETTE SHAFER * AWAITING SIGNATURE * NIRMAL SELBY * AWAITING SIGNATURE * ERIS PRAJAPATI 09/06/2021 14:01 /es/ Raza Wylie DNP, FN P-BC, CNL Primary Care Nurse Practitioner
--- OUTSIDE RECORDS SUMMARY | 2022-04-18 10:08 | XMS_ITS | Encounter Summary ---
:1990 Author Organization [facility] Aff rs Address [address] [place] [address] Support Name Relationship Address Phone ELISA TRAN Unavailable 36 [facility] [phone] [address] [place] [address] THOMAS MONTOYA Unavailable [address] [place] [address] Insurance Providers: All historical and current Section [...] Telephone Name to Policy Number O[facility] Aug 03, [id number] [phone] ALIAROSINA Mane [id number] STEPHANIE JOHNSON [facility] ORGANIZ E DEPT Selected Encounter This section includes the information on record at [facility] for the Encounter. Date/Time Encounter Type Encounter Reason Provider Source Description Sep 03, 2021 PSYTX W PT 45 MENTAL HEALTH ICD-10-CM F43.10 MER,CHRI ST 04:00 PM MINUTES CLINIC - IND Post-traumatic IE stress disorder, unspecified with Provider Comments: Posttraumatic stress disorder ([facility] [id number]) IHE Encounter Template Text not used by [facility] Assessments - Encounter Diagnoses This section includes the primary and secondary diagnoses documented for the Encounter. Date/Time Primary/Secondary Diagnosis Name Provider Source Diagnosis Sep 04, 2021 PRIMARY Post-traumatic MER,VERO [place] [facility] WS TRN 08:12 AM stress disorder, [facility] unspecified Sep 04, 2021 SECONDARY Major depressive MER,VERO [place] [facility] WSTRN 08:12 AM disorder, [facility] recurrent, moderate [...] - PSYCHIATRY [facility] [place] [facility] Sep 17, 2021 04:00 PM AMBULATORY - PSYCHIATRY [facility] [place] [facility] Sep 24, 2021 09:45 AM AMBULATORY - NONE [facility] [place] [facility] Sep 25, 2021 09:00 AM AMBULATORY - PSYCHIATRY [facility] [place] [facility] Sep 26, 2021 04:00 PM AMBULATORY - PSYCHIATRY [facility] [place] [facility] Oct 01, 2021 07:00 AM AMBULATORY - PSYCHIATRY [facility] [place] [facility] Oct 02, 2021 10:00 AM AMBULATORY - PSYCHIATRY [facility] [place] [facility] Oct 04, 2021 09:00 AM AMBULATORY - PSYCHIATRY [facility] [place] [facility] Oct 07, 2021 11:00 AM AMBULATORY - PSYCHIATRY [facility] [place] [facility] Oct 08, 2021 09:00 AM AMBULATORY - PSYCHIATRY [facility] [place] [facility] Oct 09, 2021 10:00 AM AMBULATORY - PSYCHIATRY [facility] [place] [facility] Oct 15, 2021 02:30 PM AMBULATORY - NONE [facility] [place] [facility] Oct 16, 2021 10:00 AM AMBULATORY - PSYCHIATRY [facility] [place] [facility] Oct 18, 2021 09:00 AM AMBULATORY - PSYCHIATRY [facility] [place] [facility] Oct 23, 2021 10:00 AM AMBULATORY - PSYCHIATRY [facility] [place] [facility] Oct 30, 2021 10:00 AM AMBULATORY - PSYCHIATRY [facility] [place] [facility] December 12, 2021 04:00 PM AMBULATORY - PSYCHIATRY [place] [facility] [place] [facility] Dec 19, 2021 11:45 AM AMBULATORY - MEDICINE [place] [facility] [place] [facility] Dec 19, 2021 02:30 PM AMBULATORY - PSYCHIATRY [facility] Dec 20, 2021 04:00 PM AMBULATORY - PSYCHIATRY [place] [facility] [place] [facility] Lab Results: +/- 30 days of the encounter This section includes the Chemistry and Hematology Lab Results on record with [place] for the patient. Radiology Reports and Pathology [...] Aug 07, 2021 11:18 AM Reporting Lab: [facility] [facility] [address] [facility] [address] Performing Lab: [facility] [place] [facility] [address] [facility] [address] THYROID T4 FREE(FT4) 1.36 0.6-1.6 Aug 07, 2021 11:28 AM [facility] [place] TSH Specimen Type: SERUM HCS No comment enter ed. Ordering Provid er: DIMITRI SCRUGGS Report Released Date/Time: Aug 07, 2021 11:18 AM Reporting Lab: [facility] [place] [facility] [address] [facility] [address] Performing Lab: [facility] [place] [facility] [address] [facility] [address] TSH 0.48 0.35-5.00 Aug 07, 2021 [facility] VITAMIN D (25-OH) Specimen Type : SERUM 11:28 AM [facility] No comment enter ed. Ordering Provid er: DIMITRI SCRUGGS Report Released Date/Time: Aug 07, 2021 11:18 AM Reporting Lab: [facility] [address] [facility] [address] Performing Lab: [facility] [address] [facility] [address] VITAMIN D (25-[place]) 34 20-50 Aug 07, 2021 11:28 [facility] LIVER FUNCTION Specimen Typ e: SERUM [facility] No comment enter ed. Ordering Provid er: DIMITRI SCRUGGS Report Released Date/Time: Aug 07, 2021 11:18 AM Reporting Lab: [facility] [place] [address] [facility] [address] Performing Lab: [facility] [place] [address] [facility] [address] PROTEIN,TOTAL 7.4 6.0-8.3 ALBUMIN 4.3 3.5-5.0 ALKALINE PHOSPHATASE 62 40-150 AST 26 5-34 ALT 27 0-55 BILIRUBIN, TOTAL 1.0 0.2-1.2 Aug 07, 2021 [facility] HEMOGLOBIN A1C PANEL Specimen T ype: BLOOD 11:28 AM [facility] Comment: Testin g performed by NGSP [...] Aug 07, 2021 11:18 AM Reporting Lab: [facility] [address] [facility] [address] Performing Lab: [facility] [address] [facility] [address] HEMOGLOBIN A1C 4.7 4.0-5.6 Aug 07, 2021 11:28 [facility] VITAMIN B12 Specimen Typ e: SERUM AM [facility] No comment enter ed. Ordering Provid er: DIMITRI SCRUGGS Report Released Date/Time: Aug 07, 2021 11:18 AM Reporting Lab: [facility] [address] [facility] [address] Performing Lab: [facility] [address] [facility] [address] VITAMIN B12 409 200-900 Aug 07, 2021 [facility] LIPID PANEL, NON Specimen Type: SERUM 11:28 AM [facility] FASTING No comment enter ed. Ordering Provid er: DIMITRI SCRUGGS Report Released Date/Time: Aug 07, 2021 11:18 AM Reporting Lab: [facility] [address] [facility] [address] Performing Lab: [facility] [address] [facility] [address] CHOLESTEROL 191 0-199 TRIGLYCERIDE 110 0-150 LDL calculated 125 0-129 CHOL/HDL 4.3 HDL CHOLESTEROL 44 40-60 Aug 07, 2021 [facility] BASIC METABOLIC PANEL Specimen Type: SERUM 11:28 [facility] (non-fasting) No comment enter ed. Ordering Provid er: DIMITRI SCRUGGS Report Released Date/Time: Aug 07, 2021 11:18 AM Reporting Lab: [facility] [address] [facility] [address] Performing Lab: [facility] [address] [facility] [address] UREA NITROGEN 17 7-25 GLUCOSE 81 65-100 SODIUM 139 135-145 POTASSIUM 4.3 3.5-5.0 CHLORIDE 105 100-110 CO2 24 20-30 CREATININE, Serum 1.18 0.50-1.40 eGFR (IDMS) 72 >60 Aug 07, 2021 11:28 AM [facility] [place] CBC Specimen Type: BLOOD HCS No comment enter ed. Ordering Provid er: DIMITRI SCRUGGS Report Released Date/Time: Aug 07, 2021 11:18 AM Reporting Lab: [facility] [address] [facility] [address] Performing Lab: [facility] [facility] [address] [place] [address] WBC 4.66 4.50-11.00 RBC 5.38 4.23-5.66 HGB 16.3 12.8-17 HCT 47.2 39.2-50.4 MCV 87.7 82-99 MCHC 34.5 30.8-35.1 PLT 247 140-360 RDW-CV 11.9 L 12.0-16.0 MCH 30.3 26.2-32.6 Social History: Smoking Status (Most current) and Tobacco Use (All prior to encounter date) This section includes the most current, and the historical, smoking and tobacco-related health factors from the [place] facility where the Encounter took place.Current Smoking Status This section includes the most current smoking, or tobacco-related health factor, from the [place] facility where the Encounter took place. Date/Time Current Smoking Status Comment Facility May 23, 2021 02:30 PM VA-TOBACCO NEVER USED [place] C NTRL WSTRN [facility] Encounter Notes: All associated encounter notes This section contains the clinical notes associated to the Encounter. Date/Time Encounter Note(s) Provider Source Sep 03, 2021 04:00 TELEHEALTH NOTE: ANIVAL DEL ANGEL [place] [facility] WST RN PM LOCAL TITLE: [place] VIDEO CONNECT SOCIAL WORK NOTE [facility] STANDARD TITLE: TELEHEALTH NOTE DATE OF NOTE: SEP 03, 2021@16:00 ENTRY DATE: SEP 03, 2021@16:55:16 AUTHOR: ANIVAL DEL ANGEL EXP COSIGNER: URGENCY: STATUS: COMPLETED VISIT DURATION: 50 minutes DIAGNOSES: PTSD; MDD [employer] STATEMENT OF GOALS/CONCERNS: Blossom reported having a difficult time the las t two weeks - more depressed, gloomy , withdrawn. He said he used to enjoy his time with his in laws but he hasn't been. He described emotional numbness. I 've been in a dark place . He shared thoughts of feeling l gamaliel a failure, worthless, and a piece of sh*t . He said he had thoughts of suicide 1 1/2 we eks ago, but reminded himself how much his kids need him/will need him in the future. He said to himself that he needs to be there for them. 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 He acknowledged being hard on himself and having a hard time shaking that off. He shared how yoga helps, as does exercise, thinking of his kids, and being g rateful for what he has. SESSION FOCUS: Suicide prevention; safety planni ng; coping INTERVENTIONS: Psychotherapeutic Interventions: Assessment of sxs, s/i, and well-being. Expressing care/concern, encouragement, instilli ng of hope. Safety planning (reviewed, a dded additional coping strategies). Elicited hwo he would know if he needed to seek admissio n/emergency care: when I am playing a mental chess match and I'm at 51% of I might do it, then I'll come in. Identified the part of him that is putting himse lf down and explored his relationship to it and how/where it may have for med. He denied being treated this way by anyone growing up. Explored possibil ity of his using Scoutzie language/communication to himself, and its impac t now. Encouraged being more fair to himself and setting a more understanding standard. Provided alternative perspective regarding how much he is juggling (n ew job and job training, new baby, 3 other kids, a marriage), his stressors, their impact on PTSD, and what is realistic to expect. Also disc ussed his report that he couldn't fit in intensive (residential, inpatient, or EBP) PTSD treatment with all his responsibilities. Explored what that arnaud ns for him (surviving/coping versus treating his PTSD). Provided reflective l istening on this and also looking at possible options in the short and intermediate project manager. Discussed appointments and continuing to meet when he can, and using hi s coping skills. ASSESSMENT: BRIEF ASSESSMENT OF MENTAL STATUS: 1. Appearance (grooming, attire, apparent age) within normal limits: Yes 2. Thought content was organized and goal direc christo: Yes 3. Speech was coherent and unimpaired: Yes 4. Affect was appropriate and unremarkable: Anxious/distressed 5. Demeanor was calm, with no signs of agitatio n or restlessness: Some physical restlessness 6. Sleep was largely unimpaired and restful: Not asked 7. No evidence of psychosis (hallucinations or delusions): Yes 8. Mood was normal: depressed Other Observations: RISK ASSESSMENT: Had thoughts of using his gun to kill himself ap proximately 1.5 weeks ago. Provided lethal means counseling. Encouraged brett in storing his gun somewhere else (not on the property). He was not amenable to this. He continues to keep gun and ammo separate. Discussed how he might separate them further. He agreed to put the gun in his garage inside his brother's large storage locker and keep the ammo in the attic. Veter an is declining inpatient admission. He is denying a current plan or intent, and expressing reasons t o live, and is amenable to safety planning. As such an involuntary admission is not indicated at this time. Will continue to monitor francisco askew. Discussed inspector automatic typewriter being on vacation next week, and reminded/encouraged him to use crisis line s hould s/i return. PLAN FOR FOLLOW-UP: Return in two weeks [place] [facility] ([facility]) Standard Documentation [facility] Clinician Resources Only: E911 (Emergency Call Relay Center): [phone] [facility] Crisis Line - ( [phone]-TALK) press #1. SUSIE Suicide Coordinator [phone], Ext. [phone]; Back-up Ext. [phone] Baseball Glove Stuffer of the Day(AOD), Henry RICHARDS [phone], Ext. [phone] Introduction: Visit is being conducted by [facility]. Blossom identified with 2 identifiers: [X] Full Name [ ] Date of [X] Address [ ] VA ID Card *We shouldn't be asking for SSN over a video vis it so want to offer only acceptable identifiers for video visits.* Emergency Plan: confirmed and/or provided the following information in case of emergency or technology failure. PATIENT PHONE - [phone] PHONE NUMBER [CELLULAR] - Is patient phone number correct, if not, enter b elow: 's phone number: GEORGE URIARTE JAN [address] [place] [address] Blossom's present location and address for appoi ntment: [address] [place] [address] Blossom's emergency contact name and phone numbe r: Thomas Maharaj (Mother) [phone] reported that location is private and fe: Yes Informed Consent: informed of the risks and benefits of [facility] care. has the right to refuse video services. If refuses video visit, a nmyf-zz-sizj visit will be scheduled. Blossom verbalized consent for this video visit: Yes provided consent for any other persons p resent for visit: N/A If yes, who and relationship to patient: Yes , Blossom's daughter's mother (Elisa) Secure visit: Visit was locked for security and privacy: Yes /ivelisse/ ANIVAL DEL ANGEL [facility] CLINICAL AGRICULTURAL SCIENCE PROFESSOR Signed: 09/04/2021 08:13 Receipt Acknowledged By: * AWAITING SIGNATURE * SHANITA EDDY * AWAITING SIGNATURE * DENISE STUART Sep 03, 2021 04:00 SUICIDE PREVENTION NOTE: ANIVAL DEL ANGEL C NTRL WSTRN PM LOCAL TITLE: SUICIDE PREVENTION SAFETY PLAN [facility] STANDARD TITLE: SUICIDE PREVENTION NOTE DATE OF NOTE: SEP 03, 2021@16:00 ENTRY DATE: SEP 04, 2021@08:14:26 AUTHOR: ANIVAL DEL ANGEL EXP COSIGNER: URGENCY: STATUS: COMPLETED SAFETY PLAN Please follow the steps described below on your Safety Plan. If you are experiencing a medical or mental heal th emergency, please call 911, at any time. If you are unable to reach your safety contacts or you are in crisis, please call the Veterans Crisis Line at [phone] (press 1). Step 1: Triggers, Risk Factors and Warning Sign s How will you know when you are in crisis and soumya t the Safety Plan should be used? What are your personal red flag s? 1. When I am playing a mental MyEnergyss match 2. When I'm feeling more depressed 3. When I'm feeling anxious, worrying about the future, worrying things won't get better 4. When I'm having racing thoughts when things accumulate, thinking about many problems 5. When I'm having racing thoughts when things accumulate, thinking about many problems Step 2: Internal Coping Strategies What can you do, on your own, to help you stay s afe and not act on your suicidal thoughts or urges in the future? What have you done in the past to stay safe? 1. Yoga 2. Exercise 3. The thought of my kids. They will need their father one day in the future and I have to be there for that. They nee d me. They need their Dad. 4. 2. Thinking about the aftermath, I've seen t he faces of the children and loved ones and they're devastated. 5. Practice my grounding and tapping coping ski lls 6. Contact my supports (, mother, uncle) Step 3: Social Contacts Who May Distract from t he Crisis Other than mental health providers and counselor s, who can you contact who helps take your mind off your problems or h elps you feel better? Name: Teodoro Davidson (Uncle) Phone number: [phone] Name: Elisa Tran () Phone number: [phone] What public places, groups, or social events hel p you feel better? Examples of social settings include community e vents, beaches, smith, coffee shops, malls, churches, clubs, 12 step m eetings, aftercare groups, support groups, Veterans organizations, t [place] social events. 1. [employer] (twice a year)- Could reach out to these people over the phone. 2. Gym, I feel better after I work out. 3. Consider picking up fishing. 4. 5. 6. Step 4: Family Members or Friends Who May Offer Help Who are friends or family members who should be included in your plan? Name: Laly (Thomas Mc) Phone number: [phone] Name: Teodoro Davidson (Uncle) Phone number: [phone] Name: Elisa Tran () Phone number: [phone] Step 5: Professionals and Agencies to Contact f or Help Who are the mental health professionals or profe ssional peer supports who should be included in your plan? Please list the numbers you would call in the or rasheed you would call them. Name: Anival Del Angel Phone number: [phone] ([employer]) Veterans Crisis Line: 1 [phone] 055 [phone] ([phone] ), press 1 Veterans Crisis Line Text Messaging Service: [phone] Veterans Crisis Line: https://www.veteranscrisis line.net/chat Call 911 in an emergency If you need to go to an urgent care center or em ergency room, where will you go? Facility name: [facility] Facility address: [address] [place], [place] [address] Facility phone number: [phone] Local [place] site-specific emergency numbers: Suicide Prevention Coordinators Office: [phone] Shanita Eddy, EQUIPMENT OPERATOR ext [phone] Yocasta Joseph, EQUIPMENT OPERATOR ext [phone] Step 6: Making the Environment Safe Ways to make my environment safer and barriers I will use to protect myself from these potentially lethal means: Separate ammo from my gun. Store my gun in the garage in my brother's storage locker and ammo in the attic of my house . Consider storing my gun away from my property. Blossom has access to firearms in their home or elsewhere: Yes Blossom indicated firearms are stored the follo wing way(s): Unloaded and stored separately from ammunition Firearm safe storage discussed with Blossom: Jose watt Gunlock offered to Blossom: Declining has access to opioids: No These are the people who will help me protect my self from having access to dangerous items: Name: Mother Blossom's current, physical address: [address] [place] [address] 's current phone number: Other Resources: - Virtual Hope Box smartphone application (crea te a hope box to remember good things in one's life) - Maketheconnection.net (source of -rela christo resources and information) - Safety Plan in PTSD Produce Team Member: www.ptsd.[place].gov/appvid/mobile/ptsdcoach_app.asp - Safety Plan in PTSD Produce Team Member Video: https://www.youtube.com/watch?v=CVx5trbzP1M was not given copy of this Safety Plan. Reason: reviewed over [facility]. Will be mailed to lizbeth ramesh. Family member/caregiver/friend was not given undercover cop y of this Safety Plan. Reason: prefers to speak privately abou t these matters with provider Family member/caregiver/friend did not participa te in this safety planning session. Reason: preferred to speak privately wi provider /es/ ANIVAL DEL ANGEL, [facility] CLINICAL AGRICULTURAL SCIENCE PROFESSOR Signed: 09/04/2021 08:25 Receipt Acknowledged By: * AWAITING SIGNATURE * SHANITA EDDY * AWAITING SIGNATURE * DENISE STUART
--- OUTSIDE RECORDS SUMMARY | 2022-04-18 10:08 | XMS_ITS | Encounter Summary ---
:1990 Author Organization Department [facility] rs Address [address] [place] [address] Support Name Relationship Address Phone TETE TRAN Unavailable [address] [facility] [phone] [address] [place] [address] THOMAS MONTOYA Unavailable 6 [facility] [place] [address] Insurance Providers: All historical and current Section [...] Telephone Name to Policy Number Ojeda [facility] Aug 03, [id number] [phone] ALIAROSINA Mane PATIENT BEE GIMENEZ [id number] STEPHANIE JOHNSON [facility] ORGANIZ E DEPT Selected Encounter This section includes the information on record at [place] for the Encounter. Date/Time Encounter Type Encounter Description Reason Provider Source Sep 04, 2021 12:00 Outpatient Encounter EVENT (HISTORICAL) AM IHE Encounter Template Text not used by [place] Plan of Treatment: Future Appointments (+ 6 [...] 16, 2021 03:30 PM AMBULATORY - PSYCHIATRY [facility] Sep 17, 2021 04:00 PM AMBULATORY [...] [facility] Oct 09, 2021 10:00 AM AMB[facility] Oct 15, 2021 02:30 PM AMBULATORY - NONE [facility] Oct 16, 2021 10:00 AM AMB[facility] Oct 18, 2021 09:00 AM AMB[facility] Oct 23, 2021 10:00 AM [facility] Oct 30, 2021 10:00 AM [facility] December 12, 2021 04:00 PM AMB[facility] Dec 19, 2021 11:45 AM [facility]ICINE [facility] Dec 19, 2021 02:30 PM AMBUL[facility] Dec 20, 2021 04:00 PM [facility] Lab Results: +/- [...] Lab: [facility] [address] [facility] [address] Performing Lab: [facility] [address] [facility] [address] THYROID T4 FREE(FT4) 1.36 0.6-1.6 Aug 07, 2021 [facility] VITAMIN D (25-OH) Specimen Type : SERUM 11:28 AM [facility] No comment enter ed. Ordering Provid er: DIMITRI SCRUGGS Report Released Date/Time: Aug 07, 2021 11:18 AM Reporting Lab: [facility] [address] [facility] [address] Performing Lab: [facility] [address] [facility] [address] VITAMIN D (25-OH) 34 20-50 Aug 07, 2021 11:28 AM [facility] [place] [facility] Specimen Type: SERUM [facility] No comment enter ed. Ordering Provid er: DIMITRI SCRUGGS Report Released Date/Time: Aug 07, 2021 11:18 AM Reporting Lab: [facility] [address] [facility] [address] Performing Lab: [facility] [address] [facility] [address] TSH 0.48 0.35-5.00 Aug 07, 2021 11:28 [facility] LIVER FUNCTION Specimen Typ e: SERUM AM [facility] No comment enter ed. Ordering Provid er: DIMITRI SCRUGGS Report Released Date/Time: Aug 07, 2021 11:18 AM Reporting Lab: [facility] [address] [facility] [address] [facility] [address] [facility] [address] PROTEIN,TOTAL 7.4 6.0-8.3 ALBUMIN 4.3 3.5-5.0 ALKALINE PHOSPHATASE 62 40-150 AST 26 5-34 ALT 27 0-55 BILIRUBIN, TOTAL 1.0 0.2-1.2 Aug 07, 2021 11:28 [facility] VITAMIN B12 Specimen Typ e: [facility]UM [facility] No comment enter ed. Ordering Provid er: DIMITRI SCRUGGS Report Released Date/Time: Aug 07, 2021 11:18 AM Reporting Lab: [facility] [address] [facility] [address] Performing Lab: [facility] [address] [facility] [address] VITAMIN B12 409 200-900 Aug 07, 2021 [facility] HEMOGLOBIN A1C PANEL Specimen T ype: BLOOD 11:28 AM [facility] Comment: Testin g performed by NGSP [...] Aug 07, 2021 11:18 AM Reporting Lab: [facility] [address] [facility] [address] Performing [facility]: [facility] [address] [facility] [address] HEMOGLOBIN A1C 4.7 4.0-5.6 Aug 07, 2021 [facility] BASIC METABOLIC PANEL Specimen Type: SERUM 11:28 AM [facility] (non-fasting) No comment enter ed. Ordering Provid er: DIMITRI SCRUGGS Report Released Date/Time: Aug 07, 2021 11:18 AM Reporting Lab: [facility] [address] [facility] [address] Performing Lab: [facility] [address] [facility] [address] UREA NITROGEN 17 7-25 GLUCOSE 81 65-100 SODIUM 139 135-145 POTASSIUM 4.3 3.5-5.0 CHLORIDE 105 100-110 CO2 24 20-30 CREATININE, Serum 1.18 0.50-1.40 eGFR (IDMS) 72 >60 Aug 07, 2021 [facility] LIPID PANEL, NON Specimen Type: SERUM 11:28 AM [facility] FASTING No comment enter ed. Ordering Provid er: DIMITRI SCRUGGS Report Released Date/Time: Aug 07, 2021 11:18 AM Reporting Lab: [facility] [address] [facility] [address] Per[facility] Lab: [facility] [place] [facility] [address] [facility] [address] CHOLESTEROL 191 0-199 TRIGLYCERIDE 110 0-150 LDL calculated 125 0-129 CHOL/HDL 4.3 HDL CHOLESTEROL 44 40-60 Aug 07, 2021 11:28 AM [facility] [place] CBC Specimen Type: BLOOD HCS No comment enter ed. Ordering Provid er: DIMITRI SCRUGGS Report Released Date/Time: Aug 07, 2021 11:18 AM Reporting Lab: [facility] [address] [facility] [address] Performing Lab: [facility] [address] [facility] [address] WBC 4.66 4.50-11.00 RBC 5.38 4.23-5.66 HGB [...] NEVER USED [facility] [place] [facility] Encounter Notes: All associated encounter notes This section contains the clinical notes associated to the Encounter. Date/Time Encounter Note(s) Provider Source Sep 04, 2021 12:00 AM NONVA NOTE: [facility] LOCAL TITLE: NON-VA HOSPITALIZATIONS/ER [place] [facility] STANDARD TITLE: NONVA NOTE DATE OF NOTE: SEP 04, 2021 ENTRY DATE: SEP 06 022@12:00:05 AUTHOR: GREG PUENTES COSIGNER: URGENCY: STATUS: COMPLETED VistA Imaging - Scanned Document SCANNED DOCUMENT SIGNATURE NOT REQUIRED Electronically Filed: 09/06/2021 by: JEISON PUENTES Gas Treater
--- OUTSIDE RECORDS SUMMARY | 2022-04-18 10:09 | XMS_ITS | Encounter Summary ---
:1990 Author Organization Department [facility] Address [address] [place] [address] Support Name Relationship Address Phone TETE TRAN Unavailable [address] [facility] [place] [address] THOMAS MONTOYA Unavailable 6 [facility] [place] [address] Insurance Providers: All historical and current Section Date Range: From patient's date of to the date document was created.This section includes the names of all active insurance providers for the patient. Insurance Type of Plan Start of End of Group Member Insurance Policy P atient's Provider Coverage Name Policy Policy Number ID Provider's Ojeda's Relationship Coverage Coverage Telephone Name to Policy Number Ojeda [facility] Aug 03, [id number] [phone] ROSA MARIA ChapoNM PATIENT BEE GIMENEZ [id number] STEPHANIE JOHNSON [facility] ORGANIZ E DEPT Selected Encounter This section includes the information on record at [facility] for the Encounter. Date/Time Encounter Type Encounter Reason Provider Source Description Jul 11, 2021 DETERMINE OPTOMETRY ICD-10-CM ANGI CATALAN 01:00 PM REFRACTIVE STATE H40.053 Ocular DAVEY J hypertension, bilateral with Provider Comments: Ocular Hypertension, Bilateral IHE Encounter Template Text not used by [facility] Assessments - Encounter Diagnoses This section includes the primary and secondary diagnoses documented for the Encounter. Date/Time Primary/Secondary Diagnosis Name Provider Source Diagnosis Aug 23, 2021 PRIMARY Ocular ANGI CATALAN [facility] 01:10 PM hypertension, [facility] J [facility] bilateral Aug 23, 2021 SECONDARY Dry eye syndrome ANGI CATALAN [facility] 01:10 PM of bilateral [facility] lacrimal glands Aug 23, 2021 SECONDARY Encounter for ANGI CATALAN [facility] RN 01:10 PM fit/adjst of [facility] spectacles and contact lenses Aug 23, 2021 SECONDARY Glare sensitivity ANGI CATALAN [facility] 01:10 PM [facility] Aug 23, 2021 SECONDARY Personal history ANGI CATALAN [facility] 01:10 PM of traumatic [facility] brain injury Aug 23, 2021 SECONDARY Post-traumatic OSANGI LEMA [facility] TRN 01:10 PM stress disorder, [facility] unspecified Plan of Treatment: Future Appointments (+ 6 months) and Future Tests (+/- 45 days) The Plan of Treatment section includes future care activities for the patient from all [place] treatmentfacilities. This section includes future appointments and future orders which are active, pending orscheduled.Future Appointments This section includes appointments that were scheduled to occur 6 months from the date of the Encounter, up to a maximum of 20 appointments. The data comes from all [place] treatment facilities. Appointment Date/Time Appointment Type Appointment Facili ty Name Jul 16, 2021 04:00 PM AMBULATORY - [facility]AT[facility] [place] [facility] Jul 18, 2021 01:30 PM AMBULATORY - [facility] [place] [facility] Jul 25, 2021 02:30 PM AMBULATORY - PS[facility]IATRY [facility] [place] [facility] Jul 26, 2021 09:00 AM AMBULATORY - MEDICINE [facility] [place] [facility] Jul 30, 2021 11:30 AM AMBULATORY - PS[facility]IATRY [facility] [place] [facility] Aug 07, 2021 11:00 AM AMBULATORY - MEDICINE [facility] [place] [facility] Aug 13, 2021 07:30 AM AMBULATORY - NONE [facility] [place] [facility] Aug 19, 2021 02:00 PM AMBULATORY - PS[facility]IATRY [facility] [place] [facility] Aug 28, 2021 10:20 AM AMBULATORY - MEDICINE [facility] [place] [facility] Aug 28, 2021 03:00 PM [facility]ICINE [facility] Aug 28, 2021 03:01 PM AMBULATORY - MEDICINE [facility] Aug 28, 2021 03:15 PM AMBULATORY - MEDICINE [facility] Sep 03, 2021 04:00 PM AMBULATORY - PS[facility]CHIATRY [facility] Sep 16, 2021 03:30 PM AMBULATORY - PS[facility]IATRY [facility] Sep 17, 2021 04:00 PM AMBULATORY - PS[facility]ATRY [facility] Sep 24, 2021 09:45 AM AMBULATORY - NONE [facility] Sep 25, 2021 09:00 AM AMBULATORY - PS[facility]IATRY [facility] Sep 26, 2021 04:00 PM AMBULATORY - PS[facility]IATRY [facility] [place] [facility] Oct 01, 2021 07:00 AM AMBULATORY - PS[facility]ATRY [facility] [place] [facility] Oct 02, 2021 10:00 AM AMBULATORY - PS[facility]IATRY [facility] [place] [facility] Lab Results: +/- 30 days of the encounter This section includes the Chemistry and Hematology Lab Results on record with [place] for the patient. Radiology Reports and Pathology Reports are provided separately, in subsequent sections.Lab Results This section contains the Chemistry/Hematology Results that were resulted 30 days before or 30 daysafter the date of the Encounter. Date/Time Source Result Type Result - Unit Interpretation Reference Range Comment Aug 07, 2021 [facility] THYROID T4 FREE(FT4) Specimen T ype: SERUM 11:28 AM [facility] No comment enter ed. Ordering Provid er: DIMITRI SCRUGGS Report Released Date/Time: Aug 07, 2021 11:18 AM Reporting Lab: [facility] [place] [facility] [address] [facility] [address] Performing Lab: [facility] [place] [facility] [address] [facility] [address] THYROID T4 FREE(FT4) 1.36 0.6-1.6 Aug 07, 2021 [facility] VITAMIN D (25-OH) Specimen Type : SERUM 11:28 AM [facility] [facility] No comment enter ed. Ordering Provid er: DIMITRI SCRUGGS Report Released Date/Time: Aug 07, 2021 11:18 AM Reporting Lab: [facility] [facility] [address] [facility] [address] Performing Lab: [facility] [facility] [address] [facility] [address] VITAMIN D (25-OH) 34 20-50 Aug 07, 2021 11:28 [facility] LIVER FUNCTION Specimen Typ e: SERUM AM [facility] [facility] No comment enter ed. Ordering Provid er: DIMITRI SCRUGGS Report Released Date/Time: Aug 07, 2021 11:18 AM Reporting Lab: [facility] [facility] [address] [facility] [address] Performing Lab: [facility] [facility] [address] [facility] [address] PROTEIN,TOTAL 7.4 6.0-8.3 ALBUMIN 4.3 3.5-5.0 ALKALINE PHOSPHATASE 62 40-150 AST 26 5-34 ALT 27 0-55 BILIRUBIN, TOTAL 1.0 0.2-1.2 Aug 07, 2021 11:28 AM [facility] [place] TSH Specimen Type: SERUM HCS No comment enter ed. Ordering Provid er: DIMITRI SCRUGGS Report Released Date/Time: Aug 07, 2021 11:18 AM Reporting Lab: [facility] [place] [facility] [address] [facility] [address] Performing Lab: [facility] [place] [facility] [address] [facility] [address] TSH 0.48 0.35-5.00 Aug 07, 2021 [facility] LIPID PANEL, NON Specimen Type: SERUM 11:28 AM [facility] [facility] No comment enter ed. Ordering Provid er: DIMITRI SCRUGGS Report Released Date/Time: Aug 07, 2021 11:18 AM Reporting Lab: [facility] [place] [facility] [address] [facility] [address] Performing Lab: [facility] [place] [facility] [address] [facility] [address] CHOLESTEROL 191 0-199 TRIGLYCERIDE 110 0-150 LDL calculated 125 0-129 CHOL/HDL 4.3 HDL CHOLESTEROL 44 40-60 Aug 07, 2021 [facility] BASIC METABOLIC PANEL Specimen Type: SERUM 11:28 AM [facility] (non-fasting) No comment enter ed. Ordering Provid er: DIMITRI SCRUGGS Report Released Date/Time: Aug 07, 2021 11:18 AM Reporting Lab: [facility] [address] [facility] [address] Performing Lab: [facility] [address] [facility] [address] UREA NITROGEN 17 7-25 GLUCOSE 81 65-100 SODIUM 139 135-145 POTASSIUM 4.3 3.5-5.0 CHLORIDE 105 100-110 CO2 24 20-30 CREATININE, Serum 1.18 0.50-1.40 eGFR (IDMS) 72 >60 Aug 07, 2021 11:28 [facility] VITAMIN B12 Specimen Typ e: SERUM AM [facility] No comment enter ed. Ordering Provid er: DIMITRI SCRUGGS Report Released Date/Time: Aug 07, 2021 11:18 AM Reporting Lab: [facility] [address] [facility] [address] Performing Lab: [facility] [address] [facility] [address] VITAMIN B12 409 200-900 Aug 07, 2021 [facility] HEMOGLOBIN A1C PANEL Specimen T ype: BLOOD 11:28 AM [facility] Comment: Testin g performed by NGSP certified [...] Aug 07, 2021 11:18 AM Reporting Lab: [facility] [address] [facility] [address] Performing Lab: [place] [facility] [place] [facility] [address] [facility] [address] HEMOGLOBIN A1C 4.7 4.0-5.6 Aug 07, 2021 11:28 AM [facility] [place] CBC Specimen Type: BLOOD HCS No comment enter ed. Ordering Provid er: DIMITRI SCRUGGS Report Released Date/Time: Aug 07, 2021 11:18 AM Reporting Lab: [facility] [place] [facility] [address] [facility] [address] Performing Lab: [facility] [place] [facility] [address] [facility] [address] WBC 4.66 4.50-11.00 RBC 5.38 4.23-5.66 HGB 16.3 12.8-17 HCT 47.2 39.2-50.4 MCV 87.7 82-99 MCHC 34.5 30.8-35.1 PLT 247 140-360 RDW-CV 11.9 L 12.0-16.0 MCH 30.3 26.2-32.6 Social History: Smoking Status (Most current) and Tobacco Use (All prior to encounter date) This section includes the most current, and the historical, smoking and tobacco-related health factors from the [place] facility where the Encounter took place.Current Smoking Status This section includes the most current smoking, or tobacco-related health factor, from the [place] facility where the Encounter took place. Date/Time Current Smoking Status Comment Facility May 23, 2021 02:30 PM VA-TOBACCO NEVER USED [facility] Encounter Notes: All associated encounter notes This section contains the clinical notes associated to the Encounter. Date/Time Encounter Note(s) Provider Source Jul 11, 2021 01:34 OPTOMETRY NOTE: [facility] LOCAL TITLE: OPTOMETRY NOTE [facility] STANDARD TITLE: OPTOMETRY NOTE DATE OF NOTE: JUL 11, 2021@13:34 ENTRY DATE: JUL 11, 2021@13:34:38 AUTHOR: LIS BOSWELL [facility] EXP COSIGNER: URGENCY: STATUS: COMPLETED Fit and ordered patient 3 pairs of specialty eye glasses per provider request. /ivelisse/ Lis [facility] [employer] Signed: 07/11/2021 13:34 Jul 11, 2021 12:42 OPTOMETRY NOTE: SUNDEEP CATALAN [place] [facility] PM LOCAL TITLE: OPTOMETRY NOTE [facility] STANDARD TITLE: OPTOMETRY NOTE DATE OF NOTE: JUL 11, 2021@12:42 ENTRY DATE: JUL 11, 2021@12:42:07 AUTHOR: SUNDEEP CATALAN EXP COSIGNER: URGENCY: STATUS: COMPLETED 31 yo MALE last examined 2018 with hx of TBI and light sensitivity He is straining to see since he lost his glasses. 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 DOSE INCREASE. 4) LORAZEPAM 0.5MG TAB TAKE ONE TABLET BY MOUTH ONCE ACTIVE DAILY NEEDED FOR EXTREME ANXIETY/NERVES 5) PRAZOSIN HCL 2MG CAP TAKE FOUR CAPSULES BY MO UTH AT ACTIVE BEDTIME - OFF LABEL USE FOR PTSD SYMPTOMS. DOSE INCREASE FROM 6 MG. allergies: Patient has answered NKA HEMOGLOBIN A1C TREND Collection DT Spec HGBA1c 08/31/2020 11:15 BLOOD 4.5 08/23/2019 11:41 BLOOD 4.6 06/07/2018 10:05 BLOOD 4.8 [facility] without OD 20/25 OS 20/20 current Rx OD OS refraction OD +0.50-1.80s215 20/20 OS +0.50-0.09n127 20/20-1 pupils: PERRL - RAPD OU EOM: full OU Conf: full OU vongraefe near phorias 6 exo 1 BU OS NRA +2.25 PRA -3.50 slit lamp cornea clear OU AC D and Q OU lids/lashes long lashes OU iris heterochromia OD conj bulbar clear OU palpebral clear OU angles gr 4 IOP OD 25 OS 27 time: 1 pm Icare repeated after dilation with IOP 25 OU Side effects of dilation medications discussed, patient stated clear understanding, and patient consented to dilation . Dilation warning given re: driving while dilated, blurred vision for severa l hours dilated 1% tropicamide( x ) 2.5 % phenylephrine( x ) lens clear OU vitreous clear OU c/d 0.5 OU disc color pink OU disc margins distinct ou macula clear OU vessels 2/3 periph intact ou A 1) PTSD/TBI hx with light sensitivity 2) OTN OU/glaucoma suspect 3) dry eye OU P 1)order new glasses with various tints for ind oors and outdoors 2) get VF and OCT in Aug 2021, repeat IOP then also 3) try Refresh qid OU rather than Visine Glaucoma: Patient was educated regarding glaucoma/glaucoma suspect as well as the natural history of this diagnosis including prognosis. Stress importance of compliance and persistency with glaucoma medication when prescribed, timely follow up as well as the role of ancillary testing. Exclusion criteria for anc illary testing include significantly reduced acuity, mental sta tus changes affecting the patient's ability to attend to the test or other physical limitations that would prohibit t he patient's ability to participate in testing. Medication Reconciliation: Outpatient: Has the patient been taking medications as docu mented in the EMLR? YES: The patient has been taking medications as documented in the EMLR. Essential Medication List for Review used to co mplete this medication reconciliation. INCLUDED IN THIS LIST: Alphabetical list of act cristy outpatient prescriptions dispensed from this [facility] (local) an d dispensed from another [place] or [facility] facility (remote) as well as inpatien t [...] with a VA or non-VA provider. /ivelisse/ Sundeep Catalan OD Fee Basis Moveman Signed: 07/11/2021 13:29
--- OUTSIDE RECORDS SUMMARY | 2022-04-18 10:09 | XMS_ITS | Encounter Summary ---
:1990 Author Organization Department [facility] Address [address] [place] [address] Support Name Relationship Address Phone TETE TRAN Unavailable [address] [facility] [place] [address] THOMAS MONTOYA Unavailable 6 [facility] [place] [address] Insurance Providers: All historical and current Section [...] Telephone Name to Policy Number Ojeda [facility] Aug 03, [id number] [phone] ROSA MARIA ChapoNC [facility]IENT [id number] STEPHANIE JOHNSON [facility] DEPT Selected Encounter This section includes the information on record at [facility] for the Encounter. Date/Time Encounter Type Encounter Reason Provider Source Description Aug 28, 2021 VISUAL FIELD OPTOMETRY ICD-10-CM ANGI ROBERTS 03:00 PM EXAMINATION(S) H40.013 Open DAVEY J angle with borderline findings, low risk, bilateral with Provider Comments: Glaucoma Suspect,Low Risk,Bilateral IHE Encounter Template Text not used by VA Assessments - Encounter Diagnoses This section includes the primary and secondary diagnoses documented for the Encounter. Date/Time Primary/Secondary Diagnosis Name Provider Source Diagnosis Aug 28, 2021 PRIMARY Open angle with ANGI ROBERTS [place] [facility] STR[place] 04:04 PM borderline [facility]AVEY J [facility] [facility] findings, low risk, bilateral Plan of Treatment: Future Appointments (+ 6 months) and Future Tests (+/- 45 days) The Plan of Treatment section includes future care activities for the patient from all [facility]. This section includes future appointments and future orders which are active, pending orscheduled.Future Appointments This section includes appointments that were scheduled to occur 6 months from the date of the Encounter, up to a maximum of 20 appointments. The data comes from all [place] treatment facilities. Appointment Date/Time Appointment Type Appointment Facili ty Name Sep 03, 2021 04:00 PM AMBULATORY - PSYCHIATRY [place] [facility] [place] [facility] Sep 16, 2021 03:30 PM AMBULATORY - PSYCHIATRY [facility] [place] [facility] Sep 17, 2021 04:00 PM AMBULATORY - PSYCHIATRY [facility] [place] [facility] Sep 24, 2021 09:45 AM AMBULATORY - NONE [place] [facility] [place] [place] [facility] Sep 25, 2021 09:00 AM AMBULATORY - PSYCHIATRY [facility] [place] [facility] Sep 26, 2021 04:00 PM AMBULATORY - PSYCHIATRY [facility] [place] [facility] Oct 01, 2021 07:00 AM AMBULATORY - PSYCHIATRY [facility] [place] [facility] Oct 02, 2021 10:00 AM AMBULATORY - PSYCHIATRY [facility] [place] [facility] Oct 04, 2021 09:00 AM AMBULATORY - PSYCHIATRY [facility] [place] [facility] Oct 07, 2021 11:00 AM AMBULATORY - PSYCHIATRY [facility] [place] [facility] Oct 08, 2021 09:00 AM AMBULATORY - PSYCHIATRY [facility] [place] [facility] Oct 09, 2021 10:00 AM AMBULATORY - PSYCHIATRY [facility] [place] [facility] Oct 15, 2021 02:30 PM AMBULATORY - NONE [place] [facility] [place] [place] [facility] Oct 16, 2021 10:00 AM AMBULATORY - PSYCHIATRY [facility] [place] [facility] Oct 18, 2021 09:00 AM AMBULATORY - PSYCHIATRY [facility] [place] [facility] Oct 23, 2021 10:00 AM AMBULATORY - PSYCHIATRY [facility] [place] [facility] Oct 30, 2021 10:00 AM AMBULATORY - PSYCHIATRY [place] [facility] [place] [facility] December 12, 2021 04:00 PM AMBULATORY - PSYCHIATRY [place] [facility] [place] [facility] Dec 19, 2021 11:45 AM AMBULATORY [facility] MEDICINE [place] [facility] [place] [facility] Dec 19, 2021 02:30 PM AMBULATORY - PSYCHIATRY [place] [facility] [facility] Lab Results: +/- 30 days [...] Interpretation Reference Range Comment Aug 07, 2021 [place] [facility] THYROID T4 FREE(FT4) Specimen T ype: SERUM 11:28 AM [place] [facility] No comment enter ed. Ordering Provid er: DIMITRI SCRUGGS Report Released Date/Time: Aug 07, 2021 11:18 AM Reporting Lab: [place] [facility] [place] [facility] [address] [facility] [address] Performing Lab: [place] [facility] [facility] [address] [facility] [address] THYROID T4 FREE(FT4) 1.36 0.6-1.6 Aug 07, 2021 [place] [facility] [place] VITAMIN D (25-OH) Specimen Type : SERUM 11:28 AM [place] [facility] No comment enter ed. Ordering Provid er: DIMITRI SCRUGGS Report Released Date/Time: Aug 07, 2021 11:18 AM Reporting Lab: [place] [facility] [facility] [address] [facility] [address] Performing Lab: [facility] [place] [facility] [address] [facility] [address] VITAMIN D (25-OH) 34 20-50 Aug 07, 2021 11:28 AM [facility] [place] TSH Specimen Type: SERUM [facility] No comment enter ed. Ordering Provid er: DIMITRI SCRUGGS Report Released Date/Time: Aug 07, 2021 11:18 AM Reporting Lab: [place] [facility] [facility] [address] [facility] [address] Performing Lab: [facility] [address] [facility] [address] TSH 0.48 0.35-5.00 Aug 07, 2021 11:28 [facility] VIT[facility] B12 Specimen Typ e: SERUM AM [place] [facility] No comment enter ed. Ordering Provid er: DIMITRI SCRUGGS Report Released Date/Time: Aug 07, 2021 11:18 AM Reporting Lab: [facility] [address] [facility] [address] Performing Lab: [facility] [address] [facility] [address] VITAMIN B12 409 200-900 Aug 07, 2021 [facility] HEMOGLOBIN A1C PANEL Specimen T ype: BLOOD 11:28 AM [facility] Comment: Testin g performed by NGSP [...] Aug 07, 2021 11:18 AM Reporting Lab: [facility] [address] [facility] [address] Performing Lab: [facility] [address] [facility] [address] HEMOGLOBIN A1C 4.7 4.0-5.6 Aug 07, 2021 11:28 [facility] LIVER FUNCTION Specimen Typ e: SERUM AM [place] [facility] No comment enter ed. Ordering Provid er: DIMITRI SCRUGGS Report Released Date/Time: Aug 07, 2021 11:18 AM Reporting Lab: [facility] [address] [facility] [address] Performing Lab: [facility] [address] [facility] [address] PROTEIN,TOTAL 7.4 6.0-8.3 ALBUMIN 4.3 3.5-5.0 ALKALINE PHOSPHATASE 62 40-150 AST 26 5-34 ALT 27 0-55 BILIRUBIN, TOTAL 1.0 0.2-1.2 Aug 07, 2021 [place] [facility] [facility] BASIC METABOLIC PANEL Specimen Type: SERUM 11:28 AM [place] [facility] (non-fasting) No comment enter ed. Ordering Provid er: DIMITRI SCRUGGS Report Released Date/Time: Aug 07, 2021 11:18 AM Reporting Lab: [place] [facility] [facility] [address] [facility] [address] Performing Lab: [place] [facility] [facility] [address] [facility] [address] UREA NITROGEN 17 7-25 GLUCOSE 81 65-100 SODIUM 139 135-145 POTASSIUM 4.3 3.5-5.0 CHLORIDE 105 100-110 CO2 24 20-30 CREATININE, Serum 1.18 0.50-1.40 eGFR (IDMS) 72 >60 Aug 07, 2021 [facility] LIPID PANEL, NON Specimen Type: SERUM 11:28 AM [place] [facility] FASTING No comment enter ed. Ordering Provid er: DIMITRI SCRUGGS Report Released Date/Time: Aug 07, 2021 11:18 AM Reporting Lab: [facility] [place] [facility] [address] [facility] [address] Performing Lab: [facility] [place] [facility] [address] [facility] [address] CHOLESTEROL 191 0-199 TRIGLYCERIDE 110 0-150 LDL calculated 125 0-129 CHOL/HDL 4.3 HDL CHOLESTEROL 44 40-60 Aug 07, 2021 11:28 AM [facility] [place] CBC Specimen Type: BLOOD HCS No comment enter ed. Ordering Provid er: DIMITRI SCRUGGS Report Released Date/Time: Aug 07, 2021 11:18 AM Reporting Lab: [place] [facility] [place] [facility] [address] [facility] [address] Performing Lab: [place] [facility] [facility] [address] [facility] [address] WBC 4.66 4.50-11.00 RBC 5.38 4.23-5.66 HGB 16.3 12.8-17 HCT 47.2 39.2-50.4 MCV 87.7 82-99 MCHC 34.5 30.8-35.1 PLT 247 140-360 RDW-CV 11.9 L 12.0-16.0 MCH 30.3 26.2-32.6 Social History: Smoking Status (Most current) and Tobacco Use (All prior to encounter date) This section includes the most current, and the historical, smoking and tobacco-related health factors from the [place] facility where the Encounter took place.Current Smoking Status This section includes the most current smoking, or tobacco-related health factor, from the [place] facility where the Encounter took place. Date/Time Current Smoking Status Comment Facility May 23, 2021 02:30 PM VA-TOBACCO NEVER USED [facility] NTRL WSTRN [facility] Encounter Notes: All associated encounter notes This section contains the clinical notes associated to the Encounter. Date/Time Encounter Note(s) Provider Source Aug 28, 2021 03:47 OPTOMETRY CONSULT: SUN[facility]EP ROBERTS [facility] LOCAL TITLE: CONSULT REPORT/OPTOMETRY VISUAL FI ELD Daniel [facility] STANDARD TITLE: OPTOMETRY CONSULT DATE OF NOTE: AUG 28, 2021@15:47 ENTRY DATE: AUG 28, 2021@15:47:41 AUTHOR: NATALIE JORDAN EXP COSIGNER: SUNDEEP ROBERTS URGENCY: STATUS: COMPLETED CONSULT REPORT/OPTOMETRY VISUAL FIELD Has A DDENDA VF 24-2 acquired for patient with Low risk open- angle glaucoma suspect OU OD: False Positives: 11% False Negatives: 0% Fixation losses: 0/10 VFI: 99% MD: 0.63 dB PSD: 1.70 dB P< 10% GHT: Within normal limits Impression: mild superior temporal defect likel y due to high FPs OS: False Positives: 0% False Negatives: 0% Fixation losses: 0/10 VFI: 100% MD: 0.48 dB PSD: 1.20 dB GHT: Within normal limits Impression: clear field ASSESSMENT/PLAN: 1)Low risk open-angle glaucoma suspect OU. Belinda l VF today. Moderate cupping with normotensive IOP.No fiordaliza dence of pigment dispersion or pseudoexfoliation OU. No known family history of glaucoma. No montero ge in ONH appearance. OCT and VF performed today was WNL OU. Low index of suspicion at present. -Pt ed re today's findings -Pt ed re glaucoma as well as the natural histo ry of this diagnosis including prognosis. -Stress importance of continued follow-up appoi ntments -Continue to monitor annually /ivelisse/ Sundeep Roberts OD Fee Basis Grease Press Helper Signed: 08/28/2021 16:05 for NATALIE JORDAN OPTOMETRY STUDENT /ivelisse/ Sundeep Roberts OD Fee Basis Grease Press Helper Cosigned: 08/28/2021 16:05 08/28/2021 ADDENDUM STATUS: COMPLETED I reviewed the VF today together with the slit l amp exam and OCT. Agree with plan /ivelisse/ Sundeep Roberts OD Fee Basis Grease Press Helper Signed: 08/28/2021 16:05
--- OUTSIDE RECORDS SUMMARY | 2022-04-18 10:09 | XMS_ITS | Encounter Summary ---
:1990 Author Organization Department [facility] Address [address] [place] [address] Support Name Relationship Address Phone TETE TRAN Unavailable [address] [facility] [place] [address] THOMAS MONTOYA Unavailable [address] [facility] [address] Insurance Providers: All historical and current Section [...] Ojeda [facility] Aug 03, [id number] [phone] ROSA MARIA ChapoIN PATIENT BEE GIMENEZ [id number] STEPHANIE JOHNSON [facility] DEPT Selected Encounter This section includes the information on record at VA for the Encounter. Date/Time Encounter Type Encounter Reason Provider Source Description Aug 19, 2021 Outpatient TELEPHONE ICD-10-CM F43.10 MATY STUART 02:00 PM Encounter Post-traumatic ELYN stress disorder, unspecified with Provider Comments: Posttraumatic stress disorder ([facility] [id number]) IHE Encounter Template Text not used by VA Assessments - Encounter Diagnoses This section includes the primary and secondary diagnoses documented for the Encounter. Date/Time Primary/Secondary Diagnosis Name Provider Source Diagnosis Aug 19, 2021 PRIMARY Post-traumatic WINSTON STUART [place] [facility] TRN 02:00 PM stress disorder, [facility] [place] [facility] unspecified Aug 19, 2021 SECONDARY Major depressive WINSTON STUART [place] WSTRN 02:00 PM disorder, [facility] [place] [facility] recurrent, moderate Plan of Treatment: Future Appointments (+ 6 months) and Future Tests (+/- 45 days) The Plan of Treatment section includes future care activities for the patient from all [facility]. This section includes future appointments and future orders which are active, pending orscheduled.Future Appointments This section includes appointments that were scheduled to occur 6 months from the date of the Encounter, up to a maximum of 20 appointments. The data comes from all [place] treatment facilities. Appointment Date/Time Appointment Type Appointment Facili ty Name Aug 28, 2021 10:20 AM AMBULATORY - MEDICINE [place] [facility] [place] [facility] Aug 28, 2021 03:00 PM AMBULATORY - MEDICINE [place] [facility] [place] [facility] Aug 28, 2021 03:01 PM AMBULATORY - MEDICINE [place] [facility] [place] [facility] Aug 28, 2021 03:15 PM AMBULATORY - MEDICINE [place] [facility] [place] [facility] Sep 03, 2021 04:00 PM AMBULATORY - PSYCHIATRY [facility] [place] [facility] Sep 16, 2021 03:30 PM AMBULATORY - PSYCHIATRY [facility] [place] [facility] Sep 17, 2021 04:00 PM AMBULATORY - PSYCHIATRY [facility] [place] [facility] Sep 24, 2021 09:45 AM AMBULATORY - NONE [place] [facility] [place] [facility] Sep 25, 2021 09:00 AM AMBULATORY - PSYCHIATRY [place] [facility] [place] [facility] Sep 26, 2021 04:00 PM AMBULATORY - PSYCHIATRY [place] [facility] [place] [facility] Oct 01, 2021 07:00 AM AMBULATORY - PSYCHIATRY [place] [facility] [place] [facility] Oct 02, 2021 10:00 AM AMBULATORY - PSYCHIATRY [place] [facility] [facility] Oct 04, 2021 09:00 AM AMBULATORY - PSYCHIATRY [place] [facility] [facility] Oct 07, 2021 11:00 AM AMBULATORY - PSYCHIATRY [place] [facility] [facility] Oct 08, 2021 09:00 AM AMBULATORY - PSYCHIATRY [place] [facility] [facility] Oct 09, 2021 10:00 AM AMBULATORY - PSYCHIATRY [place] [facility] [facility] Oct 15, 2021 02:30 PM [...] Lab: [facility] [place] [facility] [address] [facility] [address] Performing Lab: [facility] [place] [facility] [address] [facility] [address] THYROID T4 FREE(FT4) 1.36 0.6-1.6 Aug 07, 2021 [place] [facility] VITAMIN D (25-OH) Specimen Type : SERUM 11:28 AM [place] [facility] No comment enter ed. Ordering Provid er: DIMITRI SCRUGGS Report Released Date/Time: Aug 07, 2021 11:18 AM Reporting Lab: [facility] [place] [facility] [address] [facility] [address] Performing Lab: [facility] [place] [facility] [address] [facility] [address] VITAMIN D (25-OH) 34 20-50 Aug 07, 2021 11:28 AM [facility] [place] TSH Specimen Type: SERUM [facility] No comment enter ed. Ordering Provid er: DIMITRI SCRUGGS Report Released Date/Time: Aug 07, 2021 11:18 AM Reporting Lab: [facility] [place] [facility] [address] [facility] [address] Performing Lab: [facility] [place] [facility] [address] [facility] [address] TSH 0.48 0.35-5.00 Aug 07, 2021 11:28 [place] [facility] VITAMIN B12 Specimen Typ e: SERUM AM [place] [facility] No comment enter ed. Ordering Provid er: DIMITRI SCRUGGS Report Released Date/Time: Aug 07, 2021 11:18 AM Reporting Lab: [place] [facility] [place] [facility] [address] [facility] [address] Performing Lab: [place] [facility] [place] [facility] [address] [facility] [address] VITAMIN B12 409 200-900 Aug 07, 2021 11:28 [place] [facility] LIVER FUNCTION Specimen Typ e: SERUM AM [place] [facility] No comment enter ed. Ordering Provid er: DIMITRI SCRUGGS Report Released Date/Time: Aug 07, 2021 11:18 AM Reporting Lab: [place] [facility] [place] [facility] [address] [facility] [address] Performing Lab: [place] [facility] [place] [facility] [address] [facility] [address] PROTEIN,TOTAL 7.4 6.0-8.3 ALBUMIN 4.3 3.5-5.0 ALKALINE PHOSPHATASE 62 40-150 AST 26 5-34 ALT 27 0-55 BILIRUBIN, TOTAL 1.0 0.2-1.2 Aug 07, 2021 [place] [facility] LIPID PANEL, NON Specimen Type: SERUM 11:28 AM [place] [facility] FASTING No comment enter ed. Ordering Provid er: DIMITRI SCRUGGS Report Released Date/Time: Aug 07, 2021 11:18 AM Reporting Lab: [facility] [place] [facility] [address] [facility] [address] Performing Lab: [place] [facility] [place] [facility] [address] [facility] [address] CHOLESTEROL 191 0-199 TRIGLYCERIDE 110 0-150 LDL calculated 125 0-129 CHOL/HDL 4.3 HDL CHOLESTEROL 44 40-60 Aug 07, 2021 [facility] BASIC METABOLIC PANEL Specimen Type: SERUM 11:28 AM [place] [facility] (non-fasting) No comment enter ed. Ordering Provid er: DIMITRI SCRUGGS Report Released Date/Time: Aug 07, 2021 11:18 AM Reporting Lab: [facility] [address] [facility] [address] Performing Lab: [facility] [address] [facility] [address] UREA NITROGEN 17 7-25 GLUCOSE 81 65-100 SODIUM 139 135-145 POTASSIUM 4.3 3.5-5.0 CHLORIDE 105 100-110 CO2 24 20-30 CREATININE, Serum 1.18 0.50-1.40 eGFR (IDMS) 72 >60 Aug 07, 2021 11:28 AM [facility] [place] CBC Specimen Type: BLOOD [facility] No comment enter ed. Ordering Provid er: DIMITRI SCRUGGS Report Released Date/Time: Aug 07, 2021 11:18 AM Reporting Lab: [facility] [address] [facility] [address] Performing Lab: [facility] [address] [facility] [address] WBC 4.66 4.50-11.00 RBC 5.38 4.23-5.66 HGB 16.3 12.8-17 HCT 47.2 39.2-50.4 MCV 87.7 82-99 MCHC 34.5 30.8-35.1 PLT 247 140-360 RDW-CV 11.9 L 12.0-16.0 MCH 30.3 26.2-32.6 Aug 07, 2021 [facility] HEMOGLOBIN A1C PANEL Specimen T ype: BLOOD 11:28 AM [facility] Comment: Testin g performed by NGSP [...] Aug 07, 2021 11:18 AM Reporting Lab: [place] [facility] [facility] [facility] [address] [facility] [address] Performing Lab: [place] [facility] [address] [facility] [address] HEMOGLOBIN A1C 4.7 4.0-5.6 Social History: Smoking Status (Most current) and [...] PM VA-TOBACCO NEVER USED [place] [facility] Encounter Notes: All associated encounter notes This section contains the clinical notes associated to the Encounter. Date/Time Encounter Note(s) Provider Source Aug 19, 2021 10:00 TELEPHONE ENCOUNTER NOTE: [facility] TITLE: TELEHEALTH TELEPHONE NOTE [facility] STANDARD TITLE: TELEPHONE ENCOUNTER NOTE DATE OF NOTE: AUG 19, 2021@10:00 ENTRY DATE: AUG 19, 2021@10:00:51 AUTHOR: DENISE STUART EXP COSIGNER: URGENCY: STATUS: COMPLETED Time Spent: 5 minutes Patient consents to telehealth telephone visit [...] Use SUBJECTIVE: George says he is doing al right. He is at [facility] now with his who just delivered their baby boy. He says his mood has been stable. He feels good on his current medications. Paul abdi denies any side effects and does not want any changes to the doses of his medications . SUBSTANCE ABUSE: Caffeine: denies Tobacco: denies Cocaine: denies Opioid: denies Alcohol: Says he doesn't drink alcohol v milvia much. He says he will drink a beer every few months. 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 DOSE INCREASE. 6) LACTOBACILLUS ACIDOPHILUS TAB TAKE 1 TABLET B Y MOUTH ACTIVE THREE TIMES A DAY 7) LORAZEPAM 0.5MG TAB TAKE ONE TABLET BY MOUTH ONCE ACTIVE DAILY NEEDED FOR EXTREME ANXIETY/NERVES 8) PRAZOSIN HCL 2MG CAP TAKE FOUR CAPSULES BY MO UTH AT ACTIVE BEDTIME - OFF LABEL USE FOR PTSD SYMPTOMS. DOSE INCREASE FROM 6 MG. 9) SODIUM FLUORIDE 1.1% TOOTHPASTE BRUSH SMALL A MOUNT TO ACTIVE TEETH AT BEDTIME DIRECTED FOR TWO MINUTES, I N PLACE OF YOUR REGULAR TOOTHPASTE. AFTER USE, SP IT OUT. FOR PREVENTION OF DENTAL CARIES AND SENSITIVITY. 10) TRAZODONE HCL 100MG TAB TAKE ONE AND ONE-STACEY F TABLETS ACTIVE BY MOUTH AT BEDTIME NEEDED FOR SLEEP MEDICATION ADHERENCE: takes medications most day s MEDICATION SIDE EFFECTS: none OBJECTIVE: Weight: 191 lb [86.8 kg] (08/07/2021 10:58) BMI: 29.1 MENTAL STATUS EXAM: Orientation and Consciousness: Alert and fully o riented. Behavior: calm and cooperative. Speech: Normal rate and volume. Mood/Affect: good. Affect: euthymic. Thought Production/Content: Logical, sequential & relevant to discussion. Perceptual Disturbances: None. Attention, concentration and memory based on answers to session questions: Good. Insight/Judgment: Both good. SI/HI: Neither elicited. Ability to Provide informed consent: Yes. ASSESSMENT:31 year old WHITE MALE, [facility] for mental health follow up. TREATMENT PLAN/ DISCUSSION/ RATIONALE: 1.::: Medication management: Reviewed medication s today with George. He continues on lexapro 20 mg daily, wellbu obdulio SR 100 mg BID, prazosin 8 mg qHS, gabapentin 400 mg QID, trazo done 150 mg qHS prn insomnia and ativan 0.5 mg daily prn extreme anxiety. George denies any side eff ects to current medications. He would like to remain on this regimen. He and are celebrating the delivery of their son. George will cont inue also in therapy with Ramya Hernandez. Next Visit: in 1 month. Patient is aware of how to access [facility] open acce [facility] in [facility] during weekdays for immediate mental [...] with ongoing prescription of narcotics through this [place] facility. ::: Psychotropic meds were reconciled; and [...] the community (i ncluding Crisis Line, 911, [place] National Suicide Prevention Lifeline: 5-725- 806-OJGU). Patient is instructed to contact me should [...] provider. /ivelisse/ DENISE STUART MD PSYCHIATRIST Signed: 08/19/2021 14:18
--- OUTSIDE RECORDS SUMMARY | 2022-04-18 10:09 | XMS_ITS | Encounter Summary ---
:1990 Author Organization Department [facility] Address [address] [place] [address] Support Name Relationship Address Phone TETE TRAN Unavailable [address] [facility] [phone] 3 [place] [address] THOMAS MONTOYA Unavailable 6 [facility] [place] [address] Insurance Providers: All historical and current Section Date Range: From patient's date of to the date document was created.This section includes the names of all active insurance providers for the patient. Insurance Type of Plan Start of End of Group Member Insurance Policy P atient's Provider Coverage Name Policy Policy Number ID Provider's Ojeda's Relationship Coverage Coverage Telephone Name to Policy Number Ojeda [facility] Aug 03, [id number] [phone] ALIAROSINA Mane 2019 [id number] STEPHANIE JOHNSON [facility] ORGANIZ E DEPT Selected Encounter This section includes the information on record at [place] for the Encounter. Date/Time Encounter Type Encounter Description Reason Provider Source Aug 28, 2021 12:00 Outpatient Encounter COMMUNITY CARE AM [...] 03, 2021 04:00 PM AMBULATORY - PSYCHIATRY [facility] Sep 16, 2021 03:30 PM AMBULATORY [...] [facility] [place] [facility] [address] [facility] [address] Performing Lab: [facility] [place] [facility] [address] [facility] [address] THYROID T4 FREE(FT4) 1.36 0.6-1.6 Aug 07, 2021 11:28 AM [facility] [place] TSH Specimen Type: SERUM HCS No comment enter ed. Ordering Provid er: DIMITRI SCRUGGS Report Released Date/Time: Aug 07, 2021 11:18 AM Reporting Lab: [facility] [place] [facility] [address] [facility] [address] Performing Lab: [facility] [place] [facility] [address] [facility] [address] TSH 0.48 0.35-5.00 Aug 07, 2021 [facility] VITAMIN D (25-[place]) Specimen Type : SERUM 11:28 AM [place] [facility] No comment enter ed. Ordering Provid er: DIMITRI SCRUGGS Report Released Date/Time: Aug 07, 2021 11:18 AM Reporting Lab: [facility] [place] [facility] [address] [facility] [address] Performing Lab: [facility] [place] [facility] [address] [facility] [address] VITAMIN D (25-OH) 34 20-50 Aug 07, 2021 11:28 [facility] VITAMIN B12 Specimen Typ e: SERUM AM [place] [facility] No comment enter ed. Ordering Provid er: DIMITRI SCRUGGS Report Released Date/Time: Aug 07, 2021 11:18 AM Reporting Lab: [facility] [place] [facility] [address] [facility] [address] Per[facility] Lab: [facility] [place] [facility] [address] [facility] [address] VITAMIN B12 409 200-900 Aug 07, 2021 [place] [facility] LIPID PANEL, NON Specimen Type: SERUM 11:28 AM [place] [facility] FASTING No comment enter ed. Ordering Provid er: DIMITRI SCRUGGS Report Released Date/Time: Aug 07, 2021 11:18 AM Reporting Lab: [facility] [place] [facility] [address] [facility] [address] Performing Lab: [facility] [place] [facility] [address] [facility] [address] CHOLESTEROL 191 0-199 TRIGLYCERIDE 110 0-150 LDL calculated 125 0-129 CHOL/HDL 4.3 HDL CHOLESTEROL 44 40-60 Aug 07, 2021 [place] [facility] BASIC METABOLIC PANEL Specimen Type: SERUM 11:28 AM [place] [facility] (non-fasting) No comment enter ed. Ordering Provid er: DIMITRI SCRUGGS Report Released Date/Time: Aug 07, 2021 11:18 AM Reporting Lab: [facility] [place] [facility] [address] [facility] [address] Performing Lab: [facility] [place] [facility] [address] [facility] [address] UREA NITROGEN 17 7-25 GLUCOSE 81 65-100 SODIUM 139 135-145 POTASSIUM 4.3 3.5-5.0 CHLORIDE 105 100-110 CO2 24 20-30 CREATININE, Serum 1.18 0.50-1.40 eGFR (IDMS) 72 >60 Aug 07, 2021 11:28 [place] [facility] LIVER FUNCTION Specimen Typ e: SERUM AM [place] [facility] No comment enter ed. Ordering Provid er: DIMITRI SCRUGGS Report Released Date/Time: Aug 07, 2021 11:18 AM Reporting Lab: [facility] [place] [facility] [address] [facility] [address] Performing Lab: [facility] [address] [facility] [address] PROTEIN,TOTAL 7.4 6.0-8.3 ALBUMIN 4.3 3.5-5.0 ALKALINE PHOSPHATASE 62 40-150 AST 26 5-34 ALT 27 0-55 BILIRUBIN, TOTAL 1.0 0.2-1.2 Aug 07, 2021 [facility] HEMOGLOBIN A1C PANEL Specimen T ype: BLOOD 11:28 [facility] Comment: Testin g performed by NGSP [...] Aug 07, 2021 11:18 AM Reporting Lab: [facility] [address] [facility] [address] Performing Lab: [facility] [address] [facility] [address] HEMOGLOBIN A1C 4.7 4.0-5.6 Aug 07, 2021 11:28 AM [facility] CBC Specimen Type: BLOOD [facility] No comment enter ed. Ordering Provid er: DIMITRI SCRUGGS Report Released Date/Time: Aug 07, 2021 11:18 AM Reporting Lab: [facility] [address] [facility] [address] Performing Lab: [facility] [address] [facility] [address] WBC 4.66 4.50-11.00 RBC 5.38 4.23-5.66 HGB [...] VA-TOBACCO NEVER USED [facility] Encounter Notes: All associated encounter notes This section contains the clinical notes associated to the Encounter. Date/Time Encounter Note(s) Provider Source Aug 28, 2021 12:00 AM NONVA CONSULT: [place] [facility] [place] [facility] LOCAL TITLE: COMMUNITY CARE-CONSULT RESULT NOTE [facility] STANDARD TITLE: NONVA CONSULT DATE OF NOTE: AUG 28, 2021 ENTRY DATE: AUG 31@10:18:21 AUTHOR: TERESA PANCHAL EXP COSIGNER: URGENCY: STATUS: COMPLETED VistA Imaging - Scanned Document SCANNED DOCUMENT SIGNATURE NOT REQUIRED Electronically Filed: 08/31/2021 by: TERESA PANCHAL CHARGING CAR OPERATOR (LIGHTING TECHNICIAN)
--- OUTSIDE RECORDS SUMMARY | 2022-04-18 10:09 | XMS_ITS | Encounter Summary ---
:1990 Author Organization Department [facility] Address [address] [place] [address] Support Name Relationship Address Phone TETE TRAN Unavailable [address] [facility] [place] [address] THOMAS MONTOYA Unavailable [address] [facility] [place] [address] Insurance Providers: All historical and current Section Date Range: From patient's date of to the date document was created.This section includes the names of all active insurance providers for the patient. Insurance Type of Plan Start of End of Group Member Insurance Policy P atient's Provider Coverage Name Policy Policy Number ID Provider's Ojeda's Relationship Coverage Coverage Telephone Name to Policy Number Ojeda [facility] Aug 03, [id number] [phone] ALIADarlyn CowanCT PATIENT BEE GIMENEZ 2019 [id number] STEPHANIE JOHNSON [facility] ORGAN[facility] E DEPT Selected Encounter This section includes the information on record at [place] for the Encounter. Date/Time Encounter Type Encounter Reason Provider Source Description Aug 16, 2021 HC PRO PHONE TELEPHONE TRIAGE ICD-10-CM Z71.89 Killian BESS 09:48 AM CALL 5-10 MIN Other specified counseling with Provider Comments: Other specified counseling IHE Encounter Template Text not used by [place] Assessments - Encounter Diagnoses This section includes the primary and secondary diagnoses documented for the Encounter. Date/Time Primary/Secondary Diagnosis Name Provider Source Diagnosis Aug 16, 2021 PRIMARY Other specified JUANITA BESS [facility] WS TRN 09:48 AM counseling [facility] Plan of Treatment: Future Appointments (+ 6 [...] Appointment Type Appointment Facili ty Name Aug 19, 2021 02:00 PM AMBULATORY - PS[facility]IATRY [facility] [place] [facility] Aug 28, 2021 10:20 AM AMBULATORY - MEDICINE [facility] [place] [facility] Aug 28, 2021 03:00 PM AMBULATORY - MEDICINE [facility] [place] [facility] Aug 28, 2021 03:01 PM AMBULATORY - MEDICINE [facility] [place] [facility] Aug 28, 2021 03:15 PM AMBULATORY - MEDICINE [facility] [place] [facility] Sep 03, 2021 04:00 PM AMBULATORY - PSYCHIATRY [facility] [place] [facility] Sep 16, 2021 03:30 PM AMBULATORY - PSYCHIATRY [facility] [place] [facility] Sep 17, 2021 04:00 PM AMBULATORY - PSYCHIATRY [facility] [place] [facility] Sep 24, 2021 09:45 AM AMBULATORY - NONE [facility] [place] [facility] Sep 25, 2021 09:00 AM AMBULATORY - PSYCHIATRY [facility] [place] [facility] Sep 26, 2021 04:00 PM AMBULATORY - PSYCHIATRY [facility] [place] [facility] Oct 01, 2021 07:00 AM AMBULATORY - PSYCHIATRY [facility] [place] [facility] Oct 02, 2021 10:00 AM AMBULATORY - PSYCHIATRY [facility] [place] [facility] Oct 04, 2021 09:00 AM AMBULATORY - PSYCHIATRY [facility] [place] [facility] Oct 07, 2021 11:00 AM AMBULATORY - PSYCHIATRY [facility] [place] [facility] Oct 08, 2021 09:00 AM AMBULATORY - PSYCHIATRY [facility] [place] [facility] Oct 09, 2021 10:00 AM AMBULATORY - PSYCHIATRY [facility] [place] [facility] Oct 15, 2021 02:30 PM AMBULATORY - NONE [facility] [place] [facility] Oct 16, 2021 10:00 AM AMBULATORY [facility]RY [facility] [place] [facility] Oct 18, 2021 09:00 AM AMBULATORY - PS[facility]CHIATRY [facility] [place] [facility] Lab Results: +/- [...] Aug 07, 2021 11:18 AM Reporting Lab: [facility] [place] [facility] [address] [facility] [address] Performing Lab: [place] [facility] [place] [facility] [address] [facility] [address] THYROID T4 FREE(FT4) 1.36 0.6-1.6 Aug 07, 2021 [place] [facility] VITAMIN D (25-OH) Specimen Type : SERUM 11:28 AM [place] [facility] No comment enter ed. Ordering Provid er: DIMITRI SCRUGGS Report Released Date/Time: Aug 07, 2021 11:18 AM Reporting Lab: [facility] [place] [facility] [address] [facility] [address] Performing Lab: [facility] [place] [facility] [address] [facility] [address] VITAMIN D (25-OH) 34 20-50 Aug 07, 2021 11:28 AM [facility] [place] TSH Specimen Type: SERUM [facility]CS No comment enter ed. Ordering Provid er: DIMITRI SCRUGGS Report Released Date/Time: Aug 07, 2021 11:18 AM Reporting Lab: [facility] [place] [facility] [address] [facility] [address] Performing Lab: [facility] [place] [facility] [address] [facility] [address] TSH 0.48 0.35-5.00 Aug 07, 2021 11:28 [facility] VITAMIN B12 Specimen Typ e: SERUM AM [place] [facility] No comment enter ed. Ordering Provid er: DIMITRI SCRUGGS Report Released Date/Time: Aug 07, 2021 11:18 AM Reporting Lab: [facility] [place] [facility] [address] [facility] [address] Performing Lab: [facility] [place] [facility] [address] [facility] [address] VITAMIN B12 409 200-900 Aug 07, 2021 [place] [facility] LIPID PANEL, NON Specimen Type: SERUM 11:28 AM [place] [facility] FASTING No comment enter ed. Ordering Provid er: DIMITRI SCRUGGS Report Released Date/Time: Aug 07, 2021 11:18 AM Reporting Lab: [facility] [place] [facility] [address] [facility] [address] Performing Lab: [facility] [place] [facility] [address] [facility] [address] CHOLESTEROL 191 0-199 TRIGLYCERIDE 110 0-150 LDL calculated 125 0-129 CHOL/HDL 4.3 HDL CHOLESTEROL 44 40-60 Aug 07, 2021 [place] [facility] BASIC METABOLIC PANEL Specimen Type: SERUM 11:28 AM [place] [facility] (non-fasting) No comment enter ed. Ordering Provid er: DIMITRI SCRUGGS Report Released Date/Time: Aug 07, 2021 11:18 AM Reporting Lab: [facility] [place] [facility] [address] [facility] [address] Performing Lab: [facility] [place] [facility] [address] [facility] [address] UREA NITROGEN 17 7-25 GLUCOSE 81 65-100 SODIUM 139 135-145 POTASSIUM 4.3 3.5-5.0 CHLORIDE 105 100-110 CO2 24 20-30 CREATININE, Serum 1.18 0.50-1.40 eGFR (IDMS) 72 >60 Aug 07, 2021 [place] [facility] HEMOGLOBIN A1C PANEL Specimen T ype: BLOOD 11:28 AM [place] [facility] Comment: Testin g performed by [...] Aug 07, 2021 11:18 AM Reporting Lab: [facility] [address] [facility] [address] Performing Lab: [facility] [address] [facility] [address] HEMOGLOBIN A1C 4.7 4.0-5.6 Aug 07, 2021 11:28 [facility] LIVER FUNCTION Specimen Typ e: SERUM AM [facility] No comment enter ed. Ordering Provid er: DIMITRI SCRUGGS Report Released Date/Time: Aug 07, 2021 11:18 AM Reporting Lab: [facility] [address] [facility] [address] Performing Lab: [facility] [address] [facility] [address] PROTEIN,TOTAL 7.4 6.0-8.3 ALBUMIN 4.3 3.5-5.0 ALKALINE PHOSPHATASE 62 40-150 AST 26 5-34 ALT 27 0-55 BILIRUBIN, TOTAL 1.0 0.2-1.2 Aug 07, 2021 11:28 AM [facility] CBC Specimen Type: BLOOD HCS No comment enter ed. Ordering Provid er: DIMITRI SCRUGGS Report Released Date/Time: Aug 07, 2021 11:18 AM Reporting Lab: [facility] [address] [facility] [address] Performing Lab: [facility] [address] [facility] [address] WBC 4.66 4.50-11.00 RBC 5.38 4.23-5.66 HGB [...] 23, 2021 02:30 PM VA-TOBACCO NEVER USED [facility] NTRL [facility] [place] [facility] Encounter Notes: All associated encounter notes This section contains the clinical notes associated to the Encounter. Date/Time Encounter Note(s) Provider Source Aug 16, 2021 09:48 AM TELEPHONE ENCOUNTER NOTE: JUANITA BESS [place] [facility] LOCAL TITLE: VISN 1 CCC ACTION REQUIRED [place] [facility] STANDARD TITLE: TELEPHONE ENCOUNTER NOTE DATE OF NOTE: AUG 16, 2021@09:48:14 ENTRY DATE: AUG 16, 2021@09:55:30 AUTHOR: JUANITA BESS EXP COSIGNER: URGENCY: STATUS: COMPLETED VISN 1 CCC ACTION REQUIRED Has ADDENDA The patient, GEORGE MONTOYA ([id number]) called the call center. Contact Type of call: REFERRAL/CONSULT REQUEST. Caller Response: CLN CALL RESOLVED Caller Area: INA PCM Provider Info: LOCAL - [place] [facility] [facility] ([id number]) PACT: NO PACT 7 (Focus: Primary Care Only) Primary Care Provider: Dimitri Scruggs PH ONE:[id number] Broker: Nisa Prajapati PHONE :[phone] Clinical Associate: Aram Francisco PHONE:[phone] Patient Placement Coordinator: Argelia Ferreira PACT Clinical Pharmacist: Dipti Pittman PHONE:[phone] Clinical POC: Broker Nisa Prajapati PHONE:[phone] Administrative POC: Patient Placement Coordinator Argelia Ferreira MH: [facility] MHC TEAM (TC) [employer] Ramya Hernandez PHON E:[phone] Author: JUANITA BESS Evaluation/Management Code: HC PRO PHONE CALL 5- 10 MIN ([phone]). Starting at: 08/16/2021 @ 9:48:14 AM Ending at: 08/16/2021 @ 9:51:57 AM Length: 3 minutes. Chief Complaint: Not applicable to call. Class Code: Other specified counseling. Nurse Notes: Spoke to sebastien who reports that he started with co vid like symptoms on Thursday. He did a home test yesterday that was positive. He has body aches, fever and light sensitivity. His is 9 months and due any day. She had monoclonal antibody therapy at [facility] day and is feeling much better today. [facility] told vet that he qualifies for the treatment since he only has one kidney. He w as told all he needs is a doctor referral. He calls today requesting the referral. He also calls to check the status of his urology consult. Lunchroom Food Service Supervisor informed sebastien that services have been approved. He was told th at he will be contacted about an appointment but he was al so provided with the urology groups phone number so he can follow up with them. Will alert PACT to above request for monoclonal antibody therapy. Patient's Email Address: Zonia /ivelisse/ Juanita Bess RN,BSN Call Center Registered Nurse Signed: 08/16/2021 09:55 Receipt Acknowledged By: * AWAITING SIGNATURE * NISA PRAJAPATI 08/16/2021 10:04 /ivelisse/ MOHINDER OWENS LPN LICENSED PRACTICAL NURSE for ARAM FRANCISCO 08/16/2021 ADDENDUM STATUS: COMPLETED Please assist /ivelisse/ MOHINDER OWENS LPN LICENSED PRACTICAL NURSE Signed: 08/16/2021 10:04 Receipt Acknowledged By: 08/16/2021 10:10 /ivelisse/ Dimitri Scruggs DNP, VLAERIE P-BC, CNL Primary Care Nurse Practitioner 08/16/2021 ADDENDUM STATUS: COMPLETED I called referral into [facility], nrimal [place]. She will contact [place] later today or tomorrow to review treatm ent. /ivelisse/ Dimitri Scruggs DNP, STABILIZING MACHINE OPERATOR-BC, CNL Primary Care Nurse Practitioner Signed: 08/16/2021 10:11 Receipt Acknowledged By: * AWAITING SIGNATURE * MOHINDER OWENS * AWAITING SIGNATURE * NISA PRAJAPATI
--- OUTSIDE RECORDS SUMMARY | 2022-04-18 10:09 | XMS_ITS | Encounter Summary ---
:[address] [facility] Address [address] [place] [address] Support Name Relationship Address Phone TETE TRAN Unavailable [address] [facility] [phone] [address] [place] [address] THOMAS MONTOYA Unavailable [address] [facility] [place] [address] Insurance Providers: All historical and current Section [...] Ojeda [facility] Aug 03, [id number] [phone] ROSA MARIA ChapoTN PATIENT [facility] [phone] STEPHANIE JOHNSON [facility] DE[facility] Selected Encounter This section includes the information on record at [facility] for the Encounter. Date/Time Encounter Type Encounter Reason Provider Source Description Aug 28, 2021 EYE EXAM OPTOMETRY ICD-10-CM ANGI ROBERTS 03:01 PM ESTABLISH H40.013 Open DAVEY J PATIENT angle with borderline findings, low risk, bilateral with Provider Comments: Open Angle with Borderline Findings, low Risk, Bilateral IHE Encounter Template Text not used by [facility] Assessments - Encounter Diagnoses This section includes the primary and secondary diagnoses documented for the Encounter. 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 Sep 02, 2021 SECONDARY Post-traumatic OSANGI LEMA [facility] 01:06 PM stress disorder, [facility] [...] AMBULATORY - PSYCHIATRY [facility] [place] [facility] Sep 16, 2021 03:30 PM AMBULATORY - PSYCHIATRY [facility] [place] [facility] Sep 17, 2021 04:00 PM AMBULATORY [...] AMBULATORY - PSYCHIATRY [facility] [place] [facility] Oct 15, 2021 02:30 PM AMBULATORY - NONE [facility] [place] [facility] Oct 16, 2021 10:00 AM AMBULATORY - PSYCHIATRY [facility] [place] [facility] Oct 18, 2021 09:00 AM AMBULATORY - PS[facility]IATRY [facility] Oct 23, 2021 10:00 AM AMBULATORY - PSYCHIATRY [facility] Oct 30, 2021 10:00 AM AMBULATORY - PSYCHIATRY [facility] [place] [facility] December 12, 2021 04:00 PM AMBULATORY - PSYCHIATRY [facility] Dec 19, 2021 11:45 AM AMBULATORY - MEDICINE [facility] Dec 19, 2021 02:30 PM AMBULATORY - PSYCHIATRY [facility] [place] [facility] Lab Results: +/- 30 days of [...] Interpretation Reference Range Comment Aug 07, 2021 [facility] THYROID T4 FREE(FT4) Specimen T ype: SERUM 11:28 AM [place] [facility] No comment enter ed. Ordering Provid er: DIMITRI SCRUGGS Report Released Date/Time: Aug 07, 2021 11:18 AM Reporting Lab: [facility] [place] [facility] [address] [facility] [address] [address] Performing Lab: [facility] [place] [facility] [address] [facility] [address] THYROID T4 FREE(FT4) 1.36 0.6-1.6 Aug 07, 2021 [facility] VITAMIN D (25-OH) Specimen Type : SERUM 11:28 AM [place] [facility] No comment enter ed. Ordering Provid er: DIMITRI SCRUGGS Report Released Date/Time: Aug 07, 2021 11:18 AM Reporting Lab: [facility] [place] [facility] [address] [address] Performing Lab: [facility] [facility] [address] [address] VITAMIN D (25-OH) 34 20-50 Aug 07, 2021 11:28 AM [facility] [place] [facility] Specimen Type: [facility] No comment enter ed. Ordering Provid er: DIMITRI SCRUGGS Report Released Date/Time: Aug 07, 2021 11:18 AM Reporting Lab: [facility] [place] [facility] [address] [facility] [address] Performing Lab: [facility] [place] [facility] [address] [facility] [address] TSH 0.48 0.35-5.00 Aug 07, 2021 11:28 [facility] VITAMIN B12 Specimen Typ e: SERUM AM [place] [facility] No comment enter ed. Ordering Provid er: DIMITRI SCRUGGS Report Released Date/Time: Aug 07, 2021 11:18 AM Reporting [facility] [place] [facility] [address] [address] Performing Lab: [facility] [place] [address] [address] VITAMIN B12 409 200-900 Aug 07, 2021 [facility] LIPID PANEL, NON Specimen Type: SERUM 11:28 AM [facility] FASTING No comment enter ed. Ordering Provid er: DIMITRI SCRUGGS Report Released Date/Time: Aug 07, 2021 11:18 AM Reporting Lab: [facility] [place] [address] [address] Performing Lab: [facility] [address] [address] CHOLESTEROL 191 0-199 TRIGLYCERIDE 110 0-150 LDL calculated 125 0-129 CHOL/HDL 4.3 HDL CHOLESTEROL 44 40-60 Aug 07, 2021 11:28 [facility] LIVER FUNCTION Specimen Typ e: SERUM AM [facility] No comment enter ed. Ordering Provid er: DIMITRI SCRUGGS Report Released Date/Time: Aug 07, 2021 11:18 AM Reporting Lab: [facility] [place] [facility] [address] [facility] [address] [address] Performing Lab: [facility] [address] [address] PROTEIN,TOTAL 7.4 6.0-8.3 ALBUMIN 4.3 3.5-5.0 ALKALINE PHOSPHATASE 62 40-150 AST 26 5-34 ALT 27 0-55 BILIRUBIN, TOTAL 1.0 0.2-1.2 Aug 07, 2021 [facility] BASIC METABOLIC PANEL Specimen Type: SERUM 11:28 AM [facility] (non-fasting) No comment enter ed. Ordering Provid er: DIMITRI SCRUGGS Report Released Date/Time: Aug 07, 2021 11:18 AM Reporting Lab: [facility] [address] [address] Performing Lab: [facility] [address] [address] UREA NITROGEN 17 7-25 GLUCOSE 81 65-100 SODIUM 139 135-145 POTASSIUM 4.3 3.5-5.0 CHLORIDE 105 100-110 CO2 24 20-30 CREATININE, Serum 1.18 0.50-1.40 eGFR (IDMS) 72 >60 Aug 07, 2021 [facility] HEMOGLOBIN A1C PANEL Specimen T ype: BLOOD 11:28 AM [facility] Comment: Testin g performed by NGSP [...] Aug 07, 2021 11:18 AM Reporting Lab: [facility] [address] [address] Performing Lab: [facility] [address] [address] HEMOGLOBIN A1C 4.7 4.0-5.6 Aug 07, 2021 11:28 AM [facility] [place] CBC Specimen Type: BLOOD [facility]CS No comment enter ed. Ordering Provid er: DIMITRI SCRUGGS Report Released Date/Time: Aug 07, 2021 11:18 AM Reporting Lab: [facility] [address] [address] Performing Lab: [facility] [address] [address] WBC 4.66 4.50-11.00 RBC 5.38 4.23-5.66 HGB [...] 23, 2021 02:30 PM [facility] Encounter Notes: All associated encounter notes This section contains the clinical notes associated to the Encounter. Date/Time Encounter Note(s) Provider Source Aug 28, 2021 02:56 OPTOMETRY NOTE: SUNDEEP ROBERTS [facility] TRN PM LOCAL TITLE: OPTOMETRY NOTE [facility] STANDARD TITLE: OPTOMETRY NOTE DATE OF NOTE: AUG 28, 2021@14:56 ENTRY DATE: AUG 28, 2021@14:57:10 AUTHOR: NATALIE JORDAN EXP COSIGNER: SUNDEEP ROBERTS URGENCY: STATUS: COMPLETED OPTOMETRY NOTE Has ADDENDA Active problems - Computerized Problem List is t he source for the followin. Bilateral shoulder joint pain 2. 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 Low back pain 6. Benign hypertension 7. Posttraumatic stress disorder (SNOMED [place] [id number]) Active Outpatient Medications (including Supplie s): Active [...] FOR SLEEP Allergies: Patient has answered NKA All medications including th ose prescribed by outside VA's, community providers, and all OTC meds were review ed and reconciled with patient to the best of their abilities. This 31 year old MALE is see n today for F/U visit for VF and OCT imaging and IOP check. Hx of OTN and moderate cupping Chief Complaint: Pt reported to using Refresh 1x/day, has experienced a decrease in symptoms. glasses are working well for him. OHx (+/-)If Yes, explain: 1) PTSD/TBI hx with light sensitivity 2) OTN OU/glaucoma suspect 3) dry eye OU Last eye exam: Jul 11 (-) Pain: (-) RAI: (-) Diplopia: (-) Flashes: (-) Floaters: (-) Amaurosis Fugax/Tia's: (-) Eye Injury: (-) Eye Surgery: (-) TBI PERTINENT LABS: HEMOGLOBIN A1C TREND Collection DT Spec HGBA1c 08/07/2021 11:28 BLOOD 4.7 08/31/2020 11:15 BLOOD 4.5 08/23/2019 11:41 BLOOD 4.6 06/07/2018 10:05 BLOOD 4.8 FOHx: (-) Glaucoma/ARMD/Blindness (-) Smoker/Length of Time/PPD: Current Rx with last BCVA: OD: +0.50 -1.00 x 175 20/20 OS: +0.50 -0.75 x 180 20/20 DVA ( )sc ( x )cc OD: 20/20 OS: 20/20 Pupils: PERRL (-)APD EOMs: SAFE OU, (-)Pain/Diplopia CVF (facial, peripheral): FTFC OU All the above pe rformed by student, reviewed by attending Anterior segment: Performed by student, repeated by attending Lids: clear OU Conj: white and quiet OU Cornea: clear OU, (-) staining, no K spindle OU AC: 4x4 OU, no cells OU Iris: flat and clear OU, (-) TID OU Lens: clear OU, (-) PXE Tonometry: Performed by student, reviewed by attending OD 18 mmHg OS 18 mmHg Time: 3:23 pm pt was not dilated during this visit Fundus exam: Dilated: Non dilated: xxx Dilating Drops: 1GTT 1 % Tropicamide OU & 1GTT 2 .5% Phenylephrine OU (Pt. ed. on side effects, dilation warning given and verbal consent obtained) Patient advised not to drive if they feel they h ave any symptoms which could affect their ability to drive safely. Patient ad vised not to engage in any activities which could put themselves or others at risk if they feel they have any symptoms which could affect their ability to perform those activities safely. Performed by student, repeated by attending Vit: clear OU C/D: 0.50/0.50 OD, 0.45/0.45 OS, healthy colour , (-) drance heme, (-) notching Macula: flat and clear OU, (-) SRF, (-) SRH, (- ) macular edema PPole: clear, (-) hemorrhages A/V: 2/3 Vessels: normal caliber OU Periph: flat and intact (-)holes, tears, detach ments 360 OU Impression: 1) PTSD/TBI hx with light sensitivity - advised to continue glasses with various tint s for indoors and outdoors 2)Low risk open-angle glaucoma suspect OU. Moder ate cupping with normotensive IOP today and essentially normal VF and OCT. No evidence of pigment dispersion or pseudoexfoliation OU. No [...] follow-up appoi ntments -Continue to monitor annually 3) dry eye OU - Advised to continue using Refresh qid OU rath er than Vispatrick Return to Clinic 1 year for CEE or earlier PRN Patient Education: Glaucoma: Patient was educated regarding glaucoma/glaucoma suspect [...] he patient's ability to participate in testing. /ivelisse/ Sundeep Roberts OD Fee Basis Major Account Manager Signed: 08/28/2021 16:02 for NATALIE JORDAN OPTOMETRY STUDENT /ivelisse/ Sundeep Roberts OD Fee Basis Major Account Manager Cosigned: 08/28/2021 16:02 08/28/2021 ADDENDUM STATUS: COMPLETED I reviewed all findings with the tray checker. I perfo rmed the slit lamp exam. Low risk for glaucoma given today's IOP, VF and OCT. Progress note reviewed and edited as needed. I establis hed the plan of care and educated the patient about his conditions. /ivelisse/ Sundeep Roberts OD Fee Basis Major Account Manager Signed: 08/28/2021 16:03
--- OUTSIDE RECORDS SUMMARY | 2022-04-18 10:09 | XMS_ITS | Encounter Summary ---
:1990 Author Organization Department of [facility] rs Address [address] [place] [address] Support Name Relationship Address Phone TETE TRAN Unavailable [address] [place] [address] THOMAS MONTOYA Unavailable 6 [facility] [place] [address] Insurance Providers: All historical and current Section [...] [facility] Aug 03, [id number] [phone] ROSA MARIA ChapoNY [facility]IENT [facility] [id number] STEPHANIE JOHNSON [facility] E DEPT Selected Encounter This section includes the information on record at [place] for the Encounter. Date/Time Encounter Type Encounter Reason Provider Source Description Aug 13, 2021 INTRAORAL DENTAL ICD-10-CM K02.62 URVASHI DE [place] 07:30 AM PERIAPICAL FIRST Dental caries on smooth surface penetrating into dentin with Provider Comments: Dental caries on smooth surface penetrating into dentin IHE Encounter Template Text not used by [place] Assessments - Encounter Diagnoses This section includes the primary and secondary diagnoses documented for the Encounter. Date/Time Primary/Secondary Diagnosis Name Provider Source Diagnosis Aug 13, 2021 PRIMARY Dental caries on URVASHI DE LEON [facility] WS TRN 07:33 PM smooth surface [place] [facility] penetrating into dentin Aug 13, 2021 SECONDARY Fractured dental [facility] TRN 07:33 PM restorative [place] [facility] material with loss of material Plan of Treatment: Future Appointments (+ 6 months) and Future Tests (+/- 45 days) The Plan of Treatment section includes future care activities for the patient from all [facility] treatmentfaunc medical centerities. This section includes future appointments [...] - PSYCHIATRY [facility] [place] [facility] Aug 28, 2021 10:20 AM AMBULATORY - MEDICINE [facility] [place] [facility] Aug 28, 2021 03:00 PM AMBULATORY - MEDICINE [facility] [place] [facility] Aug 28, 2021 03:01 PM AMBULATORY - MEDICINE [facility] [place] [facility] Aug 28, 2021 03:15 PM AMBULATORY - MEDICINE [facility] [place] [facility] Sep 03, 2021 04:00 PM AMBULATORY - PSYCHIATRY [facility] [place] [facility] Sep 16, 2021 03:30 PM AMBULATORY - PSYCHIATRY [facility] [place] [facility] Sep 17, 2021 04:00 PM AMBULATORY - PSYCHIATRY [facility] [place] [facility] Sep 24, 2021 09:45 AM AMBULATORY - NONE [facility] [place] [facility] Sep 25, 2021 09:00 AM AMBULATORY - PSYCHIATRY [facility] [place] [facility] Sep 26, 2021 04:00 PM AMBULATORY - PSYCHIATRY [facility] [place] [facility] Oct 01, 2021 07:00 AM AMBULATORY - PSYCHIATRY [facility] [place] [facility] Oct 02, 2021 10:00 AM AMBULATORY - PSYCHIATRY [facility] [place] [facility] Oct 04, 2021 09:00 AM AMBULATORY - PSYCHIATRY [facility] [place] [facility] Oct 07, 2021 11:00 AM AMBULATORY - PSYCHIATRY [facility] [place] [facility] Oct 08, 2021 09:00 AM AMBULATORY - PSYCHIATRY [facility] [place] [facility] Oct 09, 2021 10:00 AM [...] [facility] [place] [facility] [address] [facility] [address] Performing Lab: [facility] [place] [facility] [address] [facility] [address] THYROID T4 FREE(FT4) 1.36 0.6-1.6 Aug 07, 2021 [facility] VITAMIN D (25-[place]) Specimen Type : SERUM 11:28 AM [place] [facility] No comment enter ed. Ordering Provid er: DIMITRI SCRUGGS Report Released Date/Time: Aug 07, 2021 11:18 AM Reporting Lab: [facility] [place] [facility] [address] [facility] [address] Performing Lab: [facility] [place] [facility] [address] [facility] [address] VITAMIN D (25-OH) 34 20-50 Aug 07, 2021 11:28 AM [facility] [place] TSH Specimen Type: SERUM [facility] No comment enter ed. Ordering Provid er: DIMITRI SCRUGGS Report Released Date/Time: Aug 07, 2021 11:18 AM Reporting Lab: [facility] [place] [facility] [address] [facility] [address] Performing Lab: [place] [facility] [place] [facility] [address] [facility] [address] TSH 0.48 0.35-5.00 Aug 07, 2021 [facility] LIPID PANEL, NON Specimen Type: SERUM 11:28 AM [place] [facility] FASTING No comment enter ed. Ordering Provid er: DIMITRI SCRUGGS Report Released Date/Time: Aug 07, 2021 11:18 AM Reporting Lab: [place] [facility] [place] [facility] [address] [facility] [address] Performing Lab: [facility] [place] [facility] [address] [facility] [address] CHOLESTEROL 191 0-199 TRIGLYCERIDE 110 0-150 LDL calculated 125 0-129 CHOL/HDL 4.3 HDL CHOLESTEROL 44 40-60 Aug 07, 2021 [facility] BASIC METABOLIC PANEL Specimen Type: SERUM 11:28 AM [place] [facility] (non-fasting) No comment enter ed. Ordering Provid er: DIMITRI SCRUGGS Report Released Date/Time: Aug 07, 2021 11:18 AM Reporting Lab: [facility] [place] [facility] [address] [facility] [address] Performing Lab: [place] [facility] [place] [facility] [address] [facility] [address] UREA NITROGEN 17 7-25 GLUCOSE 81 65-100 SODIUM 139 135-145 POTASSIUM 4.3 3.5-5.0 CHLORIDE 105 100-110 CO2 24 20-30 CREATININE, Serum 1.18 0.50-1.40 eGFR (IDMS) 72 >60 Aug 07, 2021 11:28 [place] [facility] VITAMIN B12 Specimen Typ e: SERUM AM [place] [facility] No comment enter ed. Ordering Provid er: DIMITRI SCRUGGS Report Released Date/Time: Aug 07, 2021 11:18 AM Reporting Lab: [facility] [place] [facility] [address] [facility] [address] Performing Lab: [place] [facility] [place] [facility] [address] [facility] [address] VITAMIN B12 409 200-900 Aug 07, 2021 11:28 [facility] LIVER FUNCTION Specimen Typ e: SERUM AM [place] [facility] No comment enter ed. Ordering Provid er: DIMITRI SCRUGGS Report Released Date/Time: Aug 07, 2021 11:18 AM Reporting Lab: [facility] [place] [facility] [address] [facility] [address] Performing Lab: [facility] [place] [facility] [address] [facility] [address] PROTEIN,TOTAL 7.4 6.0-8.3 ALBUMIN 4.3 3.5-5.0 ALKALINE PHOSPHATASE 62 40-150 AST 26 5-34 ALT 27 0-55 BILIRUBIN, TOTAL 1.0 0.2-1.2 Aug 07, 2021 [facility] HEMOGLOBIN A1C PANEL Specimen T ype: BLOOD 11:28 AM [facility] Comment: Testin g performed by NGSP [...] Aug 07, 2021 11:18 AM Reporting Lab: [facility] [place] [facility] [address] [facility] [address] Performing Lab: [facility] [place] [facility] [address] [facility] [address] HEMOGLOBIN A1C 4.7 4.0-5.6 Aug 07, 2021 11:28 AM [facility] CBC Specimen Type: BLOOD [facility] No comment enter ed. Ordering Provid er: DIMITRI SCRUGGS Report Released Date/Time: Aug 07, 2021 11:18 AM Reporting Lab: [facility] [place] [facility] [address] [facility] [address] Performing Lab: [facility] [place] [facility] [address] [facility] [address] WBC 4.66 4.50-11.00 RBC 5.38 4.23-5.66 HGB 16.3 12.8-17 HCT 47.2 39.2-50.4 MCV 87.7 82-99 MCHC 34.5 30.8-35.1 PLT 247 140-360 RDW-CV 11.9 L 12.0-16.0 MCH 30.3 26.2-32.6 Vital Signs: All taken on the encounter date This section contains inpatient and outpatient Vital Signs collected on the date of the Encounter. Date/Time Temperature Pulse Blood Respiratory SP02 Pain Height Weight Aleksandr dy Source Pressure Rate Mass Index Aug 13 127/67 97 % 7 [facility] 2021 07:53 /min mm[Hg] [facility] AM [facility] [place] [facility] Social History: Smoking [...] NEVER USED [facility] C [facility]TRL [facility] [place] [facility] Encounter Notes: All associated encounter notes This section contains the clinical notes associated to the Encounter. Date/Time Encounter Note(s) Provider Source Aug 13, 2021 07:33 PM DENTISTRY CONSULT: URVASHI DE [place] [facility] [place] [facility] LOCAL TITLE: CONSULT REPORT/DENTAL [place] [facility] STANDARD TITLE: DENTISTRY CONSULT DATE OF NOTE: AUG 13, 2021@19:33 ENTRY DATE: AUG 13, 2021@19:33:24 AUTHOR: URVASHI DE [place] EXP COSIGNER: URGENCY: STATUS: COMPLETED Please see dental note on 08/13/2021. /ivelisse/ URVASHI DE [place] DMD Staff Dentist Signed: 08/13/2021 19:33 Aug 13, 2021 07:27 PM DENTISTRY NOTE: URVASHI DE [place] [facility] LOCAL TITLE: DENTAL NOTE [place] [facility] STANDARD TITLE: DENTISTRY NOTE DATE OF NOTE: AUG 13, 2021@19:27 ENTRY DATE: AUG 13, 2021@19:33:08 AUTHOR: URVASHI DE [place] EXP COSIGNER: URGENCY: STATUS: COMPLETED Patient Name: GEORGE MONTOYA, : [birth year], Age: 31 Visit: S: Aug 13, 2021@07:30 CWM/NO/DENTAL/DMD1 AM. Primary PCE Diagnosis: K02.62 (Dental caries on smooth surface penetrating into dentin). Dental Category: 15-OPC, Class IV. Treatment St atus: Active. Completed Care: (D0140) LIMIT ORAL EVAL PROBLM FOCUS. DX: K02.62 Dental Caries on Smooth Surface Pene trating into Dentin DX: K08.531 Fractured Dental Restorative Materi al with Loss of Material (D0220) INTRAORAL PERIAPICAL FIRST. Tooth: 30. DX: K02.62 Dental Caries on Smooth Surface Pene trating into Dentin DX: K08.531 Fractured Dental Restorative Materi al with Loss of Material Presentation/Chief Complaint: Patient presented to dental clinic for limited oral evaluation. Pain in lower right back tooth (points to tooth #30), food gets stuck, sensitive to cold. Time out performed. Used full name and willow e. Checked and confirmed sterilization monitors in instrument packs. Answers to COVID-19 screening questions are no. No reported symptoms of COVID-19. Patient rinsed with [facility] mouthwash at beginning of appointment. Vital Signs: Dental Pain (0-10): 3 08/13/2021 07:53 General Pain (0-10): 7 08/13/2021 07:53 Blood Pressure (mmHg): 127/67 08/13/2021 07:53 Pulse (BPM): 65 08/13/2021 07:53 POX: 97% 08/13/2021 07:53 Reviewed medical history. Medications were revie wed and reconciled within scope of dental service. All dental-related medi cations are up to date. Prescribed the following today: SODIUM FLUORIDE (PREVIDENT BOOSTER) TOOTHPASTE 1 .1% BRUSH SMALL AMOUNT TO TEETH AT BEDTIME DIRECT ED FOR TWO MINUTES, IN PLACE OF YOUR REGULAR TOOTHPASTE. AFTER USE, SPI T OUT. FOR PREVENTION OF DENTAL CARIES AND SENSITIVITY. Quantity: 100 ml Refills: 3 I gave education about this medication and the V eteran verbalized understanding. Intraoral and Extraoral Screening Exam Findings: 08/13/2021 Head and neck assessment with oral c ancer screening is negative: no apparent pathology noted. Oral soft tissues appear within normal limits No swelling. Oral Examination: Dental Examination: Caries: 30(M). Chipped: 30(D). Cold test - responsive to cold, non-lingering. Existing Dental Restorations: Restored: 30(DO) Resin Assessment/Plan: Tooth #30: Distal-occlusal portion fractured off , caries Referred to assigned dentist for further treatm ent planning Final treatment plan to be completed at a later time Planned Procedures: (D0150) COMPREHENSVE ORAL EVALUATION: . DX: (). Phase 1 (D2393) POST 3 SRFC RESINBASED CMPST: 30(MOD). DX: (). Reviewed findings, risks/benefits/alternatives associated with the proposed treatment plan. Patient indicated he u nderstood and agreed to treatment plan as discussed. Answered all quest ions. Advised him to call if he has any concerns. Disposition: Next dental visit: (See Dr. Yates's previous note) Already has appo intment with Dr. Yates on 09/24/21 9:45. However, it is not the 120 mi n that he had asked for to do filling, comp exam, prophy. Appointme nt is for 75 minutes. I discussed this with Dr. Yates and he said he w ill plan to restore #30 at that appointment and have patient return for comprehensive oral evaluation. Patient to return to dental clinic for continui ng care. - - - - - - - - - - - - - - - - - - - - - - - - - - - - - - /ivelisse/ URVASHI DE [place] DMD Staff Dentist Signed: 08/13/2021 19:33
--- OUTSIDE RECORDS SUMMARY | 2022-04-18 10:09 | XMS_ITS | Encounter Summary ---
:[address] [facility] Address [address] [place] [address] Support Name Relationship Address Phone TETE TRAN Unavailable [address] [place] [address] THOMAS MONTOYA Unavailable 6 [facility] [address] Insurance Providers: All historical and current Section Date Range: From patient's date of to the date document was created.This section includes the names of all active insurance providers for the patient. Insurance Type of Plan Start of End of Group Member Insurance Policy P atient's Provider Coverage Name Policy Policy Number ID Provider's Ojeda's Relationship Coverage Coverage Telephone Name to Policy Number Ojeda [facility] [place] Aug 03, [id number] [phone] ROSA MARIA ChapoOH PATIENT BEE GIMENEZ 2019 [id number] STEPHANIE JOHNSON [facility] DEPT Selected Encounter This section includes the information on record at [facility] for the Encounter. Date/Time Encounter Type Encounter Reason Provider Source Description Aug 28, 2021 CMPTR OPHTH IMG OPTOMETRY ICD-10-CM ANGI ROBERTS 03:15 PM OPTIC NERVE H40.013 Open DAVEY J angle with borderline findings, low risk, bilateral with Provider Comments: Glaucoma Suspect,Low Risk,Bilateral IHE Encounter Template Text not used by [facility] Assessments - Encounter Diagnoses This section includes the primary and secondary diagnoses documented for the Encounter. Date/Time Primary/Secondary Diagnosis Name Provider Source Diagnosis Aug 28, 2021 PRIMARY Open angle with ANGI ROBERTS [place] CN[facility]L W STR[facility] 04:08 PM borderline DAVEY J [place] [facility] findings, low risk, bilateral Plan of Treatment: Future Appointments (+ 6 months) and Future Tests (+/- 45 days) The Plan of Treatment section includes future care activities for the patient from all VA treatmentfacarteret health careities. This section includes future appointments and future [...] AMBULATORY - PSYCHIATRY [facility] [place] [facility] Sep 16, 2021 03:30 PM AMBULATORY - PSYCHIATRY [facility] [place] [facility] Sep 17, 2021 04:00 PM AMBULATORY - PSYCHIATRY [facility] [place] [facility] Sep 24, 2021 09:45 AM AMBULATORY - NONE [facility] [place] [facility] Sep 25, 2021 09:00 AM AMBULATORY - PSYCHIATRY [facility] [place] [facility] Sep 26, 2021 04:00 PM AMBULATORY - PSYCHIATRY [facility] [place] [facility] Oct 01, 2021 07:00 AM AMBULATORY - PSYCHIATRY [facility] [place] [facility] Oct 02, 2021 10:00 AM AMBULATORY - PSYCHIATRY [facility] [place] [facility] Oct 04, 2021 09:00 AM AMBULATORY - PSYCHIATRY [facility] [place] [facility] Oct 07, 2021 11:00 AM AMBULATORY - PSYCHIATRY [facility] [place] [facility] Oct 08, 2021 09:00 AM AMBULATORY - PSYCHIATRY [facility] [place] [facility] Oct 09, 2021 10:00 AM AMBULATORY - PSYCHIATRY [facility] [place] [facility] Oct 15, 2021 02:30 PM AMBULATORY - NONE [facility] [place] [facility] Oct 16, 2021 10:00 AM AMBULATORY - PSYCHIATRY [facility] [place] [facility] Oct 18, 2021 09:00 AM AMBULATORY - PSYCHIATRY [facility] [place] [facility] Oct 23, 2021 10:00 AM AMBULATORY - PSYCHIATRY [facility] [place] [facility] Oct 30, 2021 10:00 AM AMBULATORY - PSYCHIATRY [facility] [place] [facility] December 12, 2021 04:00 PM AMBULATORY - PSYCHIATRY PR [facility] [place] [facility] Dec 19, 2021 11:45 AM AMBULATORY - MEDICINE [facility] [place] [facility] Dec 19, 2021 02:30 PM AMBULATORY - PSYCHIATRY PR [facility] [place] [facility] Lab Results: +/- 30 days of [...] Aug 07, 2021 11:18 AM Reporting Lab: [facility] [place] [facility] [address] [facility] [address] Performing Lab: [facility] [place] [facility] [address] [facility] [address] THYROID T4 FREE(FT4) 1.36 0.6-1.6 Aug 07, 2021 [facility] VITAMIN D (25-OH) Specimen Type : SERUM 11:28 AM [place] [facility] No comment enter ed. Ordering Provid er: DIMITRI SCRUGGS Report Released Date/Time: Aug 07, 2021 11:18 AM Reporting Lab: [facility] [place] [facility] [address] [facility] [address] Performing Lab: [facility] [place] [facility] [address] [facility] [address] VITAMIN D (25-OH) 34 20-50 Aug 07, 2021 11:28 AM [facility] [place] TSH Specimen Type: SERUM HCS No comment enter ed. Ordering Provid er: DIMITRI SCRUGGS Report Released Date/Time: Aug 07, 2021 11:18 AM Reporting Lab: [facility] [place] [facility] [address] [facility] [address] Performing Lab: [facility] [address] [facility] [address] TSH 0.48 0.35-5.00 Aug 07, 2021 11:28 [facility] VITAMIN B12 Specimen Typ e: SERUM AM [facility] No comment enter ed. Ordering Provid er: DIMITRI SCRUGGS Report Released Date/Time: Aug 07, 2021 11:18 AM Reporting Lab: [facility] [address] [facility] [address] Performing Lab: [facility] [address] [facility] [address] VITAMIN B12 409 200-900 Aug 07, 2021 11:28 [facility] LIVER FUNCTION Specimen Typ e: SERUM AM [facility] No comment enter ed. Ordering Provid er: DIMITRI SCRUGGS Report Released Date/Time: Aug 07, 2021 11:18 AM Reporting Lab: [facility] [address] [facility] [address] Performing Lab: [facility] [address] [facility] [address] PROTEIN,TOTAL 7.4 6.0-8.3 ALBUMIN 4.3 3.5-5.0 ALKALINE PHOSPHATASE 62 40-150 AST 26 5-34 ALT 27 0-55 BILIRUBIN, TOTAL 1.0 0.2-1.2 Aug 07, 2021 [facility] HEMOGLOBIN A1C PANEL Specimen T ype: [...] Aug 07, 2021 11:18 AM Reporting Lab: [facility] [address] [facility] [address] Performing Lab: [facility] [place] [facility] [address] [facility] [address] HEMOGLOBIN A1C 4.7 4.0-5.6 Aug 07, 2021 [facility] LIPID PANEL, NON Specimen Type: SERUM 11:28 AM [place] [facility] FASTING No comment enter ed. Ordering Provid er: DIMITRI SCRUGGS Report Released Date/Time: Aug 07, 2021 11:18 AM Reporting Lab: [facility] [place] [facility] [address] [facility] [address] Performing Lab: [facility] [place] [facility] [address] [facility] [address] CHOLESTEROL 191 0-199 TRIGLYCERIDE 110 0-150 LDL calculated 125 0-129 CHOL/HDL 4.3 HDL CHOLESTEROL 44 40-60 Aug 07, 2021 [facility] BASIC METABOLIC PANEL Specimen Type: SERUM 11:28 AM [place] [facility] (non-fasting) No comment enter ed. Ordering Provid er: DIMITRI SCRUGGS Report Released Date/Time: Aug 07, 2021 11:18 AM Reporting Lab: [facility] [place] [facility] [address] [facility] [address] Performing Lab: [facility] [place] [facility] [address] [facility] [address] UREA NITROGEN 17 7-25 GLUCOSE 81 65-100 SODIUM 139 135-145 POTASSIUM 4.3 3.5-5.0 CHLORIDE 105 100-110 CO2 24 20-30 CREATININE, Serum 1.18 0.50-1.40 eGFR (IDMS) 72 >60 Aug 07, 2021 11:28 AM PR [facility] [place] CBC Specimen Type: BLOOD HCS No comment enter ed. Ordering Provid er: DIMITRI SCRUGGS Report Released Date/Time: Aug 07, 2021 11:18 AM Reporting Lab: [facility] [place] [facility] [address] [facility] [address] Performing Lab: [facility] [place] [facility] [address] [facility] [address] WBC 4.66 4.50-11.00 RBC 5.38 4.23-5.66 HGB [...] 23, 2021 02:30 PM VA-TOBACCO NEVER USED [facility] NTRL WSN [facility] Encounter Notes: All associated encounter notes This section contains the clinical notes associated to the Encounter. Date/Time Encounter Note(s) Provider Source Aug 28, 2021 03:55 OPTOMETRY CONS[facility]: [facility]EP ROBERTS [facility] TITLE: CONSULT REPORT/OPTOMETRY OCT J [facility] STANDARD TITLE: OPTOMETRY CONSULT DATE OF NOTE: AUG 28, 2021@15:55 ENTRY DATE: AUG 28, 2021@15:55:40 AUTHOR: NATALIE JORDAN EXP COSIGNER: SUNDEEP ROBERTS URGENCY: STATUS: COMPLETED CONSULT REPORT/OPTOMETRY OCT Has ADDENDA * OPTIC NERVE OCT REPORT: OCT of optic nerve obtained for patient with Low risk open-angle glaucoma suspect OU === OD: Signal Strength 10/10 Average RNFL Thickness: 87 um Disc Area: 1.91 mm2 vertical C/D 0.64 SECTORS: normal all sectors in 4 slice, mild th inning in temporal quadrant (55) in small slice OS: Signal Strength 9/10 Average RNFL Thickness:87 Disc Area:1.00 vertical C/D 0.56 SECTORS: normal all sectors in 4 slice, mild th inning in temporal quadrant (57) in small slice This is the baseline OCT. === ASSESSMENT/PLAN: 1) Low risk open-angle glaucoma suspect OU. OCT essentially normal. Moderate cupping with normotensive IOP.No evidence of pigment dispersion or pseudoexfoliation OU. [...] annually /ivelisse/ Sundeep Roberts OD Fee Basis Building Drafting Officer Signed: 08/28/2021 16:07 for NATALIE JORDAN OPTOMETRY STUDENT /ivelisse/ Sundeep Roberts OD Fee Basis Building Drafting Officer Cosigned: 08/28/2021 16:07 08/28/2021 ADDENDUM STATUS: COMPLETED I reviewed the OCT and agree with assessment and plan /ivelisse/ Sundeep Roberts OD Fee Basis Building Drafting Officer Signed: 08/28/2021 16:08
--- OUTSIDE RECORDS SUMMARY | 2022-04-18 10:10 | XMS_ITS | Encounter Summary ---
:1990 Author Organization Department of [facility] rs Address [address] [place] [address] Support Name Relationship Address Phone TETE TRAN Unavailable [address] [facility] [phone] [address] [place] [address] THOMAS MONTOYA Unavailable [address] [facility] [address] Insurance Providers: All historical and current Section [...] Name to Policy Number [facility] Aug 03, [id number] [phone] ALIAROSINA Mane PATIENT BEE GIMENEZ [id number] STEPHANIE JOHNSON [facility] DEPT Selected Encounter This section includes the information on record at [facility] for the Encounter. Date/Time Encounter Type Encounter Reason Provider Source Description Jul 25, 2021 PSYTX W PT W MENTAL HEALTH ICD-10-CM F43.10 JOSE,CLEMENT O 02:30 PM E/M 30 MIN CLINIC - IND Post-traumatic stress disorder, unspecified with Provider Comments: Posttraumatic stress disorder ([facility] [id number]) IHE Encounter Template Text not used by [facility] Assessments - Encounter Diagnoses This section includes the primary and secondary diagnoses documented for the Encounter. Date/Time Primary/Secondary Diagnosis Name Provider Source Diagnosis Jul 25, 2021 PRIMARY Post-traumatic JOSE,CLEMENT O [facility] RN 03:21 PM stress disorder, [facility] unspecified Jul 25, 2021 SECONDARY Major depressive JOSE,CLEMENT O [facility] W [facility] 03:21 PM disorder, [place] [facility] recurrent, moderate Plan of Treatment: Future Appointments (+ 6 months) and Future Tests (+/- 45 days) The Plan of Treatment section includes future care activities for the patient from all [facility] treatmentfacilities. This section includes future appointments and future orders which are active, pending orscheduled.Future Appointments This section includes appointments that were scheduled to occur 6 months from the date of the Encounter, up to a maximum of 20 appointments. The data comes from all MS treatment facilities. Appointment Date/Time Appointment Type Appointment Facili ty Name Jul 26, 2021 09:00 AM AMBULATORY - MEDICINE [facility] [place] [facility] Jul 30, 2021 11:30 AM AMBULATORY - PSYCHIATRY [facility] [place] [facility] Aug 07, 2021 11:00 AM AMBULATORY - MEDICINE [facility] [place] [facility] Aug 13, 2021 07:30 AM AMBULATORY - NONE [facility] [place] [facility] Aug 19, 2021 02:00 PM AMBULATORY - PSYCHIATRY [facility] [place] [facility] Aug 28, 2021 10:20 AM AMBULATORY - MEDICINE [facility] [place] [facility] Aug 28, 2021 03:00 PM AMBULATORY - MEDICINE [facility] [place] [facility] Aug 28, 2021 03:01 PM AMBULATORY - MEDICINE [facility] [place] [facility] Aug 28, 2021 03:15 PM AMBULATORY - MEDICINE [facility] [place] [facility] Sep 03, 2021 04:00 PM AMBULATORY - PSYCHIATRY [facility] [place] [facility] Sep 16, 2021 03:30 PM AMBULATORY - PSYCHIATRY [facility] [place] [facility] Sep 17, 2021 04:00 PM AMBULATORY - PSYCHIATRY [facility] [place] [facility] Sep 24, 2021 09:45 AM AMBULATORY - NONE [facility] [place] [facility] Sep 25, 2021 09:00 AM AMBULATORY - PSYCHIATRY [facility] [place] [facility] Sep 26, 2021 04:00 PM AMBULATORY - PSYCHIATRY [facility] [place] [facility] Oct 01, 2021 07:00 AM AMBULATORY - [...] and Hematology Lab Results on record with MS for the patient. Radiology Reports and Pathology [...] CNTRL [facility] [address] [facility] [address] Performing Lab: [facility] [address] [facility] [address] THYROID T4 FREE(FT4) 1.36 0.6-1.6 Aug 07, 2021 [facility] VITAMIN D (25-OH) Specimen Type : SERUM 11:28 AM [facility] No comment enter ed. Ordering Provid er: DIMITRI SCRUGGS Report Released Date/Time: Aug 07, 2021 11:18 AM Reporting Lab: [facility] [address] [facility] [address] Performing Lab: [facility] [address] [facility] [address] VITAMIN D (25-OH) 34 20-50 Aug 07, 2021 11:28 AM [facility] [place] TSH Specimen Type: SERUM HCS No comment enter ed. Ordering Provid er: DIMITRI SCRUGGS Report Released Date/Time: Aug 07, 2021 11:18 AM Reporting Lab: [facility] [address] [facility] [address] Performing Lab: [facility] [address] [facility] [address] TSH 0.48 0.35-5.00 Aug 07, 2021 11:28 [facility] VITAMIN B12 Specimen Typ e: SERUM AM [place] [facility] No comment enter ed. Ordering Provid er: DIMITRI SCRUGGS Report Released Date/Time: Aug 07, 2021 11:18 AM Reporting Lab: [facility] [address] [facility] [address] Performing Lab: [facility] [address] [facility] [address] VITAMIN B12 409 200-900 Aug 07, 2021 [facility] LIPID PANEL, NON Specimen Type: SERUM 11:28 AM [place] [facility] FASTING No comment enter ed. Ordering Provid er: DIMITRI SCRUGGS Report Released Date/Time: Aug 07, 2021 11:18 AM Reporting Lab: [facility] [address] [facility] [address] Performing Lab: [facility] [address] [facility] [address] CHOLESTEROL 191 0-199 TRIGLYCERIDE 110 0-150 LDL calculated 125 0-129 CHOL/HDL 4.3 HDL CHOLESTEROL 44 40-60 Aug 07, 2021 11:28 [facility] LIVER FUNCTION Specimen Typ e: SERUM AM [place] [facility] No comment enter ed. Ordering Provid er: DIMITRI SCRUGGS Report Released Date/Time: Aug 07, 2021 11:18 AM Reporting Lab: [facility] [address] [facility] [address] Performing Lab: [facility] [address] [facility] [address] PROTEIN,TOTAL 7.4 6.0-8.3 ALBUMIN 4.3 3.5-5.0 ALKALINE PHOSPHATASE 62 40-150 AST 26 5-34 ALT 27 0-55 BILIRUBIN, TOTAL 1.0 0.2-1.2 Aug 07, 2021 [facility] BASIC METABOLIC PANEL Specimen Type: SERUM 11:28 AM [facility] (non-fasting) No comment enter ed. Ordering Provid er: DIMITRI SCRUGGS Report Released Date/Time: Aug 07, 2021 11:18 AM Reporting Lab: [facility] [address] [facility] [address] Performing Lab: [facility] [address] [facility] [address] UREA NITROGEN 17 7-25 GLUCOSE 81 65-100 SODIUM 139 135-145 POTASSIUM 4.3 3.5-5.0 CHLORIDE 105 100-110 CO2 24 20-30 CREATININE, Serum 1.18 0.50-1.40 eGFR (IDMS) 72 >60 Aug 07, 2021 [facility] HEMOGLOBIN A1C PANEL Specimen T ype: BLOOD 11:28 AM [place] [facility] Comment: Testin g performed by NGSP certified [...] 2021 11:18 AM Reporting Lab: [facility] [place] [address] [facility] [address] Performing Lab: [facility] [place] [address] [facility] [address] HEMOGLOBIN A1C 4.7 4.0-5.6 Aug 07, 2021 11:28 AM [facility] [place] CBC Specimen Type: BLOOD HCS No comment enter ed. Ordering Provid er: DIMITRI SCRUGGS Report Released Date/Time: Aug 07, 2021 11:18 AM Reporting Lab: [facility] [place] [facility] [address] [facility] [address] Performing Lab: [facility] [place] [facility] [address] [facility] [place] [address] WBC 4.66 4.50-11.00 RBC 5.38 4.23-5.66 HGB 16.3 12.8-17 HCT 47.2 39.2-50.4 MCV 87.7 82-99 MCHC 34.5 30.8-35.1 PLT 247 140-360 RDW-CV 11.9 L 12.0-16.0 MCH 30.3 26.2-32.6 Social History: Smoking Status (Most current) and Tobacco Use (All prior to encounter date) This section includes the most current, and the historical, smoking and tobacco-related health factors from the MS facility where the Encounter took place.Current Smoking Status This section includes the most current smoking, or tobacco-related health factor, from the MS facility where the Encounter took place. Date/Time Current Smoking Status Comment Facility May 23, 2021 02:30 PM VA-TOBACCO NEVER USED [facility] Encounter Notes: All associated encounter notes This section contains the clinical notes associated to the Encounter. 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 Bilateral shoulder joint pain 2. 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 Low back pain 6. Benign hypertension 7. Posttraumatic stress disorder ([place] [address] [id number]) Active Outpatient Medications (including Supplie s): Active [...] PTSD SYMPTOMS. DOSE INCREASE FROM 6 MG. Assigned/Established Prescriber: Dr Stuart. Note: Wapiti was seen via the walk-in a ppointment and 2 identifiers were used accordingly. Confidentiality policy reviewed and patient verbalized consent for session. CC: Wapiti presented with complaint of difficul ty sleeping for the past 2 weeks. Reported having s hannah problem in the past and tried on Quetiapine and Traz odone but believes the Trazodone worked better while the Seroquel made him anxiou s and shakky. Requesting some medication to address this issue because his sleep ing pattern is off. For example, 2 days ago, I went to bed around 10pm and slept till 1am an d could not fall back asleep again all night Described his appetite as good and Admitt ed to past Hx of Suicidal attempt but denied experienc ing depression or any suicidal/homicidal ideations, thoughts, plan or intent cur rently. Patient was however reminded of the hotline and other emergency numbers to c all or go to the nearest ER in case of any emergency or instability. Javier hsieh lized awareness and understanding. Denied any substance use includin g alcohol and other illicit /street drugs currently. I only take all my prescribed medications and they are walking well with no problems I just need so mething for this sleeping problem pending my up-coming appointment with jin psychiatrist next week. Discussion re- trial of a low dose Trazodone 50 mg at bedtime as needed for sleep, and patient education completed, including proper usage, benefits /risks and possible side effects of medication. verbalized understanding and agreed with plan. Requesting to nut picker medication at the window when prescribed /filled. MSE: Wapiti was alert and o riented in all spheres. Appearance was neat and well groomed. Speech was clear, coherent and unimpair ed. Thought content was organized and goal directed. Mood was mildly anx ious and affect within normal limit. were Demeanor was calm. No hallucinations or delusions elicited. Concentration and memory seemed intact. Good gen [facility] of knowledge. ASSESSMENT / DX: CHRONIC PTSD / INSOMNIA UNSPECI FIED. is Psychiatrically stable sarwat snowden. Requires a trial of medication to address current sleeping problem. No ambrocio cidal or homicidal ideations. Requires continuation of Psychotherapy /medication manage ment with the established prescriber. PLAN/INTERVENTION.: Will giv e an order of Trazodone 50mg for sleep pending next appointment with the established prescriber. Med ication education and reconciliation completed, edilma haskinst verbalized understanding and agreed with plan. Will follow up with the established prescriber trupti nd encouraged to keep all appointments as scheduled. Patient was also made aware he can always call or return to Clinic sooner if needed . CRISIS PLAN: The patient denied suicidal and homicidal ideati ons, but the Veterans Crisis Hotline information and number were given to [place] langley. The patient also understands to call 911 or to go to ER in the ev ent of an emergency. REMINDER: Medication Reconciliation: Outpatient: Has the patient been [...] whether with a VA or non-VA provider. Outpt. Medication Reconciliation: No Discrepancies Found - Med Rec Completed. NO DISCREPANCIES FOUND - The patient's medicati on list/medication history to include Local Active VA Prescription s, Remote Active VA Prescriptions, Non-VA medications, Recently Exp ired VA Prescriptions (90-180 days), Recently Discontinued VA Prescri ptions (90-180 days), and Pending Medication Orders where relevant (e .g., patient is seen by multiple providers in the same day) was comp ared with CPRS and reviewed with the patient/caregiver and reconci led. A copy of the updated medication list was provided to the pat ient/caregiver. The patient/caregiver was instructed to update this list, discard old lists, and take this list to their next appoint ment, whether with a VA or non-VA provider. Any changes in medicatio ns and any medications discontinued are documented in this note. Time spent with patient:30 Mins. Plan for Follow-up: Will follow up with Dr Rachel sutton as scheduled. /ivelisse/ JENNA ANGEL PSYCHIATRIC MENTAL HEALTH NURSE PRACTIONER Signed: 07/25/2021 15:21 Receipt Acknowledged By: * AWAITING SIGNATURE * DENISE STUART
--- OUTSIDE RECORDS SUMMARY | 2022-04-18 10:10 | XMS_ITS | Encounter Summary ---
:1990 Author Organization Department [facility] rs Address [address] [place] [address] Support Name Relationship Address Phone TETE TRAN Unavailable [address] [place] [address] THOMAS MONTOYA Unavailable [address] [facility] [place] [place] [address] Insurance Providers: All historical and current Section [...] [facility] Aug 03, [id number] [phone] ROSA MARIA ChapoOR PATIENT BEE GIMENEZ 2019 [id number] STEPHANIE JOHNSON [facility] DEPT Selected Encounter This section includes the information on record at [facility] for the Encounter. Date/Time Encounter Type Encounter Reason Provider Source Description Jul 18, 2021 Outpatient TELEPHONE ICD-10-CM F43.10 MATY STUART 01:30 PM Encounter Post-traumatic ELYN stress disorder, unspecified with Provider Comments: Posttraumatic stress disorder ([facility] [id number]) IHE Encounter Template Text not used by [facility] Assessments - Encounter Diagnoses This section includes the primary and secondary diagnoses documented for the Encounter. Date/Time Primary/Secondary Diagnosis Name Provider Source Diagnosis Jul 18, 2021 PRIMARY Post-traumatic WINSTON STUART [place] [facility] 01:30 PM stress disorder, [facility] unspecified Jul 18, 2021 SECONDARY Major depressive WINSTON STUART [facility] 01:30 PM disorder, [facility] recurrent, moderate Plan of Treatment: Future Appointments (+ 6 months) and Future Tests (+/- 45 days) The Plan of Treatment section includes future care activities for the patient from [facility]. This section includes future appointments and future orders which are active, pending orscheduled.Future Appointments This section includes appointments that were scheduled to occur 6 months from the date of the Encounter, up to a maximum of 20 appointments. The data comes from all [place] treatment facilities. Appointment Date/Time Appointment Type Appointment Facili ty Name Jul 25, 2021 02:30 PM AMBULATORY - PS[facility]IATRY [facility] [place] [facility] Jul 26, 2021 09:00 AM AMBULATORY - MEDICINE [facility] [place] [facility] Jul 30, 2021 11:30 AM AMBULATORY - PS[facility]CHIATRY [facility] [place] [facility] Aug 07, 2021 11:00 AM AMBULATORY - MEDICINE [facility] [place] [facility] Aug 13, 2021 07:30 AM AMBULATORY - NONE [facility] [place] [facility] Aug 19, 2021 02:00 PM AMBULATORY - PS[facility]CHIATRY [facility] [place] [facility] Aug 28, 2021 10:20 AM AMBULATORY - MEDICINE [facility] [place] [facility] Aug 28, 2021 03:00 PM AMBULATORY - MEDICINE [facility] [place] [facility] Aug 28, 2021 03:01 PM AMBULATORY - MEDICINE [facility] [place] [facility] Aug 28, 2021 03:15 PM AMBULATORY - MEDICINE [facility] [place] [facility] Sep 03, 2021 04:00 PM AMBULATORY - PS[facility]CHIATRY [facility] [place] [facility] Sep 16, 2021 03:30 PM AMBULATORY - PS[facility]CHIATRY [facility] [place] [facility] Sep 17, 2021 04:00 PM AMBULATORY - PS[facility]CHIATRY [facility] [place] [facility] Sep 24, 2021 09:45 AM AMBULATORY - NONE [facility] [place] [facility] Sep 25, 2021 09:00 AM AMBULATORY - PS[facility]CHIATRY [facility] [place] [facility] Sep 26, 2021 04:00 PM AMBULATORY - PSYCHIATRY [facility] [place] [facility] Oct 01, 2021 07:00 AM AMBULATORY [facility]ATRY [facility] Oct 02, 2021 10:00 AM AMBULATORY - PS[facility]CHIATRY [facility] Oct 04, 2021 09:00 AM AMBULATORY - PSYCHIATRY [facility] Oct 07, 2021 11:00 AM AMBULATORY - PSYCHIATRY [place] [facility] Lab Results: +/- 30 days of the encounter This section includes the Chemistry and Hematology Lab Results on record with DC for the patient. Radiology Reports and Pathology [...] Lab: [facility] [facility] [address] [facility] [address] Performing Lab: [facility] [facility] [address] [facility] [address] THYROID T4 FREE(FT4) 1.36 0.6-1.6 Aug 07, 2021 [facility] VITAMIN D (25-OH) Specimen Type : SERUM 11:28 AM [facility] [facility] No comment enter ed. Ordering Provid er: DIMITRI SCRUGGS Report Released Date/Time: Aug 07, 2021 11:18 AM Reporting Lab: [facility] [place] [facility] [address] [facility] [address] Performing Lab: [facility] [place] [facility] [address] [facility] [address] VITAMIN D (25-OH) 34 20-50 Aug 07, 2021 11:28 AM [facility] [place] [facility] Specimen Type: SERUM HCS No comment enter ed. Ordering Provid er: DIMITRI SCRUGGS Report Released Date/Time: Aug 07, 2021 11:18 AM Reporting Lab: [facility] [place] [facility] [address] [facility] [address] Performing Lab: [facility] [place] [facility] [address] [facility] [address] TSH 0.48 0.35-5.00 Aug 07, 2021 11:28 [facility] VITAMIN B12 Specimen Typ e: SERUM AM [facility] [facility] No comment enter ed. Ordering Provid er: DIMITRI SCRUGGS Report Released Date/Time: Aug 07, 2021 11:18 AM Reporting Lab: [facility] [place] [facility] [address] [facility] [address] Performing Lab: [place] [facility] [place] [facility] [address] [facility] [address] VITAMIN B12 409 200-900 Aug 07, 2021 [facility] HEMOGLOBIN A1C PANEL Specimen T ype: BLOOD 11:28 AM [facility] Comment: Testin g performed by NGSP [...] Aug 07, 2021 11:18 AM Reporting Lab: [place] [facility] [place] [facility] [address] [facility] [address] Performing Lab: [place] [facility] [place] [facility] [address] [facility] [address] HEMOGLOBIN A1C 4.7 4.0-5.6 Aug 07, 2021 11:28 [facility] LIVER FUNCTION Specimen Typ e: SERUM AM [place] [facility] No comment enter ed. Ordering Provid er: DIMITRI SCRUGGS Report Released Date/Time: Aug 07, 2021 11:18 AM Reporting Lab: [place] [facility] [place] [facility] [address] [facility] [address] Performing Lab: [place] [facility] [place] [facility] [address] [facility] [address] PROTEIN,TOTAL 7.4 6.0-8.3 ALBUMIN 4.3 3.5-5.0 ALKALINE PHOSPHATASE 62 40-150 AST 26 5-34 ALT 27 0-55 BILIRUBIN, TOTAL 1.0 0.2-1.2 Aug 07, 2021 [place] [facility] LIPID PANEL, NON Specimen Type: SERUM 11:28 AM [facility] [facility] No comment enter ed. Ordering Provid er: DIMITRI SCRUGGS Report Released Date/Time: Aug 07, 2021 11:18 AM Reporting Lab: [facility] [place] [facility] [address] [facility] [address] Performing Lab: [facility] [place] [facility] [address] [facility] [address] CHOLESTEROL 191 0-199 TRIGLYCERIDE 110 0-150 LDL calculated 125 0-129 CHOL/HDL 4.3 HDL CHOLESTEROL 44 40-60 Aug 07, 2021 [place] [facility] BASIC METABOLIC PANEL Specimen Type: SERUM 11:28 AM [place] [facility] (non-fasting) No comment enter ed. Ordering Provid er: DIMITRI SCRUGGS Report Released Date/Time: Aug 07, 2021 11:18 AM Reporting Lab: [facility] [place] [facility] [address] [facility] [address] Performing Lab: [place] [facility] [place] [facility] [address] [facility] [address] UREA NITROGEN 17 7-25 GLUCOSE 81 65-100 SODIUM 139 135-145 POTASSIUM 4.3 3.5-5.0 CHLORIDE 105 100-110 CO2 24 20-30 CREATININE, Serum 1.18 0.50-1.40 eGFR (IDMS) 72 >60 Aug 07, 2021 11:28 AM [place] [facility] [place] CBC Specimen Type: BLOOD HCS No comment enter ed. Ordering Provid er: DIMITRI SCRUGGS Report Released Date/Time: Aug 07, 2021 11:18 AM Reporting Lab: [facility] [place] [facility] [address] [facility] [address] Performing Lab: [facility] [place] [facility] [address] [facility] [address] WBC 4.66 4.50-11.00 RBC 5.38 4.23-5.66 HGB 16.3 12.8-17 HCT 47.2 39.2-50.4 MCV 87.7 82-99 MCHC 34.5 30.8-35.1 PLT 247 140-360 RDW-CV 11.9 L 12.0-16.0 MCH 30.3 26.2-32.6 Social History: Smoking Status (Most current) and Tobacco Use (All prior to encounter date) This section includes the most current, and the historical, smoking and tobacco-related health factors from the [place] facility where the Encounter took place.Current Smoking Status This section includes the most current smoking, or tobacco-related health factor, from the [place] facility where the Encounter took place. Date/Time Current Smoking Status Comment Facility May 23, 2021 02:30 PM VA-TOBACCO NEVER USED [place] C [facility] Encounter Notes: All associated encounter notes This section contains the clinical notes associated to the Encounter. Date/Time Encounter Note(s) Provider Source Jul 18, 2021 01:27 TELEPHONE ENCOUNTER NOTE: DENISE STUART [facility] PM LOCAL TITLE: TELEHEALTH [facility]PHONE [facility] STANDARD TITLE: TELEPHONE ENCOUNTER NOTE DATE OF NOTE: JUL 18, 2021@13:27 ENTRY DATE: JUL 18, 2021@13:28 AUTHOR: DENISE STUART EXP COSIGNER: URGENCY: STATUS: COMPLETED Time Spent: 8 minutes Patient consents to telehealth telephone visit cathi orellana for mental health follow up. GEORGE MONTOYA, a 31 year old WHITE MALE had telehealth telephone visit today for mental health follow up. MENTAL HEALTH NOTE: had telehealth telephone visit today for 8 min for routine follow up. Two forms of identification was used. DIAGNOSES AND PROBLEMS TREATED THIS VISIT: TBI, PTSD, MDD, Recurrent, Moderate to Severe ru le out with psychotic features, Sleep Deprivation, Cannabis Use SUBJECTIVE: George says that was ok. He says this time of year is harder for him. He felt more anxious on day. He says his anxiety is better since is over. This is when he had the specific event in [place] that is a main trauma for him. He sa ys that he used one of the ativans on and this was helpful for lizbeth ramesh to get through this tough time. He denies any active suicidal thoughts tod lashay. He says he has been talking with Ramya about these at his last visit. He feels he is managing ok at this time. He continues on his medica tions and denies any side effects from them. SUBSTANCE ABUSE: Caffeine: denies Tobacco: denies Cocaine: denies Opioid: denies Alcohol: Says he doesn't drink alcohol v milvia much. He says he will drink a beer every few months. 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 Are you having thoughts today about killing y ourself? No 2. Do you have a plan to kill yourself? No Describe plan: 3. Do you have the means to carry out the plan? No 4. Risk level: Low (no suicide specific actions are needed) Current meds: Active and Recently Outpatient Medicatio [...] PTSD SYMPTOMS. DOSE INCREASE FROM 6 MG. MEDICATION ADHERENCE: takes medications most day s MEDICATION SIDE EFFECTS: none OBJECTIVE:recent labs:LAB RESULTS LAST 1440 HRS - NONE FOUND Weight: 184 lb [83.6 kg] (07/04/2020 15:23) BMI: 28.0 MENTAL STATUS EXAM: Orientation and Consciousness: Alert and fully o riented. Behavior: calm and cooperative. Speech: Normal rate and volume. Mood/Affect: ok. Affect: euthymic Thought Production/Content: Logical, sequential & relevant to discussion. Perceptual Disturbances: None. Attention, concentration and memory based on answers to session questions: Good. Insight/Judgment: Both good. SI/HI: neither elicited Ability to Provide informed consent: Yes. ASSESSMENT:31 year old WHITE MALE, [facility] for mental health follow up. TREATMENT PLAN/ DISCUSSION/ RATIONALE: 1.::: Medication management: Reviewed medication s with George. He continues on his current regimen of prazosin, well butrin, gabapentin, lexapro and ativan prn (new temporary medication). George denies any side effects to his current medications. No changes made today. George says he was able to get through [place] as well as he had hoped and without an y worsening of his passive suicidal thoughts. Will continue to follow close ly. He continues in therapy with Ramya. George sounds in good sp irits today. I believe we can continue to treat him in the outpatient setting. We have discussed inpatient level of care if he would want this, but he does not want that at this time. Next Visit: in 2 weeks. Patient is aware of how to access [facility] open [facility] clinic in [facility] during weekdays for immediate mental health [...] or call 911 for psychiatric emergencies, inc herreralatrell SI/HI. ::: SAFETY PLAN: Pt was educated about emergency services available at this facility e.g., ER) and in the community (i pouding Crisis Line, 911, [place] National Suicide Prevention Lifeline: 0-855- 713-SKHC). Patient is instructed to contact me should [...] whether with a VA or non-VA provider. PCL Needed for PTSD: The patient could not be evaluated due to an ac [place] illness. Comment: Chris is already a hard time for h im. /ivelisse/ DENISE STUART MD PSYCHIATRIST Signed: 07/18/2021 13:53
--- OUTSIDE RECORDS SUMMARY | 2022-04-18 10:10 | XMS_ITS | Encounter Summary ---
:[address] [facility] Address [address] [place] [address] Support Name Relationship Address Phone TETE TRAN Unavailable [address] [facility] [place] [address] THOMAS MONTOYA Unavailable [address] [place] [address] Insurance Providers: All historical and current Section Date Range: From patient's date of to the date document was created.This section includes the names of all active insurance providers for the patient. Insurance Type of Plan Start of End of Group Member Insurance Policy P atient's Provider Coverage Name Policy Policy Number ID Provider's Ojeda's Relationship Coverage Coverage Telephone Name to Policy Number Ojeda [facility] Aug 03, [id number] [phone] ROSINA CALLAHAN 2019 [id number] STEPHANIE JOHNSON [facility] DEPT Selected Encounter This section includes the information on record at [place] for the Encounter. Date/Time Encounter Type Encounter Description Reason Provider Source Jul 24, 2021 01:26 Outpatient Encounter TELEPHONE TRIAGE PM IHE Encounter Template Text not used by [place] Plan of Treatment: Future Appointments (+ 6 months) and Future Tests (+/- 45 days) The Plan of Treatment section includes future care activities for the patient from all [place] treatmentfacilities. This section includes future appointments and future orders which are active, pending orscheduled.Future Appointments This section includes appointments that were scheduled to occur 6 months from the date of the Encounter, up to a maximum of 20 appointments. The data comes from all [place] treatment facilities. Appointment Date/Time Appointment Type Appointment Facili ty Name Jul 25, 2021 02:30 PM AMBULATORY - PSYCHIATRY [facility] Jul 26, 2021 09:00 AM AMBUL[facility] MEDICINE [facility] Jul 30, 2021 11:30 AM AMBULATORY - PS[facility]CHIATRY [facility] Aug 07, 2021 11:00 AM AMBULATORY - MEDICINE [facility] [place] [facility] Aug 13, 2021 07:30 AM AMBULATORY - NONE [facility] Aug 19, 2021 02:00 PM AMBULATORY - PSYCHIATRY [facility] Aug 28, 2021 10:20 AM AMBULATORY - MEDICINE [facility] [place] [facility] Aug 28, 2021 03:00 PM AMBULATORY - MEDICINE [facility] Aug 28, 2021 03:01 PM AMBULATORY - MEDICINE [facility] [place] [facility] Aug 28, 2021 03:15 PM AMBULATORY - MEDICINE [facility] [place] [facility] Sep 03, 2021 04:00 PM AMBULATORY - PSYCHIATRY [facility] [place] [facility] Sep 16, 2021 03:30 PM AMBULATORY - PSYCHIATRY [facility] [place] [facility] Sep 17, 2021 04:00 PM [...] [facility] [facility] [address] [facility] [address] Performing Lab: [facility] [facility] [address] [facility] [address] THYROID T4 FREE(FT4) 1.36 0.6-1.6 Aug 07, 2021 [facility] VITAMIN D (25-OH) Specimen Type : SERUM 11:28 AM [place] [facility] No comment enter ed. Ordering Provid er: DIMITRI SCRUGGS Report Released Date/Time: Aug 07, 2021 11:18 AM Reporting Lab: [facility] [address] [facility] [address] Performing Lab: [facility] [address] [facility] [address] VITAMIN D (25-OH) 34 20-50 Aug 07, 2021 11:28 AM [facility] [place] [facility] Specimen Type: SERUM HCS No comment enter ed. Ordering Provid er: DIMITRI SCRUGGS Report Released Date/Time: Aug 07, 2021 11:18 AM Reporting Lab: [facility] [place] [facility] [address] [facility] [address] Performing Lab: [facility] [place] [address] [facility] [address] TSH 0.48 0.35-5.00 Aug 07, 2021 11:28 [facility] VITAMIN B12 Specimen Typ e: SERUM AM [place] [facility] No comment enter ed. Ordering Provid er: DIMITRI SCRUGGS Report Released Date/Time: Aug 07, 2021 11:18 AM Reporting Lab: [facility] [address] [facility] [address] Performing Lab: [facility] [address] [facility] [address] VITAMIN B12 409 200-900 Aug 07, 2021 11:28 [facility] Specimen Typ e: SERUM AM [place] [facility] No comment enter ed. Ordering Provid er: DIMITRI SCRUGGS Report Released Date/Time: Aug 07, 2021 11:18 AM Reporting Lab: [facility] [address] [facility] [address] Performing Lab: [facility] [address] [facility] [address] PROTEIN,TOTAL 7.4 6.0-8.3 ALBUMIN 4.3 3.5-5.0 ALKALINE PHOSPHATASE 62 40-150 AST 26 5-34 ALT 27 0-55 BILIRUBIN, TOTAL 1.0 0.2-1.2 Aug 07, 2021 [facility] LIPID PANEL, NON Specimen Type: SERUM 11:28 AM [facility] FASTING No comment enter ed. Ordering Provid er: DIMITRI SCRUGGS Report Released Date/Time: Aug 07, 2021 11:18 AM Reporting Lab: [facility] [address] [facility] [address] Performing Lab: [facility] [address] [facility] [address] CHOLESTEROL 191 0-199 TRIGLYCERIDE 110 0-150 LDL calculated 125 0-129 CHOL/HDL 4.3 HDL CHOLESTEROL 44 40-60 Aug 07, 2021 [facility] HEMOGLOBIN A1C PANEL Specimen T [...] 11:18 AM Reporting Lab: [facility] [place] [address] [facility] [address] Performing Lab: [place] [facility] [address] [facility] [address] HEMOGLOBIN A1C 4.7 4.0-5.6 Aug 07, 2021 [place] [facility] BASIC METABOLIC PANEL Specimen Type: SERUM 11:28 [facility] [place] [facility] (non-fasting) No comment enter ed. Ordering Provid er: DIMITRI SCRUGGS Report Released Date/Time: Aug 07, 2021 11:18 AM Reporting Lab: [facility] [place] [facility] [address] [facility] [address] Performing Lab: [place] [facility] [facility] [address] [facility] [address] UREA NITROGEN 17 7-25 GLUCOSE 81 65-100 SODIUM 139 135-145 POTASSIUM 4.3 3.5-5.0 CHLORIDE 105 100-110 CO2 24 20-30 CREATININE, Serum 1.18 0.50-1.40 eGFR (IDMS) 72 >60 Aug 07, 2021 11:28 AM [facility] [place] CBC Specimen Type: BLOOD HCS No comment enter ed. Ordering Provid er: DIMITRI SCRUGGS Report Released Date/Time: Aug 07, 2021 11:18 AM Reporting Lab: [facility] [place] [facility] [address] [facility] [address] Performing Lab: [place] [facility] [facility] [address] [facility] [address] WBC 4.66 4.50-11.00 RBC 5.38 4.23-5.66 HGB [...] 23, 2021 02:30 PM [facility]CO [facility] Encounter Notes: All associated encounter notes This section contains the clinical notes associated to the Encounter. Date/Time Encounter Note(s) Provider Source Jul 24, 2021 01:26 PM TELEPHONE ENCOUNTER NOTE: KIM GOMES [facility] LOCAL TITLE: VISN 1 CCC ACTION REQUIRED [facility] STAND[facility] TITLE: TELEPHONE ENCOUNTER NOTE DATE OF NOTE: JUL 24, 2021@13:26:10 ENTRY DATE: JUL 24, 2021@13:28:52 AUTHOR: KIM GOMES EXP COSIGNER: URGENCY: STATUS: COMPLETED VISN 1 CCC ACTION REQUIRED Has ADDENDA The patient, GEORGE MONTOYA ([id number]) called the call center. The following identifiers were used to verify th is patient: . SSN. Contact Type of call: PHARMACY. Caller Response: ADM CALL RESOLVED Caller Area: [facility] Provider Info[facility] ([id number]) PACT: NO PACT 7 (Focus: Primary Care Only) Primary Care Provider: Dimitri Scruggs PH ONE:[id number] Elevator Attendant: Nisa Reynolds PHONE :[phone] Clinical Associate: Aram Lowery PHONE:[phone] Water And Fire Technician: Yesika Borden PHONE:[phone] PACT Clinical Pharmacist: Dipti Pittman PHONE:[phone] Clinical POC: Elevator Attendant Nisa Reynolds PHONE:[phone] Administrative POC: Water And Fire Technician Yesika Borden PHONE:[phone] MH: [facility] MHC TEAM (TC) Coordinator Of Online Programs Anival Del Angel [id number] Author: KIM GOMES Comments: Vet requests a C/B from provider to discuss d ifficulties sleeping and the possibility of a RX to help. Evaluation/Management Code: HC PRO PHONE CALL 5- 10 MIN ([id number]). Starting at: 07/24/2021 @ 1:26:10 PM Ending at: 07/24/2021 @ 1:27:53 PM Length: 1 minutes. Chief Complaint: Not applicable to call. Class Code: Other specified counseling. Patient's Email Address: [email or web address] Zonia /ivelisse/ KIM GOMES ADVANCED CUSTODIAL FOREMAN Signed: 07/24/2021 13:28 Receipt Acknowledged By: * AWAITING SIGNATURE * DENISE STUART 07/25/2021 09:29 /es/ DANK MONTGOMERY RN Registered Nurse 07/24/2021 ADDENDUM STATUS: COMPLETED Alerting 's individual psychotherapist to patient request /ivelisse/ DANK MONTGOMERY RN Registered Nurse Signed: 07/24/2021 13:45 Receipt Acknowledged By: 07/25/2021 07:55 /es/ ANIVAL DEL ANGEL [facility] CLINICAL LEATHER CARVER 07/25/2021 ADDENDUM STATUS: COMPLETED [place] [facility] RN talk by telephone. He acknowledges understanding that since his established prescriber is on leave a meeting with the walk-in prescriber will be beneficial. is booked to meet fa ce-to-face with Dr. Garcia in the [facility] walk-in clinic at 2:30 PM today. /ivelisse/ DANK MONTGOMERY RN Registered Nurse Signed: 07/25/2021 09:31 Receipt Acknowledged By: * AWAITING SIGNATURE * CAROLYN GARCIA
--- OUTSIDE RECORDS SUMMARY | 2022-04-18 10:10 | XMS_ITS ---
:1990 Author Organization Department of [facility] rs Address [address] [place] [address] Support Name Relationship Address Phone TETE TRAN Unavailable [address] [place] [address] THOMAS MONTOYA Unavailable [address] [place] [address] Insurance Providers: All historical and current Section Date Range: From patient's date of to the date document was created.This section includes the names of all active insurance providers for the patient. Insurance Type of Plan Start of End of Group Member Insurance Policy P atient's Provider Coverage Name Policy Policy Number ID Provider's Ojeda's Relationship Coverage Coverage Telephone Name to Policy Number Ojeda [facility] Aug 03, [id number] [id number] ROSINA CALLAHAN ASHLEE GIMENEZ [id number] STEPHANIE JOHNSON [facility] ORGANIZ E DEPT Selected Encounter This section includes the information on record at [facility] for the Encounter. Date/Time Encounter Type Encounter Reason Provider Source Description Aug 07, 2021 OFFICE O/P EST PRIMARY ICD-10-CM M25.519 SHARRI WYLIE 11:00 AM MOD 30-39 MIN CARE/MEDICINE Pain in AM J unspecified shoulder with Provider Comments: Bilateral shoulder joint pain (SCT [id number] ) IHE Encounter Template Text not used by [facility] Assessments - Encounter Diagnoses This section includes the primary and secondary diagnoses documented for the Encounter. Date/Time Primary/Secondary Diagnosis Name Provider Source Diagnosis Aug 08, 2021 PRIMARY Pain in SRINIVAS WYLIE [facility] 12:51 PM unspecified MIHIR J [place] [facility] shoulder Aug 08, 2021 SECONDARY Encounter for RODERICK PRAJAPATI [facility] 12:51 PM immunization EN ANDREA SAUER [facility] Aug 08, 2021 SECONDARY Hypertensive heart WYLIE,WILL [facility] 12:51 PM disease without MIHIR J [place] [facility] heart failure Aug 08, 2021 SECONDARY Vasectomy status WYLIE,WILL [facility] 12:51 PM MIHIR J LAYAUSEFABY [facility] Plan of Treatment: Future Appointments (+ 6 [...] Appointment Type Appointment Facili ty Name Aug 13, 2021 07:30 AM AMBULATORY - NONE [facility] [place] [facility] Aug 19, 2021 02:00 PM AMBULATORY - PSYCHIATRY [facility] [place] [facility] Aug 28, 2021 10:20 AM AMBULATORY - MEDICINE [facility] [place] [facility] Aug 28, 2021 03:00 PM AMBULATORY - MEDICINE [facility] [place] [facility] Aug 28, 2021 03:01 PM AMBULATORY - MEDICINE [facility] [place] [facility] Aug 28, 2021 03:15 PM AMBULATORY - MEDICINE [facility] [place] [facility] Sep 03, 2021 04:00 PM AMBULATORY - PSYCHIATRY [facility] [place] [facility] Sep 16, 2021 03:30 PM AMBULATORY - PSYCHIATRY [facility] [place] [facility] Sep 17, 2021 04:00 PM AMBULATORY - PSYCHIATRY [facility] [place] [facility] Sep 24, 2021 09:45 AM AMBULATORY - NONE [facility] [place] [facility] Sep 25, 2021 09:00 AM AMBULATORY - PSYCHIATRY [facility] [place] [facility] Sep 26, 2021 04:00 PM AMBULATORY - PSYCHIATRY [facility] [place] [facility] Oct 01, 2021 07:00 AM AMBULATORY - [...] Specimen T ype: SERUM 11:28 AM [place] [facility] No comment enter ed. Ordering Provid er: DIMITRI WYLIE Report Released Date/Time: Aug 07, 2021 11:18 AM Reporting Lab: [facility] [place] [facility] [address] [facility] [address] Performing Lab: [facility] [place] [facility] [address] [facility] [place] [address] THYROID T4 FREE(FT4) 1.36 0.6-1.6 Aug 07, 2021 [facility] VITAMIN D (25-OH) Specimen Type : SERUM 11:28 AM [place] [facility] No comment enter ed. Ordering Provid er: DIMITRI WYLIE Report Released Date/Time: Aug 07, 2021 11:18 AM Reporting Lab: [facility] [place] [facility] [address] [facility] [address] Performing Lab: [facility] [place] [facility] [address] [facility] [address] VITAMIN D (25-OH) 34 20-50 Aug 07, 2021 11:28 AM [facility] [place] TSH Specimen Type: SERUM HCS No comment enter ed. Ordering Provid er: DIMITRI WYLIE Report Released Date/Time: Aug 07, 2021 11:18 AM Reporting Lab: [facility] [address] [facility] [facility] [address] Performing Lab: [place] [facility] [address] [facility] [address] TSH 0.48 0.35-5.00 Aug 07, 2021 11:28 [place] [facility] VITAMIN B12 Specimen Typ e: SERUM AM [place] [facility] No comment enter ed. Ordering Provid er: DIMITRI WYLIE Report Released Date/Time: Aug 07, 2021 11:18 AM Reporting Lab: [facility] [address] [facility] [address] Performing Lab: [facility] [address] [facility] [address] VITAMIN B12 409 200-900 Aug 07, 2021 [place] CNT WSTRN HEMOGLOBIN A1C PANEL Specimen T ype: BLOOD 11:28 AM [facility] Comment: Testin g performed by NGSP certified Mejia Enzymatic with CV <2%. The Mejia HgA1C assay should not be used to diagnose or monitor diabetes in patients with altered red cell lifespan such a s homozygous hem oglobin variants, Hb SC, HbF>5% and hemolytic anemia. Heterozygous variants do not affect this assay, HbAS, HbAC, HbAD, HbAE, AbA2 Ordering Provid er: DIMITRI WYLIE Report Released Date/Time: Aug 07, 2021 11:18 AM Reporting Lab: [facility] [address] [facility] [facility] [address] Performing Lab: [facility] [address] [facility] [address] HEMOGLOBIN A1C 4.7 4.0-5.6 Aug 07, 2021 [facility] LIPID PANEL, NON Specimen Type: SERUM 11:28 AM [place] [facility] FASTING No comment enter ed. Ordering Provid er: DIMITRI WYLIE Report Released Date/Time: Aug 07, 2021 11:18 AM Reporting Lab: [facility] [place] [facility] [address] [facility] [facility] [address] Performing Lab: [facility] [place] [facility] [address] [facility] [facility] [address] CHOLESTEROL 191 0-199 TRIGLYCERIDE 110 0-150 LDL calculated 125 0-129 CHOL/HDL 4.3 HDL CHOLESTEROL 44 40-60 Aug 07, 2021 11:28 [facility] LIVER FUNCTION Specimen Typ e: SERUM AM [place] [facility] No comment enter ed. Ordering Provid er: DIMITRI WYLIE Report Released Date/Time: Aug 07, 2021 11:18 AM Reporting Lab: [facility] [place] [facility] [address] [facility] [facility] [address] Performing Lab: [facility] [place] [facility] [address] [facility] [facility] [address] PROTEIN,TOTAL 7.4 6.0-8.3 ALBUMIN 4.3 3.5-5.0 ALKALINE PHOSPHATASE 62 40-150 AST 26 5-34 ALT 27 0-55 BILIRUBIN, TOTAL 1.0 0.2-1.2 Aug 07, 2021 [place] [facility] BASIC METABOLIC PANEL Specimen Type: SERUM 11:28 AM [place] [facility] (non-fasting) No comment enter ed. Ordering Provid er: DIMITRI WYLIE Report Released Date/Time: Aug 07, 2021 11:18 AM Reporting Lab: [facility] [place] [facility] [address] [facility] [address] Performing Lab: [place] CNTR [facility]N [place] [facility] [address] [facility] [facility] [address] UREA NITROGEN 17 7-25 GLUCOSE 81 65-100 SODIUM 139 135-145 POTASSIUM 4.3 3.5-5.0 CHLORIDE 105 100-110 CO2 24 20-30 CREATININE, Serum 1.18 0.50-1.40 eGFR (IDMS) 72 >60 Aug 07, 2021 11:28 AM [place] CNTR [facility] [place] CBC Specimen Type: BLOOD HCS No comment enter ed. Ordering Provid er: DIMITRI WYLIE Report Released Date/Time: Aug 07, 2021 11:18 AM Reporting Lab: [facility] [place] [facility] [address] [facility] [address] Performing Lab: [facility] [place] [facility] [address] [facility] [address] WBC 4.66 4.50-11.00 RBC 5.38 4.23-5.66 HGB [...] dy Source Pressure Rate Mass Index Aug 07, 98.1 F 67 132/70 20 /min 98 % 6 68 in 191 lb 29 CO 2021 10:58 /min mm[Hg] CNTRL AM [facility] [place] [facility] Immunizations: All administered on the encounter date This section contains immunizations associated to the Encounter. Immunization Series Date Issued Reaction Comments INFLUENZA, INJECTABLE, QUADRIVALENT, Aug 07, 2021 PRESERVATIVE FREE Social History: Smoking Status (Most current) and [...] VA-TOBACCO NEVER USED [place] C NTRL [facility] [place] [facility] Encounter Notes: All associated encounter notes This section contains the clinical notes associated to the Encounter. Date/Time Encounter Note(s) Provider Source Aug 08, 2021 12:51 PRIMARY CARE NURSE PRACTITIONER OUTPATIE NT NOTE: DIMITRI WYLIE [place] [facility] PM LOCAL TITLE: NURSE PRACTITIONER OUTPATIENT NOTE J [place] [facility] STANDARD TITLE: PRIMARY CARE NURSE PRACTITIONER OUTPATIENT NOTE DATE OF NOTE: AUG 08, 2021@12:51 ENTRY DATE: AUG 08, 2021@12:51:19 AUTHOR: DIMITRI WYLIE COSIGNER: URGENCY: STATUS: COMPLETED [facility] [address] [place] [address] [facility] Toll Free Number Primary Care Telephone Assistance can be reached at extension [phone] [facility] scheduling can be reac hed at extension [phone] [facility] scheduling can be ellie ched at ext [phone] AUG 08, 2021 GEORGE MONTOYA [address], [place], [address] Dear GEORGE MONTOYA, Thank you for coming in for your tests. Your rec ent test results are as follows: LAB CHEMISTRY & HEMATOLOGY Collection DT Specimen Test Name Result Units Re f Range 08/07/2021 11:28 BLOOD !! HEMOGLOBIN A1C 4.7 % 4 .0 - 5.6 08/07/2021 11:28 BLOOD WBC 4.66 K/cmm 4.50 - 11.00 RBC 5.38 M/cmm 4.23 - 5.66 HGB 16.3 g/dL 12.8 - 17 HCT 47.2 % 39.2 - 50.4 MCV 87.7 fl 82 - 99 MCH 30.3 pg 26.2 - 32.6 MCHC 34.5 g/dL 30.8 - 35.1 RDW-CV 11.9 L % 12.0 - 16.0 PLT 247 K/cmm 140 - 360 08/07/2021 11:28 SERUM Free T4 1.36 ng/dL 0.6 - 1.6 08/07/2021 11:28 SERUM VITAMIN B12 409 pg/mL 200 - 900 TSH 0.48 uIU/mL 0.35 - 5.00 CREATININE, Serum 1.18 mg/dL 0.50 - 1.40 eGFR (IDMS) >60 Ref: >=60 VITAMIN D (25-OH) 34 ng/mL 20 - 50 SODIUM 139 mmol/L 135 - 145 POTASSIUM 4.3 mmol/L 3.5 - 5.0 CHLORIDE 105 mmol/L 100 - 110 CO2 24 mEq/L 20 - 30 UREA NITROGEN 17 mg/dL 7 - 25 GLUCOSE 81 mg/dL 65 - 100 PROTEIN,TOTAL 7.4 g/dL 6.0 - 8.3 ALBUMIN 4.3 g/dL 3.5 - 5.0 ALK TERRENCE 62 U/L 40 - 150 AST 26 U/L 5 - 34 BILIRUBIN, TOTAL 1.0 mg/dL 0.2 - 1.2 CHOLESTEROL 191 mg/dL 0 - 199 TRIGLYCERIDE 110 mg/dL 0 - 150 LDL calculated 125 mg/dL 0 - 129 CHOL/HDL 4.3 ALT 27 U/L 0 - 55 HDL CHOLESTEROL 44 mg/dL 40 - 60 Thyroid Test Collection DT Spec TSH 08/07/2021 11:28 SERUM 0.48 I have reviewed your results. Everything looks f ine. Thank you for allowing me to be a part of your [facility] care team. Please call if you have any questions or concern s. Sincerely, Dr. Dimitri Wylie DNP, CIVIL ENGINEERING DESIGN DRAFTSPERSON-BC, CNL Nurse Practitioner Primary Care PACT Seven /es/ Dimitri Wylie DNP, CIVIL ENGINEERING DESIGN DRAFTSPERSON-MICHELLE, MAGIL Primary Care Nurse Practitioner Signed: 08/08/2021 12:51 Receipt Acknowledged By: * AWAITING SIGNATURE * RYLEE GREER Aug 07, 2021 12:49 PRIMARY CARE NURSE PRACTITIONER OUTPATIE NT NOTE: DIMITRI WYLIE CNTRL WSTRN LOCAL TITLE: NURSE PRACTITIONER OUTPATIENT [facility] STANDARD TITLE: PRIMARY CARE NURSE PRACTITIONER OUTPATIENT NOTE DATE OF NOTE: AUG 07, 2021@12:49 ENTRY DATE: AUG 07, 2021@12:49:22 AUTHOR: DIMITRI WYLIE EXP COSIGNER: URGENCY: STATUS: COMPLETED Chief complaint: 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 HPI: Pleasant male [employer] h ere to follow up. Feeling well overall though he has a great deal of discomfort, lower right jaw. On exam, lower right gum errythema, some swelling. No drainage. Considering level of discomfort, will treat with clindimyacin, he was educated on use, will inclu de a probiotic. He is also interested in a vasectomy, he has 3 children, on e more on its way, he and his have discussed this, ready to pursue, consu lt placed. He does report increased fatigue, he questi ons testosterone, considering all that is happening, likely not causal, i will place order, if sx per sist, he will come in for testing. PMH: Active problems - Computerized Problem List is t he source for the followin. Bilateral shoulder joint pain 2. 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 Congenital vesicoureteric obstruction Had ri ght lap simple nephrectomy on 07/16/15 5. Low back pain X-RAY, L-Spine 2012: some Scol iosis 6. Benign hypertension US, Renal JUN 01: +Benig n Cysts R Side; None L Side 7. Posttraumatic stress disorder (SNOMED [place] [address] [address]) updated. Allergies: Patient has answered NKA The following VA and Non-VA meds were re conciled with patient. The patient was educated on the use of the medications including indication and side effects. Active and Recently Outpatient Medicatio ns (excluding [...] SYMPTOMS. DOSE INCREASE FROM 6 MG. 9) TRAZODONE HCL 100MG TAB TAKE ONE AND ONE-HALF TABLETS ACTIVE BY MOUTH AT BEDTIME NEEDED FOR SLEEP Review of Systems: Constitutional: (-)for Fevers , chills, weakness, nights sweats Mouth/Dental: (+) for: lower right jaw pain Cardiac: (-) for: Chest pain, HOWARD, Palpitations Respiratory: (-) for: Cough, Wheeze, Dyspnea, D OE GI/Digestive: (-) for: change in appetite, dysp hagia, heartburn, abdominal pain, change in stool /Urologic: Male : (-) for: dysuria, frequen cy, nocturia, urgency, hematuria, incontinence Musculoskeletal: (-) for: Muscle cramps, joint pain or stiffness Neurologic: (-) for : Headaches, dizziness Skin: (-) for: Rash, lesions, acne, dry skin, i tching, hives On examination: 98.1 F [36.7 C] (08/07/2021 10:58)132/70 (08/07/2021 10:58)67 (08/07/2021 10:58) 20 (08/07/2021 10:58)6 (08/07/2021 10:58 )BMI: 29.1191 lb [86.8 kg] (08/07/2021 10:58) is alert and oriented X3 HEENT: External without scars, lesions or masses , TM's without erythema or perforations, right lower jaw as above, no exuda aren or worrisome lesions Neck: supple without masses, trachea midline, ln not palpable, no thyromegaly Cardiovasc: 2plus carotids w ithout bruits, no JVD Heart Reguler rate and rhythm NL S1S2 no S3 or murmur Respiration: Normal respiratory effort, lungs cl ear ABD: Benign normal active bowel sounds no HSM no rebound or referred pain EXT: no clubbing, edema, or cyanosis Neuro:grossly non-focal reflexes symmetric bilat , toes downgoing, CN 2 to 10 intact Derm: no worrisome lesions, rashes or ulcers : Assessment/plan: Active problems - Computerized Problem List is t he source for the followin. Benign hypertension - controlled 2. Dental pain - see above 4. Vasectomy - see above Health Care Maintenance: flu shot today Review of medial record = 5mins Time spent with Patient including shared decisio n making = 20 mins Post visit documentation = 5mins Total time = 30 mins Follow up visit in 6 mos. Alert to PACT RN - Labs as necessary to address clinical status. Medication Reconciliation: Outpatient: Has the patient been taking medications as docu mented in the EMLR? YES: The patient has been taking medications as documented in the EMLR. Essential Medication List for Review used to co mplete this medication reconciliation. INCLUDED IN THIS LIST: Alphabetical list of act cristy outpatient prescriptions dispensed from this [place] (local) an d dispensed from another [place] or [facility] facility (remote) as well as inpatien [...] appointme nt, whether with a VA or non-CO provider. /ivelisse/ Dimitri Wylie DNP, CIVIL ENGINEERING DESIGN DRAFTSPERSON-BC, CNL Primary Care Nurse Practitioner Signed: 08/07/2021 12:57 Aug 07, 2021 11:00 PREVENTIVE MEDICINE NURSING NOTE: ARAM FRANCISCO CNTRL WSTRN AM [facility] TITLE: CLINICAL REMINDERS/NURSING [place] [facility] STANDARD TITLE: PREVENTIVE MEDICINE NURSING NOTE DATE OF NOTE: AUG 07, 2021@11:00 ENTRY DATE: AUG 07, 2021@11:00:49 AUTHOR: ARAM FRANCISCO EXP COSIGNER: URGENCY: STATUS: COMPLETED CLINICAL REMINDERS/NURSING Has ADDENDA Advance Directive Screen: Patient has an up-to-date Advance Directive doc ument, but it is not on file at this [facility]. Patient has been requested t o forward a copy to his/her clinician. The patient received education about advance di rectives as well as written notification of his/her rights. Comment: yuli emelia Quinn is vefaby proxy /ivelisse/ Aram [facility] ELECTRONIC TRAIN CONTROL TECHNICIAN,PRIMARY CARE Signed: 08/07/2021 11:01 08/07/2021 ADDENDUM STATUS: COMPLETED Influenza Immunization: The patient was given the influenza VIS which l ists the benefits and side effects of the vaccine and which reviews the ri sks of not receiving the flu vaccine. The VIS was reviewed with the patient and they were given an opportunity to ask questions. The patient was p rovided education on how to decrease the risk of influenza infection inc luding social distancing and use of good hand hygiene. The patient denied an y prior severe reaction to the flu vaccine or its components. The patient gave verbal consent to receive the vaccine. The seasonal influenza vaccine VIS given to the patient: VIS version date Feb. The patient received seasonal influenza vaccine today - Influenza, Quadrivalent preservative free (Afluria) 0.5 ml IM today in Left Deltoid. 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
--- OUTSIDE RECORDS SUMMARY | 2022-04-18 10:10 | XMS_ITS | Encounter Summary ---
:1990 Author Organization Department [facility] Address [address] [place] [address] Support Name Relationship Address Phone TETE TRAN Unavailable 36 [facility] [phone] [place] [address] THOMAS MONTOYA Unavailable 6 [facility] [place] [address] Insurance Providers: All historical and current Section Date Range: From patient's date of to the date document was created.This section includes the names of all active insurance providers for the patient. Insurance Type of Plan Start of End of Group Member Insurance Policy P atient's Provider Coverage Name Policy Policy Number ID Provider's Ojeda's Relationship Coverage Coverage Telephone Name to Policy Number Ojeda [facility] Aug 03, [id number] [phone] ROSA MARIA ChapoWY PATIENT BEE GIMENEZ [id number] [facility] DE[facility] Selected Encounter This section includes the information on record at [facility] for the Encounter. Date/Time Encounter Type Encounter Reason Provider Source Description Jul 30, 2021 Outpatient TELEPHONE ICD-10-CM F43.10 MATY STUART 11:30 AM Encounter Post-traumatic ELYN stress disorder, unspecified with Provider Comments: Posttraumatic stress disorder ([facility] [id number]) IHE Encounter Template Text not used by VA Assessments - Encounter Diagnoses This section includes the primary and secondary diagnoses documented for the Encounter. Date/Time Primary/Secondary Diagnosis Name Provider Source Diagnosis Jul 30, 2021 PRIMARY Post-traumatic WINSTON STUART [place] [facility] [place] TRN 11:30 AM stress disorder, [facility] unspecified Jul 30, 2021 SECONDARY Major depressive WINSTON STUART [place] [facility] 11:30 AM disorder, [facility] recurrent, moderate Plan of Treatment: Future Appointments (+ 6 months) and Future Tests (+/- 45 days) The Plan of Treatment section includes future care activities for the patient from all [facility]. This section includes future appointments and future orders which are active, pending orscheduled.Future Appointments This section includes appointments that were scheduled to occur 6 months from the date of the Encounter, up to a maximum of 20 appointments. The data comes from all [place] treatment facilities. Appointment Date/Time Appointment Type Appointment Facili ty Name Aug 07, 2021 11:00 AM AMBULATORY - MEDICINE [facility] [place] [facility] Aug 13, 2021 07:30 AM AMBULATORY - NONE [facility] [place] [facility] Aug 19, 2021 02:00 PM AMBULATORY - PSYCHIATRY [facility] [place] [facility] Aug 28, 2021 10:20 AM AMBULATORY - MEDICINE [facility] [place] [facility] Aug 28, 2021 03:00 PM AMBULATORY - MEDICINE [facility] [place] [facility] Aug 28, 2021 03:01 PM AMBULATORY - MEDICINE [facility] [place] [facility] Aug 28, 2021 03:15 PM AMBULATORY - MEDICINE [facility] [place] [facility] Sep 03, 2021 04:00 PM AMBULATORY - PSYCHIATRY [facility] [place] [facility] Sep 16, 2021 03:30 PM AMBULATORY - PSYCHIATRY [facility] [place] [facility] Sep 17, 2021 04:00 PM AMBULATORY - PSYCHIATRY [facility] [place] [facility] Sep 24, 2021 09:45 AM AMBULATORY - NONE [facility] [place] [facility] Sep 25, 2021 09:00 AM AMBULATORY - PSYCHIATRY [facility] [place] [facility] Sep 26, 2021 04:00 PM AMBULATORY - PSYCHIATRY [facility] [place] [facility] Oct 01, 2021 07:00 AM AMBULATORY - PSYCHIATRY [facility] [place] [facility] Oct 02, 2021 10:00 AM AMBULATORY - PSYCHIATRY [facility] [place] [facility] Oct 04, 2021 09:00 AM AMBULATORY - PSYCHIATRY [facility] [place] [facility] Oct 07, 2021 11:00 AM AMBULATORY [facility]ATRY [facility] [place] [facility] Oct 08, 2021 09:00 AM AMBULATORY - PS[facility]IATRY [facility] [place] [facility] Oct 09, 2021 10:00 AM AMBULATORY - PS[facility]CHIATRY [facility] [place] [facility] Oct 15, 2021 02:30 PM AMBULATORY - NONE [facility] [place] [facility] Lab Results: +/- 30 days of the encounter This section includes the Chemistry and Hematology Lab Results on record with [place] for the patient. Radiology Reports and Pathology [...] HCS [address] [facility] [address] Performing Lab: [facility] [place] [facility] [address] [facility] [address] THYROID T4 FREE(FT4) 1.36 0.6-1.6 Aug 07, 2021 [facility] VITAMIN D (25-[place]) Specimen Type : SERUM 11:28 [facility] [place] [facility] No comment enter ed. Ordering Provid er: DIMITRI SCRUGGS Report Released Date/Time: Aug 07, 2021 11:18 AM Reporting Lab: [facility] [place] [facility] [address] [facility] [address] Performing Lab: [facility] [place] [facility] [address] [facility] [address] VITAMIN D (25-OH) 34 20-50 Aug 07, 2021 11:28 AM [facility] [place] [facility] Specimen Type: SERUM HCS No comment enter ed. Ordering Provid er: DIMITRI SCRUGGS Report Released Date/Time: Aug 07, 2021 11:18 AM Reporting Lab: [facility] [place] [facility] [address] [facility] [address] Performing Lab: [facility] [address] [facility] [address] TSH 0.48 0.35-5.00 Aug 07, 2021 11:[facility] Specimen Typ e: SERUM AM [place] [facility] No comment enter ed. Ordering Provid er: DIMITRI SCRUGGS Report Released Date/Time: Aug 07, 2021 11:18 AM Reporting [facility] [address] [facility] [address] Performing Lab: [facility] [address] [facility] [address] PROTEIN,TOTAL 7.4 6.0-8.3 ALBUMIN 4.3 3.5-5.0 ALKALINE PHOSPHATASE 62 40-150 AST 26 5-34 ALT 27 0-55 BILIRUBIN, TOTAL 1.0 0.2-1.2 Aug 07, 2021 [facility] HEMOGLOBIN A1C PANEL Specimen T ype: BLOOD 11:28 AM [facility] Comment: Testin g performed by NGSP [...] Aug 07, 2021 11:18 AM Reporting Lab: [facility] [address] [facility] [address] Performing Lab: [facility] [address] [facility] [address] HEMOGLOBIN A1C 4.7 4.0-5.6 Aug 07, 2021 11:28 [facility] VIT[facility] B12 Specimen Typ e: SERUM AM [facility] No comment enter ed. Ordering Provid er: DIMITRI SCRUGGS Report Released Date/Time: Aug 07, 2021 11:18 AM Reporting Lab: [facility] [place] [facility] [address] [facility] [address] Performing Lab: [facility] [place] [facility] [address] [facility] [address] VITAMIN B12 409 200-900 Aug 07, 2021 [facility] LIPID PANEL, NON Specimen Type: SERUM 11:28 AM [place] [facility] FASTING No comment enter ed. Ordering Provid er: DIMITRI SCRUGGS Report Released Date/Time: Aug 07, 2021 11:18 AM Reporting Lab: [facility] [place] [facility] [address] [facility] [address] Performing Lab: [place] [facility] [place] [facility] [address] [facility] [address] CHOLESTEROL 191 0-199 TRIGLYCERIDE 110 0-150 LDL calculated 125 0-129 CHOL/HDL 4.3 HDL CHOLESTEROL 44 40-60 Aug 07, 2021 [facility] BASIC METABOLIC PANEL Specimen Type: SERUM 11:28 AM [place] [facility] (non-fasting) No comment enter ed. Ordering Provid er: DIMITRI SCRUGGS Report Released Date/Time: Aug 07, 2021 11:18 AM Reporting Lab: [place] [facility] [place] [facility] [address] [facility] [address] Performing Lab: [place] [facility] [place] [facility] [address] [facility] [address] UREA NITROGEN 17 7-25 GLUCOSE 81 65-100 [...] HCS [address] [facility] [address] Performing Lab: [place] [facility] [place] [facility] [address] [facility] [address] WBC 4.66 4.50-11.00 RBC 5.38 4.23-5.66 HGB [...] 23, 2021 02:30 PM VA-TOBACCO NEVER USED [place] C NTRL TRN [facility] Encounter Notes: All associated encounter notes This section contains the clinical notes associated to the Encounter. Date/Time Encounter Note(s) Provider Source Jul 30, 2021 11:43 TELEPHONE ENCOUNTER NOTE: DENISE STUART CNTRL WSTRN AM LOCAL TITLE: TELEHEALTH TELEPHONE NOTE [facility] STANDARD TITLE: TELEPHONE ENCOUNTER NOTE DATE OF NOTE: JUL 30, 2021@11:43 ENTRY DATE: JUL 30, 2021@11:43:42 AUTHOR: DENISE STUART EXP COSIGNER: URGENCY: STATUS: COMPLETED Time Spent: 10 minutes Patient consents to telehealth telephone visit f or mental health follow up. GEORGE MONTOYA, a 31 year old WHITE MALE had telehealth telephone visit today for mental health follow up. MENTAL HEALTH NOTE: had telehealth telephone visit today for routine mental health follow up. Two forms of identification was used. 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 He has been struggling to get good sleep. He says after go ing to the walk in clinic for a sleep medication he started taking 100 mg of trazodone and t his doesn't help him remain asleep. He denies any side effects from the trazodone. He s ays the seroquel he had taken in the past made him feel ( very restless. ) He says that he is trying to do better in remembering to olivia e his medications, but says he hasn't been great at this. He says it is hard for him to focus on ellie ding. George denies any current suicidal thinking. He says he wa s laid off from his job. He says he is on his way now to go visit his brother for a whi le. SUBSTANCE ABUSE: Caffeine: denies Tobacco: denies Cocaine: denies Opioid: denies Alcohol: Says he doesn't drink alcohol v milvia much. He says he will drink a beer every few months. 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 DOSE INCREASE FROM 6 MG. 7) TRAZODONE HCL 100MG TAB TAKE ONE-HALF TABLET BY MOUTH ACTIVE AT BEDTIME FOR SLEEP MEDICATION ADHERENCE: takes medications most day s MEDICATION SIDE EFFECTS: none OBJECTIVE:recent labs:LAB RESULTS LAST 1440 HRS - NONE FOUND Weight: 184 lb [83.6 kg] (07/04/2020 15:23) BMI: 28.0 MENTAL STATUS EXAM: Orientation and Consciousness: Alert and fully o riented. Behavior: calm and cooperative. Speech: Normal rate and volume. Mood/Affect: anxious. Affect: constricted. Thought Production/Content: Logical, sequential & relevant to discussion. Perceptual Disturbances: None. Attention, concentration and memory based on answers to session questions: Good. Insight/Judgment: Both good. SI/HI: Neither elicited. Ability to Provide informed consent: Yes. ASSESSMENT:31 year old WHITE MALE, [facility] today for mental health follow up. TREATMENT PLAN/ DISCUSSION/ RATIONALE: 1.::: Medication management: Reviewed medication s today with George. He says his anxiety has been more of an issue lately soumya n his depression. He is noticing difficulty with being able to s it and read and retain the information from what he is reading. This then leads to incr eased irritability. He estimates using the ativan a bout twice a week lately. Recommend that he use the ativan more during this difficult period (four d oses a week) to see if this provides a little more relief. The decreased foc us may be related to the difficulty with sleep. He has been taking 100 mg of trazodone and not getting good sleep with that. Will change this t o 150 mg at night to see if we can get his sleep improved. George continues to work on medication compliance and remembering to take his medications regu larly. He will continue to do his best with this. We discussed his past use of seroquel for anxiety and sleep disturbance which may be str onger than the trazodone; however, George says that he does not want a retrial w ith seroquel as he felt very restless on it. This sounds like he may have had some akathisia with the seroquel. He continues in therapy with Ramya Hernandez. Next Visit: in 2 weeks. Patient is aware of how to access [facility] during weekdays for immediate mental health n [...] or call 911 for psychiatric emergencies, [facility] SI/HI. ::: SAFETY PLAN: Pt was educated about emergency services available at this facility e.g., ER) and in the community (i pouding Crisis Line, 911, [place] National Suicide Prevention Lifeline: 8-328- 910-TALK). Patient is instructed to contact me should [...] in the event of an emerg ency. PCL Needed for PTSD: The patient is no longer in active treatment fo r PTSD. Medication Reconciliation: Outpatient: Has the patient been taking medications as docu mented in the EMLR? YES: The patient has been taking medications as documented in the EMLR. Essential Medication List for Review used to co mplete this medication reconciliation. INCLUDED IN THIS LIST: Alphabetical list of act cristy outpatient prescriptions dispensed from this [place] (local) an d dispensed from another [place] or [facility] facility (remote) as well as inpatien [...] provider. /ivelisse/ DENISE STUART MD PSYCHIATRIST Signed: 07/30/2021 12:05
--- OUTSIDE RECORDS SUMMARY | 2022-04-18 10:10 | XMS_ITS | Encounter Summary ---
:1990 Author Organization Department [facility] Address [address] [place] [address] Support Name Relationship Address Phone TETE TRAN Unavailable 36 [facility] [place] [address] THOMAS MONTOYA Unavailable 6 [facility] [place] [address] Insurance Providers: All historical and current Section [...] Ojeda [facility] Aug 03, [id number] [phone] ROSA MARIA CowanFL PATIENT BEE GIMENEZ 2019 [id number] [facility] E DEPT Selected Encounter This section includes the information on record at [facility] for the Encounter. Date/Time Encounter Type Encounter Reason Provider Source Description Aug 01, 2021 HC PRO PHONE TELEPHONE ICD-10-CM F43.10 MERDA 04:05 PM CALL 5-10 MIN Post-traumatic IE stress disorder, unspecified with Provider Comments: Posttraumatic stress disorder ([facility] [id number]) IHE Encounter Template Text not used by VA Assessments - Encounter Diagnoses This section includes the primary and secondary diagnoses documented for the Encounter. Date/Time Primary/Secondary Diagnosis Name Provider Source Diagnosis Aug 01, 2021 PRIMARY Post-traumatic MER,VERO [facility] WS TRN 04:05 PM stress disorder, [facility] [place] [facility] unspecified Aug 01, 2021 SECONDARY Major depressive MER,VERO [facility] WSTRN 04:05 PM disorder, [facility] [facility] recurrent, moderate Plan of Treatment: Future Appointments (+ 6 months) and Future Tests (+/- 45 days) The Plan of Treatment section includes future care activities for the patient from all [facility] treatment[facility]. This section includes future appointments and [...] - MEDICINE [facility] [place] [facility] Aug 13, 2021 07:30 AM AMBULATORY - NONE [facility] [place] [facility] Aug 19, 2021 02:00 PM AMBULATORY - PSYCHIATRY [facility] [place] [facility] Aug 28, 2021 10:20 AM AMBULATORY - MEDICINE [facility] [place] [facility] Aug 28, 2021 03:00 PM AMBULATORY - MEDICINE [facility] [place] [facility] Aug 28, 2021 03:01 PM AMBULATORY - MEDICINE [facility] [place] [facility] Aug 28, 2021 03:15 PM AMBULATORY - MEDICINE [facility] [place] [facility] Sep 03, 2021 04:00 PM AMBULATORY - PSYCHIATRY [facility] [place] [facility] Sep 16, 2021 03:30 PM AMBULATORY - PSYCHIATRY [facility] [place] [facility] Sep 17, 2021 04:00 PM AMBULATORY - PSYCHIATRY [facility] [place] [facility] Sep 24, 2021 09:45 AM AMBULATORY - NONE [facility] [place] [facility] Sep 25, 2021 09:00 AM AMBULATORY - PSYCHIATRY [facility] [place] [facility] Sep 26, 2021 04:00 PM AMBULATORY - PSYCHIATRY [facility] [place] [facility] Oct 01, 2021 07:00 AM AMBULATORY - PSYCHIATRY [facility] [place] [facility] Oct 02, 2021 10:00 AM AMBULATORY - PSYCHIATRY [facility] [place] [facility] Oct 04, 2021 09:00 AM AMBULATORY - PSYCHIATRY [facility] [place] [facility] Oct 07, 2021 11:00 AM AMBULATORY - PSYCHIATRY [facility] [place] [facility] Oct 08, 2021 09:00 AM AMBULATORY - PSYCHIATRY [facility] [place] [facility] Oct 09, 2021 10:00 AM AMBULATORY - PSYCHIATRY [facility] [place] [facility] Oct 15, 2021 02:30 PM AMBULATORY - NONE [place] [facility] [place] [facility] Lab Results: +/- 30 days of [...] [facility]N [place] [facility] [address] [facility] [address] Performing Lab: [facility] [place] [facility] [address] [facility] [address] THYROID T4 FREE(FT4) 1.36 0.6-1.6 Aug 07, 2021 11:28 AM [facility] [place] [facility] Specimen Type: SERUM HCS No comment enter ed. Ordering Provid er: DIMITRI SCRUGGS Report Released Date/Time: Aug 07, 2021 11:18 AM Reporting Lab: [facility] [place] [facility] [address] [facility] [address] Performing Lab: [facility] [place] [facility] [address] [facility] [address] TSH 0.48 0.35-5.00 Aug 07, 2021 [facility] VITAMIN D (25-OH) Specimen Type : SERUM 11:28 [facility] [place] [facility] No comment enter ed. Ordering Provid er: DIMITRI SCRUGGS Report Released Date/Time: Aug 07, 2021 11:18 AM Reporting Lab: [place] [facility] [place] [facility] [address] [facility] [address] Performing Lab: [facility] [place] [facility] [address] [facility] [address] VITAMIN D (25-OH) 34 20-50 Aug 07, 2021 [place] [facility] HEMOGLOBIN A1C PANEL Specimen T ype: BLOOD 11:28 AM [facility] Comment: Testin g performed by NGSP [...] Aug 07, 2021 11:18 AM Reporting Lab: [facility] [place] [facility] [address] [facility] [address] Performing Lab: [facility] [place] [facility] [address] [facility] [address] HEMOGLOBIN A1C 4.7 4.0-5.6 Aug 07, 2021 11:28 [facility] VITAMIN B12 Specimen Typ e: SERUM [place] [facility] No comment enter ed. Ordering Provid er: DIMITRI SCRUGGS Report Released Date/Time: Aug 07, 2021 11:18 AM Reporting Lab: [facility] [place] [facility] [address] [facility] [address] Performing Lab: [place] [facility] [address] [facility] [address] VITAMIN B12 409 200-900 Aug 07, 2021 11:28 [facility] LIVER FUNCTION Specimen Typ e: SERUM [place] [facility] No comment enter ed. Ordering Provid er: DIMITRI SCRUGGS Report Released Date/Time: Aug 07, 2021 11:18 AM Reporting Lab: [facility] [place] [facility] [address] [facility] [address] Performing Lab: [place] [facility] [place] [facility] [address] [facility] [address] PROTEIN,TOTAL 7.4 6.0-8.3 ALBUMIN 4.3 3.5-5.0 ALKALINE PHOSPHATASE 62 40-150 AST 26 5-34 ALT 27 0-55 BILIRUBIN, TOTAL 1.0 0.2-1.2 Aug 07, 2021 [place] [facility] LIPID PANEL, NON Specimen Type: SERUM 11:28 AM [place] [facility] No comment enter ed. Ordering Provid er: DIMITRI SCRUGGS Report Released Date/Time: Aug 07, 2021 11:18 AM Reporting Lab: [facility] [place] [facility] [address] [facility] [address] Performing Lab: [facility] [place] [facility] [address] [facility] [address] CHOLESTEROL 191 0-199 TRIGLYCERIDE 110 0-150 LDL calculated 125 0-129 CHOL/HDL 4.3 HDL CHOLESTEROL 44 40-60 Aug 07, 2021 [place] [facility] BASIC METABOLIC PANEL Specimen Type: SERUM 11:28 [facility] [place] [facility] (non-fasting) No comment enter ed. Ordering Provid er: DIMITRI SCRUGGS Report Released Date/Time: Aug 07, 2021 11:18 AM Reporting Lab: [facility] [place] [facility] [address] [facility] [address] Performing Lab: [facility] [place] [facility] [address] [facility] [address] UREA NITROGEN 17 7-25 GLUCOSE 81 65-100 SODIUM 139 135-145 POTASSIUM 4.3 3.5-5.0 CHLORIDE 105 100-110 CO2 24 20-30 CREATININE, Serum 1.18 0.50-1.40 eGFR (IDMS) 72 >60 Aug 07, 2021 11:28 AM [place] [facility] CBC Specimen Type: BLOOD HCS No comment enter ed. Ordering Provid er: DIMITRI SCRUGGS Report Released Date/Time: Aug 07, 2021 11:18 AM Reporting Lab: [facility] [place] [facility] [address] [facility] [address] Performing Lab: [facility] [place] [facility] [address] [facility] [address] WBC 4.66 4.50-11.00 RBC 5.38 4.23-5.66 HGB [...] NEVER USED [place] C NTRL [place] [facility] Encounter Notes: All associated encounter notes This section contains the clinical notes associated to the Encounter. Date/Time Encounter Note(s) Provider Source Aug 01, 2021 04:13 PM MENTAL HEALTH TELEPHONE ENCOUNTER NOTE: ANIVAL CARR [place] CN[facility] WSTRN LOCAL TITLE: TELEPHONE NOTE/MENTAL HEALTH [place] [facility] STANDARD TITLE: MENTAL HEALTH TELEPHONE ENCOUNTE R NOTE DATE OF NOTE: AUG 01, 2021@16:13 ENTRY DATE: AUG 01, 2021@16:13:37 AUTHOR: ANIVAL DEL ANGEL EXP COSIGNER: URGENCY: STATUS: COMPLETED Length of phone call: 5 minutes Diagnosis: PTSD/MDD Phone call to to meliton lock today's appointment. He stated he had to cancel due to COVID at his daughter's day care and he had to bring her home and watch her and couldn't get away. Discussed bid writer's up coming vacation and a next appointment for with bid writer. He stated on 08/23 his 's baby is due, so asked to schedule something a couple weeks after that. He was reminded of walk- in and crisis line should he have need f or support in the meantime. He thanked bid writer for the call and reschedule. /ivelisse/ ANIVAL DEL ANGEL [facility] CLINICAL FACTORER Signed: 08/01/2021 16:14
--- OUTSIDE RECORDS SUMMARY | 2022-04-18 10:11 | XMS_ITS ---
:1990 Author Organization Department [facility] Address [address] [place] [address] Support Name Relationship Address Phone TETE TRAN Unavailable [address] [facility] [place] [address] THOMAS MONTOYA Unavailable [address] [facility] [place] [address] Insurance Providers: All historical and current Section [...] Name to Policy Number Ojeda [facility] Aug 03, [id number] [phone] ROSINA CALLAHAN 2019 [id number] [facility] E DEPT Selected Encounter This section includes the information on record at [place] for the Encounter. Date/Time Encounter Type Encounter Description Reason Provider Source Jul 09, 2021 04:05 Outpatient Encounter TELEPHONE [facility] IHE Encounter Template Text not used by [place] Plan of Treatment: Future Appointments (+ 6 months) and Future Tests (+/- 45 days) The Plan of Treatment section includes future care activities for the patient from all [place] treatmentfacilities. This section includes future appointments and future orders which are active, pending orscheduled.Future Appointments This section includes appointments that were scheduled to occur 6 months from the date of the Encounter, up to a maximum of 20 appointments. The data comes from all [place] treatment facilities. Appointment Date/Time Appointment Type Appointment Facili ty Name Jul 11, 2021 01:00 PM [facility] Jul [...] [facility] Aug 28, 2021 03:01 PM [facility] [place] [facility] Aug 28, 2021 03:15 PM AMBULATORY - MEDICINE [facility] [place] [facility] Sep 03, 2021 04:00 PM AMBULATORY - PS[facility]CHIATRY [facility] [place] [facility] Sep 16, 2021 03:30 PM AMBULATORY - PS[facility]CHIATRY [facility] [place] [facility] Sep 17, 2021 04:00 PM AMBULATORY - PS[facility]CHIATRY [facility] [place] [facility] Sep 24, 2021 09:45 AM AMBULATORY - NONE [facility] [place] [facility] Sep 25, 2021 09:00 AM AMBULATORY - PS[facility]CHIATRY [facility] [place] [facility] Sep 26, 2021 04:00 PM AMBULATORY - PSYCHIATRY [facility] [place] [facility] Oct 01, 2021 07:00 AM AMBULATORY - PSYCHIATRY [facility] [place] [facility] Lab Results: +/- 30 days [...] Lab: [facility] [place] [facility] [address] [facility] [address] Performing Lab: [facility] [place] [facility] [address] [facility] [address] THYROID T4 FREE(FT4) 1.36 0.6-1.6 Aug 07, 2021 11:28 AM [facility] [place] TSH Specimen Type: SERUM [facility] No comment enter ed. Ordering Provid er: DIMITRI SCRUGGS Report Released Date/Time: Aug 07, 2021 11:18 AM Reporting Lab: [facility] [place] [facility] [address] [facility] [address] Performing Lab: [facility] [place] [facility] [address] [facility] [address] TSH 0.48 0.35-5.00 Aug 07, 2021 [facility] VITAMIN D (25-[place]) Specimen Type : SERUM 11:28 AM [place] [facility] No comment enter ed. Ordering Provid er: DIMITRI SCRUGGS Report Released Date/Time: Aug 07, 2021 11:18 AM Reporting Lab: [facility] [place] [facility] [address] [facility] [address] Performing Lab: [facility] [place] [facility] [address] [facility] [address] VITAMIN D (25-OH) 34 20-50 Aug 07, 2021 11:28 [facility] VITAMIN B12 Specimen Typ e: SERUM AM [place] [facility] No comment enter ed. Ordering Provid er: DIMITRI SCRUGGS Report Released Date/Time: Aug 07, 2021 11:18 AM Reporting Lab: [facility] [place] [facility] [address] [facility] [address] Performing Lab: [facility] [place] [facility] [address] [facility] [address] VITAMIN B12 409 200-900 Aug 07, 2021 [facility] LIPID PANEL, NON Specimen Type: SERUM 11:28 AM [place] [facility] FASTING No comment enter ed. Ordering Provid er: DIMITRI SCRUGGS Report Released Date/Time: Aug 07, 2021 11:18 AM Reporting Lab: [facility] [place] [facility] [address] [facility] [address] Performing Lab: [facility] [place] [facility] [address] [facility] [address] CHOLESTEROL 191 0-199 TRIGLYCERIDE 110 0-150 LDL calculated 125 0-129 CHOL/HDL 4.3 HDL CHOLESTEROL 44 40-60 Aug 07, 2021 11:28 [facility] LIVER FUNCTION Specimen Typ e: SERUM AM [place] [facility] No comment enter ed. Ordering Provid er: DIMITRI SCRUGGS Report Released Date/Time: Aug 07, 2021 11:18 AM Reporting Lab: [facility] [place] [facility] [address] [facility] [address] Performing Lab: [facility] [place] [facility] [address] [facility] [address] PROTEIN,TOTAL 7.4 6.0-8.3 ALBUMIN 4.3 3.5-5.0 ALKALINE PHOSPHATASE 62 40-150 AST 26 5-34 ALT 27 0-55 BILIRUBIN, TOTAL 1.0 0.2-1.2 Aug 07, 2021 [facility] BASIC METABOLIC PANEL Specimen Type: SERUM 11:28 AM [place] [facility] (non-fasting) No comment enter ed. Ordering Provid er: DIMITRI SCRUGGS Report Released Date/Time: Aug 07, 2021 11:18 AM Reporting Lab: [facility] [place] [facility] [address] [facility] [address] Performing Lab: [facility] [place] [facility] [address] [facility] [address] UREA NITROGEN 17 7-25 GLUCOSE 81 65-100 SODIUM 139 135-145 POTASSIUM 4.3 3.5-5.0 CHLORIDE 105 100-110 CO2 24 20-30 CREATININE, Serum 1.18 0.50-1.40 eGFR (IDMS) 72 >60 Aug 07, 2021 [facility] HEMOGLOBIN A1C PANEL Specimen T ype: BLOOD 11:28 AM [employer] Comment: Testin g performed by [employer] certified [...] Aug 07, 2021 11:18 AM Reporting Lab: [facility] [address] [facility] [address] Performing Lab: [facility] [address] [facility] [address] HEMOGLOBIN A1C 4.7 4.0-5.6 Aug 07, 2021 11:28 AM [facility] CBC Specimen Type: BLOOD [facility] No comment enter ed. Ordering Provid er: DIMITRI SCRUGGS Report Released Date/Time: Aug 07, 2021 11:18 AM Reporting Lab: [facility] [address] [facility] [address] Performing Lab: [facility] [address] [facility] [address] WBC 4.66 4.50-11.00 RBC 5.38 4.23-5.66 HGB 16.3 12.8-17 HCT 47.2 39.2-50.4 MCV 87.7 82-99 MCHC 34.5 30.8-35.1 PLT 247 140-360 RDW-CV 11.9 L 12.0-16.0 MCH 30.3 26.2-32.6 Social History: Smoking Status (Most current) and Tobacco Use (All prior to encounter date) This section includes the most current, and the historical, smoking and tobacco-related health factors from the [place] facility where the Encounter took place.Current Smoking Status This section includes the most current smoking, or tobacco-related health factor, from the [place] facility where the Encounter took place. Date/Time Current Smoking Status Comment Facility May 23, 2021 02:30 PM VA-TOBACCO NEVER USED [facility] [place] [facility] Encounter Notes: All associated encounter notes This section contains the clinical notes associated to the Encounter. Date/Time Encounter Note(s) Provider Source Jul 09, 2021 04:00 PM MENTAL HEALTH TELEPHONE ENCOUNTER NOTE: [facility] CARR [facility] LOCAL TITLE: TELEPHONE NOTE/MENTAL HEALTH [place] [facility] STANDARD TITLE: MENTAL HEALTH TELEPHONE ENCOUNTE R NOTE DATE OF NOTE: JUL 09, 2021@16:00 ENTRY DATE: JUL 09, 2021@16:04:34 AUTHOR: ANIVAL DEL ANGEL EXP COSIGNER: URGENCY: STATUS: COMPLETED Phone call to at agreed upon ian e for phone check in. 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 However he said he was doing good and felt he could wait to talk. Inquired as to his preference for a rescheduled appointment and he said next week wa s good. Agreed to appointment next week. /ivelisse/ ANIVAL DEL ANGEL [facility] CLINICAL SUPERINTENDENT OPERATING Signed: 07/09/2021 16:07
--- OUTSIDE RECORDS SUMMARY | 2022-04-18 10:11 | XMS_ITS | Encounter Summary ---
:1990 Author Organization Department [facility] Address [address] [place] [address] Support Name Relationship Address Phone TETE TRAN Unavailable [address] [facility] [place] [address] THOMAS MONTOYA Unavailable [address] [facility] [address] Insurance Providers: All historical and current Section [...] Number Ojeda [facility] Aug 03, [id number] [phone] ROSA MARIA ChapoWA PATIENT BEE GIMENEZ 2019 [id number] STEPHANIE JOHNSON [facility] E DEPT Selected Encounter This section includes the information on record at [facility] for the Encounter. Date/Time Encounter Type Encounter Reason Provider Source Description Jul 04, 2021 Outpatient TELEPHONE ICD-10-CM F43.10 MATY STUART 02:30 PM Encounter Post-traumatic ELYN stress disorder, unspecified with Provider Comments: Posttraumatic stress disorder ([facility] [id number]) IHE Encounter Template Text not used by [facility] Assessments - Encounter Diagnoses This section includes the primary and secondary diagnoses documented for the Encounter. Date/Time Primary/Secondary Diagnosis Name Provider Source Diagnosis Jul 04, 2021 PRIMARY Post-traumatic WINSTON STUART [facility] 02:30 PM stress disorder, [facility] [place] [facility] unspecified Jul 04, 2021 SECONDARY Major depressive WINSTON STUART [facility] 02:30 PM disorder, [facility] [place] [facility] recurrent, moderate Plan of Treatment: Future Appointments (+ 6 months) and Future Tests (+/- 45 days) The Plan of Treatment section includes future care activities for the patient [facility]. This section includes future appointments and [...] - MEDICINE [facility] [place] [facility] Jul 16, 2021 04:00 PM AMBULATORY - PSYCHIATRY [facility] [place] [facility] Jul 18, 2021 01:30 PM AMBULATORY - PSYCHIATRY [facility] [facility] Jul 25, 2021 02:30 PM AMBULATORY - PSYCHIATRY [facility] [facility] Jul 26, 2021 09:00 AM AMBULATORY - MEDICINE [facility] [place] [facility] Jul 30, 2021 11:30 AM AMBULATORY - PSYCHIATRY [facility] [place] [facility] Aug 07, 2021 11:00 AM AMBULATORY - MEDICINE [facility] [facility] Aug 13, 2021 07:30 AM AMBULATORY - NONE [facility] [facility] Aug 19, 2021 02:00 PM AMBULATORY - PSYCHIATRY [facility] [facility] Aug 28, 2021 10:20 AM AMBULATORY - MEDICINE [facility] [facility] Aug 28, 2021 03:00 PM AMBULATORY - MEDICINE [facility] [facility] Aug 28, 2021 03:01 PM AMBULATORY - MEDICINE [facility] [facility] Aug 28, 2021 03:15 PM AMBULATORY - MEDICINE [facility] [place] [facility] Sep 03, 2021 04:00 PM AMBULATORY - PSYCHIATRY [facility] [place] [facility] Sep 16, 2021 03:30 PM AMBULATORY - PSYCHIATRY [facility] [facility] Sep 17, 2021 04:00 PM AMBULATORY - PSYCHIATRY [facility] [facility] Sep 24, 2021 09:45 AM AMBULATORY - NONE [place] [facility] [place] [facility] Sep 25, 2021 09:00 AM AMBULATORY - PSYCHIATRY [place] [facility] [place] [facility] Sep 26, 2021 04:00 PM AMBULATORY - PSYCHIATRY [place] [facility] [place] [facility] Oct 01, 2021 07:00 AM [facility] Social History: Smoking Status [...] 23, 2021 02:30 PM VA-TOBACCO NEVER USED RI C N[facility]L WSN [facility] Encounter Notes: All associated encounter notes This section contains the clinical notes associated to the Encounter. Date/Time Encounter Note(s) Provider Source Jul 04, 2021 03:08 ACCOUNTING OF DISCLOSURES NOTE: MATY STUART [facility] PM LOCAL TITLE: STATE PRESCRIPTION DRUG MONITORING PROGRAM [facility] STANDARD TITLE: ACCOUNTING OF DISCLOSURES NOTE DATE OF NOTE: JUL 04, 2021@15:08:28 ENTRY DATE: JUL 04, 2021@15:08:28 AUTHOR: DENISE STUART EXP COSIGNER: URGENCY: STATUS: COMPLETED This PDMP query was submitted by Amaury Stuart. The clinical justification for this PDMP query i s to review controlled substances prescribed outside of the [facility], and any additional information that may become available, as an important compo nent of standard clinical care, and in accordance with [facility] policy. Patient information was shared with the PDMP [employer] [place]. No prescription(s) for controlled substances out side the [facility] were found in the last 90 days. /ivelisse/ DENISE STUART MD PSYCHIATRIST Signed: 07/04/2021 15:10 Jul 04, 2021 02:11 TELEPHONE ENCOUNTER NOTE: DENISE STUART CNTR WSTR[facility] PM LOCAL TITLE: TELEHEALTH TELEPHONE NOTE [facility] STANDARD TITLE: TELEPHONE ENCOUNTER NOTE DATE OF NOTE: JUL 04, 2021@14:11 ENTRY DATE: JUL 04, 2021@14:11:44 AUTHOR: DENISE STUART EXP COSIGNER: URGENCY: STATUS: COMPLETED Time Spent: 15 minutes Patient consents to telehealth telephone visit t esteban for mental health follow up. GEORGE MONTOYA, a 31 year old WHITE MALE had telehealth telephone visit today for mental health follow up. MENTAL HEALTH NOTE: had telehealth telephone visit for 15 mi n remotely for routine follow up. Two forms of identification was used. 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 He think s more of these fallen soldiers during this time of year. George also has been feeling more stresse d with his current work and doesn't feel he can leave or take time off due to financial impact it would have on his family. George says that he has shared w ith his how he has been feeling. He is working with Ramya also and he has the ammunition from his gun in his home. He feels this will wor k to keep him safe. He just went over his safety plan with Ramya again as well. He doesn't think he would act on his thoughts of self-harm. he does not believe going inpatient now would help him. He feels to the contrary it woul d increase his financial stress. Has been forgetting to take his medicati on every day. Says he thinks he misses a dose of something about 4-5 times a month. He isn't using the gabapentin maximally. SUBSTANCE ABUSE: Caffeine: denies Tobacco: denies Cocaine: denies Opioid: denies Alcohol: Says he doesn't drink alcohol v milvia much. He says he will drink a beer every few months. 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 DOSE INCREASE. 4) PRAZOSIN HCL 2MG CAP TAKE FOUR CAPSULES [...] Consciousness: Alert and fully o riented. Behavior: cooperative. Speech: Normal rate and volume. Mood/Affect: not good. Affect: constricted. Thought Production/Content: Logical, sequential & relevant to discussion. Perceptual Disturbances: None. Attention, concentration and memory based on ans wers to session questions: Good. Insight/Judgment: Both good. SI/HI: neither elicited today. Has repor christo some recent suicidal ideation with plan (using his gun), but de nies active intent. George has been able to remove the ammunition from his gun and keep the m separate and a considerable distance form eachother. George denies any active intent for self-harm. Ability to Provide informed consent: Yes. ASSESSMENT:31 year old WHITE MALE, prese [facility] today for mental health follow up. TREATMENT PLAN/ DISCUSSION/ RATIONALE: 1.::: Medication management: Reviewed medication s with George today. He continues on lexapro 20 mg daily, Wellbutrin SR 100 mg BID, Gabapentin 400 mg QID, Prazosin 8 mg qHS. Disc ussed with George either increasing the lexapro or the wellbutrin. He does not want to increase eit her of these. We talked about other options. He prefers to have something as n eeded for anxiety. Will order ativan 0.5 mg daily prn for his acute increased anxiety. He has used this medication safely in the past. The risks, benefi ts, side effects, and alternatives to ativan discussed with George an d his questions answered. We will keep this medication to a temporary use and only 7 at a time. Encouraged him to use it sparingly (if he can to less than daily). George was offered inpatient admission if he would want soumya t. He does not want that at this time. I don't believe George is commitable against hi s will as put forth by the [facility]. He has been able to safely manage his depression and SI in the past with support. He continues to work with his therapist Ramya Hernandez regularly. Will look at also meeting with Lucien wolfe more frequently during this difficult time to offer more support. Next Visit: in 2 weeks. . Patient is aware of how to access [facility] open acce MH clinic in [facility] during weekdays for immediate mental health n [...] the community (i ncluding Crisis Line, [place], [place] National Suicide Prevention Lifeline: 0-692- 214-TALK). Patient is instructed to contact me should [...] whether with a VA or non-VA provider. Relationship Health & Safety Screen: Environment is safe to proceed INFORMED CONSENT TO SCREEN & DOCUMENT: Individual consents to documentation? Yes Individual consents to proceed with screening? Yes PRIMARY SCREEN: In the past 12 months, how often did a current or former intimate partner (e.g., boyfriend, girlfriend, , , se xual partner): Scream or curse at you: Never Insult or talk down to you: Never Threaten you with harm: Never Physically hurt you: Never In the past 12 months, how often did a current or former intimate partner force or pressure you to have sexual co ntact against your will, or when you were unable to say no? Never PRIMARY SCREEN RESULTS: The individual denied all forms of IPV above (i .e., answered never to all 5 items above). ??The HITS tool is US copyright protected by Roddy Garza MD, and the user has full rights to use it throughout the [employer] system. DISPOSITION: Provided general IPV education. PCL Needed for PTSD: The patient is no longer in active treatment fo r PTSD. /es/ DENISE STUART MD PSYCHIATRIST Signed: 07/04/2021 23:46
--- OUTSIDE RECORDS SUMMARY | 2022-04-18 10:11 | XMS_ITS | Encounter Summary ---
:1990 Author Organization Department [facility] Address [address] [place] [address] Support Name Relationship Address Phone TETE TRAN Unavailable 36 [facility] [phone] [address] [place] [address] THOMAS MONTOYA Unavailable 6 [facility] [place] [address] Insurance Providers: All historical and current Section [...] [facility] Aug 03, [id number] [phone] ROSINA CALLAHAN 2019 [id number] STEPHANIE JOHNSON [facility] DEPT Selected Encounter This section includes the information on record at [place] for the Encounter. Date/Time Encounter Type Encounter Description Reason Provider Source Jul 03, 2021 12:29 Outpatient Encounter TELEPHONE TRIAGE PM IHE Encounter Template Text not used by [place] Plan of Treatment: Future Appointments (+ 6 months) and Future Tests (+/- 45 days) The Plan of Treatment section includes future care activities for the patient from all [place] treatmentfacilities. This section includes future appointments and future orders which are active, pending orscheduled.Future Appointments This section includes appointments that were scheduled to occur 6 months from the date of the Encounter, up to a maximum of 20 appointments. The data comes from all [place] treatment facilities. Appointment Date/Time Appointment Type Appointment Facili ty Name Jul 04, 2021 02:30 PM AMBULATORY - PSYCHIATRY [facility] Jul 11, 2021 01:00 PM AMBULATORY [facility] MEDICINE [facility] [place] [facility] Jul 16, 2021 04:00 PM AMBULATORY - PS[facility]IATRY [facility] [place] [facility] Jul 18, 2021 01:30 PM AMBULATORY - PSYCHIATRY [facility] [place] [facility] Jul 25, 2021 02:30 PM AMBULATORY - PSYCHIATRY [facility] [place] [facility] Jul 26, 2021 09:00 AM AMBULATORY - MEDICINE [facility] [place] [facility] Jul 30, 2021 11:30 AM AMBULATORY - PS[facility]CHIATRY [facility] [place] [facility] Aug 07, 2021 11:00 AM AMBULATORY - MEDICINE [facility] [place] [facility] Aug 13, 2021 07:30 AM AMBULATORY - NONE [facility] [place] [facility] Aug 19, 2021 02:00 PM AMBULATORY - PSYCHIATRY [facility] [place] [facility] Aug 28, 2021 10:20 AM AMBULATORY - MEDICINE [facility] [place] [facility] Aug 28, 2021 03:00 PM AMBULATORY - MEDICINE [facility] [place] [facility] Aug 28, 2021 03:01 PM AMBULATORY - MEDICINE [facility] [place] [facility] Aug 28, 2021 03:15 PM AMBULATORY - MEDICINE [facility] [place] [facility] Sep 03, 2021 04:00 PM AMBULATORY - PS[facility]CHIATRY [facility] [place] [facility] Sep 16, 2021 03:30 PM AMBULATORY - PSYCHIATRY [facility] [place] [facility] Sep 17, 2021 04:00 PM AMBULATORY - PSYCHIATRY [facility] [place] [facility] Sep 24, 2021 09:45 AM AMBULATORY - NONE [facility] [place] [facility] Sep 25, 2021 09:00 AM AMBULATORY - PSYCHIATRY [facility] [place] [facility] Sep 26, 2021 04:00 PM AMBULATORY - PSYCHIATRY [facility] [place] [facility] Social History: Smoking Status (Most current) [...] 23, 2021 02:30 PM VA-TOBACCO NEVER USED [place] [facility] Encounter Notes: All associated encounter notes This section contains the clinical notes associated to the Encounter. Date/Time Encounter Note(s) Provider Source Jul 03, 2021 12:29 TELEPHONE ENCOUNTER NOTE: MAGY AUSTIN CNTRL WSTRN PM LOCAL TITLE: VISN 1 CCC ACTION REQUIRED [place] [facility] STANDARD TITLE: TELEPHONE ENCOUNTER NOTE DATE OF NOTE: JUL 03, 2021@12:29:51 ENTRY DATE: JUL 03, 2021@12:31:29 AUTHOR: MAGY AUSTIN EXP COSIGNER: URGENCY: STATUS: COMPLETED VISN 1 CCC ACTION REQUIRED Has ADDENDA The patient, GEORGE MONTOYA ([id number]) called the call center. The following identifiers were used to verify th is patient: . SSN. Contact Type of call: ADMINISTRATIVE. Caller Response: ADM CALL RESOLVED Caller Area: [facility] PCMM Provider Info: LOCAL - [place] [facility] [facility] ([phone]) PACT: NO PACT 7 (Focus: Primary Care Only) Primary Care Provider: Raza Wylie PH ONE:[phone] Cmv Driver: Eris Reynolds PHONE :[phone] Clinical Associate: Aram Francisco PHONE:[phone] Edger Feeder: Kayla Orourke PHONE:[phone] PACT Clinical Pharmacist: Dipti Pittman PHONE:[phone] Clinical POC: Cmv Driver Eris Reynolds PHONE:[phone] Administrative POC: Edger Feeder Kayla Orourke PHONE:[phone] MH: [facility] MHC TEAM ([facility]) Medical Assistant Prn Ramya Hernandez PHON [phone] Author: MAGY AUSTIN Comments: REQUESTING TO DISCUSS OPTIONS OF VASECTO MY WITH PCP. CAN BE REACHED AT Evaluation/Management Code: HC PRO PHONE CALL 5- 10 MIN ([phone]). Starting at: 07/03/2021 @ 12:29:51 PM Ending at: 07/03/2021 @ 12:30:43 PM Length: 0 minutes. Chief Complaint: Not applicable to call. Class Code: Other specified counseling. Patient's Email Address: [email or web address] Zonia /ivelisse/ MAGY AUSTIN ADVANCED RAG WASHER Signed: 07/03/2021 12:31 Receipt Acknowledged By: 07/03/2021 12:50 /ivelisse/ ERIS REYNOLDS RN MSN REGISTERED NURSE * AWAITING SIGNATURE * ARAM FRANCISCO 07/03/2021 ADDENDUM STATUS: COMPLETED please schedule appt with PCP /ivelisse/ ERIS REYNOLDS RN MSN REGISTERED NURSE Signed: 07/03/2021 12:49 Receipt Acknowledged By: * AWAITING SIGNATURE * KAYLA OROURKE
--- OUTSIDE RECORDS SUMMARY | 2022-04-18 10:11 | XMS_ITS | Encounter Summary ---
:1990 Author Organization Department [facility] rs Address [address] [place] [address] Support Name Relationship Address Phone TETE TRAN Unavailable 36 [facility] [phone] [address] [place] [address] THOMAS MONTOYA Unavailable 6 [place] [address] Insurance Providers: All historical and current Section [...] Ojeda [facility] Aug 03, [id number] [phone] ROSA MARIA CowanMD PATIENT BEE GIMENEZ [id number] STEPHANIE JOHNSON [facility] DEPT Selected Encounter This section includes the information on record at [place] for the Encounter. Date/Time Encounter Type Encounter Reason Provider Source Description Jul 16, 2021 HC PRO PHONE TELEPHONE ICD-10-CM F43.10 MER,DA 04:00 PM CALL 11-20 MIN Post-traumatic IE stress disorder, unspecified with Provider Comments: Posttraumatic stress disorder ([facility] [id number]) IHE Encounter Template Text not used by [place] Assessments - Encounter Diagnoses This section includes the primary and secondary diagnoses documented for the Encounter. Date/Time Primary/Secondary Diagnosis Name Provider Source Diagnosis Jul 16, 2021 PRIMARY Post-traumatic MER,VERO [place] CNT WS TRN 04:00 PM stress disorder, [facility] [place] [facility] unspecified Jul 16, 2021 SECONDARY Major depressive MER,VERO [place] CNT WSTRN 04:00 PM disorder, [facility] [facility] recurrent, moderate Plan of Treatment: Future Appointments (+ 6 months) and Future Tests (+/- 45 days) The Plan of Treatment section includes future care activities for the patient from all VA treatmentfafirsthealthities. This section includes future appointments and future orders which are active, pending orscheduled.Future Appointments This section includes appointments that were scheduled to occur 6 months from the date of the Encounter, up to a maximum of 20 appointments. The data comes from all [place] treatment facilities. Appointment Date/Time Appointment Type Appointment Facili ty Name Jul 18, 2021 01:30 PM AMBULATORY - PSYCHIATRY [facility] [place] [facility] Jul 25, 2021 02:30 PM AMBULATORY - PSYCHIATRY [facility] [place] [facility] Jul 26, 2021 09:00 AM AMBULATORY - MEDICINE [facility] [place] [facility] Jul 30, 2021 11:30 AM AMBULATORY - PSYCHIATRY [facility] [place] [facility] Aug 07, 2021 11:00 AM AMBULATORY - MEDICINE [facility] [place] [facility] Aug 13, 2021 07:30 AM AMBULATORY - NONE [facility] [place] [facility] Aug 19, 2021 02:00 PM AMBULATORY - PSYCHIATRY [facility] [place] [facility] Aug 28, 2021 10:20 AM AMBULATORY - MEDICINE [facility] [place] [facility] Aug 28, 2021 03:00 PM AMBULATORY - MEDICINE [facility] [place] [facility] Aug 28, 2021 03:01 PM AMBULATORY - MEDICINE [facility] [place] [facility] Aug 28, 2021 03:15 PM AMBULATORY - MEDICINE [facility] [place] [facility] Sep 03, 2021 04:00 PM AMBULATORY - PSYCHIATRY [facility] [place] [facility] Sep 16, 2021 03:30 PM AMBULATORY - [...] 04, 2021 09:00 AM AMBULATORY - PSYCHIATRY [facility] [place] [facility] Lab Results: +/- [...] CN[facility]L [facility] [place] [facility] [address] [facility] [address] Performing Lab: [facility] [place] [facility] [address] [facility] [address] THYROID T4 FREE(FT4) 1.36 0.6-1.6 Aug 07, 2021 [facility] VITAMIN D (25-OH) Specimen Type : SERUM 11:28 AM [place] [facility] No comment enter ed. Ordering Provid er: DIMITRI SCRUGGS Report Released Date/Time: Aug 07, 2021 11:18 AM Reporting Lab: [facility] [place] [facility] [address] [facility] [address] Performing Lab: [facility] [place] [facility] [address] [facility] [address] VITAMIN D (25-OH) 34 20-50 Aug 07, 2021 11:28 AM [facility] [place] [facility]SH Specimen Type: SERUM HCS No comment enter ed. Ordering Provid er: DIMITRI SCRUGGS Report Released Date/Time: Aug 07, 2021 11:18 AM Reporting [facility]: [facility] [address] [facility] [address] Performing Lab: [facility] [address] [facility] [address] TSH 0.48 0.35-5.00 Aug 07, 2021 11:28 [facility] VIT[facility]IN B12 Specimen Typ e: SERUM AM [facility] No comment enter ed. Ordering Provid er: DIMITRI SCRUGGS Report Released Date/Time: Aug 07, 2021 11:18 AM Reporting Lab: [facility] [address] [facility] [address] Performing Lab: [facility] [address] [facility] [address] VITAMIN B12 409 200-900 Aug 07, 2021 [facility] LIPID PANEL, NON Specimen Type: SERUM 11:28 AM [facility] FASTING No comment enter ed. Ordering Provid er: DIMITRI SCRUGGS Report Released Date/Time: Aug 07, 2021 11:18 AM Reporting Lab: [facility] [address] [facility] [address] Performing Lab: [facility] [address] [facility] [address] CHOLESTEROL 191 0-199 TRIGLYCERIDE 110 0-150 LDL calculated 125 0-129 CHOL/HDL 4.3 HDL CHOLESTEROL 44 40-60 Aug 07, 2021 [facility] HEMOGLOBIN A1C PANEL Specimen T ype: BLOOD 11:28 AM [facility] Comment: Testin g performed by NGSP certified Mej[employer] with CV <2%. The Mejia HgA1C [...] Aug 07, 2021 11:18 AM Reporting Lab: [facility] [address] [facility] [address] Performing Lab: [facility] [place] [facility] [address] [facility] [address] HEMOGLOBIN A1C 4.7 4.0-5.6 Aug 07, 2021 [facility] BASIC METABOLIC PANEL Specimen Type: SERUM 11:28 [facility] [place] [facility] (non-fasting) No comment enter ed. Ordering Provid er: DIMITRI SCRUGGS Report Released Date/Time: Aug 07, 2021 11:18 AM Reporting Lab: [facility] [place] [facility] [address] [facility] [address] Performing Lab: [place] [facility] [place] [facility] [address] [facility] [address] UREA NITROGEN 17 7-25 GLUCOSE 81 65-100 SODIUM 139 135-145 POTASSIUM 4.3 3.5-5.0 CHLORIDE 105 100-110 CO2 24 20-30 CREATININE, Serum 1.18 0.50-1.40 eGFR (IDMS) 72 >60 Aug 07, 2021 11:28 [facility] LIVER FUNCTION Specimen Typ e: SERUM [facility] [place] [facility] No comment enter ed. Ordering Provid er: DIMITRI SCRUGGS Report Released Date/Time: Aug 07, 2021 11:18 AM Reporting Lab: [facility] [place] [facility] [address] [facility] [address] Performing Lab: [place] [facility] [place] [facility] [address] [facility] [address] PROTEIN,TOTAL 7.4 6.0-8.3 ALBUMIN 4.3 3.5-5.0 ALKALINE PHOSPHATASE 62 40-150 AST 26 5-34 ALT 27 0-55 BILIRUBIN, TOTAL 1.0 0.2-1.2 Aug 07, 2021 11:28 AM [facility] [place] CBC Specimen Type: BLOOD HCS No comment enter ed. Ordering Provid er: DIMITRI SCRUGGS Report Released Date/Time: Aug 07, 2021 11:18 AM Reporting Lab: [facility] [place] [facility] [address] [facility] [address] Performing Lab: [facility] [place] [facility] [address] [place] [address] WBC 4.66 4.50-11.00 RBC 5.38 4.23-5.66 HGB [...] PM VA-TOBACCO NEVER USED [place] C N[facility]L TR[facility] Encounter Notes: All associated encounter notes This section contains the clinical notes associated to the Encounter. Date/Time Encounter Note(s) Provider Source Jul 16, 2021 04:00 PM MENTAL HEALTH TELEPHONE ENCOUNTER NOTE: ANIVAL CARR [place] CN[facility]L WSTRN LOCAL TITLE: TELEPHONE NOTE/MENTAL HEALTH [facility] STANDARD TITLE: MENTAL HEALTH TELEPHONE ENCOUNTE R NOTE DATE OF NOTE: JUL 16, 2021@16:00 ENTRY DATE: JUL 16, 2021@16:17:04 AUTHOR: ANIVAL DEL ANGEL EXP COSIGNER: URGENCY: STATUS: COMPLETED Diagnosis: PTSD; MDD Length of call: 14 minutes Phone call to for check in as agreed upo n. shared he's doing all right , with continued stress due to holida ys and anniversary dates of combat trauma. He shared he was laid off from his job, which he explained meant that the job he was assigned to was completed, and he has to wait until his name comes up on the list for ano ther job. 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 He shared he had some acute anxiety on Chri stmas and tried to breathe through it. He tried 20 minutes of yoga yesterday and found that helpful. He requested another referral for acupuncture, as he never followed through on the last one as he hadn't gotten his COVID vaccine yet. He re quested handbook writer place another referral. Assessed s/i. He s aid he is still having occasional thoughts but they are not specific and he denied plan/intent. He s aid he still has his gun and ammunition . Provided support and refle ctive listening, and encouragement for his effort s at managing his sxs. Discussed possibility of his coming in for his therapy ap pointments now that he is laid off. He said he would like to do that. Agreed to an appointment next w blair. /ivelisse/ ANIVAL DEL ANGEL OPERATION SHIFT SUPERVISOR CLINICAL ICE CREAM FREEZER ASSISTANT Signed: 07/16/2021 16:21
--- OUTSIDE RECORDS SUMMARY | 2022-04-18 10:12 | XMS_ITS | Encounter Summary ---
:1990 Author Organization Department [facility] rs Address [address] [place] [address] Support Name Relationship Address Phone TETE TRAN Unavailable [address] [facility] [place] [address] THOMAS MONTOYA Unavailable 6 [facility] [place] [address] Insurance Providers: All historical and current Section Date Range: From patient's date of to the date document was created.This section includes the names of all active insurance providers for the patient. Insurance Type of Plan Start of End of Group Member Insurance Policy P atient's Provider Coverage Name Policy Policy Number ID Provider's Ojeda's Relationship Coverage Coverage Telephone Name to Policy Number Ojeda [facility] Aug 03, [id number] [phone] ALIAROSINA Mane 2019 [id number] STEPHANIE JOHNSON [facility] DEPT Selected Encounter This section includes the information on record at [place] for the Encounter. Date/Time Encounter Type Encounter Description Reason Provider Source Jun 19, 2021 10:13 Outpatient Encounter COMMUNITY CARE AM CONSULT IHE Encounter Template Text not used by [place] Plan of Treatment: Future Appointments (+ 6 months) and Future Tests (+/- 45 days) The Plan of Treatment section includes future care activities for the patient from all [place] treatmentfacilities. This section includes future appointments and future orders which are active, pending orscheduled.Future Appointments This section includes appointments that were scheduled to occur 6 months from the date of the Encounter, up to a maximum of 20 appointments. The data comes from all [place] treatment facilities. Appointment Date/Time Appointment Type Appointment Facili ty Name Jul 02, 2021 04:00 PM AMBULATORY - PSYCHIATRY [facility] Jul 03, 2021 12:00 PM AMBULATORY - PSYCHIATRY [facility] [place] [facility] Jul 04, 2021 02:30 PM AMBULATORY - PSYCHIATRY [facility] [place] [facility] Jul 11, 2021 01:00 PM AMBULATORY - MEDICINE [facility] [place] [facility] Jul 16, 2021 04:00 PM AMBULATORY - PSYCHIATRY [facility] [place] [facility] Jul 18, 2021 01:30 PM AMBULATORY - PSYCHIATRY [facility] [place] [facility] Jul 25, 2021 02:30 PM AMBULATORY - PSYCHIATRY [facility] [place] [facility] Jul 26, 2021 09:00 AM AMBULATORY - MEDICINE [facility] [place] [facility] Jul 30, 2021 11:30 AM AMBULATORY - PSYCHIATRY [facility] [place] [facility] Aug 07, 2021 11:00 AM AMBULATORY - MEDICINE [facility] [place] [facility] Aug 13, 2021 07:30 AM AMBULATORY - NONE [facility] [place] [facility] Aug 19, 2021 02:00 PM AMBULATORY - PSYCHIATRY [facility] [place] [facility] Aug 28, 2021 10:20 AM AMBULATORY - MEDICINE [facility] [place] [facility] Aug 28, 2021 03:00 PM AMBULATORY - MEDICINE [facility] [place] [facility] Aug 28, 2021 03:01 PM AMBULATORY - MEDICINE [facility] [place] [facility] Aug 28, 2021 03:15 PM AMBULATORY - MEDICINE [facility] [place] [facility] Sep 03, 2021 04:00 PM AMBULATORY - PSYCHIATRY [facility] [place] [facility] Sep 16, 2021 03:30 PM AMBULATORY - PSYCHIATRY [facility] [place] [facility] Sep 17, 2021 04:00 PM AMBULATORY - PSYCHIATRY [facility] [place] [facility] Sep 24, 2021 09:45 AM AMBULATORY - NONE [facility] [place] [facility] Social History: Smoking Status (Most current) and Tobacco Use (All prior to encounter date) This section includes the most current, and the historical, smoking and tobacco-related health factors from the VA facility where the Encounter took place.Current Smoking Status This section includes the most current smoking, or tobacco-related health factor, from the [place] facility where the Encounter took place. Date/Time Current Smoking Status Comment Facility May 23, 2021 02:30 PM VA-TOBACCO NEVER USED [place] C [facility]L [facility] [place] [facility] Encounter Notes: All associated encounter notes This section contains the clinical notes associated to the Encounter. Date/Time Encounter Note(s) Provider Source Jun 19, 2021 10:13 AM NONVA NOTE: MICHELLE CHAPIN [facility] LOCAL TITLE: COMMUNITY CARE COORDINATION PLAN STANDARD TITLE: NONVA NOTE DATE OF NOTE: JUN 19, 2021@10:13 ENTRY DATE: JUN 19, 2021@10:13:30 AUTHOR: MICHELLE CHAPIN EXP COSIGNER: URGENCY: STATUS: COMPLETED [place] self-presented to community emergency fa cility Emergency Notification Intake Date Presenting to the Facility: May [facility], [facility] Hospital Name: Hospital: [place], [place] [phone] Address: City: [place] State: Zip Code: Phone : Chief complaint: [id number] - Lumbago with sciatica, right side Primary Diagnosis: Patient Admitted? No Community Facility Point of Contact: Name: Jerman info from [employer] /ivelisse/ MICHELLE BLANDON Signed: 06/19/2021 10:14 Receipt Acknowledged By: * AWAITING SIGNATURE * CLAUDETTE SHAFER * AWAITING SIGNATURE * NIRMAL SELBY * AWAITING SIGNATURE * NIRMAL BELTRE * AWAITING SIGNATURE * DIMITRI SCRUGGS
--- OUTSIDE RECORDS SUMMARY | 2022-04-18 10:12 | XMS_ITS | Encounter Summary ---
:1990 Author Organization Department [facility] rs Address [address] [place] [address] Support Name Relationship Address Phone TETE TRAN Unavailable [address] [place] [address] THOMAS MONTOYA Unavailable [address] [place] [address] Insurance Providers: All historical and current Section [...] Ojeda [facility] Aug 03, [id number] [phone] ALIAROSINA Mane PATIENT BEE GIMENEZ 2019 [id number] STEPHANIE JOHNSON [facility] DEPT Selected Encounter This section includes the information on record at [place] for the Encounter. Date/Time Encounter Type Encounter Description Reason Provider Source Jun 16, 2021 12:00 Outpatient Encounter EVENT (HISTORICAL) AM IHE Encounter Template Text not used by [place] Plan of Treatment: Future Appointments (+ 6 months) and Future Tests (+/- 45 days) The Plan of Treatment section includes future care activities for the patient from all [place] treatmentfacilities. This section includes future appointments and future orders which are active, pending orscheduled.Future Appointments This section includes appointments that were scheduled to occur 6 months from the date of the Encounter, up to a maximum of 20 appointments. The data comes from all [place] treatment facilities. Appointment Date/Time Appointment Type Appointment Facili ty Name Jun 18, 2021 04:00 PM AMBULATORY - PSYCHIATRY [facility] Jul 02, 2021 04:00 PM AMBULATORY [...] [facility] [place] [facility] Sep 16, 2021 03:30 PM AMBULATORY - PSYCHIATRY [facility] [place] [facility] Sep 17, 2021 04:00 PM AMBULATORY - PSYCHIATRY [facility] [place] [facility] Social History: Smoking Status (Most current) [...] USED [facility] C [facility] [place] [facility] Encounter Notes: All associated encounter notes This section contains the clinical notes associated to the Encounter. Date/Time Encounter Note(s) Provider Source Jun 16, 2021 12:00 AM NONVA NOTE: [facility] LOCAL TITLE: NON-VA HOSPITALIZATIONS/ER [place] [facility] STANDARD TITLE: NONVA NOTE DATE OF NOTE: JUN 16, 2021 ENTRY DATE: JUL 05@11:46:52 AUTHOR: CONCEPCION DORAN EXP COSIGNER: URGENCY: STATUS: COMPLETED VistA Imaging - Scanned Document SCANNED DOCUMENT SIGNATURE NOT REQUIRED Electronically Filed: 07/05/2021 by: CONCEPCION DROAN STAFF NUCLEAR WEAPONS OFFICER
--- OUTSIDE RECORDS SUMMARY | 2022-04-18 10:12 | XMS_ITS ---
:1990 Author Organization Department [facility] rs Address [address] [place] [address] Support Name Relationship Address Phone TETE TRAN Unavailable 36 [facility] [phone] [address] [place] [address] THOMAS MONTOYA Unavailable 6 [facility] [place] [address] Insurance Providers: All historical and current Section [...] [facility] Aug 03, [id number] [phone] ROSA MARIA ChapoMD PATIENT BEE GIMENEZ 2019 [id number] STEPHANIE JOHNSON [facility] ORGAN E DEPT Selected Encounter This section includes the information on record at VA for the Encounter. Date/Time Encounter Type Encounter Reason Provider Source Description Jul 03, 2021 HC PRO PHONE TELEPHONE ICD-10-CM F43.10 MER,DA 12:00 PM CALL 11-20 MIN Post-traumatic IE stress disorder, unspecified with Provider Comments: Posttraumatic stress disorder ([facility] [id number]) IHE Encounter Template Text not used by VA Assessments - Encounter Diagnoses This section includes the primary and secondary diagnoses documented for the Encounter. Date/Time Primary/Secondary Diagnosis Name Provider Source Diagnosis Jul 03, 2021 PRIMARY Post-traumatic MER,VERO MD CNTR WS TRN 12:00 PM stress disorder, [facility] unspecified Jul 03, 2021 SECONDARY Major depressive MER,VERO MD CNTR WSTRN 12:00 PM disorder, [facility] recurrent, moderate Plan of Treatment: Future Appointments (+ 6 months) and Future Tests (+/- 45 days) The Plan of Treatment section includes future care activities for the patient from all [facility]. This section includes future appointments and future [...] AMBULATORY - PSYCHIATRY [facility] [place] [facility] Jul 11, 2021 01:00 PM AMBULATORY - MEDICINE [facility] [place] [facility] Jul 16, 2021 04:00 PM AMBULATORY - PSYCHIATRY [facility] [place] [facility] Jul 18, 2021 01:30 PM AMBULATORY - PSYCHIATRY [facility] [place] [facility] Jul 25, 2021 02:30 PM AMBULATORY - PSYCHIATRY [facility] [place] [facility] Jul 26, 2021 09:00 AM AMBULATORY - MEDICINE [facility] [place] [facility] Jul 30, 2021 11:30 AM AMBULATORY - PSYCHIATRY [facility] [place] [facility] Aug 07, 2021 11:00 AM AMBULATORY - MEDICINE [facility] [place] [facility] Aug 13, 2021 07:30 AM AMBULATORY - NONE [facility] [place] [facility] Aug 19, 2021 02:00 PM AMBULATORY - PSYCHIATRY [facility] [place] [facility] Aug 28, 2021 10:20 AM AMBULATORY - MEDICINE [facility] [place] [facility] Aug 28, 2021 03:00 PM AMBULATORY - MEDICINE [facility] [place] [facility] Aug 28, 2021 03:01 PM AMBULATORY - MEDICINE [facility] [place] [facility] Aug 28, 2021 03:15 PM AMBULATORY - MEDICINE [facility] [place] [facility] Sep 03, 2021 04:00 PM AMBULATORY - PSYCHIATRY [facility] [place] [facility] Sep 16, 2021 03:30 PM AMBULATORY - PSYCHIATRY [facility] [place] [facility] Sep 17, 2021 04:00 PM [facility] [place] [facility] Sep 24, 2021 09:45 AM AMBULATORY - NONE [place] CNTRL [place] [facility] Sep 25, 2021 09:00 AM [facility] Sep 26, 2021 04:00 PM [facility] Social History: Smoking Status (Most current) [...] 02:30 PM VA-TOBACCO [facility] Encounter Notes: All associated encounter notes This section contains the clinical notes associated to the Encounter. Date/Time Encounter Note(s) Provider Source Jul 03, 2021 12:00 PM MENTAL HEALTH TELEPHONE ENCOUNTER NOTE: ANIVAL CARR [facility] LOCAL TITLE: TELEPHONE NOTE/MENTAL HEALTH [facility] STANDARD TITLE: MENTAL HEALTH TELEPHONE ENCOUNTE R NOTE DATE OF NOTE: JUL 03, 2021@12:00 ENTRY DATE: JUL 03, 2021@13:44:21 AUTHOR: ANIVAL DEL ANGEL COSIGNER: URGENCY: STATUS: COMPLETED Diagnosis: PTSD; MDD Length of phone call: 14 minutes Phone call for check in with as agreed upon due to recent s/i (see note by investment underwriter yesterday). Vetera n said he was doing better. He shared with his some of his feelings (that it's a hard time of y ear with trauma anniversaries, and his wanti ng her to get help for herself, that he can't be her therapist, and her stress is stressful f or him right now). He said it was hard at first to get it out, but he did so successfully and she seemed to hear. They made the plan that she would take their daughter this weekend to her mother's and would have the weekend to himself. Paul e said he didn't go to his mother's last night, but did put the gun in the basement and the ammo in the attic. He said it felt okay to do this and he understands the rationale. He said he is looking forward to the weekend to have chanell e time to relax, exercise, be outside, watch Netflix, and just do what he wants. Discussed the importance of having time to relax with all the stress. Vetera n was calm and mental status sounded, and was reported to be, improved. Agree d to talk again next week for extra support. /ivelisse/ ANIVAL DEL ANGEL WAX CUTTER CLINICAL PRODUCTION TOOL ENGINEER Signed: 07/03/2021 13:50 Receipt Acknowledged By: * AWAITING SIGNATURE * AGUSTIN BURT
--- OUTSIDE RECORDS SUMMARY | 2022-04-18 10:12 | XMS_ITS | Encounter Summary ---
:1990 Author Organization Department [facility] rs Address [address] [place] [address] Support Name Relationship Address Phone TETE TRAN Unavailable 36 [facility] [place] [address] THOMAS MONTOYA Unavailable 6 [facility] [place] [address] Insurance Providers: All historical and current Section Date Range: From patient's date of to the date document was created.This section includes the names of all active insurance providers for the patient. Insurance Type of Plan Start of End of Group Member Insurance Policy P atient's Provider Coverage Name Policy Policy Number ID Provider's Ojeda's Relationship Coverage Coverage Telephone Name to Policy Number Ojeda [facility] Aug 03, [id number] [phone] ROSA MARIA ChapoTN PATIENT BEE GIMENEZ 2019 [id number] STEPHANIE JOHNSON [facility] ORGAN E DEPT Selected Encounter This section includes the information on record at VA for the Encounter. Date/Time Encounter Type Encounter Reason Provider Source Description Jul 02, 2021 PSYTX W PT 45 TELEPHONE ICD-10-CM F43.10 MERLUCINDA T 04:00 PM MINUTES Post-traumatic IE stress disorder, unspecified with Provider Comments: Posttraumatic stress disorder ([facility] [id number]) IHE Encounter Template Text not used by VA Assessments - Encounter Diagnoses This section includes the primary and secondary diagnoses documented for the Encounter. Date/Time Primary/Secondary Diagnosis Name Provider Source Diagnosis Jul 02, 2021 PRIMARY Post-traumatic MERDAI [place] CNTRL WS TRN 04:00 PM stress disorder, [facility] unspecified Jul 02, 2021 SECONDARY Major depressive MERDAI ND CNTR WSTRN 04:00 PM disorder, [facility] recurrent, moderate Plan of Treatment: Future Appointments (+ 6 months) and Future Tests (+/- 45 days) The Plan of Treatment section includes future care activities for the patient from all [facility]. This section includes future appointments and future orders which are active, pending orscheduled.Future Appointments This section includes appointments that were scheduled to occur 6 months from the date of the Encounter, up to a maximum of 20 appointments. The data comes from all [place] treatment facilities. Appointment Date/Time Appointment Type Appointment Facili ty Name Jul 03, 2021 12:00 PM AMBULATORY - PSYCHIATRY [facility] [place] [facility] Jul 04, 2021 02:30 PM AMBULATORY - PSYCHIATRY [facility] [place] [facility] Jul 11, 2021 01:00 PM AMBULATORY - MEDICINE [place] [facility] [place] [facility] Jul 16, 2021 04:00 PM AMBULATORY - PSYCHIATRY [facility] [place] [facility] Jul 18, 2021 01:30 PM AMBULATORY - PSYCHIATRY [facility] [place] [facility] Jul 25, 2021 02:30 PM AMBULATORY - PSYCHIATRY [facility] [place] [facility] Jul 26, 2021 09:00 AM AMBULATORY - MEDICINE [place] [facility] [place] [facility] Jul 30, 2021 11:30 AM AMBULATORY - PSYCHIATRY [facility] [place] [facility] Aug 07, 2021 11:00 AM AMBULATORY - MEDICINE [place] [facility] [place] [facility] Aug 13, 2021 07:30 AM AMBULATORY - NONE [place] [facility] [place] [facility] Aug 19, 2021 02:00 PM AMBULATORY - PSYCHIATRY [facility] [facility] Aug 28, 2021 10:20 AM AMBULATORY - MEDICINE [place] [facility] [place] [facility] Aug 28, 2021 03:00 PM AMBULATORY - MEDICINE [place] [facility] [place] [facility] Aug 28, 2021 03:01 PM AMBULATORY - MEDICINE [place] [facility] [place] [facility] Aug 28, 2021 03:15 PM AMBULATORY - MEDICINE [place] [facility] [place] [facility] Sep 03, 2021 04:00 PM AMBULATORY - PSYCHIATRY VA [facility] [facility] Sep 16, 2021 03:30 PM AMBULATORY - PSYCHIATRY ND CNTRL [place] [facility] Sep 17, 2021 04:00 PM AMBULATORY - PSYCHIATRY ND CNTRL [place] [facility] Sep 24, 2021 09:45 AM AMBULATORY - NONE [place] CNTRL [place] [facility] Sep 25, 2021 09:00 AM AMBULAT[facility] [place] Social History: Smoking Status (Most current) and [...] VA-TOBACCO NEVER USED [facility] Encounter Notes: All associated encounter notes This section contains the clinical notes associated to the Encounter. Date/Time Encounter Note(s) Provider Source Jul 02, 2021 05:11 SUICIDE PREVENTION NOTE: ANIVAL DEL ANGEL ND C NTRL WSTRN PM LOCAL TITLE: SUICIDE PREVENTION SAFETY PLAN REV IEW/DECLINE [facility] STANDARD TITLE: SUICIDE PREVENTION NOTE DATE OF NOTE: JUL 02, 2021@17:11 ENTRY DATE: JUL 02, 2021@17:11:42 AUTHOR: ANIVAL DEL ANGEL EXP MALCOMIGNER: URGENCY: STATUS: COMPLETED [place] and clinician reviewed prior Safety Plan together; no changes indicated at this time. Date of current Safety Plan: Jun /ivelisse/ VELASQUEZ RAJAN CLINICAL SUSTAIN ENGINEER Signed: 07/02/2021 17:12 Receipt Acknowledged By: * AWAITING SIGNATURE * AGUSTIN BURT Jul 02, 2021 05:02 SUICIDE PREVENTION RISK ASSESSMENT DANIELAJin CABALLERO NOTE: ANIVAL DEL ANGEL ND CNTRL WSTRN PM LOCAL TITLE: SUICIDE RISK EVALUATION - COMPREHE NSIVE [facility] STANDARD TITLE: SUICIDE PREVENTION RISK ASSESSME NT SCREENING NOT DATE OF NOTE: JUL 02, 2021@17:02 ENTRY DATE: JUL 02, 2021@17:02:58 AUTHOR: ANIVAL DEL ANGEL EXP COSIGNER: URGENCY: STATUS: COMPLETED Comprehensive Suicide Risk Evaluation This is an update to an existing suicide risk ev aluation. The validity of the information contained within this evaluation is not in question. Suicidal Ideation The most recent thoughts of engaging in suicide -related behavior were within the past 30 days. Yesterday and day before, had thoughts of not w anting to live and yesterday of taking his gun to his head and kill ing himself. The did not have suicidal intent at the time of the most recent ideation. The had a suicide plan at the time of t he most recent ideation. Describe: to shoot himself with his gun The most recent suicidal ideation was the most severe ideation within the last 30 days - yesterday and day before. The does have access to lethal means (f irearms). Number of firearms/storage: 1 stored locked at home Suicidal Behavior The has not made any suicide attempts s rosalinda the last [place] Comprehensive Suicide Risk Screening was comple christo. The did not report any prior back wedger y behaviors that have not been previously documented. Warning Signs Verbal or non-verbal expression of suicidal bernadette ation or behavior: Anger Anxiety Hopelessness Additional past warning signs include: Risk Factors Recent psychosocial stressors Please Describe: , financial strai n, marital conflict, 's mental health struggles (anxiety) Access to lethal means Please Describe: one gun at home History of mental health hospitalization Please Describe: see CPRS Psychological conditions or symptoms Please Describe: depression; PTSD Preexisting risk factors Please Describe: combat trauma ([facility] in [facility]) Protective Factors and Reasons for Living Access to and engagement with health care Access to and engagement with mental health car e Reports motivation for mental health treatment Has meaningful family relationships Has a significant other Has child-related responsibilities or responsib ilities for another person Reports hindu or spiritual beliefs/connecti ons Social context support system Clinical Impressions: The clinical impression of acute risk is Interm ediate ACUTE Risk. As evidenced by: able to maintain safety - has a lethal means safety plan of tonight ammo from gun and olivia ing ammo to his mother's house. Continues to make use of his safety plan. The clinical impression of chronic risk is Inte rmediate CHRONIC Risk. As evidenced by: psychosocial stressors, PTSD/d epression Suicide Risk Mitigation Plan: This treatment and care plan was developed in ollaboration with the . This CSRE was completed in an outpatient settin . Risk Mitigation Plan: General Strategies to Manage Risk Complete or update 's safety plan Provide lethal means safety counseling Address barriers to treatment engagement By: discussing about options given his work res ponsibilities Address psychosocial needs By: engaging around marital problems and upcomi ng new child Discussion with [place] regarding enhancement o f a sense of purpose and meaning Provide [place] with phone number for [place]'s Crisis Line: (press 1). Strategies for Managing Risk in OUTPATIENT sett ing Increase frequency of outpatient contacts Indicate frequency: again tomorrow and then florencio holly if possible/amenable to Schedule for follow-up appointments Comment/Date: tomorrow Re-evaluation: Due to the dynamic nature of some warning signs, risk and protective factors, suicide risk should be routinely re-evaluated. Serenity hesjin risk management strategies were chosen to address 's current present ation and feasible treatment options within the system of care. This plan vale uld be re-evaluated over time. /ivelisse/ ANIVAL DEL ANGEL [facility] CLINICAL SUSTAIN ENGINEER Signed: 07/02/2021 17:10 Receipt Acknowledged By: * AWAITING SIGNATURE * AGUSTIN BURT Jul 02, 2021 04:00 MENTAL HEALTH TELEPHONE ENCOUNTER NOTE: ANIVAL CALDERON CNTRL WSTRN PM LOCAL TITLE: TELEPHONE NOTE/MENTAL HEALTH [place] [facility] STANDARD TITLE: MENTAL HEALTH TELEPHONE ENCOUNTE R NOTE DATE OF NOTE: JUL 02, 2021@16:00 ENTRY DATE: JUL 02, 2021@16:46:22 AUTHOR: ANIVAL DEL ANGEL EXP COSIGNER: URGENCY: STATUS: COMPLETED VISIT DURATION: 40 minutes DIAGNOSES: PTSD; MDD [employer] STATEMENT OF GOALS/CONCERNS: shared that he is not doing well. He end orsed anxiety, panic attacks, and increased stress related to his 's pregn gabriela, financial strain (his has limited time off and he may need to sta y home but also needs to work), and his 's anxiety which he says is t riggering him. He shared he was feeling that my world is closing in, things are getting darker and that he is feeling scatter brained . He said he went away to [place] with his family this weekend and couldn't relax and got i nto an argument with his . He said yesterday he said out loud to hims elf that I don't want to live anymore, it's too much and he had the thou ght of taking his gun to his head. He said my daughter brought me back . He said the s/i has been the last two days. He described not knowing what to do and that he can't take time off from work as he won't get paid. 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 He said he's had the thought that I need to check out. SESSION FOCUS: suicide prevention; safety planni ng INTERVENTIONS: Psychotherapeutic Interventions: Assessment of sxs, s/i, well-being, and needs. Space for to share his stressors. Used r eflective listening, containment, expressing of care/concern, affirmi ng his willingness to be open and forthcoming with check writer salesperson given his expressed difficulties trusting, and focusing in on safety and immediate needs. Discu ssed option for voluntary inpatient admission. [place] declined saying he needed to keep working. Shared feedback regarding benefits of coming in for admission now for a break rather than the stress building towards a bigger crisis. He declined this. Assessed plan/intent. He denied a current plan/i ntent or additional s/i since yesterday. Discussed lethal means. He said his o ne gun is locked near his bed. Discussed alternative options for safety. Jennifer boyer did not have someone he felt comfortable giving it to (nor his Uncle who has been a support regarding safety planning at his old job). Elba ssed his staying somewhere else tonight for a break from the stress and mar ital conflict. He said he could stay at his mom's. Also discussed his sepa rating ammo from the gun. He agreed to do that and store the ammo at his moth er's and leave the gun at home. Telecom Analyst inquired about a plan B if he shoul d not go to his mother's. He said he would separate the ammo from the gun and put them in different parts of the house: I'll make it sterile and safe . H jin said he felt better because this plan felt like marching orders and he cou ld carry them out. Inquired about his medications. He said he has a hard time remembering to take them - about 50% of the time. Agreed to hossein abdi the goal to discuss strategies to help him remember. Discussed next steps. Agreed to talk again karyna fraire and check writer salesperson will phone him on his lunch break. ASSESSMENT: BRIEF ASSESSMENT OF MENTAL STATUS: 1. Appearance (grooming, attire, apparent age) within normal limits: N/A 2. Thought content was organized and goal direc christo: Yes 3. Speech was coherent and unimpaired: Yes 4. Affect was appropriate and unremarkable: Sounded anxious/stressed 5. Demeanor was calm, with no signs of agitatio n or restlessness: N/A 6. Sleep was largely unimpaired and restful: Not asked 7. No evidence of psychosis (hallucinations or delusions): Yes 8. Mood was normal: Anxious/depressed Other Observations: Telecom Analyst reached out to [facility] for consultation for safety planning during this call. RISK ASSESSMENT: see above and comprehensive PLAN FOR FOLLOW-UP: Phone call tomorrow. /ivelisse/ ANIVAL DEL ANGEL ENTRY LEVEL MECHANICAL ENGINEER CLINICAL SUSTAIN ENGINEER Signed: 07/02/2021 17:02 Receipt Acknowledged By: * AWAITING SIGNATURE * DENISE STUART * AWAITING SIGNATURE * AGUSTIN BURT
--- OUTSIDE RECORDS SUMMARY | 2022-04-18 10:12 | XMS_ITS | Encounter Summary ---
:1990 Author Organization Department [facility] rs Address [address] [place] [address] Support Name Relationship Address Phone TETE TRAN Unavailable [address] [facility] [phone] [address] [place] [address] THOMAS MONTOYA Unavailable [address] [facility] [place] [address] Insurance Providers: All historical and current Section Date Range: From patient's date of to the date document was created.This section includes the names of all active insurance providers for the patient. Insurance Type of Plan Start of End of Group Member Insurance Policy P atient's Provider Coverage Name Policy Policy Number ID Provider's Ojeda's Relationship Coverage Coverage Telephone Name to Policy Number Ojeda [facility] Aug 03, [id number] ROSA MARIA ChapoMA PATIENT BEE GIMENEZ 2019 [id number] STEPHANIE JOHNSON [facility] DEPT Selected Encounter This section includes the information on record at [facility] for the Encounter. Date/Time Encounter Type Encounter Reason Provider Source Description Jun 18, 2021 PSYTX W PT 30 TELEPHONE ICD-10-CM F43.10 MERLUCINDA Serenity 04:00 PM MINUTES Post-traumatic IE stress disorder, unspecified with Provider Comments: Posttraumatic stress disorder ([facility] [id number]) IHE Encounter Template Text not used by VA Assessments - Encounter Diagnoses This section includes the primary and secondary diagnoses documented for the Encounter. Date/Time Primary/Secondary Diagnosis Name Provider Source Diagnosis Jun 18, 2021 PRIMARY Post-traumatic MERDAI [place] [facility] 04:00 PM stress disorder, [facility] unspecified Jun 18, 2021 SECONDARY Major depressive MERDAI [facility] 04:00 PM disorder, [facility] recurrent, moderate Plan of Treatment: Future Appointments (+ 6 months) and Future Tests (+/- 45 days) The Plan of Treatment section includes future care activities for the patient [facility]. This section includes future appointments and future [...] AMBULATORY - [facility]IATRY [facility] [place] [facility] Jul 03, 2021 12:00 PM AMBULATORY - PSYCHIATRY [facility] [place] [facility] Jul 04, 2021 02:30 PM AMBULATORY - PS[facility]CHIATRY [facility] [place] [facility] Jul 11, 2021 01:00 PM AMBULATORY - MEDICINE [facility] [place] [facility] Jul 16, 2021 04:00 PM AMBULATORY - PS[facility]CHIATRY [facility] [place] [facility] Jul 18, 2021 01:30 PM AMBULATORY - PS[facility]CHIATRY [facility] [place] [facility] Jul 25, 2021 02:30 PM AMBULATORY - PS[facility]CHIATRY [facility] [place] [facility] Jul 26, 2021 09:00 AM AMBULATORY - MEDICINE [facility] [place] [facility] Jul 30, 2021 11:30 AM AMBULATORY - PSYCHIATRY [facility] [place] [facility] Aug 07, 2021 11:00 AM AMBULATORY - MEDICINE [facility] [place] [facility] Aug 13, 2021 07:30 AM AMBULATORY - NONE [facility] [place] [facility] Aug 19, 2021 02:00 PM AMBULATORY - PSYCHIATRY [facility] [place] [facility] Aug 28, 2021 10:20 AM AMBULATORY - MEDICINE [facility] [place] [facility] Aug 28, 2021 03:00 PM AMBULATORY - MEDICINE [facility] [place] [facility] Aug 28, 2021 03:01 PM AMBULATORY - MEDICINE [facility] [place] [facility] Aug 28, 2021 03:15 PM AMBULATORY - MEDICINE [facility] [place] [facility] Sep 03, 2021 04:00 PM [facility] [place] [facility] Sep 16, 2021 03:30 PM AMBULATORY - PS[facility]CHIATRY [facility] [place] [facility] Sep 17, 2021 04:00 PM AMBULATORY - PS[facility]CHIATRY [facility] [place] [facility] Sep 24, 2021 09:45 AM [facility] Social History: Smoking Status (Most [...] 2021 02:30 PM VA-TOBACCO NEVER USED [facility] Encounter Notes: All associated encounter notes This section contains the clinical notes associated to the Encounter. Date/Time Encounter Note(s) Provider Source Jun 18, 2021 04:00 MENTAL HEALTH TELEPHONE ENCOUNTER NOTE: ANIVAL CALDERON [facility] PM LOCAL TITLE: TELEPHONE NOTE/MENTAL HEALTH [facility] STANDARD TITLE: MENTAL HEALTH TELEPHONE ENCOUNTE R NOTE DATE OF NOTE: JUN 18, 2021@16:00 ENTRY DATE: JUN 18, 2021@16:31:41 AUTHOR: ANIVAL DEL ANGEL EXP COSIGNER: URGENCY: STATUS: COMPLETED VISIT DURATION: 30 minutes DIAGNOSES: PTSD; [facility] STATEMENT OF GOALS/CONCERNS: Randalia reported on sciatic pain and having to t gauri time from work. He shared that when his back pain was at its worst the oth er day, he thought about life not being worth living in such pain, but that he reminded himself it's going to pass...Do some core exercises to strengthen t hat area to prevent it from happening. He also shared he continues to not call his ex a nd that the urges to do so have gotten better. He said what helped was mirna nding himself that he can allow himself to feel it and that he didn't have to act on it. He shared concerns about the relationship with h is and his being distant still. He said when he tries to bring up issues in the relationship she gets upset and defensive. He said he brought up returning to couples therapy but that she doesn't want to. He is dealing by focus ing on his obligations and household responsibilities. SESSION FOCUS: supportive visit INTERVENTIONS: Psychotherapeutic Interventions: Assessment of sxs, s/i, well-being, and needs. Space to share recent stressors and succ esses. Affirmed use of positive coping skills. Provided validation and supportive strat egies. Explored some of the options available to him to work on his relation ship, noting the challenge of his not wanting to return to couples therap y. Discussed his individual therapy and agreed that stay ing connected with chief writer was important, even if by phone, until his work site changes and he can ma ke it into the office. ASSESSMENT: BRIEF ASSESSMENT OF MENTAL STATUS: 1. [...] or delusions): Yes 8. Mood was normal: some depression present Other Observations: RISK ASSESSMENT: Denies s/i PLAN FOR FOLLOW-UP: Phone call in 2 weeks. R[place]ia is still at the ed[place]ristine site where he is unable to get on video or make it into t he office for a face to face visit. He thinks it should end soon but he doesn't know wh en. He will call if he can change the next appointment to face to face. /ivelisse/ ANIVAL DEL AGNEL [facility] CLINICAL STORAGE CONSULTANT Signed: 06/19/2021 08:09
--- OUTSIDE RECORDS SUMMARY | 2022-04-18 10:12 | XMS_ITS | Encounter Summary ---
:1990 Author Organization Department [facility] rs Address [address] [place] [address] Support Name Relationship Address Phone TETE TRAN Unavailable [address] [facility] [place] [address] THOMAS MONTOYA Unavailable [address] [facility] [place] [address] Insurance Providers: All historical and current Section [...] Policy Number Ojeda [facility] Aug 03, [id number] ALIAROSINA Mane PATIENT BEE GIMENEZ 2019 [id number] [facility]IE [facility] DE[facility] Selected Encounter This section includes the information on record at [place] for the Encounter. Date/Time Encounter Type Encounter Description Reason Provider Source Jun 18, 2021 10:42 Outpatient Encounter PRIMARY CARE/MEDICINE AM IHE Encounter [...] 02, 2021 04:00 PM AMBULATORY - PSYCHIATRY [facility] Jul 03, 2021 12:00 PM AMBULATORY - [facility]ATRY [facility] [place] [facility] Jul 04, 2021 02:30 PM AMBULATORY - PS[facility]CHIATRY [facility] [place] [facility] Jul 11, 2021 01:00 PM AMBULATORY - MEDICINE [facility] [place] [facility] Jul 16, 2021 04:00 PM AMBULATORY - PSYCHIATRY [facility] [place] [facility] Jul 18, 2021 01:30 PM AMBULATORY - PS[facility]CHIATRY [facility] [place] [facility] Jul 25, 2021 02:30 PM AMBULATORY - PS[facility]CHIATRY [facility] [place] [facility] Jul 26, 2021 09:00 AM AMBULATORY - MEDICINE [facility] [place] [facility] Jul 30, 2021 11:30 AM AMBULATORY - PSYCHIATRY [facility] [place] [facility] Aug 07, 2021 11:00 AM AMBULATORY - MEDICINE [facility] [place] [facility] Aug 13, 2021 07:30 AM AMBULATORY - NONE [facility] [place] [facility] Aug 19, 2021 02:00 PM AMBULATORY - PS[facility]CHIATRY [facility] [place] [facility] Aug 28, 2021 10:20 AM AMBULATORY - MEDICINE [facility] [place] [facility] Aug 28, 2021 03:00 PM AMBULATORY - MEDICINE [facility] [place] [facility] Aug 28, 2021 03:01 PM AMBULATORY - MEDICINE [facility] [place] [facility] Aug 28, 2021 03:15 PM AMBULATORY - MEDICINE [facility] [place] [facility] Sep 03, 2021 04:00 PM AMBULATORY - PSYCHIATRY [facility] [place] [facility] Sep 16, 2021 03:30 PM AMBULATORY - PSYCHIATRY [facility] [place] [facility] Sep 17, 2021 04:00 PM AMBULATORY - PSYCHIATRY [facility] [place] [facility] Sep 24, 2021 09:45 AM AMBULATORY - NONE [facility] [place] [facility] Social History: Smoking Status (Most current) and Tobacco Use (All prior to encounter date) This section includes the most current, and the historical, smoking and tobacco-related health factors from the [facility] facility where the Encounter took place.Current Smoking Status This section includes the most current smoking, or tobacco-related health factor, from the [place] facility where the Encounter took place. Date/Time Current Smoking Status Comment Facility May 23, 2021 02:30 PM VA-TOBACCO NEVER USED [facility] Encounter Notes: All associated encounter notes This section contains the clinical notes associated to the Encounter. Date/Time Encounter Note(s) Provider Source Jun 18, 2021 10:42 AM NONVA NOTE: ERIS PRAJAPATI [place] [facility] LOCAL TITLE: NON-VA MEDICAL RECORD SUMMARY [facility] STAND[facility] TITLE: NONVA NOTE DATE OF NOTE: JUN 18, 2021@10:42 ENTRY DATE: JUN 18, 2021@10:42:56 AUTHOR: ERIS PRAJAPATI EXP COSIGNER: URGENCY: STATUS: COMPLETED [facility] ER VISIT DATE 06/16/21 DX: Acute right sided low back pain with sciatica D/C medication Tylenol Flexeril Motrin 31-year-old male here for low back pain. Patient states that the pain started this morning during a coughing fit. Patient does have history of sciatica in this area. Patient states that he coughed vigoro usly and felt a twinge in his back. Patient states the pain radiates to his ri ght testicle. Patient states that the pain is not radiating down his right le g. Patient denies bowel or bladder incontinence. Patien t denies saddle anesthesia. No fever chills. Denies IV drug use. Back pain radiating to testicles. Ultrasound ord ered to evaluate for torsion, which showed normal testicles. No red fl ags for serious cause of back pain. No evidence of cauda equina or cord compression. Kojo davies felt much better after treatment with medications in the ED. Patient di scharged with work note. /ivelisse/ ERIS PRAJAPATI RN MSN REGISTERED NURSE Signed: 06/18/2021 10:46
--- OUTSIDE RECORDS SUMMARY | 2022-04-18 10:16 | XMS_ITS | Encounter Summary ---
:1990 Author Organization Department [facility] rs Address [address] [place] [address] Support Name Relationship Address Phone TETE TRAN Unavailable [address] [facility] МАРИ[facility] [place] [address] THOMAS MONTOYA Unavailable [address] [place] [address] Insurance Providers: All historical and current Section Date Range: From patient's date of to the date document was created.This section includes the names of all active insurance providers for the patient. Insurance Type of Plan Start of End of Group Member Insurance Policy P atient's Provider Coverage Name Policy Policy Number ID Provider's Ojeda's Relationship Coverage Coverage Telephone Name to Policy Number Ojeda [facility] Aug 03, [id number] [phone] ROSA MARIA CowanVA PATIENT BEE [facility] [id number] STEPHANIE [facility] E DEPT Selected Encounter This section includes the information on record at [place] for the Encounter. Date/Time Encounter Type Encounter Reason Provider Source Description Jan 30, 2022 ELECTROCARDIOGRAM EKG ICD-10-CM Z13.6 UZMA EPSTEIN 12:32 PM REPORT Encounter for A screening for cardiovascular disorders with Provider Comments: Encounter for Screening for Cardiovascular Disorders IHE Encounter Template Text not used by [place] Assessments - Encounter Diagnoses This section includes the primary and secondary diagnoses documented for the Encounter. Date/Time Primary/Secondary Diagnosis Name Provider Source Diagnosis Feb 21, 2022 PRIMARY Encounter for [place] FRAUSTO [facility] S 11:31 AM screening for [place] cardiovascular disorders Plan of Treatment: Future Appointments (+ 6 [...] 20 appointments. The data comes from all [place] treatment facilities. Appointment Date/Time Appointment Type Appointment Facili ty Name Feb 04, 2022 02:15 PM AMBULATORY - NONE [facility] [place] [facility] Feb 06, 2022 04:00 PM AMBULATORY - PSYCHIATRY [facility] [place] [facility] Feb 07, 2022 01:00 PM AMBULATORY - MEDICINE [facility] [place] [facility] Feb 10, 2022 01:15 PM AMBULATORY - MEDICINE [facility] [place] [facility] Feb 10, 2022 01:45 PM AMBULATORY - MEDICINE [facility] [place] [facility] Feb 12, 2022 09:00 AM AMBULATORY - PSYCHIATRY [facility] [place] [facility] Feb 14, 2022 12:00 PM AMBULATORY - PSYCHIATRY [facility] [place] [facility] Feb 25, 2022 01:00 PM AMBULATORY - PSYCHIATRY [facility] [place] [facility] Feb 27, 2022 02:00 PM AMBULATORY - PSYCHIATRY [facility] [place] [facility] Mar 17, 2022 03:00 PM AMBULATORY - PSYCHIATRY [facility] [place] [facility] Mar 28, 2022 09:00 AM AMBULATORY - PSYCHIATRY [facility] [place] [facility] Apr 17, 2022 01:00 PM AMBULATORY - NONE [facility] [place] [facility] Apr 25, 2022 09:00 AM AMBULATORY - PSYCHIATRY [facility] [place] [facility] May 09, 2022 09:00 AM AMBULATORY - PSYCHIATRY [facility] [place] [facility] May 23, 2022 09:00 AM AMBULATORY - PSYCHIATRY [facility] [place] [facility] Jul 17, 2022 08:30 AM AMBULATORY - NONE [facility] [place] [facility] Lab Results: +/- 30 days [...] Interpretation Reference Range Comment [facility]TIBODY, Specimen Typ e: SERUM 01:43 PM [place] [facility] AGGLUTINATION Comment: REFERE NCE RANGE: [...] performance characteri stics have been determined by [employer]. It has not been cleared or approved by FDA. This assay has been validated pursuant to the CLIA regulations and is used for clinical purposes. Test perfor med by [facility] [address] [place] [address] Polystyrene Bead Molder: Alejandrina Quick MD,PHD,[place] Test performed at [employer], [place], [place]. Ordering Provid er: DIMITRI SCRUGGS Report Released Date/Time: Feb 07, 2022 01:27 PM Reporting Lab: [facility] [place] [facility] [address] [facility] [facility] [address] Performing Lab: [facility] [place] [facility] [address], [address] [facility] [address] BRUCELLA ANTIBODY, AGGLUTINATION <1:80 Feb 07, 2022 [facility] BABESIA MICROTI Specimen Type: SERUM 01:43 PM [place] [facility] ANTIBODIES (IgG, Comment: REFER ENCE RANGE: [...] analytical performance characteristics have been determined by [place]. It has not been cleared or approved by the U.S. Food and Drug A dministration. T his assay has been validated pursuant to the CLIA regulations and is used for clinical purposes. Test Performed by [facility], [employer] [facility], [address] [place], [place] Ronald Abdul M.D., Ph.D., Director of Laboratories , CLIA [id number] TEST PERFORMED AT: , Ordering Provid er: DIMITRI SCRUGGS Report Released Date/Time: Feb 07, 2022 01:29 PM Reporting Lab: [facility] [address] [address] Performing Lab: [facility] [address] [facility], [address] [facility] [address] Babesia microti IgG <1:64 SEE BELOW Babesia microti IgM <1:20 SEE BELOW BABESIA MICROTI AB INTER SEE NOTE Feb 07, 2022 [facility] ANAPLASMA AND Specimen Type: SERUM 01:43 PM [facility] EHRLICHIA AB PANEL Comment: REF ERENCE RANGE: [...] performance c haracteristics have been determined by [place]. It has not been cleared or [...] analytical performance characteristics have been determined by [employer] [place], [place]. It has not been cleared or approved by the U.S. Food and Drug Administration. This assay has been validated pursuant to the CLIA regulations and is used for clinical purposes. Test Performed by [facility], [facility], [address] [place] [address] Ronald Abdul M.D., Ph.D., Director of Laboratories , CLIA [id number] TEST PERFORMED AT: , Ordering Provid er: DIMITRI SCRUGGS Report Released Date/Time: Feb 07, 2022 01:33 PM Reporting Lab: [facility] [address] [facility] [address] Performing Lab: [facility] [address], [address] [place] [address] E. chaffeensis Ab IgG <1:64 SEE BELO W E. chaffeensis Ab IgM <1:20 SEE BELO W A.phagocytophilum Ab IgG <1:64 SEE B ELOW A.phagocytophilum Ab IgM <1:20 SEE B ELOW EHRLICHIA CHAFFEENSIS AB INTER SEE NOTE A. phagocytophilum inter SEE NOTE Feb 07, 2022 [facility] BABESIA MICROTI, Specimen Type: BLOOD 01:43 PM [facility] DNA PCR(WHV) Comment: The an alytical performance characteristics of this test have been determined by [facility]. It has not been cleared by the FDA. Ordering Provid er: DIMITRI SCRUGGS Report Released Date/Time: Feb 07, 2022 01:29 PM Reporting Lab: [facility] [address] [facility] [address] Performing Lab: [facility] [address] [facility] [address] BABESIA MICROTI, DNA PCR(WHV) Not Detected Not Detected Feb 07, 2022 [facility] RICKETTSIA ANTIBODY Specimen Ty pe: SERUM 01:43 PM [facility] PANEL (Q) Comment: Test P erformed by [employer], [employer] [facility], [address] [place], [place] Ronald Abdul M.D., Ph.D., Director of Laboratories , [place] [id number] TEST PERFORMED AT: , Ordering Provid er: DIMITRI SCRUGGS Report Released Date/Time: Feb 07, 2022 01:33 PM Reporting Lab: [facility] [address] [facility] [address] Performing Lab: [facility] [address] [place], [address] [facility] [address] RMSF IgG Not Detected Not Detected RMSF IgM Not Detected Not Detected R. typhi IgM Not Detected Not Detected Jan [facility] LYME Specimen Type: SERUM 22, [facility] SEROLOGY Comment: The re sults are supportive evidence for the presence of antibodies and exposure to Borrelia burgdorferi. The LYME SEROLOGY PANEL was performed using the FDA-approved Demetrius YINA Borrelia burdor 2021 [facility] PANEL feri modified tw o-tier test system. This modified methodology uses a second EIA in place of a western immunoblot assay, which the FDA has determined is substantially equivalent to or better than stand 01:43 [facility] damaris two-tier aren ting using western blot. Supplemental testing with a second EIA meets CDC guidelines for Lyme disease testing. Performance characteristics of the panel [facility]. Results are considered positive [...] and local health departments, if applicable. The [place] Form URL is: http://www.[place].gov/dp/dru/dph/infectious_diseases/pdf_forms_/io26_hsna.pdf Ordering Provid er: DIMITRI SCRUGGS Report Released Date/Time: Feb 07, 2022 07:49 AM Reporting Lab: [facility] HealthCHUS[facility] [address] [facility] [address] Performing Lab: [facility] HealthCHUS[facility] [address] [facility] [address] TIER 1 LYME SCREENING EIA Presumptive Positive Negative LYME AB FINAL INTERPRETATION POSITIVE HH N egative TIER 2 LYME EIA,IgG Negative Negative TIER 2 LYME EIA,IgM POSITIVE HH Negative Feb 07, 2022 01:43 PM [place] [facility] [place] FOLATE Specimen Type: SERUM HCS No comment enter ed. Ordering Provid er: DIMITRI SCRUGGS Report Released Date/Time: Feb 07, 2022 07:49 AM Reporting Lab: [place] [facility] [facility] [address] [facility] [address] Performing Lab: [facility] [place] [facility] [address] [facility] [address] FOLATE 12.99 >5.2 Feb 07, 2022 [place] [facility] C REACTIVE PROTEIN Specimen Typ e: SERUM 01:43 PM [facility] (CRP) Comment: Refere nce range changed on 01/07/11 [facility] reference ranges for ages >17 [...] Feb 07, 2022 01:18 PM Reporting Lab: [facility] [address] [facility] [address] Performing Lab: [facility] [address] [facility] [address] C REACTIVE PROTEIN (CRPH) 2.32 See eval. Feb 07, 2022 [facility] MALARIA/BABESIA EXAM Specimen T ype: BLOOD 01:43 PM [facility] Comment: Due to the cyclical shed rates of these parasites, one negative specimen does not rule out the possibility of a parasitic infection. Obtain specimens at 6-hour intervals for 36 hours for a com prehensive exami nation. Test Performed by [employer], [employer] [facility], [address] [place] [address] Ronald Abdul M.D., Ph.D., Director of Laboratories , [facility] [id number] TEST PERFORMED AT: , Ordering Provid er: DIMITRI SCRUGGS Report Released Date/Time: Feb 07, 2022 01:29 PM Reporting Lab: [facility] [address] [facility] [address] Performing Lab: [facility] [address] [facility] [address] [place], [address] [facility] [address] MALARIA/BABESIA EXAM Negative Negative Feb 07, 2022 [facility] CORA SCREEN/TITER Specimen Type: SERUM 01:43 PM [facility] No comment enter ed. Ordering Provid er: DIMITRI SCRUGGS Report Released Date/Time: Feb 07, 2022 01:29 PM Reporting Lab: [facility] [place] [facility] [address] [facility] [address] Performing Lab: [facility] [place] [facility] [address] [facility] [address] CORA SCREEN NEG NEG <1:40 Feb 07, 2022 [facility] SED RATE, AUTOMATED Specimen Ty pe: BLOOD 01:43 PM [place] [facility] No comment enter ed. Ordering Provid er: DIMITRI SCRUGGS Report Released Date/Time: Feb 07, 2022 01:18 PM Reporting Lab: [place] [facility] [place] [facility] [address] [facility] [address] Performing Lab: [facility] [place] [facility] [address] [facility] [address] SED RATE, AUTOMATED 9 0-15 Feb 07, 2022 01:43 [facility] VITAMIN B12 Specimen Typ e: SERUM PM [facility] No comment enter ed. Ordering Provid er: DIMITRI SCRUGGS Report Released Date/Time: Feb 07, 2022 07:49 AM Reporting Lab: [facility] [place] [facility] [address] [facility] [address] Performing Lab: [facility] [place] [facility] [address] [facility] [facility] [address] VITAMIN B12 593 200-900 Feb 07, 2022 [facility] URINALYSIS CLEAN Specimen Type: URINE 01:43 PM [facility] CATCH No comment enter ed. Ordering Provid er: DIMITRI SCRUGGS Report Released Date/Time: Feb 07, 2022 07:50 AM Reporting Lab: [facility] [place] [facility] [address] [facility] [address] Performing Lab: [facility] [place] [facility] [address] [facility] [address] UA COLOR Yellow Yellow UA APPEARANCE Clear Clear UA GLUCOSE Negative Negative UA KETONES Negative Neg UA BLOOD Negative Neg UA PROTEIN Negative Neg UA NITRITE Negative Neg UA BILIRUBIN Negative Neg UA SPECIFIC GRAVITY 1.017 1.016-1.02 2 UA pH 6.0 5.0-9.0 UA UROBILINOGEN <2.0 <2.0 UA LEUKOCYTE ESTERASE Negative Neg Feb 07, 2022 [facility] CBC AND DIFF Specimen Type: BLOOD 01:43 PM [facility] (AUTO) No comment enter ed. Ordering Provid er: DIMITRI SCRUGGS Report Released Date/Time: Feb 07, 2022 07:49 AM Reporting Lab: [facility] [place] [facility] [address] [facility] [address] Performing Lab: [place] [facility] [address] [facility] [address] WBC 6.22 4.50-11.00 RBC 5.24 4.23-5.66 HGB 15.7 12.8-17 HCT 44.8 39.2-50.4 MCV 85.5 82-99 MCHC 35.0 30.8-35.1 PLT 390 H 140-360 RDW-CV 11.4 L 12.0-16.0 Mercer, Abs 0.46 0.30-1.10 MCH 30.0 26.2-32.6 Neut % 60.2 Lymph % 30.1 Mercer % 7.4 Eos % 1.1 Baso % 0.6 Neut, Abs 3.74 2.20-7.60 Lymph, Abs 1.87 1.00-3.20 Eos, Abs 0.07 0.03-0.44 Baso, Abs 0.04 0.01-0.13 Immature Gran % 0.6 Immature Gran, Abs 0.04 0.00-0.06 Jan 30, 2022 11:25 [facility] THYROID TOTAL T4 Specimen Ty pe: SERUM AM [facility] No comment enter ed. Ordering Provid er: YINA HAGAN Report Released Date/Time: Jan 30, 2022 10:32 AM Reporting Lab: [facility] [place] [facility] [address] [facility] [address] Performing Lab: [facility] [place] [facility] [address] [facility] [address] THYROID TOTAL T4 8.86 4.5-12.0 Jan 30, 2022 [facility] TESTOSTERONE, TOTAL Specimen Ty pe: SERUM 11:25 AM [facility] No comment enter ed. Ordering Provid er: YINA HAGAN Report Released Date/Time: Jan 30, 2022 10:32 AM Reporting Lab: [facility] [place] [facility] [address] [facility] [facility] [address] Performing Lab: [place] [facility] [facility] [address] [facility] [address] TESTOSTERONE, TOTAL 525.91 220.00-892 .00 Jan 30, 2022 11:25 [facility] LIVER FUNCTION Specimen Typ e: SERUM AM [place] [facility] No comment enter ed. Ordering Provid er: YINA HAGAN Report Released Date/Time: Jan 30, 2022 10:32 AM Reporting Lab: [facility] [place] [facility] [address] [facility] [address] Performing Lab: [facility] [address] [facility] [address] PROTEIN,TOTAL 7.2 6.0-8.3 ALBUMIN 4.0 3.5-5.0 ALKALINE PHOSPHATASE 57 40-150 AST 37 H 5-34 ALT 36 <6-55 BILIRUBIN, TOTAL 0.9 0.2-1.2 Jan 30, 2022 11:25 [facility] CBC AND DIFF Specimen Typ e: BLOOD AM [place] [facility] (AUTO) No comment enter ed. Ordering Provid er: YINA HAGAN Report Released Date/Time: Jan 30, 2022 10:32 AM Reporting Lab: [facility] [place] [facility] [address] [facility] [address] Performing Lab: [place] [facility] [facility] [address] [facility] [address] WBC 2.65 L 4.50-11.00 RBC 5.29 4.23-5.66 HGB 15.7 12.8-17 HCT 46.2 39.2-50.4 MCV 87.3 82-99 MCHC 34.0 30.8-35.1 PLT 152 140-360 RDW-CV 11.5 L 12.0-16.0 MCH 29.7 26.2-32.6 Jan 30, 2022 [facility] HEMOGLOBIN A1C Specimen Type: BLOOD [...] Jan 30, 2022 10:32 AM Reporting Lab: [facility] [place] [facility] [address] [facility] [address] Performing Lab: [place] [facility] [place] [facility] [address] [facility] [address] HEMOGLOBIN A1C 4.6 4.0-5.6 Jan 30, 2022 11:25 AM [facility] [place] TSH Specimen Type: SERUM HCS No comment enter ed. Ordering Provid er: YINA HAGAN Report Released Date/Time: Jan 30, 2022 10:32 AM Reporting Lab: [facility] [place] [facility] [address] [facility] [address] Performing Lab: [place] [facility] [place] [facility] [address] [facility] [address] TSH 0.82 0.35-5.00 Jan 30, 2022 11:25 [facility] LIPID PANEL FASTING Specimen Type: SERUM AM [place] [facility] No comment enter ed. Ordering Provid er: YINA HAGAN Report Released Date/Time: Jan 30, 2022 10:32 AM Reporting Lab: [facility] [place] [facility] [address] [facility] [address] Performing Lab: [place] [facility] [place] [facility] [address] [facility] [address] CHOLESTEROL 167 <7-199 TRIGLYCERIDE 112 0-150 LDL calculated 108 0-129 CHOL/HDL 4.5 HDL CHOLESTEROL 37 L 40-60 Jan 30, 2022 [facility] BASIC METABOLIC PANEL Specimen Type: SERUM 11:25 AM [place] [facility] (fasting) No comment enter ed. Ordering Provid er: YINA HAGAN Report Released Date/Time: Jan 30, 2022 10:32 AM Reporting Lab: [facility] [place] [facility] [address] [facility] [address] Performing Lab: [facility] [place] [facility] [address] [facility] [address] UREA NITROGEN 13 7-25 GLUCOSE 102 H [...] AM Reporting Lab: [facility] [place] [facility] [address] [facility] [address] Performing Lab: [facility] [place] [facility] [address] [facility] [address] VITAMIN B12 354 200-900 Jan 30, 2022 11:25 [facility] VITAMIN D (25-[place]) Specimen T ype: SERUM AM [place] [facility] No comment enter ed. Ordering Provid er: YINA HAGAN Report Released Date/Time: Jan 30, 2022 10:32 AM Reporting Lab: [facility] [place] [facility] [address] [facility] [address] Performing Lab: [facility] [place] [facility] [address] [facility] [address] VITAMIN D (25-[place]) 38 20-50 Jan 30, 2022 [facility] MICROSCOPIC AUTOMATED, Specimen Type: URINE 11:25 AM [facility] No comment enter ed. Ordering Provid er: YINA HAGAN Report Released Date/Time: Jan 30, 2022 10:32 AM Reporting Lab: [facility] [place] [facility] [address] [facility] [address] Performing Lab: [facility] [place] [facility] [address] [facility] [address] UA WBC 0-5 0-5 UA MUCUS FEW Trace UA RBC 3-5 0-3 Jan 30, 2022 [facility] DIFFERENTIAL, MANUAL Specimen T ype: BLOOD 11:25 AM [facility] Comment: Giant platelets present. SENT FOR PATHOLOGY REVIEW Ordering Provid er: YINA HAGAN Report Released Date/Time: Jan 30, 2022 10:32 AM Reporting Lab: [facility] [address] [facility] [address] Performing Lab: [facility] [address] [facility] [address] SEGS 47 L 48-78 BANDS 5 0-10 LYMPHS 16 10-55 MONOS 23 H 2-12 VARIANT LYMPHOCYTES 5 0-6 OTHER/CELL 4 Jan 30, 2022 11:25 [facility] URINALYSIS S pecimen Type: URINE AM [facility] No comment enter ed. Ordering Provid er: YINA HAGAN Report Released Date/Time: Jan 30, 2022 10:32 AM Reporting Lab: [facility] [address] [facility] [address] Performing Lab: [facility] [address] [facility] [address] UA COLOR Yellow Yellow UA APPEARANCE Clear Clear UA GLUCOSE Negative Negative UA KETONES Negative Neg UA BLOOD Moderate Neg UA PROTEIN 30 Neg UA NITRITE Negative Neg UA BILIRUBIN Negative Neg UA SPECIFIC GRAVITY 1.027 H 1.016-1.02 2 UA pH 5.0 5.0-9.0 UA UROBILINOGEN <2.0 <2.0 UA LEUKOCYTE ESTERASE Negative Neg Jan [facility] LYME Specimen Type: SERUM 14, W[facility] [...] second EIA meets CDC guidelines for 11:25 [facility] Lyme disease aren ting. Performance characteristics of the panel were validated at the [place] [facility]. Results are considered [...] and local health departments, if applicable. The [place] Form U RL is: http://www.[place].gov/dph/dru/dph/infectious_diseases/pdf_forms_/uf12_sncr.pdf Ordering Provid er: YINA HAGAN Report Released Date/Time: Feb 03, 2022 12:51 PM Reporting Lab: [facility] [place] [facility] [address] [facility] [address] Performing Lab: [facility]ITALR[facility] CAMPUSTRN [place] [facility] [address] [facility] [address] TIER 1 LYME SCREENING EIA Negative Nega tive LYME AB FINAL INTERPRETATION Negative N egative Jan 30, 2022 11:25 [facility] SMEAR CONSULT ([facility]) Specimen Type: BLOOD AM [place] [facility] Comment: SEE HE [id number] Ordering Provid er: YINA HAGAN Report Released Date/Time: Jan 30, 2022 12:51 PM Reporting Lab: [place] [facility] [facility] [address] [facility] [address] Performing Lab: [facility] [address] [facility] [address] SMEAR CONSULT ([facility]) comment Encounter Notes: All associated encounter notes This section contains the clinical notes associated to the Encounter. Date/Time Encounter Note(s) Provider Source Feb 21, 2022 11:30 AM CARDIOLOGY PROCEDURE NOTE: CHADWICK FRAUSTO [facility] TITLE: EKG OUTPATIENT RESULT STANDARD TITLE: CARDIOLOGY PROCEDURE NOTE DATE OF NOTE: FEB 21, 2022@11:30 ENTRY DATE: FEB 21, 2022@11:31:01 AUTHOR: CHADWICK FRAUSTO EXP COSIGNER: URGENCY: STATUS: COMPLETED An EKG was done on: Jan Please see [facility] for the EKG result. /ivelisse/ CHADWICK FRAUSTO TRUCKSMITH Signed: 02/21/2022 11:32
--- OUTSIDE RECORDS SUMMARY | 2022-04-18 10:17 | XMS_ITS | Encounter Summary ---
:1990 Author Organization Department [facility] rs Address [address] [place] [address] Support Name Relationship Address Phone TETE TRAN Unavailable [address] [place] [address] THOMAS MONTOYA Unavailable [address] [facility] [place] [address] Insurance Providers: All historical and current Section [...] [facility] Aug 03, [id number] [phone] ALIAROSINA Mane 2019 [id number] [facility] ORGAN[facility] E DEPT Selected Encounter This section includes the information on record at [place] for the Encounter. Date/Time Encounter Type Encounter Description Reason Provider Source Feb 03, 2022 09:53 Outpatient Encounter DENTAL AM IHE Encounter Template Text not used by [place] Plan of Treatment: Future Appointments (+ 6 months) and Future Tests (+/- 45 days) The Plan of Treatment section includes future care activities for the patient from all [place] treatmentfacilities. This section includes future appointments and future orders which are active, pending orscheduled.Future Appointments This section includes appointments that were scheduled to occur 6 months from the date of the Encounter, up to a maximum of 20 appointments. The data comes from all [place] treatment facilities. Appointment Date/Time Appointment Type Appointment Facili ty Name Feb 04, 2022 02:15 PM AMBULATORY - NONE [facility] Feb 06, 2022 04:00 PM AMBULATORY [...] AMBULATORY - PS[facility]CHIATRY [facility] [place] [facility] Mar 28, 2022 09:00 AM AMBULATORY - PS[facility]CHIATRY [facility] [place] [facility] Apr 17, 2022 01:00 PM AMBULATORY - NONE [facility] [place] [facility] Apr 25, 2022 09:00 AM AMBULATORY - PS[facility]IATRY [facility] [place] [facility] May 09, 2022 09:00 AM AMBULATORY - PSYCHIATRY [facility] [place] [facility] May 23, 2022 09:00 AM AMBULATORY - PSYCHIATRY [facility] [place] [facility] Jul 17, 2022 08:30 AM AMBULATORY - NONE [facility] [place] [facility] Lab Results: +/- 30 days [...] Specimen Typ e: SERUM 01:43 PM [place] [facility] AGGLUTINATION Comment: REFERE NCE RANGE: <1:80 [...] performance characteri stics have been determined by [facility]. It has not been cleared or approved by FDA. This assay has been validated pursuant to the CLIA regulations and is used for clinical purposes. Test perfor med by [employer] - [place] [facility] [address] [place] [address] Barrel And Receiver Aligner: Alejandrina Quick MD,PHD,[place] Test performed at [place], [place]. Ordering Provid er: DIMITRI SCRUGGS Report Released Date/Time: Feb 07, 2022 01:27 PM Reporting Lab: [facility] [address] [address] Performing Lab: [facility] [address] [facility], [address] [facility] [address] BRUCELLA ANTIBODY, AGGLUTINATION <1:80 Feb 07, 2022 [facility] BABESIA MICROTI Specimen Type: SERUM 01:43 PM [facility] ANTIBODIES (IgG, Comment: REFER ENCE RANGE: [...] analytical performance characteristics have been determined by [facility], [place], [place]. It has not been cleared or approved by the U.S. Food and Drug A dministration. T his assay has been validated pursuant to the CLIA regulations and is used for clinical purposes. Test Performed by [facility], [facility], [address] [facility] [place], [place] Ronald Abdul M.D., Ph.D., Director of Laboratories , CLIA [id number] TEST PERFORMED AT: , Ordering Provid er: DIMITRI SCRUGGS Report Released Date/Time: Feb 07, 2022 01:29 PM Reporting Lab: [facility] [address] [address] Performing Lab: [facility] [address] [facility] [address], [address] [facility] [address] Babesia microti IgG <1:64 SEE BELOW Babesia microti IgM <1:20 SEE BELOW BABESIA MICROTI AB INTER SEE NOTE Feb 07, 2022 [facility] ANAPLASMA AND Specimen Type: SERUM 01:43 PM [facility] EHRLICHIA AB PANEL Comment: REF ERENCE [...] performance c haracteristics have been determined by [facility], [place], [place]. It has not been cleared or [...] analytical performance characteristics have been determined by [facility] [place], [place]. It has not been cleared or approved by the U.S. Food and Drug Administration. This assay has been validated pursuant to the CLIA regulations and is used for clinical purposes. Test Performed by [facility], [employer] [facility], [address] [place] [address] Ronald Abdul M.D., Ph.D., Director of Laboratories , CLIA [id number] TEST PERFORMED AT: , Ordering Provid er: DIMITRI SCRUGGS Report Released Date/Time: Feb 07, 2022 01:33 PM Reporting Lab: [facility] [address] [address] Performing Lab: [facility] [address] [facility], [address] [place] [address] E. chaffeensis Ab IgG <1:64 SEE BELO W E. chaffeensis Ab IgM <1:20 SEE BELO W A.phagocytophilum Ab IgG <1:64 SEE B ELOW A.phagocytophilum Ab IgM <1:20 SEE B ELOW EHRLICHIA CHAFFEENSIS AB INTER SEE NOTE A. phagocytophilum inter SEE NOTE Feb 07, 2022 [facility] BABESIA MICROTI, Specimen Type: BLOOD 01:43 PM [facility] DNA PCR(V) Comment: The an alytical performance characteristics of this test have been determined by [facility]. It has not been cleared by the FDA. Ordering Provid er: DIMITRI SCRUGGS Report Released Date/Time: Feb 07, 2022 01:29 PM Reporting Lab: [facility] [address] [address] Performing Lab: [facility] [address] [place] [address] BABESIA MICROTI, DNA PCR(V) Not Detected Not Detected Feb 07, 2022 [facility] ANTIBODY Specimen Ty pe: SERUM 01:43 PM [facility] PANEL (Q) Comment: Test P erformed by [employer], [address] [place], [place] Ronald Abdul M.D., Ph.D., Director of Laboratories , CLIA [id number] TEST PERFORMED AT: , Ordering Provid er: DIMITRI SCRUGGS Report Released Date/Time: Feb 07, 2022 01:33 PM Reporting Lab: [facility] [address] [address] Performing Lab: [facility] [address] [facility] [address], [address] [facility] [address] RMSF IgG Not Detected Not Detected RMSF IgM Not Detected Not Detected R. typhi IgM Not Detected Not Detected Jan [facility] LYME Specimen Type: SERUM 22, W[facility] SEROLOGY Comment: The re sults are supportive evidence for the presence of antibodies and exposure to Borrelia burgdorferi. The LYME SEROLOGY PANEL was performed using the FDA-approved Demetrius YINA Borrelia burdor 2021 [facility] PANEL feri modified tw o-tier test system. This modified methodology uses a second EIA in place of a western immunoblot assay, which the FDA has determined is substantially equivalent to or better than stand 01:43 [facility] damaris two-tier aren ting using western blot. Supplemental testing with a second EIA meets CDC guidelines for Lyme disease testing. Performance characteristics of the panel were validated at the [facility] lar Diagnostics Laboratory. Results are considered [...] and local health departments, if applicable. The [place] State Form URL is: http://www.[place].gov/dph/dru/dph/infectious_diseases/pdf_forms_/[email or web address].pdf Ordering Provid er: DIMITRI SCRUGGS Report Released Date/Time: Feb 07, 2022 07:49 AM Reporting Lab: [facility] [place] [facility] [address] [address] Performing Lab: [facility] [place] [facility] [address] [facility] [address] TIER 1 LYME SCREENING EIA Presumptive Positive Negative LYME AB FINAL INTERPRETATION POSITIVE HH N egative TIER 2 LYME EIA,IgG Negative Negative TIER 2 LYME EIA,IgM POSITIVE HH Negative Feb 07, 2022 01:43 PM [facility] [place] FOLATE Specimen Type: SERUM HCS No comment enter ed. Ordering Provid er: DIMITRI SCRUGGS Report Released Date/Time: Feb 07, 2022 07:49 AM Reporting Lab: [facility] [place] [facility] [address] [address] Performing Lab: [facility] [place] [facility] [address] [facility] [address] FOLATE 12.99 >5.2 Feb 07, 2022 [facility] C REACTIVE PROTEIN Specimen Typ e: SERUM 01:43 PM [facility] ([facility]) Comment: Refere nce range changed on 01/07/11 [facility] reference ranges for ages >17 [...] Feb 07, 2022 01:18 PM Reporting Lab: [facility] [address] [address] Performing Lab: [facility] [address] [facility] [address] C REACTIVE PROTEIN (CRPH) 2.32 See eval. Feb 07, 2022 [facility] MALARIA/BABESIA EXAM Specimen T ype: BLOOD 01:43 PM [facility] Comment: Due to the cyclical shed rates of these parasites, one negative specimen does not rule out the possibility of a parasitic infection. Obtain specimens at 6-hour intervals for 36 hours for a com prehensive exami nation. Test Performed by [facility], [facility], [address] [place] [address] Ronald Abdul M.D., Ph.D., Director of Laboratories , [place] [id number] TEST PERFORMED AT: , Ordering Provid er: DIMITRI SCRUGGS Report Released Date/Time: Feb 07, 2022 01:29 PM Reporting Lab: [facility] [address] [address] Performing Lab: [facility] [address], [address] [place] [address] MALARIA/BABESIA EXAM Negative Negative Feb 07, 2022 [facility] CORA SCREEN/TITER Specimen Type: SERUM 01:43 PM [facility] No comment enter ed. Ordering Provid er: DIMITRI SCRUGGS Report Released Date/Time: Feb 07, 2022 01:29 PM Reporting Lab: [facility] SERVICESRJACK [facility]OSPITALTRN [facility] [address] [address] Performing Lab: [facility] [address] [facility] [address] CORA SCREEN NEG NEG <1:40 Feb 07, 2022 [facility] SED RATE, AUTOMATED Specimen Ty pe: BLOOD 01:43 PM [place] [facility] No comment enter ed. Ordering Provid er: DIMITRI SCRUGGS Report Released Date/Time: Feb 07, 2022 01:18 PM Reporting Lab: [facility] [address] [address] Performing Lab: [facility] SERVICESRJACK [facility]GHST[facility] HOSPITALTRN [facility]ETS [facility] [address] [address] SED RATE, AUTOMATED 9 0-15 Feb 07, 2022 01:43 [facility] VITAMIN B12 Specimen Typ e: SERUM PM [facility] No comment enter ed. Ordering Provid er: DIMITRI SCRUGGS Report Released Date/Time: Feb 07, 2022 07:49 AM Reporting Lab: [facility] [address] [address] Performing Lab: [facility] [address] [address] VITAMIN B12 593 200-900 Feb 07, 2022 [facility] URINALYSIS CLEAN Specimen Type: URINE 01:43 PM [facility] CATCH No comment enter ed. Ordering Provid er: DIMITRI SCRUGGS Report Released Date/Time: Feb 07, 2022 07:50 AM Reporting Lab: [facility] [address] [address] Performing Lab: [facility] SERVICESRJACK HUGHST[facility] HOSPITALTRN [facility]US[facility]ETS [facility] [address] [address] UA COLOR Yellow Yellow UA APPEARANCE Clear Clear UA GLUCOSE Negative Negative UA KETONES Negative Neg UA BLOOD Negative Neg UA PROTEIN Negative Neg UA NITRITE Negative Neg UA BILIRUBIN Negative Neg UA SPECIFIC GRAVITY 1.017 1.016-1.02 2 UA pH 6.0 5.0-9.0 UA UROBILINOGEN <2.0 <2.0 UA LEUKOCYTE ESTERASE Negative Neg Feb 07, 2022 [facility] CBC AND DIFF Specimen Type: BLOOD 01:43 PM [facility]ETS [facility] (AUTO) No comment enter ed. Ordering Provid er: DIMITRI SCRUGGS Report Released Date/Time: Feb 07, 2022 07:49 AM Reporting Lab: [facility] [place] [facility] [address] [address] Performing Lab: [facility] [place] [facility] [address] [address] WBC 6.22 4.50-11.00 RBC 5.24 4.23-5.66 HGB 15.7 12.8-17 HCT 44.8 39.2-50.4 MCV 85.5 82-99 MCHC 35.0 30.8-35.1 PLT 390 H 140-360 RDW-CV 11.4 L 12.0-16.0 [place], Abs 0.46 0.30-1.10 MCH 30.0 26.2-32.6 Neut % 60.2 Lymph % 30.1 [place] % 7.4 Eos % 1.1 Baso % 0.6 Neut, Abs 3.74 2.20-7.60 Lymph, Abs 1.87 1.00-3.20 Eos, Abs 0.07 0.03-0.44 Baso, Abs 0.04 0.01-0.13 Immature Gran % 0.6 Immature Gran, Abs 0.04 0.00-0.06 Jan 30, 2022 11:25 [facility] THYROID TOTAL T4 Specimen Ty pe: SERUM AM [place] [facility] No comment enter ed. Ordering Provid er: YINA HAGAN Report Released Date/Time: Jan 30, 2022 10:32 AM Reporting Lab: [facility] [place] [facility] [address] [address] Performing Lab: [facility] [place] [facility] [address] [facility] [address] THYROID TOTAL T4 8.86 4.5-12.0 Jan 30, 2022 [facility] TESTOSTERONE, TOTAL Specimen Ty pe: SERUM 11:25 AM [place] [facility] No comment enter ed. Ordering Provid er: YINA HAGAN Report Released Date/Time: Jan 30, 2022 10:32 AM Reporting Lab: [facility] [place] [facility] [address] [address] Performing Lab: [facility] [place] [facility] [address] [facility] [place] [address] TESTOSTERONE, TOTAL 525.91 220.00-892 .00 Jan 30, 2022 11:25 [facility] SERVICESRJACK HUGHST[facility] HOSPITALTRN CBC AND DIFF Specimen Typ e: BLOOD AM [facility] (AUTO) No comment enter ed. Ordering Provid er: YINA HAGAN Report Released Date/Time: Jan 30, 2022 10:32 AM Reporting Lab: [facility] SERVICESRJACK [facility] HOSPITALTRN [facility]US[facility]ETS [facility] [address] [address] Performing Lab: [facility] SERVICESRJACK HUGH[facility] HOSPITALTRN [facility]USUS[facility] [address] [address] WBC 2.65 L 4.50-11.00 RBC 5.29 4.23-5.66 HGB 15.7 12.8-17 HCT 46.2 39.2-50.4 MCV 87.3 82-99 MCHC 34.0 30.8-35.1 PLT 152 140-360 RDW-CV 11.5 L 12.0-16.0 MCH 29.7 26.2-32.6 Jan 30, 2022 [facility] HEMOGLOBIN A1C Specimen Type: BLOOD 11:25 AM [facility] PANEL Comment: Values obtained from A1C measurements can vary. For typical A1C assays, a reported value of 7.0 could actually be between 6.72 and 7.28 if measured by a reference method. A reported value of 9 .0 could actuall y be between 8.73 and 9.27. Ref: http://www.ngsp.org/CAPdata.asp Ordering Provid er: YINA HAGAN Report Released Date/Time: Jan 30, 2022 10:32 AM Reporting Lab: [facility] SERVICESRJACK [facility]OSPITALTRN [facility]US[facility] [address] [address] Performing Lab: [facility] [address] [address] HEMOGLOBIN A1C 4.6 4.0-5.6 Jan 30, 2022 11:25 [facility] LIPID PANEL FASTING Specimen Type: SERUM AM [facility] No comment enter ed. Ordering Provid er: YINA HAGAN Report Released Date/Time: Jan 30, 2022 10:32 AM Reporting Lab: [facility] [place] [facility] [address] [address] Performing Lab: [facility] [place] [facility] [address] [address] CHOLESTEROL 167 <7-199 TRIGLYCERIDE 112 0-150 LDL calculated 108 0-129 CHOL/HDL 4.5 HDL CHOLESTEROL 37 L 40-60 Jan 30, 2022 [facility] BASIC METABOLIC PANEL Specimen Type: SERUM 11:25 AM [place] [facility] (fasting) No comment enter ed. Ordering Provid er: YINA HAGAN Report Released Date/Time: Jan 30, 2022 10:32 AM Reporting Lab: [facility] [place] [facility] [address] [address] Performing Lab: [facility] [place] [facility] [address] [address] UREA NITROGEN 13 7-25 GLUCOSE 102 H [...] [facility]N [place] [facility] [address] [address] Performing Lab: [facility] [place] [facility] [address] [address] TSH 0.82 0.35-5.00 Jan 30, 2022 11:25 [facility] [place] VITAMIN B12 S pecimen Type: SERUM AM [facility] No comment enter ed. Ordering Provid er: YINA HAGAN Report Released Date/Time: Jan 30, 2022 10:32 AM Reporting Lab: [facility] [place] [facility] [address] [address] Performing Lab: [facility] [place] [facility] [address] [address] VITAMIN B12 354 200-900 Jan 30, 2022 11:25 [facility] LIVER FUNCTION Specimen Typ e: SERUM AM [place] [facility] No comment enter ed. Ordering Provid er: YINA HAGAN Report Released Date/Time: Jan 30, 2022 10:32 AM Reporting Lab: [facility] [place] [facility] [address] [address] Performing Lab: [facility] SERVICESRL WSTRN [facility] [address] [address] PROTEIN,TOTAL 7.2 6.0-8.3 ALBUMIN 4.0 3.5-5.0 ALKALINE PHOSPHATASE 57 40-150 AST 37 H 5-34 ALT 36 <6-55 BILIRUBIN, TOTAL 0.9 0.2-1.2 Jan 30, 2022 11:25 [facility]RL TRN VITAMIN D (25-[place]) Specimen T ype: SERUM AM [facility] No comment enter ed. Ordering Provid er: YINA HAGAN Report Released Date/Time: Jan 30, 2022 10:32 AM Reporting Lab: [facility]RL [facility] [place] [facility] [address] [address] Performing Lab: [facility] SERVICESRL W[facility]N [facility] [address] [address] VITAMIN D (25-[place]) 38 20-50 Jan 30, 2022 [facility] MICROSCOPIC AUTOMATED, Specimen Type: URINE 11:25 AM [facility] URINE No comment enter ed. Ordering Provid er: YINA HAGAN Report Released Date/Time: Jan 30, 2022 10:32 AM Reporting Lab: [facility] [place] [facility] [address] [address] Performing Lab: [facility] [place] [facility] [address] [address] UA WBC 0-5 0-5 UA MUCUS FEW Trace UA RBC 3-5 0-3 Jan 30, 2022 [facility] DIFFERENTIAL, MANUAL Specimen T ype: BLOOD 11:25 AM [facility] Comment: Giant platelets present. SENT FOR PATHOLOGY REVIEW Ordering Provid er: YINA HAGAN Report Released Date/Time: Jan 30, 2022 10:32 AM Reporting Lab: [facility] [address] [address] Performing Lab: [facility] [address] [address] SEGS 47 L 48-78 BANDS 5 0-10 LYMPHS 16 10-55 MONOS 23 H 2-12 VARIANT LYMPHOCYTES 5 0-6 OTHER/CELL 4 Jan 30, 2022 11:25 [facility] URINALYSIS S pecimen Type: URINE AM H[facility] No comment enter ed. Ordering Provid er: BENTLEYYINA Report Released Date/Time: Jan 30, 2022 10:32 AM Reporting Lab: [facility] [address] [address] Performing Lab: [facility] [address] [address] UA COLOR Yellow Yellow UA APPEARANCE Clear Clear UA GLUCOSE Negative Negative UA KETONES Negative Neg UA BLOOD Moderate Neg UA PROTEIN 30 Neg UA NITRITE Negative Neg UA BILIRUBIN Negative Neg UA SPECIFIC GRAVITY 1.027 H 1.016-1.02 2 UA pH 5.0 5.0-9.0 UA UROBILINOGEN <2.0 <2.0 UA LEUKOCYTE ESTERASE Negative Neg Jan [facility] LYME Specimen Type: SERUM 14, WSTRN SEROLOGY Comment: [facility] was performed using the FDA-approved Demetrius YINA Borrelia burdorferi modified two-tier test system. This modified methodology uses a second EIA in place of a western im 2021 [place] PANEL munoblot assay, which the FDA has determined is substantially equivalent to or better than standard two-tier testing using western blot. Supplemental testing with a second EIA meets CDC guidelines for 11:25 [facility] Lyme disease te sting. Performance characteristics of the panel were validated at the [place] [facility]. Results are considered positive only if the initial screening EIA is positiv AM e or equivocal, and either or both supplemental EIAs (for IgM and IgG) are positive. Diagnosis of Lyme disease should not be based solely on laboratory results. Clinical and exposure history must be con sidered. Positiv e antibody results reflect prior immunologic exposure, and do not necessarily indicate active infection. False positive results are possible in patients with other spirochetal infections , infectious mon onucleosis, and connective tissue disorders. Negative results do not exclude B. burgdorferi infection. Only 10-40% of patients with erythema migrans alone have detectable antibodies. Fal se negative resu lts are possible, if specimens are drawn too soon after infection before an antibody response. Antibody induction may be aborted by early antibiotic therapy. Results in immunosuppressed individuals shou ld be interpreted with caution. If Lyme disease is strongly suspected, but antibody was not detected, a second specimen collected about 2-4 weeks after the first should be tested. This t est is NOT for u se in screening individuals without signs, symptoms or exposure history. Physicians should report all cases of Lyme disease to their state and local health departments, if applicable. [facility] State Form URL is: http://www.[place].gov/dph/dru/dph/infectious_diseases/pdf_forms_/[email or web address].pdf Ordering Provid er: YINA HAGAN Report Released Date/Time: Feb 03, 2022 12:51 PM Reporting Lab: [facility] [place] [facility] [address] [address] Performing Lab: [place] [facility] [place] [facility] [address] [facility] [address] TIER 1 LYME SCREENING EIA Negative Nega tive LYME AB FINAL INTERPRETATION Negative N egative Jan 30, 2022 11:25 [facility] SMEAR CONSULT ([facility]) Specimen Type: BLOOD AM [place] [facility] Comment: SEE HE [id number] Ordering Provid er: YINA HAGAN Report Released Date/Time: Jan 30, 2022 12:51 PM Reporting Lab: [place] [facility] [place] [facility] [address] [address] Performing Lab: [place] [facility] [place] [facility] [address] [address] SMEAR CONSULT ([facility]) comment Social History: Smoking Status (Most current) and Tobacco Use (All prior to encounter date) This section includes the most current, and the historical, smoking and tobacco-related health factors from the [facility] where the Encounter took place.Current Smoking Status This section includes the most current smoking, or tobacco-related health factor, from the [facility] where the Encounter took place. Date/Time Current Smoking Status Comment Facility May 23, 2021 02:30 PM [facility]-TOBACCO NEVER USED [facility] Encounter Notes: All associated encounter notes This section contains the clinical notes associated to the Encounter. Date/Time Encounter Note(s) Provider Source Feb 03, 2022 09:53 AM TELEHEALTH NOTE: LUIS VALLEJO [facility] LOCAL TITLE: TELEPHONE NOTE/[facility] STANDARD TITLE: TELEHEALTH NOTE DATE OF NOTE: FEB 03, 2022@09:53 ENTRY DATE: FEB 03, 2022@09:53:36 AUTHOR: LUIS VALLEJO EXP COSIGNER: URGENCY: STATUS: COMPLETED Called spoke with pt to confirm dental appointme nt on 02/04/2022 at 2:15 pm /[email or web address]/ LUIS VALLEJO [employer]PERVIS[employer] GENERAL Signed: 02/03/2022 09:56
--- OUTSIDE RECORDS SUMMARY | 2022-04-18 10:17 | XMS_ITS ---
:1990 Author Organization Department [facility] [place] Address [address] [place] [address] Support Name Relationship Address Phone TETE TRAN Unavailable [address] [facility] [place] [address] THOMAS MONTOYA Unavailable [address] [facility] [place] [address] Insurance Providers: All historical and current Section Date Range: From patient's date of to the date document was created.This section includes the names of all active insurance providers for the patient. Insurance Type of Plan Start of End of Group Member Insurance Policy P atient's Provider Coverage Name Policy Policy Number ID Provider's Ojeda's Relationship Coverage Coverage Telephone Name to Policy Number Ojeda [facility] Aug 03, [id number] ALIAROSINA Mane 2019 [id number] STEPHANIE JOHNSON [facility] ORGANIZ E DEPT Selected Encounter This section includes the information on record at [place] for the Encounter. Date/Time Encounter Type Encounter Description Reason Provider Source Feb 03, 2022 03:12 Outpatient Encounter COMMUNITY CARE PM CONSULT IHE [...] 04, 2022 02:15 PM [facility] Feb 06, 2022 04:00 PM AMBULATORY - PS[facility]CHIATRY [facility] [place] [facility] Feb 07, 2022 01:00 PM AMBULATORY [...] [facility] [place] [facility] Mar 28, 2022 09:00 AM AMBULATORY - PSYCHIATRY [facility] [place] [facility] Apr 17, 2022 01:00 PM AMBULATORY - NONE [facility] [place] [facility] Apr 25, 2022 09:00 AM AMBULATORY - PSYCHIATRY [facility] [place] [facility] May 09, 2022 09:00 AM AMBULATORY - PSYCHIATRY [facility] [place] [facility] May 23, 2022 09:00 AM AMBULATORY - PSYCHIATRY [facility] [place] [facility] Jul 17, 2022 08:30 AM AMBULATORY - NONE [facility] [place] [facility] Lab Results: +/- 30 days of [...] Specimen Typ e: SERUM 01:43 PM [place] [facility] AGGLUTINATION Comment: REFERE NCE RANGE: <1:80 [...] performance characteri stics have been determined by [employer] It has not been cleared or approved by FDA. This assay has been validated pursuant to the CLIA regulations and is used for clinical purposes. Test perfor med by [facility] [address] [place] [address] Web Pressman: Alejandrina Quick MD,PHD,[place] Test performed at [facility] [place]. Ordering Provid er: DIMITRI SCRUGGS Report Released Date/Time: Feb 07, 2022 01:27 PM Reporting Lab: [facility] [address] [facility] [address] Performing Lab: [facility] [place] [facility] [address] [facility], [address] [facility] [address] BRUCELLA ANTIBODY, AGGLUTINATION <1:80 Feb 07, 2022 [facility] BABESIA MICROTI Specimen Type: SERUM 01:43 PM [facility] ANTIBODIES (IgG, Comment: REFER ENCE RANGE: [...] analytical performance characteristics have been determined by [employer] [place], [place]. It has not been cleared or approved by the U.S. Food and Drug A dministration. T his assay has been validated pursuant to the CLIA regulations and is used for clinical purposes. Test Performed by [facility] [place], [employer] [place], [address] [facility] hospitaleileen [place], [place] Ronald Abdul M.D., Ph.D., Director of Laboratories , CLIA [id number] TEST PERFORMED AT: , Ordering Provid er: DIMITRI SCRUGGS Report Released Date/Time: Feb 07, 2022 01:29 PM Reporting Lab: [facility] [address] [facility] [address] Performing Lab: [facility] [address] [facility] [address], [address] [facility] [address] Babesia microti IgG <1:64 SEE BELOW Babesia microti IgM <1:20 SEE BELOW BABESIA MICROTI AB INTER SEE NOTE Feb 07, 2022 [facility] ANAPLASMA AND Specimen Type: SERUM 01:43 PM [facility] EHRLICHIA AB PANEL Comment: REF ERENCE [...] performance c haracteristics have been determined by [facility], [place], [place]. It has not been cleared or [...] analytical performance characteristics have been determined by [employer] [place], [place]. It has not been cleared or approved by the U.S. Food and Drug Administration. This assay has been validated pursuant to the CLIA regulations and is used for clinical purposes. Test Performed by [facility], [facility], [address] [place] [address] Ronald Abdul M.D., Ph.D., Director of Laboratories , CLIA [id number] TEST PERFORMED AT: , Ordering Provid er: DIMITRI SCRUGGS Report Released Date/Time: Feb 07, 2022 01:33 PM Reporting Lab: [facility] [address] [facility] [address] Performing Lab: [facility] [address] [facility], [address] [place] [address] E. chaffeensis Ab IgG <1:64 SEE BELO W E. chaffeensis Ab IgM <1:20 SEE BELO W A.phagocytophilum Ab IgG <1:64 SEE B ELOW A.phagocytophilum Ab IgM <1:20 SEE B ELOW EHRLICHIA CHAFFEENSIS AB INTER SEE NOTE A. phagocytophilum inter SEE NOTE Feb 07, 2022 [facility] BABESIA MICROTI, Specimen Type: BLOOD 01:43 PM [facility] DNA PCR(V) Comment: The an alytical performance characteristics of this test have been determined by [facility]. It has not been cleared by the FDA. Ordering Provid er: DIMITRI SCRUGGS Report Released Date/Time: Feb 07, 2022 01:29 PM Reporting Lab: [facility] [address] [facility] [address] Performing Lab: [facility] [address] [facility] [address] BABESIA MICROTI, DNA PCR(WHV) Not Detected Not Detected Feb 07, 2022 [facility] RICKETTSIA ANTIBODY Specimen Ty pe: SERUM 01:43 PM [facility] PANEL (Q) Comment: Test P erformed by Betty Tracey Snappli Aaliyah [facility], [address] [place], [place] Ronald Abdul M.D., Ph.D., Director of Laboratories , CLIA [id number] TEST PERFORMED AT: , Ordering Provid er: DIMITRI SCRUGGS Report Released Date/Time: Feb 07, 2022 01:33 PM Reporting Lab: [facility] [address] [facility] [address] Performing Lab: [facility] [address] [place], [address] [facility] [address] RMSF IgG Not Detected Not Detected RMSF IgM Not Detected Not Detected R. typhi IgM Not Detected Not Detected Jan [facility] LYME Specimen Type: SERUM 22, [facility] SEROLOGY Comment: The re sults are supportive evidence for the presence of antibodies and exposure to Borrelia burgdorferi. The LYME SEROLOGY PANEL was performed using the FDA-approved Demetrius YINA Borrelia burdor 2021 [facility] PANEL feri modified tw o-tier test system. This modified methodology uses a second EIA in place of a western immunoblot assay, which the FDA has determined is substantially equivalent to or better than stand 01:43 [facility] damaris two-tier aren ting using western blot. Supplemental testing with a second EIA meets CDC guidelines for Lyme disease testing. Performance characteristics of the panel were validated at the [facility] lar Diagnostics Laboratory. Results are considered [...] and local health departments, if applicable. The [place] State Form URL is: http://www.ct.gov/dph/dru/dph/infectious_diseases/pdf_forms_/au63_clqh.pdf Ordering Provid er: DIMITRI SCRUGGS Report Released Date/Time: Feb 07, 2022 07:49 AM Reporting Lab: [place] [facility]ine[facility] [place] [facility] [address] [facility] [address] Performing Lab: [facility] [address] [facility] [address] TIER 1 LYME SCREENING EIA Presumptive Positive Negative LYME AB FINAL INTERPRETATION POSITIVE HH N egative TIER 2 LYME EIA,IgG Negative Negative TIER 2 LYME EIA,IgM POSITIVE HH Negative Feb 07, 2022 01:43 PM [facility] [place] FOLATE Specimen Type: SERUM HCS No comment enter ed. Ordering Provid er: DIMITRI SCRUGGS Report Released Date/Time: Feb 07, 2022 07:49 AM Reporting Lab: [facility] [place] [facility] [address] [facility] [address] Performing Lab: [facility] [place] [facility] [address] [facility] [address] FOLATE 12.99 >5.2 Feb 07, 2022 [facility] C REACTIVE PROTEIN Specimen Typ e: SERUM 01:43 PM [facility] ([facility]) Comment: Refere nce range changed on 01/07/11 [facility] reference ranges for ages >17 years: [...] Feb 07, 2022 01:18 PM Reporting Lab: [facility] [address] [facility] [address] Performing Lab: [facility] [address] [facility] [address] C REACTIVE PROTEIN (CRPH) 2.32 See eval. Feb 07, 2022 [facility] MALARIA/BABESIA EXAM Specimen T ype: BLOOD 01:43 PM [facility] Comment: Due to the cyclical shed rates of these parasites, one negative specimen does not rule out the possibility of a parasitic infection. Obtain specimens at 6-hour intervals for 36 hours for a com prehensive exami nation. Test Performed by [facility], [employer] [facility], [address] [place] [address] Ronald Abdul M.D., Ph.D., Director of Laboratories , [facility] [id number] TEST PERFORMED AT: , Ordering Provid er: DIMITRI SCRUGGS Report Released Date/Time: Feb 07, 2022 01:29 PM Reporting Lab: [facility] [address] [facility] [address] Performing Lab: [facility] [address], [address] [place] [address] MALARIA/BABESIA EXAM Negative Negative Feb 07, 2022 [facility] CORA SCREEN/TITER Specimen Type: SERUM 01:43 PM [facility] No comment enter ed. Ordering Provid er: DIMITRI SCRUGGS Report Released Date/Time: Feb 07, 2022 01:29 PM Reporting Lab: [facility] [address] [facility] [address] Performing Lab: [facility] [address] [facility] [facility] [address] CORA SCREEN NEG NEG <1:40 Feb 07, 2022 01:43 [facility] VITAMIN B12 Specimen Typ e: SERUM PM [place] [facility] No comment enter ed. Ordering Provid er: DIMITRI SCRUGGS Report Released Date/Time: Feb 07, 2022 07:49 AM Reporting Lab: [facility] [place] [facility] [address] [facility] [address] Performing Lab: [place] [facility] [place] [facility] [address] [facility] [address] VITAMIN B12 593 200-900 Feb 07, 2022 [facility] SED RATE, AUTOMATED Specimen Ty pe: BLOOD 01:43 PM [place] [facility] No comment enter ed. Ordering Provid er: DIMITRI SCRUGGS Report Released Date/Time: Feb 07, 2022 01:18 PM Reporting Lab: [facility] [address] [facility] [address] Performing Lab: [place] [facility] [place] [facility] [address] [facility] [address] SED RATE, AUTOMATED 9 0-15 Feb 07, 2022 [facility] URINALYSIS CLEAN Specimen Type: URINE 01:43 PM [place] [facility] CATCH No comment enter ed. Ordering Provid er: DIMITRI SCRUGGS Report Released Date/Time: Feb 07, 2022 07:50 AM Reporting Lab: [facility] [address] [facility] [address] Performing Lab: [place] [facility] [address] [facility] [address] UA COLOR Yellow Yellow UA APPEARANCE Clear Clear UA GLUCOSE Negative Negative UA KETONES Negative Neg UA BLOOD Negative Neg UA PROTEIN Negative Neg UA NITRITE Negative Neg UA BILIRUBIN Negative Neg UA SPECIFIC GRAVITY 1.017 1.016-1.02 2 UA pH 6.0 5.0-9.0 UA UROBILINOGEN <2.0 <2.0 UA LEUKOCYTE ESTERASE Negative Neg Feb 07, 2022 [facility] CBC AND DIFF Specimen Type: BLOOD 01:43 PM [place] [facility] (AUTO) No comment enter ed. Ordering Provid er: SCRUGGS,DIMITRI J Report Released Date/Time: Feb 07, 2022 07:49 AM Reporting Lab: [facility] [place] [facility] [address] [facility] [address] Performing Lab: [facility] [place] [facility] [address] [facility] [address] WBC 6.22 4.50-11.00 RBC 5.24 4.23-5.66 HGB 15.7 12.8-17 HCT 44.8 39.2-50.4 MCV 85.5 82-99 MCHC 35.0 30.8-35.1 PLT 390 H 140-360 RDW-CV 11.4 L 12.0-16.0 [place], Abs 0.46 0.30-1.10 MCH 30.0 26.2-32.6 Neut % 60.2 Lymph % 30.1 [place] % 7.4 Eos % 1.1 Baso % 0.6 Neut, Abs 3.74 2.20-7.60 Lymph, Abs 1.87 1.00-3.20 Eos, Abs 0.07 0.03-0.44 Baso, Abs 0.04 0.01-0.13 Immature Gran % 0.6 Immature Gran, Abs 0.04 0.00-0.06 Jan 30, 2022 11:25 [facility] THYROID TOTAL T4 Specimen Ty pe: SERUM AM [place] [facility] No comment enter ed. Ordering Provid er: YINA HAGAN Report Released Date/Time: Jan 30, 2022 10:32 AM Reporting Lab: [facility] [place] [facility] [address] [facility] [address] Performing Lab: [facility] [place] [facility] [address] [facility] [address] THYROID TOTAL T4 8.86 4.5-12.0 Jan 30, 2022 [facility] TESTOSTERONE, TOTAL Specimen Ty pe: SERUM 11:25 AM [place] [facility] No comment enter ed. Ordering Provid er: YINA HAGAN Report Released Date/Time: Jan 30, 2022 10:32 AM Reporting Lab: [facility] [place] [facility] [address] [facility] [address] Performing Lab: [facility] [place] [facility] [address] [facility] [address] TESTOSTERONE, TOTAL 525.91 220.00-892 .00 Jan 30, 2022 11:25 [facility] CBC AND DIFF Specimen Typ e: BLOOD AM [facility] (AUTO) No comment enter ed. Ordering Provid er: YINA HAGAN Report Released Date/Time: Jan 30, 2022 10:32 AM Reporting Lab: [facility] [address] [facility] [address] Performing Lab: [facility] [address] [facility] [address] WBC 2.65 L 4.50-11.00 RBC 5.29 4.23-5.66 HGB 15.7 12.8-17 HCT 46.2 39.2-50.4 MCV 87.3 82-99 MCHC 34.0 30.8-35.1 PLT 152 140-360 RDW-CV 11.5 L 12.0-16.0 MCH 29.7 26.2-32.6 Jan 30, 2022 [facility] HEMOGLOBIN A1C Specimen Type: BLOOD 11:25 AM [facility] PANEL Comment: Values obtained from [...] Jan 30, 2022 10:32 AM Reporting Lab: [facility] [address] [facility] [address] Performing Lab: [facility] [address] [facility] [address] HEMOGLOBIN A1C 4.6 4.0-5.6 Jan 30, 2022 11:25 [facility] LIVER FUNCTION Specimen Typ e: SERUM AM [facility] No comment enter ed. Ordering Provid er: YINA HAGAN Report Released Date/Time: Jan 30, 2022 10:32 AM Reporting Lab: [facility] [place] [facility] [address] [facility] [address] Performing Lab: [facility] [place] [facility] [address] [facility] [address] PROTEIN,TOTAL 7.2 6.0-8.3 ALBUMIN 4.0 3.5-5.0 ALKALINE [...] [place] [facility] [address] [facility] [address] Performing Lab: [facility] [place] [facility] [address] [facility] [address] UREA NITROGEN 13 7-25 GLUCOSE 102 H [...] [place] [facility] [address] [facility] [address] Performing Lab: [facility] [place] [facility] [address] [facility] [address] CHOLESTEROL 167 <7-199 TRIGLYCERIDE 112 0-150 LDL calculated 108 0-129 CHOL/HDL 4.5 HDL CHOLESTEROL 37 L 40-60 Jan 30, 2022 11:25 AM [facility] [place] TSH Specimen Type: SERUM HCS No comment enter ed. Ordering Provid er: YINA HAGAN Report Released Date/Time: Jan 30, 2022 10:32 AM Reporting Lab: [facility] [place] [facility] [address] [facility] [address] Performing Lab: [facility] [place] [facility] [address] [facility] [address] TSH 0.82 0.35-5.00 Jan 30, 2022 11:25 [facility] VITAMIN D (25-[place]) Specimen T ype: SERUM AM [place] [facility] No comment enter ed. Ordering Provid er: YINA HAGAN Report Released Date/Time: Jan 30, 2022 10:32 AM Reporting Lab: [facility] [place] [facility] [address] [facility] [address] Performing Lab: [facility] [place] [facility] [address] [facility] [address] VITAMIN D (25-[place]) 38 20-50 Jan 30, 2022 11:25 [facility] [place] VITAMIN B12 S pecimen Type: SERUM AM HCS No comment enter ed. Ordering Provid er: YINA HAGAN Report Released Date/Time: Jan 30, 2022 10:32 AM Reporting Lab: [facility] [place] [facility] [address] [facility] [address] Performing Lab: [facility] [place] [facility] [address] [facility] [address] VITAMIN B12 354 200-900 Jan 30, 2022 [facility] MICROSCOPIC AUTOMATED, Specimen Type: URINE 11:25 AM [facility] URINE No comment enter ed. Ordering Provid er: YINA HAGAN Report Released Date/Time: Jan 30, 2022 10:32 AM Reporting Lab: [facility] [place] [facility] [address] [facility] [address] Performing Lab: [facility] [place] [facility] [address] [facility] [address] UA WBC 0-5 0-5 UA MUCUS FEW Trace UA RBC 3-5 0-3 Jan 30, 2022 [facility] DIFFERENTIAL, MANUAL Specimen T ype: BLOOD 11:25 AM [facility] Comment: Giant platelets present. SENT FOR PATHOLOGY REVIEW Ordering Provid er: YINA HAGAN Report Released Date/Time: Jan 30, 2022 10:32 AM Reporting Lab: [facility] [address] [facility] [address] Performing Lab: [facility] [address] [facility] [address] SEGS 47 L 48-78 BANDS 5 0-10 LYMPHS 16 10-55 MONOS 23 H 2-12 VARIANT LYMPHOCYTES 5 0-6 OTHER/CELL 4 Jan 30, 2022 11:25 [facility]USE URINALYSIS S pecimen Type: URINE AM HCS No comment enter ed. Ordering Provid er: BENTLEYYINA Report Released Date/Time: Jan 30, 2022 10:32 AM Reporting Lab: [facility] [address] [facility] [address] Performing Lab: [facility] [address] [facility] [address] UA COLOR Yellow Yellow UA APPEARANCE Clear Clear UA GLUCOSE Negative Negative UA KETONES Negative Neg UA BLOOD Moderate Neg UA PROTEIN 30 Neg UA NITRITE Negative Neg UA BILIRUBIN Negative Neg UA SPECIFIC GRAVITY 1.027 H 1.016-1.02 2 UA pH 5.0 5.0-9.0 UA UROBILINOGEN <2.0 <2.0 UA LEUKOCYTE ESTERASE Negative Neg Jan [facility] LYME Specimen Type: SERUM 14, WSTRN SEROLOGY Comment: The [facility] SEROLOGY PANEL was performed using the FDA-approved Demetrius YINA Borrelia burdorferi modified two-tier test system. This modified methodology uses a second EIA in place of a western imm 2021 [place] PANEL unoblot assay, w [facility] the FDA has determined is substantially equivalent to or better than standard two-tier testing using western blot. Supplemental testing with a second EIA meets CDC guidelines for 11:25 [facility] Lyme disease aren ting. Performance characteristics of the panel were validated at the [place] [facility]. Results are considered [...] and local health departments, if applicable. The [place] State Form U RL is: http://www.[place].gov/dph/dru/dph/infectious_diseases/pdf_forms_/oh78_evcm.pdf Ordering Provid er: BENTLEYYINA Report Released Date/Time: Feb 03, 2022 12:51 PM Reporting Lab: [place] [facility] [place] [facility] [address] [facility] [address] Performing Lab: [facility] [place] [facility] [address] [facility] [address] TIER 1 LYME SCREENING EIA Negative Nega tive LYME AB FINAL INTERPRETATION Negative N egative Jan 30, 2022 11:25 [facility] SMEAR CONSULT ([facility]) Specimen Type: BLOOD AM [place] [facility] Comment: SEE [id number] Ordering Provid er: YINA HAGAN Report Released Date/Time: Jan 30, 2022 12:51 PM Reporting Lab: [facility] [place] [facility] [address] [facility] [address] Performing Lab: [place] [facility] [place] [facility] [address] [facility] [address] SMEAR CONSULT ([facility]) comment Social History: Smoking Status (Most current) and Tobacco Use (All prior to encounter date) This section includes the most current, and the historical, smoking and tobacco-related health factors from the [facility] where the Encounter took place.Current Smoking Status This section includes the most current smoking, or tobacco-related health factor, from the [place] facility where the Encounter took place. Date/Time Current Smoking Status Comment Facility May 23, 2021 02:30 PM VA-TOBACCO NEVER USED [facility]L [facility] [place] [facility] Encounter Notes: All associated encounter notes This section contains the clinical notes associated to the Encounter. Date/Time Encounter Note(s) Provider Source Feb 03, 2022 03:12 PM NONVA NOTE: MICHELLE CHAPIN [facility] TITLE: COMMUNITY CARE COORDINATION PLAN STANDARD TITLE: NONVA NOTE DATE OF NOTE: FEB 03, 2022@15:12 ENTRY DATE: FEB 03, 2022@15:30:56 AUTHOR: MICHELLE CHAPIN EXP COSIGNER: URGENCY: STATUS: COMPLETED self-presented to community emergency fa cility Emergency Notification Intake Date Presenting to the Facility: [facility] Name: Hospital: [place], [place] [phone] Address: City: [place] State: Zip Code: Phone : Chief complaint: Unspecified fever Primary Diagnosis: Patient Admitted? No Community Facility Point of Contact: Name: Jerman Phone: inter-facility transfer, info from hospital /erickson CHAPIN AMSA Signed: 02/03/2022 15:34 Receipt Acknowledged By: * AWAITING SIGNATURE * NIRMAL SELBY * AWAITING SIGNATURE * NEDRA RIZZO * AWAITING SIGNATURE * CHASE MONTEMAYOR Feb 03, 2022 03:12 PM NONVA NOTE: MICHELLE CHAPIN [facility] TITLE: COMMUNITY CARE COORDINATION PLAN STANDARD TITLE: NONVA NOTE DATE OF NOTE: FEB 03, 2022@15:12 ENTRY DATE: FEB 03, 2022@15:30:09 AUTHOR: MICHELLE CHAPIN EXP COSIGNER: URGENCY: STATUS: COMPLETED COMMUNITY CARE COORDINATION PLAN Has ADDEND A self-presented to community emergency fa cility Emergency Notification Intake Date Presenting to the Facility: [facility] Name: Hospital: [place], [place] [phone] Address: City: [place] State: Zip Code: Phone : Chief complaint: Geralized weakness Primary Diagnosis: Patient Admitted? No Community Facility Point of Contact: Name: Jerman Phone: inter-facility transfer, info from hospital /erickson BLANDON Signed: 02/03/2022 15:35 02/03/2022 ADDENDUM STATUS: COMPLETED Dupicate [email or web address] disregard [email or web address] Signed: 02/03/2022 15:36
--- OUTSIDE RECORDS SUMMARY | 2022-04-18 10:17 | XMS_ITS | Encounter Summary ---
:1990 Author Organization [facility] rs Address [address] [place] [address] Support Name Relationship Address Phone TETE TRAN Unavailable [address] [facility] [place] [address] THOMAS MONTOYA Unavailable [address] [facility] [place] [address] Insurance Providers: All historical and current Section Date Range: From patient's date of to the date document was created.This section includes the names of all active insurance providers for the patient. Insurance Type of Plan Start of End of Group Member Insurance Policy P atient's Provider Coverage Name Policy Policy Number ID Provider's Ojeda's Relationship Coverage Coverage Telephone Name to Policy Number Ojeda [facility] Aug 03, [id number] [phone] ALIADarlyn CowanID ASHLEE GIMENEZ [id number] STEPHANIE JOHNSON [facility] E DEPT Selected Encounter This section includes the information on record at [place] for the Encounter. Date/Time Encounter Type Encounter Reason Provider Source Description Feb 04, 2022 09:16 Outpatient TELEPHONE TRIAGE Zonia MADERA AM Encounter N IHE Encounter Template Text not used by [place] Plan of Treatment: Future Appointments (+ 6 months) and Future Tests (+/- 45 days) The Plan of Treatment section includes future care activities for the patient from all [place] treatmentfacilities. This section includes future appointments and future orders which are active, pending orscheduled.Future Appointments This section includes appointments that were scheduled to occur 6 months from the date of the Encounter, up to a maximum of 20 appointments. The data comes from all [place] treatment facilities. Appointment Date/Time Appointment Type Appointment Facili ty Name Feb 06, 2022 04:00 PM AMBULATORY - PSYCHIATRY [facility] Feb 07, 2022 01:00 PM AMBULATORY [...] PSY[facility] Mar 28, 2022 09:00 AM AM[facility] [place] [facility] Apr 17, 2022 01:00 PM AMBULATORY - NONE [facility] [place] [facility] Apr 25, 2022 09:00 AM AMBUL[facility] [place] [facility] May 09, 2022 09:00 AM AMBULATORY [facility]RY [facility] [place] [facility] May 23, 2022 09:00 AM AMBULATORY [facility]ATRY [facility] [place] [facility] Jul 17, 2022 08:30 AM AMBULATORY - NONE [facility] [place] [facility] Lab Results: +/- 30 days of the [...] Specimen Typ e: SERUM 01:43 PM [place] [facility] AGGLUTINATION Comment: REFERE NCE RANGE: <1:80 The [...] performance characteri stics have been determined by [facility]. It has not been cleared or approved by FDA. This assay has been validated pursuant to the CLIA regulations and is used for clinical purposes. Test perfor med by [email or web address] [facility] [address] [place] [address] Insurance Assistant: Alejandrina Quick MD,PHD,[place] [facility] [place]. Ordering Provid er: DIMITRI SCRUGGS Report Released Date/Time: Feb 07, 2022 01:27 PM Reporting Lab: [facility] App[facility] [address] [address] Performing Lab: [facility] Lil Monkey [facility] [address] [facility] [facility], [address] [address] BRUCELLA ANTIBODY, AGGLUTINATION <1:80 Feb 07, 2022 [facility] BABESIA MICROTI Specimen Type: SERUM 01:43 PM Lil Monkey [facility] ANTIBODIES (IgG, Comment: REFER ENCE RANGE: [...] analytical performance characteristics have been determined by [facility] [place]. It has not been cleared or approved by the U.S. Food and Drug A dministration. T his assay has been validated pursuant to the CLIA regulations and is used for clinical purposes. Test Performed by [facility], [facility][1], [address] [facility] Abhijit [place], [place] Ronald Abdul M.D., Ph.D., Director of Laboratories , CLIA [id number] TEST PERFORMED AT: , Ordering Provid er: IDMITRI SCRUGGS Report Released Date/Time: Feb 07, 2022 01:29 PM Reporting Lab: [facility] [address] [address] Performing Lab: [facility] [address] [place], [address] [facility] [address] Babesia microti IgG <1:64 SEE BELOW Babesia microti IgM <1:20 SEE BELOW BABESIA MICROTI AB INTER SEE NOTE Feb 07, 2022 [facility] ANAPLASMA AND Specimen Type: SERUM 01:43 PM [facility] EHRLICHIA AB PANEL Comment: REF ERENCE RANGE: [...] performance c haracteristics have been determined by [facility], [place], [place]. It has not been cleared or [...] analytical performance characteristics have been determined by [facility] [place], [place]. It has not been cleared or approved by the U.S. Food and Drug Administration. This assay has been validated pursuant to the CLIA regulations and is used for clinical purposes. Test Performed by [facility], [employer] [facility], [address] [place] [address] Ronald Abdul M.D., Ph.D., Director of Laboratories , CLIA [id number] TEST PERFORMED AT: , Ordering Provid er: DIMITRI SCRUGGS Report Released Date/Time: Feb 07, 2022 01:33 PM Reporting Lab: [facility] [address] [address] Performing Lab: [facility] [address] [facility], [address] [place] [address] E. chaffeensis Ab IgG <1:64 SEE BELO W E. chaffeensis Ab IgM <1:20 SEE BELO W A.phagocytophilum Ab IgG <1:64 SEE B ELOW A.phagocytophilum Ab IgM <1:20 SEE B ELOW EHRLICHIA CHAFFEENSIS AB INTER SEE NOTE A. phagocytophilum inter SEE NOTE Feb 07, 2022 [facility] BABESIA MICROTI, Specimen Type: BLOOD 01:43 PM [facility] DNA PCR(WHV) Comment: The an alytical performance characteristics of this test have been determined by [facility]. It has not been cleared by the FDA. Ordering Provid er: DIMITRI SCRUGGS Report Released Date/Time: Feb 07, 2022 01:29 PM Reporting Lab: [facility] [address] [address] Performing Lab: [facility] [address] [facility] [address] BABESIA MICROTI, DNA PCR(WHV) Not Detected Not Detected Feb 07, 2022 [facility] RICK[place] ANTIBODY Specimen Ty pe: SERUM 01:43 PM [facility] PANEL (Q) Comment: Test P erformed by [employer], [facility][1], [address] [place], [place] Ronald Abdul M.D., Ph.D., Director of Laboratories , CLIA [id number] TEST PERFORMED AT: , Ordering Provid er: DIMITRI SCRUGGS Report Released Date/Time: Feb 07, 2022 01:33 PM Reporting Lab: [facility] [place] [facility] [address] [address] Performing Lab: [facility] [address] [facility], [address] [address] RMSF IgG Not Detected Not Detected RMSF IgM Not Detected Not Detected R. typhi IgM Not Detected Not Detected Jose [facility] LYME Specimen Type: SERUM 22, [facility] SEROLOGY Comment: The re sults are supportive evidence for the presence of antibodies and exposure to Borrelia burgdorferi. The LYME SEROLOGY PANEL was performed using the FDA-approved Demetrius YINA Borrelia burdor 2021 [facility] PAN[facility] feri modified tw o-tier test system. This modified methodology uses a second EIA in place of a western immunoblot assay, which the FDA has determined is substantially equivalent to or better than stand 01:43 [facility] damaris two-tier aren ting using western blot. Supplemental testing with a second EIA meets CDC guidelines for Lyme disease testing. Performance characteristics of the panel were validated at the [facility]. Results are considered positive [...] applicable. The [place] State Form URL is: http://www.[place].gov/dph/dru/dph/infectious_diseases/pdf_forms_/bh41_ffwz.pdf Ordering Provid er: DIMITRI SCRUGGS Report Released Date/Time: Feb 07, 2022 07:49 AM Reporting Lab: [place] AnheloR ChorusTRN [place] [facility] [address] [address] Performing Lab: [place] [facility] [place] [facility] [address] [facility] [address] TIER 1 LYME SCREENING EIA Presumptive Positive Negative LYME AB FINAL INTERPRETATION POSITIVE HH N egative TIER 2 LYME EIA,IgG Negative Negative TIER 2 LYME EIA,IgM POSITIVE HH Negative Feb 07, 2022 01:43 PM [facility] [place] FOLATE Specimen Type: SERUM HCS No comment enter ed. Ordering Provid er: DIMITRI SCRUGGS Report Released Date/Time: Feb 07, 2022 07:49 AM Reporting Lab: [facility] [facility] [address] [address] Performing Lab: [place] [facility] [facility] [address] [address] FOLATE 12.99 >5.2 Feb 07, 2022 [place] [facility] C REACTIVE PROTEIN Specimen Typ e: SERUM 01:43 PM [facility] ([facility]) Comment: Refere nce range changed on 01/07/11 [facility] reference ranges for ages >17 years: [...] Feb 07, 2022 01:18 PM Reporting Lab: [facility] [place] [facility] [address] [address] Performing Lab: [facility] [address] [facility] [address] C REACTIVE PROTEIN (CRPH) 2.32 See eval. Feb 07, 2022 [facility] MALARIA/BABESIA EXAM Specimen T ype: BLOOD 01:43 PM [facility] Comment: Due to the cyclical shed rates of these parasites, one negative specimen does not rule out the possibility of a parasitic infection. Obtain specimens at 6-hour intervals for 36 hours for a com prehensive exami nation. Test Performed by [facility], [facility][1], [address] [place] [address] Ronald Abdul M.D., Ph.D., Director of Laboratories , [place] [id number] TEST PERFORMED AT: , Ordering Provid er: DIMTIRI SCRUGGS Report Released Date/Time: Feb 07, 2022 01:29 PM Reporting Lab: [facility] [address] [address] Performing Lab: [facility] [address], [address] [address] MALARIA/BABESIA EXAM Negative Negative Feb 07, 2022 [facility] CORA SCREEN/TITER Specimen Type: SERUM 01:43 PM [facility] No comment enter ed. Ordering Provid er: DIMITRI SCRUGGS Report Released Date/Time: Feb 07, 2022 01:29 PM Reporting Lab: [facility] [address] [address] Performing Lab: [facility] [address] [facility] [address] CORA SCREEN NEG NEG <1:40 Feb 07, 2022 01:43 [facility] VITAMIN B12 Specimen Typ e: SERUM PM [facility] No comment enter ed. Ordering Provid er: DIMITRI SCRUGGS Report Released Date/Time: Feb 07, 2022 07:49 AM Reporting Lab: [facility] [address] [address] Performing Lab: [facility] [address] [address] VITAMIN B12 593 200-900 Feb 07, 2022 [facility] SED RATE, AUTOMATED Specimen Ty pe: BLOOD 01:43 PM [facility] No comment enter ed. Ordering Provid er: DIMITRI SCRUGGS Report Released Date/Time: Feb 07, 2022 01:18 PM Reporting Lab: [facility] [address] [address] Performing Lab: [facility] [address] [address] SED RATE, AUTOMATED 9 0-15 Feb 07, 2022 [facility] URINALYSIS CLEAN Specimen Type: URINE 01:43 PM [facility] CATCH No comment enter ed. Ordering Provid er: DIMITRI SCRUGGS Report Released Date/Time: Feb 07, 2022 07:50 AM Reporting Lab: [facility] [address] [address] Performing Lab: [facility] [address] [address] UA COLOR Yellow Yellow UA APPEARANCE Clear Clear UA GLUCOSE Negative Negative UA KETONES Negative Neg UA BLOOD Negative Neg UA PROTEIN Negative Neg UA NITRITE Negative Neg UA BILIRUBIN Negative Neg UA SPECIFIC GRAVITY 1.017 1.016-1.02 2 UA pH 6.0 5.0-9.0 UA UROBILINOGEN <2.0 <2.0 UA LEUKOCYTE ESTERASE Negative Neg Feb 07, 2022 [facility] CBC AND DIFF Specimen Type: BLOOD 01:43 PM [facility] (AUTO) No comment enter ed. Ordering Provid er: DIMITRI SCRUGGS Report Released Date/Time: Feb 07, 2022 07:49 AM Reporting Lab: [facility] [place] [facility] [address] [address] Performing Lab: [facility] [place] [facility] [address] [address] WBC 6.22 4.50-11.00 RBC 5.24 4.23-5.66 HGB 15.7 12.8-17 HCT 44.8 39.2-50.4 MCV 85.5 82-99 MCHC 35.0 30.8-35.1 PLT 390 H 140-360 RDW-CV 11.4 L 12.0-16.0 Lasalle, Abs 0.46 0.30-1.10 MCH 30.0 26.2-32.6 Neut % 60.2 Lymph % 30.1 Lasalle % 7.4 Eos % 1.1 Baso % 0.6 Neut, Abs 3.74 2.20-7.60 Lymph, Abs 1.87 1.00-3.20 Eos, Abs 0.07 0.03-0.44 Baso, Abs 0.04 0.01-0.13 Immature Gran % 0.6 Immature Gran, Abs 0.04 0.00-0.06 Jan 30, 2022 11:25 [facility] THYROID TOTAL T4 Specimen Ty pe: SERUM AM [place] [facility] No comment enter ed. Ordering Provid er: YINA HAGAN Report Released Date/Time: Jan 30, 2022 10:32 AM Reporting Lab: [facility] [place] [facility] [address] [address] Performing Lab: [facility] [place] [facility] [address] [facility] [address] THYROID TOTAL T4 8.86 4.5-12.0 Jan 30, 2022 [facility] TESTOSTERONE, TOTAL Specimen Ty pe: SERUM 11:25 AM [place] [facility] No comment enter ed. Ordering Provid er: YINA HAGAN Report Released Date/Time: Jan 30, 2022 10:32 AM Reporting Lab: [facility] [place] [facility] [address] [address] Performing Lab: [place] [facility] [place] [facility] [address] [facility] [address] TESTOSTERONE, TOTAL 525.91 220.00-892 .00 Jan 30, 2022 [facility] HEMOGLOBIN A1C Specimen Type: BLOOD 11:25 AM [place] [facility] PANEL Comment: Values obtained from A1C measurements can vary. For typical A1C assays, a reported value of 7.0 could actually be between 6.72 and 7.28 if measured by a reference method. A reported value of 9 .0 could actuall y be between 8.73 and 9.27. Ref: http://www.ngsp.org/CAPdata.asp Ordering Provid er: YINA HAGAN Report Released Date/Time: Jan 30, 2022 10:32 AM Reporting Lab: [facility] [address] [address] Performing Lab: [facility] [address] HEMOGLOBIN A1C 4.6 4.0-5.6 Jan 30, 2022 11:25 [facility] CBC AND DIFF Specimen Typ e: BLOOD AM [place] [facility] (AUTO) No comment enter ed. Ordering Provid er: YINA HAGAN Report Released Date/Time: Jan 30, 2022 10:32 AM Reporting Lab: [facility] [address] [address] Performing Lab: [facility] [address] [address] WBC 2.65 L 4.50-11.00 RBC 5.29 4.23-5.66 HGB 15.7 12.8-17 HCT 46.2 39.2-50.4 MCV 87.3 82-99 MCHC 34.0 30.8-35.1 PLT 152 140-360 RDW-CV 11.5 L 12.0-16.0 MCH 29.7 26.2-32.6 Jan 30, 2022 11:25 [facility] LIPID PANEL FASTING Specimen Type: SERUM AM [place] [facility] No comment enter ed. Ordering Provid er: YINA HGAAN Report Released Date/Time: Jan 30, 2022 10:32 AM Reporting Lab: [facility] [address] Performing Lab: [facility] [place] [facility] [address] [address] CHOLESTEROL 167 <7-199 TRIGLYCERIDE 112 0-150 LDL calculated 108 0-129 CHOL/HDL 4.5 HDL CHOLESTEROL 37 L 40-60 Jan 30, 2022 [facility] BASIC METABOLIC PANEL Specimen Type: SERUM 11:25 AM [place] [facility] (fasting) No comment enter ed. Ordering Provid er: YINA HAGAN Report Released Date/Time: Jan 30, 2022 10:32 AM Reporting Lab: [facility] [place] [facility] [address] [address] Performing Lab: [facility] [place] [facility] [address] [address] UREA NITROGEN 13 7-25 GLUCOSE 102 H [...] [facility] [place] [facility] [address] [address] Performing Lab: [facility] [place] [facility] [address] [address] PROTEIN,TOTAL 7.2 6.0-8.3 ALBUMIN 4.0 3.5-5.0 ALKALINE PHOSPHATASE 57 40-150 AST 37 H 5-34 ALT 36 <6-55 BILIRUBIN, TOTAL 0.9 0.2-1.2 Jan 30, 2022 11:25 AM [facility] [place] TSH Specimen Type: SERUM HCS No comment enter ed. Ordering Provid er: YINA HAGAN Report Released Date/Time: Jan 30, 2022 10:32 AM Reporting Lab: [facility] [place] [facility] [address] [address] Performing Lab: [facility] [place] [facility] [address] [address] TSH 0.82 0.35-5.00 Jan 30, 2022 11:25 [facility] VITAMIN D (25-OH) Specimen T ype: SERUM AM [place] [facility] No comment enter ed. Ordering Provid er: YINA HAGAN Report Released Date/Time: Jan 30, 2022 10:32 AM Reporting Lab: [facility] [place] [facility] [address] [address] Performing Lab: [facility] [place] [facility] [address] [address] VITAMIN D (25-OH) 38 20-50 Jan 30, 2022 11:25 [facility] [place] VITAMIN B12 S pecimen Type: SERUM AM [facility] No comment enter ed. Ordering Provid er: YINA HAGAN Report Released Date/Time: Jan 30, 2022 10:32 AM Reporting Lab: [facility] [place] [facility] [address] [address] Performing Lab: [facility] [place] [facility] [address] [address] VITAMIN B12 354 200-900 Jan 30, 2022 [facility] MICROSCOPIC AUTOMATED, Specimen Type: URINE 11:25 AM [facility] URINE No comment enter ed. Ordering Provid er: YINA HAGAN Report Released Date/Time: Jan 30, 2022 10:32 AM Reporting Lab: [facility] [place] [facility] [address] [address] Performing Lab: [facility] [place] [facility] [address] [address] UA WBC 0-5 0-5 UA MUCUS FEW Trace UA RBC 3-5 0-3 Jan 30, 2022 [facility] DIFFERENTIAL, MANUAL Specimen T ype: BLOOD 11:25 AM [facility] Comment: Giant platelets present. SENT FOR PATHOLOGY REVIEW Ordering Provid er: YINA HAGAN Report Released Date/Time: Jan 30, 2022 10:32 AM Reporting Lab: [facility] [place] [facility] [address] [address] Performing Lab: [facility] [address] [address] SEGS 47 L 48-78 BANDS 5 0-10 LYMPHS 16 10-55 MONOS 23 H 2-12 VARIANT LYMPHOCYTES 5 0-6 OTHER/CELL 4 Jan 30, 2022 11:25 [facility] [place] URINALYSIS S pecimen Type: URINE AM HCS No comment enter ed. Ordering Provid er: BENTLEYYINA Report Released Date/Time: Jan 30, 2022 10:32 AM Reporting Lab: [facility] [address] [address] Performing Lab: [facility] [address] [address] UA COLOR Yellow Yellow UA APPEARANCE Clear Clear UA GLUCOSE Negative Negative UA KETONES Negative Neg UA BLOOD Moderate Neg UA PROTEIN 30 Neg UA NITRITE Negative Neg UA BILIRUBIN Negative Neg UA SPECIFIC GRAVITY 1.027 H 1.016-1.02 2 UA pH 5.0 5.0-9.0 UA UROBILINOGEN <2.0 <2.0 UA LEUKOCYTE ESTERASE Negative Neg Jan [facility] LYME Specimen Type: SERUM 14, [facility] SEROLOGY Comment: The [facility] SEROLOGY PANEL was performed using [...] second EIA meets CDC guidelines for 11:25 [facility] Lyme disease aren ting. Performance characteristics of the panel were validated at the [place] [facility]. Results are considered [...] departments, if applicable. The [place] State Form U RL is: http://www.[place].gov/dph/dru/dph/infectious_diseases/pdf_forms_/ex83_qtop.pdf Ordering Provid er: YINA HAGAN Report Released Date/Time: Feb 03, 2022 12:51 PM Reporting Lab: [facility] [place] [facility] [address] [address] Performing Lab: [facility] [place] [facility] [address] [facility] [address] TIER 1 LYME SCREENING EIA Negative Nega tive LYME AB FINAL INTERPRETATION Negative N egative Jan 30, 2022 11:25 [facility] ([facility]) Specimen Type: BLOOD AM [place] [facility] Comment: SEE [id number] Ordering Provid er: YINA HAGAN Report Released Date/Time: Jan 30, 2022 12:51 PM Reporting Lab: [place] [facility] [place] [facility] [address] [address] Performing Lab: [place] [facility] [facility] [address] [address] SMEAR CONSULT ([facility]) comment Vital Signs: All taken on the encounter date This section contains inpatient and outpatient Vital Signs collected on the date of the Encounter. Date/Time Temperature Pulse Blood Respiratory SP02 Pain Height Weight Aleksandr dy Source Pressure Rate Mass Index Feb 04 114/65 98 % [place] 2021 02:43 /min mm[Hg] [facility] PM [facility] Social History: Smoking Status (Most current) and Tobacco Use (All prior to encounter date) This section includes the most current, and the historical, smoking and tobacco-related health factors from the [place] facility where the Encounter took place.Current Smoking Status This section includes the most current smoking, or tobacco-related health factor, from the [place] facility where the Encounter took place. Date/Time Current Smoking Status Comment Facility May 23, 2021 02:30 PM [place]-TOBACCO NEVER USED [place] [facility] [place] [facility] Encounter Notes: All associated encounter notes This section contains the clinical notes associated to the Encounter. Date/Time Encounter Note(s) Provider Source Feb 04, 2022 09:16 RN PROGRESS NOTE: GITA MADERA [place] [facility] AM [facility] TITLE: [facility]: CLINICAL TRIAGE [place] [facility] STANDARD TITLE: RN PROGRESS NOTE DATE OF NOTE: FEB 04, 2022@09:16:10 ENTRY DATE: FEB 04, 2022@09:16:10 AUTHOR: GITA MADERA EXP COSIGNER: URGENCY: STATUS: COMPLETED [facility]: CLINICAL TRIAGE Has ADDENDA Patient Demographics Patient Name: GEORGE MONTOYA Patient Primary Address: [address] [place] [address] <[place] [address] Patient Primary Phone: [phone] Patient : 1990 SSN: [id number] Patient Age: 31 Caller Relationship: Self Emergency Contactx: THOMAS MONTOYA Emergency Contact Phonex: Triage Summary Nurse Summary: Vet reports rash x 1 week on both legs, hands, elbows, lower back, buttocks, and armpits. Pain Score: 0 (No Pain) Conducted triage/discussed symptoms Utilized the Triage Tool: Yes Chief Complaint: Rash System WHEN: Within 24 Hours Nurse's Recommendation / WHEN: Within 24 Hours System WHERE: Clinic Nurse's Recommendation / WHERE: Virtual Video Vi sit Nurse's Other / WHERE: [facility] RECOVERER Patient Disposition Patient/Caregiver agrees to plan of care: Yes Patient WHERE: Virtual Video Visit Patient WHEN: Within 24 hours Other - Patient Where Disposition: [facility] RECOVERER Summary of Actions Referred for [facility] Virtual Clinic Visit Transferred patient to [facility] Contact [facility] Codes Clinic/Location: V1 C[facility] PHONE CCC RN TXCC Triage Complete Triage Note: Phone Triage 04 Feb 2022 13:11:49 +0000 [facility] Demographics 31 y/o Male Results CC: Rash Software suggested: Within 24 Hours Software suggested follow-up location: Clinic Values and Measures Duration of CC: 1 Weeks Positive Responses HPI: headache HPI: rash, erythematous HPI: rash, generalized HPI: rash, pruritic HPI: rash, target or bulls eye pattern, pale ce nter VS: temperature not taken Negative Responses Denies: HPI: diarrhea Denies: HPI: fever, subjective Denies: HPI: hives, pink, pruritic Denies: HPI: intraoral vesicles, painful Denies: HPI: rash, duration longer than 1 week Denies: HPI: rash, erythematous, painful Denies: HPI: rash, erythematous, vesicular, lar ge vesicles Denies: HPI: rash, generalized, covers most the body Denies: HPI: rash, petechial Denies: HPI: rash, tender Denies: HPI: tick bite within past 2 weeks Denies: HPI: vomiting /ivelisse/ GITA MADERA RN, MSN Signed: 02/04/2022 09:16 Receipt Acknowledged By: 02/04/2022 09:38 /ivelisse/ Radha Wilkes MSN RN C NL Primary Care RN 02/04/2022 ADDENDUM STATUS: COMPLETED Vet scheduled for PCP visit on 02/07/22 /ivelisse/ Radha Wilkes MSN RN CNL Primary Care RN Signed: 02/04/2022 09:38 02/04/2022 ADDENDUM STATUS: COMPLETED V1 C[facility] CCC RECOVERER appt cancelled Pt already scheduled with PCP and needs a F2F ap pt /es/ JUAN BUTCHER APRN NURSE PRACTITIONER Signed: 02/04/2022 15:32
--- OUTSIDE RECORDS SUMMARY | 2022-04-18 10:18 | XMS_ITS | Encounter Summary ---
:1990 Author Organization Department [facility] rs Address [address] [place] [address] Support Name Relationship Address Phone TETE TRAN Unavailable [address] [facility] [place] [address] THOMAS MONTOYA Unavailable [address] [place] [address] Insurance Providers: All historical and current Section [...] Telephone Name to Policy Number Ojeda [facility] Aug 03, [id number] [phone] ROSA MARIA ChapoNM PATIENT [facility] 2019 [id number] STEPHANIE JOHNSON [facility] ORGANIZ E DEPT Selected Encounter This section includes the information on record at [place] for the Encounter. Date/Time Encounter Type Encounter Reason Provider Source Description Feb 04, 2022 INTRAORAL DENTAL ICD-10-CM K08.89 URVASHI DE LEON 02:15 PM PERIAPICAL EA Other specified ADD disorders of teeth and supporting structures with Provider Comments: Other specified disorders of teeth and supporting structures IHE Encounter Template Text not used by [facility] Assessments - Encounter Diagnoses This section includes the primary and secondary diagnoses documented for the Encounter. Date/Time Primary/Secondary Diagnosis Name Provider Source Diagnosis Feb 04, 2022 PRIMARY Other specified URVASHI DE LEON [place] [facility] WST RN 08:04 PM disorders of [place] [facility] teeth and supporting structures Feb 04, 2022 SECONDARY Disorder of teeth URVASHI DE LEON [place] [facility] W STRN 08:04 PM and supporting [place] [facility] structures, unspecified Plan of Treatment: Future Appointments (+ 6 months) and Future Tests (+/- 45 days) The Plan of Treatment section includes future care activities for the patient from all [facility]. This section includes future appointments and future [...] AMBULATORY - PSYCHIATRY [facility] [place] [facility] Feb 07, 2022 01:00 PM AMBULATORY - MEDICINE [facility] [place] [facility] Feb 10, 2022 01:15 PM AMBULATORY - MEDICINE [facility] [place] [facility] Feb 10, 2022 01:45 PM AMBULATORY - MEDICINE [facility] [place] [facility] Feb 12, 2022 09:00 AM AMBULATORY - PSYCHIATRY [facility] [place] [facility] Feb 14, 2022 12:00 PM AMBULATORY - PSYCHIATRY [facility] [place] [facility] Feb 25, 2022 01:00 PM AMBULATORY - PSYCHIATRY [facility] [place] [facility] Feb 27, 2022 02:00 PM AMBULATORY - PSYCHIATRY [facility] [place] [facility] Mar 17, 2022 03:00 PM AMBULATORY - PSYCHIATRY [facility] [place] [facility] Mar 28, 2022 09:00 AM AMBULATORY - PSYCHIATRY [facility] [place] [facility] Apr 17, 2022 01:00 PM AMBULATORY - NONE [facility] [place] [facility] Apr 25, 2022 09:00 AM AMBULATORY - PSYCHIATRY [facility] [place] [facility] May 09, 2022 09:00 AM AMBULATORY - PSYCHIATRY [facility] [place] [facility] May 23, 2022 09:00 AM AMBULATORY - PSYCHIATRY [facility] [place] [facility] Jul 17, 2022 08:30 AM AMBULATORY - NONE [facility] [place] [facility] Lab Results: +/- 30 days [...] Interpretation Reference Range Comment Feb 07, 2022 [facility] BRUCELLA ANTIBODY, Specimen Typ e: SERUM 01:43 PM [place] [facility] AGGLUTINATION Comment: REFERE NCE RANGE: [...] performance characteri stics have been determined by [email or web address]. It has not been cleared or approved by FDA. This assay has been validated pursuant to the CLIA regulations and is used for clinical purposes. Test perfor med by [facility] [address] [place] [address] Executive Recruiter: Alejandrina Quick MD,PHD,[place] Test performed at [email or web address], [place]. Ordering Provid er: DIMITRI SCRUGGS Report Released Date/Time: Feb 07, 2022 01:27 PM Reporting Lab: [facility] [address] [facility] [address] Performing Lab: [facility] [address], [address] [facility] [address] BRUCELLA ANTIBODY, AGGLUTINATION <1:80 Feb 07, 2022 [facility] BABESIA MICROTI Specimen Type: SERUM 01:43 PM [place] [facility] ANTIBODIES (IgG, Comment: REFER ENCE RANGE: [...] analytical performance characteristics have been determined by [employer] [place], [place]. It has not been cleared or approved by the U.S. Food and Drug A dministration. T his assay has been validated pursuant to the CLIA regulations and is used for clinical purposes. Test Performed by [facility], [email or web address] [facility], [address] [place], [place] Ronald Abdul M.D., Ph.D., Director of Laboratories , CLIA [id number] TEST PERFORMED AT: , Ordering Provid er: DIMITRI SCRUGGS Report Released Date/Time: Feb 07, 2022 01:29 PM Reporting Lab: [facility] [address] [facility] [address] Performing Lab: [facility] [address], [address] [facility] [address] Babesia microti IgG <1:64 SEE BELOW Babesia microti IgM <1:20 SEE BELOW BABESIA MICROTI AB INTER SEE NOTE Feb 07, 2022 [facility] ANAPLASMA AND Specimen Type: SERUM 01:43 PM [facility] EHRLICHIA AB PANEL Comment: REF ERENCE [...] performance c haracteristics have been determined by [facility] [place]. It has not been cleared or [...] analytical performance characteristics have been determined by [email or web address] [place], [place]. It has not been cleared or approved by the U.S. Food and Drug Administration. This assay has been validated pursuant to the CLIA regulations and is used for clinical purposes. Test Performed by [facility], [employer] [facility], [address] [place] [address] Ronald Abdul M.D., Ph.D., Director of Laboratories , CLIA [id number] TEST PERFORMED AT: , Ordering Provid er: DIMITRI SCRUGGS Report Released Date/Time: Feb 07, 2022 01:33 PM Reporting Lab: [facility] [address] [facility] [address] Performing Lab: [facility] [address], [address] [place] [address] E. chaffeensis Ab IgG <1:64 SEE BELO W E. chaffeensis Ab IgM <1:20 SEE BELO W A.phagocytophilum Ab IgG <1:64 SEE B ELOW A.phagocytophilum Ab IgM <1:20 SEE B ELOW EHRLICHIA CHAFFEENSIS AB INTER SEE NOTE A. phagocytophilum inter SEE NOTE Feb 07, 2022 [facility] BABESIA MICROTI, Specimen Type: BLOOD 01:43 PM [facility] DNA PCR(WHV) Comment: The an alytical performance characteristics of this test have been determined by [facility]. It has not been cleared by the FDA. Ordering Provid er: DIMITRI SCRUGGS Report Released Date/Time: Feb 07, 2022 01:29 PM Reporting Lab: [facility] [address] [facility] [address] Performing Lab: [facility] [address] [facility] [address] BABESIA MICROTI, DNA PCR(WHV) Not Detected Not Detected Feb 07, 2022 [facility] RICKETTSIA ANTIBODY Specimen Ty pe: SERUM 01:43 [facility] [place] PANEL (Q) Comment: Test P erformed by [facility], [email or web address] [facility], [address] [place] [address] Ronald Abdul M.D., Ph.D., Director of Laboratories , CLIA [id number] TEST PERFORMED AT: , Ordering Provid er: DIMITRI SCRUGGS Report Released Date/Time: Feb 07, 2022 01:33 PM Reporting Lab: [facility] [address] [facility] [address] Performing Lab: [facility] [address], [address] [place] [address] RMSF IgG Not Detected Not Detected RMSF IgM Not Detected Not Detected R. typhi IgM Not Detected Not Detected Jan [facility] LYME Specimen Type: SERUM 22, WSTRN SEROLOGY Comment: The re sults are supportive evidence for the presence of antibodies and exposure to Borrelia burgdorferi. The LYME SEROLOGY PANEL was performed using the FDA-approved Demetrius YINA Borrelia burdor 2021 [facility] PANEL feri modified tw o-tier test system. This modified methodology uses a second EIA in place of a western immunoblot assay, which the FDA has determined is substantially equivalent to or better than stand 01:43 [facility] damaris two-tier aren ting using western blot. Supplemental testing with a second EIA meets CDC guidelines for Lyme disease testing. Performance characteristics of the panel were validated [facility]. Results are considered positive [...] and local health departments, if applicable. The [place] State Form URL is: http://www.ct.gov/dph/dru/dph/infectious_diseases/pdf_forms_/sy99_whth.pdf Ordering Provid er: DIMITRI SCRUGGS Report Released Date/Time: Feb 07, 2022 07:49 AM Reporting Lab: [facility] [place] [facility] [address] [facility] [address] Performing Lab: [facility] [place] [facility] [address] [facility] [address] TIER 1 LYME SCREENING EIA Presumptive Positive Negative LYME AB FINAL INTERPRETATION POSITIVE HH N egative TIER 2 LYME EIA,IgG Negative Negative TIER 2 LYME EIA,IgM POSITIVE HH Negative Feb 07, 2022 01:43 PM [place] [facility] WSTRN [place] FOLATE Specimen Type: SERUM HCS No comment enter ed. Ordering Provid er: DIMITRI SCRUGGS Report Released Date/Time: Feb 07, 2022 07:49 AM Reporting Lab: [facility] [place] [facility] [address] [facility] [address] Performing Lab: [facility] WSTRN [place] [facility] [address] [facility] [address] FOLATE 12.99 >5.2 Feb 07, 2022 [facility] MALARIA/BABESIA EXAM Specimen T ype: BLOOD 01:43 PM [place] [facility] Comment: Due to the cyclical shed rates of these parasites, one negative specimen does not rule out the possibility of a parasitic infection. Obtain specimens at 6-hour intervals for 36 hours for a com prehensive exami nation. Test Performed by [facility], [email or web address] [facility], [address] [place] [address] Ronald Abdul M.D., Ph.D., Director of Laboratories , CLIA [id number] TEST PERFORMED AT: , Ordering Provid er: DIMITRI SCRUGGS Report Released Date/Time: Feb 07, 2022 01:29 PM Reporting Lab: [facility] [address] [facility] [address] Performing Lab: [facility] [address] [facility] [address], [address] [facility] [address] MALARIA/BABESIA EXAM Negative Negative Feb 07, 2022 [facility] CORA SCREEN/TITER Specimen Type: SERUM 01:43 PM [facility] No comment enter ed. Ordering Provid er: DIMITRI SCRUGGS Report Released Date/Time: Feb 07, 2022 01:29 PM Reporting Lab: [facility] [address] [facility] [address] Performing Lab: [facility] [address] [facility] [address] CORA SCREEN NEG NEG <1:40 Feb 07, 2022 [facility] C REACTIVE PROTEIN Specimen Typ e: SERUM 01:43 PM [facility] ([facility]) Comment: Refere nce range changed on 01/07/11 [facility] reference ranges for ages >17 years: [...] Feb 07, 2022 01:18 PM Reporting Lab: [facility] [place] [facility] [address] [facility] [address] Performing Lab: [place] [facility] [place] [facility] [address] [facility] [address] C REACTIVE PROTEIN (CRPH) 2.32 See eval. Feb 07, 2022 01:43 [facility] VITAMIN B12 Specimen Typ e: SERUM PM [place] [facility] No comment enter ed. Ordering Provid er: DIMITRI SCRUGGS Report Released Date/Time: Feb 07, 2022 07:49 AM Reporting Lab: [facility] [place] [facility] [address] [facility] [address] Performing Lab: [facility]INAWRTHOM[facility]ENTERTRN [facility] [address] [facility] [address] VITAMIN B12 [phone] Feb 07, 2022 [place] [facility] WSTRN SED RATE, AUTOMATED Specimen Ty pe: BLOOD 01:43 PM [facility] No comment enter ed. Ordering Provid er: DIMITRI SCRUGGS Report Released Date/Time: Feb 07, 2022 01:18 PM Reporting Lab: [facility] [place] [facility] [address] [facility] [address] Performing Lab: [facility] TRN [facility] [address] [facility] [address] SED RATE, AUTOMATED 9 0-15 Feb 07, 2022 [place] [facility]N URINALYSIS CLEAN Specimen Type: URINE 01:43 PM [facility] CATCH No comment enter ed. Ordering Provid er: DIMITRI SCRUGGS Report Released Date/Time: Feb 07, 2022 07:50 AM Reporting Lab: [facility] [place] [facility] [address] [facility] [address] Performing Lab: [facility] WSTRN [facility] [address] [facility] [address] UA COLOR Yellow Yellow UA APPEARANCE Clear Clear UA GLUCOSE Negative Negative UA KETONES Negative Neg UA BLOOD Negative Neg UA PROTEIN Negative Neg UA NITRITE Negative Neg UA BILIRUBIN Negative Neg UA SPECIFIC GRAVITY 1.017 1.016-1.02 2 UA pH 6.0 5.0-9.0 UA UROBILINOGEN <2.0 <2.0 UA LEUKOCYTE ESTERASE Negative Neg Feb 07, 2022 [facility] WSTRN CBC AND DIFF Specimen Type: BLOOD 01:43 PM [facility] (AUTO) No comment enter ed. Ordering Provid er: DIMITRI SCRUGGS Report Released Date/Time: Feb 07, 2022 07:49 AM Reporting Lab: [facility] [address] [facility] [address] Performing Lab: [facility] [address] [facility] [address] WBC 6.22 4.50-11.00 RBC 5.24 4.23-5.66 HGB 15.7 12.8-17 HCT 44.8 39.2-50.4 MCV 85.5 82-99 MCHC 35.0 30.8-35.1 PLT 390 H 140-360 RDW-CV 11.4 L 12.0-16.0 [place], Abs 0.46 0.30-1.10 MCH 30.0 26.2-32.6 Neut % 60.2 Lymph % 30.1 [place] % 7.4 Eos % 1.1 Baso % 0.6 Neut, Abs 3.74 2.20-7.60 Lymph, Abs 1.87 1.00-3.20 Eos, Abs 0.07 0.03-0.44 Baso, Abs 0.04 0.01-0.13 Immature Gran % 0.6 Immature Gran, Abs 0.04 0.00-0.06 Jan 30, 2022 11:25 [facility] WSTRN THYROID TOTAL T4 Specimen Ty pe: SERUM AM [place] [facility] No comment enter ed. Ordering Provid er: YINA HAGAN Report Released Date/Time: Jan 30, 2022 10:32 AM Reporting Lab: [facility] [place] [facility] [address] [facility] [address] Performing Lab: [facility]INAWRTHOM[facility]ENTERTRN [facility] [address] [facility] [address] THYROID TOTAL T4 8.86 4.5-12.0 Jan 30, 2022 [facility] TESTOSTERONE, TOTAL Specimen Ty pe: SERUM 11:25 AM [facility] No comment enter ed. Ordering Provid er: YINA HAGAN Report Released Date/Time: Jan 30, 2022 10:32 AM Reporting Lab: [facility]N [facility]HEN[facility] [address] [facility] [address] Performing Lab: [facility]N [facility] Beth [facility] [address] TESTOSTERONE, TOTAL 525.91 220.00-892 .00 Jan 30, 2022 [facility] HEMOGLOBIN A1C Specimen Type: BLOOD 11:25 AM [facility] PANEL Comment: Values obtained from A1C measurements can vary. For typical A1C assays, a reported value of 7.0 could actually be between 6.72 and 7.28 if measured by a reference method. A reported value of 9 .0 could actuall y be between 8.73 and 9.27. Ref: http://www.ngsp.org/CAPdata.asp Ordering Provid er: YINA HAGAN Report Released Date/Time: Jan 30, 2022 10:32 AM Reporting Lab: [facility] [address] [facility] [address] Performing Lab: [facility] [address] [facility] [address] HEMOGLOBIN A1C 4.6 4.0-5.6 Jan 30, 2022 11:25 [facility] TRN LIVER FUNCTION Specimen Typ e: SERUM AM [facility] No comment enter ed. Ordering Provid er: YINA HAGAN Report Released Date/Time: Jan 30, 2022 10:32 AM Reporting Lab: [facility] [address] [facility] [address] Performing Lab: [facility] [address] [facility] [address] PROTEIN,TOTAL 7.2 6.0-8.3 ALBUMIN 4.0 3.5-5.0 ALKALINE PHOSPHATASE 57 40-150 AST 37 H 5-34 ALT 36 <6-55 BILIRUBIN, TOTAL 0.9 0.2-1.2 Jan 30, 2022 11:25 [facility] W[facility]N CBC AND DIFF Specimen Typ e: BLOOD AM [place] [facility] (AUTO) No comment enter ed. Ordering Provid er: YINA HAGAN Report Released Date/Time: Jan 30, 2022 10:32 AM Reporting Lab: [facility] TRN [place] [facility] [address] [facility] [address] Performing Lab: [facility] WSTRN [place] [facility] [address] [facility] [address] WBC 2.65 L 4.50-11.00 RBC 5.29 4.23-5.66 HGB 15.7 12.8-17 HCT 46.2 39.2-50.4 MCV 87.3 82-99 MCHC 34.0 30.8-35.1 PLT 152 140-360 RDW-CV 11.5 L 12.0-16.0 MCH 29.7 26.2-32.6 Jan 30, 2022 11:25 [facility] LIPID PANEL FASTING Specimen Type: SERUM AM [place] [facility] No comment enter ed. Ordering Provid er: YINA HAGAN Report Released Date/Time: Jan 30, 2022 10:32 AM Reporting Lab: [facility] TRN [place] [facility] [address] [facility] [address] Performing Lab: [facility]RL TRN [place] [facility] [address] [facility] [address] CHOLESTEROL 167 <7-199 TRIGLYCERIDE 112 0-150 LDL calculated 108 0-129 CHOL/HDL 4.5 HDL CHOLESTEROL 37 L 40-60 Jan 30, 2022 [facility]N BASIC METABOLIC PANEL Specimen Type: SERUM 11:25 AM [place] [facility] (fasting) No comment enter ed. Ordering Provid er: YINA HAGAN Report Released Date/Time: Jan 30, 2022 10:32 AM Reporting Lab: [facility] W[facility] [place] [facility] [address] [facility] [address] Performing Lab: [place] [facility] [facility] [address] [facility] [address] UREA NITROGEN 13 7-25 GLUCOSE 102 H [...] [place] [facility] [address] [facility] [address] Performing Lab: [facility] [place] [facility] [address] [facility] [address] TSH 0.82 0.35-5.00 Jan 30, 2022 11:25 [facility] VITAMIN D (25-[place]) Specimen T ype: SERUM AM [place] [facility] No comment enter ed. Ordering Provid er: YINA HAGAN Report Released Date/Time: Jan 30, 2022 10:32 AM Reporting Lab: [facility] [place] [facility] [address] [facility] [address] Performing Lab: [facility] [place] [facility] [address] [facility] [address] VITAMIN D (25-[place]) 38 20-50 Jan 30, 2022 11:25 [facility] [place] VITAMIN B12 S pecimen Type: SERUM AM HCS No comment enter ed. Ordering Provid er: YINA HAGAN Report Released Date/Time: Jan 30, 2022 10:32 AM Reporting Lab: [facility] [place] [facility] [address] [facility] [address] Performing Lab: [facility] [place] [facility] [address] [facility] [address] VITAMIN B12 354 200-900 Jan 30, 2022 [facility] MICROSCOPIC AUTOMATED, Specimen Type: URINE 11:25 AM [place] [facility] URINE No comment enter ed. Ordering Provid er: YINA HAGAN Report Released Date/Time: Jan 30, 2022 10:32 AM Reporting Lab: [facility] [place] [facility] [address] [facility] [address] Performing Lab: [facility] [place] [facility] [address] [facility] [address] UA WBC 0-5 0-5 UA MUCUS FEW Trace UA RBC 3-5 0-3 Jan 30, 2022 [facility] DIFFERENTIAL, MANUAL Specimen T ype: BLOOD 11:25 AM [facility] Comment: Giant platelets present. SENT FOR PATHOLOGY REVIEW Ordering Provid er: YINA HAGAN Report Released Date/Time: Jan 30, 2022 10:32 AM Reporting Lab: [facility] WSTRN [place] [facility] [address] [facility] [address] Performing Lab: [facility] [address] [facility] [address] SEGS 47 L 48-78 BANDS 5 0-10 LYMPHS 16 10-55 MONOS 23 H 2-12 VARIANT LYMPHOCYTES 5 0-6 OTHER/CELL 4 Jan 30, 2022 11:25 [facility] URINALYSIS S pecimen Type: URINE AM [facility] No comment enter ed. Ordering Provid er: YINA HAGAN Report Released Date/Time: Jan 30, 2022 10:32 AM Reporting Lab: [facility] [address] [facility] [address] Performing Lab: [facility] [address] [facility] [address] UA COLOR Yellow Yellow UA APPEARANCE Clear Clear UA GLUCOSE Negative Negative UA KETONES Negative Neg UA BLOOD Moderate Neg UA PROTEIN 30 Neg UA NITRITE Negative Neg UA BILIRUBIN Negative Neg UA SPECIFIC GRAVITY 1.027 H 1.016-1.02 2 UA pH 5.0 5.0-9.0 UA UROBILINOGEN <2.0 <2.0 UA LEUKOCYTE ESTERASE Negative Neg Jan [facility] LYME Specimen Type: SERUM 14, WSTRN SEROLOGY Comment: The LY [place] SEROLOGY PANEL was performed using the FDA-approved Demetrius YINA Borrelia burdorferi modified two-tier test system. This modified methodology uses a second EIA in place of a western imm 2021 [place] PANEL unoblot assay, w [facility] the FDA has determined is substantially equivalent to or better than standard two-tier testing using western blot. Supplemental testing with a second EIA meets CDC guidelines for 11:25 [facility] Lyme disease aren ting. Performance characteristics of the panel were validated at the [facility]. Results are [...] and local health departments, if applicable. The [place] State Form U RL is: [email or web address]://[email or web address].gov/dph/dru/[email or web address]_[email or web address]_[email or web address] Ordering Provid er: YINA HAGAN Report Released Date/Time: Feb 03, 2022 12:51 PM Reporting [facility] [address] [address] Performing Lab: [facility] [address] [address] TIER 1 LYME SCREENING EIA Negative Nega tive LYME AB FINAL INTERPRETATION Negative N egative Jan 30, 2022 11:25 [facility] ([facility] Specimen Type: BLOOD AM [facility] Comment: SEE HE [id number] Ordering Provid er: YINA HAGAN Report Released Date/Time: Jan 30, 2022 12:51 PM Reporting Lab: [facility] [address] [address] Performing Lab: [facility] [place] [facility] [address] [facility] [place] [address] SMEAR CONSULT ([facility]) comment Vital Signs: All taken on the encounter date This section contains inpatient and outpatient Vital Signs collected on the date of the Encounter. Date/Time Temperature Pulse Blood Respiratory SP02 Pain Height Weight Aleksandr dy Source Pressure Rate Mass Index Feb 04 114/65 98 % [facility] 2021 02:43 /min mm[Hg] [facility] PM [facility] [place] [facility] Social History: Smoking Status (Most [...] NEVER USED [facility] [place] [facility] Encounter Notes: All associated encounter notes This section contains the clinical notes associated to the Encounter. Date/Time Encounter Note(s) Provider Source Feb 04, 2022 08:05 PM DENTISTRY CONSULT: URVASHI DE LEON SD [facility] L [facility] LOCAL TITLE: CONSULT REPORT/DENTAL [place] [facility] STANDARD TITLE: DENTISTRY CONSULT DATE OF NOTE: FEB 04, 2022@20:05 ENTRY DATE: FEB 04, 2022@20:05:06 AUTHOR: URVASHI DE LEON EXP COSIGNER: URGENCY: STATUS: COMPLETED Please see dental note on 02/04/2022. /ivelisse/ URVASHI DE LEON DMD Staff Dentist Signed: 02/04/2022 20:05 Feb 04, 2022 07:59 PM DENTISTRY NOTE: URVASHI DE LEON SD [facility] LOCAL TITLE: DENTAL NOTE [place] [facility] STANDARD TITLE: DENTISTRY NOTE DATE OF NOTE: FEB 04, 2022@19:59 ENTRY DATE: FEB 04, 2022@20:04:52 AUTHOR: URVASHI DE LEON EXP COSIGNER: URGENCY: STATUS: COMPLETED Patient Name: GEORGE MONTOYA, : [birth year], Age: 31 Visit: S: Feb 04, 2022@14:15 CWM/NO/DENTAL/DMD1 PM. Primary PCE Diagnosis: K08.89 (OTHER SPECIFIED DISORDERS OF TEETH AND SUPPORTING STRUCTURES). Dental Category: 15-OPC, Class IV. Treatment St atus: Active. Completed Care: (D0140) LIMIT ORAL EVAL PROBLM FOCUS. DX: K08.89 Other specified Disorders of Teeth a nd Supporting Structures (D0274) DENTAL BITEWING FOUR IMAGES. DX: K08.89 Other specified Disorders of Teeth a nd Supporting Structures (D0220) INTRAORAL PERIAPICAL FIRST. Tooth: 12. DX: K08.9 Disorder of Teeth and Supporting Stru ctures, unspecified (D0230) INTRAORAL PERIAPICAL EA ADD. Tooth: 14. DX: K08.9 Disorder of Teeth and Supporting Stru ctures, unspecified (D0230) INTRAORAL PERIAPICAL EA ADD. Tooth: 19. DX: K08.9 Disorder of Teeth and Supporting Stru ctures, unspecified (D0230) INTRAORAL PERIAPICAL EA ADD. Tooth: 21. DX: K08.9 Disorder of Teeth and Supporting Stru ctures, unspecified (D0230) INTRAORAL PERIAPICAL EA ADD. Tooth: 28. DX: K08.9 Disorder of Teeth and Supporting Stru ctures, unspecified (D0230) INTRAORAL PERIAPICAL EA ADD. Tooth: 30. DX: K08.9 Disorder of Teeth and Supporting Stru ctures, unspecified Presentation/Chief Complaint: Patient presented to dental clinic initially fo r comprehensive oral evaluation. Limited oral evaluation was perform ed today because radiographs for comprehensive oral evaluation w ere unable to be completed after some were taken, it stopped wor nain Chip in lower right back tooth (points to mesia l of #30). Food gets stuck there. No dental pain at time of appointment. Time out performed. Used full name and willow e. Checked and confirmed sterilization monitors in instrument packs. No reported symptoms of COVID-19. Patient rinsed with [employer] Enamel Care mouthwash at beginning of appointmen t. Vital Signs: Dental Pain (0-10): 0 02/04/2022 14:43 Blood Pressure (mmHg): 114/65 02/04/2022 14:43 Pulse (BPM): 58 02/04/2022 14:43 POX: 98% 02/04/2022 14:43 Reviewed medical history. Medications were revie wed and reconciled within scope of dental service. All dental-related medi cations are up to date. Active Allergies: No Known Allergies Oral cancer screening - no apparent pathology no christo at this visit. Oral Examination: Dental Examination: Missing Teeth: 1, 16, 17, 32. Caries: 15(M). Chipped: #30 (M). Asymptomatic. No swelling. No signs of infectio n. Existing Dental Restorations: Restored: 18(O) Amalgam, 3(DO) Amalgam, 3(OB) R esin, 12(O) Resin, 14(DO) Amalgam, 15(O) Resin. Assessment/Plan: Referred to assigned dentist for further treatm ent planning Final treatment plan to be completed at a later time Planned Procedures: (D0330) DENTAL PANORAMIC IMAGE: . DX: (). Phase 1 (D0150) COMPREHENSVE ORAL EVALUATION: . DX: (). (D2392) POST 2 [facility] RESINBASED CMPST: 30(MO). D X: (). (D2150) AMALGAM TWO SURFACES PERMANE: 15(MO). D X: (). Reviewed findings, risks/benefits/alternatives a ssociated with the proposed treatment plan, need for additional rad iographs at future appointment for comprehensive oral evaluation an d further development of treatment plan. Patient indicated he agreed to t reatment plan as discussed. Answered all questions. Advised him t o call if he has any concerns. Disposition: Next dental visit: Additional radiographs for comprehensive oral e valuation, restore #30 (MO). Patient to return to dental clinic for continui ng care. - - - - - - - - - - - - - - - - - - - - - - - - - - - - - - /ivelisse/ URVASHI DE LEON DMD Staff Dentist Signed: 02/04/2022 20:04
--- OUTSIDE RECORDS SUMMARY | 2022-04-18 10:18 | XMS_ITS | Encounter Summary ---
:1990 Author Organization Department [facility] rs Address [address] [place] [address] Support Name Relationship Address Phone TETE TRAN Unavailable [address] [place] [address] THOMAS MONTOYA Unavailable [address] [place] [address] Insurance Providers: All historical and current Section [...] Ojeda [facility] Aug 03, [id number] [phone] ROSINA CALLAHAN PATIENT [facility] [id number] STEPHANIE GALDAMEZ ORGANJUAN [facility] DEPT Selected Encounter This section includes the [facility]. Date/Time Encounter Type Encounter Description Reason Provider Source IHE Encounter Template Text not used by [facility]
--- OUTSIDE RECORDS SUMMARY | 2022-04-18 10:18 | XMS_ITS | Encounter Summary ---
:1990 Author Organization Department [facility] Address [address] [place] [address] Support Name Relationship Address Phone TETE TRAN Unavailable 36 [facility] [phone] 3 [place] [address] THOMAS MONTOYA Unavailable 6 [facility] [place] [address] Insurance Providers: All historical and current Section [...] Number O[facility] Aug 03, [id number] [phone] ALIAROSINA Mane [phone] STEPHANIE [facility] ORGANIZ E DEPT Selected Encounter This section includes the information on record at [place] for the Encounter. Date/Time Encounter Type Encounter Description Reason Provider Source Feb 04, 2022 12:30 Outpatient Encounter COMMUNITY CARE PM CONSULT IHE Encounter Template Text not used by [place] Plan of Treatment: Future Appointments (+ 6 months) and Future Tests (+/- 45 days) The Plan of Treatment section includes future care activities for the patient from all [place] treatmentfacilities. This section includes future appointments and future orders which are active, pending orscheduled.Future Appointments This section includes appointments that were scheduled to occur 6 months from the date of the Encounter, up to a maximum of 20 appointments. The data comes from all [place] treatment facilities. Appointment Date/Time Appointment Type Appointment Facili ty Name Feb 06, 2022 04:00 PM AMBULATORY - PSYCHIATRY [facility] Feb 07, 2022 01:00 PM [facility]IC[facility] [place] [facility] Feb 10, 2022 01:15 PM AMBULATORY [...] AMBULATORY - PS[facility]IAT[facility] [place] [facility] Mar 28, 2022 09:00 AM AMBULATORY - PS[facility]IATRY [facility] [place] [facility] Apr 17, 2022 01:00 PM AMBULATORY - NONE [facility] [place] [facility] Apr 25, 2022 09:00 AM AMBUL[facility] [place] [facility] May 09, 2022 09:00 AM AMBULAT[facility] [place] [facility] May 23, 2022 09:00 AM AMBUL[facility]ORY - [facility]IATRY [facility] [place] [facility] Jul 17, 2022 08:30 AM AMBULATORY - NONE [facility] [place] [facility] Lab Results: +/- 30 days of the encounter This section includes the Chemistry and Hematology Lab Results on record with [place] for the patient. Radiology Reports and Pathology Reports are provided separately, in subsequent sections.Lab Results This section contains the Chemistry/Hematology Results that were resulted 30 days before or 30 daysafter the date of the Encounter. Date/Time Source Result Type Result - Unit Interpretation Reference Range Comment Feb 07, 2022 [facility] BRUCELLA ANTIBODY, Specimen Typ e: SERUM 01:43 PM [place] [facility] AGGLUTINATION Comment: REFERE NCE RANGE: <1:80 The [...] performance characteri stics have been determined by [employer]. It has not been cleared or approved by FDA. This assay has been validated pursuant to the CLIA regulations and is used for clinical purposes. Test perfor med by [employer] [address] [place] [address] Front Maker Lockstitch: Alejandrina Quick MD,PHD,[place]. Ordering Provid er: DIMITRI SCRUGGS Report Released Date/Time: Feb 07, 2022 01:27 PM Reporting Lab: [facility] [address] [facility] [address] Performing Lab: [facility] [address] [facility], [address] [facility] [address] BRUCELLA ANTIBODY, AGGLUTINATION <1:80 Feb 07, 2022 [facility] BABESIA MICROTI Specimen Type: SERUM 01:43 PM [facility] ANTIBODIES (IgG, Comment: REFER ENCE RANGE: [...] analytical performance characteristics have been determined by [employer].[place], [place]. It has not been cleared or approved by the U.S. Food and Drug A dministration. T his assay has been validated pursuant to the CLIA regulations and is used for clinical purposes. Test Performed by [employer], [employer] [place], [address] [facility] Abhijit jeff[place], [place] Ronald Abdul M.D., Ph.D., Director of Laboratories , CLIA [id number] TEST PERFORMED AT: , Ordering Provid er: DIMITRI SCRUGGS Report Released Date/Time: Feb 07, 2022 01:29 PM Reporting Lab: [facility] [address] [facility] [address] Performing Lab: [facility] [address], [address] [facility] [address] Babesia microti IgG <1:64 SEE BELOW Babesia microti IgM <1:20 SEE BELOW BABESIA MICROTI AB INTER SEE NOTE Feb 07, 2022 [facility] ANAPLASMA AND Specimen Type: SERUM 01:43 PM [facility] EHRLICHIA AB PANEL Comment: REF ERENCE [...] performance c haracteristics have been determined by [employer] [facility], [place], [place]. It has not been cleared or [...] analytical performance characteristics have been determined by [employer] [place], [place]. It has not been cleared or approved by the U.S. Food and Drug Administration. This assay has been validated pursuant to the CLIA regulations and is used for clinical purposes. Test Performed by [facility], [employer] [facility], [address] [place], [place] Ronald Abdul M.D., Ph.D., Director of Laboratories , CLIA [id number] TEST PERFORMED AT: , Ordering Provid er: DIMITRI SCRUGGS Report Released Date/Time: Feb 07, 2022 01:33 PM Reporting Lab: [facility] [address] [facility] [address] Performing Lab: [facility] [address] [facility], [address] [place] [address] E. chaffeensis Ab IgG <1:64 SEE BELO W E. chaffeensis Ab IgM <1:20 SEE BELO W A.phagocytophilum Ab IgG <1:64 SEE B ELOW A.phagocytophilum Ab IgM <1:20 SEE B ELOW EHRLICHIA CHAFFEENSIS AB INTER SEE NOTE A. phagocytophilum inter SEE NOTE Feb 07, 2022 [facility] BABESIA MICROTI, Specimen Type: BLOOD 01:43 PM [facility] DNA PCR(WHV) Comment: The an alytical performance characteristics of this test have been determined by [facility]. It has not been cleared by the FDA. Ordering Provid er: DIMITRI SCRUGGS Report Released Date/Time: Feb 07, 2022 01:29 PM Reporting Lab: [facility] [address] [facility] [address] Performing Lab: [facility] [address] [facility] [address] BABESIA MICROTI, DNA PCR(WHV) Not Detected Not Detected Feb 07, 2022 [facility] RICKETTSIA ANTIBODY Specimen Ty pe: SERUM 01:43 PM [facility] PANEL (Q) Comment: Test P erformed by [employer], [employer] [facility], [address] [place], [place] Ronald Abdul M.D., Ph.D., Director of Laboratories , CLIA [id number] TEST PERFORMED AT: , Ordering Provid er: DIMITRI SCRUGGS Report Released Date/Time: Feb 07, 2022 01:33 PM Reporting Lab: [facility] [address] [facility] [address] Performing Lab: [facility] [address] [facility] [address], [address] [facility] [address] RMSF IgG Not Detected Not Detected RMSF IgM Not Detected Not Detected R. typhi IgM Not Detected Not Detected Jose [facility] LYME Specimen Type: SERUM 22, [facility] SEROLOGY Comment: The re sults are supportive evidence for the presence of antibodies and exposure to Borrelia burgdorferi. The LYME SEROLOGY PANEL was performed using the FDA-approved Demetrius YINA Borrelia burdor 2021 [facility] PANEL feri modified tw o-tier test system. This modified methodology uses a second EIA in place of a western immunoblot assay, which the FDA has determined is substantially equivalent to or better than stand 01:43 [facility] damaris two-tier aren ting using western blot. Supplemental testing with a second EIA meets CDC guidelines for Lyme disease testing. Performance characteristics of the panel [facility]. Results are considered [...] and local health departments, if applicable. The [place] State Form URL is: http://www.[place].gov/dph/dru/dph/infectious_diseases/pdf_forms_/ny76_sobk.pdf Ordering Provid er: DIMITRI SCRUGGS Report Released Date/Time: Feb 07, 2022 07:49 AM Reporting Lab: [facility] [place] [facility] [address] [facility] [address] Performing Lab: [facility] [place] [facility] [address] [facility] [address] TIER 1 LYME SCREENING EIA Presumptive Positive Negative LYME AB FINAL INTERPRETATION POSITIVE HH N egative TIER 2 LYME EIA,IgG Negative Negative TIER 2 LYME EIA,IgM POSITIVE HH Negative Feb 07, 2022 01:43 PM [facility] [place] FOLATE Specimen Type: SERUM HCS No comment enter ed. Ordering Provid er: DIMITRI SCRUGGS Report Released Date/Time: Feb 07, 2022 07:49 AM Reporting Lab: [facility] [place] [facility] [address] [facility] [address] Performing Lab: [facility] [place] [facility] [address] [facility] [address] FOLATE 12.99 >5.2 Feb 07, 2022 [facility] MALARIA/BABESIA EXAM Specimen T ype: BLOOD 01:43 PM [place] [facility] Comment: Due to the cyclical shed rates of these parasites, one negative specimen does not rule out the possibility of a parasitic infection. Obtain specimens at 6-hour intervals for 36 hours for a com prehensive exami nation. Test Performed by Betty Tracey, [employer] [facility], [address] [place] [address] Ronald Abdul M.D., Ph.D., Director of Laboratories , CLIA [id number] TEST PERFORMED AT: , Ordering Provid er: DIMITRI SCRUGGS Report Released Date/Time: Feb 07, 2022 01:29 PM Reporting Lab: [facility] [place] [facility] [address] [facility] [address] Performing Lab: [facility] [place] [facility] [address], [address] [place] [address] MALARIA/BABESIA EXAM Negative Negative Feb 07, 2022 [facility] C REACTIVE PROTEIN Specimen Typ e: SERUM 01:43 PM [facility] (CRP) Comment: Refere nce range changed on 01/07/11 [facility] reference ranges for ages >17 years: [...] 2022 01:18 PM Reporting Lab: [facility] [address] [facility] [address] Performing Lab: [facility] [address] [facility] [address] C REACTIVE PROTEIN (CRPH) 2.32 See eval. Feb 07, 2022 [facility] CORA SCREEN/TITER Specimen Type: SERUM 01:43 PM [facility] No comment enter ed. Ordering Provid er: DIMITRI SCRUGGS Report Released Date/Time: Feb 07, 2022 01:29 PM Reporting Lab: [facility] [place] [facility] [address] [facility] [address] Performing Lab: [facility] [address] [facility] [address] CORA SCREEN NEG NEG <1:40 Feb 07, 2022 01:43 [facility] VITAMIN B12 Specimen Typ e: SERUM PM [facility] No comment enter ed. Ordering Provid er: DIMITRI SCRUGGS Report Released Date/Time: Feb 07, 2022 07:49 AM Reporting Lab: [facility] [address] [facility] [address] Performing Lab: [facility] [address] [facility] [address] VITAMIN B12 593 200-900 Feb 07, 2022 [facility] SED RATE, AUTOMATED Specimen Ty pe: BLOOD 01:43 PM [facility] No comment enter ed. Ordering Provid er: DIMITRI SCRUGGS Report Released Date/Time: Feb 07, 2022 01:18 PM Reporting Lab: [facility] [address] [facility] [address] Performing Lab: [facility] [address] [address] SED RATE, AUTOMATED 9 0-15 Feb 07, 2022 [facility] URINALYSIS CLEAN Specimen Type: URINE 01:43 PM [facility] CATCH No comment enter ed. Ordering Provid er: DIMITRI SCRUGGS Report Released Date/Time: Feb 07, 2022 07:50 AM Reporting Lab: [facility] [address] [facility] [address] Performing Lab: [facility] [address] [address] UA COLOR Yellow Yellow UA APPEARANCE Clear Clear UA GLUCOSE Negative Negative UA KETONES Negative Neg UA BLOOD Negative Neg UA PROTEIN Negative Neg UA NITRITE Negative Neg UA BILIRUBIN Negative Neg UA SPECIFIC GRAVITY 1.017 1.016-1.02 2 UA pH 6.0 5.0-9.0 UA UROBILINOGEN <2.0 <2.0 UA LEUKOCYTE ESTERASE Negative Neg Feb 07, 2022 [facility] CBC AND DIFF Specimen Type: BLOOD 01:43 PM [facility] (AUTO) No comment enter ed. Ordering Provid er: DIMITRI SCRUGGS Report Released Date/Time: Feb 07, 2022 07:49 AM Reporting Lab: [facility] [place] [facility] [address] [facility] [address] Performing Lab: [place] [facility] [place] [facility] [address] [facility] [address] WBC 6.22 4.50-11.00 RBC 5.24 4.23-5.66 HGB 15.7 12.8-17 HCT 44.8 39.2-50.4 MCV 85.5 82-99 MCHC 35.0 30.8-35.1 PLT 390 H 140-360 RDW-CV 11.4 L 12.0-16.0 Benton, Abs 0.46 0.30-1.10 MCH 30.0 26.2-32.6 Neut % 60.2 Lymph % 30.1 Benton % 7.4 Eos % 1.1 Baso % 0.6 Neut, Abs 3.74 2.20-7.60 Lymph, Abs 1.87 1.00-3.20 Eos, Abs 0.07 0.03-0.44 Baso, Abs 0.04 0.01-0.13 Immature Gran % 0.6 Immature Gran, Abs 0.04 0.00-0.06 Jan 30, 2022 11:25 [facility] THYROID TOTAL T4 Specimen Ty pe: SERUM AM [place] [facility] No comment enter ed. Ordering Provid er: YINA HAGAN Report Released Date/Time: Jan 30, 2022 10:32 AM Reporting Lab: [facility] [place] [facility] [address] [facility] [address] Performing Lab: [facility] [place] [facility] [address] [facility] [address] THYROID TOTAL T4 8.86 4.5-12.0 Jan 30, 2022 [facility] TESTOSTERONE, TOTAL Specimen Ty pe: SERUM 11:25 AM [place] [facility] No comment enter ed. Ordering Provid er: YINA HAGAN Report Released Date/Time: Jan 30, 2022 10:32 AM Reporting Lab: [facility] [place] [facility] [address] [facility] [address] Performing Lab: [facility] [place] [facility] [address] [facility] [address] TESTOSTERONE, TOTAL 525.91 220.00-892 .00 Jan 30, 2022 11:25 [facility] LIVER FUNCTION Specimen Typ e: SERUM AM [place] [facility] No comment enter ed. Ordering Provid er: YINA HAGAN Report Released Date/Time: Jan 30, 2022 10:32 AM Reporting Lab: [facility] [place] [facility] [address] [facility] [address] Performing Lab: [facility] [place] [facility] [address] [facility] [address] PROTEIN,TOTAL 7.2 6.0-8.3 ALBUMIN 4.0 3.5-5.0 ALKALINE PHOSPHATASE 57 40-150 AST 37 H 5-34 ALT 36 <6-55 BILIRUBIN, TOTAL 0.9 0.2-1.2 Jan 30, 2022 11:25 [facility] LIPID PANEL FASTING Specimen Type: SERUM AM [place] [facility] No comment enter ed. Ordering Provid er: YINA HAGAN Report Released Date/Time: Jan 30, 2022 10:32 AM Reporting Lab: [facility] [place] [facility] [address] [facility] [address] Performing Lab: [facility] [place] [facility] [address] [facility] [address] CHOLESTEROL 167 <7-199 TRIGLYCERIDE 112 0-150 LDL calculated 108 0-129 CHOL/HDL 4.5 HDL CHOLESTEROL 37 L 40-60 Jan 30, 2022 11:25 [facility] CBC AND DIFF Specimen Typ e: BLOOD AM [place] [facility] (AUTO) No comment enter ed. Ordering Provid er: YINA HAGAN Report Released Date/Time: Jan 30, 2022 10:32 AM Reporting Lab: [facility] [place] [facility] [address] [facility] [address] Performing Lab: [facility] [place] [facility] [address] [facility] [address] WBC 2.65 L 4.50-11.00 RBC 5.29 4.23-5.66 [...] Jan 30, 2022 10:32 AM Reporting Lab: [facility] [place] [facility] [address] [facility] [address] Performing Lab: [facility] [place] [facility] [address] [facility] [address] UREA NITROGEN 13 7-25 GLUCOSE 102 H 65-100 SODIUM 135 135-145 POTASSIUM 4.4 3.5-5.0 CHLORIDE 100 100-110 CO2 27 20-30 CREATININE, Serum 1.35 0.50-1.40 eGFR(CKD-EPI 2020) 72 >60 Jan 30, 2022 [facility] HEMOGLOBIN [...] Jan 30, 2022 10:32 AM Reporting Lab: [facility] [place] [facility] [address] [facility] [address] Performing Lab: [facility] [place] [facility] [address] [facility] [address] HEMOGLOBIN A1C 4.6 4.0-5.6 Jan 30, 2022 11:25 AM [facility] [place] TSH Specimen Type: SERUM [facility] No comment enter ed. Ordering Provid er: YINA HAGAN Report Released Date/Time: Jan 30, 2022 10:32 AM Reporting Lab: [place] [facility] [facility] [address] [facility] [address] Performing Lab: [facility] [place] [facility] [address] [facility] [address] TSH 0.82 0.35-5.00 Jan 30, 2022 11:25 [facility] [place] VITAMIN B12 S pecimen Type: SERUM AM HCS No comment enter ed. Ordering Provid er: YINA HAGAN Report Released Date/Time: Jan 30, 2022 10:32 AM Reporting Lab: [facility] [place] [facility] [address] [facility] [address] Performing Lab: [facility] [place] [facility] [address] [facility] [address] VITAMIN B12 354 200-900 Jan 30, 2022 11:25 [facility] VITAMIN D (25-[place]) Specimen T ype: SERUM AM [facility] No comment enter ed. Ordering Provid er: YINA HAGAN Report Released Date/Time: Jan 30, 2022 10:32 AM Reporting Lab: [facility] [place] [facility] [address] [facility] [address] Performing Lab: [facility] [place] [facility] [address] [facility] [address] VITAMIN D (25-[place]) 38 20-50 Jan 30, 2022 [facility] MICROSCOPIC AUTOMATED, Specimen Type: URINE 11:25 AM [facility] URINE No comment enter ed. Ordering Provid er: YINA HAGAN Report Released Date/Time: Jan 30, 2022 10:32 AM Reporting Lab: [facility] [place] [facility] [address] [facility] [address] Performing Lab: [facility] [place] [facility] [address] [facility] [address] UA WBC 0-5 0-5 UA MUCUS FEW Trace UA RBC 3-5 0-3 Jan 30, 2022 [facility] DIFFERENTIAL, MANUAL Specimen T ype: BLOOD 11:25 AM [facility] Comment: Giant platelets present. SENT FOR PATHOLOGY REVIEW Ordering Provid er: YINA HAGAN Report Released Date/Time: Jan 30, 2022 10:32 AM Reporting Lab: [facility] [place] [facility] [address] [facility] [address] Performing Lab: [facility] [place] [facility] [address] [facility] [address] SEGS 47 L 48-78 BANDS 5 0-10 LYMPHS 16 10-55 MONOS 23 H 2-12 VARIANT LYMPHOCYTES 5 0-6 OTHER/CELL 4 Jan 30, 2022 11:25 [facility] [place] URINALYSIS S pecimen Type: URINE AM HCS No comment enter ed. Ordering Provid er: BENTLEYYINA Report Released Date/Time: Jan 30, 2022 10:32 AM Reporting Lab: [facility] [place] [facility] [address] [facility] [address] Performing Lab: [facility] [address] [facility] [address] UA COLOR Yellow Yellow UA APPEARANCE Clear Clear UA GLUCOSE Negative Negative UA KETONES Negative Neg UA BLOOD Moderate Neg UA PROTEIN 30 Neg UA NITRITE Negative Neg UA BILIRUBIN Negative Neg UA SPECIFIC GRAVITY 1.027 H 1.016-1.02 2 UA pH 5.0 5.0-9.0 UA UROBILINOGEN <2.0 <2.0 UA LEUKOCYTE ESTERASE Negative Neg Jan [facility] LYME Specimen Type: SERUM 14, [facility] SEROLOGY Comment: The [facility] SEROLOGY PANEL was performed using the [...] second EIA meets CDC guidelines for 11:25 [facility] Lyme disease aren ting. Performance characteristics of the panel were validated at the [place] [facility]. Results are considered [...] and local health departments, if applicable. The [place] State Form U RL is: http://www.[place].gov/dph/dru/dph/infectious_diseases/pdf_forms_/wy85_egna.pdf Ordering Provid er: YINA HAGAN Report Released Date/Time: Feb 03, 2022 12:51 PM Reporting Lab: [facility] [place] [facility] [address] [facility] [address] Performing Lab: [facility] [place] [facility] [address] [facility] [address] TIER 1 LYME SCREENING EIA Negative Nega tive LYME AB FINAL INTERPRETATION Negative N egative Jan 30, 2022 11:25 [facility]) Specimen Type: BLOOD AM [place] [facility] Comment: SEE [id number] Ordering Provid er: YINA HAGAN Report Released Date/Time: Jan 30, 2022 12:51 PM Reporting Lab: [facility] [place] [facility] [address] [facility] [address] Performing Lab: [place] [facility] [place] [facility] [address] [facility] [address] SMEAR CONSULT ([facility]) comment Vital Signs: All taken on the encounter date This section contains inpatient and outpatient Vital Signs collected on the date of the Encounter. Date/Time Temperature Pulse Blood Respiratory SP02 Pain Height Weight Aleksandr dy Source Pressure Rate Mass Index Feb 04 114/65 98 % [place] 2021 02:43 /min mm[Hg] [facility] PM [facility] [place] [facility] Social History: Smoking Status (Most current) and Tobacco Use (All prior to encounter date) This section includes the most current, and the historical, smoking and tobacco-related health factors from the [place] facility where the Encounter took place.Current Smoking Status This section includes the most current smoking, or tobacco-related health factor, from the [place] facility where the Encounter took place. Date/Time Current Smoking Status Comment Facility May 23, 2021 02:30 PM [facility]-TOBACCO NEVER USED [facility] [place] [facility] Encounter Notes: All associated encounter notes This section contains the clinical notes associated to the Encounter. Date/Time Encounter Note(s) Provider Source Feb 04, 2022 12:30 PM [facility] COMMUNITY CARE COORDINATION PLAN STANDARD TITLE: NONVA NOTE DATE OF NOTE: FEB 04, 2022@12:30 ENTRY DATE: FEB 04, 2022@12:30:27 AUTHOR: MICHELLE CHAPIN EXP COSIGNER: URGENCY: STATUS: COMPLETED self-presented to community emergency fa cility Emergency Notification Intake Date Presenting to the Facility: Jan [facility] Name: Hospital: [place], [place] Address: City: [place] State: Zip Code: Phone : Chief complaint: [id number] - Unspecified abdominal pa in Primary Diagnosis: Patient Admitted? No Community Facility Point of Contact: Name: Gail Phone: info from ECRA /ivelisse/ MICHELLE BLANDON Signed: 02/04/2022 12:31 Receipt Acknowledged By: * AWAITING SIGNATURE * NIRMAL SELBY * AWAITING SIGNATURE * NEDRA RIZZO * AWAITING SIGNATURE * DIMITRI SCRUGGS * AWAITING SIGNATURE * TAE CASTILLO
--- OUTSIDE RECORDS SUMMARY | 2022-04-18 10:19 | XMS_ITS | Encounter Summary ---
:1990 Author Organization Department of [facility] rs Address [address] [place] [address] Support Name Relationship Address Phone TETE TRAN Unavailable [address] [place] [address] THOMAS MONTOYA Unavailable [address] [place] [address] Insurance Providers: All historical and current Section Date Range: From patient's date of to the date document was created.This section includes the names of all active insurance providers for the patient. Insurance Type of Plan Start of End of Group Member Insurance Policy P atient's Provider Coverage Name Policy Policy Number ID Provider's Ojeda's Relationship Coverage Coverage Telephone Name to Policy Number Ojeda [facility] Aug 03, [id number] ROSINA CALLAHAN ASHLEE GIMENEZ 2019 [id number] STEPHANIE JOHNSON [facility] Selected Encounter This section includes the information on record at [place] for the Encounter. Date/Time Encounter Type Encounter Description Reason Provider Source Feb 10, 2022 10:19 Outpatient Encounter ADMIN PAT ACTIVTIES AM (ROHANCT) IHE Encounter Template Text not used by [place] Plan of Treatment: Future Appointments (+ 6 months) and Future Tests (+/- 45 days) The Plan of Treatment section includes future care activities for the patient from all [place] treatmentfacilities. This section includes future appointments and future orders which are active, pending orscheduled.Future Appointments This section includes appointments that were scheduled to occur 6 months from the date of the Encounter, up to a maximum of 20 appointments. The data comes from all [place] treatment facilities. Appointment Date/Time Appointment Type Appointment Facili ty Name Feb 12, 2022 09:00 AM AMBULATORY - PSYCHIATRY [facility] Feb 14, 2022 12:00 PM AMBULATORY - [...] - PSYCHIATRY [facility] [place] [facility] Apr 17, 2022 01:00 PM AMBULATORY - NONE [facility] [place] Apr 25, 2022 09:00 AM AMBULATORY - [facility] May 09, 2022 09:00 AM AMBULATORY [facility] May 23, 2022 09:00 AM AMBULATORY - [facility]RY [facility] Jul 17, 2022 08:30 AM AMBULATORY - NONE [facility] [facility] Lab Results: [...] Interpretation Reference Range Comment Feb 07, 2022 [facility] BRUCELLA ANTIBODY, Specimen Typ e: SERUM 01:43 PM [facility] AGGLUTINATION Comment: REFERE NCE RANGE: <1:80 The [...] performance characteri stics have been determined by [employer]. It has not been cleared or approved by FDA. This assay has been validated pursuant to the CLIA regulations and is used for clinical purposes. Test perfor med by [facility] [address] [place] [address] Visual Manager: Alejandrina Quick MD,PHD,[place] Test performed at [place], [place]. Ordering Provid er: DIMITRI SCRUGGS Report Released Date/Time: Feb 07, 2022 01:27 PM Reporting Lab: [facility] [address] [facility] [address] Performing Lab: [facility] [address], [address] [facility] [address] BRUCELLA ANTIBODY, AGGLUTINATION <1:80 Feb 07, 2022 [facility] BABESIA MICROTI Specimen Type: SERUM 01:43 PM [facility] ANTIBODIES (IgG, Comment: REFER ENCE RANGE: <1:64 [...] analytical performance characteristics have been determined by [place]. It has not been cleared or approved by the U.S. Food and Drug A dministration. T his assay has been validated pursuant to the CLIA regulations and is used for clinical purposes. Test Performed by [facility], [employer] [place], [address] [facility] [place], [place] Ronald Abdul M.D., Ph.D., Director of Laboratories , CLIA [id number] TEST PERFORMED AT: , Ordering Provid er: DIMITRI SCRUGGS Report Released Date/Time: Feb 07, 2022 01:29 PM Reporting Lab: [facility] [address] [facility] [place] [address] Performing Lab: [facility] [address] [place], [address] [facility] [address] Babesia microti IgG <1:64 SEE BELOW Babesia microti IgM <1:20 SEE BELOW BABESIA MICROTI AB INTER SEE NOTE Feb 07, 2022 [facility] ANAPLASMA AND Specimen Type: SERUM 01:43 PM [facility] EHRLICHIA AB PANEL Comment: REF ERENCE RANGE: [...] performance c haracteristics have been determined by [place]. It has not been cleared or [...] analytical performance characteristics have been determined by [place]. It has not been cleared or approved by the U.S. Food and Drug Administration. This assay has been validated pursuant to the CLIA regulations and is used for clinical purposes. Test Performed by [facility] [employer], [address] [place], [place] Ronald Abdul M.D., Ph.D., Director of Laboratories , CLIA [id number] TEST PERFORMED AT: , Ordering Provid er: DIMITRI SCRUGSG Report Released Date/Time: Feb 07, 2022 01:33 PM Reporting Lab: [facility] [place] [address] [facility] [address] Performing Lab: [facility] [address], [address] [place] [address] E. chaffeensis Ab IgG <1:64 SEE BELO W E. chaffeensis Ab IgM <1:20 SEE BELO W A.phagocytophilum Ab IgG <1:64 SEE B ELOW A.phagocytophilum Ab IgM <1:20 SEE B ELOW EHRLICHIA CHAFFEENSIS AB INTER SEE NOTE A. phagocytophilum inter SEE NOTE Feb 07, 2022 [facility] BABESIA MICROTI, Specimen Type: BLOOD 01:43 PM [facility] DNA PCR(WHV) Comment: The an alytical performance characteristics of this test have been determined by [facility]. It has not been cleared by the FDA. Ordering Provid er: DIMITRI SCRUGGS Report Released Date/Time: Feb 07, 2022 01:29 PM Reporting Lab: [facility] [address] [facility] [address] Performing Lab: [facility] [address] [facility] [address] BABESIA MICROTI, DNA PCR(WHV) Not Detected Not Detected Feb 07, 2022 [facility] RICKETTSIA ANTIBODY Specimen Ty pe: SERUM 01:43 PM [facility] PANEL (Q) Comment: Test P erformed by Betty Tracey, [employer] [place]ali[place]ah [place], [address] [place], [place] Ronald Abdul M.D., Ph.D., Director of Laboratories , CLIA [id number] TEST PERFORMED AT: , Ordering Provid er: DIMITRI SCRUGGS Report Released Date/Time: Feb 07, 2022 01:33 PM Reporting Lab: [facility] [place] [facility] [address] [facility] [place] [address] Performing Lab: [facility] [place] [facility] [address], [address] [place] [address] RMSF IgG Not Detected Not Detected RMSF IgM Not Detected Not Detected R. typhi IgM Not Detected Not Detected Jan [facility] LYME Specimen Type: SERUM 22, [facility] SEROLOGY Comment: The re sults are supportive evidence for the presence of antibodies and exposure to Borrelia burgdorferi. The LYME SEROLOGY PANEL was performed using the FDA-approved Demetrius YINA Borrelia burdor 2021 [facility] PANEL feri modified tw o-tier test system. This modified methodology uses a second EIA in place of a western immunoblot assay, which the FDA has determined is substantially equivalent to or better than stand 01:43 [facility] damaris two-tier aren ting using western blot. Supplemental testing with a second EIA meets CDC guidelines for Lyme disease testing. Performance characteristics of the panel were validated at the [facility] lar Diagnostics Laboratory. Results are considered [...] and local health departments, if applicable. The [place] State Form URL is: http://www.[place].gov/dp/dru/dp/infectious_diseases/pdf_forms_/ya23_nkak.pdf Ordering Provid er: DIMITRI SCRUGGS Report Released Date/Time: Feb 07, 2022 07:49 AM Reporting Lab: [facility] [place] [facility] [address] [facility] [address] Performing Lab: [facility] [place] [facility] [address] [facility] [address] TIER 1 LYME SCREENING EIA Presumptive Positive Negative LYME AB FINAL INTERPRETATION POSITIVE HH N egative TIER 2 LYME EIA,IgG Negative Negative TIER 2 LYME EIA,IgM POSITIVE HH Negative Feb 07, 2022 01:43 PM [facility] [place] FOLATE Specimen Type: SERUM HCS No comment enter ed. Ordering Provid er: DIMITRI SCRUGGS Report Released Date/Time: Feb 07, 2022 07:49 AM Reporting Lab: [facility] [place] [facility] [address] [facility] [address] Performing Lab: [facility] [place] [facility] [address] [facility] [address] FOLATE 12.99 >5.2 Feb 07, 2022 [facility] C REACTIVE PROTEIN Specimen Typ e: SERUM 01:43 PM [facility] ([facility]) Comment: Refere nce range changed on 01/07/11 [facility] reference ranges for ages >17 years: [...] Feb 07, 2022 01:18 PM Reporting Lab: [facility] [place] [facility] [address] [facility] [address] Performing Lab: [facility] [place] [facility] [address] [facility] [address] C REACTIVE PROTEIN (CRPH) 2.32 See eval. Feb 07, 2022 [facility] MALARIA/BABESIA EXAM Specimen T ype: BLOOD 01:43 PM [facility] Comment: Due to the cyclical shed rates of these parasites, one negative specimen does not rule out the possibility of a parasitic infection. Obtain specimens at 6-hour intervals for 36 hours for a com prehensive exami nation. Test Performed by [place], [employer] [facility], [address] [place] [address] Ronald Abdul M.D., Ph.D., Director of Laboratories , [facility] [id number] TEST PERFORMED AT: , Ordering Provid er: DIMITRI SCRUGGS Report Released Date/Time: Feb 07, 2022 01:29 PM Reporting Lab: [facility] [address] [facility] [address] Performing Lab: [facility] [address] [facility] [address], [address] [facility] [address] MALARIA/BABESIA EXAM Negative Negative Feb 07, 2022 [facility] CORA SCREEN/TITER Specimen Type: SERUM 01:43 PM [facility] No comment enter ed. Ordering Provid er: DIMITRI SCRUGGS Report Released Date/Time: Feb 07, 2022 01:29 PM Reporting Lab: [facility] [place] [facility] [address] [facility] [address] Performing Lab: [facility] [place] [facility] [address] [facility] [address] CORA SCREEN NEG NEG <1:40 Feb 07, 2022 01:43 [facility] VITAMIN B12 Specimen Typ e: SERUM PM [facility] No comment enter ed. Ordering Provid er: DIMITRI SCRUGGS Report Released Date/Time: Feb 07, 2022 07:49 AM Reporting Lab: [facility] [address] [facility] [address] Performing Lab: [facility] [address] [facility] [address] VITAMIN B12 593 200-900 Feb 07, 2022 [facility] SED RATE, AUTOMATED Specimen Ty pe: BLOOD 01:43 PM [facility] No comment enter ed. Ordering Provid er: DIMITRI SCRUGGS Report Released Date/Time: Feb 07, 2022 01:18 PM Reporting Lab: [facility] [address] [facility] [address] Performing Lab: [facility] [address] [facility] [address] SED RATE, AUTOMATED 9 0-15 Feb 07, 2022 [facility] URINALYSIS CLEAN Specimen Type: URINE 01:43 PM [facility] CATCH No comment enter ed. Ordering Provid er: DIMITRI SCRUGGS Report Released Date/Time: Feb 07, 2022 07:50 AM Reporting Lab: [address] [address] Performing Lab: [facility] [address] [address] UA COLOR Yellow Yellow UA APPEARANCE Clear Clear UA GLUCOSE Negative Negative UA KETONES Negative Neg UA BLOOD Negative Neg UA PROTEIN Negative Neg UA NITRITE Negative Neg UA BILIRUBIN Negative Neg UA SPECIFIC GRAVITY 1.017 1.016-1.02 2 UA pH 6.0 5.0-9.0 UA UROBILINOGEN <2.0 <2.0 UA LEUKOCYTE ESTERASE Negative Neg Feb 07, 2022 [facility] CBC AND DIFF Specimen Type: BLOOD 01:43 PM [facility] (AUTO) No comment enter ed. Ordering Provid er: DIMITRI SCRUGGS Report Released Date/Time: Feb 07, 2022 07:49 AM Reporting Lab: [facility] [address] [facility] [address] Performing Lab: [facility] [address] [address] WBC 6.22 4.50-11.00 RBC 5.24 4.23-5.66 HGB 15.7 12.8-17 HCT 44.8 39.2-50.4 MCV 85.5 82-99 MCHC 35.0 30.8-35.1 PLT 390 H 140-360 RDW-CV 11.4 L 12.0-16.0 Mingo, Abs 0.46 0.30-1.10 MCH 30.0 26.2-32.6 Neut % 60.2 Lymph % 30.1 Mingo % 7.4 Eos % 1.1 Baso % 0.6 Neut, Abs 3.74 2.20-7.60 Lymph, Abs 1.87 1.00-3.20 Eos, Abs 0.07 0.03-0.44 Baso, Abs 0.04 0.01-0.13 Immature Gran % 0.6 Immature Gran, Abs 0.04 0.00-0.06 Jan 30, 2022 11:25 [facility] THYROID TOTAL T4 Specimen Ty pe: SERUM AM [place] [facility] No comment enter ed. Ordering Provid er: YINA HAGAN Report Released Date/Time: Jan 30, 2022 10:32 AM Reporting Lab: [facility] [place] [facility] [address] [facility] [address] Performing Lab: [facility] [place] [facility] [address] [facility] [address] THYROID TOTAL T4 8.86 4.5-12.0 Jan 30, 2022 [facility] TESTOSTERONE, TOTAL Specimen Ty pe: SERUM 11:25 AM [place] [facility] No comment enter ed. Ordering Provid er: YINA HAGAN Report Released Date/Time: Jan 30, 2022 10:32 AM Reporting Lab: [facility] [place] [facility] [address] [facility] [address] Performing Lab: [facility] [place] [facility] [address] [facility] [address] TESTOSTERONE, TOTAL 525.91 220.00-892 .00 Jan 30, 2022 11:25 [facility] LIVER FUNCTION Specimen Typ e: SERUM AM [place] [facility] No comment enter ed. Ordering Provid er: YINA HAGAN Report Released Date/Time: Jan 30, 2022 10:32 AM Reporting Lab: [facility] [place] [facility] [address] [place] [address] Performing Lab: [facility] [address] [facility] [address] PROTEIN,TOTAL 7.2 6.0-8.3 ALBUMIN 4.0 3.5-5.0 ALKALINE PHOSPHATASE 57 40-150 AST 37 H 5-34 ALT 36 <6-55 BILIRUBIN, TOTAL 0.9 0.2-1.2 Jan 30, 2022 11:25 [facility] CBC AND DIFF Specimen Typ e: BLOOD AM [facility] (AUTO) No comment enter ed. Ordering Provid er: YINA HAGAN Report Released Date/Time: Jan 30, 2022 10:32 AM Reporting Lab: [facility] [address] [facility] [address] Performing Lab: [facility] [address] [facility] [address] WBC 2.65 L 4.50-11.00 RBC 5.29 4.23-5.66 HGB 15.7 12.8-17 HCT 46.2 39.2-50.4 MCV 87.3 82-99 MCHC 34.0 30.8-35.1 PLT 152 140-360 RDW-CV 11.5 L 12.0-16.0 MCH 29.7 26.2-32.6 Jan 30, 2022 11:25 [facility] LIPID PANEL FASTING Specimen Type: SERUM AM [facility] No comment enter ed. Ordering Provid er: YINA HAGAN Report Released Date/Time: Jan 30, 2022 10:32 AM Reporting Lab: [facility] [address] [facility] [address] Performing Lab: [facility] [address] [facility] [address] CHOLESTEROL 167 <7-199 TRIGLYCERIDE 112 0-150 LDL calculated 108 0-129 CHOL/HDL 4.5 HDL CHOLESTEROL 37 L 40-60 Jan 30, 2022 [facility] HEMOGLOBIN A1C Specimen Type: BLOOD 11:25 AM [place] [facility] PANEL Comment: Values obtained from A1C measurements [...] [facility]L [facility] [place] [facility] [address] [facility] [address] Performing Lab: [facility] [place] [facility] [address] [facility] [address] HEMOGLOBIN A1C 4.6 4.0-5.6 Jan 30, 2022 11:25 AM [facility] [place] TSH Specimen Type: SERUM HCS No comment enter ed. Ordering Provid er: YINA HAGAN Report Released Date/Time: Jan 30, 2022 10:32 AM Reporting Lab: [facility] [place] [facility] [address] [facility] [address] Performing Lab: [facility] [place] [facility] [address] [facility] [address] TSH 0.82 0.35-5.00 Jan 30, 2022 11:25 [facility] [place] VITAMIN B12 S pecimen Type: SERUM AM HCS No comment enter ed. Ordering Provid er: YINA HAGAN Report Released Date/Time: Jan 30, 2022 10:32 AM Reporting Lab: [facility] [place] [facility] [address] [facility] [address] Performing Lab: [facility] [place] [facility] [address] [facility] [address] VITAMIN B12 354 200-900 Jan 30, 2022 11:25 [facility] VITAMIN D (25-OH) Specimen T ype: SERUM AM [place] [facility] No comment enter ed. Ordering Provid er: YINA HAGAN Report Released Date/Time: Jan 30, 2022 10:32 AM Reporting Lab: [facility] [place] [facility] [address] [facility] [address] Performing Lab: [facility] [place] [facility] [address] [facility] [address] VITAMIN D (25-[place]) 38 20-50 Jan 30, 2022 [facility] MICROSCOPIC AUTOMATED, Specimen Type: URINE 11:25 AM [facility] URINE No comment enter ed. Ordering Provid er: YINA HAGAN Report Released Date/Time: Jan 30, 2022 10:32 AM Reporting Lab: [facility] [place] [facility] [address] [facility] [address] Performing Lab: [facility] [place] [facility] [address] [facility] [address] UA WBC 0-5 0-5 UA MUCUS FEW Trace UA RBC 3-5 0-3 Jan 30, 2022 [facility] BASIC METABOLIC PANEL Specimen Type: SERUM 11:25 AM [place] [facility] (fasting) No comment enter ed. Ordering Provid er: YINA HAGAN Report Released Date/Time: Jan 30, 2022 10:32 AM Reporting Lab: [facility] [place] [facility] [address] [facility] [address] Performing Lab: [facility] [place] [facility] [address] [facility] [address] UREA NITROGEN 13 7-25 GLUCOSE 102 H 65-100 SODIUM 135 135-145 POTASSIUM 4.4 3.5-5.0 CHLORIDE 100 100-110 CO2 27 20-30 CREATININE, Serum 1.35 0.50-1.40 eGFR(CKD-EPI 2020) 72 >60 Jan 30, 2022 11:25 [facility] [place] URINALYSIS S pecimen Type: URINE AM HCS No comment enter ed. Ordering Provid er: YINA HAGAN Report Released Date/Time: Jan 30, 2022 10:32 AM Reporting Lab: [facility] [place] [facility] [address] [facility] [address] Performing Lab: [facility] [place] [facility] [address] [facility] [address] UA COLOR Yellow Yellow UA APPEARANCE Clear Clear UA GLUCOSE Negative Negative UA KETONES Negative Neg UA BLOOD Moderate Neg UA PROTEIN 30 Neg UA NITRITE Negative Neg UA BILIRUBIN Negative Neg UA SPECIFIC GRAVITY 1.027 H 1.016-1.02 2 UA pH 5.0 5.0-9.0 UA UROBILINOGEN <2.0 <2.0 UA LEUKOCYTE ESTERASE Negative Neg Jan 30, 2022 [facility] WSN DIFFERENTIAL, MANUAL Specimen T ype: BLOOD 11:25 AM [facility] Comment: Giant platelets present. SENT FOR PATHOLOGY REVIEW Ordering Provid er: BENTLEYYINA Report Released Date/Time: Jan 30, 2022 10:32 AM Reporting Lab: [facility] [address] [facility] [address] Performing Lab: [facility] [address] [facility] [address] SEGS 47 L 48-78 BANDS 5 0-10 LYMPHS 16 10-55 MONOS 23 H 2-12 VARIANT LYMPHOCYTES 5 0-6 OTHER/CELL 4 Jan [facility] LYME Specimen Type: SERUM 14, [facility] SEROLOGY Comment: The [facility] SEROLOGY PANEL was performed using the [...] second EIA meets CDC guidelines for 11:25 HCS Lyme disease aren ting. Performance characteristics of the panel were validated at the [place] [facility]. Results are considered [...] and local health departments, if applicable. The [place] State Form U RL is: http://www.[place].gov/dp/dru/dp/infectious_diseases/pdf_forms_/ko54_audb.pdf Ordering Provid er: YINA HAGAN Report Released Date/Time: Feb 03, 2022 12:51 PM Reporting Lab: [facility] [place] [facility] [address] [facility] [address] Performing Lab: [facility] [place] [facility] [address] [facility] [address] TIER 1 LYME SCREENING EIA Negative Nega tive LYME AB FINAL INTERPRETATION Negative N egative Jan 30, 2022 11:25 [facility] SMEAR CONSULT ([facility]) Specimen Type: BLOOD AM [place] [facility] Comment: SEE [id number] Ordering Provid er: YINA HAGAN Report Released Date/Time: Jan 30, 2022 12:51 PM Reporting Lab: [facility] [place] [facility] [address] [facility] [address] Performing Lab: [facility] [place] [facility] [address] [facility] [address] SMEAR CONSULT ([facility]) comment Social History: Smoking Status (Most current) and Tobacco Use (All prior to encounter date) This section includes the most current, and the historical, smoking and tobacco-related health factors from the [place] facility where the Encounter took place.Current Smoking Status This section includes the most current smoking, or tobacco-related health factor, from the [place] facility where the Encounter took place. Date/Time Current Smoking Status Comment Facility May 23, 2021 02:30 PM VA-TOBACCO NEVER USED [facility] [place] [facility] Encounter Notes: All associated encounter notes This section contains the clinical notes associated to the Encounter. Date/Time Encounter Note(s) Provider Source Feb 10, 2022 10:19 ADMINISTRATIVE NOTE: [facility] LOCAL TITLE: CCC: SCHEDULING ADMINISTRATION [facility] [place] [place] [facility] STANDARD TITLE: ADMINISTRATIVE NOTE DATE OF NOTE: FEB 10, 2022@10:19:38 ENTRY DATE: FEB 10, 2022@10:21:15 AUTHOR: MEG ALDRICH DEEPA EXP COSIGNER: URGENCY: STATUS: COMPLETED CCC: SCHEDULING ADMINISTRATION Has ADDENDA Type of call: CLINICAL INFORMATION/EDUCATION. PCMM Provider Info: [facility] [place] [facility] ([id number]) PACT: NO PACT 7 (Focus: Primary Care Only) Primary Care Provider: DIMITRI SCRUGGS PH ONE:[phone] Portable Router Operator: TAE CASTILLO PHONE:[phone] Clinical Associate: JODIE FRANCISCO PHONE:[phone] Financial Service Representative: RYLEE GREER PACT Clinical Pharmacist: SUSSY SANTAMARIA PHONE:[phone] Clinical POC: Portable Router Operator TAE CASTILLO PHONE:[phone] Administrative POC: Financial Service Representative RYLEE GREER MH: [facility] TEAM (TC) Counter Professional ANIVAL DEL ANGEL PHON E:[phone] *PATIENT called in for GEORGE CALLAHAN ([phone]) . Contact Caller Response: ADM CALL RESOLVED Caller Area: [facility] Comments: called regarding coming in to [facility] today to obtain lab results. Please call to make sure results are in. Author: MEG ALDRICH Evaluation/Management Code: HC PRO PHONE CALL 5- 10 MIN ([phone]). Starting at: 02/10/2022 @ 10:19:38 AM Ending at: 02/10/2022 @ 10:20:37 AM Length: 0 minutes. Chief Complaint: Not applicable to call. Class Code: Other specified counseling. /ivelisse/ MEG ALDRICH Signed: 02/10/2022 10:21 Receipt Acknowledged By: 02/10/2022 12:02 /ivelisse/ Tae Castillo MSN RN C NL Primary Care RN * AWAITING SIGNATURE * JODIE FRANCISCO 02/10/2022 ADDENDUM STATUS: COMPLETED Vet will come in this afternoon for SC /ivelisse/ Tae HELM RN CNL Primary Care RN Signed: 02/10/2022 12:03
--- OUTSIDE RECORDS SUMMARY | 2022-04-18 10:19 | XMS_ITS | Encounter Summary ---
:1990 Author Organization Department of [facility] rs Address [address] [place] [address] Support Name Relationship Address Phone TETE TRAN Unavailable [address] [facility] [phone] [address] [place] [address] THOMAS MONTOYA Unavailable [address] [place] [address] Insurance Providers: All historical and current Section Date Range: From patient's date of to the date document was created.This section includes the names of all active insurance providers for the patient. Insurance Type of Plan Start of End of Group Member Insurance Policy P atient's Provider Coverage Name Policy Policy Number ID Provider's Ojeda's Relationship Coverage Coverage Telephone Name to Policy Number Ojeda [facility] Aug 03, [id number] [id number] ROSA MARIA CowanAK ASHLEE IGMENEZ 2019 [id number] STEPHANIE JOHNSON [facility] Selected Encounter This section includes the information on record at MD for the Encounter. Date/Time Encounter Type Encounter Reason Provider Source Description Feb 07, 2022 OFFICE O/P EST PRIMARY ICD-10-CM R21 HEATHER WYLIE 01:00 PM LOW 20-29 MIN CARE/MEDICINE Rash and other AM J nonspecific skin eruption with Provider Comments: Pruritic rash (SNOMED CT [id number]) IHE Encounter Template Text not used by [facility] Assessments - Encounter Diagnoses This section includes the primary and secondary diagnoses documented for the Encounter. Date/Time Primary/Secondary Diagnosis Name Provider Source Diagnosis Feb 07, 2022 PRIMARY Rash and other HEATHER WYLIE MD CNTRL WS TRN 02:04 PM nonspecific skin AM J [facility] eruption Plan of Treatment: Future Appointments (+ 6 months) and Future Tests (+/- 45 days) The Plan of Treatment section includes future care activities for the patient from all [facility]. This section includes future appointments and future orders which are active, pending orscheduled.Future Appointments This section includes appointments that were scheduled to occur 6 months from the date of the Encounter, up to a maximum of 20 appointments. The data comes from all MD treatment facilities. Appointment Date/Time Appointment Type Appointment Facili ty Name Feb 10, 2022 01:15 PM AMBULATORY - MEDICINE [facility] [place] [facility] Feb 10, 2022 01:45 PM AMBULATORY - MEDICINE [facility] [place] [facility] Feb 12, 2022 09:00 AM AMBULATORY - PSYCHIATRY MD [facility] [place] [facility] Feb 14, 2022 12:00 PM AMBULATORY - PSYCHIATRY MD [facility] [place] [facility] Feb 25, 2022 01:00 PM AMBULATORY - PSYCHIATRY MD [facility] [place] [facility] Feb 27, 2022 02:00 PM AMBULATORY - PSYCHIATRY MD [facility] [place] [facility] Mar 17, 2022 03:00 PM AMBULATORY - PSYCHIATRY MD [facility] [place] [facility] Mar 28, 2022 09:00 AM AMBULATORY - PSYCHIATRY MD [facility] [place] [facility] Apr 17, 2022 01:00 PM AMBULATORY - NONE [facility] [place] [facility] Apr 25, 2022 09:00 AM AMBULATORY - PSYCHIATRY MD [facility] [place] [facility] May 09, 2022 09:00 AM AMBULATORY - PSYCHIATRY MD [facility] [place] [facility] May 23, 2022 09:00 AM AMBULATORY - PSYCHIATRY MD [facility] [place] [facility] Jul 17, 2022 08:30 AM AMBULATORY - NONE [facility] [place] [facility] Lab Results: +/- 30 days of [...] Interpretation Reference Range Comment Feb 07, 2022 MD CN[facility] BRUCELLA ANTIBODY, Specimen Typ e: [...] performance characteri stics have been determined by [employer]. It has not been cleared or approved by FDA. This assay has been validated pursuant to the CLIA regulations and is used for clinical purposes. Test perfor med by [employer] [facility] [address] [place] [address] Material Coordinator: Alejandrina Quick MD,PHD,[place]IR[place]IE Test performed at [facility] [place], [place]. Ordering Provid er: DIMITRI WYLIE Report Released Date/Time: Feb 07, 2022 01:27 PM Reporting Lab: [facility] [place] [facility] [address] [address] Performing Lab: [facility] [address] [facility] [address] BRUCELLA ANTIBODY, AGGLUTINATION <1:80 Feb 07, 2022 [facility] BABESIA MICROTI Specimen Type: SERUM 01:43 PM [place] [facility] ANTIBODIES (IgG, Comment: REFER ENCE RANGE: [...] analytical performance characteristics have been determined by [facility]. It has not been cleared or approved by the U.S. Food and Drug A dministration. T his assay has been validated pursuant to the CLIA regulations and is used for clinical purposes. Test Performed by [employer] [place], [employer] [place], [address] [address] [place], [place] Ronald Abdul M.D., Ph.D., Director of Laboratories , CLIA [id number] TEST PERFORMED AT: , Ordering Provid er: DIMITRI WYLIE Report Released Date/Time: Feb 07, 2022 01:29 PM Reporting Lab: [facility] [address] [address] Performing Lab: [facility] [address], [address] [facility] [address] Babesia microti IgG <1:64 SEE BELOW Babesia microti IgM <1:20 SEE BELOW BABESIA MICROTI AB INTER SEE NOTE Feb 07, 2022 [facility] ANAPLASMA AND Specimen Type: SERUM 01:43 PM [facility] EHRLICHIA AB PANEL Comment: REF ERENCE [...] performance c haracteristics have been determined by [facility]. It has not been cleared or [...] analytical performance characteristics have been determined by [facility] [place]. It has not been cleared or approved by the U.S. Food and Drug Administration. This assay has been validated pursuant to the CLIA regulations and is used for clinical purposes. Test Performed by [facility], [facility], [address] [place] [address] Ronald Abdul M.D., Ph.D., Director of Laboratories , CLIA [id number] TEST PERFORMED AT: , Ordering Provid er: DIMITRI WYLIE Report Released Date/Time: Feb 07, 2022 01:33 PM Reporting Lab: [facility] [address] [address] Performing Lab: [facility] [address], [address] [place] [place] [address] E. chaffeensis Ab IgG <1:64 SEE BELO W E. chaffeensis Ab IgM <1:20 SEE BELO W A.phagocytophilum Ab IgG <1:64 SEE B ELOW A.phagocytophilum Ab IgM <1:20 SEE B ELOW EHRLICHIA CHAFFEENSIS AB INTER SEE NOTE A. phagocytophilum inter SEE NOTE Feb 07, 2022 [facility] BABESIA MICROTI, Specimen Type: BLOOD 01:43 PM [facility] DNA PCR(WHV) Comment: The an alytical performance characteristics of this test have been determined by [facility]. It has not been cleared by the FDA. Ordering Provid er: DIMITRI WYLIE Report Released Date/Time: Feb 07, 2022 01:29 PM Reporting Lab: [facility] [address] [address] Performing Lab: [facility] [address] [facility] [address] BABESIA MICROTI, DNA PCR(WHV) Not Detected Not Detected Feb 07, 2022 [facility] RICKETTSIA ANTIBODY Specimen Ty pe: SERUM 01:43 PM [facility] PANEL (Q) Comment: Test P erformed by [employer], [employer] [facility], [address] [place] [address] Ronald Abdul M.D., Ph.D., Director of Laboratories , CLIA [id number] TEST PERFORMED AT: , Ordering Provid er: DIMITRI WYLIE Report Released Date/Time: Feb 07, 2022 01:33 PM Reporting Lab: [facility] [address] [address] Performing Lab: [facility] [address], [address] [facility] [address] RMSF IgG Not Detected Not Detected RMSF IgM Not Detected Not Detected R. typhi IgM Not Detected Not Detected Jan [facility] LYME Specimen Type: SERUM 22, [facility] SEROLOGY Comment: The re sults are supportive evidence for the presence of antibodies and exposure to Borrelia burgdorferi. The LYME SEROLOGY PANEL was performed using the FDA-approved Demetrius YINA Borrelia burdor 2021 [facility] feri modified tw o-tier test system. This modified methodology uses a second EIA in place of a western immunoblot assay, which the FDA has determined is substantially equivalent to or better than stand 01:43 [facility] damaris two-tier aren ting using western blot. Supplemental testing with a second EIA meets CDC guidelines for Lyme disease testing. Performance characteristics of the panel were validated at the [facility]. Results are considered [...] and local health departments, if applicable. The [place] State Form URL is: http://www.ct.gov/dph/dru/dph/infectious_diseases/pdf_forms_/wi88_vrle.pdf Ordering Provid er: DIMITRI WYLIE Report Released Date/Time: Feb 07, 2022 07:49 AM Reporting Lab: [facility] [place] [facility] [address] [address] Performing Lab: [facility] [place] [facility] [address] [facility] [address] TIER 1 LYME SCREENING EIA Presumptive Positive Negative LYME AB FINAL INTERPRETATION POSITIVE HH N egative TIER 2 LYME EIA,IgG Negative Negative TIER 2 LYME EIA,IgM POSITIVE HH Negative Feb 07, 2022 01:43 PM [facility] [place] Specimen Type: SERUM HCS No comment enter ed. Ordering Provid er: DIMITRI WYLIE Report Released Date/Time: Feb 07, 2022 07:49 AM Reporting Lab: [facility] [address] [address] Performing Lab: [facility] [address] [facility] [address] FOLATE 12.99 >5.2 Feb 07, 2022 [facility] C REACTIVE PROTEIN Specimen Typ e: SERUM 01:43 PM [facility] Comment: Refere nce range changed on 01/07/11 [facility] reference ranges for ages >17 [...] Feb 07, 2022 01:18 PM Reporting Lab: [facility] [place] [facility] [address] [address] Performing Lab: [facility] [address] [facility] [address] C REACTIVE PROTEIN (CRPH) 2.32 See eval. Feb 07, 2022 [facility] MALARIA/BABESIA EXAM Specimen T ype: BLOOD 01:43 PM [facility] Comment: Due to the cyclical shed rates of these parasites, one negative specimen does not rule out the possibility of a parasitic infection. Obtain specimens at 6-hour intervals for 36 hours for a com prehensive exami nation. Test Performed by [facility], [employer] [facility], [address] [place] [address] Ronald Abdul M.D., Ph.D., Director of Laboratories , [facility] [id number] TEST PERFORMED AT: , Ordering Provid er: DIMITRI WYLIE Report Released Date/Time: Feb 07, 2022 01:29 PM Reporting Lab: [facility] [place] [facility] [address] [address] Performing Lab: [facility] [place] [facility] [address] [facility] [address], [address] [facility] [address] MALARIA/BABESIA EXAM Negative Negative Feb 07, 2022 MD CNTR WSTRN CORA SCREEN/TITER Specimen Type: SERUM 01:43 PM [employer] [facility] No comment enter ed. Ordering Provid er: DIMITRI WYLIE Report Released Date/Time: Feb 07, 2022 01:29 PM Reporting Lab: [facility] [place] [facility] [address] [address] Performing Lab: [facility] [address] [facility] [address] CORA SCREEN NEG NEG <1:40 Feb 07, 2022 01:43 [facility] VITAMIN B12 Specimen Typ e: SERUM PM [place] [facility] No comment enter ed. Ordering Provid er: DIMITRI WYLIE Report Released Date/Time: Feb 07, 2022 07:49 AM Reporting Lab: [facility] [facility] [address] [address] Performing Lab: [facility] [facility] [address] [address] VITAMIN B12 593 200-900 Feb 07, 2022 [facility] SED RATE, AUTOMATED Specimen Ty pe: BLOOD 01:43 PM [place] [facility] No comment enter ed. Ordering Provid er: DIMITRI WYLIE Report Released Date/Time: Feb 07, 2022 01:18 PM Reporting Lab: [facility] [facility] [address] [address] Performing Lab: [facility] [facility] [address] [address] SED RATE, AUTOMATED 9 0-15 Feb 07, 2022 [facility] URINALYSIS CLEAN Specimen Type: URINE 01:43 PM [facility] CATCH No comment enter ed. Ordering Provid er: DIMITRI WYLIE Report Released Date/Time: Feb 07, 2022 07:50 AM Reporting Lab: [facility] [facility] [address] [address] Performing Lab: [facility] [facility] [address] [address] UA COLOR Yellow Yellow UA APPEARANCE Clear [...] AND DIFF Specimen Type: BLOOD 01:43 PM [facility] (AUTO) No comment enter ed. Ordering Provid er: DIMITRI WYLIE Report Release d Date/Time: Feb 07, 2022 07:49 AM Reporting Lab: [facility] [facility] [address] [address] Performing Lab: [facility] [place] [facility] [address] [address] WBC 6.22 4.50-11.00 RBC 5.24 4.23-5.66 HGB 15.7 12.8-17 HCT 44.8 39.2-50.4 MCV 85.5 82-99 MCHC 35.0 30.8-35.1 PLT 390 H 140-360 RDW-CV 11.4 L 12.0-16.0 Ziebach, Abs 0.46 0.30-1.10 MCH 30.0 26.2-32.6 Neut % 60.2 Lymph % 30.1 [place]iebach % 7.4 Eos % 1.1 Baso % 0.6 Neut, Abs 3.74 2.20-7.60 Lymph, Abs 1.87 1.00-3.20 Eos, Abs 0.07 0.03-0.44 Baso, Abs 0.04 0.01-0.13 Immature Gran % 0.6 Immature Gran, Abs 0.04 0.00-0.06 Jan 30, 2022 11:25 [facility] THYROID TOTAL T4 Specimen Ty pe: SERUM AM [facility] No comment enter ed. Ordering Provid er: YINA HAGAN Report Released Date/Time: Jan 30, 2022 10:32 AM Reporting Lab: [facility] [place] [facility] [address] [address] Performing Lab: [facility] [place] [facility] [address] [facility] [address] THYROID TOTAL T4 8.86 4.5-12.0 Jan 30, 2022 [facility] TESTOSTERONE, TOTAL Specimen Ty pe: SERUM 11:25 AM [place] [facility] No comment enter ed. Ordering Provid er: YINA HAGAN Report Released Date/Time: Jan 30, 2022 10:32 AM Reporting Lab: [facility] [address] [address] Performing Lab: [facility] [address] [facility] [address] TESTOSTERONE, TOTAL 525.91 220.00-892 .00 Jan 30, 2022 [facility] HEMOGLOBIN A1C Specimen Type: BLOOD 11:25 AM [facility] PANEL Comment: Values obtained from A1C measurements can vary. For typical A1C assays, a reported value of 7.0 could actually be between 6.72 and 7.28 if measured by a reference method. A reported value of 9 .0 could actuall y be between 8.73 and 9.27. Ref: http://www.ngsp.org/CAPdata.asp Ordering Provid er: YINA HAGAN Report Released Date/Time: Jan 30, 2022 10:32 AM Reporting Lab: [facility] [address] [address] Performing Lab: [facility] [address] [address] HEMOGLOBIN A1C 4.6 4.0-5.6 Jan 30, 2022 11:25 [facility] TRN CBC AND DIFF Specimen Typ e: BLOOD AM [facility] (AUTO) No comment enter ed. Ordering Provid er: YINA HAGAN Report Released Date/Time: Jan 30, 2022 10:32 AM Reporting Lab: [facility] [address] [address] Performing Lab: [facility] [address] [address] WBC 2.65 L 4.50-11.00 RBC 5.29 4.23-5.66 HGB 15.7 12.8-17 HCT 46.2 39.2-50.4 MCV 87.3 82-99 MCHC 34.0 30.8-35.1 PLT 152 140-360 RDW-CV 11.5 L 12.0-16.0 MCH 29.7 26.2-32.6 Jan 30, 2022 11:25 [facility] LIVER FUNCTION Specimen Typ e: SERUM AM [facility] No comment enter ed. Ordering Provid er: YINA HAGAN Report Released Date/Time: Jan 30, 2022 10:32 AM Reporting Lab: [facility] [facility] [address] [address] Performing Lab: [facility] [facility] [address] [address] PROTEIN,TOTAL 7.2 6.0-8.3 ALBUMIN 4.0 3.5-5.0 ALKALINE PHOSPHATASE 57 40-150 AST 37 H 5-34 ALT 36 <6-55 BILIRUBIN, TOTAL 0.9 0.2-1.2 Jan 30, 2022 11:25 [facility] LIPID PANEL FASTING Specimen Type: SERUM AM [facility] No comment enter ed. Ordering Provid er: YINA HAGAN Report Released Date/Time: Jan 30, 2022 10:32 AM Reporting Lab: [facility] [facility] [address] [address] Performing Lab: [facility] [facility] [address] [address] CHOLESTEROL 167 <7-199 TRIGLYCERIDE 112 0-150 LDL calculated 108 0-129 CHOL/HDL 4.5 HDL CHOLESTEROL 37 L 40-60 Jan 30, 2022 [facility] BASIC METABOLIC PANEL Specimen Type: SERUM 11:25 AM [facility] (fasting) No comment enter ed. Ordering Provid er: YINA HAGAN Report Released Date/Time: Jan 30, 2022 10:32 AM Reporting Lab: [facility] [address] [address] Performing Lab: [facility] [address] [address] UREA NITROGEN 13 7-25 GLUCOSE 102 H [...] Lab: [facility] [facility] [address] [address] Performing Lab: [facility] [facility] [address] [address] VITAMIN B12 354 200-900 Jan 30, 2022 11:25 AM [facility] [place] TSH Specimen Type: SERUM HCS No comment enter ed. Ordering Provid er: YINA HAGAN Report Released Date/Time: Jan 30, 2022 10:32 AM Reporting Lab: [facility] [facility] [address] [address] Performing Lab: [facility] [address] [address] TSH 0.82 0.35-5.00 Jan 30, 2022 11:25 [facility] VITAMIN D (25-OH) Specimen T ype: SERUM AM [place] [facility] No comment enter ed. Ordering Provid er: YINA HAGAN Report Released Date/Time: Jan 30, 2022 10:32 AM Reporting Lab: [facility] [place] [facility] [address] [address] Performing Lab: [facility] [address] [address] VITAMIN D (25-OH) 38 20-50 Jan 30, 2022 [facility] MICROSCOPIC AUTOMATED, Specimen Type: URINE 11:25 AM [facility] No comment enter ed. Ordering Provid er: YINA HAGAN Report Released Date/Time: Jan 30, 2022 10:32 AM Reporting Lab: [facility] [address] [address] Performing Lab: [facility] [facility] [address] [address] UA WBC 0-5 0-5 UA MUCUS FEW Trace UA RBC 3-5 0-3 Jan 30, 2022 [facility] DIFFERENTIAL, MANUAL Specimen T ype: BLOOD 11:25 AM [facility] Comment: Giant platelets present. SENT FOR PATHOLOGY REVIEW Ordering Provid er: YINA HAGAN Report Released Date/Time: Jan 30, 2022 10:32 AM Reporting Lab: [facility] [address] [address] Performing Lab: [facility] [address] [address] SEGS 47 L 48-78 BANDS 5 0-10 LYMPHS 16 10-55 MONOS 23 H 2-12 VARIANT LYMPHOCYTES 5 0-6 OTHER/CELL 4 Jan 30, 2022 11:25 [facility] URINALYSIS S pecimen Type: URINE AM [facility] No comment enter ed. Ordering Provid er: YINA HAGAN Report Released Date/Time: Jan 30, 2022 10:32 AM Reporting Lab: [facility] [address] [address] Performing Lab: [facility] [address] [address] UA COLOR Yellow Yellow UA APPEARANCE Clear Clear UA GLUCOSE Negative Negative UA KETONES Negative Neg UA BLOOD Moderate Neg UA PROTEIN 30 Neg UA NITRITE Negative Neg UA BILIRUBIN Negative Neg UA SPECIFIC GRAVITY 1.027 H 1.016-1.02 2 UA pH 5.0 5.0-9.0 UA UROBILINOGEN <2.0 <2.0 UA LEUKOCYTE ESTERASE Negative Neg Jan [facility] LYME Specimen Type: SERUM 14, [facility] SEROLOGY Comment: The LY [place] SEROLOGY PANEL was performed using the FDA-approved Demetrius YINA Borrelia burdorferi modified two-tier test system. This modified methodology uses a second EIA in place of a western imm 2021 [place] PANEL unoblot assay, w hich the FDA has determined is substantially equivalent to or better than standard two-tier testing using western blot. Supplemental testing with a second EIA meets CDC guidelines for 11:25 [facility] Lyme disease aren ting. Performance characteristics of the panel were validated at the [facility]. Results are considered [...] and local health departments, if applicable. The [place] State Form U RL is: http://www.md.gov/dp/dru/dph/infectious_diseases/pdf_forms_/ha64_wvfa.pdf Ordering Provid er: YINA HAGAN Report Released Date/Time: Feb 03, 2022 12:51 PM Reporting Lab: [facility] [address] [address] Performing Lab: [facility] [place] [facility] [address] [facility] [address] TIER 1 LYME SCREENING EIA Negative Nega tive LYME AB FINAL INTERPRETATION Negative N egative Jan 30, 2022 11:25 MD CNTR [facility] SMEAR CONSULT ([facility]) Specimen Type: BLOOD AM [place] [facility] Comment: SEE [id number] Ordering Provid er: YINA HAGAN Report Released Date/Time: Jan 30, 2022 12:51 PM Reporting Lab: [facility] [place] [facility] [address] [address] Performing Lab: [facility] [address] [address] SMEAR CONSULT ([facility]) comment Vital Signs: All taken on the encounter date This section contains inpatient and outpatient Vital Signs collected on the date of the Encounter. Date/Time Temperature Pulse Blood Respiratory SP02 Pain Height Weight Aleksandr dy Source Pressure Rate Mass Index Jose 22, 97.5 F 81 114/70 16 /min 100 % 5 176 lb 27 [place] 2021 12:49 /min mm[Hg] CNTRL PM [facility] [place] [facility] Social History: Smoking Status (Most current) [...] VA-TOBACCO NEVER USED [facility] C NTRL [facility] [employer] Encounter Notes: All associated encounter notes This section contains the clinical notes associated to the Encounter. Date/Time Encounter Note(s) Provider Source Feb 07, 2022 01:56 PRIMARY CARE NURSE PRACTITIONER OUTPATIE NT NOTE: DIMITRI WYLIE CNTRL [facility] PM LOCAL TITLE: NURSE PRACTITIONER OUTPATIENT NOTE J [employer] [facility] STANDARD TITLE: PRIMARY CARE NURSE PRACTITIONER OUTPATIENT NOTE DATE OF NOTE: FEB 07, 2022@13:56 ENTRY DATE: FEB 07, 2022@13:57:01 AUTHOR: DIMITRI WYLIE EXP COSIGNER: URGENCY: STATUS: COMPLETED HPI: Here to follow up, prashanth villafuerte 01/30/2022 [facility] ER lyme carditis. Today reports no fever but rash has worsened, back of leg s, groin, buttock, arm pits, elbow. He also reports now having low back pain. He is pre sently on doxycycline. Allergies: Patient has answered NKA The following [...] SYMPTOMS. DOSE INCREASE FROM 6 MG. 7) PREDNISONE 20MG TAB TAKE TWO TABLETS BY MOUTH ONCE ACTIVE DAILY 8) SODIUM FLUORIDE 1.1% TOOTHPASTE BRUSH SMALL A MOUNT TO ACTIVE TEETH AT BEDTIME DIRECTED FOR TWO MINUTES, I N PLACE OF YOUR REGULAR TOOTHPASTE. AFTER USE, SP IT OUT. FOR PREVENTION OF DENTAL CARIES AND SENSITIVITY. 9) TRAZODONE HCL 100MG TAB TAKE ONE AND ONE-HALF TABLETS ACTIVE BY MOUTH AT BEDTIME NEEDED FOR SLEEP Review of Systems: Constitutional: (-)for Fevers , chills, weakness, nights sweats On examination: 97.5 F [36.4 C] (02/07/2022 12:49)114/70 (02/07/2022 12:49)81 (02/07/2022 12:49) 16 (02/07/2022 12:49)5 (01/18 12:49)BMI: 26.8176 lb [79.83 kg] (02/07/2022 12:49) is alert and oriented X3 Eyes:No scleral icterus, lids normal, Pu pils equal,round and reactive to light HEENT: External without scars, lesions or masses , TM's without erythema or perforations, Oropharynx without erythema or exu dates or worrisome lesions Neck: supple without masses, [...] downgoing, CN 2 to 10 intact Derm: diffiuse rash see above All diagnostics from past month were reviewed wi th patient. Assessment/plan: Active problems - Computerized Problem List is t he source for the following: Sytemic rash - repeat CBC with diff, recheck tic [facility] labs Prednisone 20mg daily. Advised to come back to [place] on Thursday for follow up. I provided a warm hand off to [place] provider. Review of medial record = 5mins Time spent with Patient including shared decisio n making = 15 mins Post visit documentation = 5mins Total time = 20 mins Alert to PACT RN - Labs as [...] [facility] ([facility] an d dispensed from another [facility] or [facility] facility (remote) as well as inpatien t [...] with a [facility] or non-[facility] provider. /ivelisse/ Dimitri Wylie DNP, PATENT CHEMIST-BC, CNL Primary Care Nurse Practitioner Signed: 02/07/2022 14:02
--- OUTSIDE RECORDS SUMMARY | 2022-04-18 10:19 | XMS_ITS | Encounter Summary ---
:1990 Author Organization Department [facility] rs Address [address] [place] [address] Support Name Relationship Address Phone TETE TRAN Unavailable [address] [facility] [address] THOMAS MONTOYA Unavailable 6 [facility] [place] [address] Insurance Providers: All historical and current Section [...] Name to Policy Number Ojeda [facility] Aug 03, [id number] [phone] ROSA MARIA CowanIL PATIENT BEE GIMENEZ [id number] STEPHANIE JOHNSON [facility]GAN E DEPT Selected Encounter This section includes the information on record at [facility] for the Encounter. Date/Time Encounter Type Encounter Reason Provider Source Description Feb 06, 2022 PSYTX W PT 30 TELEPHONE ICD-10-CM F43.10 LUCINDA DEL ANGEL 04:00 PM MINUTES Post-traumatic IE stress disorder, unspecified with Provider Comments: Posttraumatic stress disorder ([facility] [id number]) IHE Encounter Template Text not used by [facility] Assessments - Encounter Diagnoses This section includes the primary and secondary diagnoses documented for the Encounter. Date/Time Primary/Secondary Diagnosis Name Provider Source Diagnosis Feb 06, 2022 PRIMARY Post-traumatic MERDAI [place] [facility] WS TRN 04:00 PM stress disorder, [facility] unspecified Feb 06, 2022 SECONDARY Major depressive MERVERO [place] [facility] 04:00 PM disorder, [facility] recurrent, moderate Plan of Treatment: Future Appointments (+ 6 months) and Future Tests (+/- 45 days) The Plan of Treatment section includes future care activities for the patient from all [place] treatment[facility]. This section includes future appointments and future orders which are active, pending orscheduled.Future Appointments This section includes appointments that were scheduled to occur 6 months from the date of the Encounter, up to a maximum of 20 appointments. The data comes from all [place] treatment facilities. Appointment Date/Time Appointment Type Appointment Facili ty Name Feb 07, 2022 01:00 PM AMBULATORY - MEDICINE [facility] [place] [facility] Feb 10, 2022 01:15 PM AMBULATORY - MEDICINE [place] [facility] [place] [facility] Feb 10, 2022 01:45 PM AMBULATORY - MEDICINE [place] [facility] [place] [facility] Feb 12, 2022 09:00 AM AMBULATORY - PSYCHIATRY [facility] [place] [facility] Feb 14, 2022 12:00 PM AMBULATORY - PSYCHIATRY [facility] [place] [facility] Feb 25, 2022 01:00 PM AMBULATORY - PSYCHIATRY [facility] [place] [facility] Feb 27, 2022 02:00 PM AMBULATORY - PSYCHIATRY [facility] [place] [facility] Mar 17, 2022 03:00 PM AMBULATORY - PSYCHIATRY [facility] [place] [facility] Mar 28, 2022 09:00 AM AMBULATORY - PSYCHIATRY [facility] [place] [facility] Apr 17, 2022 01:00 PM AMBULATORY - NONE [facility] [place] [facility] Apr 25, 2022 09:00 AM AMBULATORY - PSYCHIATRY [facility] [place] [facility] May 09, 2022 09:00 AM AMBULATORY - PSYCHIATRY [facility] [place] [facility] May 23, 2022 09:00 AM AMBULATORY - PSYCHIATRY [facility] [place] [facility] Jul 17, 2022 08:30 AM AMBULATORY - NONE [facility] [place] [facility] Lab Results: +/- 30 days [...] Interpretation Reference Range Comment Feb 07, 2022 [facility]UCELLA ANTIBODY, Specimen Typ e: SERUM 01:43 PM [place] [facility] AGGLUTINATION Comment: REFERE NCE RANGE: [...] performance characteri stics have been determined by [employer]. It has not been cleared or approved by FDA. This assay has been validated pursuant to the CLIA regulations and is used for clinical purposes. Test perfor med by [employer] [facility] [address] [place] [address] [place] Actor: Alejandrina Quick MD,PHD,[place]IR[place]IE Test performed at [employer] [facility] Corporation[place], [place]. Ordering Provid er: DIMITRI SCRUGGS Report Released Date/Time: Feb 07, 2022 01:27 PM Reporting Lab: [facility] [address] [facility] [address] Performing Lab: [facility] [place] [facility] [address], [address] [facility] [address] BRUCELLA ANTIBODY, AGGLUTINATION <1:80 Feb 07, 2022 [facility] BABESIA MICROTI Specimen Type: SERUM 01:43 PM [place] [facility] ANTIBODIES (IgG, Comment: REFER ENCE [...] analytical performance characteristics have been determined by [employer], [place]. It has not been cleared or approved by the U.S. Food and Drug A dministration. T his assay has been validated pursuant to the CLIA regulations and is used for clinical purposes. Test Performed by [facility], [facility], [address] [place], [place] Ronald Abdul M.D., Ph.D., Director of Laboratories , CLIA [id number] TEST PERFORMED AT: , Ordering Provid er: DIMITRI SCRUGGS Report Released Date/Time: Feb 07, 2022 01:29 PM Reporting Lab: [facility] [address] [facility] [address] Performing Lab: [facility] [address], [address] [facility] [address] Babesia microti IgG <1:64 SEE BELOW Babesia microti IgM <1:20 SEE BELOW BABESIA MICROTI AB INTER SEE NOTE Feb 07, 2022 [facility] ANAPLASMA AND Specimen Type: SERUM 01:43 PM [facility] EHRLICHIA AB PANEL Comment: REF [...] performance c haracteristics have been determined by [employer] [place], [place]. It has not been cleared or [...] analytical performance characteristics have been determined by [employer] [place], [place]. It has not been cleared or approved by the U.S. Food and Drug Administration. This assay has been validated pursuant to the CLIA regulations and is used for clinical purposes. Test Performed by [facility], [employer] [facility], [address] [place] [address] Ronald Abdul M.D., Ph.D., Director of Laboratories , CLIA [id number] TEST PERFORMED AT: , Ordering Provid er: DIMITRI SCRUGGS Report Released Date/Time: Feb 07, 2022 01:33 PM Reporting Lab: [facility] [address] [facility] [address] Performing Lab: [facility] [address] [address] E. chaffeensis Ab IgG <1:64 SEE BELO W E. chaffeensis Ab IgM <1:20 SEE BELO W A.phagocytophilum Ab IgG <1:64 SEE B ELOW A.phagocytophilum Ab IgM <1:20 SEE B ELOW EHRLICHIA CHAFFEENSIS AB INTER SEE NOTE A. phagocytophilum inter SEE NOTE Feb 07, 2022 [facility] BABESIA MICROTI, Specimen Type: BLOOD 01:43 PM [facility] DNA PCR(WHV) Comment: The an alytical performance characteristics of this test have been determined by [facility]. It has not been cleared by the FDA. Ordering Provid er: DIMITRI SCRUGGS Report Released Date/Time: Feb 07, 2022 01:29 PM Reporting Lab: [facility] [address] [facility] [address] Performing Lab: [facility] [address] [facility] [address] BABESIA MICROTI, DNA PCR(WHV) Not Detected Not Detected Feb 07, 2022 [facility] RICKETTSIA ANTIBODY Specimen Ty pe: SERUM 01:43 [facility] PANEL (Q) Comment: Test P erformed by [employer], [employer] [facility], [address] [place] [address] Ronald Abdul M.D., Ph.D., Director of Laboratories , CLIA [id number] TEST PERFORMED AT: , Ordering Provid er: DIMITRI SCRUGGS Report Released Date/Time: Feb 07, 2022 01:33 PM Reporting Lab: [facility] [address] [facility] [address] Performing Lab: [facility] [address], [address] [facility] [address] RMSF IgG Not Detected Not Detected RMSF IgM Not Detected Not Detected R. typhi IgM Not Detected Not Detected Jan [facility] LYME Specimen Type: SERUM 22, WSTRN SEROLOGY Comment: The re sults are supportive evidence for the presence of antibodies and exposure to Borrelia burgdorferi. The LYME SEROLOGY PANEL was performed using the FDA-approved Demetrius YINA Borrelia burdor 2021 [facility] PAN[facility] feri modified tw o-tier test system. This modified methodology uses a second EIA in place of a western immunoblot assay, which the FDA has determined is substantially equivalent to or better than stand 01:43 [facility] damaris two-tier aren ting using western blot. Supplemental testing with a second EIA meets CDC guidelines for Lyme disease testing. Performance characteristics of the panel were validated at the [facility] lar Diagnostics Laboratory. Results are [...] applicable. The [place] State Form URL is: http://www.[place].gov/dp/rdu/dph/infectious_diseases/pdf_forms_/oi89_osbl.pdf Ordering Provid er: DIMITRI SCRUGGS Report Released Date/Time: Feb 07, 2022 07:49 AM Reporting Lab: [place] [facility] [employer] NujiraTRN [place] [facility] [address] [facility] [facility] [address] Performing Lab: [facility] NujiraTRN [place] [facility] [address] [facility] [address] TIER 1 LYME SCREENING EIA Presumptive Positive Negative LYME AB FINAL INTERPRETATION POSITIVE HH N egative TIER 2 LYME EIA,IgG Negative Negative TIER 2 LYME EIA,IgM POSITIVE HH Negative Feb 07, 2022 01:43 PM [facility] [place] FOLATE Specimen Type: SERUM HCS No comment enter ed. Ordering Provid er: DIMITRI SCRUGGS Report Released Date/Time: Feb 07, 2022 07:49 AM Reporting Lab: [place] [facility] NujiraTR[facility] [place]BOX[place] [facility] [address] [facility] [address] Performing Lab: [facility]TRN [place] [facility] [address] [facility] [address] FOLATE 12.99 >5.2 Feb 07, 2022 [place] [facility] C REACTIVE PROTEIN Specimen Typ e: SERUM 01:43 PM [facility] (CRP) Comment: Refere nce range changed [...] Feb 07, 2022 01:18 PM Reporting Lab: [facility] [address] [facility] [address] Performing Lab: [facility] [address] [facility] [address] C REACTIVE PROTEIN (CRPH) 2.32 See eval. Feb 07, 2022 [facility] MALARIA/BABESIA EXAM Specimen T ype: BLOOD 01:43 PM [facility] Comment: Due to the cyclical shed rates of these parasites, one negative specimen does not rule out the possibility of a parasitic infection. Obtain specimens at 6-hour intervals for 36 hours for a com prehensive exami nation. Test Performed by [facility], [employer] [facility], [address] [place] [address] Ronald Abdul M.D., Ph.D., Director of Laboratories , [place] [id number] TEST PERFORMED AT: , Ordering Provid er: DIMITRI SCRUGGS Report Released Date/Time: Feb 07, 2022 01:29 PM Reporting Lab: [facility] [address] [facility] [address] Performing Lab: [facility] [address], [address] [place] [address] MALARIA/BABESIA EXAM Negative Negative Feb 07, 2022 [facility] CORA SCREEN/TITER Specimen Type: SERUM 01:43 PM [facility] No comment enter ed. Ordering Provid er: DIMITRI SCRUGGS Report Released Date/Time: Feb 07, 2022 01:29 PM Reporting Lab: [place] [facility] [facility] [address] [facility] [address] Performing Lab: [facility] [place] [facility] [address] [facility] [address] CORA SCREEN NEG NEG <1:40 Feb 07, 2022 01:43 [facility] VITAMIN B12 Specimen Typ e: SERUM PM [facility] No comment enter ed. Ordering Provid er: DIMITRI SCRUGGS Report Released Date/Time: Feb 07, 2022 07:49 AM Reporting Lab: [facility] [address] [facility] [address] Performing Lab: [place] [facility] [address] [facility] [address] VITAMIN B12 593 200-900 Feb 07, 2022 [place] [facility] SED RATE, AUTOMATED Specimen Ty pe: BLOOD 01:43 PM [facility] No comment enter ed. Ordering Provid er: DIMITRI SCRUGGS Report Released Date/Time: Feb 07, 2022 01:18 PM Reporting Lab: [place] [facility] [facility] [address] [facility] [address] Performing Lab: [place] [facility] [address] [facility] [address] SED RATE, AUTOMATED 9 0-15 Feb 07, 2022 [facility] URINALYSIS CLEAN Specimen Type: URINE 01:43 PM [facility] CATCH No comment enter ed. Ordering Provid er: DIMITRI SCRUGGS Report Released Date/Time: Feb 07, 2022 07:50 AM Reporting Lab: [facility] [facility] [address] [facility] [address] Performing Lab: [place] [facility] [facility] [address] [facility] [address] UA COLOR Yellow Yellow UA APPEARANCE Clear Clear UA GLUCOSE Negative Negative UA KETONES Negative Neg UA BLOOD Negative Neg UA PROTEIN Negative Neg UA NITRITE Negative Neg UA BILIRUBIN Negative Neg UA SPECIFIC GRAVITY 1.017 1.016-1.02 2 UA pH 6.0 5.0-9.0 UA UROBILINOGEN <2.0 <2.0 UA LEUKOCYTE ESTERASE Negative Neg Feb 07, 2022 [facility] CBC AND DIFF Specimen Type: BLOOD 01:43 PM [facility] (AUTO) No comment enter ed. Ordering Provid er: DIMITRI SCRUGGS Report Released Date/Time: Feb 07, 2022 07:49 AM Reporting Lab: [place] [facility] [facility] [address] [facility] [address] Performing Lab: [place] [facility] [facility] [address] [facility] [address] WBC 6.22 4.50-11.00 RBC 5.24 4.23-5.66 HGB 15.7 12.8-17 HCT 44.8 39.2-50.4 MCV 85.5 82-99 MCHC 35.0 30.8-35.1 PLT 390 H 140-360 RDW-CV 11.4 L 12.0-16.0 Alfalfa, Abs 0.46 0.30-1.10 MCH 30.0 26.2-32.6 Neut % 60.2 Lymph % 30.1 Alfalfa % 7.4 Eos % 1.1 Baso % 0.6 Neut, Abs 3.74 2.20-7.60 Lymph, Abs 1.87 1.00-3.20 Eos, Abs 0.07 0.03-0.44 Baso, Abs 0.04 0.01-0.13 Immature Gran % 0.6 Immature Gran, Abs 0.04 0.00-0.06 Jan 30, 2022 11:25 [facility] THYROID TOTAL T4 Specimen Ty pe: SERUM AM [facility] No comment enter ed. Ordering Provid er: YINA HAGAN Report Released Date/Time: Jan 30, 2022 10:32 AM Reporting Lab: [facility] [facility] [address] [facility] [address] Performing Lab: [place] [facility] [facility] [address] [facility] [address] THYROID TOTAL T4 8.86 4.5-12.0 Jan 30, 2022 [facility] TESTOSTERONE, TOTAL Specimen Ty pe: SERUM 11:25 AM [facility] No comment enter ed. Ordering Provid er: YINA HAGAN Report Released Date/Time: Jan 30, 2022 10:32 AM Reporting Lab: [place] [facility] [facility] [address] [facility] [address] Performing Lab: [facility] Beth [facility] [address] TESTOSTERONE, TOTAL 525.91 220.00-892 .00 Jan 30, 2022 [facility] HEMOGLOBIN A1C Specimen Type: BLOOD 11:25 AM [facility] PANEL Comment: Values obtained from A1C [...] 2022 10:32 AM Reporting Lab: [facility] WSTRN [facility] [address] [facility] [address] Performing Lab: [facility]ITALRMOUNT[facility]IEW HOSPITALTRN [facility] [address] [facility] [address] HEMOGLOBIN A1C 4.6 4.0-5.6 Jan 30, 2022 11:25 [facility] WSTRN CBC AND DIFF Specimen Typ e: BLOOD AM [facility] (AUTO) No comment enter ed. Ordering Provid er: YINA HAGAN Report Released Date/Time: Jan 30, 2022 10:32 AM Reporting Lab: [facility] WSTRN [facility] [address] [facility] [address] Performing Lab: [facility]ITALRMOUNT[facility] VIEW HOSPITALTRN [facility] [address] [facility] [address] WBC 2.65 L 4.50-11.00 RBC 5.29 4.23-5.66 HGB 15.7 12.8-17 HCT 46.2 39.2-50.4 MCV 87.3 82-99 MCHC 34.0 30.8-35.1 PLT 152 140-360 RDW-CV 11.5 L 12.0-16.0 MCH 29.7 26.2-32.6 Jan 30, 2022 11:25 [facility] LIVER FUNCTION Specimen Typ e: SERUM AM [place] [facility] No comment enter ed. Ordering Provid er: YINA HAGAN Report Released Date/Time: Jan 30, 2022 10:32 AM Reporting Lab: [facility] W[facility] [place] [facility] [address] [facility] [address] Performing Lab: [facility] WSTRN [place] [facility] [address] [facility] [address] PROTEIN,TOTAL 7.2 6.0-8.3 ALBUMIN 4.0 3.5-5.0 ALKALINE PHOSPHATASE 57 40-150 AST 37 H 5-34 ALT 36 <6-55 BILIRUBIN, TOTAL 0.9 0.2-1.2 Jan 30, 2022 11:25 [place] [facility] LIPID PANEL FASTING Specimen Type: SERUM AM [place] [facility] No comment enter ed. Ordering Provid er: YINA HAGAN Report Released Date/Time: Jan 30, 2022 10:32 AM Reporting Lab: [facility] W[facility] [place] [facility] [address] [facility] [address] Performing Lab: [facility]ITALRL TRN [place] [facility] [address] [facility] [address] CHOLESTEROL 167 <7-199 TRIGLYCERIDE 112 0-150 LDL calculated 108 0-129 CHOL/HDL 4.5 HDL CHOLESTEROL 37 L 40-60 Jan 30, 2022 [facility] BASIC METABOLIC PANEL Specimen Type: SERUM 11:25 AM [place] [facility] (fasting) No comment enter ed. Ordering Provid er: YINA HAGAN Report Released Date/Time: Jan 30, 2022 10:32 AM Reporting Lab: [facility] [place] [facility] [address] [facility] [address] Performing Lab: [place] [facility] [place] [facility] [address] [facility] [address] UREA NITROGEN 13 7-25 GLUCOSE 102 H [...] Lab: [facility] [place] [facility] [address] [facility] [address] Performing Lab: [facility] [place] [facility] [address] [facility] [address] TSH 0.82 0.35-5.00 Jan 30, 2022 11:25 [facility] [place] VITAMIN B12 S pecimen Type: SERUM AM HCS No comment enter ed. Ordering Provid er: YINA HAGAN Report Released Date/Time: Jan 30, 2022 10:32 AM Reporting Lab: [facility] [place] [facility] [address] [facility] [address] Performing Lab: [facility] [place] [facility] [address] [facility] [address] VITAMIN B12 354 200-900 Jan 30, 2022 11:25 [facility] VITAMIN D (25-[place]) Specimen T ype: SERUM AM [place] [facility] No comment enter ed. Ordering Provid er: YINA HAGAN Report Released Date/Time: Jan 30, 2022 10:32 AM Reporting Lab: [facility] [place] [facility] [address] [facility] [address] Performing Lab: [facility] [place] [facility] [address] [facility] [address] VITAMIN D (25-[place]) 38 20-50 Jan 30, 2022 [facility] MICROSCOPIC AUTOMATED, Specimen Type: URINE 11:25 AM [place] [facility] URINE No comment enter ed. Ordering Provid er: YINA HAGAN Report Released Date/Time: Jan 30, 2022 10:32 AM Reporting Lab: [facility] [place] [facility] [address] [facility] [address] Performing Lab: [facility] [place] [facility] [address] [facility] [address] UA WBC 0-5 0-5 UA MUCUS FEW Trace UA RBC 3-5 0-3 Jan 30, 2022 [facility] WSTRN DIFFERENTIAL, MANUAL Specimen T ype: BLOOD 11:25 AM [facility] Comment: Giant platelets present. SENT FOR PATHOLOGY REVIEW Ordering Provid er: YINA HAGAN Report Released Date/Time: Jan 30, 2022 10:32 AM Reporting Lab: [facility] WSTRN [place] [facility] [address] [facility] [address] Performing Lab: [facility] WSTRN [place] [facility] [address] [facility] [address] SEGS 47 L 48-78 BANDS 5 0-10 LYMPHS 16 10-55 MONOS 23 H 2-12 VARIANT LYMPHOCYTES 5 0-6 OTHER/CELL 4 Jan 30, 2022 11:25 [facility] URINALYSIS S pecimen Type: URINE AM [facility] No comment enter ed. Ordering Provid er: YINA HAGAN Report Released Date/Time: Jan 30, 2022 10:32 AM Reporting Lab: [facility] [place] [facility] [address] [facility] [address] Performing Lab: [facility] [address] [facility] [address] UA COLOR Yellow Yellow UA APPEARANCE Clear [...] second EIA meets CDC guidelines for 11:25 [facility] Lyme disease aren ting. Performance characteristics of the panel were validated at the [facility]. Results are considered [...] The [place] State Form U RL is: http://www.[place].gov/dph/dru/dph/infectious_diseases/pdf_forms_/qv68_umwm.pdf Ordering Provid er: YINA HAGAN Report Released Date/Time: Feb 03, 2022 12:51 PM Reporting Lab: [facility] [place] [facility] [address] [facility] [address] Performing Lab: [facility] WSTRN [place] [facility] [address] [facility] [address] TIER 1 LYME SCREENING EIA Negative Nega tive LYME AB FINAL INTERPRETATION Negative N egative Jan 30, 2022 11:25 [facility] Specimen Type: BLOOD AM [place] [facility] Comment: SEE HE [id number] Ordering Provid er: YINA HAGAN Report Released Date/Time: Jan 30, 2022 12:51 PM Reporting Lab: [facility] [place] [facility] [address] [facility] [address] Performing Lab: [facility] WSTRN [place] [facility] [address] [facility] [id number] SMEAR CONSULT ([facility]) comment Social History: Smoking Status (Most current) and Tobacco Use (All prior to encounter date) This section includes the most current, and the historical, smoking and tobacco-related health factors from the [place] facility where the Encounter took place.Current Smoking Status This section includes the most current smoking, or tobacco-related health factor, from the [place] facility where the Encounter took place. Date/Time Current Smoking Status Comment Facility May 23, 2021 02:30 PM VA-TOBACCO NEVER USED [place] [facility] Encounter Notes: All associated encounter notes This section contains the clinical notes associated to the Encounter. Date/Time Encounter Note(s) Provider Source Feb 06, 2022 04:00 SOCIAL WORK NOTE: ANIVAL DEL ANGEL [place] [facility] PM LOCAL TITLE: SOCIAL WORK NOTE [facility] STANDARD TITLE: SOCIAL WORK NOTE DATE OF NOTE: FEB 06, 2022@16:00 ENTRY DATE: FEB 06, 2022@16:12:25 AUTHOR: ANIVAL DEL ANGEL EXP COSIGNER: URGENCY: STATUS: COMPLETED VISIT DURATION: 25 minutes DIAGNOSES: PTSD; [employer] STATEMENT OF GOALS/CONCERNS: [place] shared he had to sto p working due to getting lyme disease on the job. He said he was seriously considering dropping out o f the [employer]er [employer] training program. I need a place where it's beneficial n ot only to me but my family too. He said he was feeling more depressed, but that he has not been having suicidal thoughts. He shared struggling with low er back pain which is interfering with his quality of life. He told his : I haven't been able to see [my therapist], I put [facility] (the [facility] PTSD program) on the backburner because of the job, I can't keep doin g this for a job where at the end of the day you are just a number. He shared that I really want to take care of myself mentally, physically and I don't think I'll be able to do that going through this program....it's not working out. 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 When asked what led him to consider thi s, he said I feel like the security is there if ever I get hurt on the job the job is going t o take care of me...and it's there. They would take me in a heartbeat. He said he wanted to take at least a month to recover and think about it. SESSION FOCUS: PTSD; vocational goals INTERVENTIONS: Psychotherapeutic Interventions: Assessment of sxs, s/i, well-being, and needs. Space to discuss/explore/problem solve r egarding his vocation. Used reflective listening to highlight his goals, values, and ne eds. Explored his options. 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 Offered suggestion, wh ere possible, to give as much time as he can to his mental health before returning to that line of w ork. He shared he was open to this idea and expressed mostly being concerned a bout income. Also facilitated thoughts on finding other vo cational paths he might take, including talking with voc rehab/supportive employment resources. He wa s very open to that. Discussed future appointments and his now being available to come in to the clinic. ASSESSMENT: BRIEF ASSESSMENT OF MENTAL STATUS: 1. [...] was normal: depressed Other Observations: RISK ASSESSMENT: Denies s/i PLAN FOR FOLLOW-UP: Return next week /ivelisse/ [facility] CLINICAL DIRECTOR WEIGHTS AND MEASURES Signed: 02/06/2022 16:36
--- OUTSIDE RECORDS SUMMARY | 2022-04-18 10:20 | XMS_ITS | Encounter Summary ---
:1990 Author Organization Department of [facility] rs Address [address] [place] [address] Support Name Relationship Address Phone TETE TRAN Unavailable [address] [facility] [phone] [address] [place] [address] THOMAS MONTOYA Unavailable [address] [place] [address] Insurance Providers: All historical and current Section [...] [facility] Aug 03, [id number] [phone] ROSA MARIA CowanPR ASHLEE BROOKS [id number] STEPHANIE JOHNSON [facility] ORGANIZ E DEPT Selected Encounter This section includes the information on record at [place] for the Encounter. Date/Time Encounter Type Encounter Reason Provider Source Description Feb 10, 2022 OFFICE O/P EST PRIMARY ICD-10-CM R21 YINA HAGAN 01:45 PM LOW 20-29 MIN CARE/MEDICINE Rash and other nonspecific skin eruption with Provider Comments: Rash and other Nonspecific Skin Eruption IHE Encounter Template Text not used by [facility] Assessments - Encounter Diagnoses This section includes the primary and secondary diagnoses documented for the Encounter. Date/Time Primary/Secondary Diagnosis Name Provider Source Diagnosis Mar 03, 2022 PRIMARY Rash and other YINA HAGAN [place] CHANI BATEST RN 11:59 AM nonspecific skin [facility] eruption Mar 03, 2022 SECONDARY Other low back YINA HAGAN [place] CHANI BATEST RN 11:59 AM pain [facility] Plan of Treatment: Future Appointments (+ 6 months) and Future Tests (+/- 45 days) The Plan of Treatment section includes future care activities for the patient from all [place] [facility]. This section includes future appointments and future orders which are active, pending orscheduled.Future Appointments This section includes appointments that were scheduled to occur 6 months from the date of the Encounter, up to a maximum of 20 appointments. The data comes from all [place] treatment facilities. Appointment Date/Time Appointment Type Appointment Facili ty Name Feb 12, 2022 09:00 AM AMBULATORY - PS[place]IATRY [facility] [place] [facility] Feb 14, 2022 12:00 PM AMBULATORY - PSYCHIATRY [facility] [place] [facility] Feb 25, 2022 01:00 PM AMBULATORY - PSYCHIATRY [facility] [place] [facility] Feb 27, 2022 02:00 PM AMBULATORY - PSYCHIATRY [facility] [place] [facility] Mar 17, 2022 03:00 PM AMBULATORY - PSYCHIATRY [facility] [place] [facility] Mar 28, 2022 09:00 AM AMBULATORY - PSYCHIATRY [facility] [place] [facility] Apr 17, 2022 01:00 PM AMBULATORY - NONE [facility] [place] [facility] Apr 25, 2022 09:00 AM AMBULATORY - PSYCHIATRY [facility] [place] [facility] May 09, 2022 09:00 AM AMBULATORY - PS[place]CHIATRY [facility] [place] [facility] May 23, 2022 09:00 AM AMBULATORY - PSYCHIATRY [facility] [place] [facility] Jul 17, 2022 08:30 AM AMBULATORY - NONE [place] [facility] [place] [facility] Lab Results: +/- 30 days of the encounter This section includes the Chemistry and Hematology Lab Results on record with [place] for the patient. Radiology Reports and Pathology Reports are provided separately, in subsequent sections.Lab Results This section contains the Chemistry/Hematology Results that were resulted 30 days before or 30 daysafter the date of the Encounter. Date/Time Source Result Type Result - Unit Interpretation Reference Range Comment Feb 07, 2022 [place] [facility] BRUCELLA ANTIBODY, Specimen Typ e: SERUM 01:43 PM [facility] AGGLUTINATION Comment: REFERE NCE RANGE: <1:80 [...] performance characteri stics have been determined by [facility]. It has not been cleared or approved by FDA. This assay has been validated pursuant to the CLIA regulations and is used for clinical purposes. Test perfor med by [facility] [address] [place] [address] Supervising Editor News Reel: Alejandrina Quick MD,PHD,[place] Test performed at [facility], [place], [place]. Ordering Provid er: DIMITRI SCRUGGS Report Released Date/Time: Feb 07, 2022 01:27 PM Reporting Lab: [facility] [address] [facility] [address] Performing Lab: [facility] [address] [facility] [address] [facility], [address] [facility] [address] BRUCELLA ANTIBODY, AGGLUTINATION <1:80 Feb 07, 2022 [facility] BABESIA MICROTI Specimen Type: SERUM 01:43 PM [facility] ANTIBODIES (IgG, Comment: REFER ENCE RANGE: [...] analytical performance characteristics have been determined by [facility]. It has not been cleared or approved by the U.S. Food and Drug A dministration. T his assay has been validated pursuant to the CLIA regulations and is used for clinical purposes. Test Performed by [facility], [place], [address] [facility] [place], [place] Ronald Abdul M.D., Ph.D., Director of Laboratories , CLIA [id number] TEST PERFORMED AT: , Ordering Provid er: DIMITRI SCRUGGS Report Released Date/Time: Feb 07, 2022 01:29 PM Reporting Lab: [facility] [address] [facility] [address] Performing Lab: [facility] [address] [facility], [address] [facility] [address] Babesia microti IgG <1:64 SEE BELOW Babesia microti IgM <1:20 SEE BELOW BABESIA MICROTI AB INTER SEE NOTE Feb 07, 2022 [facility] ANAPLASMA AND Specimen Type: SERUM 01:43 PM [facility] EHRLICHIA AB PANEL Comment: REF ERENCE [...] performance c haracteristics have been determined by [facility], [place], [place]. It has not been cleared [...] analytical performance characteristics have been determined by [facility] [place], [place]. It has not been cleared or approved by the U.S. Food and Drug Administration. This assay has been validated pursuant to the CLIA regulations and is used for clinical purposes. Test Performed by [facility], [facility], [address] [place] [address] Ronald Abdul M.D., Ph.D., Director of Laboratories , CLIA [id number] TEST PERFORMED AT: , Ordering Provid er: DIMITRI SCRUGGS Report Released Date/Time: Feb 07, 2022 01:33 PM Reporting Lab: [facility] [address] [facility] [address] Performing Lab: [facility] [address] [facility] [address] [place], [address] [place] [address] E. chaffeensis Ab IgG <1:64 SEE BELO W E. chaffeensis Ab IgM <1:20 SEE BELO W A.phagocytophilum Ab IgG <1:64 SEE B ELOW A.phagocytophilum Ab IgM <1:20 SEE B ELOW EHRLICHIA CHAFFEENSIS AB INTER SEE NOTE A. phagocytophilum inter SEE NOTE Feb 07, 2022 [facility] BABESIA MICROTI, Specimen Type: BLOOD 01:43 PM [facility] DNA PCR([facility]) Comment: The an alytical performance characteristics of this test have been determined by [facility]. It has not been cleared by the FDA. Ordering Provid er: DIMITRI SCRUGGS Report Released Date/Time: Feb 07, 2022 01:29 PM Reporting Lab: [facility] [address] [facility] [address] Performing Lab: [facility] [address] [facility] [address] BABESIA MICROTI, DNA PCR([facility]) Not Detected Not Detected Feb 07, 2022 [facility] RICKETTSIA ANTIBODY Specimen Ty pe: SERUM 01:43 PM [facility] PANEL (Q) Comment: Test P erformed by Betty Tracey, [employer] [place] [facility], [address] [place] [address] Ronald Abdul M.D., Ph.D., Director of Laboratories , CLIA [id number] TEST PERFORMED AT: , Ordering Provid er: DIMITRI SCRUGGS Report Released Date/Time: Feb 07, 2022 01:33 PM Reporting Lab: [facility] [address] [facility] [address] Performing Lab: [facility] [address] [place], [address] [place] [address] RMSF IgG Not Detected Not Detected RMSF IgM Not Detected Not Detected R. typhi IgM Not Detected Not Detected Jan [facility] LYME Specimen Type: SERUM 22, [facility] SEROLOGY Comment: The re sults are supportive evidence for the presence of antibodies and exposure to Borrelia burgdorferi. The LYME SEROLOGY PANEL was performed using the FDA-approved Demetrius YINA Borrelia burdor 2021 [facility] feri modified tw o-tier test system. This modified methodology uses a second EIA in place of a western immunoblot assay, which the FDA has determined is substantially equivalent to or better than stand 01:43 [facility] damaris two-tier aren ting using western blot. Supplemental testing with a second EIA meets CDC guidelines for Lyme disease testing. Performance characteristics of the panel were validated at the [facility] lar Diagnostics Laboratory. Results are considered [...] and local health departments, if applicable. The [place] State Form URL is: http://www.ct.gov/dph/dru/dph/infectious_diseases/pdf_forms_/qt49_zkss.pdf Ordering Provid er: DIMITRI SCRUGGS Report Released Date/Time: Feb 07, 2022 07:49 AM Reporting Lab: [place] [employer] [facility] [place] [facility] [address] [facility] [address] Performing Lab: [facility]N [place] [facility] [address] [facility] [address] TIER 1 LYME SCREENING EIA Presumptive Positive Negative LYME AB FINAL INTERPRETATION POSITIVE HH N egative TIER 2 LYME EIA,IgG Negative Negative TIER 2 LYME EIA,IgM POSITIVE HH Negative Feb 07, 2022 01:43 PM [place] [facility] [place] FOLATE Specimen Type: SERUM HCS No comment enter ed. Ordering Provid er: DIMITRI SCRUGGS Report Released Date/Time: Feb 07, 2022 07:49 AM Reporting Lab: [facility] [place] [facility] [address] [facility] [address] Performing Lab: [place] [facility] [place] [facility] [address] [facility] [address] FOLATE 12.99 >5.2 Feb 07, 2022 [place] [facility] C REACTIVE PROTEIN Specimen Typ e: SERUM 01:43 PM [facility] ([facility]) Comment: Refere nce range changed on 01/07/11 [facility] reference ranges for ages >17 years: [...] Feb 07, 2022 01:18 PM Reporting Lab: [facility] [address] [facility] [address] Performing Lab: [facility] [address] [facility] [address] C REACTIVE PROTEIN (CRPH) 2.32 See eval. Feb 07, 2022 [facility] MALARIA/BABESIA EXAM Specimen T ype: BLOOD 01:43 PM [facility] Comment: Due to the cyclical shed rates of these parasites, one negative specimen does not rule out the possibility of a parasitic infection. Obtain specimens at 6-hour intervals for 36 hours for a com prehensive exami nation. Test Performed by [facility], [facility], [address] [place] [address] Ronald Abdul M.D., Ph.D., Director of Laboratories , [facility] [id number] TEST PERFORMED AT: , Ordering Provid er: DIMITRI SCRUGGS Report Released Date/Time: Feb 07, 2022 01:29 PM Reporting Lab: [facility] [address] [facility] [address] Performing Lab: [facility] [address] [facility] [address] [place], [address] [facility] [address] MALARIA/BABESIA EXAM Negative Negative Feb 07, 2022 [facility] CORA SCREEN/TITER Specimen Type: SERUM 01:43 PM [place] [facility] No comment enter ed. Ordering Provid er: DIMITRI SCRUGGS Report Released Date/Time: Feb 07, 2022 01:29 PM Reporting Lab: [facility] [place] [facility] [address] [facility] [address] Performing Lab: [facility] [address] [facility] [address] CORA SCREEN NEG NEG <1:40 Feb 07, 2022 01:43 [facility] VITAMIN B12 Specimen Typ e: SERUM PM [place] [facility] No comment enter ed. Ordering Provid er: DIMITRI SCRUGGS Report Released Date/Time: Feb 07, 2022 07:49 AM Reporting Lab: [facility] [address] [facility] [address] Performing Lab: [facility] [address] [facility] [address] VITAMIN B12 [phone] Feb 07, 2022 [place] [facility] SED RATE, AUTOMATED Specimen Ty pe: BLOOD 01:43 PM [facility] No comment enter ed. Ordering Provid er: DIMITRI SCRUGGS Report Released Date/Time: Feb 07, 2022 01:18 PM Reporting Lab: [facility] [address] [address] Performing Lab: [facility] [address] [facility] [address] SED RATE, AUTOMATED 9 0-15 Feb 07, 2022 [place] [facility] URINALYSIS CLEAN Specimen Type: URINE 01:43 PM [facility] No comment enter ed. Ordering Provid er: DIMITRI SCRUGGS Report Released Date/Time: Feb 07, 2022 07:50 AM Reporting Lab: [facility] [address] [facility] [address] Performing Lab: [facility] [address] [facility] [address] UA COLOR Yellow Yellow UA APPEARANCE Clear Clear UA GLUCOSE Negative Negative UA KETONES Negative Neg UA BLOOD Negative Neg UA PROTEIN Negative Neg UA NITRITE Negative Neg UA BILIRUBIN Negative Neg UA SPECIFIC GRAVITY 1.017 1.016-1.02 2 UA pH 6.0 5.0-9.0 UA UROBILINOGEN <2.0 <2.0 UA LEUKOCYTE ESTERASE Negative Neg Feb 07, 2022 [place] [facility] CBC AND DIFF Specimen Type: BLOOD 01:43 PM [facility] (AUTO) No comment enter ed. Ordering Provid er: DIMITRI SCRUGGS Report Released Date/Time: Feb 07, 2022 07:49 AM Reporting Lab: [facility] [place] [facility] [address] [facility] [address] Performing Lab: [facility] [place] [facility] [address] [facility] [address] WBC 6.22 4.50-11.00 RBC 5.24 4.23-5.66 HGB 15.7 12.8-17 HCT 44.8 39.2-50.4 MCV 85.5 82-99 MCHC 35.0 30.8-35.1 PLT 390 H 140-360 RDW-CV 11.4 L 12.0-16.0 Kaufman, Abs 0.46 0.30-1.10 MCH 30.0 26.2-32.6 Neut % 60.2 Lymph % 30.1 Kaufman % 7.4 Eos % 1.1 Baso % 0.6 Neut, Abs 3.74 2.20-7.60 Lymph, Abs 1.87 1.00-3.20 Eos, Abs 0.07 0.03-0.44 Baso, Abs 0.04 0.01-0.13 Immature Gran % 0.6 Immature Gran, Abs 0.04 0.00-0.06 Jan 30, 2022 11:25 [facility] THYROID TOTAL T4 Specimen Ty pe: SERUM AM [facility] No comment enter ed. Ordering Provid er: YINA HAGAN Report Released Date/Time: Jan 30, 2022 10:32 AM Reporting Lab: [facility] [place] [facility] [address] [facility] [address] Performing Lab: [facility] [place] [facility] [address] [facility] [address] THYROID TOTAL T4 8.86 4.5-12.0 Jan 30, 2022 [facility] TESTOSTERONE, TOTAL Specimen Ty pe: SERUM 11:25 AM [facility] No comment enter ed. Ordering Provid er: YINA HAGAN Report Released Date/Time: Jan 30, 2022 10:32 AM Reporting Lab: [facility] [place] [facility] [address] [facility] [address] Performing Lab: [facility] [address] [facility] [address] TESTOSTERONE, TOTAL 525.91 220.00-892 .00 Jan 30, 2022 [facility] HEMOGLOBIN A1C Specimen Type: BLOOD 11:25 AM [facility] PANEL Comment: Values obtained from A1C measurements can vary. For typical A1C assays, a reported value of 7.0 could actually be between 6.72 and 7.28 if measured by a reference method. A reported value of 9 .0 could actuall y be between 8.73 and 9.27. Ref: http://www.ngsp.org/CAPdata.asp Ordering Provid er: YINA HAGAN Report Released Date/Time: Jan 30, 2022 10:32 AM Reporting Lab: [facility] [address] [facility] [address] Performing Lab: [address] [address] HEMOGLOBIN A1C 4.6 4.0-5.6 Jan 30, 2022 11:25 [facility] LIVER FUNCTION Specimen Typ e: SERUM AM [facility] No comment enter ed. Ordering Provid er: YINA HAGAN Report Released Date/Time: Jan 30, 2022 10:32 AM Reporting Lab: [facility] [address] [facility] [address] Performing Lab: [facility] [address] [facility] [address] PROTEIN,TOTAL 7.2 6.0-8.3 ALBUMIN 4.0 3.5-5.0 ALKALINE PHOSPHATASE 57 40-150 AST 37 H 5-34 ALT 36 <6-55 BILIRUBIN, TOTAL 0.9 0.2-1.2 Jan 30, 2022 11:25 [facility] CBC AND DIFF Specimen Typ e: BLOOD AM [facility] ([facility] No comment enter ed. Ordering Provid er: YINA HAGAN Report Released Date/Time: Jan 30, 2022 10:32 AM Reporting Lab: [facility] [address] [facility] [address] Performing Lab: [facility] [place] [facility] [address] [facility] [address] WBC 2.65 L 4.50-11.00 RBC 5.29 4.23-5.66 [...] 2022 10:32 AM Reporting Lab: [facility] [place] [facility] [address] [facility] [address] Performing Lab: [facility] [place] [facility] [address] [facility] [address] CHOLESTEROL 167 <7-199 TRIGLYCERIDE 112 0-150 LDL calculated 108 0-129 CHOL/HDL 4.5 HDL CHOLESTEROL 37 L 40-60 Jan 30, 2022 [facility] BASIC METABOLIC PANEL Specimen Type: SERUM 11:25 AM [place] [facility] (fasting) No comment enter ed. Ordering Provid er: YINA HAGAN Report Released Date/Time: Jan 30, 2022 10:32 AM Reporting Lab: [facility] [place] [facility] [address] [facility] [address] Performing Lab: [facility] [place] [facility] [address] [facility] [address] UREA NITROGEN 13 7-25 GLUCOSE 102 H 65-100 SODIUM 135 135-145 POTASSIUM 4.4 3.5-5.0 CHLORIDE 100 100-110 CO2 27 20-30 CREATININE, Serum 1.35 0.50-1.40 eGFR(CKD-EPI 2020) 72 >60 Jan 30, 2022 11:25 AM [facility] [place] TSH Specimen Type: SERUM HCS No comment enter ed. Ordering Provid er: YINA HAGAN Report Released Date/Time: Jan 30, 2022 10:32 AM Reporting Lab: [facility] [place] [facility] [address] [facility] [address] Performing Lab: [facility] [place] [facility] [address] [facility] [address] TSH 0.82 0.35-5.00 Jan 30, 2022 11:25 [facility] [place] VITAMIN B12 S pecimen Type: SERUM AM [facility] No comment enter ed. Ordering Provid er: YINA HAGAN Report Released Date/Time: Jan 30, 2022 10:32 AM Reporting Lab: [facility] [place] [facility] [address] [facility] [address] Performing Lab: [facility] [place] [facility] [address] [facility] [address] VITAMIN B12 354 200-900 Jan 30, 2022 11:25 [facility] VITAMIN D (25-OH) Specimen T ype: SERUM AM [place] [facility] No comment enter ed. Ordering Provid er: YINA HAGAN Report Released Date/Time: Jan 30, 2022 10:32 AM Reporting Lab: [facility] [place] [facility] [address] [facility] [address] Performing Lab: [facility] [place] [facility] [address] [facility] [address] VITAMIN D (25-OH) 38 20-50 Jan 30, 2022 [facility] MICROSCOPIC AUTOMATED, Specimen Type: URINE 11:25 AM [facility] URINE No comment enter ed. Ordering Provid er: YINA HAGAN Report Released Date/Time: Jan 30, 2022 10:32 AM Reporting Lab: [facility] [place] [facility] [address] [facility] [address] Performing Lab: [facility] [place] [facility] [address] [facility] [address] UA WBC 0-5 0-5 UA MUCUS FEW Trace UA RBC 3-5 0-3 Jan 30, 2022 [facility] DIFFERENTIAL, MANUAL Specimen T ype: BLOOD 11:25 AM [facility] Comment: Giant platelets present. SENT FOR PATHOLOGY REVIEW Ordering Provid er: YINA HAGAN Report Released Date/Time: Jan 30, 2022 10:32 AM Reporting Lab: [facility] [address] [facility] [address] Performing Lab: [facility] [address] [facility] [address] SEGS 47 L 48-78 BANDS 5 0-10 LYMPHS 16 10-55 MONOS 23 H 2-12 VARIANT LYMPHOCYTES 5 0-6 OTHER/CELL 4 Jan 30, 2022 11:25 [facility] URINALYSIS S pecimen Type: URINE AM [facility] No comment enter ed. Ordering Provid er: YINA HAGAN Report Released Date/Time: Jan 30, 2022 10:32 AM Reporting Lab: [facility] [address] [facility] [address] Performing Lab: [facility] [address] [facility] [address] UA COLOR Yellow Yellow UA APPEARANCE Clear Clear UA GLUCOSE Negative Negative UA KETONES Negative Neg UA BLOOD Moderate Neg UA PROTEIN 30 Neg UA NITRITE Negative Neg UA BILIRUBIN Negative Neg UA SPECIFIC GRAVITY 1.027 H 1.016-1.02 2 UA pH 5.0 5.0-9.0 UA UROBILINOGEN <2.0 <2.0 UA LEUKOCYTE ESTERASE Negative Neg Jan [facility] LYME Specimen Type: SERUM 14, [facility] SEROLOGY Comment: The [facility] SEROLOGY PANEL was performed using the FDA-approved Demetrius YINA Borrelia burdorferi modified two-tier test system. This modified methodology uses a second EIA in place of a western imm 2021 [place] PANEL unoblot assay, [facility] the FDA has determined is substantially equivalent to or better than standard two-tier testing using western blot. Supplemental testing with a second EIA meets CDC guidelines for 11:25 [facility] Lyme disease aren ting. Performance characteristics of the panel were validated at the [place] [facility]. Results are considered [...] and local health departments, if applicable. The [place] State Form U RL is: http://www.ct.gov/dph/dru/dph/infectious_diseases/pdf_forms_/bd71_kyxu.pdf Ordering Provid er: YINA HAGAN Report Released Date/Time: Feb 03, 2022 12:51 PM Reporting Lab: [place] [facility] [place] [facility] [address] [facility] [address] Performing Lab: [facility] [place] [facility] [address] [facility] [address] TIER 1 LYME SCREENING EIA Negative Nega tive LYME AB FINAL INTERPRETATION Negative N egative Jan 30, 2022 11:25 [place] [facility] SMEAR CONSULT ([facility]) Specimen Type: BLOOD AM [place] [facility] Comment: SEE [id number] Ordering Provid er: YINA HAGAN Report Released Date/Time: Jan 30, 2022 12:51 PM Reporting Lab: [place] [facility] [place] [facility] [address] [facility] [address] Performing Lab: [place] [facility] [place] [facility] [facility] [address] [facility] [id number] SMEAR CONSULT ([facility]) comment Social History: Smoking Status (Most current) and Tobacco Use (All prior to encounter date) This section includes the most current, and the historical, smoking and tobacco-related health factors from the [place] facility where the Encounter took place.Current Smoking Status This section includes the most current smoking, or tobacco-related health factor, from the [place] facility where the Encounter took place. Date/Time Current Smoking Status Comment Facility May 23, 2021 02:30 PM VA-TOBACCO NEVER USED [place] [facility] Encounter Notes: All associated encounter notes This section contains the clinical notes associated to the Encounter. Date/Time Encounter Note(s) Provider Source Feb 10, 2022 01:30 PRIMARY CARE NURSE PRACTITIONER OUTPATIE NT NOTE: YINA HAGAN [facility] LOCAL TITLE: NURSE PRACTITIONER OUTPATIENT NOTE [facility] STANDARD TITLE: PRIMARY CARE NURSE PRACTITIONER OUTPATIENT NOTE DATE OF NOTE: FEB 10, 2022@13:30 ENTRY DATE: FEB 10, 2022@13:30:31 AUTHOR: YINA HAGAN EXP COSIGNER: URGENCY: STATUS: COMPLETED Chief complaint:Pt is a 31 who comes in for follow up of medical problems as noted below. HPI: Rash is still present but improved since st arting the prednisone. He has been taking it in the evening. Areas have faded. Rash is not as itchy. He is still taking his doxycycline that he was discharged from [facility] on. No more fevers or headaches. States having more lower back pain lately and costochondritis, which is worse with activity. PMH: Active problems - Computerized Problem List is t he source for the followin. Pruritic rash 2. Bilateral shoulder joint pain 3. 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 Low back pain X-RAY, L-Spine 2012: some Scol iosis 7. Benign hypertension US, Renal JUN 01: +Benig n Cysts R Side; None L Side 8. Posttraumatic stress disorder (SNOM[place] [id number]) updated. Allergies: Patient has answered NKA The [...] of systems: RESP denies SOB, cough CV denies CP, LL Edema On examination: 114/70 (02/07/2022 12:49) 97.5 F [36.4 C] (02/07/2022 12:49) 16 (02/07/2022 12:49) 81 (02/07/2022 12:49) 5 (02/07/2022 12:49) BMI: 26.8 176 lb [79.83 kg] (02/07/2022 12:49) pt is alert and oriented x4. NAD. NECK: supple, no JVD, lymph nodes not palpable CVS: regular rate and rhythm normal S1S2 no S3 o r Murmur Lungs: clear to auscultation throughout DERM: Diffuse rash light pink- underarms, upper legs Get up and go normal without assistive device. Future Clinic Visits 02/10/2022 13:45 CWM/NO/SICK CALL [facility] 02/24/2022 15:30 CWM/NO/TH/VVC/MHC/NARCISO 04/11/2022 08:45 CWM/NO/DENTAL/DMD2 AM 08/28/2022 09:30 CWM/NO/OPTOMETRY/MERHAR All diagnostics from past month were reviewed wi th patient. Assessment/plan: Systemic rash: Continue pred nisone 40 mg daily x 7 days. Advised patient to take in the morning as prednisone can interfere with sleep. Will call patient when his test results come in. Low back pain/costochondriti s: Methocarbamol 500 mg TID PRN. muscle relaxer can cause dizziness, drowsiness, nausea; do not take with other meds that cause drowsiness, do not drive or operate machinery while taking this medication; verbalized understanding and agrees. Medication Reconciliation: Outpatient: Has the patient been [...] provider. Allergies/ADRs (Tool #5) FACILITY ALLERGY/ADR -------- [facility] D NO KNOWN ALLERGIES [facility] No Known Allergi [...] of VA prescriptions disp ensed from another VA or [facility] facility (remote) is limited to active outp atient prescription entries matched to National Drug File at the [facility] site and may not include some items such as investigational drugs, compo unds, etc. NOT INCLUDED IN THIS LIST: Medications self-ent ered by the patient into personal health records (i.e. [facility]) ar e NOT included in this list. Non-VA medications documented outside thi s VA, remote inpatient orders (regardless of status) and remote clinic medications are NOT included in this list. The patient and provider must always discuss medications the patient is taking, regardless o f where the medication was dispensed or obtained. OUTPT BUPROPION 150MG 24HR XL TAB (ONCE DAILY) (Status = Discontinued) TAKE THREE TABLETS BY MOUTH EVERY MORNING FOR D EPRESSION/ANXIETY DOSE INCREASE Rx# [id number] Last Released: 12/21/21 Qty/Days Supp ly: 270/90 Rx Expiration Date: 12/20/22 Refills Remainin OUTPT BUPROPION 150MG 24HR XL TAB (ONCE DAILY) (Status = Active) TAKE THREE TABLETS BY MOUTH EVERY MORNING FOR D EPRESSION/ANXIETY DOSE INCREASE Rx# [id number] Last Released: 01/25/22 Qty/Days Supp ly: 90/30 Rx Expiration Date: 01/24/23 Refills Remainin OUTPT BUPROPION HCL 150MG 12HR SA TAB (Status = Discontinued) TAKE ONE TABLET BY MOUTH TWICE DAILY FOR DEPRES PHANI AND ANXIETY. DOSE INCREASE. Rx# [id number] Last Released: 09/19/21 Qty/Days Supp ly: 180/90 Rx Expiration Date: 09/17/22 Refills Remainin OUTPT BUPROPION HCL 300MG 24HR SA TAB (Status = Discontinued) TAKE ONE TABLET BY MOUTH EVERY MORNING FOR DEPR ESSION/ANXIETY Rx# [id number] Last Released: 11/14/21 Qty/Days Sup ply: 90/90 Rx Expiration Date: 11/13/22 Refills Remainin OUTPT CARBOXYMETHYLCELLULOSE 0.5% OPH SOLN (Sta tus = Active) INSTILL 1 DROP INTO EACH EYE FOUR TIMES A DAY Rx# [id number] Last Released: 01/08/22 Qty/Days Sup ply: 15 Rx Expiration Date: 07/12/22 Refills Remainin OUTPT ESCITALOPRAM OXALATE 20MG TAB (Status = D iscontinued) TAKE ONE TABLET BY MOUTH EVERY MORNING FOR MOOD /DEPRESSION Rx# [id number] Last Released: 09/19/21 Qty/Days Supp ly: Rx Expiration Date: 09/17/22 Refills Remainin OUTPT ESCITALOPRAM OXALATE 20MG TAB (Status = A ctive) TAKE ONE TABLET BY MOUTH EVERY MORNING FOR MOOD /DEPRESSION Rx# [id number] Last Released: 01/08/22 Qty/Days Sup ply: 30 Rx Expiration Date: 12/20/22 Refills Remainin OUTPT GABAPENTIN 400MG CAP (Status = Discontinu ed) TAKE ONE CAPSULE BY MOUTH FOUR TIMES A DAY FOR ANXIETY. Rx# [id number] Last Released: 09/19/21 Qty/Days Supp ly: 120/30 Rx Expiration Date: 09/17/22 Refills Remainin OUTPT GABAPENTIN 400MG CAP (Status = Active) TAKE ONE CAPSULE BY MOUTH FOUR TIMES A DAY FOR ANXIETY. Rx# [id number] Last Released: 01/08/22 Qty/Days Sup ply: 120/30 Rx Expiration Date: 12/20/22 Refills Remainin OUTPT LORAZEPAM 1MG TAB (Status = Active) TAKE ONE TABLET BY MOUTH ONCE DAILY NEEDED F OR ANXIETY/NERVES Rx# [id number] Last Released: 01/08/22 Qty/Days Sup ply: 30 Rx Expiration Date: 05/15/22 Refills Remainin OUTPT METHOCARBAMOL 500MG TAB (Status = Active) TAKE ONE TABLET BY MOUTH THREE TIMES DAILY N EEDED Rx# [id number] Last Released: 02/10/22 Qty/Days Sup ply: 30/30 Rx Expiration Date: 03/12/22 Refills Remainin OUTPT PRAZOSIN HCL 2MG CAP (Status = Discontinu ed) TAKE FOUR CAPSULES BY MOUTH AT BEDTIME - OFF LA BEL USE FOR PTSD SYMPTOMS. DOSE INCREASE FROM 6 MG. Rx# [id number] Last Released: 09/19/21 Qty/Days Supp ly: 120/30 Rx Expiration Date: 09/17/22 Refills Remainin OUTPT PRAZOSIN HCL 2MG CAP (Status = Active) TAKE FOUR CAPSULES BY MOUTH AT BEDTIME - OFF LA BEL USE FOR PTSD SYMPTOMS. DOSE INCREASE FROM 6 MG. Rx# [id number] Last Released: 01/08/22 Qty/Days Sup ply: 120/30 Rx Expiration Date: 12/20/22 Refills Remainin OUTPT PREDNISONE 20MG TAB (Status = Active) TAKE TWO TABLETS BY MOUTH ONCE DAILY Rx# [id number] Last Released: 02/07/22 Qty/Days Sup ply: 14 Rx Expiration Date: 03/09/22 Refills Remainin OUTPT SODIUM FLUORIDE 1.1% TOOTHPASTE (Status = Active) BRUSH SMALL AMOUNT TO TEETH AT BEDTIME DIREC GINA FOR TWO MINUTES, IN PLACE OF YOUR REGULAR TOOTHPASTE. A FTER USE, SPIT OUT. FOR PREVENTION OF DENTAL CARIES AND SENSIT IVITY. Rx# [id number] Last Released: 01/08/22 Qty/Days Sup ply: 100/60 Rx Expiration Date: 08/14/22 Refills Remainin OUTPT TRAZODONE HCL 100MG TAB (Status = Discont inued) TAKE ONE AND ONE-HALF TABLETS BY MOUTH AT BEDTI ME NEEDED FOR SLEEP Rx# [id number] Last Released: 09/19/21 Qty/Days Supp ly: 45/30 Rx Expiration Date: 09/17/22 Refills Remainin OUTPT TRAZODONE HCL 100MG TAB (Status = Active) TAKE ONE AND ONE-HALF TABLETS BY MOUTH AT BEDTI ME NEEDED FOR SLEEP Rx# [id number] Last Released: 01/08/22 Qty/Days Sup ply: 45/30 Rx Expiration Date: 12/20/22 Refills Remainin SUPPLIES /ivelisse/ YINA HAGAN SILVERIO-MICHELLE NURSE PRACTITIONER Signed: 02/10/2022 14:17
--- OUTSIDE RECORDS SUMMARY | 2022-04-18 10:20 | XMS_ITS ---
:1990 Author Organization Department of [facility] rs Address [address] [place] [address] Support Name Relationship Address Phone TETE TRAN Unavailable [address] [facility] [phone] [place] [address] THOMAS MONTOYA Unavailable [address] [place] [address] Insurance Providers: All historical and current Section [...] Telephone Name to Policy Number Ojeda [facility] Aug 03, [id number] [phone] ALIADarlyn CowanTX PATIENT BEE GIMENEZ [id number] STEPHANIE JOHNSON [facility] ORGANIZ E DEPT Selected Encounter This section includes the information on record at PR for the Encounter. Date/Time Encounter Type Encounter Reason Provider Source Description Feb 10, 2022 OFFICE O/P EST PRIMARY ICD-10-CM Z71.9 LEONARDO CASTILLO 01:15 PM MINIMAL PROB CARE/MEDICINE Counseling, SSA unspecified with Provider Comments: Counseling,Unspec IHE Encounter Template Text not used by PR Assessments - Encounter Diagnoses This section includes the primary and secondary diagnoses documented for the Encounter. Date/Time Primary/Secondary Diagnosis Name Provider Source Diagnosis Feb 10, 2022 PRIMARY Counseling, LEONARDO CASTILLO PR CN[facility]L WSTR N 01:36 PM unspecified SSA [place] [facility] Plan of Treatment: Future Appointments (+ 6 [...] 12, 2022 09:00 AM AMBULATORY - PSYCHIATRY PR [facility] WSTRN [place] [facility] Feb 14, 2022 12:00 PM AMBULATORY - PSYCHIATRY [place] [facility] [facility] Feb 25, 2022 01:00 PM AMBULATORY - PSYCHIATRY [facility] [place] [facility] Feb 27, 2022 02:00 PM AMBULATORY - PSYCHIATRY [facility] [facility] Mar 17, 2022 03:00 PM AMBULATORY - PSYCHIATRY PR CNTRL WSTRN [place] [facility] Mar 28, 2022 09:00 AM AMBULATORY - PSYCHIATRY PR CN[facility]L [place]STRN [place] [facility] Apr 17, 2022 01:00 PM AMBULATORY - NONE [place] [facility] [place]STR[place] [facility] Apr 25, 2022 09:00 AM AMBULATORY - PSYCHIATRY PR CNTRL WSTRN [place] [facility] May 09, 2022 09:00 AM AMBULATORY - PSYCHIATRY PR CNTRL WSTRN [place] [facility] May 23, 2022 09:00 AM AMBULATORY - PSYCHIATRY PR CNTRL WSTRN [place] [facility] Jul 17, 2022 08:30 AM AMBULATORY - NONE [place] [facility] [place] [facility] Lab Results: +/- 30 days of the encounter This section includes the Chemistry and Hematology Lab Results on record with PR for the patient. Radiology Reports and Pathology Reports are provided separately, in subsequent sections.Lab Results This section contains the Chemistry/Hematology Results that were resulted 30 days before or 30 daysafter the date of the Encounter. Date/Time Source Result Type Result - Unit Interpretation Reference Range Comment Feb 07, 2022 PR [facility] WSTRN BRUCELLA ANTIBODY, Specimen Typ e: SERUM 01:43 PM [place] [facility] AGGLUTINATION Comment: REFERE NCE RANGE: <1:80 [...] performance characteri stics have been determined by [facility]. It has not been cleared or approved by FDA. This assay has been validated pursuant to the CLIA regulations and is used for clinical purposes. Test perfor med by [facility] [address] [place] [address] Medical Videographer: Alejandrina Quick MD,PHD,[place]IE Test performed at [place], [place]. Ordering Provid er: DIMITRI SCRUGGS Report Released Date/Time: Feb 07, 2022 01:27 PM Reporting Lab: [facility] [address] [facility] [address] Performing Lab: [facility] Orange [facility] [address] [facility] [facility], [address] [facility] [address] BRUCELLA ANTIBODY, AGGLUTINATION <1:80 Feb 07, 2022 [facility] BABESIA MICROTI Specimen Type: SERUM 01:43 PM [facility] ANTIBODIES (IgG, Comment: REFER ENCE [...] analytical performance characteristics have been determined by [facility] [place], [place]. It has not been cleared or approved by the U.S. Food and Drug A dministration. T his assay has been validated pursuant to the CLIA regulations and is used for clinical purposes. Test Performed by [facility], [facility] [place], [address] [facility] [address]ijit [place], [place] Ronald Abdul M.D., Ph.D., Director of Laboratories , CLIA [id number] TEST PERFORMED AT: , Ordering Provid er: DIMITRI SCRUGGS Report Released Date/Time: Feb 07, 2022 01:29 PM Reporting Lab: [facility] [address] [facility] [address] Performing Lab: [facility] [address] [place], [address] [facility] [address] Babesia microti IgG <1:64 SEE BELOW Babesia microti IgM <1:20 SEE BELOW BABESIA MICROTI AB INTER SEE NOTE Feb 07, 2022 [facility] ANAPLASMA AND Specimen Type: SERUM 01:43 PM [facility] EHRLICHIA AB PANEL Comment: REF [...] performance c haracteristics have been determined by [place]. It has not been cleared or [...] analytical performance characteristics have been determined by [place]. It has not been cleared or approved by the U.S. Food and Drug Administration. This assay has been validated pursuant to the CLIA regulations and is used for clinical purposes. Test Performed by [facility], [email or web address], [address] [place], [place] Ronald Abdul M.D., Ph.D., Director of Laboratories , CLIA [id number] TEST PERFORMED AT: , Ordering Provid er: DIMITRI SCRUGGS Report Released Date/Time: Feb 07, 2022 01:33 PM Reporting Lab: [facility] [address] [facility] [address] Performing Lab: [facility] [address] [facility], [address] [place] [address] E. chaffeensis Ab IgG <1:64 SEE BELO W E. chaffeensis Ab IgM <1:20 SEE BELO W A.phagocytophilum Ab IgG <1:64 SEE B ELOW A.phagocytophilum Ab IgM <1:20 SEE B ELOW EHRLICHIA CHAFFEENSIS AB INTER SEE NOTE A. phagocytophilum inter SEE NOTE Feb 07, 2022 [facility] BABESIA MICROTI, Specimen Type: BLOOD 01:43 PM [facility] DNA PCR(WHV) Comment: The an alytical performance characteristics of this test have been determined by [facility]. It has not been cleared by the FDA. Ordering Provid er: DIMITRI SCRUGGS Report Released Date/Time: Feb 07, 2022 01:29 PM Reporting Lab: [facility] [address] [facility] [address] Performing Lab: [facility] [address] [facility] [address] BABESIA MICROTI, DNA PCR(V) Not Detected Not Detected Feb 07, 2022 [facility] RICKETTSIA ANTIBODY Specimen Ty pe: SERUM 01:43 PM [facility] PANEL (Q) Comment: Test P erformed by [facility], [facility], [address] [place], [place] Ronald Abdul M.D., Ph.D., Director of Laboratories , CLIA [id number] TEST PERFORMED AT: , Ordering Provid er: DIMITRI SCRUGGS Report Released Date/Time: Feb 07, 2022 01:33 PM Reporting Lab: [facility] [address] [facility] [address] Performing Lab: [facility] [address] [facility] [address] [place], [address] [facility] [address] RMSF IgG Not Detected Not Detected RMSF IgM Not Detected Not Detected R. typhi IgM Not Detected Not Detected Jose [facility] LYME Specimen Type: SERUM 22, WSTRN SEROLOGY Comment: The re sults are supportive evidence for the presence of antibodies and exposure to Borrelia burgdorferi. The LYME SEROLOGY PANEL was performed using the FDA-approved Demetrius YINA Borrelia burdor 2021 [facility] PANEL feri modified tw o-tier test system. This modified methodology uses a second EIA in place of a western immunoblot assay, which the FDA has determined is substantially equivalent to or better than stand 01:43 [facility] damaris two-tier aren ting using western blot. Supplemental testing with a second EIA meets CDC guidelines for Lyme disease testing. Performance characteristics of the panel were validated at the [facility]. Results are considered [...] applicable. The [place] State Form URL is: http://www.[place].gov/dph/dru/dph/infectious_diseases/pdf_forms_/zk44_bsmf.pdf Ordering Provid er: DIMITRI SCRUGGS Report Released Date/Time: Feb 07, 2022 07:49 AM Reporting Lab: [place] WhirlpoolR Underground CellarTRN [place] [facility] [address] [facility] [address] Performing Lab: [facility] [place] [facility] [address] [facility] [address] TIER 1 LYME SCREENING EIA Presumptive Positive Negative LYME AB FINAL INTERPRETATION POSITIVE HH N egative TIER 2 LYME EIA,IgG Negative Negative TIER 2 LYME EIA,IgM POSITIVE HH Negative Feb 07, 2022 01:43 PM PR CNTRL WSTRN [place] FOLATE Specimen Type: SERUM HCS No comment enter ed. Ordering Provid er: DIMITRI SCRUGGS Report Released Date/Time: Feb 07, 2022 07:49 AM Reporting Lab: [facility] [place] [facility] [address] [facility] [address] Performing Lab: [facility] W[facility]N [place] [facility] [address] [facility] [address] FOLATE 12.99 >5.2 Feb 07, 2022 PR CNTRL WSTRN C REACTIVE PROTEIN Specimen Typ e: SERUM 01:43 PM [facility] ([facility]) Comment: Refere nce range changed on 01/07/11 [facility] reference ranges for ages >17 [...] Feb 07, 2022 01:18 PM Reporting Lab: [facility] [address] [facility] [address] Performing Lab: [facility] [address] [facility] [address] C REACTIVE PROTEIN (CRPH) 2.32 See eval. Feb 07, 2022 [facility] CORA SCREEN/TITER Specimen Type: SERUM 01:43 PM [facility] No comment enter ed. Ordering Provid er: DIMITRI SCRUGGS Report Released Date/Time: Feb 07, 2022 01:29 PM Reporting Lab: [facility] [address] [facility] [address] Performing Lab: [facility] [address] [facility] [address] CORA SCREEN NEG NEG <1:40 Feb 07, 2022 [facility] MALARIA/BABESIA EXAM Specimen T ype: BLOOD 01:43 PM [facility] Comment: Due to the cyclical shed rates of these parasites, one negative specimen does not rule out the possibility of a parasitic infection. Obtain specimens at 6-hour intervals for 36 hours for a com prehensive exami nation. Test Performed by [facility], [facility], [address] [place] [address] Ronald Abdul M.D., Ph.D., Director of Laboratories , [place] [id number] TEST PERFORMED AT: , Ordering Provid er: DIMITRI SCRUGGS Report Released Date/Time: Feb 07, 2022 01:29 PM Reporting Lab: [facility] [address] [facility] [address] Performing Lab: [facility] [address] [place], [address] [place] [address] MALARIA/BABESIA EXAM Negative Negative Feb 07, 2022 01:43 [place] [facility] VITAMIN B12 Specimen Typ e: SERUM PM [facility] No comment enter ed. Ordering Provid er: DIMITRI SCRUGGS Report Released Date/Time: Feb 07, 2022 07:49 AM Reporting Lab: [facility] [address] [facility] [address] Performing Lab: [facility] [address] [facility] [address] VITAMIN B12 593 200-900 Feb 07, 2022 PR CNTRL WSTRN SED RATE, AUTOMATED Specimen Ty pe: BLOOD 01:43 PM [facility] No comment enter ed. Ordering Provid er: DIMITRI SCRUGGS Report Released Date/Time: Feb 07, 2022 01:18 PM Reporting Lab: [facility] [address] [facility] [address] Performing Lab: [facility] [address] [facility] [address] SED RATE, AUTOMATED 9 0-15 Feb 07, 2022 [facility] URINALYSIS CLEAN Specimen Type: URINE 01:43 PM [facility] CATCH No comment enter ed. Ordering Provid er: DIMITRI SCRUGGS Report Released Date/Time: Feb 07, 2022 07:50 AM Reporting Lab: [facility] [address] [facility] [address] Performing Lab: [facility] [address] [facility] [address] UA COLOR Yellow Yellow UA APPEARANCE Clear Clear UA GLUCOSE Negative Negative UA KETONES Negative Neg UA BLOOD Negative Neg UA PROTEIN Negative Neg UA NITRITE Negative Neg UA BILIRUBIN Negative Neg UA SPECIFIC GRAVITY 1.017 1.016-1.02 2 UA pH 6.0 5.0-9.0 UA UROBILINOGEN <2.0 <2.0 UA LEUKOCYTE ESTERASE Negative Neg Feb 07, 2022 PR CN[facility]L WSTRN CBC AND DIFF Specimen Type: BLOOD 01:43 PM [facility] (AUTO) No comment enter ed. Ordering Provid er: DIMITRI SCRUGGS Report Released Date/Time: Feb 07, 2022 07:49 AM Reporting Lab: [facility] [place] [facility] [address] [facility] [address] Performing Lab: PR CNTRL WSTRN [place] [facility] [address] [facility] [address] WBC 6.22 4.50-11.00 RBC 5.24 4.23-5.66 HGB 15.7 12.8-17 HCT 44.8 39.2-50.4 MCV 85.5 82-99 MCHC 35.0 30.8-35.1 PLT 390 H 140-360 RDW-CV 11.4 L 12.0-16.0 [place], Abs 0.46 0.30-1.10 MCH 30.0 26.2-32.6 Neut % 60.2 Lymph % 30.1 [place] % 7.4 Eos % 1.1 Baso % 0.6 Neut, Abs 3.74 2.20-7.60 Lymph, Abs 1.87 1.00-3.20 Eos, Abs 0.07 0.03-0.44 Baso, Abs 0.04 0.01-0.13 Immature Gran % 0.6 Immature Gran, Abs 0.04 0.00-0.06 Jan 30, 2022 11:25 [facility] THYROID TOTAL T4 Specimen Ty pe: SERUM AM [place] [facility] No comment enter ed. Ordering Provid er: YINA HAGAN Report Released Date/Time: Jan 30, 2022 10:32 AM Reporting Lab: [facility] [place] [facility] [address] [facility] [address] Performing Lab: [facility] [place] [facility] [address] [facility] [address] THYROID TOTAL T4 8.86 4.5-12.0 Jan 30, 2022 [facility] TESTOSTERONE, TOTAL Specimen Ty pe: SERUM 11:25 AM [place] [facility] No comment enter ed. Ordering Provid er: YINA HAGAN Report Released Date/Time: Jan 30, 2022 10:32 AM Reporting Lab: [facility] [place] [facility] [address] [facility] [address] Performing Lab: [facility] [place] [facility] [address] [facility] [address] TESTOSTERONE, TOTAL 525.91 220.00-892 .00 Jan 30, 2022 [facility] HEMOGLOBIN A1C Specimen Type: BLOOD 11:25 AM [place] [facility] PANEL Comment: Values obtained from A1C measurements can vary. For typical A1C assays, a reported value of 7.0 could actually be between 6.72 and 7.28 if measured by a reference method. A reported value of 9 .0 could actuall y be between 8.73 and 9.27. Ref: http://www.ngsp.org/CAPdata.asp Ordering Provid er: YINA HAGAN Report Released Date/Time: Jan 30, 2022 10:32 AM Reporting Lab: [facility] [address] [facility] [address] Performing Lab: [facility]ENTERUSE[address] [address] HEMOGLOBIN A1C 4.6 4.0-5.6 Jan 30, 2022 11:25 [facility] LIPID PANEL FASTING Specimen Type: SERUM AM [place] [facility] No comment enter ed. Ordering Provid er: YINA HAGAN Report Released Date/Time: Jan 30, 2022 10:32 AM Reporting Lab: [facility] [address] [facility] [address] Performing Lab: [facility]ETS [facility] [address] [facility] [address] CHOLESTEROL 167 <7-199 TRIGLYCERIDE 112 0-150 LDL calculated 108 0-129 CHOL/HDL 4.5 HDL CHOLESTEROL 37 L 40-60 Jan 30, 2022 11:25 [facility] LIVER FUNCTION Specimen Typ e: SERUM AM [place] [facility] No comment enter ed. Ordering Provid er: YINA HAGAN Report Released Date/Time: Jan 30, 2022 10:32 AM Reporting Lab: [facility] [address] [facility] [address] Performing Lab: [facility]ENTERUSE[address] [address] PROTEIN,TOTAL 7.2 6.0-8.3 ALBUMIN 4.0 3.5-5.0 ALKALINE [...] [place] [facility] [address] [facility] [address] Performing Lab: [facility] [place] [facility] [address] [facility] [address] TSH 0.82 0.35-5.00 Jan 30, 2022 11:25 [facility] [place] VITAMIN B12 S pecimen Type: SERUM AM [facility] No comment enter ed. Ordering Provid er: YINA HAGAN Report Released Date/Time: Jan 30, 2022 10:32 AM Reporting Lab: [facility] [place] [facility] [address] [facility] [address] Performing Lab: [facility] [place] [facility] [address] [facility] [address] VITAMIN B12 354 200-900 Jan 30, 2022 11:25 [facility] VITAMIN D (25-[place]) Specimen T ype: SERUM AM [place] [facility] No comment enter ed. Ordering Provid er: YINA HAGAN Report Released Date/Time: Jan 30, 2022 10:32 AM Reporting Lab: [facility] [place] [facility] [address] [facility] [address] Performing Lab: [facility] [place] [facility] [address] [facility] [address] VITAMIN D (25-[place]) 38 20-50 Jan 30, 2022 11:25 [facility] CBC AND DIFF Specimen Typ e: BLOOD AM [place] [facility] (AUTO) No comment enter ed. Ordering Provid er: YINA HAGAN Report Released Date/Time: Jan 30, 2022 10:32 AM Reporting Lab: [facility] [place] [facility] [address] [facility] [address] Performing Lab: [facility] [place] [facility] [address] [facility] [address] WBC 2.65 L 4.50-11.00 RBC 5.29 4.23-5.66 HGB 15.7 12.8-17 HCT 46.2 39.2-50.4 MCV 87.3 82-99 MCHC 34.0 30.8-35.1 PLT 152 140-360 RDW-CV 11.5 L 12.0-16.0 MCH 29.7 26.2-32.6 Jan 30, 2022 [facility] BASIC METABOLIC PANEL Specimen Type: SERUM 11:25 AM [facility] (fasting) No comment enter ed. Ordering Provid er: YINA HAGAN Report Released Date/Time: Jan 30, 2022 10:32 AM Reporting Lab: [facility] [address] [facility] [address] Performing Lab: [facility] [address] [address] UREA NITROGEN 13 7-25 GLUCOSE 102 H 65-100 SODIUM 135 135-145 POTASSIUM 4.4 3.5-5.0 CHLORIDE 100 100-110 CO2 27 20-30 CREATININE, Serum 1.35 0.50-1.40 eGFR(CKD-EPI 2020) 72 >60 Jan 30, 2022 [facility] WSTRN MICROSCOPIC AUTOMATED, Specimen Type: URINE 11:25 AM [facility] URINE No comment enter ed. Ordering Provid er: YINA HAGAN Report Released Date/Time: Jan 30, 2022 10:32 AM Reporting Lab: [facility]USE[facility] [address] [facility] [address] Performing Lab: [facility]TR[facility]ENTERUSETS [facility] [address] [facility] [address] UA WBC 0-5 0-5 UA MUCUS FEW Trace UA RBC 3-5 0-3 Jan 30, 2022 [facility] W[facility]N DIFFERENTIAL, MANUAL Specimen T ype: BLOOD 11:25 AM [facility] Comment: Giant platelets present. SENT FOR PATHOLOGY REVIEW Ordering Provid er: YINA HAGAN Report Released Date/Time: Jan 30, 2022 10:32 AM Reporting Lab: [facility] [address] [facility] [address] Performing Lab: [facility] WSTRN [place] [facility] [address] [facility] [address] SEGS 47 L 48-78 BANDS 5 0-10 LYMPHS 16 10-55 MONOS 23 H 2-12 VARIANT LYMPHOCYTES 5 0-6 OTHER/CELL 4 Jan 30, 2022 11:25 [facility] W[facility]N [place] URINALYSIS S pecimen Type: URINE AM HCS No comment enter ed. Ordering Provid er: BENTLEYYINA Report Released Date/Time: Jan 30, 2022 10:32 AM Reporting Lab: [facility] WSN [facility] [address] [facility] [address] Performing Lab: [facility] [address] [facility] [address] UA COLOR Yellow Yellow UA APPEARANCE Clear Clear UA GLUCOSE Negative Negative UA KETONES Negative Neg UA BLOOD Moderate Neg UA PROTEIN 30 Neg UA NITRITE Negative Neg UA BILIRUBIN Negative Neg UA SPECIFIC GRAVITY 1.027 H 1.016-1.02 2 UA pH 5.0 5.0-9.0 UA UROBILINOGEN <2.0 <2.0 UA LEUKOCYTE ESTERASE Negative Neg Jan [facility] LYME Specimen Type: SERUM 14, WSTRN SEROLOGY Comment: The [facility] SEROLOGY PANEL was performed using the [...] second EIA meets CDC guidelines for 11:25 [facility] Lyme disease aren ting. Performance characteristics of the panel were validated at the [facility]. Results are considered [...] The [place] State Form U RL is: http://www.[place].gov/dph/dru/dph/infectious_diseases/pdf_forms_/oi45_rfsl.pdf Ordering Provid er: BENTLEYYINA Report Released Date/Time: Feb 03, 2022 12:51 PM Reporting Lab: [facility] CNTR WSTRN [place] [facility] [address] [facility] [address] Performing Lab: [facility] [place] [facility] [address] [facility] [id number] TIER 1 LYME SCREENING EIA Negative Nega tive LYME AB FINAL INTERPRETATION Negative N egative Jan 30, 2022 11:25 [facility]MEAR [facility]SULT ([facility]) Specimen Type: BLOOD AM [place] [facility] Comment: SEE [id number] Ordering Provid er: YINA HAGAN Report Released Date/Time: Jan 30, 2022 12:51 PM Reporting Lab: [facility] [place] [facility] [address] [facility] [address] Performing Lab: PR [facility] [place] [facility] [address] [facility] [address] SMEAR CONSULT ([facility]) comment Social History: Smoking Status (Most [...] 23, 2021 02:30 PM VA-TOBACCO NEVER USED PR C [facility] [place] [facility] Encounter Notes: All associated encounter notes This section contains the clinical notes associated to the Encounter. Date/Time Encounter Note(s) Provider Source Feb 10, 2022 01:29 PM PRIMARY CARE OUTPATIENT NOTE: ME GIORGI CASTILLO CNTRL [facility] LOCAL TITLE: AMBULATORY/OUTPATIENT CARE NOTE [facility] STANDARD TITLE: PRIMARY CARE OUTPATIENT NOTE DATE OF NOTE: FEB 10, 2022@13:29 ENTRY DATE: FEB 10, 2022@13:29:03 AUTHOR: TAE CASTILLO EXP COSIGNER: URGENCY: STATUS: COMPLETED AMBULATORY/OUTPATIENT CARE NOTE Has ADDENDA F: Follow Up D/A: Vet presents to clinic for follow up thursday visit. Vet seen on 02/07 by PCP for suspected lyme carditis. Reports rash is beginning to resolve, still has chest pressure with exertion but that seems to have lessened in intensity and incidence as well. Vet continues P rednisone and Doxy. Most lab studies have returned with exception of most tic k borne illness labs. R: Vet to see [place] Provider /ivelisse/ Tae Castillo MSN RN CNL Primary Care RN Signed: 02/10/2022 13:36 Receipt Acknowledged By: * AWAITING SIGNATURE * YINA HAGAN 02/10/2022 ADDENDUM STATUS: COMPLETED Fax [facility] ED visit 01/30 CC: Lyme Disease HPI: The patient, George Montoya,is a 31 y.o. ma le who presents for evaluation of Lyme Disease. The patient reports to the emergency department for the evaluation of fever, body aches, chest pain and rash. Patient reports starting on Thursday he felt very fatigued, initially was seen at urgent care who thought he might have a hernia in his right groin. He was referred to [facility]. They determined it was a lymph node, as well as swabb ed him for COVID and flu which were normal and discharged him. Starting y he started to have some chest pain. He reports that his intermitten t, substernally located and nonradiating. Currently he denies any pain. He d enies any associated shortness of breath, diaphoresis, palpitations, nausea or vomiting. He again went back to [facility] where they d id COVID, flu, troponin and chest x?ray and diagnosed him with costochondrit is. Starting today the patient started to have fever s as high as 102, he also has an intermittent headache, continues to have body aches and fatigue. He also woke up this morning and noticed a rash on his l egs with a larger area on his lower back. He does describe pulling a tick off of his right calf in November. He denies any nasal congestion, rhinorrhea, stiff n guicho, neck pain, shortness of breath, cough, nausea, vomiting, diarrhea, abdom inal pain or urinary symptoms. No history of IV drug use. No implanta ble devices. Patient has had 2 negative COVID swabs at this time. Labs completed include: BMP, Hepatic function, CBC, PT InR abnormal results listed below- Glucose 107 H C Reactive Protein 59/9 H WPC 3.15 L Monos 18.7 H Absolute Lymphs 0.59 L PT 13.8 H INR 1.2 H Other Labs: Blood Culture- no growth after 5 days Babesia Species PCR (Microti, Duncani and Diverg ens) Negative Farzana/Anaplasma PCR (Anaplasma, Ehrlichia, Ewi ngii, Muris) Negative Lyme Antibody IGG/IGM Negative A/P: 31-year-old male with past medical history significant for PTSD who presents to the emergency department for the treva luation of fever, fatigue, body aches, chest pain and new rash. Patient is febrile initial presentation at 102, however with otherwise stable vitals and well-appearing. History and physical as stated above. EKG reveals patient to be in normal sinus rhythm, no acute ST or T wave abnormalities to suggest i schemia. Labs were obtained to further evaluate. Lesion on patient's lower back is concerning for erythema migrans. Labs are grossly unremarkable. CBC reveals no le ukocytosis, no left shift, no signs of anemia, he is mildly leukopenic at 3.15 . BMP is without any electrolyte abnormalities and baseline kidney fu nction. LFTs are within normal limits no signs of hepatobiliary disease. Lipase is within normal is no signs of pancreatitis. Lactate is within norm al months at 1.18. Chest x- ray without any acute process. CRP is elevated a t five 9.9. Troponin is less than 6. Low concern for Lyme myocarditis. She has mild leukopenia along with history and e xam is concerning for Lyme disease. Tickborne studies are pending at this t rayna. Patient will be started on doxycycline. Discussed wearing additional sun screen while in diet doxycycline. Also discussed taking with a full g lass of water and remaining upright afterwards as well as not taking out armaan ry products. Discussed taking a pro biotic while on this. Recommend he follow- up with his PCP for reevaluation, he reports [facility]. Recommend he stay well-hydra christo and alternate between ibuprofen and Tylenol for his discomfort. Discus sed symptomatic treatment with the patient. Discussed return precautions. Patient verbalized understanding of the above plan and is in agreem ent with the above plan. The patient was discharged home in stable condition with return precautions. The case was discussed with my supervising physician Dr. Hardin who is in agreement with the above plan. /ivelisse/ Tae HELM RN CNL Primary Care RN Signed: 02/10/2022 13:47
--- OUTSIDE RECORDS SUMMARY | 2022-04-18 10:20 | XMS_ITS | Encounter Summary ---
:1990 Author Organization Department [facility] rs Address [address] [place] [address] Support Name Relationship Address Phone TETE TRAN Unavailable [address] [facility] [place] [address] THOMAS MONTOYA Unavailable [address] [place] [address] Insurance Providers: All historical and current Section [...] Telephone Name to Policy Number Ojeda [facility] Aug 03, [id number] [phone] ALIAROSINA Mane PATIENT BEE GIMENEZ [id number] STEPHANIE JOHNSON [facility] ORGANIZ E DEPT Selected Encounter This section includes the information on record at [place] for the Encounter. Date/Time Encounter Type Encounter Description Reason Provider Source Feb 10, 2022 01:14 Outpatient Encounter PRIMARY CARE/MEDICINE PM IHE Encounter Template Text not used by [place] Plan of Treatment: Future Appointments (+ 6 months) and Future Tests (+/- 45 days) The Plan of Treatment section includes future care activities for the patient from all [place] treatmentfacilities. This section includes future appointments and future orders which are active, pending orscheduled.Future Appointments This section includes appointments that were scheduled to occur 6 months from the date of the Encounter, up to a maximum of 20 appointments. The data comes from all [place] treatment facilities. Appointment Date/Time Appointment Type Appointment Facili ty Name Feb 12, 2022 09:00 AM AMBULATORY - PSYCHIATRY [facility] Feb 14, 2022 12:00 PM AMBULATORY [...] CNTRL [place] [facility] Lab Results: +/- 30 days of [...] Interpretation Reference Range Comment Feb 07, 2022 [place] CN[facility] W[facility]N BRUCELLA ANTIBODY, Specimen Typ e: SERUM 01:43 PM [place] [facility] AGGLUTINATION Comment: REFERE NCE RANGE: <1:80 [...] performance characteri stics have been determined by [facility]. It has not been cleared or approved by FDA. This assay has been validated pursuant to the CLIA regulations and is used for clinical purposes. Test perfor med by [employer] [facility] [address] [place] [address] Physician Chief Of Pathology: Alejandrina Quick MD,PHD,[place]IE Test performed at [place]. Ordering Provid er: DIMITRI SCRUGGS Report Released Date/Time: Feb 07, 2022 01:27 PM Reporting Lab: [facility] [address] [facility] [place] [place] [address] Performing Lab: [facility] [address], [address] [facility] [address] BRUCELLA ANTIBODY, AGGLUTINATION <1:80 Feb 07, 2022 [facility] BABESIA MICROTI Specimen Type: SERUM 01:43 PM [facility] ANTIBODIES (IgG, Comment: REFER ENCE RANGE: [...] analytical performance characteristics have been determined by [employer] [place], [place]. It has not been cleared or approved by the U.S. Food and Drug A dministration. T his assay has been validated pursuant to the CLIA regulations and is used for clinical purposes. Test Performed by [facility], [employer] [place], [address] [address], [place], [place] Ronald Abdul M.D., Ph.D., Director of Laboratories , CLIA [id number] TEST PERFORMED AT: , Ordering Provid er: DIMITRI SCRUGGS Report Released Date/Time: Feb 07, 2022 01:29 PM Reporting Lab: [facility] [address] [place] [address] Performing [facility]: [facility] [address], [address] [facility] [address] Babesia microti IgG <1:64 SEE BELOW Babesia microti IgM <1:20 SEE BELOW BABESIA MICROTI AB INTER SEE NOTE Feb 07, 2022 [facility] ANAPLASMA AND Specimen Type: SERUM 01:43 PM [facility] EHRLICHIA AB PANEL Comment: REF [...] performance c haracteristics have been determined by [facility]. It has not been cleared or [...] analytical performance characteristics have been determined by [facility]. It has not been cleared or approved by the U.S. Food and Drug Administration. This assay has been validated pursuant to the CLIA regulations and is used for clinical purposes. Test Performed by [facility], [address] [place], [place] [address], [place] Ronald Abdul M.D., Ph.D., Director of Laboratories , CLIA [id number] TEST PERFORMED AT: , Ordering Provid er: DIMITRI SCRUGGS Report Released Date/Time: Feb 07, 2022 01:33 PM Reporting Lab: [facility] [address] [facility] [address] Performing Lab: [facility] [address], [address] [place] [address] E. chaffeensis Ab IgG <1:64 SEE BELO W E. chaffeensis Ab IgM <1:20 SEE BELO W A.phagocytophilum Ab IgG <1:64 SEE B ELOW A.phagocytophilum Ab IgM <1:20 SEE B ELOW EHRLICHIA CHAFFEENSIS AB INTER SEE NOTE A. phagocytophilum inter SEE NOTE Feb 07, 2022 [facility] BABESIA MICROTI, Specimen Type: BLOOD 01:43 PM [facility] DNA PCR(V) Comment: The an alytical performance characteristics of this test have been determined by [facility]. It has not been cleared by the FDA. Ordering Provid er: DIMITRI SCRUGGS Report Released Date/Time: Feb 07, 2022 01:29 PM Reporting Lab: [facility] [address] [facility] [address] Performing Lab: [facility] [address] [facility] [address] BABESIA MICROTI, DNA PCR(V) Not Detected Not Detected Feb 07, 2022 [facility] RICKETTSIA ANTIBODY Specimen Ty pe: SERUM 01:43 PM [facility] PANEL (Q) Comment: Test P erformed by [facility], [facility], [address] [place], [place] Ronald Abdul M.D., Ph.D., Director of Laboratories , CLIA [id number] TEST PERFORMED AT: , Ordering Provid er: DIMITRI SCRUGGS Report Released Date/Time: Feb 07, 2022 01:33 PM Reporting Lab: [facility] W[place]N [place] [facility] [address] [facility] [place] [address] Performing Lab: [facility] WSTRN [place] [facility] [address], [address] [facility] [address] RMSF IgG Not Detected Not Detected RMSF IgM Not Detected Not Detected R. typhi IgM Not Detected Not Detected Jan [facility] LYME Specimen Type: SERUM 22, WSTRN SEROLOGY Comment: The re sults are supportive evidence for the presence of antibodies and exposure to Borrelia burgdorferi. The LYME SEROLOGY PANEL was performed using the FDA-approved Demetrius YINA Borrelia burdor 2021 [facility] PANEL feri modified tw o-tier test system. This modified methodology uses a second EIA in place of a western immunoblot assay, which the FDA has determined is substantially equivalent to or better than stand 01:43 [facility] damaris two-tier aren ting using western blot. Supplemental testing with a second EIA meets CDC guidelines for Lyme disease testing. Performance characteristics of the panel were validated at the [facility] lar Diagnostics Laboratory. Results are considered [...] departments, if applicable. The [place] State Form URL is: http://www.ms.gov/dp/dru/dp/infectious_diseases/pdf_forms_/ld23_oajg.pdf Ordering Provid er: DIMITRI SCRUGGS Report Released Date/Time: Feb 07, 2022 07:49 AM Reporting Lab: [facility]N [place] [facility] [address] [facility] [address] Performing Lab: [facility] W[facility]N [facility] [address] [facility] [address] TIER 1 LYME SCREENING EIA Presumptive Positive Negative LYME AB FINAL INTERPRETATION POSITIVE HH N egative TIER 2 LYME EIA,IgG Negative Negative TIER 2 LYME EIA,IgM POSITIVE HH Negative Feb 07, 2022 01:43 PM [place] CNTR [place]STRN [place] FOLATE Specimen Type: SERUM HCS No comment enter ed. Ordering Provid er: DIMITRI SCRUGGS Report Released Date/Time: Feb 07, 2022 07:49 AM Reporting Lab: [facility] [address] [facility] [address] Performing Lab: [facility] WSTRN [place] [facility] [address] [facility] [address] FOLATE 12.99 >5.2 Feb 07, 2022 [place] CNTR WSTRN MALARIA/BABESIA EXAM Specimen T ype: BLOOD 01:43 PM [facility] Comment: Due to the cyclical shed rates of these parasites, one negative specimen does not rule out the possibility of a parasitic infection. Obtain specimens at 6-hour intervals for 36 hours for a com prehensive exami nation. Test Performed by [facility], [facility], [address] [place] [address] Ronald Abdul M.D., Ph.D., Director of Laboratories , CLIA [id number] TEST PERFORMED AT: , Ordering Provid er: DIMITRI SCRUGGS Report Released Date/Time: Feb 07, 2022 01:29 PM Reporting Lab: [facility]N [place] [facility] [address] [facility] [address] Performing Lab: [facility] [address], [address] [place] [address] MALARIA/BABESIA EXAM Negative Negative Feb 07, 2022 [place] CNTRL WSTR[facility] C REACTIVE PROTEIN Specimen Typ e: SERUM 01:43 PM [facility] Comment: Frankie roger range changed on 01/07/11 [facility] reference ranges for ages >17 [...] 07, 2022 01:18 PM Reporting Lab: [place] [facility] [facility] [address] [facility] [address] Performing Lab: [place] [facility] [address] [facility] [address] C REACTIVE PROTEIN (CRPH) 2.32 See eval. Feb 07, 2022 [place] CNTRL WSTRN CORA SCREEN/TITER Specimen Type: SERUM 01:43 PM [place] [facility] No comment enter ed. Ordering Provid er: DIMITRI SCRUGGS Report Released Date/Time: Feb 07, 2022 01:29 PM Reporting Lab: [place] [facility] [place] [facility] [address] [facility] [address] Performing Lab: [place] [facility] [place] [facility] [address] [facility] [address] CORA SCREEN NEG NEG <1:40 Feb 07, 2022 01:43 [place] [facility] VITAMIN B12 Specimen Typ e: SERUM PM [place] [facility] No comment enter ed. Ordering Provid er: DIMITRI SCRUGGS Report Released Date/Time: Feb 07, 2022 07:49 AM Reporting Lab: [place] [facility] [place] [facility] [address] [facility] [address] Performing Lab: [place] CN[facility] [address] [facility] [address] VITAMIN B12 593 200-900 Feb 07, 2022 [facility] SED [facility]ATE, AUTOMATED Specimen Ty pe: BLOOD 01:43 PM [facility] No comment enter ed. Ordering Provid er: DIMITRI SCRUGGS Report Released Date/Time: Feb 07, 2022 01:18 PM Reporting Lab: [facility] [address] [facility] [address] Performing Lab: [facility] [address] [facility] [address] SED RATE, AUTOMATED 9 0-15 Feb 07, 2022 [facility] URINALYSIS CLEAN Specimen Type: URINE 01:43 PM [facility] CATCH No comment enter ed. Ordering Provid er: DIMITRI SCRUGGS Report Released Date/Time: Feb 07, 2022 07:50 AM Reporting Lab: [facility] [address] [facility] [address] Performing Lab: [facility] [address] [facility] [address] UA COLOR Yellow Yellow UA APPEARANCE Clear Clear UA GLUCOSE Negative Negative UA KETONES Negative Neg UA BLOOD Negative Neg UA PROTEIN Negative Neg UA NITRITE Negative Neg UA BILIRUBIN Negative Neg UA SPECIFIC GRAVITY 1.017 1.016-1.02 2 UA pH 6.0 5.0-9.0 UA UROBILINOGEN <2.0 <2.0 UA LEUKOCYTE ESTERASE Negative Neg Feb 07, 2022 [facility] CBC AND DIFF Specimen Type: BLOOD 01:43 PM [facility] (AUTO) No comment enter ed. Ordering Provid er: DIMITRI SCRUGGS Report Released Date/Time: Feb 07, 2022 07:49 AM Reporting Lab: [facility] [address] [facility] [address] Performing Lab: [facility] [address] [facility] [address] WBC 6.22 4.50-11.00 RBC 5.24 4.23-5.66 HGB 15.7 12.8-17 HCT 44.8 39.2-50.4 MCV 85.5 82-99 MCHC 35.0 30.8-35.1 PLT 390 H 140-360 RDW-CV 11.4 L 12.0-16.0 [place], Abs 0.46 0.30-1.10 MCH 30.0 26.2-32.6 Neut % 60.2 Lymph % 30.1 [place] % 7.4 Eos % 1.1 Baso % 0.6 Neut, Abs 3.74 2.20-7.60 Lymph, Abs 1.87 1.00-3.20 Eos, Abs 0.07 0.03-0.44 Baso, Abs 0.04 0.01-0.13 Immature Gran % 0.6 Immature Gran, Abs 0.04 0.00-0.06 Jan 30, 2022 11:25 [place] [facility] THYROID TOTAL T4 Specimen Ty pe: SERUM AM [place] [facility] No comment enter ed. Ordering Provid er: YINA HAGAN Report Released Date/Time: Jan 30, 2022 10:32 AM Reporting Lab: [place] [facility] [place] [facility] [address] [facility] [address] Performing Lab: [place] [facility] [place] [facility] [address] [facility] [address] THYROID TOTAL T4 8.86 4.5-12.0 Jan 30, 2022 [place] [facility] TESTOSTERONE, TOTAL Specimen Ty pe: SERUM 11:25 AM [place] [facility] No comment enter ed. Ordering Provid er: YINA HAGAN Report Released Date/Time: Jan 30, 2022 10:32 AM Reporting Lab: [place] [facility] [place] [facility] [address] [facility] [address] Performing Lab: [place] [facility] [place] [facility] [address] [facility] [address] TESTOSTERONE, TOTAL 525.91 220.00-892 .00 Jan 30, 2022 11:25 [place] [facility] LIVER FUNCTION Specimen Typ e: SERUM AM [place] [facility] No comment enter ed. Ordering Provid er: YINA HAGAN Report Released Date/Time: Jan 30, 2022 10:32 AM Reporting Lab: [place] [facility] [place] [facility] [address] [facility] [address] Performing Lab: [place] [facility] [place] [facility] [address] [facility] [address] PROTEIN,TOTAL 7.2 6.0-8.3 ALBUMIN 4.0 3.5-5.0 ALKALINE PHOSPHATASE 57 40-150 AST 37 H 5-34 ALT 36 <6-55 BILIRUBIN, TOTAL 0.9 0.2-1.2 Jan 30, 2022 11:25 [place] CN[facility] CBC AND DIFF Specimen Typ e: BLOOD AM [place] [facility] (AUTO) No comment enter ed. Ordering Provid er: YINA HAGAN Report Released Date/Time: Jan 30, 2022 10:32 AM Reporting Lab: [facility] [place] [facility] [address] [facility] [address] Performing Lab: [facility] [address] [facility] [address] WBC 2.65 L 4.50-11.00 RBC 5.29 4.23-5.66 HGB 15.7 12.8-17 HCT 46.2 39.2-50.4 MCV 87.3 82-99 MCHC 34.0 30.8-35.1 PLT 152 140-360 RDW-CV 11.5 L 12.0-16.0 MCH 29.7 26.2-32.6 Jan 30, 2022 11:25 [place] CN[facility]L [facility] LIPID PANEL FASTING Specimen Type: SERUM AM [facility] No comment enter ed. Ordering Provid er: YINA HAGAN Report Released Date/Time: Jan 30, 2022 10:32 AM Reporting Lab: [facility] [place] [facility] [address] [facility] [address] Performing Lab: [facility] [place] [facility] [address] [facility] [address] CHOLESTEROL 167 <7-199 TRIGLYCERIDE 112 0-150 LDL calculated 108 0-129 CHOL/HDL 4.5 HDL CHOLESTEROL 37 L 40-60 Jan 30, 2022 [place] CNTRL TRN BASIC METABOLIC PANEL Specimen Type: SERUM 11:25 AM [place] [facility] (fasting) No comment enter ed. Ordering Provid er: YINA HAGAN Report Released Date/Time: Jan 30, 2022 10:32 AM Reporting Lab: [place] [facility] [place] [facility] [address] [facility] [address] Performing Lab: [place] [facility] [place] [facility] [address] [facility] [address] UREA NITROGEN 13 7-25 GLUCOSE 102 H 65-100 SODIUM 135 135-145 POTASSIUM 4.4 3.5-5.0 CHLORIDE 100 100-110 CO2 27 20-30 CREATININE, Serum 1.35 0.50-1.40 eGFR(CKD-EPI 2020) 72 >60 Jan 30, 2022 [facility] HEMOGLOBIN A1C Specimen Type: BLOOD 11:25 AM [place] [facility] PANEL Comment: Values obtained from A1C [...] Lab: [place] [facility] [place] [facility] [address] [facility] [address] Performing Lab: [place] [facility] [place] [facility] [address] [facility] [address] HEMOGLOBIN A1C 4.6 4.0-5.6 Jan 30, 2022 11:25 AM [place] [facility] [place] TSH Specimen Type: SERUM HCS No comment enter ed. Ordering Provid er: YINA HAGAN Report Released Date/Time: Jan 30, 2022 10:32 AM Reporting Lab: [facility] [place] [facility] [address] [facility] [address] Performing Lab: [place] [facility] [facility] [address] [facility] [address] TSH 0.82 0.35-5.00 Jan 30, 2022 11:25 [place] [facility] [place] VITAMIN B12 S pecimen Type: SERUM AM HCS No comment enter ed. Ordering Provid er: YINA HAGAN Report Released Date/Time: Jan 30, 2022 10:32 AM Reporting Lab: [place] [facility] [place] [facility] [address] [facility] [address] Performing Lab: [facility] [place] [facility] [address] [facility] [address] VITAMIN B12 354 200-900 Jan 30, 2022 11:25 [facility] VITAMIN D (25-[place]) Specimen T ype: SERUM AM [place] [facility] No comment enter ed. Ordering Provid er: YINA HAGAN Report Released Date/Time: Jan 30, 2022 10:32 AM Reporting Lab: [facility] [place] [facility] [address] [facility] [address] Performing Lab: [facility] [place] [facility] [address] [facility] [address] VITAMIN D (25-[place]) 38 20-50 Jan 30, 2022 [facility] MICROSCOPIC AUTOMATED, Specimen Type: URINE 11:25 AM [place] [facility] URINE No comment enter ed. Ordering Provid er: YINA HAGAN Report Released Date/Time: Jan 30, 2022 10:32 AM Reporting Lab: [facility] [place] [facility] [address] [facility] [address] Performing Lab: [facility] [place] [facility] [address] [facility] [address] UA WBC 0-5 0-5 UA MUCUS FEW Trace UA RBC 3-5 0-3 Jan 30, 2022 [facility] DIFFERENTIAL, MANUAL Specimen T ype: BLOOD 11:25 AM [place] [facility] Comment: Giant platelets present. SENT FOR PATHOLOGY REVIEW Ordering Provid er: YINA HAGAN Report Released Date/Time: Jan 30, 2022 10:32 AM Reporting Lab: [facility] [place] [facility] [address] [facility] [address] Performing Lab: [facility] [place] [facility] [address] [facility] [address] SEGS 47 L 48-78 BANDS 5 0-10 LYMPHS 16 10-55 MONOS 23 H 2-12 VARIANT LYMPHOCYTES 5 0-6 OTHER/CELL 4 Jan 30, 2022 11:25 [facility] [place] URINALYSIS S pecimen Type: URINE AM HCS No comment enter ed. Ordering Provid er: BENTLEYYINA Report Released Date/Time: Jan 30, 2022 10:32 AM Reporting Lab: [facility] [address] [facility] [address] Performing Lab: [facility] [address] [facility] [address] UA COLOR Yellow Yellow UA APPEARANCE Clear [...] SERUM 14, WSTRN SEROLOGY Comment: The LY TX SEROLOGY PANEL was performed using the FDA-approved Demetrius YINA Borrelia burdorferi modified two-tier test system. This modified methodology uses a second EIA in place of a western imm 2021 [place] PANEL unoblot assay, w hich the FDA has determined is substantially equivalent to or better than standard two-tier testing using western blot. Supplemental testing with a second EIA meets CDC guidelines for 11:25 [facility] Lyme disease aren ting. Performance characteristics [...] The [place] State Form U RL is: http://www.[place].gov/dp/dru/dp/infectious_diseases/pdf_forms_/hr92_ratm.pdf Ordering Provid er: YINA HAGAN Report Released Date/Time: Feb 03, 2022 12:51 PM Reporting Lab: [facility] [place] [facility] [address] [facility] [address] Performing Lab: [facility] [place] [facility] [address] [facility] [address] TIER 1 LYME SCREENING EIA Negative Nega tive LYME AB FINAL INTERPRETATION Negative N egative Jan 30, 2022 11:25 [facility] SMEAR CONSULT ([facility]) Specimen Type: BLOOD AM [place] [facility] Comment: SEE [id number] Ordering Provid er: YINA HAGAN Report Released Date/Time: Jan 30, 2022 12:51 PM Reporting Lab: [facility] [place] [facility] [address] [facility] [address] Performing Lab: [place] [facility] [place] [facility] [address] [facility] [address] SMEAR CONSULT ([facility]) comment Social History: Smoking Status (Most current) and Tobacco Use (All prior to encounter date) This section includes the most current, and the historical, smoking and tobacco-related health factors from the [place] facility where the Encounter took place.Current Smoking Status This section includes the most current smoking, or tobacco-related health factor, from the [place] facility where the Encounter took place. Date/Time Current Smoking Status Comment Facility May 23, 2021 02:30 PM VA-TOBACCO NEVER USED [place] C NTRL [place]N [place] [facility] Encounter Notes: All associated encounter notes This section contains the clinical notes associated to the Encounter. Date/Time Encounter Note(s) Provider Source Feb 10, 2022 01:14 PM PRIMARY CARE NOTE: RYLEE GREER [facility] LOCAL TITLE: WALK-IN NOTE PRIMARY CARE (T) [place] [facility] STANDARD TITLE: PRIMARY CARE NOTE DATE OF NOTE: FEB 10, 2022@13:14 ENTRY DATE: FEB 10, 2022@13:14:14 AUTHOR: RYLEE GREER EXP COSIGNER: URGENCY: STATUS: COMPLETED <====Click to Start Advanced Medical Support Winfield presents to the Primary Care clinic with the following request: [ ]Medication Renewal/Refill [ ]Consultation with Team RN [ ]Symptoms [ X ]OtherLab results The states they are: [ X ]Waiting [ ]Not Waiting Yes Walk in visit scheduled with PACT Nurse [ X ] At this encounter the Winfield's demographi cs were verified. [ X ] At this encounter the Winfield's Insurance information was verified. [ X ] At this encounter the below scheduled visi ts for the Winfield were discussed and appointment reminder card wa s offered. 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
--- OUTSIDE RECORDS SUMMARY | 2022-04-18 10:20 | XMS_ITS | Encounter Summary ---
:1990 Author Organization Department [facility] rs Address [address] [place] [address] Support Name Relationship Address Phone TETE TRAN Unavailable [address] [facility] [address] THOMAS MONTOYA Unavailable 6 [facility] [place] [address] Insurance Providers: All historical and current Section [...] Policy Number Ojeda [facility] Aug 03, [phone] ALIAROSINA Mane 2019 [id number] [facility] ORGAN E DEPT Selected Encounter This section includes the information on record at [place] for the Encounter. Date/Time Encounter Type Encounter Description Reason Provider Source Feb 11, 2022 10:06 Outpatient Encounter DENTAL AM IHE Encounter Template [...] 12, 2022 09:00 AM AMBULATORY - PSYCHIATRY [facility] Feb 14, 2022 12:00 PM [...] [facility] [place] [facility] Jul 17, 2022 08:30 AM AMBULATORY - NONE [facility] [place] [facility] Lab Results: +/- 30 days [...] Interpretation Reference Range Comment Feb 07, 2022 [facility] BRUCELLA ANTIBODY, Specimen Typ e: SERUM 01:43 PM [facility] AGGLUTINATION Comment: REFERE NCE RANGE: [...] performance characteri stics have been determined by [employer]. It has not been cleared or approved by FDA. This assay has been validated pursuant to the CLIA regulations and is used for clinical purposes. Test perfor med by [facility] [address] [place] [address] Sand Slinger Operator: Alejandrina Quick MD,PHD,[place]IR[place]IE Test performed at [place], [place]. Ordering Provid er: DIMITRI SCRUGGS Report Released Date/Time: Feb 07, 2022 01:27 PM Reporting Lab: [facility] [address] [address] Performing Lab: [facility] [address] [place], [address] [facility] [address] BRUCELLA ANTIBODY, AGGLUTINATION <1:80 Feb 07, 2022 [facility] BABESIA MICROTI Specimen Type: SERUM 01:43 PM [facility] ANTIBODIES (IgG, Comment: REFER ENCE RANGE: [...] analytical performance characteristics have been determined by [employer], [place]. It has not been cleared or approved by the U.S. Food and Drug A dministration. T his assay has been validated pursuant to the CLIA regulations and is used for clinical purposes. Test Performed by [facility], [place], [address] [address] [place], [place] Ronald Abdul M.D., Ph.D., Director of Laboratories , CLIA [id number] TEST PERFORMED AT: , Ordering Provid er: DIMITRI SCRUGGS Report Released Date/Time: Feb 07, 2022 01:29 PM Reporting Lab: [facility] [address] [place] [address] Performing Lab: [facility] [facility] [address] [place], [address] [facility] [address] Babesia microti IgG <1:64 SEE BELOW Babesia microti IgM <1:20 SEE BELOW BABESIA MICROTI AB INTER SEE NOTE Feb 07, 2022 [facility] WSTRN ANAPLASMA AND Specimen Type: SERUM 01:43 PM [...] performance c haracteristics have been determined by [facility] [place], [place]. It has not been cleared or [...] analytical performance characteristics have been determined by [place], [place]. It has not been cleared or approved by the U.S. Food and Drug Administration. This assay has been validated pursuant to the CLIA regulations and is used for clinical purposes. Test Performed by [facility] [facility], [place] [place], [address] [place], [place] Ronald Adbul M.D., Ph.D., Director of Laboratories , CLIA [id number] TEST PERFORMED AT: , Ordering Provid er: DIMITRI SCRUGGS Report Released Date/Time: Feb 07, 2022 01:33 PM Reporting Lab: [facility] [address] [address] Performing Lab: [facility] [address] [place], [address] [place] [address] E. chaffeensis Ab IgG <1:64 SEE BELO W E. chaffeensis Ab IgM <1:20 SEE BELO W A.phagocytophilum Ab IgG <1:64 SEE B ELOW A.phagocytophilum Ab IgM <1:20 SEE B ELOW EHRLICHIA CHAFFEENSIS AB INTER SEE NOTE A. phagocytophilum inter SEE NOTE Feb 07, 2022 [facility] BABESIA MICROTI, Specimen Type: BLOOD 01:43 PM [facility] DNA PCR(WHV) Comment: The an alytical performance characteristics of this test have been determined by [facility]. It has not been cleared by the FDA. Ordering Provid er: DIMITRI SCRUGGS Report Released Date/Time: Feb 07, 2022 01:29 PM Reporting Lab: [facility] [address] [address] Performing Lab: [facility] [address] [address] BABESIA MICROTI, DNA PCR(WHV) Not Detected Not Detected Feb 07, 2022 [facility] RICKETTSIA ANTIBODY Specimen Ty pe: SERUM 01:43 PM [facility] PANEL (Q) Comment: Test P erformed by Betty Tracey, [facility], [address] [place], [place] Ronald Abdul M.D., Ph.D., Director of Laboratories , CLIA [id number] TEST PERFORMED AT: , Ordering Provid er: DIMITRI SCRUGGS Report Released Date/Time: Feb 07, 2022 01:33 PM Reporting Lab: [facility]N [place] [facility] [address] [facility] [address] Performing Lab: [facility] WSTRN [place] [facility] [address] [place], [address] [facility] [address] RMSF IgG Not Detected Not Detected RMSF IgM Not Detected Not Detected R. typhi IgM Not Detected Not Detected Jan [facility] LYME Specimen Type: SERUM 22, W[facility]N SEROLOGY Comment: The re sults are supportive evidence for the presence of antibodies and exposure to Borrelia burgdorferi. The LYME SEROLOGY PANEL was performed using the FDA-approved Demetrius YINA Borrelia burdor 2021 [facility] PANEL feri modified tw o-tier test system. This modified methodology uses a second EIA in place of a western immunoblot assay, which the FDA has determined is substantially equivalent to or better than stand 01:43 HCS damaris two-tier aren ting using western blot. Supplemental testing with a second EIA meets CDC guidelines for Lyme disease testing. Performance characteristics of the panel were validated at the [facility]. Results are considered [...] and local health departments, if applicable. The [place] State Form URL is: http://www.[place].gov/dph/dru/dp/infectious_diseases/pdf_forms_/ao98_ywbq.pdf Ordering Provid er: DIMITRI SCRUGGS Report Released Date/Time: Feb 07, 2022 07:49 AM Reporting Lab: [facility] [place] [facility] [address] [address] Performing Lab: [facility] [place] [facility] [address] [address] TIER 1 LYME SCREENING EIA Presumptive Positive Negative LYME AB FINAL INTERPRETATION POSITIVE HH N egative TIER 2 LYME EIA,IgG Negative Negative TIER 2 LYME EIA,IgM POSITIVE HH Negative Feb 07, 2022 01:43 PM [facility] [facility] [place] FOLATE Specimen Type: SERUM HCS No comment enter ed. Ordering Provid er: DIMITRI SCRUGGS Report Released Date/Time: Feb 07, 2022 07:49 AM Reporting Lab: [facility]N [facility] [address] [address] Performing Lab: [facility] WSTRN [place] [facility] [address] [facility] [address] FOLATE 12.99 >5.2 Feb 07, 2022 [facility] MALARIA/BABESIA EXAM Specimen T ype: BLOOD 01:43 PM [facility] Comment: Due to the cyclical shed rates of these parasites, one negative specimen does not rule out the possibility of a parasitic infection. Obtain specimens at 6-hour intervals for 36 hours for a com prehensive exami nation. Test Performed by [facility] [employer] CorporationBetty, [facility] [employer] [facility] Diagnostics [facility], [address] [place] [address] Ronald Abdul M.D., Ph.D., Director of Laboratories , CLIA [id number] TEST PERFORMED AT: , Ordering Provid er: DIMITRI SCRUGGS Report Released Date/Time: Feb 07, 2022 01:29 PM Reporting Lab: [facility] [place] [facility] [address] [address] Performing Lab: [facility]N [place] [facility] [address] [facility] [address], [address] [place] [address] MALARIA/BABESIA EXAM Negative Negative Feb 07, 2022 [facility] C REACTIVE PROTEIN Specimen Typ e: SERUM 01:43 PM [facility]) Comment: Refere nce range changed on 01/07/11 [facility] reference ranges for ages >17 years: hsCRP [...] Feb 07, 2022 01:18 PM Reporting Lab: [facility] [place] [facility] [address] [address] Performing Lab: [facility] [place] [facility] [address] [facility] [address] C REACTIVE PROTEIN (CRPH) 2.32 See eval. Feb 07, 2022 [facility] CORA SCREEN/TITER Specimen Type: SERUM 01:43 PM [place] [facility] No comment enter ed. Ordering Provid er: DIMITRI SCRUGGS Report Released Date/Time: Feb 07, 2022 01:29 PM Reporting Lab: [facility] [place] [facility] [address] [address] Performing Lab: [facility] [place] [facility] [address] [facility] [address] CORA SCREEN NEG NEG <1:40 Feb 07, 2022 01:43 [facility] VITAMIN B12 Specimen Typ e: SERUM PM [place] [facility] No comment enter ed. Ordering Provid er: DIMITRI SCRUGGS Report Released Date/Time: Feb 07, 2022 07:49 AM Reporting Lab: [facility] [place] [facility] [address] [address] Performing Lab: [facility] [place] [facility] [address] [address] VITAMIN B12 593 200-900 Feb 07, 2022 [facility] TR[facility] SED RATE, AUTOMATED Specimen Ty pe: BLOOD 01:43 PM [facility] No comment enter ed. Ordering Provid er: DIMITRI SCRUGGS Report Released Date/Time: Feb 07, 2022 01:18 PM Reporting [facility] [address] [address] Per[facility]: [facility] [address] [address] SED RATE, AUTOMATED 9 0-15 Feb 07, 2022 [facility] URINALYSIS CLEAN Specimen Type: URINE 01:43 PM [facility] CATCH No comment enter ed. Ordering Provid er: DIMITRI SCRUGGS Report Released Date/Time: Feb 07, 2022 07:50 AM Reporting Lab: [facility] [address] [address] Performing Lab: [facility] [address] [address] UA COLOR Yellow Yellow UA APPEARANCE Clear Clear UA GLUCOSE Negative Negative UA KETONES Negative Neg UA BLOOD Negative Neg UA PROTEIN Negative Neg UA NITRITE Negative Neg UA BILIRUBIN Negative Neg UA SPECIFIC GRAVITY 1.017 1.016-1.02 2 UA pH 6.0 5.0-9.0 UA UROBILINOGEN <2.0 <2.0 UA LEUKOCYTE ESTERASE Negative Neg Feb 07, 2022 [facility] CBC AND DIFF Specimen Type: BLOOD 01:43 PM [facility] (AUTO) No comment enter ed. Ordering Provid er: DIMITRI SCRUGGS Report Released Date/Time: Feb 07, 2022 07:49 AM Reporting Lab: [facility] [address] [address] Performing Lab: [facility] [address] [address] WBC 6.22 4.50-11.00 RBC 5.24 4.23-5.66 HGB 15.7 12.8-17 HCT 44.8 39.2-50.4 MCV 85.5 82-99 MCHC 35.0 30.8-35.1 PLT 390 H 140-360 RDW-CV 11.4 L 12.0-16.0 [place], Abs 0.46 0.30-1.10 MCH 30.0 26.2-32.6 Neut % 60.2 Lymph % 30.1 [place] % 7.4 Eos % 1.1 Baso % 0.6 Neut, Abs 3.74 2.20-7.60 Lymph, Abs 1.87 1.00-3.20 Eos, Abs 0.07 0.03-0.44 Baso, Abs 0.04 0.01-0.13 Immature Gran % 0.6 Immature Gran, Abs 0.04 0.00-0.06 Jan 30, 2022 11:25 [facility] THYROID TOTAL T4 Specimen Ty pe: SERUM AM [place] [facility] No comment enter ed. Ordering Provid er: YINA HAGAN Report Released Date/Time: Jan 30, 2022 10:32 AM Reporting Lab: [facility] [place] [facility] [address] [address] Performing Lab: [facility] [place] [facility] [address] [facility] [address] THYROID TOTAL T4 8.86 4.5-12.0 Jan 30, 2022 [facility] TESTOSTERONE, TOTAL Specimen Ty pe: SERUM 11:25 AM [place] [facility] No comment enter ed. Ordering Provid er: YINA HAGAN Report Released Date/Time: Jan 30, 2022 10:32 AM Reporting Lab: [facility] [place] [facility] [address] [address] Performing Lab: [facility] [place] [facility] [address] [address] TESTOSTERONE, TOTAL 525.91 220.00-892 .00 Jan 30, 2022 11:25 [facility] LIVER FUNCTION Specimen Typ e: SERUM AM [place] [facility] No comment enter ed. Ordering Provid er: YINA HAGAN Report Released Date/Time: Jan 30, 2022 10:32 AM Reporting Lab: [facility] [place] [facility] [address] [address] Performing Lab: [facility] [place] [facility] [address] [address] PROTEIN,TOTAL 7.2 6.0-8.3 ALBUMIN 4.0 3.5-5.0 ALKALINE PHOSPHATASE 57 40-150 AST 37 H 5-34 ALT 36 <6-55 BILIRUBIN, TOTAL 0.9 0.2-1.2 Jan 30, 2022 [facility] HEMOGLOBIN A1C Specimen Type: BLOOD 11:25 AM [facility] PANEL Comment: Values obtained from A1C measurements can vary. For typical A1C assays, a reported value of 7.0 could actually be between 6.72 and 7.28 if measured by a reference method. A reported value of 9 .0 could actuall y be between 8.73 and 9.27. Ref: http://www.ngsp.org/CAPdata.asp Ordering Provid er: YINA HAGAN Report Released Date/Time: Jan 30, 2022 10:32 AM Reporting Lab: [facility] [address] [address] Performing Lab: [facility] [address] [address] HEMOGLOBIN A1C 4.6 4.0-5.6 Jan 30, 2022 11:25 [facility] CBC AND DIFF Specimen Typ e: BLOOD AM [facility] (AUTO) No comment enter ed. Ordering Provid er: YINA HAGAN Report Released Date/Time: Jan 30, 2022 10:32 AM Reporting Lab: [facility] [address] [address] Performing Lab: [facility] TRN [facility] [address] [address] WBC 2.65 L 4.50-11.00 RBC 5.29 4.23-5.66 HGB 15.7 12.8-17 HCT 46.2 39.2-50.4 MCV 87.3 82-99 MCHC 34.0 30.8-35.1 PLT 152 140-360 RDW-CV 11.5 L 12.0-16.0 MCH 29.7 26.2-32.6 Jan 30, 2022 11:25 AM [facility] [place] TSH Specimen Type: SERUM HCS No comment enter ed. Ordering Provid er: YINA HAGAN Report Released Date/Time: Jan 30, 2022 10:32 AM Reporting Lab: [facility] [place] [facility] [address] [address] Performing Lab: [facility] [place] [facility] [address] [address] TSH 0.82 0.35-5.00 Jan 30, 2022 11:25 [facility] LIPID PANEL FASTING Specimen Type: SERUM AM [place] [facility] No comment enter ed. Ordering Provid er: YINA HAGAN Report Released Date/Time: Jan 30, 2022 10:32 AM Reporting Lab: [facility] [place] [facility] [address] [address] Performing Lab: [facility] [place] [facility] [address] [address] CHOLESTEROL 167 <7-199 TRIGLYCERIDE 112 0-150 LDL calculated 108 0-129 CHOL/HDL 4.5 HDL CHOLESTEROL 37 L 40-60 Jan 30, 2022 [facility] BASIC METABOLIC PANEL Specimen Type: SERUM 11:25 AM [place] [facility] (fasting) No comment enter ed. Ordering Provid er: YINA HAGAN Report Released Date/Time: Jan 30, 2022 10:32 AM Reporting Lab: [facility] [place] [facility] [address] [address] Performing Lab: [facility] [place] [facility] [address] [address] UREA NITROGEN 13 7-25 GLUCOSE 102 H [...] Lab: [facility] [place] [facility] [address] [address] Performing Lab: [facility] [place] [facility] [address] [address] VITAMIN B12 354 200-900 Jan 30, 2022 11:25 [facility] VITAMIN D (25-OH) Specimen T ype: SERUM AM [place] [facility] No comment enter ed. Ordering Provid er: YINA HAGAN Report Released Date/Time: Jan 30, 2022 10:32 AM Reporting Lab: [facility] [place] [facility] [address] [address] Performing Lab: [facility] [place] [facility] [address] [address] VITAMIN D (25-[place]) 38 20-50 Jan 30, 2022 [facility] MICROSCOPIC AUTOMATED, Specimen Type: URINE 11:25 AM [facility] URINE No comment enter ed. Ordering Provid er: YINA HAGAN Report Released Date/Time: Jan 30, 2022 10:32 AM Reporting Lab: [facility] [place] [facility] [address] [address] Performing Lab: [facility] [place] [facility] [address] [address] UA WBC 0-5 0-5 UA MUCUS FEW Trace UA RBC 3-5 0-3 Jan 30, 2022 11:25 [facility] [place] URINALYSIS S pecimen Type: URINE AM [facility] No comment enter ed. Ordering Provid er: YINA HAGAN Report Released Date/Time: Jan 30, 2022 10:32 AM Reporting Lab: [facility] [place] [facility] [address] [address] Performing Lab: [facility] [place] [facility] [address] [address] UA COLOR Yellow Yellow UA APPEARANCE Clear Clear UA GLUCOSE Negative Negative UA KETONES Negative Neg UA BLOOD Moderate Neg UA PROTEIN 30 Neg UA NITRITE Negative Neg UA BILIRUBIN Negative Neg UA SPECIFIC GRAVITY 1.027 H 1.016-1.02 2 UA pH 5.0 5.0-9.0 UA UROBILINOGEN <2.0 <2.0 UA LEUKOCYTE ESTERASE Negative Neg Jan 30, 2022 [facility] W[facility]N DIFFERENTIAL, MANUAL Specimen T ype: BLOOD 11:25 AM [facility] Comment: Giant platelets present. SENT FOR PATHOLOGY REVIEW Ordering Provid er: BENTLEYYINA Report Released Date/Time: Jan 30, 2022 10:32 AM Reporting Lab: [facility] [address] [address] Performing Lab: [facility] [address] [address] SEGS 47 L 48-78 BANDS 5 0-10 LYMPHS 16 10-55 MONOS 23 H 2-12 VARIANT LYMPHOCYTES 5 0-6 OTHER/CELL 4 Jan [facility] LYME Specimen Type: SERUM 14, [facility] SEROLOGY Comment: The LY ME SEROLOGY PANEL was performed using the FDA-approved Demetrius YINA Borrelia burdorferi modified two-tier test system. This modified methodology uses a second EIA in place of a western imm 2021 [facility] PANEL unoblot assay, w hich the FDA has determined is substantially equivalent to or better than standard two-tier testing using western blot. Supplemental testing with a second EIA meets CDC guidelines for 11:25 HCS Lyme disease aren ting. Performance characteristics of the panel were validated at the [facility]. Results are considered [...] and local health departments, if applicable. The [place] State Form U RL is: http://www.[place].gov/dph/dru/dph/infectious_diseases/pdf_forms_/bo41_rabq.pdf Ordering Provid er: YINA HAGAN Report Released Date/Time: Feb 03, 2022 12:51 PM Reporting Lab: [facility] [place] [facility] [address] [address] Performing Lab: [facility] [place] [facility] [address] [facility] [address] TIER 1 LYME SCREENING EIA Negative Nega tive LYME AB FINAL INTERPRETATION Negative N egative Jan 30, 2022 11:25 [facility] SMEAR CONSULT ([facility]) Specimen Type: BLOOD AM [place] [facility] Comment: SEE HE [id number] Ordering Provid er: YINA HAGAN Report Released Date/Time: Jan 30, 2022 12:51 PM Reporting Lab: [facility] [place] [facility] [address] [address] Performing Lab: [facility] [place] [facility] [address] [address] SMEAR CONSULT ([facility]) comment Social History: Smoking [...] NEVER USED [facility] [place] [facility] Encounter Notes: All associated encounter notes This section contains the clinical notes associated to the Encounter. Date/Time Encounter Note(s) Provider Source Feb 11, 2022 10:06 DENTISTRY ADMINISTRATIVE NOTE: MARGARITO GASPAR [facility] AM LOCAL TITLE: DENTAL ADMINISTRATIVE NOTE [facility] STANDARD TITLE: DENTISTRY ADMINISTRATIVE NOTE DATE OF NOTE: FEB 11, 2022@10:06 ENTRY DATE: FEB 11, 2022@10:06:59 AUTHOR: MONIKA GASPAR EXP COSIGNER: URGENCY: STATUS: COMPLETED Called and spoke to pt. Patients appointment wit h (dental) on (dental)has been cancelled and was reschedule d to 04/17/2022 at 1:00pm. /ivelisse/ MONIKA GASPAR Signed: 02/11/2022 10:07
--- OUTSIDE RECORDS SUMMARY | 2022-04-18 10:21 | XMS_ITS | Encounter Summary ---
:1990 Author Organization Department of [facility] rs Address [address] [place] [address] Support Name Relationship Address Phone TETE TRAN Unavailable [address] [facility] [place] [address] THOMAS MONTOYA Unavailable [address] [place] [address] Insurance Providers: All historical and current Section [...] to Policy Number [facility] Aug 03, [id number] [phone] ALIAJin CowanPR PATIENT BEE HAINESEAST [facility]ENT[facility]RISTIN 2019 [id number] STEPHANIE JOHNSON [facility] ORGANIZ E DEPT Selected Encounter This section includes the information on record at [facility] for the Encounter. Date/Time Encounter Type Encounter Reason Provider Source Description Feb 12, 2022 PSYTX W PT 45 MENTAL HEALTH ICD-10-CM F43.10 MER,CHRI ST 09:00 AM MINUTES CLINIC - IND Post-traumatic IE stress disorder, unspecified with Provider Comments: Posttraumatic stress disorder ([facility] [id number]) IHE Encounter Template Text not used by [facility] Assessments - Encounter Diagnoses This section includes the primary and secondary diagnoses documented for the Encounter. Date/Time Primary/Secondary Diagnosis Name Provider Source Diagnosis Feb 26, 2022 PRIMARY Post-traumatic MER,VERO [facility] WS TRN 08:08 AM stress disorder, [facility] [facility] unspecified Feb 26, 2022 SECONDARY Major depressive MER,VERO [facility] WSTRN 08:08 AM disorder, [facility] recurrent, moderate [...] Appointment Type Appointment Facili ty Name Feb 14, 2022 12:00 PM AMBULATORY - [facility]CHIATRY [facility] [place] [facility] Feb 25, 2022 01:00 PM AMBULATORY - PSYCHIATRY [facility] [place] [facility] Feb 27, 2022 02:00 PM AMBULATORY - PSYCHIATRY [facility] [place] [facility] Mar 17, 2022 03:00 PM AMBULATORY - PSYCHIATRY [facility] [place] [facility] Mar 28, 2022 09:00 AM AMBULATORY - PSYCHIATRY [facility] [place] [facility] Apr 17, 2022 01:00 PM AMBULATORY - NONE [facility] [place] [facility] Apr 25, 2022 09:00 AM AMBULATORY - PSYCHIATRY [facility] [place] [facility] May 09, 2022 09:00 AM AMBULATORY - PSYCHIATRY [facility] [place] [facility] May 23, 2022 09:00 AM AMBULATORY - PSYCHIATRY [facility] [place] [facility] Jul 17, 2022 08:30 AM AMBULATORY - NONE [facility] [place] [facility] Lab Results: +/- 30 days of the encounter This section includes the Chemistry and Hematology Lab Results on record with [facility] for the patient. Radiology Reports and Pathology Reports are provided separately, in subsequent sections.Lab Results This section contains the Chemistry/Hematology Results that were resulted 30 days before or 30 daysafter the date of the Encounter. Date/Time Source Result Type Result - Unit Interpretation Reference Range Comment Feb 07, 2022 [facility] ANTIBODY, Specimen Typ e: SERUM 01:43 PM [place] [facility] AGGLUTINATION Comment: REFERE NCE RANGE: <1:80 The [...] performance characteri stics have been determined by [employer]. It has not been cleared or approved by FDA. This assay has been validated pursuant to the CLIA regulations and is used for clinical purposes. Test perfor med by [facility] [address] [place] [address] Water Plant Operator: Alejandrina Quick MD,PHD,[place]IR[place]IE Test performed at [employer] [facility] [place], [place]. Ordering Provid er: DIMITRI SCRUGGS Report Released Date/Time: Feb 07, 2022 01:27 PM Reporting Lab: [facility] [address] [facility] [address] Performing Lab: [facility] [address] [facility], [address] [facility] [address] BRUCELLA ANTIBODY, AGGLUTINATION <1:80 Feb 07, 2022 [facility] BABESIA MICROTI Specimen Type: SERUM 01:43 PM [facility] ANTIBODIES (IgG, Comment: REFER ENCE RANGE: <1:64 [...] performance characteristics have been determined by [employer] [facility], [place], [place]. It has not been cleared or approved by the U.S. Food and Drug A dministration. T his assay has been validated pursuant to the CLIA regulations and is used for clinical purposes. Test Performed by [employer], [employer] [facility], [address] [facility] Abhijit mend[place]jinWashington [place], [place] Ronald Abdul M.D., Ph.D., Director of Laboratories , CLIA [id number] TEST PERFORMED AT: , Ordering Provid er: DIMITRI SCRUGGS Report Released Date/Time: Feb 07, 2022 01:29 PM Reporting Lab: [facility] [address] [facility] [address] Performing Lab: [facility] [address] [facility] [address], [address] [facility] [address] Babesia microti IgG <1:64 SEE BELOW Babesia microti IgM <1:20 SEE BELOW BABESIA MICROTI AB INTER SEE NOTE Feb 07, 2022 [facility] ANAPLASMA AND Specimen Type: SERUM 01:43 PM [facility] EHRLICHIA AB PANEL Comment: REF ERENCE [...] performance c haracteristics have been determined by [facility], [place], [place]. It has not been cleared or [...] performance characteristics have been determined by [employer] [place], [place]. It has not been cleared or approved by the U.S. Food and Drug Administration. This assay has been validated pursuant to the CLIA regulations and is used for clinical purposes. Test Performed by [facility], [employer] [facility], [address] [place] [address] Ronald Abdul M.D., Ph.D., Director of Laboratories , CLIA [id number] TEST PERFORMED AT: , Ordering Provid er: DIMITRI SCRUGGS Report Released Date/Time: Feb 07, 2022 01:33 PM Reporting Lab: [facility] [address] [facility] [address] Performing Lab: [facility] [address] [facility], [address] [place] [address] E. chaffeensis Ab IgG <1:64 SEE BELO W E. chaffeensis Ab IgM <1:20 SEE BELO W A.phagocytophilum Ab IgG <1:64 SEE B ELOW A.phagocytophilum Ab IgM <1:20 SEE B ELOW EHRLICHIA CHAFFEENSIS AB INTER SEE NOTE A. phagocytophilum inter SEE NOTE Feb 07, 2022 [facility] BABESIA MICROTI, Specimen Type: BLOOD 01:43 PM [facility] DNA PCR(V) Comment: The an alytical performance characteristics of this test have been determined by [facility]. It has not been cleared by the FDA. Ordering Provid er: DIMITRI SCRUGGS Report Released Date/Time: Feb 07, 2022 01:29 PM Reporting Lab: [facility] [address] [facility] [address] Performing Lab: [facility] [address] [place] [address] BABESIA MICROTI, DNA PCR(V) Not Detected Not Detected Feb 07, 2022 [facility] RICKETTSIA ANTIBODY Specimen Ty pe: SERUM 01:43 PM [facility] PANEL (Q) Comment: Test P erformed by duuinBetty [employer] [facility], [address] [place], [place] Ronald Abdul M.D., Ph.D., Director of Laboratories , CLIA [id number] TEST PERFORMED AT: , Ordering Provid er: DIMITRI SCRUGGS Report Released Date/Time: Feb 07, 2022 01:33 PM Reporting Lab: [facility] [address] [facility] [address] Performing Lab: [facility] [address] [facility] [address], [address] [facility] [address] RMSF IgG Not Detected Not Detected RMSF IgM Not Detected Not Detected R. typhi IgM Not Detected Not Detected Jan [facility] LYME Specimen Type: SERUM 22, WSTRN SEROLOGY Comment: The re sults are supportive evidence for the presence of antibodies and exposure to Borrelia burgdorferi. The LYME SEROLOGY PANEL was performed using the FDA-approved Demetrius YINA Borrelia burdor 2021 [facility] PANEL feri modified tw o-tier test system. This modified methodology uses a second EIA in place of a western immunoblot assay, which the FDA has determined is substantially equivalent to or better than stand 01:43 [facility] damaris two-tier aren ting using western blot. Supplemental testing with a second EIA meets CDC guidelines for Lyme disease testing. Performance characteristics of the panel were validated at the [facility] lar Diagnostics Laboratory. Results are considered [...] and local health departments, if applicable. The [place] State Form URL is: http://www.ct.gov/dph/dru/dph/infectious_diseases/pdf_forms_/dy90_nwbn.pdf Ordering Provid er: DIMITRI SCRUGGS Report Released Date/Time: Feb 07, 2022 07:49 AM Reporting Lab: [facility] [place] [facility] [address] [facility] [address] Performing Lab: [facility] WSTRN [place] [facility] [address] [facility] [address] TIER 1 LYME SCREENING EIA Presumptive Positive [...] 07:49 AM Reporting Lab: [facility] [place] [facility] [address] [facility] [address] Performing Lab: [facility] [place] [facility] [address] [facility] [address] FOLATE 12.99 >5.2 Feb 07, 2022 [facility] C REACTIVE PROTEIN Specimen Typ e: SERUM 01:43 PM [facility] ([facility]) Comment: Refere nce range changed on 01/07/11 [facility] reference ranges for ages >17 [...] Feb 07, 2022 01:18 PM Reporting Lab: [facility] [address] [facility] [address] Performing Lab: [facility] [address] [facility] [address] C REACTIVE PROTEIN (CRPH) 2.32 See eval. Feb 07, 2022 [facility] MALARIA/BABESIA EXAM Specimen T ype: BLOOD 01:43 PM [facility] Comment: Due to the cyclical shed rates of these parasites, one negative specimen does not rule out the possibility of a parasitic infection. Obtain specimens at 6-hour intervals for 36 hours for a com prehensive exami nation. Test Performed by [facility], [employer] [facility], [address] [place] [address] Ronald Abdul M.D., Ph.D., Director of Laboratories , [place] [id number] TEST PERFORMED AT: , Ordering Provid er: DIMITRI SCRUGGS Report Released Date/Time: Feb 07, 2022 01:29 PM Reporting Lab: [facility] [address] [facility] [address] Performing Lab: [facility] [place] [facility] [address], [address] [facility] [address] MALARIA/BABESIA EXAM Negative Negative Feb 07, 2022 [facility] CORA SCREEN/TITER Specimen Type: SERUM 01:43 PM [facility] No comment enter ed. Ordering Provid er: DIMITRI SCRUGGS Report Released Date/Time: Feb 07, 2022 01:29 PM Reporting Lab: [facility] ENTERPRISETRN [facility] [address] [facility] [address] Performing Lab: [facility] [address] [facility] [address] CORA SCREEN NEG NEG <1:40 Feb 07, 2022 01:43 [facility] VITAMIN B12 Specimen Typ e: SERUM PM [place] [facility] No comment enter ed. Ordering Provid er: DIMITRI SCRUGGS Report Released Date/Time: Feb 07, 2022 07:49 AM Reporting Lab: [facility] [place] [facility] [address] [facility] [address] Performing Lab: [facility] [address] [facility] [address] VITAMIN B12 593 200-900 Feb 07, 2022 [facility] SED RATE, AUTOMATED Specimen Ty pe: BLOOD 01:43 PM [place] [facility] No comment enter ed. Ordering Provid er: DIMITRI SCRUGGS Report Released Date/Time: Feb 07, 2022 01:18 PM Reporting Lab: [facility] [address] [facility] [address] Performing Lab: [facility] [address] [facility] [address] SED RATE, AUTOMATED 9 0-15 Feb 07, 2022 [facility] URINALYSIS CLEAN Specimen Type: URINE 01:43 PM [facility] CATCH No comment enter ed. Ordering Provid er: DIMITRI SCRUGGS Report Released Date/Time: Feb 07, 2022 07:50 AM Reporting Lab: [facility] [address] [facility] [address] Performing Lab: [facility] [address] [facility] [address] UA COLOR Yellow Yellow UA APPEARANCE Clear Clear UA GLUCOSE Negative Negative UA KETONES Negative Neg UA BLOOD Negative Neg UA PROTEIN Negative Neg UA NITRITE Negative Neg UA BILIRUBIN Negative Neg UA SPECIFIC GRAVITY 1.017 1.016-1.02 2 UA pH 6.0 5.0-9.0 UA UROBILINOGEN <2.0 <2.0 UA LEUKOCYTE ESTERASE Negative Neg Feb 07, 2022 [facility] CBC AND DIFF Specimen Type: BLOOD 01:43 PM [place] [facility] (AUTO) No comment enter ed. Ordering Provid er: DIMITRI SCRUGGS Report Released Date/Time: Feb 07, 2022 07:49 AM Reporting Lab: [facility] [place] [facility] [address] [facility] [address] Performing Lab: [facility] [place] [facility] [address] [facility] [address] WBC 6.22 4.50-11.00 RBC 5.24 4.23-5.66 HGB 15.7 12.8-17 HCT 44.8 39.2-50.4 MCV 85.5 82-99 MCHC 35.0 30.8-35.1 PLT 390 H 140-360 RDW-CV 11.4 L 12.0-16.0 Hettinger, Abs 0.46 0.30-1.10 MCH 30.0 26.2-32.6 Neut % 60.2 Lymph % 30.1 Hettinger % 7.4 Eos % 1.1 Baso % 0.6 Neut, Abs 3.74 2.20-7.60 Lymph, Abs 1.87 1.00-3.20 Eos, Abs 0.07 0.03-0.44 Baso, Abs 0.04 0.01-0.13 Immature Gran % 0.6 Immature Gran, Abs 0.04 0.00-0.06 Jan 30, 2022 11:25 [facility] THYROID TOTAL T4 Specimen Ty pe: SERUM AM [facility] No comment enter ed. Ordering Provid er: YINA HAGAN Report Released Date/Time: Jan 30, 2022 10:32 AM Reporting Lab: [facility] [place] [facility] [address] [facility] [address] Performing Lab: [facility] [place] [facility] [address] [facility] [address] THYROID TOTAL T4 8.86 4.5-12.0 Jan 30, 2022 [facility] TESTOSTERONE, TOTAL Specimen Ty pe: SERUM 11:25 AM [facility] No comment enter ed. Ordering Provid er: YINA HAGAN Report Released Date/Time: Jan 30, 2022 10:32 AM Reporting Lab: [facility] [place] [facility] [address] [facility] [address] Performing Lab: [facility] [place] [facility] [address] [facility] [address] TESTOSTERONE, TOTAL 525.91 220.00-892 .00 Jan 30, 2022 11:25 [facility] LIVER FUNCTION Specimen Typ e: SERUM AM [place] [facility] No comment enter ed. Ordering Provid er: YINA HAGAN Report Released Date/Time: Jan 30, 2022 10:32 AM Reporting Lab: [facility] [place] [facility] [address] [facility] [address] Performing Lab: [facility] [place] [facility] [address] [facility] [address] PROTEIN,TOTAL 7.2 6.0-8.3 ALBUMIN 4.0 3.5-5.0 ALKALINE PHOSPHATASE 57 40-150 AST 37 H 5-34 ALT 36 <6-55 BILIRUBIN, TOTAL 0.9 0.2-1.2 Jan 30, 2022 11:25 [facility] CBC AND DIFF Specimen Typ e: BLOOD AM [place] [facility] (AUTO) No comment enter ed. Ordering Provid er: YINA HAGAN Report Released Date/Time: Jan 30, 2022 10:32 AM Reporting Lab: [facility] [place] [facility] [address] [facility] [address] Performing Lab: [facility] [place] [facility] [address] [facility] [address] WBC 2.65 L 4.50-11.00 RBC 5.29 4.23-5.66 [...] AM Reporting Lab: [facility] [place] [facility] [address] [facility] [address] Performing Lab: [facility] [place] [facility] [address] [facility] [address] CHOLESTEROL 167 <7-199 TRIGLYCERIDE 112 0-150 LDL calculated 108 0-129 CHOL/HDL 4.5 HDL CHOLESTEROL 37 L 40-60 Jan 30, 2022 [facility] BASIC METABOLIC PANEL Specimen Type: SERUM 11:25 AM [place] [facility] (fasting) No comment enter ed. Ordering Provid er: YINA HAGAN Report Released Date/Time: Jan 30, 2022 10:32 AM Reporting Lab: [facility] [place] [facility] [address] [facility] [address] Performing Lab: [facility] [place] [facility] [address] [facility] [address] UREA NITROGEN 13 7-25 GLUCOSE 102 H 65-100 SODIUM 135 135-145 POTASSIUM 4.4 3.5-5.0 CHLORIDE 100 100-110 CO2 27 20-30 CREATININE, Serum 1.35 0.50-1.40 eGFR(CKD-EPI 2020) 72 >60 Jan 30, 2022 [facility] HEMOGLOBIN A1C Specimen Type: BLOOD 11:25 [...] 10:32 AM Reporting Lab: [facility] [place] [facility] [address] [facility] [address] Performing Lab: [facility] [place] [facility] [address] [facility] [address] HEMOGLOBIN A1C 4.6 4.0-5.6 Jan 30, 2022 11:25 AM [facility] [place] TSH Specimen Type: SERUM HCS No comment enter ed. Ordering Provid er: YINA HAGAN Report Released Date/Time: Jan 30, 2022 10:32 AM Reporting Lab: [facility] [place] [facility] [address] [facility] [address] Performing Lab: [facility] [place] [facility] [address] [facility] [address] TSH 0.82 0.35-5.00 Jan 30, 2022 11:25 [facility] [place] VITAMIN B12 S pecimen Type: SERUM AM HCS No comment enter ed. Ordering Provid er: YINA HAGAN Report Released Date/Time: Jan 30, 2022 10:32 AM Reporting Lab: [facility] [place] [facility] [address] [facility] [address] Performing Lab: [facility] [place] [facility] [address] [facility] [address] VITAMIN B12 354 200-900 Jan 30, 2022 11:25 [facility] VITAMIN D (25-OH) Specimen T ype: SERUM AM [place] [facility] No comment enter ed. Ordering Provid er: YINA HAGAN Report Released Date/Time: Jan 30, 2022 10:32 AM Reporting Lab: [facility] [place] [facility] [address] [facility] [address] Performing Lab: [facility] [place] [facility] [address] [facility] [address] VITAMIN D (25-OH) 38 20-50 Jan 30, 2022 [facility] MICROSCOPIC AUTOMATED, Specimen Type: URINE 11:25 AM [place] [facility] URINE No comment enter ed. Ordering Provid er: YINA HAGAN Report Released Date/Time: Jan 30, 2022 10:32 AM Reporting Lab: [facility] [place] [facility] [address] [facility] [address] Performing Lab: [facility] [place] [facility] [address] [facility] [address] UA WBC 0-5 0-5 UA MUCUS FEW Trace UA RBC 3-5 0-3 Jan 30, 2022 11:25 [facility] [place] URINALYSIS S pecimen Type: URINE AM HCS No comment enter ed. Ordering Provid er: YINA HAGAN Report Released Date/Time: Jan 30, 2022 10:32 AM Reporting Lab: [facility] [place] [facility] [address] [facility] [address] Performing Lab: [facility] [address] [facility] [address] UA COLOR Yellow Yellow UA APPEARANCE Clear Clear UA GLUCOSE Negative Negative UA KETONES Negative Neg UA BLOOD Moderate Neg UA PROTEIN 30 Neg UA NITRITE Negative Neg UA BILIRUBIN Negative Neg UA SPECIFIC GRAVITY 1.027 H 1.016-1.02 2 UA pH 5.0 5.0-9.0 UA UROBILINOGEN <2.0 <2.0 UA LEUKOCYTE ESTERASE Negative Neg Jan 30, 2022 [facility] DIFFERENTIAL, MANUAL Specimen T ype: BLOOD 11:25 AM [facility] Comment: Giant platelets present. SENT FOR PATHOLOGY REVIEW Ordering Provid er: BENTLEY,YINA Report Released Date/Time: Jan 30, 2022 10:32 AM Reporting Lab: [facility] [address] [facility] [address] Performing Lab: [address] [address] SEGS 47 L 48-78 BANDS 5 0-10 LYMPHS 16 10-55 MONOS 23 H 2-12 VARIANT LYMPHOCYTES 5 0-6 OTHER/CELL 4 Jan [facility] LYME Specimen Type: SERUM 14, [facility] SEROLOGY Comment: The [facility] SEROLOGY PANEL was performed using the FDA-approved Demetrius YINA Borrelia burdorferi modified two-tier test system. This modified methodology uses a second EIA in place of a western imm 2021 [facility] PANEL unoblot assay, w hich the FDA [...] and local health departments, if applicable. The [place] State Form U RL is: http://www.ct.gov/dph/dru/dph/infectious_diseases/pdf_forms_/db69_dijf.pdf Ordering Provid er: YINA HAGAN Report Released Date/Time: Feb 03, 2022 12:51 PM Reporting Lab: [facility] [place] [facility] [address] [facility] [address] Performing Lab: [facility] [place] [facility] [address] [facility] [address] TIER 1 LYME SCREENING EIA Negative Nega tive LYME AB FINAL INTERPRETATION Negative N egative Jan 30, 2022 11:25 [facility] SMEAR CONSULT ([facility]) Specimen Type: BLOOD AM [place] [facility] Comment: SEE HE [id number] Ordering Provid er: YINA HAGAN Report Released Date/Time: Jan 30, 2022 12:51 PM Reporting Lab: [facility] [place] [facility] [address] [facility] [address] Performing Lab: [facility] [place] [facility] [address] [facility] [address] SMEAR CONSULT ([facility]) comment Social History: Smoking Status (Most current) and Tobacco Use (All prior to encounter date) This section includes the most current, and the historical, smoking and tobacco-related health factors from the [facility] where the Encounter took place.Current Smoking Status This section includes the most current smoking, or tobacco-related health factor, from the [place] facility where the Encounter took place. Date/Time Current Smoking Status Comment Facility May 23, 2021 02:30 PM VA-TOBACCO NEVER USED [facility] [place] [facility] Encounter Notes: All associated encounter notes This section contains the clinical notes associated to the Encounter. Date/Time Encounter Note(s) Provider Source Feb 12, 2022 09:00 SOCIAL WORK NOTE: ANIVAL DEL ANGEL [facility] TRN AM LOCAL TITLE: SOCIAL WORK NOTE [facility] [place] STANDARD TITLE: SOCIAL WORK NOTE DATE OF NOTE: FEB 12, 2022@09:00 ENTRY DATE: FEB 12, 2022@10:01:22 AUTHOR: ANIVAL DEL ANGEL EXP COSIGNER: URGENCY: STATUS: COMPLETED VISIT DURATION: 45 minutes DIAGNOSES: PTSD; [employer] STATEMENT OF GOALS/CONCERNS: reported on the following: - struggling with his PTSD sxs, poor sle ep, some visual hallucinations (seeing people/figures, not identifiable, along with fee ling like he is back in [facility]), and [place] disease. He is currently on prednisone. He said surprising with all this he is not having s/i. 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 He does not feel financially, with two young children and cost of bills and daycare, that he can afford not to work for more than a month. SESSION FOCUS: PTSD/goals/treatment planning INTERVENTIONS: Psychotherapeutic Interventions: Assessment/discussion of sxs, s/i, well-being, a nd needs. Identified new stressor of [place] disease and prednisone. He endo rsed med adherance. Stress management - did relaxation exercise in s ession as he was overwhelmed emotionally/cognitively toda y and had difficulty taking a lot in. He found this beneficial. He said he is trying to fit this in his day. Where possible, focusing in on employment goals and options. 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 Let him know leader writer had made referral to [employer] which diana abdi had wanted. Encouraged exploring his options and clarifying what minimum income he ne eds to be able to support his family. Also explored reside ntial treatment options prior to returning to work. He is still considering [facility] 2 week [facility], which he needs to follow up with. Brought up [facility]. He is un able to do this due to the program length because of children librarian. His 's parents are close [place], and once they do, they would be more available to help with their grandchildren which could free up more. Discussed next steps with treatment. He would like to resume EMDR where it was left off with leader writer (for resource development a nd working with emotions as precursor to trauma processi ng given dissociative/easily moved outside of window of tolerance). Discussed frequency. He prefers e very other week. ASSESSMENT: BRIEF ASSESSMENT OF MENTAL STATUS: 1. Appearance (grooming, attire, apparent age) within normal limits: Yes (says he lost 15 pounds due to [place] disease which is visible) 2. Thought content was organized and goal direc christo: No - some loss of focus/concentration and distr actibility 3. Speech was coherent and unimpaired: Yes 4. Affect was appropriate and unremarkable: Subdued 5. Demeanor was calm, with no signs of agitatio n or restlessness: Yes 6. Sleep was largely unimpaired and restful: No 7. No evidence of psychosis (hallucinations or delusions): Endorsed - not a new symptom, one that occurs w ith increased stress for him 8. Mood was normal: No Other Observations: RISK ASSESSMENT: Denies s/i PLAN FOR FOLLOW-UP: Return in two weeks. is aware of next m ed appointment, as well as crisis line if needed. He knows how to reach wri ter should he need to come in sooner. 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
--- OUTSIDE RECORDS SUMMARY | 2022-04-18 10:21 | XMS_ITS | Encounter Summary ---
:1990 Author Organization Department [facility] rs Address [address] [place] [address] Support Name Relationship Address Phone TETE TRAN Unavailable [address] [place] [address] THOMAS MONTOYA Unavailable [address] [facility] [place] [address] Insurance Providers: All historical and current Section Date Range: From patient's date of to the date document was created.This section includes the names of all active insurance providers for the patient. Insurance Type of Plan Start of End of Group Member Insurance Policy P atient's Provider Coverage Name Policy Policy Number ID Provider's Ojeda's Relationship Coverage Coverage Telephone Name to Policy Number Ojeda [facility] Aug 03, [id number] [phone] ALIAROSINA Mane 2019 [id number] STEPHANIE JOHNSON [facility] ORGANIZ E DEPT Selected Encounter This section includes the information on record at [place] for the Encounter. Date/Time Encounter Type Encounter Description Reason Provider Source Feb 11, 2022 10:26 Outpatient Encounter TELEPHONE PRIMARY CARE IHE Encounter Template Text not used by [...] 12, 2022 09:00 AM AMBULATORY - PSYCHIATRY [facility] [place] Feb 14, 2022 12:00 PM AMBULATORY - [...] - NONE [facility] [place] [facility] Lab Results: +/- 30 days of [...] Specimen Typ e: SERUM 01:43 PM [place] [facility] AGGLUTINATION Comment: REFERE NCE RANGE: <1:80 [...] performance characteri stics have been determined by [facility]. It has not been cleared or approved by FDA. This assay has been validated pursuant to the CLIA regulations and is used for clinical purposes. Test perfor med by [facility] [address] [place] [address] Exhibit Technician: Alejandrina Quick MD,PHD,VIRGINIE Test performed at [place], [place]. Ordering Provid er: DIMITRI SCRUGGS Report Released Date/Time: Feb 07, 2022 01:27 PM Reporting Lab: [facility] [place] [address] [facility] [place] [address] Performing Lab: [facility] [place] [address] [facility] [address], [address] [facility] [address] BRUCELLA ANTIBODY, AGGLUTINATION <1:80 Feb 07, 2022 [facility] BABESIA MICROTI Specimen Type: SERUM 01:43 PM [facility] ANTIBODIES (IgG, Comment: REFER ENCE RANGE: [...] analytical performance characteristics have been determined by [facility]. It has not been cleared or approved by the U.S. Food and Drug A dministration. T his assay has been validated pursuant to the CLIA regulations and is used for clinical purposes. Test Performed by [facility], [employer] [place], [address] [address], [place] Ronald Abdul M.D., Ph.D., Director of Laboratories , CLIA [id number] TEST PERFORMED AT: , Ordering Provid er: DIMITRI SCRUGGS Report Released Date/Time: Feb 07, 2022 01:29 PM Reporting Lab: [facility] [place] [address] [facility] [place] [address] Performing Lab: [facility] [address], [address] [facility] [address] Babesia microti IgG <1:64 SEE BELOW Babesia microti IgM <1:20 SEE BELOW BABESIA MICROTI AB INTER SEE NOTE Feb 07, 2022 [facility] ANAPLASMA AND Specimen Type: SERUM 01:43 PM [facility] EHRLICHIA AB PANEL Comment: REF ERENCE [...] performance c haracteristics have been determined by [facility]. It has not been cleared or [...] analytical performance characteristics have been determined by [facility]. It has not been cleared or approved by the U.S. Food and Drug Administration. This assay has been validated pursuant to the CLIA regulations and is used for clinical purposes. Test Performed by [facility], [address] [place] [address] [place] Ronald Abdul M.D., Ph.D., Director of Laboratories , CLIA [id number] TEST PERFORMED AT: , Ordering Provid er: DIMITRI SCRUGGS Report Released Date/Time: Feb 07, 2022 01:33 PM Reporting Lab: [facility] [place] [address] [facility] [address] Performing Lab: [facility] [place] [address], [address] [place] [address] E. chaffeensis Ab IgG <1:64 SEE BELO W E. chaffeensis Ab IgM <1:20 SEE BELO W A.phagocytophilum Ab IgG <1:64 SEE B ELOW A.phagocytophilum Ab IgM <1:20 SEE B ELOW EHRLICHIA CHAFFEENSIS AB INTER SEE NOTE A. phagocytophilum inter SEE NOTE Feb 07, 2022 [facility] BABESIA MICROTI, Specimen Type: BLOOD 01:43 PM [facility] DNA PCR(V) Comment: The an alytical performance characteristics of this test have been determined by [facility]. It has not been cleared by the FDA. Ordering Provid er: DIMITRI SCRUGGS Report Released Date/Time: Feb 07, 2022 01:29 PM Reporting Lab: [facility] [place] [address] [facility] [address] Performing Lab: [facility] [place] [address] [facility] [address] BABESIA MICROTI, DNA PCR(V) Not Detected Not Detected Feb 07, 2022 [facility] RICKETTSIA ANTIBODY Specimen Ty pe: SERUM 01:43 PM [facility] PANEL (Q) Comment: Test P erformed by Betty Tracey, [facility], [address] [place], [place] Ronald Abdul M.D., Ph.D., Director of Laboratories , CLIA [id number] TEST PERFORMED AT: , Ordering Provid er: DIMITRI SCRUGGS Report Released Date/Time: Feb 07, 2022 01:33 PM Reporting Lab: [facility]N [place] [facility] [address] [facility] [place] [address] Performing Lab: [facility]STRN [place] [facility] [address], [address] [facility] [address] RMSF IgG Not Detected Not Detected RMSF IgM Not Detected Not Detected R. typhi IgM Not Detected Not Detected Jan [facility] LYME Specimen Type: SERUM 22, W[facility] SEROLOGY Comment: The re sults are supportive evidence for the presence of antibodies and exposure to Borrelia burgdorferi. The LYME SEROLOGY PANEL was performed using the FDA-approved Demetrius YINA Borrelia burdor 2021 [facility] PAN[facility] feri modified tw o-tier [...] of the panel were validated at the [facility] lar Diagnostics Laboratory. Results are considered [...] applicable. The [place] State Form URL is: http://www.ct.gov/dp/dru/dp/infectious_diseases/pdf_forms_/jc31_zshk.pdf Ordering Provid er: DIMITRI SCRUGGS Report Released Date/Time: Feb 07, 2022 07:49 AM Reporting Lab: [facility] [place] [facility] [address] [facility] [address] Performing Lab: [facility] [place] [facility] [address] [facility] [address] TIER 1 LYME SCREENING EIA Presumptive Positive Negative LYME AB FINAL INTERPRETATION POSITIVE HH N egative TIER 2 LYME EIA,IgG Negative Negative TIER 2 LYME EIA,IgM POSITIVE HH Negative Feb 07, 2022 01:43 PM [facility] [place] FOLATE Specimen Type: SERUM [facility] No comment enter ed. Ordering Provid er: DIMITRI SCRUGGS Report Released Date/Time: Feb 07, 2022 07:49 AM Reporting Lab: [facility] [place] [facility] [address] [facility] [address] Performing Lab: [facility] [place] [facility] [address] [facility] [address] FOLATE 12.99 >5.2 Feb 07, 2022 [facility] C REACTIVE PROTEIN Specimen Typ e: SERUM 01:43 PM [facility] ([facility]) Comment: Refere joshe range changed on 01/07/11 [facility] reference ranges for ages >17 years: [...] PM Reporting Lab: [facility] [place] [facility] [address] [facility] [address] Performing Lab: [place] [facility] [place] [facility] [address] [facility] [address] C REACTIVE PROTEIN (CRPH) 2.32 See eval. Feb 07, 2022 [facility] MALARIA/BABESIA EXAM Specimen T ype: BLOOD 01:43 PM [place] [facility] Comment: Due to the cyclical shed rates of these parasites, one negative specimen does not rule out the possibility of a parasitic infection. Obtain specimens at 6-hour intervals for 36 hours for a com prehensive exami nation. Test Performed by [facility], [facility], [address] [place] [address] Ronald Abdul M.D., Ph.D., Director of Laboratories , [place] [id number] TEST PERFORMED AT: , Ordering Provid er: DIMITRI SCRUGGS Report Released Date/Time: Feb 07, 2022 01:29 PM Reporting Lab: [facility] [place] [facility] [address] [facility] [address] Performing Lab: [facility] [place] [facility] [address], [address] [place] [address] MALARIA/BABESIA EXAM Negative Negative Feb 07, 2022 [facility] CORA SCREEN/TITER Specimen Type: SERUM 01:43 PM [place] [facility] No comment enter ed. Ordering Provid er: DIMITRI SCRUGGS Report Released Date/Time: Feb 07, 2022 01:29 PM Reporting Lab: [facility] [place] [facility] [address] [facility] [address] Performing Lab: [facility] [place] [facility] [address] [facility] [address] CORA SCREEN NEG NEG <1:40 Feb 07, 2022 01:43 [facility] VITAMIN B12 Specimen Typ e: SERUM PM [place] [facility] No comment enter ed. Ordering Provid er: DIMITRI SCRUGGS Report Released Date/Time: Feb 07, 2022 07:49 AM Reporting Lab: [place] [facility] [place] [facility] [address] [facility] [address] Performing Lab: [facility] [address] [facility] [address] VITAMIN B12 593 200-900 Feb 07, 2022 [facility] SED RATE, AUTOMATED Specimen Ty pe: BLOOD 01:43 PM [facility] No comment enter ed. Ordering Provid er: DIMITRI SCRUGGS Report Released Date/Time: Feb 07, 2022 01:18 PM Reporting Lab: [facility] [address] [facility] [address] Performing Lab: [facility] [address] [facility] [address] SED RATE, AUTOMATED 9 0-15 Feb 07, 2022 [facility] URINALYSIS CLEAN Specimen Type: URINE 01:43 PM [facility] CATCH No comment enter ed. Ordering Provid er: DIMITRI SCRUGGS Report Released Date/Time: Feb 07, 2022 07:50 AM Reporting Lab: [facility] [place] [address] [facility] [address] Performing Lab: [facility] [place] [address] [facility] [address] UA COLOR Yellow Yellow UA APPEARANCE Clear Clear UA GLUCOSE Negative Negative UA KETONES Negative Neg UA BLOOD Negative Neg UA PROTEIN Negative Neg UA NITRITE Negative Neg UA BILIRUBIN Negative Neg UA SPECIFIC GRAVITY 1.017 1.016-1.02 2 UA pH 6.0 5.0-9.0 UA UROBILINOGEN <2.0 <2.0 UA LEUKOCYTE ESTERASE Negative Neg Feb 07, 2022 [facility] CBC AND DIFF Specimen Type: BLOOD 01:43 PM [facility] (AUTO) No comment enter ed. Ordering Provid er: DIMITRI SCRUGGS Report Released Date/Time: Feb 07, 2022 07:49 AM Reporting Lab: [facility] [address] [facility] [address] [address] Performing Lab: [facility] [address] [address] WBC 6.22 4.50-11.00 RBC 5.24 4.23-5.66 HGB 15.7 12.8-17 HCT 44.8 39.2-50.4 MCV 85.5 82-99 MCHC 35.0 30.8-35.1 PLT 390 H 140-360 RDW-CV 11.4 L 12.0-16.0 Mag[place], Abs 0.46 0.30-1.10 MCH 30.0 26.2-32.6 Neut % 60.2 Lymph % 30.1 [place] % 7.4 Eos % 1.1 Baso % 0.6 Neut, Abs 3.74 2.20-7.60 Lymph, Abs 1.87 1.00-3.20 Eos, Abs 0.07 0.03-0.44 Baso, Abs 0.04 0.01-0.13 Immature Gran % 0.6 Immature Gran, Abs 0.04 0.00-0.06 Jan 30, 2022 11:25 [facility] THYROID TOTAL T4 Specimen Ty pe: SERUM AM [place] [facility] No comment enter ed. Ordering Provid er: YINA HAGAN Report Released Date/Time: Jan 30, 2022 10:32 AM Reporting Lab: [place] [facility] [place] [address] [address] Performing Lab: [place] [facility] [place] [facility] [address] [facility] [address] THYROID TOTAL T4 8.86 4.5-12.0 Jan 30, 2022 [facility] TESTOSTERONE, TOTAL Specimen Ty pe: SERUM 11:25 AM [place] [facility] No comment enter ed. Ordering Provid er: YINA HAGAN Report Released Date/Time: Jan 30, 2022 10:32 AM Reporting Lab: [facility] [place] [facility] [address] [facility] [address] Performing Lab: [facility] [place] [facility] [address] [facility] [address] TESTOSTERONE, TOTAL 525.91 220.00-892 .00 Jan 30, 2022 11:25 [facility] LIVER FUNCTION Specimen Typ e: SERUM AM [place] [facility] No comment enter ed. Ordering Provid er: YINA HAGAN Report Released Date/Time: Jan 30, 2022 10:32 AM Reporting Lab: [facility] [place] [address] [address] Performing Lab: [facility] [place] [facility] [address] [facility] [address] PROTEIN,TOTAL 7.2 6.0-8.3 ALBUMIN 4.0 3.5-5.0 ALKALINE PHOSPHATASE 57 40-150 AST 37 H 5-34 ALT 36 <6-55 BILIRUBIN, TOTAL 0.9 0.2-1.2 Jan 30, 2022 11:25 [facility] CBC AND DIFF Specimen Typ e: BLOOD AM [facility] (AUTO) No comment enter ed. Ordering Provid er: YINA HAGAN Report Released Date/Time: Jan 30, 2022 10:32 AM Reporting Lab: [facility] [place] [address] [facility] [address] Performing Lab: [facility] [place] [address] [facility] [address] WBC 2.65 L 4.50-11.00 RBC 5.29 4.23-5.66 HGB 15.7 12.8-17 HCT 46.2 39.2-50.4 MCV 87.3 82-99 MCHC 34.0 30.8-35.1 PLT 152 140-360 RDW-CV 11.5 L 12.0-16.0 MCH 29.7 26.2-32.6 Jan 30, 2022 [facility] H[facility] A[facility]C Specimen Type: BLOOD 11:25 AM [facility] PANEL Comment: Values obtained from A1C measurements can vary. For typical A1C assays, a reported value of 7.0 could actually be between 6.72 and 7.28 if measured by a reference method. A reported value of 9 .0 could actuall y be between 8.73 and 9.27. Ref: http://www.ngsp.org/CAPdata.asp Ordering Provid er: YINA HAGAN Report Released Date/Time: Jan 30, 2022 10:32 AM Reporting Lab: [facility] [place] [address] [facility] [address] Performing Lab: [facility] [place] [address] [facility] [address] HEMOGLOBIN A1C 4.6 4.0-5.6 Jan 30, 2022 11:25 [facility] LIPID PANEL FASTING Specimen Type: SERUM AM [place] [facility] No comment enter ed. Ordering Provid er: YINA HAGAN Report Released Date/Time: Jan 30, 2022 10:32 AM Reporting Lab: [facility] [place] [facility] [address] [facility] [address] Performing Lab: [facility] [place] [facility] [address] [facility] [address] CHOLESTEROL 167 <7-199 TRIGLYCERIDE 112 0-150 LDL calculated 108 0-129 CHOL/HDL 4.5 HDL CHOLESTEROL 37 L 40-60 Jan 30, 2022 11:25 AM [facility] [place] TSH Specimen Type: SERUM [facility] No comment enter ed. Ordering Provid er: YINA HAGAN Report Released Date/Time: Jan 30, 2022 10:32 AM Reporting Lab: [facility] [place] [facility] [address] [facility] [address] Performing Lab: [facility] [place] [facility] [address] [facility] [address] TSH 0.82 0.35-5.00 Jan 30, 2022 11:25 [facility] [place] VITAMIN B12 S pecimen Type: SERUM AM [facility] No comment enter ed. Ordering Provid er: YINA HAGAN Report Released Date/Time: Jan 30, 2022 10:32 AM Reporting Lab: [facility] [place] [facility] [address] [facility] [address] Performing Lab: [facility] [place] [facility] [address] [facility] [address] VITAMIN B12 354 200-900 Jan 30, 2022 11:25 [facility] VITAMIN D (25-OH) Specimen T ype: SERUM AM [place] [facility] No comment enter ed. Ordering Provid er: YINA HAGAN Report Released Date/Time: Jan 30, 2022 10:32 AM Reporting Lab: [facility] [place] [facility] [address] [facility] [address] Performing Lab: [facility] [place] [facility] [address] [facility] [address] VITAMIN D (25-[place]) 38 20-50 Jan 30, 2022 [facility] BASIC METABOLIC PANEL Specimen Type: SERUM 11:25 AM [place] [facility] (fasting) No comment enter ed. Ordering Provid er: YINA HAGAN Report Released Date/Time: Jan 30, 2022 10:32 AM Reporting Lab: [facility] [place] [facility] [address] [facility] [address] Performing Lab: [facility] [place] [facility] [address] [facility] [address] UREA NITROGEN 13 7-25 GLUCOSE 102 H 65-100 SODIUM 135 135-145 POTASSIUM 4.4 3.5-5.0 CHLORIDE 100 100-110 CO2 27 20-30 CREATININE, Serum 1.35 0.50-1.40 eGFR(CKD-EPI 2020) 72 >60 Jan 30, 2022 [facility] MICROSCOPIC AUTOMATED, Specimen Type: URINE 11:25 AM [facility] URINE No comment enter ed. Ordering Provid er: YINA HAGAN Report Released Date/Time: Jan 30, 2022 10:32 AM Reporting Lab: [facility] [place] [facility] [address] [facility] [address] Performing Lab: [facility] [place] [facility] [address] [facility] [address] UA WBC 0-5 0-5 UA MUCUS FEW Trace UA RBC 3-5 0-3 Jan 30, 2022 11:25 [facility] [place] URINALYSIS S pecimen Type: URINE AM HCS No comment enter ed. Ordering Provid er: YINA HAGAN Report Released Date/Time: Jan 30, 2022 10:32 AM Reporting Lab: [facility] [place] [facility] [address] [address] Performing Lab: [facility] [address] [address] UA COLOR Yellow Yellow UA APPEARANCE Clear Clear UA GLUCOSE Negative Negative UA KETONES Negative Neg UA BLOOD Moderate Neg UA PROTEIN 30 Neg UA NITRITE Negative Neg UA BILIRUBIN Negative Neg UA SPECIFIC GRAVITY 1.027 H 1.016-1.02 2 UA pH 5.0 5.0-9.0 UA UROBILINOGEN <2.0 <2.0 UA LEUKOCYTE ESTERASE Negative Neg Jan 30, 2022 [facility] DIFFERENTIAL, MANUAL Specimen T ype: BLOOD 11:25 AM [facility] Comment: Giant platelets present. SENT FOR PATHOLOGY REVIEW Ordering Provid er: BENTLEYYINA Report Released Date/Time: Jan 30, 2022 10:32 AM Reporting Lab: [facility] [place] [address] [facility] [address] Performing Lab: [facility] [place] [address] [facility] [address] SEGS 47 L 48-78 BANDS 5 0-10 LYMPHS 16 10-55 MONOS 23 H 2-12 VARIANT LYMPHOCYTES 5 0-6 OTHER/CELL 4 Jan [facility] LYME Specimen Type: SERUM 14, W[facility] SEROLOGY Comment: The LY ME SEROLOGY PANEL was performed using the FDA-approved Demetrius YINA Borrelia burdorferi modified two-tier test system. This modified methodology uses a second EIA in place of a western imm 2021 [facility] PANEL unoblot assay, w hich the FDA [...] and local health departments, if applicable. The [place] State Form U RL is: http://www.ct.gov/dph/dru/dph/infectious_diseases/pdf_forms_/vu71_hnuh.pdf Ordering Provid er: YINA HAGAN Report Released Date/Time: Feb 03, 2022 12:51 PM Reporting Lab: [facility] [place] [facility] [address] [address] Performing Lab: [facility] [place] [facility] [address] [facility] [address] TIER 1 LYME SCREENING EIA Negative Nega tive LYME AB FINAL INTERPRETATION Negative N egative Jan 30, 2022 11:25 [facility] SMEAR CONSULT ([facility]) Specimen Type: BLOOD AM [place] [facility] Comment: SEE [id number] Ordering Provid er: YINA HAGAN Report Released Date/Time: Jan 30, 2022 12:51 PM Reporting Lab: [facility] [place] [facility] [address] [facility] [address] Performing Lab: [facility] [place] [facility] [address] [address] SMEAR CONSULT ([facility]) comment Social History: Smoking Status (Most [...] 23, 2021 02:30 PM VA-TOBACCO NEVER USED [facility] C [facility]L [facility] [place] [facility] Encounter Notes: All associated encounter notes This section contains the clinical notes associated to the Encounter. Date/Time Encounter Note(s) Provider Source Feb 11, 2022 10:26 AM PRIMARY CARE TELEPHONE ENCOUNTER NOTE: YINA CORDERO [facility] LOCAL TITLE: TELEPHONE NOTE/PRIMARY CARE [place] [facility] STANDARD TITLE: PRIMARY CARE TELEPHONE ENCOUNTER NOTE DATE OF NOTE: FEB 11, 2022@10:26 ENTRY DATE: FEB 11, 2022@10:26:52 AUTHOR: YINA HAGAN EXP COSIGNER: URGENCY: STATUS: COMPLETED Called patient to discuss lab results. Lyme posi tive. He is already taking 21 days of doxycyline 100 mg BI D. 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 TIER 1 LYME SCREENING EIAPresumptive Positive Re f: Negative LYME AB INTERP POSITIVE H* Ref: Negative TIER 2 LYME EIA,IgG Negative Ref: Negative TIER 2 LYME EIA,IgM POSITIVE H* Ref: Negative /es/ YINA [employer]- NURSE PRACTITIONER Signed: 02/11/2022 10:32
--- OUTSIDE RECORDS SUMMARY | 2022-04-18 10:22 | XMS_ITS | Encounter Summary ---
:1990 Author Organization Department of [facility] rs Address [address] [place] [address] Support Name Relationship Address Phone TETE TRAN Unavailable [address] [facility] [phone] [place] [address] THOMAS MARIE Unavailable [address] [place] [address] Insurance Providers: All historical and current Section [...] [facility] Aug 03, [id number] [phone] ALIAROSINA Mane PATIENT BEE GIMENEZ [id number] STEPHANIE JOHNSON [facility] ORGANIZ E DEPT Selected Encounter This section includes the information on record at [place] for the Encounter. Date/Time Encounter Type Encounter Reason Provider Source Description Feb 14, 2022 COMMUNITY/WORK MH CWT/SE ICD-10-CM Z56.0 ALYSE QUINTERO 12:00 PM REINTEGRATION Unemployment, unspecified with Provider Comments: Unemployment, unspecified IHE Encounter Template Text not used by [place] Assessments - Encounter Diagnoses This section includes the primary and secondary diagnoses documented for the Encounter. Date/Time Primary/Secondary Diagnosis Name Provider Source Diagnosis Feb 14, 2022 PRIMARY Unemployment, ALYSE QUINTERO [place] [facility] N 01:35 PM unspecified [place] [facility] Plan of Treatment: Future Appointments [...] Appointment Type Appointment Facili ty Name Feb 25, 2022 01:00 PM AMBULATORY - PSYCHIATRY [place] [facility] [place] [facility] Feb 27, 2022 02:00 PM AMBULATORY - PSYCHIATRY [place] [facility] [place] [facility] Mar 17, 2022 03:00 PM AMBULATORY - PS[place]IATRY [facility] [place] [facility] Mar 28, 2022 09:00 AM AMBULATORY - PSYCHIATRY [facility] [place] [facility] Apr 17, 2022 01:00 PM AMBULATORY - NONE [facility] [place] [facility] Apr 25, 2022 09:00 AM AMBULATORY - PSYCHIATRY [facility] [place] [facility] May 09, 2022 09:00 AM AMBULATORY - PSYCHIATRY [place] [facility] [facility] May 23, 2022 09:00 AM AMBULATORY - PSYCHIATRY [facility] [place] [facility] Jul 17, 2022 08:30 AM AMBULATORY - NONE [place] [facility] [place] [facility] Lab Results: +/- 30 days [...] Interpretation Reference Range Comment Feb 07, 2022 [place] [facility] TRN BRUCELLA ANTIBODY, Specimen Typ e: SERUM 01:43 PM [facility] AGGLUTINATION Comment: REFERE NCE RANGE: [...] performance characteri stics have been determined by [employer]. It has not been cleared or approved by FDA. This assay has been validated pursuant to the CLIA regulations and is used for clinical purposes. Test perfor med by [employer] [facility] [address] [place] [address] Credit Charge Authorizer: Alejandrina Quick MD,PHD,[place]IE Test performed at [place], [place]. Ordering Provid er: DIMITRI SCRUGGS Report Released Date/Time: Feb 07, 2022 01:27 PM Reporting Lab: [facility] [address] [facility] [address] Performing Lab: [facility] [address] [facility], [address] [facility] [address] BRUCELLA ANTIBODY, AGGLUTINATION <1:80 Feb 07, 2022 [facility] BABESIA MICROTI Specimen Type: SERUM 01:43 PM [facility] ANTIBODIES (IgG, Comment: REFER ENCE RANGE: <1:64 [...] analytical performance characteristics have been determined by [place]. It has not been cleared or approved by the U.S. Food and Drug A dministration. T his assay has been validated pursuant to the CLIA regulations and is used for clinical purposes. Test Performed by [facility], [employer] [place], [address] [place], [place] Ronald Abdul M.D., Ph.D., Director of Laboratories , CLIA [id number] TEST PERFORMED AT: , Ordering Provid er: SCRUGGSDIMITRI KINGSTON Report Released Date/Time: Feb 07, 2022 01:29 PM Reporting Lab: [facility] [address] [facility] [place] [address] Performing Lab: [facility] [address], [address] [place] [address] Babesia microti IgG <1:64 SEE BELOW Babesia microti IgM <1:20 SEE BELOW BABESIA MICROTI AB INTER SEE NOTE Feb 07, 2022 [facility]NA[facility]MA AND Specimen Type: SERUM 01:43 PM [facility] EHRLICHIA AB PANEL Comment: REF ERENCE RANGE: [...] performance c haracteristics have been determined by [place]. It has not been cleared or [...] analytical performance characteristics have been determined by [place]. It has not been cleared or approved by the U.S. Food and Drug Administration. This assay has been validated pursuant to the CLIA regulations and is used for clinical purposes. Test Performed by [employer] [place], [address] [place] [address] Ronald Abdul M.D., Ph.D., Director of Laboratories , CLIA [id number] TEST PERFORMED AT: , Ordering Provid er: DIMITRI SCRUGGS Report Released Date/Time: Feb 07, 2022 01:33 PM Reporting Lab: [facility] [address] [facility] [address] Performing Lab: [facility] [address] [facility], [address] [place] [address] E. chaffeensis Ab IgG <1:64 SEE BELO W E. chaffeensis Ab IgM <1:20 SEE BELO W A.phagocytophilum Ab IgG <1:64 SEE B ELOW A.phagocytophilum Ab IgM <1:20 SEE B ELOW EHRLICHIA CHAFFEENSIS AB INTER SEE NOTE A. phagocytophilum inter SEE NOTE Feb 07, 2022 [facility] BABESIA MICROTI, Specimen Type: BLOOD 01:43 PM [facility] DNA PCR(WHV) Comment: The an alytical performance characteristics of this test have been determined by [facility]. It has not been cleared by the FDA. Ordering Provid er: DIMITRI SCRUGGS Report Released Date/Time: Feb 07, 2022 01:29 PM Reporting Lab: [facility] [address] [facility] [address] Performing Lab: [facility] [address] [facility] [address] BABESIA MICROTI, DNA PCR(WHV) Not Detected Not Detected Feb 07, 2022 [facility] RICKETTSIA ANTIBODY Specimen Ty pe: SERUM 01:43 PM [employer] [facility] PANEL (Q) Comment: Test P erformed by [employer], [employer] [place], [address] [place], [place] Ronald Abdul M.D., Ph.D., Director of Laboratories , CLIA [id number] TEST PERFORMED AT: , Ordering Provid er: DIMITRI SCRUGGS Report Released Date/Time: Feb 07, 2022 01:33 PM Reporting Lab: [facility] WSTRN [place] [facility] [address] [facility] [place] [address] Performing Lab: [facility] WSTRN [facility] [address], [address] [facility] [address] RMSF IgG Not Detected Not Detected RMSF IgM Not Detected Not Detected R. typhi IgM Not Detected Not Detected Jose [facility] LYME Specimen Type: SERUM 22, WSTRN SEROLOGY Comment: The re sults are supportive evidence for the presence of antibodies and exposure to Borrelia burgdorferi. The LYME SEROLOGY PANEL was performed using the FDA-approved Demetrius YINA Borrelia burdor 2021 [facility] PAN[facility] feri modified tw o-tier test system. This modified methodology uses a second EIA in place of a western immunoblot assay, which the FDA has determined is substantially equivalent to or better than stand 01:43 [facility] damaris two-tier aren ting using western blot. Supplemental testing with a second EIA meets CDC guidelines for Lyme disease testing. Performance characteristics of the panel were validated at the [facility] lar [facility]. Results are considered positive [...] and local health departments, if applicable. The [place] State Form URL is: http://www.[place].gov/dp/dru/dp/infectious_diseases/pdf_forms_/ek03_lmpo.pdf Ordering Provid er: DIMITRI SCRUGGS Report Released Date/Time: Feb 07, 2022 07:49 AM Reporting Lab: [place] [facility] [place] [facility] [address] [facility] [address] Performing Lab: [place] [facility] [facility] [address] [facility] [address] TIER 1 LYME SCREENING EIA Presumptive Positive Negative LYME AB FINAL INTERPRETATION POSITIVE HH N egative TIER 2 LYME EIA,IgG Negative Negative TIER 2 LYME EIA,IgM POSITIVE HH Negative Feb 07, 2022 01:43 PM [place] [facility] [place] FOLATE Specimen Type: SERUM [facility] No comment enter ed. Ordering Provid er: DIMITRI SCRUGGS Report Released Date/Time: Feb 07, 2022 07:49 AM Reporting Lab: [facility] [facility] [place] [facility] [address] [facility] [address] Performing Lab: [place] [facility] [place] [facility] [address] [facility] [address] FOLATE 12.99 >5.2 Feb 07, 2022 [facility] C REACTIVE PROTEIN Specimen Typ e: SERUM 01:43 PM [facility] ([facility]) Comment: Refere nce range changed on 01/07/11 [facility] reference ranges for ages >17 [...] Feb 07, 2022 01:18 PM Reporting Lab: [place] [facility] [place] [facility] [address] [facility] [address] Performing Lab: [facility] [address] [facility] [address] C REACTIVE PROTEIN (CRPH) 2.32 See eval. Feb 07, 2022 [facility] MALARIA/BABESIA EXAM Specimen T ype: BLOOD 01:43 PM [facility] Comment: Due to the cyclical shed rates of these parasites, one negative specimen does not rule out the possibility of a parasitic infection. Obtain specimens at 6-hour intervals for 36 hours for a com prehensive exami nation. Test Performed by [facility], [employer] [facility], [address] [place] [address] Ronald Abdul M.D., Ph.D., Director of Laboratories , CLIA [id number] TEST PERFORMED AT: , Ordering Provid er: DIMITRI SCRUGGS Report Released Date/Time: Feb 07, 2022 01:29 PM Reporting Lab: [facility] [address] [facility] [address] Performing Lab: [facility] [address] [facility], [address] [facility] [address] MALARIA/BABESIA EXAM Negative Negative Feb 07, 2022 [facility] CORA SCREEN/TITER Specimen Type: SERUM 01:43 PM [facility] No comment enter ed. Ordering Provid er: DIMITRI SCRUGGS Report Released Date/Time: Feb 07, 2022 01:29 PM Reporting Lab: [facility] [address] [facility] [address] Performing Lab: [facility] [address] [facility] [address] CORA SCREEN NEG NEG <1:40 Feb 07, 2022 01:43 [facility] VITAMIN B12 Specimen Typ e: SERUM PM [facility] No comment enter ed. Ordering Provid er: DIMITRI SCRUGGS Report Released Date/Time: Feb 07, 2022 07:49 AM Reporting Lab: [facility] [address] [facility] [address] Performing Lab: [facility]TR[facility] [address] [facility] [address] VITAMIN B12 [phone] Feb 07, 2022 [place] [facility] SED RATE, AUTOMATED Specimen Ty pe: BLOOD 01:43 PM [place] [facility] No comment enter ed. Ordering Provid er: DIMITRI SCRUGGS Report Released Date/Time: Feb 07, 2022 01:18 PM Reporting Lab: [facility] [address] [facility] [address] Performing Lab: [facility] [address] [facility] [address] SED RATE, AUTOMATED 9 0-15 Feb 07, 2022 [place] [facility] URINALYSIS CLEAN Specimen Type: URINE 01:43 PM [facility] CATCH No comment enter ed. Ordering Provid er: DIMITRI SCRUGGS Report Released Date/Time: Feb 07, 2022 07:50 AM Reporting Lab: [facility] [address] [facility] [address] Performing Lab: [facility]ITALTRN [facility] [address] [facility] [address] UA COLOR Yellow Yellow UA APPEARANCE Clear Clear UA GLUCOSE Negative Negative UA KETONES Negative Neg UA BLOOD Negative Neg UA PROTEIN Negative Neg UA NITRITE Negative Neg UA BILIRUBIN Negative Neg UA SPECIFIC GRAVITY 1.017 1.016-1.02 2 UA pH 6.0 5.0-9.0 UA UROBILINOGEN <2.0 <2.0 UA LEUKOCYTE ESTERASE Negative Neg Feb 07, 2022 [facility] CBC AND DIFF Specimen Type: BLOOD 01:43 PM [facility] (AUTO) No comment enter ed. Ordering Provid er: DIMITRI SCRUGGS Report Released Date/Time: Feb 07, 2022 07:49 AM Reporting Lab: [facility] [address] [facility] [address] Performing Lab: [facility] [address] [facility] [address] WBC 6.22 4.50-11.00 RBC 5.24 4.23-5.66 HGB 15.7 12.8-17 HCT 44.8 39.2-50.4 MCV 85.5 82-99 MCHC 35.0 30.8-35.1 PLT 390 H 140-360 RDW-CV 11.4 L 12.0-16.0 Sanborn, Abs 0.46 0.30-1.10 MCH 30.0 26.2-32.6 Neut % 60.2 Lymph % 30.1 Sanborn % 7.4 Eos % 1.1 Baso % 0.6 Neut, Abs 3.74 2.20-7.60 Lymph, Abs 1.87 1.00-3.20 Eos, Abs 0.07 0.03-0.44 Baso, Abs 0.04 0.01-0.13 Immature Gran % 0.6 Immature Gran, Abs 0.04 0.00-0.06 Jan 30, 2022 [place] [facility] TESTOSTERONE, TOTAL Specimen Ty pe: SERUM 11:25 AM [facility] No comment enter ed. Ordering Provid er: YINA HAGAN Report Released Date/Time: Jan 30, 2022 10:32 AM Reporting Lab: [facility] [place] [facility] [address] [facility] [address] Performing Lab: [place] [facility] [facility] [address] [facility] [address] TESTOSTERONE, TOTAL 525.91 220.00-892 .00 Jan 30, 2022 11:25 [place] [facility] THYROID TOTAL T4 Specimen Ty pe: SERUM AM [facility] No comment enter ed. Ordering Provid er: YINA HAGAN Report Released Date/Time: Jan 30, 2022 10:32 AM Reporting Lab: [facility] [place] [facility] [address] [facility] [address] Performing Lab: [place] [facility] [facility] [address] [facility] [address] THYROID TOTAL T4 8.86 4.5-12.0 Jan 30, 2022 11:25 [place] [facility] [place] LIVER FUNCTION Specimen Typ e: SERUM AM [facility] No comment enter ed. Ordering Provid er: YINA HAGAN Report Released Date/Time: Jan 30, 2022 10:32 AM Reporting Lab: [facility] [address] [facility] [address] Performing Lab: [facility] [address] [facility] [address] PROTEIN,TOTAL 7.2 6.0-8.3 ALBUMIN 4.0 3.5-5.0 ALKALINE PHOSPHATASE 57 40-150 AST 37 H 5-34 ALT 36 <6-55 BILIRUBIN, TOTAL 0.9 0.2-1.2 Jan 30, 2022 [facility] HEMOGLOBIN A1C Specimen Type: BLOOD 11:25 AM [facility] PANEL Comment: Values obtained from A1C measurements can vary. For typical A1C assays, a reported value of 7.0 could actually be between 6.72 and 7.28 if measured by a reference method. A reported value of 9 .0 could actuall y be between 8.73 and 9.27. Ref: http://www.ngsp.org/CAPdata.asp Ordering Provid er: YINA HAGAN Report Released Date/Time: Jan 30, 2022 10:32 AM Reporting Lab: [facility] [address] [facility] [address] Performing Lab: [facility] [address] [facility] [address] HEMOGLOBIN A1C 4.6 4.0-5.6 Jan 30, 2022 11:25 [facility] CBC AND DIFF Specimen Typ e: BLOOD AM [facility] (AUTO) No comment enter ed. Ordering Provid er: YINA HAGAN Report Released Date/Time: Jan 30, 2022 10:32 AM Reporting Lab: [facility] [address] [facility] [address] Performing Lab: [facility] [address] [facility] [address] WBC 2.65 L 4.50-11.00 RBC 5.29 4.23-5.66 [...] [facility] [place] [facility] [address] [facility] [address] Performing Lab: [facility] [place] [facility] [address] [facility] [address] CHOLESTEROL 167 <7-199 TRIGLYCERIDE 112 0-150 LDL calculated 108 0-129 CHOL/HDL 4.5 HDL CHOLESTEROL 37 L 40-60 Jan 30, 2022 [facility] BASIC METABOLIC PANEL Specimen Type: SERUM 11:25 AM [place] [facility] (fasting) No comment enter ed. Ordering Provid er: YINA HAGAN Report Released Date/Time: Jan 30, 2022 10:32 AM Reporting Lab: [facility] [place] [facility] [address] [facility] [address] Performing Lab: [facility] [place] [facility] [address] [facility] [address] UREA NITROGEN 13 7-25 GLUCOSE 102 H [...] [facility] [place] [facility] [address] [facility] [address] Performing Lab: [facility] [place] [facility] [address] [facility] [address] TSH 0.82 0.35-5.00 Jan 30, 2022 11:25 [place] [facility] VITAMIN B12 S pecimen Type: SERUM AM [facility] No comment enter ed. Ordering Provid er: YINA HAGAN Report Released Date/Time: Jan 30, 2022 10:32 AM Reporting Lab: [facility] [place] [facility] [address] [facility] [address] Performing Lab: [facility] [place] [facility] [address] [facility] [address] VITAMIN B12 354 200-900 Jan 30, 2022 11:25 [facility] VITAMIN D (25-[place]) Specimen T ype: SERUM AM [place] [facility] No comment enter ed. Ordering Provid er: YINA HAGAN Report Released Date/Time: Jan 30, 2022 10:32 AM Reporting Lab: [facility] [place] [facility] [address] [facility] [address] Performing Lab: [facility] [place] [facility] [address] [facility] [address] VITAMIN D (25-[place]) 38 20-50 Jan 30, 2022 [facility] MICROSCOPIC AUTOMATED, Specimen Type: URINE 11:25 AM [facility] URINE No comment enter ed. Ordering Provid er: YINA HAGAN Report Released Date/Time: Jan 30, 2022 10:32 AM Reporting Lab: [facility] [place] [facility] [address] [facility] [address] Performing Lab: [facility] [place] [facility] [address] [facility] [address] UA WBC 0-5 0-5 UA MUCUS FEW Trace UA RBC 3-5 0-3 Jan 30, 2022 [facility] DIFFERENTIAL, MANUAL Specimen T ype: BLOOD 11:25 AM [facility] Comment: Giant platelets present. SENT FOR PATHOLOGY REVIEW Ordering Provid er: YINA HAGAN Report Released Date/Time: Jan 30, 2022 10:32 AM Reporting Lab: [facility] [place] [facility] [address] [facility] [address] Performing Lab: [facility] [place] [facility] [address] [facility] [address] SEGS 47 L 48-78 BANDS 5 0-10 LYMPHS 16 10-55 MONOS 23 H 2-12 VARIANT LYMPHOCYTES 5 0-6 OTHER/CELL 4 Jan 30, 2022 11:25 [facility]N [place] URINALYSIS S pecimen Type: URINE AM [facility] No comment enter ed. Ordering Provid er: BENTLEYYINA Report Released Date/Time: Jan 30, 2022 10:32 AM Reporting Lab: [facility] [address] [facility] [address] Performing Lab: [facility] [address] [facility] [address] UA COLOR Yellow Yellow UA APPEARANCE Clear Clear UA GLUCOSE Negative Negative UA KETONES Negative Neg UA BLOOD Moderate Neg UA PROTEIN 30 Neg UA NITRITE Negative Neg UA BILIRUBIN Negative Neg UA SPECIFIC GRAVITY 1.027 H 1.016-1.02 2 UA pH 5.0 5.0-9.0 UA UROBILINOGEN <2.0 <2.0 UA LEUKOCYTE ESTERASE Negative Neg Jan [facility] LYME Specimen Type: SERUM 14, WSTRN SEROLOGY Comment: The LY AK SEROLOGY PANEL was performed using the FDA-approved [employer] YINA Borrelia burdorferi modified two-tier test system. This modified methodology uses a second EIA in place of a western imm 2021 [place] PANEL unoblot assay, w hich the FDA has determined is substantially equivalent to or better than standard two-tier testing using western blot. Supplemental testing with a second EIA meets CDC guidelines for 11:25 [facility] Lyme disease aren ting. Performance [...] and local health departments, if applicable. The [place] State Form U RL is: http://www.in.gov/dp/dru/dp/infectious_diseases/pdf_forms_/sa97_jdqu.pdf Ordering Provid er: BENTLEYYINA Report Released Date/Time: Feb 03, 2022 12:51 PM Reporting Lab: [place] [facility] [place] [facility] [address] [facility] [address] Performing Lab: [place] [facility] [place] [facility] [address] [facility] [place] [address] TIER 1 LYME SCREENING EIA Negative Nega tive LYME AB FINAL INTERPRETATION Negative N egative Jan 30, 2022 11:25 [facility] Specimen Type: BLOOD AM [place] [facility] Comment: SEE [id number] Ordering Provid er: YINA HAGAN Report Released Date/Time: Jan 30, 2022 12:51 PM Reporting Lab: [place] [facility] [place] [facility] [address] [facility] [address] Performing Lab: [place] [facility] [place] [facility] [address] [facility] [address] [facility] comment Social History: Smoking Status (Most [...] USED [facility] [place] [facility] Encounter Notes: All associated encounter notes This section contains the clinical notes associated to the Encounter. Date/Time Encounter Note(s) Provider Source Feb 14, 2022 01:43 PM VOCATIONAL REHABILITATION NOTE: JOSE QUINTERO [facility] LOCAL TITLE: VOCATIONAL REHABILITATION/VOCATION AL PLAN [facility] [employer] STANDARD TITLE: VOCATIONAL REHABILITATION NOTE DATE OF NOTE: FEB 14, 2022@13:43 ENTRY DATE: FEB 14, 2022@13:43:31 AUTHOR: ALYSE QUINTERO COSIGNER: URGENCY: STATUS: COMPLETED Clinic or Program: Community Based Employment Se rvices DATE PATIENT ENTERED PROGRAM: Jan VOCATIONAL GENERAL PASSENGER AGENT: Killian Fournier TEAM MEMBERS:Alyse Quintero HEALTH/SAFETY RISKS (DANGER TO SELF AND OTHERS): None MENTAL HEALTH DIAGNOSIS AND RELEVANT MEDICAL CON DITIONS:PTSD SNAP: (strengths, needs, abilities, preferences) Strengths:Intelligent, bilingual (intermediate S panish), good work ethic Needs:Employment Abilities: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 PLAN REVIEW DATE: Feb I understand that my signature below indicates t hat I have reviewed this Vocational Plan with a [place] and that I agree with the identified goals as stated above. The [place] has reviewed and acknowledged the Vo cational Plan. 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 Signed: 02/14/2022 13:46 Feb 14, 2022 01:28 PM VOCATIONAL REHABILITATION INITIAL EVAL UATION NOTE: ALYSE QUINTERO [facility] LOC[facility] TITLE: VOCATIONAL REHABILITATION/INTAKE [facility] [employer] STANDARD TITLE: VOCATIONAL REHABILITATION INITIA L EVALUATION NOT DATE OF NOTE: FEB 14, 2022@13:28 ENTRY DATE: FEB 14, 2022@13:29 AUTHOR: ALYSE QUINTERO COSIGNER: URGENCY: STATUS: COMPLETED VOCATIONAL REHABILITATION/INTAKE Has :George Marie DATE ENTERED PROGRAM: Jan CLINIC OR PROGRAM: [facility] [employer] VOCATIONAL GENERAL PASSENGER AGENT: Killian Fournier TEAM MEMBERS: Alyse Quintero IDENTIFYING STATEMENT PROFILE: I want to work, not sure what I want to do [facility] PATIENT AGE: 31 PATIENT SEX: MALE MARITAL STATUS: MARITAL STATUS - PATIENT RACE: WHITE PRIMARY ELIGIBILTY CODE - SERVICE CONNECTED 50% to 100%: OTHER SOURCES OF INCOME: IN 100% PERIOD OF SERVICE(Dates): PERIOD OF SERVICE - [facility] WAR ASSISTIVE TECHNOLOGY/ACCOMODATIONS: N/A HEALTH/SAFETY RISKS (DANGER TO SELF AND OTHERS): None This IS/NOT the first admission to [facility]: is S.N.A.P. 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 Does the patient have Food Allergies? No If Y es, then detail the food allergies: 2. Does the patient report unintentional weight loss OR gain of at least 10 pounds in the last three months? No If Yes, then specify: 3. Does the patient report decreased food intake and/or appetite? No 4. Are there dental problems that impact ability to consume food? No If Yes, then describe: 5. Does the patient report e ating habits or behaviors that may be indicators of an eating disorder (e.g. binging or induced vomi ting)? No If Yes, then describe: If Nutritional Screen is Positive, refer to [facility] MENTAL HEALTH DIAGNOSIS AND RELEVANT MEDICAL CON DITIONS: PTSD PAIN SCREENING: (0 = No Pain, 10 = Worst Pain Ev er) 3 - 4 INFORMED CONSENT TO PARTICIP ATE IN INTAKE: During the intake, an overview of the Vocational Rehabilitation Pr ogram was provided to , including a review of the Vocational Rehabilitatio n Handbook. [place] demonstrated an understanding of the contents of the handbook and agreed to abide by all policies and procedures. If participating in [facility] [place] submitted the Direct Deposit Authorization Form. VOCATIONAL FORMULATION AND JUSTIFICATION FOR ADM ISSION: will benefit from career explorationa and job readiness aurora ambrosio /ivelisse/ ALYSE QUINTERO BLANCHARD GRINDER OPERATOR Signed: 02/14/2022 13:35 Feb 14, 2022 12:00 PM VOCATIONAL REHABILITATION CONSULT: ALYSE QUINTERO [facility] LOCAL TITLE: CONSULT REPORT/VOCATIONAL ASSESSME NT [place] [facility] STANDARD TITLE: VOCATIONAL REHABILITATION CONSUL T DATE OF NOTE: FEB 14, 2022@12:00 ENTRY DATE: FEB 17, 2022@08:02:45 AUTHOR: ALYSE QUINTERO EXP COSIGNER: URGENCY: STATUS: COMPLETED Consult competed, see Voc Rehab Note 02/14/22 /ivelisse/ ALYSE QUINTERO BLANCHARD GRINDER OPERATOR Signed: 02/17/2022 08:04
--- OUTSIDE RECORDS SUMMARY | 2022-04-18 10:22 | XMS_ITS | Encounter Summary ---
:1990 Author Organization Department [facility] rs Address [address] [place] [address] Support Name Relationship Address Phone TETE TRAN Unavailable [address] [facility] [phone] [address] [place] [address] THOMAS MONTOYA Unavailable [address] [place] [address] Insurance Providers: All historical and current Section Date Range: From patient's date of to the date document was created.This section includes the names of all active insurance providers for the patient. Insurance Type of Plan Start of End of Group Member Insurance Policy P atient's Provider Coverage Name Policy Policy Number ID Provider's Ojeda's Relationship Coverage Coverage Telephone Name to Policy Number Ojeda [facility] Aug 03, [id number] [phone] ALIAROSINA Mane PATIENT BEE GIMENEZ [id number] STEPHANIE JOHNSON [facility] ORGANIZ E DEPT Selected Encounter This section includes the information on record at NH for the Encounter. Date/Time Encounter Type Encounter Description Reason Provider Source Jan 29, 2022 12:00 Outpatient Encounter EVENT (HISTORICAL) AM IHE Encounter Template Text not used by [facility] Plan of Treatment: Future Appointments (+ 6 [...] 30, 2022 08:00 [facility] Jan 30, 2022 11:45 AM [facility] Jan 30, 2022 01:00 PM [facility]IC[facility] Feb 04, 2022 02:15 PM AMBULATORY - NONE [facility] Feb 06, 2022 04:00 PM [...] AMBULATORY - PSYCHIATRY [facility] [place] [facility] Feb 14, 2022 12:00 PM AMBULATORY - PSYCHIATRY [facility] [facility] Feb 25, 2022 01:00 PM AMBULATORY - PSYCHIATRY [facility] [place] [facility] Feb 27, 2022 02:00 PM AMBULATORY - PSYCHIATRY [facility] [facility] Mar 17, 2022 03:00 PM AMBULATORY - PSYCHIATRY [facility] [facility] Mar 28, 2022 09:00 AM AMBULATORY - PSYCHIATRY [facility] [place] [facility] Apr 17, 2022 01:00 PM AMBULATORY - NONE [facility] [place] [facility] Apr 25, 2022 09:00 AM AMBULATORY - PSYCHIATRY [facility] [place] [facility] May 09, 2022 09:00 AM AMBULATORY - PSYCHIATRY [facility] [place] [facility] May 23, 2022 09:00 AM AMBULATORY - PSYCHIATRY [facility] [place] [facility] Jul 17, 2022 08:30 AM AMBULATORY - NONE [facility] Lab Results: +/- 30 days [...] Interpretation Reference Range Comment Feb 07, 2022 [facility] BRUCELLA ANTIBODY, Specimen Typ e: SERUM 01:43 PM [facility] AGGLUTINATION Comment: REFERE NCE RANGE: [...] performance characteri stics have been determined by [facility]. It has not been cleared or approved by FDA. This assay has been validated pursuant to the CLIA regulations and is used for clinical purposes. Test perfor med by [employer] [facility] [address] [place] [address] Chemical Process Project Engineer: Alejandrina Quick MD,PHD,VIRGINIE Test performed at [facility], [place], [place]. Ordering Provid er: DIMITRI SCRUGGS Report Released Date/Time: Feb 07, 2022 01:27 PM Reporting Lab: [facility] [facility] [address] [facility] [address] Performing Lab: [facility] [place] [facility] [address] [facility], [address] [facility] [address] BRUCELLA ANTIBODY, AGGLUTINATION <1:80 Feb 07, 2022 [facility] BABESIA MICROTI Specimen Type: SERUM 01:43 PM [facility] ANTIBODIES (IgG, Comment: REFER ENCE RANGE: [...] analytical performance characteristics have been determined by [place]. It has not been cleared or approved by the U.S. Food and Drug A dministration. T his assay has been validated pursuant to the CLIA regulations and is used for clinical purposes. Test Performed by [facility], [facility], [address] [facility] [place] Ronald Abdul M.D., Ph.D., Director of Laboratories , CLIA [id number] TEST PERFORMED AT: , Ordering Provid er: DIMITRI SCRUGGS Report Released Date/Time: Feb 07, 2022 01:29 PM Reporting Lab: [facility] [address] [facility] [address] Performing Lab: [facility] [address] [facility], [address] [facility] [address] Babesia microti IgG <1:64 SEE BELOW Babesia microti IgM <1:20 SEE BELOW BABESIA MICROTI AB INTER SEE NOTE Feb 07, 2022 [facility] ANAPLASMA AND Specimen Type: SERUM 01:43 PM [facility] EHRLICHIA AB PANEL Comment: REF [...] performance c haracteristics have been determined by [place]. It has not been cleared or [...] analytical performance characteristics have been determined by [place]. It has not been cleared or approved by the U.S. Food and Drug Administration. This assay has been validated pursuant to the CLIA regulations and is used for clinical purposes. Test Performed by [facility], [employer] [facility], [address] [place] [address] Ronald Abdul M.D., Ph.D., Director of Laboratories , CLIA [id number] TEST PERFORMED AT: , Ordering Provid er: DIMITRI SCRUGGS Report Released Date/Time: Feb 07, 2022 01:33 PM Reporting Lab: [facility] [address] [facility] [address] Performing Lab: [facility] [address] [facility], [address] [facility] [address] E. chaffeensis Ab IgG <1:64 SEE BELO W E. chaffeensis Ab IgM <1:20 SEE BELO W A.phagocytophilum Ab IgG <1:64 SEE B ELOW A.phagocytophilum Ab IgM <1:20 SEE B ELOW EHRLICHIA CHAFFEENSIS AB INTER SEE NOTE A. phagocytophilum inter SEE NOTE Feb 07, 2022 [facility] BABESIA MICROTI, Specimen Type: BLOOD 01:43 PM [facility] DNA PCR(WHV) Comment: The an alytical performance characteristics of this test have been determined by [facility]. It has not been cleared by the FDA. Ordering Provid er: DIMITRI SCRUGGS Report Released Date/Time: Feb 07, 2022 01:29 PM Reporting Lab: [facility] [address] [facility] [address] Performing Lab: [facility] [address] [facility] [address] BABESIA MICROTI, DNA PCR(WHV) Not Detected Not Detected Feb 07, 2022 [facility] RICKETTSIA ANTIBODY Specimen Ty pe: SERUM 01:43 PM [facility] PANEL (Q) Comment: Test P erformed by [facility], [facility], [address] [place], [place] Ronald Abdul M.D., Ph.D., Director of Laboratories , [place] [id number] TEST PERFORMED AT: , Ordering Provid er: DIMITRI SCRUGGS Report Released Date/Time: Feb 07, 2022 01:33 PM Reporting Lab: [facility] [address] [facility] [address] Performing Lab: [facility] [address], [address] [facility] [address] RMSF IgG Not Detected Not Detected RMSF IgM Not Detected Not Detected R. typhi IgM Not Detected Not Detected Jan [facility] LYME Specimen Type: SERUM 22, [facility] SEROLOGY Comment: The re sults are supportive evidence for the presence of antibodies and exposure to Borrelia burgdorferi. The LYME SEROLOGY PANEL was performed using the FDA-approved Demetrius YINA Borrelia burdor 2021 [facility] PAN[facility] feri modified tw o-tier test system. This modified methodology uses a second EIA in place of a western immunoblot assay, which the FDA has determined is substantially equivalent to or better than stand 01:43 [facility] damaris two-tier aren ting using western blot. Supplemental testing with a second EIA meets CDC guidelines for Lyme disease testing. Performance characteristics of the panel were validated at the [facility] lar Diagnostics Laboratory. Results are [...] and local health departments, if applicable. The [place] State Form URL is: http://www.me.gov/dph/dru/dph/infectious_diseases/pdf_forms_/lz34_xsig.pdf Ordering Provid er: DIMITRI SCRUGGS Report Released Date/Time: Feb 07, 2022 07:49 AM Reporting Lab: [facility] [address] [facility] [address] Performing Lab: [facility] [address] [facility] [address] TIER 1 LYME SCREENING EIA Presumptive Positive Negative LYME AB FINAL INTERPRETATION POSITIVE HH N egative TIER 2 LYME EIA,IgG Negative Negative TIER 2 LYME EIA,IgM POSITIVE HH Negative Feb 07, 2022 [facility] C REACTIVE PROTEIN Specimen Typ e: SERUM 01:43 PM [facility] ([facility]) Comment: Refere nce range changed on 01/07/11 [facility] reference ranges for ages >17 years: [...] [facility] [place] [facility] [address] [facility] [address] Performing Lab: [facility] [address] [facility] [address] C REACTIVE PROTEIN (CRPH) 2.32 See eval. Feb 07, 2022 01:43 PM [facility] [place] FOLATE Specimen Type: SERUM [facility] No comment enter ed. Ordering Provid er: DIMITRI SCRUGGS Report Released Date/Time: Feb 07, 2022 07:49 AM Reporting Lab: [facility] [place] [facility] [address] [facility] [address] Performing Lab: [facility] [place] [facility] [address] [facility] [address] FOLATE 12.99 >5.2 Feb 07, 2022 [facility] MALARIA/BABESIA EXAM Specimen T ype: BLOOD 01:43 PM [facility] Comment: Due to the cyclical shed rates of these parasites, one negative specimen does not rule out the possibility of a parasitic infection. Obtain specimens at 6-hour intervals for 36 hours for a com prehensive exami nation. Test Performed by [facility], [facility], [address] [place] [address] Ronald Abdul M.D., Ph.D., Director of Laboratories , [facility] [id number] TEST PERFORMED AT: , Ordering Provid er: DIMITRI SCRUGGS Report Released Date/Time: Feb 07, 2022 01:29 PM Reporting Lab: [facility] [place] [facility] [address] [facility] [address] Performing Lab: [facility] [place] [facility] [address], [address] [facility] [address] MALARIA/BABESIA EXAM Negative Negative Feb 07, 2022 [facility] CORA SCREEN/TITER Specimen Type: SERUM 01:43 PM [facility] No comment enter ed. Ordering Provid er: DIMITRI SCURGGS Report Released Date/Time: Feb 07, 2022 01:29 PM Reporting Lab: [facility] [address] [facility] [address] Performing Lab: [facility] [address] [facility] [address] CORA SCREEN NEG NEG <1:40 Feb 07, 2022 01:43 [facility] VITAMIN B12 Specimen Typ e: SERUM PM [facility] [facility] No comment enter ed. Ordering Provid er: DIMITRI SCRUGGS Report Released Date/Time: Feb 07, 2022 07:49 AM Reporting Lab: [facility] [place] [facility] [address] [facility] [address] Performing Lab: [facility] [address] [facility] [address] VITAMIN B12 593 200-900 Feb 07, 2022 [facility] SED RATE, AUTOMATED Specimen Ty pe: BLOOD 01:43 PM [facility] No comment enter ed. Ordering Provid er: DIMITRI SCRUGGS Report Released Date/Time: Feb 07, 2022 01:18 PM Reporting Lab: [facility] [address] [facility] [address] Performing Lab: [facility] [address] [facility] [address] SED RATE, AUTOMATED 9 0-15 Feb 07, 2022 [facility] URINALYSIS CLEAN Specimen Type: URINE 01:43 PM [facility] CATCH No comment enter ed. Ordering Provid er: DIMITRI SCRUGGS Report Released Date/Time: Feb 07, 2022 07:50 AM Reporting Lab: [facility] [place] [facility] [address] [facility] [address] Performing Lab: [facility] [address] [facility] [address] UA COLOR Yellow Yellow UA APPEARANCE Clear [...] AND DIFF Specimen Type: BLOOD 01:43 PM [facility] (AUTO) No comment enter ed. Ordering Provid er: DIMITRI SCRUGGS Report Released Date/Time: Feb 07, 2022 07:49 AM Reporting Lab: [facility] [place] [facility] [address] [facility] [address] Performing Lab: [facility] [place] [facility] [address] [facility] [address] WBC 6.22 4.50-11.00 RBC 5.24 4.23-5.66 HGB 15.7 12.8-17 HCT 44.8 39.2-50.4 MCV 85.5 82-99 MCHC 35.0 30.8-35.1 PLT 390 H 140-360 RDW-CV 11.4 L 12.0-16.0 [place], Abs 0.46 0.30-1.10 MCH 30.0 26.2-32.6 Neut % 60.2 Lymph % 30.1 [place] % 7.4 Eos % 1.1 Baso % 0.6 Neut, Abs 3.74 2.20-7.60 Lymph, Abs 1.87 1.00-3.20 Eos, Abs 0.07 0.03-0.44 Baso, Abs 0.04 0.01-0.13 Immature Gran % 0.6 Immature Gran, Abs 0.04 0.00-0.06 Jan 30, 2022 11:25 [facility] THYROID TOTAL T4 Specimen Ty pe: SERUM AM [facility] No comment enter ed. Ordering Provid er: YINA HAGAN Report Released Date/Time: Jan 30, 2022 10:32 AM Reporting Lab: [facility] [place] [facility] [address] [facility] [address] Performing Lab: [facility] [place] [facility] [address] [facility] [address] THYROID TOTAL T4 8.86 4.5-12.0 Jan 30, 2022 [facility] TESTOSTERONE, TOTAL Specimen Ty pe: SERUM 11:25 AM [facility] No comment enter ed. Ordering Provid er: YINA HAGAN Report Released Date/Time: Jan 30, 2022 10:32 AM Reporting Lab: [facility] [address] [facility] [address] Performing Lab: [facility]ITAL[facility]SEL[facility]ERN [facility] [address] [facility] [address] TESTOSTERONE, TOTAL 525.91 220.00-892 .00 Jan 30, 2022 11:25 [facility] TRN LIVER FUNCTION Specimen Typ e: SERUM AM [place] [facility] No comment enter ed. Ordering Provid er: YINA HAGAN Report Released Date/Time: Jan 30, 2022 10:32 AM Reporting Lab: [facility] [address] [facility] [address] Performing Lab: [facility] [address] [facility] [address] PROTEIN,TOTAL 7.2 6.0-8.3 ALBUMIN 4.0 3.5-5.0 ALKALINE PHOSPHATASE 57 40-150 AST 37 H 5-34 ALT 36 <6-55 BILIRUBIN, TOTAL 0.9 0.2-1.2 Jan 30, 2022 11:25 [facility] CBC AND DIFF Specimen Typ e: BLOOD AM [facility] (AUTO) No comment enter ed. Ordering Provid er: YINA HAGAN Report Released Date/Time: Jan 30, 2022 10:32 AM Reporting Lab: [facility] [place] [facility] [address] [facility] [address] Performing Lab: [facility] [address] [facility] [address] WBC 2.65 L 4.50-11.00 RBC 5.29 4.23-5.66 HGB 15.7 12.8-17 HCT 46.2 39.2-50.4 MCV 87.3 82-99 MCHC 34.0 30.8-35.1 PLT 152 140-360 RDW-CV 11.5 L 12.0-16.0 MCH 29.7 26.2-32.6 Jan 30, 2022 [facility] HEMOGLOBIN A1C Specimen Type: BLOOD [...] AM Reporting Lab: [facility] [address] [facility] [address] Performing Lab: [facility] [address] [facility] [address] HEMOGLOBIN A1C 4.6 4.0-5.6 Jan 30, 2022 11:25 [facility] LIPID PANEL FASTING Specimen Type: SERUM AM [place] [facility] No comment enter ed. Ordering Provid er: YINA HAGAN Report Released Date/Time: Jan 30, 2022 10:32 AM Reporting Lab: [facility] [place] [facility] [address] [facility] [address] Performing Lab: [facility] [place] [facility] [address] [facility] [address] CHOLESTEROL 167 <7-199 TRIGLYCERIDE 112 0-150 LDL calculated 108 0-129 CHOL/HDL 4.5 HDL CHOLESTEROL 37 L 40-60 Jan 30, 2022 [facility]ITALTRN BASIC METABOLIC PANEL Specimen Type: SERUM 11:25 AM [place] [facility] (fasting) No comment enter ed. Ordering Provid er: YINA HAGAN Report Released Date/Time: Jan 30, 2022 10:32 AM Reporting Lab: [facility] [address] [facility] [address] Performing Lab: [facility] [place] [facility] [address] [facility] [address] UREA NITROGEN 13 7-25 GLUCOSE 102 H [...] HCS [address] [facility] [address] Performing Lab: [facility] [address] [facility] [address] TSH 0.82 0.35-5.00 Jan 30, 2022 11:25 [facility] [place] VITAMIN B12 S pecimen Type: SERUM AM HCS No comment enter ed. Ordering Provid er: YINA HAGAN Report Released Date/Time: Jan 30, 2022 10:32 AM Reporting Lab: [facility] [address] [facility] [address] Performing Lab: [facility] [address] [facility] [address] VITAMIN B12 354 200-900 Jan 30, 2022 11:25 [facility] VITAMIN D (25-[place]) Specimen T ype: SERUM AM [facility] No comment enter ed. Ordering Provid er: YINA HAGAN Report Released Date/Time: Jan 30, 2022 10:32 AM Reporting Lab: [facility] [address] [facility] [address] Performing Lab: [facility] [address] [facility] [address] VITAMIN D (25-[place]) 38 20-50 Jan 30, 2022 [facility] MICROSCOPIC AUTOMATED, Specimen Type: URINE 11:25 AM [facility] URINE No comment enter ed. Ordering Provid er: YINA HAGAN Report Released Date/Time: Jan 30, 2022 10:32 AM Reporting Lab: [facility] [address] [facility] [address] Performing Lab: [facility] [address] [facility] [address] UA WBC 0-5 0-5 UA MUCUS FEW Trace UA RBC 3-5 0-3 Jan 30, 2022 [facility] DIFFERENTIAL, MANUAL Specimen T ype: BLOOD 11:25 AM [facility] Comment: Giant platelets present. SENT FOR PATHOLOGY REVIEW Ordering Provid er: YINA HAGAN Report Released Date/Time: Jan 30, 2022 10:32 AM Reporting Lab: [facility] [address] [facility] [address] Performing Lab: [facility] [address] [facility] [address] SEGS 47 L 48-78 BANDS 5 0-10 LYMPHS 16 10-55 MONOS 23 H 2-12 VARIANT LYMPHOCYTES 5 0-6 OTHER/CELL 4 Jan 30, 2022 11:25 [facility] URINALYSIS S pecimen Type: URINE AM HCS No comment enter ed. Ordering Provid er: YINA HAGAN Report Released Date/Time: Jan 30, 2022 10:32 AM Reporting Lab: [facility] [address] [facility] [address] Performing Lab: [facility] [address] [facility] [address] UA COLOR Yellow Yellow UA APPEARANCE Clear Clear UA GLUCOSE Negative Negative UA KETONES Negative Neg UA BLOOD Moderate Neg UA PROTEIN 30 Neg UA NITRITE Negative Neg UA BILIRUBIN Negative Neg UA SPECIFIC GRAVITY 1.027 H 1.016-1.02 2 UA pH 5.0 5.0-9.0 UA UROBILINOGEN <2.0 <2.0 UA LEUKOCYTE ESTERASE Negative Neg Jan [facility] LYME Specimen Type: SERUM 14, [facility] SEROLOGY [...] second EIA meets CDC guidelines for 11:25 [facility] Lyme disease aren ting. Performance characteristics of the panel were validated at the [facility]. Results are considered [...] and local health departments, if applicable. The [place] State Form U RL is: http://www.me.gov/dph/dru/dph/infectious_diseases/pdf_forms_/oi83_phjx.pdf Ordering Provid er: YINA HAGAN Report Released Date/Time: Feb 03, 2022 12:51 PM Reporting Lab: [facility] [address] [facility] [address] Performing Lab: [facility] [address] [facility] [address] TIER 1 LYME SCREENING EIA Negative Nega tive LYME AB FINAL INTERPRETATION Negative N egative Jan 30, 2022 11:25 [facility] SMEAR CONSULT ([facility]) Specimen Type: BLOOD AM [place] [facility] Comment: SEE HE [id number] Ordering Provid er: YINA HAGAN Report Released Date/Time: Jan 30, 2022 12:51 PM Reporting Lab: [facility] [place] [facility] [address] [facility] [address] Performing Lab: [facility] [address] [facility] [address] SMEAR CONSULT ([facility]) comment Social History: Smoking Status (Most current) and Tobacco Use (All prior to encounter date) This section includes the most current, and the historical, smoking and tobacco-related health factors from the [place] facility where the Encounter took place.Current Smoking Status This section includes the most current smoking, or tobacco-related health factor, from the [place] facility where the Encounter took place. Date/Time Current Smoking Status Comment Facility May 23, 2021 02:30 PM VA-TOBACCO NEVER USED [facility] [place] [facility] Encounter Notes: All associated encounter notes This section contains the clinical notes associated to the Encounter. Date/Time Encounter Note(s) Provider Source Jan 29, 2022 12:00 AM NONVA NOTE: [facility] LOCAL TITLE: NON-VA HOSPITALIZATIONS/ER [place] [facility] STANDARD TITLE: NONVA NOTE DATE OF NOTE: JAN 29, 2022 ENTRY DATE: FEB 13 022@10:07 AUTHOR: AUSTIN SOSA EXP COSIGNER: URGENCY: STATUS: COMPLETED VistA Imaging - Scanned Document SCANNED DOCUMENT SIGNATURE NOT REQUIRED Electronically Filed: 02/13/2022 by: AUSTIN SOSA ON SITE SERVICES SPECIALIST
--- OUTSIDE RECORDS SUMMARY | 2022-04-18 10:23 | XMS_ITS | Encounter Summary ---
:1990 Author Organization Department [facility] rs Address [address] [place] [address] Support Name Relationship Address Phone TETE TRAN Unavailable [address] [facility] [address] THOMAS MONTOYA Unavailable [address] [place] [address] Insurance Providers: All historical and current Section Date Range: From patient's date of to the date document was created.This section includes the names of all active insurance providers for the patient. Insurance Type of Plan Start of End of Group Member Insurance Policy P atient's Provider Coverage Name Policy Policy Number ID Provider's Ojeda's Relationship Coverage Coverage Telephone Name to Policy Number Ojeda [facility] Aug 03, [id number] [phone] ALIAROSINA Mane 2019 [id number] STEPHANIE JOHNSON [facility] ORGANIZ E DEPT Selected Encounter This section includes the information on record at [place] for the Encounter. Date/Time Encounter Type Encounter Description Reason Provider Source Jan 30, 2022 12:00 Outpatient Encounter EVENT (HISTORICAL) AM [...] 04, 2022 02:15 PM [facility] Feb 06, 2022 04:00 PM [...] AMBULATORY - PSYCHIATRY [facility] [place] [facility] Mar 28, 2022 09:00 AM AMBULATORY - PSYCHIATRY [facility] [place] [facility] Apr 17, 2022 01:00 PM AMBULATORY - NONE [facility] [place] [facility] Apr 25, 2022 09:00 AM AMBULATORY - PSYCHIATRY [facility] [place] [facility] May 09, 2022 09:00 AM AMBULATORY - PSYCHIATRY [facility] [place] [facility] May 23, 2022 09:00 AM AMBULATORY - PSYCHIATRY [facility] [place] [facility] Jul 17, 2022 08:30 AM AMBULATORY - NONE [facility] [place] [facility] Lab Results: +/- 30 days [...] Specimen Typ e: SERUM 01:43 PM [place] [facility] AGGLUTINATION Comment: REFERE NCE RANGE: [...] performance characteri stics have been determined by [employer]. It has not been cleared or approved by FDA. This assay has been validated pursuant to the CLIA regulations and is used for clinical purposes. Test perfor med by [facility] [address] [place] [address] Telephone Supervisor: Alejandrina Quick MD,PHD,[place] Test performed at [place], [place]. Ordering Provid er: DIMITRI SCRUGGS Report Released Date/Time: Feb 07, 2022 01:27 PM Reporting Lab: [facility] [address] [facility] [address] Performing Lab: [facility] [address], [address] [facility] [address] BRUCELLA ANTIBODY, AGGLUTINATION <1:80 Feb 07, 2022 [facility] BABESIA MICROTI Specimen Type: SERUM 01:43 PM [facility] ANTIBODIES (IgG, Comment: REFER ENCE [...] analytical performance characteristics have been determined by [employer] [place], [place]. It has not been cleared or approved by the U.S. Food and Drug A dministration. T his assay has been validated pursuant to the CLIA regulations and is used for clinical purposes. Test Performed by [facility], [place], [employer] [place], [address] [place], [place] Ronald Abdul M.D., Ph.D., Director of Laboratories , CLIA [id number] TEST PERFORMED AT: , Ordering Provid er: DIMITRI SCRUGGS Report Released Date/Time: Feb 07, 2022 01:29 PM Reporting Lab: [facility] [address] [facility] [address] Performing Lab: [facility] [address] [facility] [address], [address] [facility] [address] Babesia microti IgG <1:64 SEE BELOW Babesia microti IgM <1:20 SEE BELOW BABESIA MICROTI AB INTER SEE NOTE Feb 07, 2022 [facility] ANAPLASMA AND Specimen Type: SERUM 01:43 PM [facility] EHRLICHIA AB PANEL Comment: REF ERENCE [...] performance c haracteristics have been determined by [facility], [place], [place]. It has not been cleared or [...] analytical performance characteristics have been determined by [employer] [place]. It has not been cleared or approved by the U.S. Food and Drug Administration. This assay has been validated pursuant to the CLIA regulations and is used for clinical purposes. Test Performed by [facility] [place], [employer] [facility], [address] [place] [address] Ronald Abdul M.D., Ph.D., Director of Laboratories , CLIA [id number] TEST PERFORMED AT: , Ordering Provid er: DIMITRI SCRUGGS Report Released Date/Time: Feb 07, 2022 01:33 PM Reporting Lab: [facility] [address] [facility] [address] Performing Lab: [facility] [address] [facility] [facility], [address] [place] [address] E. chaffeensis Ab IgG <1:64 SEE BELO W E. chaffeensis Ab IgM <1:20 SEE BELO W A.phagocytophilum Ab IgG <1:64 SEE B ELOW A.phagocytophilum Ab IgM <1:20 SEE B ELOW EHRLICHIA CHAFFEENSIS AB INTER SEE NOTE A. phagocytophilum inter SEE NOTE Feb 07, 2022 [facility] BABESIA MICROTI, Specimen Type: BLOOD 01:43 PM [facility] DNA PCR(V) Comment: The an alytical performance characteristics of this test have been determined by [facility]. It has not been cleared by the FDA. Ordering Provid er: DIMITRI SCRUGGS Report Released Date/Time: Feb 07, 2022 01:29 PM Reporting Lab: [facility] [address] [facility] [address] Performing Lab: [facility] [address] [facility] [address] BABESIA MICROTI, DNA PCR(WHV) Not Detected Not Detected Feb 07, 2022 [facility] RICKETTSIA ANTIBODY Specimen Ty pe: SERUM 01:43 PM [facility] PANEL (Q) Comment: Test P erformed by Betty Tracey [employer] Aaliyah [facility], [address] [place] [address] Ronald Abdul M.D., Ph.D., Director of Laboratories , CLIA [id number] TEST PERFORMED AT: , Ordering Provid er: DIMITRI SCRUGGS Report Released Date/Time: Feb 07, 2022 01:33 PM Reporting Lab: [facility] [address] [facility] [address] Performing Lab: [facility] [address], [address] [facility] [address] RMSF IgG Not Detected Not Detected RMSF IgM Not Detected Not Detected R. typhi IgM Not Detected Not Detected Jan [facility] LYME Specimen Type: SERUM 22, W[facility]N SEROLOGY Comment: The re sults are supportive evidence for the presence of antibodies and exposure to Borrelia burgdorferi. The LYME SEROLOGY PANEL was performed using the FDA-approved Demetrius YINA Borrelia burdor 2021 [facility] PANEL feri modified tw o-tier test system. This modified methodology uses a second EIA in place of a western immunoblot assay, which the FDA has determined is substantially equivalent to or better than stand 01:43 [facility] damaris two-tier aren ting using western blot. Supplemental testing with a second EIA meets CDC guidelines for Lyme disease testing. Performance characteristics of the panel were validated at the [facility]. Results are considered [...] applicable. The [place] State Form URL is: http://www.ct.gov/dph/dru/dph/infectious_diseases/pdf_forms_/hx16_mjqb.pdf Ordering Provid er: DIMITRI SCRUGGS Report Released Date/Time: Feb 07, 2022 07:49 AM Reporting Lab: [place] [employer] SportsTRN Self [facility] NetworkCHUSETS [facility] [address] [facility] [address] Performing Lab: [facility] [address] [facility] [address] TIER 1 LYME SCREENING EIA Presumptive Positive Negative LYME AB FINAL INTERPRETATION POSITIVE HH N egative TIER 2 LYME EIA,IgG Negative Negative TIER 2 LYME EIA,IgM POSITIVE HH Negative Feb 07, 2022 01:43 PM [place] [facility] FOLATE Specimen Type: SERUM [facility] No comment enter ed. Ordering Provid er: DIMITRI SCRUGGS Report Released Date/Time: Feb 07, 2022 07:49 AM Reporting Lab: [facility]N [place] [facility] [address] [facility] [address] Performing Lab: [facility] [place] [facility] [address] [facility] [address] FOLATE 12.99 >5.2 Feb 07, 2022 [place] [facility] C REACTIVE PROTEIN Specimen Typ e: SERUM 01:43 PM [facility] ([place] [facility]) Comment: Refere nce range changed on 01/07/11 [facility] reference ranges for ages >17 [...] Feb 07, 2022 01:18 PM Reporting Lab: [facility] [address] [facility] [address] Performing Lab: [facility] [address] [facility] [address] C REACTIVE PROTEIN (CRPH) 2.32 See eval. Feb 07, 2022 [facility]ITALRTAYL[facility]ILITYN MALARIA/BABESIA EXAM Specimen T ype: BLOOD 01:43 PM [facility] Comment: Due to the cyclical shed rates of these parasites, one negative specimen does not rule out the possibility of a parasitic infection. Obtain specimens at 6-hour intervals for 36 hours for a com prehensive exami nation. Test Performed by [facility] [place], [employer] [facility], [address] [place] [address] Ronald Abdul M.D., Ph.D., Director of Laboratories , [place] [id number] TEST PERFORMED AT: , Ordering Provid er: DIMITRI SCRUGGS Report Released Date/Time: Feb 07, 2022 01:29 PM Reporting Lab: [facility] [address] [facility] [address] Performing Lab: [facility] [address], [address] [place] [address] MALARIA/BABESIA EXAM Negative Negative Feb 07, 2022 [facility]ITALRHUNTSVILLE HOSPITAL SYSTEMTRN CORA SCREEN/TITER Specimen Type: SERUM 01:43 PM [facility] No comment enter ed. Ordering Provid er: DIMITRI SCRUGGS Report Released Date/Time: Feb 07, 2022 01:29 PM Reporting Lab: [facility] [address] [facility] [address] Performing Lab: [facility] [address] [facility] [address] CORA SCREEN NEG NEG <1:40 Feb 07, 2022 01:43 [facility] VITAMIN B12 Specimen Typ e: SERUM PM [place] [facility] No comment enter ed. Ordering Provid er: DIMITRI SCRUGGS Report Released Date/Time: Feb 07, 2022 07:49 AM Reporting Lab: [facility]ITALUSE[facility] [address] [facility] [address] Performing Lab: [facility] WSTRN [facility]ITAL[facility] [address] [facility] [address] VITAMIN B12 [phone] Feb 07, 2022 [place] [facility] SED RATE, AUTOMATED Specimen Ty pe: BLOOD 01:43 PM [place] [facility] No comment enter ed. Ordering Provid er: DIMITRI CSRUGGS Report Released Date/Time: Feb 07, 2022 01:18 PM Reporting Lab: [facility] [address] [facility] [address] Performing Lab: [facility]ITALRHUNTSVILLE HOSP[facility] SYSTEMTRN [facility]ITALUS[facility] [address] [facility] [address] SED RATE, AUTOMATED 9 0-15 Feb 07, 2022 [place] [facility] URINALYSIS CLEAN Specimen Type: URINE 01:43 PM [facility] CATCH No comment enter ed. Ordering Provid er: DIMITRI SCRUGGS Report Released Date/Time: Feb 07, 2022 07:50 AM Reporting Lab: [facility]ITALRHUNTSVILLE [facility]OSP[facility] SYSTEMTRN [facility]ITALUS[facility] [address] [facility] [address] Performing Lab: [facility]ITALRHUNTSVILLE HOSP[facility] SYSTEMTRN [facility]ITALUS[facility] [address] [facility] [address] UA COLOR Yellow Yellow UA APPEARANCE Clear [...] AND DIFF Specimen Type: BLOOD 01:43 PM [facility]ITALUSE[facility] (AUTO) No comment enter ed. Ordering Provid er: DIMITRI SCRUGGS Report Released Date/Time: Feb 07, 2022 07:49 AM Reporting Lab: [place] [facility] [place] [facility] [address] [facility] [address] Performing Lab: [place] [facility] [place] [facility] [address] [facility] [address] WBC 6.22 4.50-11.00 RBC 5.24 4.23-5.66 HGB 15.7 12.8-17 HCT 44.8 39.2-50.4 MCV 85.5 82-99 MCHC 35.0 30.8-35.1 PLT 390 H 140-360 RDW-CV 11.4 L 12.0-16.0 Brantley, Abs 0.46 0.30-1.10 MCH 30.0 26.2-32.6 Neut % 60.2 Lymph % 30.1 Br[place]ley % 7.4 Eos % 1.1 Baso % 0.6 Neut, Abs 3.74 2.20-7.60 Lymph, Abs 1.87 1.00-3.20 Eos, Abs 0.07 0.03-0.44 Baso, Abs 0.04 0.01-0.13 Immature Gran % 0.6 Immature Gran, Abs 0.04 0.00-0.06 Jan 30, 2022 11:25 [facility] THYROID TOTAL T4 Specimen Ty pe: SERUM AM [place] [facility] No comment enter ed. Ordering Provid er: YINA HAGAN Report Released Date/Time: Jan 30, 2022 10:32 AM Reporting Lab: [facility] [place] [facility] [address] [facility] [address] Performing Lab: [place] [facility] [place] [facility] [address] [facility] [address] THYROID TOTAL T4 8.86 4.5-12.0 Jan 30, 2022 [facility] TESTOSTERONE, TOTAL Specimen Ty pe: SERUM 11:25 AM [place] [facility] No comment enter ed. Ordering Provid er: YINA HAGAN Report Released Date/Time: Jan 30, 2022 10:32 AM Reporting Lab: [facility] [place] [facility] [address] [facility] [address] Performing Lab: [place] [facility] [place] [facility] [address] [facility] [address] TESTOSTERONE, TOTAL 525.91 220.00-892 .00 Jan 30, 2022 11:25 [facility]TR[facility] LIVER FUNCTION Specimen Typ e: SERUM AM [facility] No comment enter ed. Ordering Provid er: YINA HAGAN Report Released Date/Time: Jan 30, 2022 10:32 AM Reporting Lab: [facility] [address] [facility] [address] Performing Lab: [facility] [address] [facility] [address] PROTEIN,TOTAL 7.2 6.0-8.3 ALBUMIN 4.0 3.5-5.0 ALKALINE PHOSPHATASE 57 40-150 AST 37 H 5-34 ALT 36 <6-55 BILIRUBIN, TOTAL 0.9 0.2-1.2 Jan 30, 2022 11:25 [facility] CBC AND DIFF Specimen Typ e: BLOOD AM [facility] (AUTO) No comment enter ed. Ordering Provid er: YINA HAGAN Report Released Date/Time: Jan 30, 2022 10:32 AM Reporting Lab: [facility] [address] [facility] [address] Performing Lab: [facility] [address] [facility] [address] WBC 2.65 L 4.50-11.00 RBC 5.29 4.23-5.66 HGB 15.7 12.8-17 HCT 46.2 39.2-50.4 MCV 87.3 82-99 MCHC 34.0 30.8-35.1 PLT 152 140-360 RDW-CV 11.5 L 12.0-16.0 MCH 29.7 26.2-32.6 Jan 30, 2022 [facility] HEMOGLOBIN A1C Specimen Type: BLOOD 11:25 AM [facility] PANEL Comment: Values obtained from A1C [...] HCS [address] [facility] [address] Performing Lab: [facility] [place] [facility] [address] [facility] [address] HEMOGLOBIN A1C 4.6 4.0-5.6 Jan 30, 2022 11:25 [facility] LIPID PANEL FASTING Specimen Type: SERUM AM [place] [facility] No comment enter ed. Ordering Provid er: YINA HAGAN Report Released Date/Time: Jan 30, 2022 10:32 AM Reporting Lab: [facility] [place] [facility] [address] [facility] [address] Performing Lab: [facility] [place] [facility] [address] [facility] [address] CHOLESTEROL 167 <7-199 TRIGLYCERIDE 112 0-150 LDL calculated 108 0-129 CHOL/HDL 4.5 HDL CHOLESTEROL 37 L 40-60 Jan 30, 2022 [facility] BASIC METABOLIC PANEL Specimen Type: SERUM 11:25 AM [place] [facility] (fasting) No comment enter ed. Ordering Provid er: YINA HAGAN Report Released Date/Time: Jan 30, 2022 10:32 AM Reporting Lab: [facility] [place] [facility] [address] [facility] [address] Performing Lab: [facility] [place] [facility] [address] [facility] [address] UREA NITROGEN 13 7-25 GLUCOSE 102 H [...] HCS [address] [facility] [address] Performing Lab: [facility] [place] [facility] [address] [facility] [address] TSH 0.82 0.35-5.00 Jan 30, 2022 11:25 [facility] VITAMIN D (25-[place]) Specimen T ype: SERUM AM [place] [facility] No comment enter ed. Ordering Provid er: YINA HAGAN Report Released Date/Time: Jan 30, 2022 10:32 AM Reporting Lab: [facility] [place] [facility] [address] [facility] [address] Performing Lab: [facility] [place] [facility] [address] [facility] [address] VITAMIN D (25-[place]) 38 20-50 Jan 30, 2022 11:25 [facility] [place] VITAMIN B12 S pecimen Type: SERUM AM [facility] No comment enter ed. Ordering Provid er: YINA HAGAN Report Released Date/Time: Jan 30, 2022 10:32 AM Reporting Lab: [facility] [place] [facility] [address] [facility] [address] Performing Lab: [facility] [place] [facility] [address] [facility] [address] VITAMIN B12 354 200-900 Jan 30, 2022 [facility] MICROSCOPIC AUTOMATED, Specimen Type: URINE 11:25 AM [facility] URINE No comment enter ed. Ordering Provid er: YINA HAGAN Report Released Date/Time: Jan 30, 2022 10:32 AM Reporting Lab: [facility] [place] [facility] [address] [facility] [address] Performing Lab: [facility] [place] [facility] [address] [facility] [address] UA WBC 0-5 0-5 UA MUCUS FEW Trace UA RBC 3-5 0-3 Jan 30, 2022 [facility] DIFFERENTIAL, MANUAL Specimen T ype: BLOOD 11:25 AM [facility] Comment: Giant platelets present. SENT FOR PATHOLOGY REVIEW Ordering Provid er: YINA HAGAN Report Released Date/Time: Jan 30, 2022 10:32 AM Reporting Lab: [facility]N [place] [facility] [address] [facility] [address] Performing Lab: [facility] [address] [facility] [address] SEGS 47 L 48-78 BANDS 5 0-10 LYMPHS 16 10-55 MONOS 23 H 2-12 VARIANT LYMPHOCYTES 5 0-6 OTHER/CELL 4 Jan 30, 2022 11:25 [facility] URINALYSIS S pecimen Type: URINE AM HCS No comment enter ed. Ordering Provid er: BENTLEY,YINA Report Released Date/Time: Jan 30, 2022 10:32 AM Reporting Lab: [facility]USE[facility] [address] [facility] [address] Performing Lab: [facility] [address] [facility] [address] UA COLOR Yellow Yellow UA APPEARANCE Clear [...] Type: SERUM 14, WSTRN SEROLOGY Comment: The [facility] SEROLOGY PANEL was performed using the FDA-approved Demetrius YINA Borrelia burdorferi modified two-tier test system. This modified methodology uses a second EIA in place of a western imm 2021 [place] PANEL unoblot assay, w [facility] the FDA has determined is substantially equivalent to or better than standard two-tier testing using western blot. Supplemental testing with a second EIA meets CDC guidelines for 11:25 [facility] Lyme disease aren ting. Performance [...] and local health departments, if applicable. The [place] State Form U RL is: http://www.[place].gov/dph/dru/dph/infectious_diseases/pdf_forms_/xn60_xfbg.pdf Ordering Provid er: BENTLEYYINA Report Released Date/Time: Feb 03, 2022 12:51 PM Reporting Lab: [facility] [place] [facility] [address] [facility] [address] Performing Lab: [place] [facility] [place] [facility] [address] [facility] [address] TIER 1 LYME SCREENING EIA Negative Nega tive LYME AB FINAL INTERPRETATION Negative N egative Jan 30, 2022 11:25 [place] CNT [facility] SMEAR CONSULT ([facility]) Specimen Type: BLOOD AM [place] [facility] Comment: SEE [id number] Ordering Provid er: YINA HAGAN Report Released Date/Time: Jan 30, 2022 12:51 PM Reporting Lab: [facility] [place] [facility] [address] [facility] [address] Performing Lab: [facility] [place] [facility] [address] [facility] [address] SMEAR CONSULT ([facility]) comment Vital Signs: All taken [...] VA-TOBACCO NEVER USED VA C NTRL WSTRN [facility] Encounter Notes: All associated encounter notes This section contains the clinical notes associated to the Encounter. Date/Time Encounter Note(s) Provider Source Jan 30, 2022 12:00 AM NONVA NOTE: [facility] LOCAL TITLE: NON-VA HOSPITALIZATIONS/ER [place] [facility] STANDARD TITLE: NONVA NOTE DATE OF NOTE: JAN 30, 2022 ENTRY DATE: FEB 15@11:28:50 AUTHOR: BRY ZEE EXP COSIGNER: URGENCY: STATUS: COMPLETED VistA Imaging - Scanned Document SCANNED DOCUMENT SIGNATURE NOT REQUIRED Electronically Filed: 02/15/2022 by: BRY ZEE THEATER EDUCATION TEACHER Jan 30, 2022 12:00 AM NONVA NOTE: [facility] LOCAL TITLE: NON-VA HOSPITALIZATIONS/ER [place] [facility] STANDARD TITLE: NONVA NOTE DATE OF NOTE: JAN 30, 2022 ENTRY DATE: FEB 24@08:19:20 AUTHOR: AUSTIN SOSA EXP COSIGNER: URGENCY: STATUS: COMPLETED VistA Imaging - Scanned Document SCANNED DOCUMENT SIGNATURE NOT REQUIRED Electronically Filed: 02/24/2022 by: AUSTIN SOSA MANUFACTURER REPRESENTATIVE
--- OUTSIDE RECORDS SUMMARY | 2022-04-18 10:23 | XMS_ITS | Encounter Summary ---
:1990 Author Organization Department of [facility] rs Address [address] [place] [address] Support Name Relationship Address Phone TETE TRAN Unavailable [address] [facility] [place] [address] THOMAS MONTOYA Unavailable [address] [facility] [place] [address] Insurance Providers: All historical and current Section [...] Name to Policy Number Ojeda [facility] Aug 03, [id number] [phone] ALIAROSINA Mane PATIENT BEE GIMENEZ 2019 [id number] STEPHANIE JOHNSON [facility] ORGANIZ E DEPT Selected Encounter This section includes the information on record at [facility] for the Encounter. Date/Time Encounter Type Encounter Reason Provider Source Description Feb 25, 2022 COMMUNITY/WORK MH CWT/SE ICD-10-CM Z56.0 ROCAEL GREGORIO 01:00 PM REINTEGRATION Unemployment, unspecified with Provider Comments: Unemployment, unspecified IHE Encounter Template Text not used by [facility] Assessments - Encounter Diagnoses This section includes the primary and secondary diagnoses documented for the Encounter. Date/Time Primary/Secondary Diagnosis Name Provider Source Diagnosis Feb 25, 2022 PRIMARY Unemployment, ROCAEL GREGORIO [facility] WSTR N 01:56 PM unspecified [place] [facility] Plan of Treatment: Future Appointments (+ [...] 20 appointments. The data comes from all [facility] treatment facilities. Appointment Date/Time Appointment Type Appointment Facili ty Name Feb 27, 2022 02:00 PM AMBULATORY - PSYCHIATRY [facility] [place] [facility] Mar 17, 2022 03:00 PM AMBULATORY - PSYCHIATRY [facility] [place] [facility] Mar 28, 2022 09:00 AM AMBULATORY - PSYCHIATRY [facility] [place] [facility] Apr 17, 2022 01:00 PM AMBULATORY - NONE [facility] [place] [facility] Apr 25, 2022 09:00 AM AMBULATORY - PSYCHIATRY [facility] [place] [facility] May 09, 2022 09:00 AM AMBULATORY - PSYCHIATRY [facility] [place] [facility] May 23, 2022 09:00 AM AMBULATORY - PSYCHIATRY [facility] [place] [facility] Jul 17, 2022 08:30 AM AMBULATORY - NONE [facility] [place] [facility] Aug 28, 2022 09:30 AM AMBULATORY - MEDICINE [facility] [place] [facility] Lab Results: +/- 30 days of the encounter This section includes the Chemistry and Hematology Lab Results on record with [facility] for the patient. Radiology Reports and Pathology Reports are provided separately, in subsequent sections.Lab Results This section contains the Chemistry/Hematology Results that were resulted 30 days before or 30 daysafter the date of the Encounter. Date/Time Source Result Type Result - Unit Interpretation Reference Range Comment Feb 07, 2022 [facility] BRUCELLA ANTIBODY, Specimen Typ e: SERUM 01:43 PM [facility] AGGLUTINATION Comment: REFERE NCE RANGE: <1:80 [...] performance characteri stics have been determined by [employer]. It has not been cleared or approved by FDA. This assay has been validated pursuant to the CLIA regulations and is used for clinical purposes. Test perfor med by [facility] [address] [place] [address] Electronic Musical Instrument Repairer: Alejandrina Quick MD,PHD,[place]IR[place]IE Test performed at [facility] [place], [place]. Ordering Provid er: DIMITRI SCRUGGS Report Released Date/Time: Feb 07, 2022 01:27 PM Reporting Lab: [facility] [address] [facility] [address] Performing Lab: [facility] [address], [address] [facility] [address] BRUCELLA ANTIBODY, AGGLUTINATION <1:80 Feb 07, 2022 [facility] BABESIA MICROTI Specimen Type: SERUM 01:43 PM [facility] ANTIBODIES (IgG, Comment: REFER ENCE RANGE: [...] mixed infections also involving Borrelia burgdorferi. This arne t was developed and its analytical performance characteristics have been determined by [facility] [place], [place]. It has not been cleared or approved by the U.S. Food and Drug A dministration. T his assay has been validated pursuant to the CLIA regulations and is used for clinical purposes. Test Performed by [facility], [facility] [place], [address] [address] [place], [place] Ronald Abdul M.D., Ph.D., Director of Laboratories , CLIA [id number] TEST PERFORMED AT: , Ordering Provid er: DIMITRI SCRUGGS Report Released Date/Time: Feb 07, 2022 01:29 PM Reporting Lab: [facility] [address] [facility] [place] [address] Performing Lab: [facility] [address], [address] [place] [address] Babesia microti IgG <1:64 SEE BELOW Babesia microti IgM <1:20 SEE BELOW BABESIA MICROTI AB INTER SEE NOTE Feb 07, 2022 [facility] ANAPLASMA AND Specimen Type: SERUM 01:43 PM [facility] EHRLICHIA AB PANEL Comment: REF ERENCE [...] performance c haracteristics have been determined by [facility]. It has not been cleared or [...] analytical performance characteristics have been determined by [facility] [place], [place]. It has not been cleared or approved by the U.S. Food and Drug Administration. This assay has been validated pursuant to the CLIA regulations and is used for clinical purposes. Test Performed by [facility] [employer] [place], [address] [place] [address] Ronald Abdul M.D., Ph.D., Director of Laboratories , CLIA [id number] TEST PERFORMED AT: , Ordering Provid er: DIMITRI SCRUGGS Report Released Date/Time: Feb 07, 2022 01:33 PM Reporting Lab: [facility] [address] [facility] [address] Performing Lab: [facility] [address] [facility], [address] [place] [address] E. chaffeensis Ab IgG <1:64 SEE BELO W E. chaffeensis Ab IgM <1:20 SEE BELO W A.phagocytophilum Ab IgG <1:64 SEE B ELOW A.phagocytophilum Ab IgM <1:20 SEE B ELOW EHRLICHIA CHAFFEENSIS AB INTER SEE NOTE A. phagocytophilum inter SEE NOTE Feb 07, 2022 [facility] BABESIA MICROTI, Specimen Type: BLOOD 01:43 PM [facility] DNA PCR(WHV) Comment: The an alytical performance characteristics of this test have been determined by [facility]. It has not been cleared by the FDA. Ordering Provid er: DIMITRI SCRUGGS Report Released Date/Time: Feb 07, 2022 01:29 PM Reporting Lab: [facility] [address] [facility] [address] Performing Lab: [facility] [address] [facility] [address] BABESIA MICROTI, DNA PCR(WHV) Not Detected Not Detected Feb 07, 2022 [facility] RICKETTSIA ANTIBODY Specimen Ty pe: SERUM 01:43 PM [employer] [facility] PANEL (Q) Comment: Test P erformed by [employer], [facility] [place], [address] [place], [place] Ronald Abdul M.D., Ph.D., Director of Laboratories , CLIA [id number] TEST PERFORMED AT: , Ordering Provid er: DIMITRI SCRUGGS Report Released Date/Time: Feb 07, 2022 01:33 PM Reporting Lab: [facility] WSTRN [facility] [address] [facility] [place] [address] Performing Lab: [facility] [address], [address] [facility] [address] RMSF IgG Not Detected Not Detected RMSF IgM Not Detected Not Detected R. typhi IgM Not Detected Not Detected Jose [facility] LYME Specimen Type: SERUM 22, WSTRN SEROLOGY Comment: The re sults are supportive evidence for the presence of antibodies and exposure to Borrelia burgdorferi. The LYME SEROLOGY PANEL was performed using the FDA-approved Demetrius YINA Borrelia burdor 2021 [facility] PANEL feri modified tw o-tier test system. This modified methodology uses a second EIA in place of a western immunoblot assay, which the FDA has determined is substantially equivalent to or better than stand 01:43 [facility] damaris two-tier aren ting using western blot. Supplemental testing with a second EIA meets CDC guidelines for Lyme disease testing. Performance characteristics of the panel were validated at the [facility] lar Diagnostics Laboratory. Results are considered [...] and local health departments, if applicable. The [place] State Form URL is: http://www.[place].gov/dp/dru/dph/infectious_diseases/pdf_forms_/fq61_wise.pdf Ordering Provid er: DIMITRI SCRUGGS Report Released Date/Time: Feb 07, 2022 07:49 AM Reporting Lab: [facility] [place] [facility] [address] [facility] [address] Performing Lab: [facility] [place] [facility] [address] [facility] [address] TIER 1 LYME SCREENING EIA Presumptive Positive Negative LYME AB FINAL INTERPRETATION POSITIVE HH N egative TIER 2 LYME EIA,IgG Negative Negative TIER 2 LYME EIA,IgM POSITIVE HH Negative Feb 07, 2022 01:43 PM [facility] [place] FOLATE Specimen Type: SERUM [facility] No comment enter ed. Ordering Provid er: DIMITRI SCRUGGS Report Released Date/Time: Feb 07, 2022 07:49 AM Reporting Lab: [facility] [place] [facility] [address] [facility] [address] Performing Lab: [facility] [place] [facility] [address] [facility] [address] FOLATE 12.99 >5.2 Feb 07, 2022 [facility] C REACTIVE PROTEIN Specimen Typ e: SERUM 01:43 PM [facility] ([facility]) Comment: Refere nce range changed on 01/07/11 [facility] reference ranges for ages >17 years: [...] Feb 07, 2022 01:18 PM Reporting Lab: [facility] [place] [facility] [address] [facility] [address] Performing Lab: [facility] [address] [facility] [address] C REACTIVE PROTEIN (CRPH) 2.32 See eval. Feb 07, 2022 [facility] CORA SCREEN/TITER Specimen Type: SERUM 01:43 PM [facility] No comment enter ed. Ordering Provid er: DIMITRI SCRUGGS Report Released Date/Time: Feb 07, 2022 01:29 PM Reporting Lab: [facility] [address] [facility] [address] Performing Lab: [facility] [address] [facility] [address] CORA SCREEN NEG NEG <1:40 Feb 07, 2022 [facility] MALARIA/BABESIA EXAM Specimen T ype: BLOOD 01:43 PM [facility] Comment: Due to the cyclical shed rates of these parasites, one negative specimen does not rule out the possibility of a parasitic infection. Obtain specimens at 6-hour intervals for 36 hours for a com prehensive exami nation. Test Performed by [facility], [employer] [facility], [address] [place] [address] Ronald Abdul M.D., Ph.D., Director of Laboratories , [place] [id number] TEST PERFORMED AT: , Ordering Provid er: DIMITRI SCRUGGS Report Released Date/Time: Feb 07, 2022 01:29 PM Reporting Lab: [facility] [place] [facility] [address] [facility] [address] Performing Lab: [facility]ITAL[facility]ITAL[facility] [address], [address] [facility] [address] MALARIA/BABESIA EXAM Negative Negative Feb 07, 2022 01:43 [facility] VITAMIN B12 Specimen Typ e: SERUM PM [facility] No comment enter ed. Ordering Provid er: DIMITRI SCRUGGS Report Released Date/Time: Feb 07, 2022 07:49 AM Reporting Lab: [facility]PO[facility] HOSPITALN [facility] [address] [facility] [address] Performing Lab: [facility]CR[facility]ALTHTRN [facility]ITAL[facility] [address] [facility] [address] VITAMIN B12 [phone] Feb 07, 2022 [facility] SED RATE, AUTOMATED Specimen Ty pe: BLOOD 01:43 PM [facility] No comment enter ed. Ordering Provid er: DIMITRI SCRUGGS Report Released Date/Time: Feb 07, 2022 01:18 PM Reporting Lab: [facility]ALTHTRN [facility] [address] [facility] [address] Performing Lab: [facility] HEALTHTRN [facility]ITALUSE[facility] [address] [facility] [address] SED RATE, AUTOMATED 9 0-15 Feb 07, 2022 [facility] URINALYSIS CLEAN Specimen Type: URINE 01:43 PM [facility] CATCH No comment enter ed. Ordering Provid er: DIMITRI SCRUGGS Report Released Date/Time: Feb 07, 2022 07:50 AM Reporting Lab: [facility]OSPITALN [facility]ITAL[facility] [address] [facility] [address] Performing Lab: [facility] HEALTHTRN [facility]ITAL[facility] [address] [facility] [address] UA COLOR Yellow Yellow UA APPEARANCE Clear Clear UA GLUCOSE Negative Negative UA KETONES Negative Neg UA BLOOD Negative Neg UA PROTEIN Negative Neg UA NITRITE Negative Neg UA BILIRUBIN Negative Neg UA SPECIFIC GRAVITY 1.017 1.016-1.02 2 UA pH 6.0 5.0-9.0 UA UROBILINOGEN <2.0 <2.0 UA LEUKOCYTE ESTERASE Negative Neg Feb 07, 2022 [facility] CBC AND DIFF Specimen Type: BLOOD 01:43 PM [facility] (AUTO) No comment enter ed. Ordering Provid er: DIMITRI SCRUGGS Report Released Date/Time: Feb 07, 2022 07:49 AM Reporting Lab: [facility]CR[facility] HEALTHTRN [facility]ITAL[facility] [address] [facility] [address] Performing Lab: [facility]ITALUSE[facility] [address] [facility] [address] WBC 6.22 4.50-11.00 RBC 5.24 4.23-5.66 HGB 15.7 12.8-17 HCT 44.8 39.2-50.4 MCV 85.5 82-99 MCHC 35.0 30.8-35.1 PLT 390 H 140-360 RDW-CV 11.4 L 12.0-16.0 Vermilion, Abs 0.46 0.30-1.10 MCH 30.0 26.2-32.6 Neut % 60.2 Lymph % 30.1 Vermilion % 7.4 Eos % 1.1 Baso % 0.6 Neut, Abs 3.74 2.20-7.60 Lymph, Abs 1.87 1.00-3.20 Eos, Abs 0.07 0.03-0.44 Baso, Abs 0.04 0.01-0.13 Immature Gran % 0.6 Immature Gran, Abs 0.04 0.00-0.06 Jan 30, 2022 11:25 [facility] THYROID TOTAL T4 Specimen Ty pe: SERUM AM [facility] No comment enter ed. Ordering Provid er: YINA HAGAN Report Released Date/Time: Jan 30, 2022 10:32 AM Reporting Lab: [facility] [address] [facility] [address] Performing Lab: [facility]ALTHTRN [facility]ITAL[facility] [address] [facility] [address] THYROID TOTAL T4 8.86 4.5-12.0 Jan 30, 2022 [facility] TESTOSTERONE, TOTAL Specimen Ty pe: SERUM 11:25 AM [facility] No comment enter ed. Ordering Provid er: YINA HAGAN Report Released Date/Time: Jan 30, 2022 10:32 AM Reporting Lab: [facility] [place] [facility] [address] [facility] [address] Performing Lab: [facility] [address] [facility] [address] TESTOSTERONE, TOTAL 525.91 220.00-892 .00 Jan 30, 2022 [facility] HEMOGLOBIN A1C Specimen Type: BLOOD 11:25 AM [facility] PANEL Comment: Values obtained from A1C measurements can vary. For typical A1C assays, a reported value of 7.0 could actually be between 6.72 and 7.28 if measured by a reference method. A reported value of 9 .0 could actuall y be between 8.73 and 9.27. Ref: http://www.ngsp.org/CAPdata.asp Ordering Provid er: YINA HAGAN Report Released Date/Time: Jan 30, 2022 10:32 AM Reporting Lab: [facility] [place] [facility] [address] [facility] [address] Performing Lab: [facility] [place] [facility] [address] [facility] [address] HEMOGLOBIN A1C 4.6 4.0-5.6 Jan 30, 2022 11:25 [facility] LIPID PANEL FASTING Specimen Type: SERUM AM [place] [facility] No comment enter ed. Ordering Provid er: YINA HAGAN Report Released Date/Time: Jan 30, 2022 10:32 AM Reporting Lab: [facility] [place] [facility] [address] [facility] [address] Performing Lab: [facility] [place] [facility] [address] [facility] [address] CHOLESTEROL 167 <7-199 TRIGLYCERIDE 112 0-150 LDL calculated 108 0-129 CHOL/HDL 4.5 HDL CHOLESTEROL 37 L 40-60 Jan 30, 2022 11:25 [facility] LIVER FUNCTION Specimen Typ e: SERUM AM [place] [facility] No comment enter ed. Ordering Provid er: YINA HAGAN Report Released Date/Time: Jan 30, 2022 10:32 AM Reporting Lab: [facility] [place] [facility] [address] [facility] [address] Performing Lab: [facility] [place] [facility] [address] [facility] [address] PROTEIN,TOTAL 7.2 6.0-8.3 ALBUMIN 4.0 3.5-5.0 ALKALINE PHOSPHATASE 57 40-150 AST 37 H 5-34 ALT 36 <6-55 BILIRUBIN, TOTAL 0.9 0.2-1.2 Jan 30, 2022 11:25 [facility] CBC AND DIFF Specimen Typ e: BLOOD AM [place] [facility] (AUTO) No comment enter ed. Ordering Provid er: IYNA HAGAN Report Released Date/Time: Jan 30, 2022 10:32 AM Reporting Lab: [facility] [place] [facility] [address] [facility] [address] Performing Lab: [facility] [place] [facility] [address] [facility] [address] WBC 2.65 L 4.50-11.00 RBC 5.29 4.23-5.66 [...] CNTRL WSTRN [place] [facility] [address] [facility] [address] Performing Lab: [facility] [place] [facility] [address] [facility] [address] UREA NITROGEN 13 7-25 GLUCOSE 102 H [...] CNTRL WSTRN [place] [facility] [address] [facility] [address] Performing Lab: [facility] [place] [facility] [address] [facility] [address] TSH 0.82 0.35-5.00 Jan 30, 2022 11:25 [facility] [place] VITAMIN B12 S pecimen Type: SERUM AM HCS No comment enter ed. Ordering Provid er: YINA HAGAN Report Released Date/Time: Jan 30, 2022 10:32 AM Reporting Lab: [facility] [place] [facility] [address] [facility] [address] Performing Lab: [facility] [place] [facility] [address] [facility] [address] VITAMIN B12 354 200-900 Jan 30, 2022 11:25 [facility] VITAMIN D (25-[place]) Specimen T ype: SERUM AM [place] [facility] No comment enter ed. Ordering Provid er: YINA HAGAN Report Released Date/Time: Jan 30, 2022 10:32 AM Reporting Lab: [facility] [place] [facility] [address] [facility] [address] Performing Lab: [facility] [place] [facility] [address] [facility] [address] VITAMIN D (25-[place]) 38 20-50 Jan 30, 2022 [facility] MICROSCOPIC AUTOMATED, Specimen Type: URINE 11:25 AM [facility] URINE No comment enter ed. Ordering Provid er: YINA HAGAN Report Released Date/Time: Jan 30, 2022 10:32 AM Reporting Lab: [facility] [place] [facility] [address] [facility] [address] Performing Lab: [facility] [place] [facility] [address] [facility] [address] UA WBC 0-5 0-5 UA MUCUS FEW Trace UA RBC 3-5 0-3 Jan 30, 2022 [facility] DIFFERENTIAL, MANUAL Specimen T ype: BLOOD 11:25 AM [place] [facility] Comment: Giant platelets present. SENT FOR PATHOLOGY REVIEW Ordering Provid er: YINA HAGAN Report Released Date/Time: Jan 30, 2022 10:32 AM Reporting Lab: [facility] [place] [facility] [address] [facility] [address] Performing Lab: [facility] [place] [facility] [address] [facility] [address] SEGS 47 L 48-78 BANDS 5 0-10 LYMPHS 16 10-55 MONOS 23 H 2-12 VARIANT LYMPHOCYTES 5 0-6 OTHER/CELL 4 Jan 30, 2022 11:25 [facility] [place]N [place] URINALYSIS S pecimen Type: URINE AM HCS No comment enter ed. Ordering Provid er: BENTLEYYINA Report Released Date/Time: Jan 30, 2022 10:32 AM Reporting Lab: [facility] [address] [facility] [address] Performing Lab: [facility] [address] [facility] [address] UA COLOR Yellow Yellow UA APPEARANCE Clear Clear UA GLUCOSE Negative Negative UA KETONES Negative Neg UA BLOOD Moderate Neg UA PROTEIN 30 Neg UA NITRITE Negative Neg UA BILIRUBIN Negative Neg UA SPECIFIC GRAVITY 1.027 H 1.016-1.02 2 UA pH 5.0 5.0-9.0 UA UROBILINOGEN <2.0 <2.0 UA LEUKOCYTE ESTERASE Negative Neg Jan [facility] LYME Specimen Type: SERUM 14, WSTRN SEROLOGY Comment: The [facility] SEROLOGY PANEL was performed using the FDA-approved [employer] YINA Borrelia burdorferi modified two-tier test system. This modified methodology uses a second EIA in place of a western imm 2021 [place] PANEL unoblot assay, w hich the FDA has determined is substantially equivalent to or better than standard two-tier testing using western blot. Supplemental testing with a second EIA meets CDC guidelines for 11:25 [facility] Lyme disease aren ting. Performance characteristics of the panel were validated at the [facility]. Results are considered [...] and local health departments, if applicable. The [place] State Form U RL is: http://www.ga.gov/dp/dru/dp/infectious_diseases/pdf_forms_/ya69_gmti.pdf Ordering Provid er: BENTLEYYINA Report Released Date/Time: Feb 03, 2022 12:51 PM Reporting Lab: [facility] [place] [facility] [address] [facility] [address] Performing Lab: [facility] [place] [facility] [address] [facility] [address] TIER 1 LYME SCREENING EIA Negative Nega tive LYME AB FINAL INTERPRETATION Negative N egative Jan 30, 2022 11:25 [facility] SMEAR CONSULT ([facility]) Specimen Type: BLOOD AM [place] [facility] Comment: SEE HE [id number] Ordering Provid er: YINA HAGAN Report Released Date/Time: Jan 30, 2022 12:51 PM Reporting Lab: [facility] [address] [facility] [id number] Performing Lab: [facility] [address] [facility] [id number] SMEAR CONSULT ([facility]) comment Social History: Smoking Status (Most current) and Tobacco Use (All prior to encounter date) This section includes the most current, and the historical, smoking and tobacco-related health factors from the [facility] where the Encounter took place.Current Smoking Status This section includes the most current smoking, or tobacco-related health factor, from the [facility] where the Encounter took place. Date/Time Current Smoking Status Comment Facility May 23, 2021 02:30 PM VA-TOBACCO NEVER USED [facility] [place] [facility] Encounter Notes: All associated encounter notes This section contains the clinical notes associated to the Encounter. Date/Time Encounter Note(s) Provider Source Feb 25, 2022 01:48 PM TELEHEALTH NOTE: ROCAEL GREGORIO [facility] LOCAL TITLE: [facility] [place] [facility] STANDARD TITLE: TELEHEALTH NOTE DATE OF NOTE: FEB 25, 2022@13:48 ENTRY DATE: FEB 25, 2022@13:48:43 AUTHOR: ROCAEL GREGORIO COSIGNER: URGENCY: STATUS: COMPLETED [facility] ([facility]) Standard Documentation [facility] Clinician Resources Only: E911 (Emergency Call Relay Center): [phone] [facility] Crisis Line - ( [phone]) press #1. SUSIE Suicide Coordinator [phone], Ext. [phone]; Back-up Ext. [phone] Supervisor [employer] of the Day(AOD), Henry RICHARDS [phone], Ext. [phone] Introduction: Visit is being conducted by [facility] [facility]. Stewart identified with 2 identifiers: [X] Full Name [X] Date of [ ] [facility] ID Card Emergency Plan: confirmed and/or pro vided the following information in case of emergency or technology failure. PATIENT PHONE - PHONE NUMBER [CELLULAR] - Is patient phone number correct, if not, enter b elow: Stewart's phone number: GEORGE RUIARTE [address], [place], [address] Stewart's present location and address for appoi ntment: Same as above 's emergency contact name and phone numbe r: Thomas Frank reported that location is private and fe: Yes Informed Consent: Stewart informed of the risks and benefits of [facility] video care. has the right to refuse video services. If refuses video visit, a tarb-ro-gblo visit will be scheduled. verbalized consent for this video visit: Yes provided consent for any other persons p resent for visit: N/A If yes, who and relationship to patient: Secure visit: Visit was locked for security and privacy:Yes Voc Rehab Progre ss Note [employer] Program: Community Based Employment Service s Date of Encounter: 02/25/2022 Location of Visit: C Time spent with Stewart:30 Minutes [employer] Employment Plan Update Goal: A position that has upward progression opp ortunities Objective: To obtain competitive employm ent in the community within the next 6 months. Update: is open to any possible employme nt opportunity Visit Narrative: [employer] and Stewart reviewed mattie buchanan his new resume created by [employer]. He was pleased and help ful adding information that will be included in the next version. Next Steps: [employer] will update resume with changes based on new information [employer] will job search and provide leads to Vetera n [employer] and will meet again later this week /ivelisse/ ROCAEL GREGORIO GOVERNMENT OPERATIONS CONSULTANT Signed: 02/25/2022 13:56
--- OUTSIDE RECORDS SUMMARY | 2022-04-18 10:23 | XMS_ITS ---
:1990 Author Organization Department of [facility] rs Address [address] [place] [address] Support Name Relationship Address Phone TETE TRAN Unavailable [address] [place] [address] THOMAS MONTOYA Unavailable [address] [place] [place] [address] Insurance Providers: All historical and current Section [...] to Policy Number Ojeda [facility] Aug 03, [id number] [phone] ALIAROSINA Mane PATIENT BEE GIMENEZ [id number] STEPHANIE JOHNSON [facility] Selected Encounter This section includes the information on record at [place] for the Encounter. Date/Time Encounter Type Encounter Reason Provider Source Description Feb 26, 2022 COMMUNITY/WORK TELEPHONE/MH VOC ICD-10-CM Z56.0 ROCAEL GREGORIO 09:56 AM [facility]ISTANCE Unemployment, unspecified with Provider Comments: Unemployment, unspecified IHE Encounter Template Text not used by [place] Assessments - Encounter Diagnoses This section includes the primary and secondary diagnoses documented for the Encounter. Date/Time Primary/Secondary Diagnosis Name Provider Source Diagnosis Feb 26, 2022 PRIMARY JG Dietz LINDA [facility] N 09:56 AM unspecified [facility] Plan of Treatment: Future Appointments (+ [...] 27, 2022 02:00 PM AMBULATORY - PS[place]CHIATRY [place] [facility] [place] [facility] Mar 17, 2022 03:00 PM AMBULATORY - PS[place]CHIATRY [place] [facility] [place] [facility] Mar 28, 2022 09:00 AM AMBULATORY - PS[place]CHIATRY [place] [facility] [place] [facility] Apr 17, 2022 01:00 PM AMBULATORY - NONE [place] [facility] [place] [facility] Apr 25, 2022 09:00 AM AMBULATORY - PSYCHIATRY [place] [facility] [place] [facility] May 09, 2022 09:00 AM AMBULATORY - PSYCHIATRY [place] [facility] [place] [facility] May 23, 2022 09:00 AM AMBULATORY - PSYCHIATRY [place] [facility] [place] [facility] Jul 17, 2022 08:30 AM AMBULATORY - NONE [place] [facility] [place] [facility] Aug 28, 2022 09:30 AM AMBULATORY - MEDICINE [place] [facility] [place] [facility] Lab Results: +/- 30 days of the [...] Interpretation Reference Range Comment Feb 07, 2022 [facility] BRUCELLA ANTIBODY, Specimen Typ e: SERUM 01:43 PM [facility] AGGLUTINATION Comment: REFERE NCE RANGE: <1:80 The [...] performance characteri stics have been determined by [employer]. It has not been cleared or approved by FDA. This assay has been validated pursuant to the CLIA regulations and is used for clinical purposes. Test perfor med by [facility] [address] [place] [address] Waiter/Waitress Second Class: Alejandrina Quick MD,PHD,[place] Test performed at [facility], [place]. Ordering Provid er: DIMITRI SCRUGGS Report Released Date/Time: Feb 07, 2022 01:27 PM Reporting Lab: [facility] [address] [facility] [address] Performing Lab: [facility] [address], [address] [facility] [address] BRUCELLA ANTIBODY, AGGLUTINATION <1:80 Feb 07, 2022 [facility] BABESIA MICROTI Specimen Type: SERUM 01:43 PM [facility] ANTIBODIES (IgG, Comment: REFER ENCE RANGE: [...] analytical performance characteristics have been determined by [employer] [place], [place]. It has not been cleared or approved by the U.S. Food and Drug A dministration. T his assay has been validated pursuant to the CLIA regulations and is used for clinical purposes. Test Performed by [facility], [place], [address] [address] [place], [place] Ronald Abdul M.D., Ph.D., Director of Laboratories , CLIA [id number] TEST PERFORMED AT: , Ordering Provid er: DIMITRI SCRUGGS Report Released Date/Time: Feb 07, 2022 01:29 PM Reporting Lab: [facility] [address] [facility] [place] [place] [address] Performing Lab: [facility] [address] [place], [address] [place] [address] Babesia microti IgG <1:64 SEE BELOW Babesia microti IgM <1:20 SEE BELOW BABESIA MICROTI AB INTER SEE NOTE Feb 07, 2022 [facility] ANAPLASMA AND Specimen Type: SERUM 01:43 PM [facility] EHRLICHIA AB PANEL Comment: REF ERENCE [...] performance c haracteristics have been determined by [place]. It has not been cleared or [...] analytical performance characteristics have been determined by [employer] [place], [place]. It has not been cleared or approved by the U.S. Food and Drug Administration. This assay has been validated pursuant to the CLIA regulations and is used for clinical purposes. Test Performed by [facility] [employer] [place], [address] [place] [address] Ronald Abdul M.D., Ph.D., Director of Laboratories , CLIA [id number] TEST PERFORMED AT: , Ordering Provid er: DIIMTRI SCRUGGS Report Released Date/Time: Feb 07, 2022 01:33 PM Reporting Lab: [facility] [address] [facility] [address] Performing Lab: [facility] [address] [facility], [address] [place] [address] E. chaffeensis Ab IgG <1:64 SEE BELO W E. chaffeensis Ab IgM <1:20 SEE BELO W A.phagocytophilum Ab IgG <1:64 SEE B ELOW A.phagocytophilum Ab IgM <1:20 SEE B ELOW EHRLICHIA CHAFFEENSIS AB INTER SEE NOTE A. phagocytophilum inter SEE NOTE Feb 07, 2022 [facility] BABESIA MICROTI, Specimen Type: BLOOD 01:43 PM [facility] DNA PCR(WHV) Comment: The an alytical performance characteristics of this test have been determined by [facility]. It has not been cleared by the FDA. Ordering Provid er: DIMITRI SCRUGGS Report Released Date/Time: Feb 07, 2022 01:29 PM Reporting Lab: [facility] [address] [facility] [address] Performing Lab: [facility] [address] [facility] [address] BABESIA MICROTI, DNA PCR(WHV) Not Detected Not Detected Feb 07, 2022 [facility] RICKETTSIA ANTIBODY Specimen Ty pe: SERUM 01:43 PM [employer] [facility] PANEL (Q) Comment: Test P erformed by [employer], [place], [address] [place], [place] Ronald Abdul M.D., Ph.D., Director of Laboratories , CLIA [id number] TEST PERFORMED AT: , Ordering Provid er: DIMITRI SCRUGGS Report Released Date/Time: Feb 07, 2022 01:33 PM Reporting Lab: [facility] W[facility]N [facility] [address] [facility] [place] [address] Performing Lab: [facility] [address] [place], [address] [facility] [address] RMSF IgG Not Detected Not Detected RMSF IgM Not Detected Not Detected R. typhi IgM Not Detected Not Detected Jose [facility] LYME Specimen Type: SERUM 22, WSTRN SEROLOGY Comment: The re sults are supportive evidence for the presence of antibodies and exposure to Borrelia burgdorferi. The LYME SEROLOGY PANEL was performed using the FDA-approved Demetrius YINA Borrelia burdor 2021 [facility] PANEL feri modified tw o-tier test system. This modified methodology uses a second EIA in place of a western immunoblot assay, which the FDA has determined is substantially equivalent to or better than stand 01:43 [facility] damaris two-tier aren ting using western blot. Supplemental testing with a second EIA meets CDC guidelines for Lyme disease testing. Performance characteristics of the panel were validated at the [facility] lar Diagnostics Laboratory. Results are considered [...] and local health departments, if applicable. The [place] State Form URL is: http://www.[place].gov/dp/dru/dph/infectious_diseases/pdf_forms_/zm25_sjfm.pdf Ordering Provid er: DIMITRI SCRUGGS Report Released Date/Time: Feb 07, 2022 07:49 AM Reporting Lab: [place] [facility] [place] [facility] [address] [facility] [address] Performing Lab: [place] [facility] [place] [facility] [address] [facility] [address] TIER 1 LYME SCREENING EIA Presumptive Positive Negative LYME AB FINAL INTERPRETATION POSITIVE HH N egative TIER 2 LYME EIA,IgG Negative Negative TIER 2 LYME EIA,IgM POSITIVE HH Negative Feb 07, 2022 01:43 PM [place] [facility] FOLATE Specimen Type: SERUM [facility] No comment enter ed. Ordering Provid er: DIMITRI SCRUGGS Report Released Date/Time: Feb 07, 2022 07:49 AM Reporting Lab: [place] [facility] [place] [facility] [address] [facility] [address] Performing Lab: [place] [facility] [place] [facility] [address] [facility] [address] FOLATE 12.99 >5.2 Feb 07, 2022 [place] [facility] C REACTIVE PROTEIN Specimen Typ e: SERUM 01:43 PM [facility] ([facility]) Comment: Refere nce range changed on 01/07/11 [facility] reference ranges for ages >17 years: hsCRP [...] Feb 07, 2022 01:18 PM Reporting Lab: [place] [facility] [place] [facility] [address] [facility] [address] Performing Lab: [facility] [address] [facility] [address] C REACTIVE PROTEIN (CRPH) 2.32 See eval. Feb 07, 2022 [facility] MALARIA/BABESIA EXAM Specimen T ype: BLOOD 01:43 PM [facility] Comment: Due to the cyclical shed rates of these parasites, one negative specimen does not rule out the possibility of a parasitic infection. Obtain specimens at 6-hour intervals for 36 hours for a com prehensive exami nation. Test Performed by [facility], [facility] [facility], [address] [place] [address] Ronald Abdul M.D., Ph.D., Director of Laboratories , CLIA [id number] TEST PERFORMED AT: , Ordering Provid er: DIMITRI SCRUGGS Report Released Date/Time: Feb 07, 2022 01:29 PM Reporting Lab: [facility] [address] [facility] [address] Performing Lab: [facility] [address] [facility] [facility], [address] [facility] [address] MALARIA/BABESIA EXAM Negative Negative Feb 07, 2022 [facility] CORA SCREEN/TITER Specimen Type: SERUM 01:43 PM [facility] No comment enter ed. Ordering Provid er: DIMITRI SCRUGGS Report Released Date/Time: Feb 07, 2022 01:29 PM Reporting Lab: [facility] [place] [facility] [address] [facility] [address] Performing Lab: [facility]ITALRCO[facility]TRN [facility] [address] [facility] [address] CORA SCREEN NEG NEG <1:40 Feb 07, 2022 01:43 [facility] VITAMIN B12 Specimen Typ e: SERUM PM [facility] No comment enter ed. Ordering Provid er: DIMITRI SCRUGGS Report Released Date/Time: Feb 07, 2022 07:49 AM Reporting Lab: [facility] [address] [facility] [address] Performing Lab: [facility]TRN [facility] [address] [facility] [address] VITAMIN B12 593 200-900 Feb 07, 2022 [place] [facility] SED RATE, AUTOMATED Specimen Ty pe: BLOOD 01:43 PM [facility] No comment enter ed. Ordering Provid er: DIMITRI SCRUGGS Report Released Date/Time: Feb 07, 2022 01:18 PM Reporting Lab: [facility]TRN [facility] [address] [facility] [address] Performing Lab: [facility]ITALRCOOS[facility]ENTERTRN [facility]USE[facility] [address] [facility] [address] SED RATE, AUTOMATED 9 0-15 Feb 07, 2022 [place] [facility] URINALYSIS CLEAN Specimen Type: URINE 01:43 PM [facility] CATCH No comment enter ed. Ordering Provid er: DIMITRI SCRUGGS Report Released Date/Time: Feb 07, 2022 07:50 AM Reporting Lab: [facility]ITALRBULL[facility]OSPITALN [facility] [address] [facility] [address] Performing Lab: [facility]ITALRCOOS[facility]ENTERTRN [facility] [address] [facility] [address] UA COLOR Yellow Yellow UA APPEARANCE Clear [...] AND DIFF Specimen Type: BLOOD 01:43 PM [facility] (AUTO) No comment enter ed. Ordering Provid er: DIMITRI SCRUGGS Report Released Date/Time: Feb 07, 2022 07:49 AM Reporting Lab: [facility]ITALRCOOS[facility]ENTERTRN [facility] [address] [facility] [address] Performing Lab: [facility] [address] [facility] [address] WBC 6.22 4.50-11.00 RBC 5.24 4.23-5.66 HGB 15.7 12.8-17 HCT 44.8 39.2-50.4 MCV 85.5 82-99 MCHC 35.0 30.8-35.1 PLT 390 H 140-360 RDW-CV 11.4 L 12.0-16.0 [place], Abs 0.46 0.30-1.10 MCH 30.0 26.2-32.6 Neut % 60.2 Lymph % 30.1 [place] % 7.4 Eos % 1.1 Baso % 0.6 Neut, Abs 3.74 2.20-7.60 Lymph, Abs 1.87 1.00-3.20 Eos, Abs 0.07 0.03-0.44 Baso, Abs 0.04 0.01-0.13 Immature Gran % 0.6 Immature Gran, Abs 0.04 0.00-0.06 Jan 30, 2022 11:25 [place] [facility] THYROID TOTAL T4 Specimen Ty pe: SERUM AM [place] [facility] No comment enter ed. Ordering Provid er: YINA HAGAN Report Released Date/Time: Jan 30, 2022 10:32 AM Reporting Lab: [facility] [place] [facility] [address] [facility] [address] Performing Lab: [place] [facility] [place] [facility] [address] [facility] [address] THYROID TOTAL T4 8.86 4.5-12.0 Jan 30, 2022 [place] [facility] TESTOSTERONE, TOTAL Specimen Ty pe: SERUM 11:25 AM [facility] No comment enter ed. Ordering Provid er: YINA HAGAN Report Released Date/Time: Jan 30, 2022 10:32 AM Reporting Lab: [place] [facility] [place] [facility] [address] [facility] [address] Performing Lab: [place] [facility] [place] [facility] [address] [facility] [address] TESTOSTERONE, TOTAL 525.91 220.00-892 .00 Jan 30, 2022 11:25 [place] [facility] LIVER FUNCTION Specimen Typ e: SERUM AM [place] [facility] No comment enter ed. Ordering Provid er: YINA HAGAN Report Released Date/Time: Jan 30, 2022 10:32 AM Reporting Lab: [facility] [address] [facility] [address] Performing Lab: [facility] [address] [facility] [address] PROTEIN,TOTAL 7.2 6.0-8.3 ALBUMIN 4.0 3.5-5.0 ALKALINE PHOSPHATASE 57 40-150 AST 37 H 5-34 ALT 36 <6-55 BILIRUBIN, TOTAL 0.9 0.2-1.2 Jan 30, 2022 11:25 [facility] CBC AND DIFF Specimen Typ e: BLOOD AM [facility] (AUTO) No comment enter ed. Ordering Provid er: YINA HAGAN Report Released Date/Time: Jan 30, 2022 10:32 AM Reporting Lab: [facility] [address] [facility] [address] Performing Lab: [facility] [address] [facility] [address] WBC 2.65 L 4.50-11.00 RBC 5.29 4.23-5.66 HGB 15.7 12.8-17 HCT 46.2 39.2-50.4 MCV 87.3 82-99 MCHC 34.0 30.8-35.1 PLT 152 140-360 RDW-CV 11.5 L 12.0-16.0 MCH 29.7 26.2-32.6 Jan 30, 2022 [facility] HEMOGLOBIN A1C Specimen Type: BLOOD 11:25 AM [facility] PANEL Comment: Values obtained from A1C [...] 10:32 AM Reporting Lab: [facility] [address] [facility] [address] Performing Lab: [facility] [place] [facility] [address] [facility] [address] HEMOGLOBIN A1C 4.6 4.0-5.6 Jan 30, 2022 [facility] BASIC METABOLIC PANEL Specimen Type: SERUM 11:25 AM [place] [facility] (fasting) No comment enter ed. Ordering Provid er: YINA HAGAN Report Released Date/Time: Jan 30, 2022 10:32 AM Reporting Lab: [facility] [place] [facility] [address] [facility] [address] Performing Lab: [facility] [place] [facility] [address] [facility] [address] UREA NITROGEN 13 7-25 GLUCOSE 102 H [...] Lab: [facility] [place] [facility] [address] [facility] [address] Performing Lab: [facility] [place] [facility] [address] [facility] [address] TSH 0.82 0.35-5.00 Jan 30, 2022 11:25 [facility] LIPID PANEL FASTING Specimen Type: SERUM AM [place] [facility] No comment enter ed. Ordering Provid er: YINA HAGAN Report Released Date/Time: Jan 30, 2022 10:32 AM Reporting Lab: [facility] [place] [facility] [address] [facility] [address] Performing Lab: [facility] [place] [facility] [address] [facility] [address] CHOLESTEROL 167 <7-199 TRIGLYCERIDE 112 0-150 LDL calculated 108 0-129 CHOL/HDL 4.5 HDL CHOLESTEROL 37 L 40-60 Jan 30, 2022 11:25 [facility] [place] VITAMIN B12 S pecimen Type: SERUM AM [facility] No comment enter ed. Ordering Provid er: YINA HAGAN Report Released Date/Time: Jan 30, 2022 10:32 AM Reporting Lab: [facility] [place] [facility] [address] [facility] [address] Performing Lab: [facility] [place] [facility] [address] [facility] [address] VITAMIN B12 354 200-900 Jan 30, 2022 11:25 [facility] VITAMIN D (25-[place]) Specimen T ype: SERUM AM [place] [facility] No comment enter ed. Ordering Provid er: YINA HAGAN Report Released Date/Time: Jan 30, 2022 10:32 AM Reporting Lab: [facility] [place] [facility] [address] [facility] [address] Performing Lab: [facility] [facility] [address] [facility] [address] VITAMIN D (25-[place]) 38 20-50 Jan 30, 2022 [facility] MICROSCOPIC AUTOMATED, Specimen Type: URINE 11:25 AM [facility] URINE No comment enter ed. Ordering Provid er: YINA HAGAN Report Released Date/Time: Jan 30, 2022 10:32 AM Reporting Lab: [facility] [place] [facility] [address] [facility] [address] Performing Lab: [facility] [place] [facility] [address] [facility] [address] UA WBC 0-5 0-5 UA MUCUS FEW Trace UA RBC 3-5 0-3 Jan 30, 2022 [facility] DIFFERENTIAL, MANUAL Specimen T ype: BLOOD 11:25 AM [place] [facility] Comment: Giant platelets present. SENT FOR PATHOLOGY REVIEW Ordering Provid er: YINA HAGAN Report Released Date/Time: Jan 30, 2022 10:32 AM Reporting Lab: [facility] [place] [facility] [address] [facility] [address] Performing Lab: [facility] [place] [facility] [address] [facility] [address] SEGS 47 L 48-78 BANDS 5 0-10 LYMPHS 16 10-55 MONOS 23 H 2-12 VARIANT LYMPHOCYTES 5 0-6 OTHER/CELL 4 Jan 30, 2022 11:25 [facility] W[facility]N [place] URINALYSIS S pecimen Type: URINE AM HCS No comment enter ed. Ordering Provid er: BENTLEYYINA Report Released Date/Time: Jan 30, 2022 10:32 AM Reporting Lab: [facility] [address] [facility] [address] Performing Lab: [facility] [address] [facility] [address] UA COLOR Yellow Yellow UA APPEARANCE Clear Clear UA GLUCOSE Negative Negative UA KETONES Negative Neg UA BLOOD Moderate Neg UA PROTEIN 30 Neg UA NITRITE Negative Neg UA BILIRUBIN Negative Neg UA SPECIFIC GRAVITY 1.027 H 1.016-1.02 2 UA pH 5.0 5.0-9.0 UA UROBILINOGEN <2.0 <2.0 UA LEUKOCYTE ESTERASE Negative Neg Jan [facility] LYME Specimen Type: SERUM 14, WSTRN SEROLOGY Comment: The [facility] SEROLOGY PANEL was performed using the FDA-approved [employer] YINA Borrelia burdorferi modified two-tier test system. This modified methodology uses a second EIA in place of a western imm 2021 [place] PANEL unoblot assay, w hich the FDA has determined is substantially equivalent to or better than standard two-tier testing using western blot. Supplemental testing with a second EIA meets CDC guidelines for 11:25 [facility] Lyme disease aren ting. Performance characteristics of [...] and local health departments, if applicable. The [place] State Form U RL is: http://www.[place].gov/dp/dru/dp/infectious_diseases/pdf_forms_/md58_dsok.pdf Ordering Provid er: BENTLEYYINA Report Released Date/Time: Feb 03, 2022 12:51 PM Reporting Lab: [place] [facility] [place] [facility] [address] [facility] [address] Performing Lab: [place] [facility] [place] [facility] [address] [facility] [address] TIER 1 LYME SCREENING EIA Negative Nega tive LYME AB FINAL INTERPRETATION Negative N egative Jan 30, 2022 11:25 [place] [facility] SMEAR CONSULT ([facility]) Specimen Type: BLOOD AM [place] [facility] Comment: SEE [id number] Ordering Provid er: YINA HAGAN Report Released Date/Time: Jan 30, 2022 12:51 PM Reporting Lab: [place] [facility] [place] [facility] [address] [facility] [address] Performing Lab: [place] [facility] [place] [facility] [address] [facility] [address] SMEAR CONSULT ([facility]) comment Social History: Smoking Status (Most [...] 23, 2021 02:30 PM VA-TOBACCO NEVER USED [place] [facility] N[facility]L [place] [facility] Encounter Notes: All associated encounter notes This section contains the clinical notes associated to the Encounter. 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
--- OUTSIDE RECORDS SUMMARY | 2022-04-18 10:24 | XMS_ITS | Encounter Summary ---
:1990 Author Organization Department of [facility] rs Address [address] [place] [address] Support Name Relationship Address Phone TETE TRAN Unavailable [address] [facility] [place] [address] THOMAS MONTOYA Unavailable [address] [place] [address] Insurance Providers: All historical and current Section [...] [facility] Aug 03, [id number] [phone] ALIAROSINA Mane PATIENT BEE GIMENEZ [id number] STEPHANIE JOHNSON [facility] ORGANIZ E DEPT Selected Encounter This section includes the information on record at [place] for the Encounter. Date/Time Encounter Type Encounter Description Reason Provider Source Feb 27, 2022 02:00 Outpatient [facility] PM [...] Date/Time Appointment Type Appointment Facili ty Name Mar 17, 2022 03:00 PM [facility] Mar 28, 2022 09:00 AM [facility] [place] [facility] [place] [facility] Apr 17, 2022 01:00 PM AM[facility] - NONE [facility] [place] [facility] Apr 25, 2022 09:00 AM [facility] [place] [facility] [facility] [place] [facility] May 09, 2022 09:00 AM AMBUL[facility] [place] [facility] [place] [facility] May 23, 2022 09:00 AM [facility]BUL[place]AT[place] [facility] [place] [facility] Jul 17, 2022 08:30 AM AMBULATORY - NONE [facility] [place] [facility] Aug 28, 2022 09:30 AM [place] MEDICINE [place] [facility] [place] [facility] Lab Results: +/- 30 days of the encounter This section includes the Chemistry and Hematology Lab Results on record with [place] for the patient. Radiology Reports and Pathology Reports are provided separately, in subsequent sections.Lab Results This section contains the Chemistry/Hematology Results that were resulted 30 days before or 30 daysafter the date of the Encounter. Date/Time Source Result Type Result - Unit Interpretation Reference Range Comment Feb 07, 2022 [facility] BRUCELLA ANTIBODY, Specimen Typ e: SERUM 01:43 PM [facility] AGGLUTINATION Comment: REFERE NCE RANGE: [...] performance characteri stics have been determined by [facility]. It has not been cleared or approved by FDA. This assay has been validated pursuant to the CLIA regulations and is used for clinical purposes. Test perfor med by [facility] [address] [place] [address] Master Printer: Alejandrina Quick MD,PHD,VIR[place]IE Test performed at [facility], [place], [place]. Ordering Provid er: DIMITRI SCRUGGS Report Released Date/Time: Feb 07, 2022 01:27 PM Reporting Lab: [facility] [address] [facility] [address] Performing Lab: [facility] [address] [place], [address] [facility] [address] BRUCELLA ANTIBODY, AGGLUTINATION <1:80 Feb 07, 2022 [facility] BABESIA MICROTI Specimen Type: SERUM 01:43 PM [facility] ANTIBODIES (IgG, Comment: REFER ENCE [...] analytical performance characteristics have been determined by [employer] [facility] [facility] [place]. It has not been cleared or approved by the U.S. Food and Drug A dministration. T his assay has been validated pursuant to the CLIA regulations and is used for clinical purposes. Test Performed by [facility], [facility], [address] [facility] Abhijit [place], [place] Ronald Abdul M.D., Ph.D., Director of Laboratories , CLIA [id number] TEST PERFORMED AT: , Ordering Provid er: DIMITRI SCRUGGS Report Released Date/Time: Feb 07, 2022 01:29 PM Reporting Lab: [facility] [address] [facility] [address] Performing Lab: [facility] [address] [place], [address] [facility] [address] Babesia microti IgG <1:64 SEE BELOW Babesia microti IgM <1:20 SEE BELOW BABESIA MICROTI AB INTER SEE NOTE Feb 07, 2022 [place] [facility] ANAPLASMA AND Specimen Type: SERUM 01:43 PM [facility] EHRLICHIA AB PANEL Comment: REF ERENCE [...] performance c haracteristics have been determined by [place]. It has not been cleared or [...] analytical performance characteristics have been determined by [place]. It has not been cleared or approved by the U.S. Food and Drug Administration. This assay has been validated pursuant to the CLIA regulations and is used for clinical purposes. Test Performed by [facility] [employer] [place], [address] [place], [place] Ronald Abdul M.D., Ph.D., Director of Laboratories , CLIA [id number] TEST PERFORMED AT: , Ordering Provid er: DIMITRI SCRUGGS Report Released Date/Time: Feb 07, 2022 01:33 PM Reporting Lab: [facility] [address] [facility] [address] Performing Lab: [facility] [address] [place], [address] [place] [address] E. chaffeensis Ab IgG <1:64 SEE BELO W E. chaffeensis Ab IgM <1:20 SEE BELO W A.phagocytophilum Ab IgG <1:64 SEE B ELOW A.phagocytophilum Ab IgM <1:20 SEE B ELOW EHRLICHIA CHAFFEENSIS AB INTER SEE NOTE A. phagocytophilum inter SEE NOTE Feb 07, 2022 [facility] BABESIA MICROTI, Specimen Type: BLOOD 01:43 PM [facility] DNA PCR(WHV) Comment: The an alytical performance characteristics of this test have been determined by [facility]. It has not been cleared by the FDA. Ordering Provid er: DIMITRI SCRUGGS Report Released Date/Time: Feb 07, 2022 01:29 PM Reporting Lab: [facility] [address] [facility] [address] Performing Lab: [facility] [address] [facility] [address] BABESIA MICROTI, DNA PCR(WHV) Not Detected Not Detected Feb 07, 2022 [facility] RICKETTSIA ANTIBODY Specimen Ty pe: SERUM 01:43 PM [facility] PANEL (Q) Comment: Test P erformed by Betty Tracey, [facility], [address] [place] [address] Ronald Abdul M.D., Ph.D., Director of Laboratories , RAFAELAIA [id number] TEST PERFORMED AT: , Ordering Provid er: DIMITRI SCRUGGS Report Released Date/Time: Feb 07, 2022 01:33 PM Reporting Lab: [facility] [address] [facility] [address] Performing Lab: [facility] [address] [place], [address] [place] [address] RMSF IgG Not Detected Not Detected RMSF IgM Not Detected Not Detected R. typhi IgM Not Detected Not Detected Jose [facility] LYME Specimen Type: SERUM 22, [facility] SEROLOGY Comment: The re sults are supportive evidence for the presence of antibodies and exposure to Borrelia burgdorferi. The LYME SEROLOGY PANEL was performed using the FDA-approved Demetrius YINA Borrelia burdor 2021 Practice [employer] e-[place] PANEL feri modified tw o-tier test system. [...] of the panel were validated at the [facility] lar Diagnostics Laboratory. Results are [...] applicable. The [place] State Form URL is: http://www.sc.gov/dph/dru/dph/infectious_diseases/pdf_forms_/[email or web address]_knmr.pdf Ordering Provid er: DIMITRI SCRUGGS Report Released Date/Time: Feb 07, 2022 07:49 AM Reporting Lab: [facility] [place] [facility] [address] [facility] [address] Performing Lab: [place] [facility] [place] [facility] [address] [facility] [address] TIER 1 LYME SCREENING EIA Presumptive Positive [...] Lab: [facility] [place] [facility] [address] [facility] [address] Performing Lab: [facility] [place] [facility] [address] [facility] [address] FOLATE 12.99 >5.2 Feb 07, 2022 [facility] MALARIA/BABESIA EXAM Specimen T ype: BLOOD 01:43 PM [place] [facility] Comment: Due to the cyclical shed rates of these parasites, one negative specimen does not rule out the possibility of a parasitic infection. Obtain specimens at 6-hour intervals for 36 hours for a com prehensive exami nation. Test Performed by [facility] [employer], [facility], [address] [place] [address] Ronald Abdul M.D., Ph.D., Director of Laboratories , [facility] [id number] TEST PERFORMED AT: , Ordering Provid er: DIMITRI SCRUGGS Report Released Date/Time: Feb 07, 2022 01:29 PM Reporting Lab: [facility] [place] [facility] [address] [facility] [address] Performing Lab: [facility] [place] [facility] [address] [place], [address] [place] [address] MALARIA/BABESIA EXAM Negative Negative Feb 07, 2022 [facility] CORA SCREEN/TITER Specimen Type: SERUM 01:43 PM [place] [facility] No comment enter ed. Ordering Provid er: DIMITRI SCRUGGS Report Released Date/Time: Feb 07, 2022 01:29 PM Reporting Lab: [facility] [place] [facility] [address] [facility] [address] Performing Lab: [facility] [place] [facility] [address] [facility] [address] CORA SCREEN NEG NEG <1:40 Feb 07, 2022 [facility] C REACTIVE PROTEIN Specimen Typ e: SERUM 01:43 PM [facility] (CRP) Comment: Refere nce range [...] Feb 07, 2022 01:18 PM Reporting Lab: [facility] [place] [facility] [address] [facility] [address] Performing Lab: [facility] [address] [facility] [address] C REACTIVE PROTEIN (CRPH) 2.32 See eval. Feb 07, 2022 01:43 [facility] VITAMIN B12 Specimen Typ e: SERUM PM [facility] No comment enter ed. Ordering Provid er: DIMITRI SCRUGGS Report Released Date/Time: Feb 07, 2022 07:49 AM Reporting Lab: [facility] [place] [facility] [address] [facility] [address] Performing Lab: [facility] [place] [facility] [address] [facility] [address] VITAMIN B12 593 200-900 Feb 07, 2022 [facility] SED RATE, AUTOMATED Specimen Ty pe: BLOOD 01:43 PM [facility] No comment enter ed. Ordering Provid er: DIMITRI SCRUGGS Report Released Date/Time: Feb 07, 2022 01:18 PM Reporting Lab: [facility] [address] [facility] [address] Performing Lab: [facility] [address] [facility] [address] SED RATE, AUTOMATED 9 0-15 Feb 07, 2022 [facility] URINALYSIS CLEAN Specimen Type: URINE 01:43 PM [facility] CATCH No comment enter ed. Ordering Provid er: DIMITRI SCRUGGS Report Released Date/Time: Feb 07, 2022 07:50 AM Reporting Lab: [facility] [address] [facility] [address] Performing Lab: [facility] [address] [facility] [address] UA COLOR Yellow Yellow UA APPEARANCE Clear Clear UA GLUCOSE Negative Negative UA KETONES Negative Neg UA BLOOD Negative Neg UA PROTEIN Negative Neg UA NITRITE Negative Neg UA BILIRUBIN Negative Neg UA SPECIFIC GRAVITY 1.017 1.016-1.02 2 UA pH 6.0 5.0-9.0 UA UROBILINOGEN <2.0 <2.0 UA LEUKOCYTE ESTERASE Negative Neg Feb 07, 2022 [facility] CBC AND DIFF Specimen Type: BLOOD 01:43 PM [facility] (AUTO) No comment enter ed. Ordering Provid er: DIMITRI SCRUGGS Report Released Date/Time: Feb 07, 2022 07:49 AM Reporting Lab: [facility] [address] [facility] [address] Performing Lab: [facility] [address] [facility] [address] WBC 6.22 4.50-11.00 RBC 5.24 4.23-5.66 HGB 15.7 12.8-17 HCT 44.8 39.2-50.4 MCV 85.5 82-99 MCHC 35.0 30.8-35.1 PLT 390 H 140-360 RDW-CV 11.4 L 12.0-16.0 Hayes, Abs 0.46 0.30-1.10 MCH 30.0 26.2-32.6 Neut % 60.2 Lymph % 30.1 Hayes % 7.4 Eos % 1.1 Baso % 0.6 Neut, Abs 3.74 2.20-7.60 Lymph, Abs 1.87 1.00-3.20 Eos, Abs 0.07 0.03-0.44 Baso, Abs 0.04 0.01-0.13 Immature Gran % 0.6 Immature Gran, Abs 0.04 0.00-0.06 Jan 30, 2022 11:25 [facility] THYROID TOTAL T4 Specimen Ty pe: SERUM AM [place] [facility] No comment enter ed. Ordering Provid er: YINA HAGAN Report Released Date/Time: Jan 30, 2022 10:32 AM Reporting Lab: [facility] [place] [facility] [address] [facility] [address] Performing Lab: [place] [facility] [place] [facility] [address] [facility] [address] THYROID TOTAL T4 8.86 4.5-12.0 Jan 30, 2022 [place] [facility] TESTOSTERONE, TOTAL Specimen Ty pe: SERUM 11:25 AM [facility] No comment enter ed. Ordering Provid er: YINA HAGAN Report Released Date/Time: Jan 30, 2022 10:32 AM Reporting Lab: [facility] [place] [facility] [address] [facility] [address] Performing Lab: [facility] [place] [facility] [address] [facility] [address] TESTOSTERONE, TOTAL 525.91 220.00-892 .00 Jan 30, 2022 11:25 [facility] LIVER FUNCTION Specimen Typ e: SERUM AM [place] [facility] No comment enter ed. Ordering Provid er: YINA HAGAN Report Released Date/Time: Jan 30, 2022 10:32 AM Reporting Lab: [facility] [place] [facility] [address] [facility] [address] Performing Lab: [place] [facility] [place] [facility] [address] [facility] [address] PROTEIN,TOTAL 7.2 6.0-8.3 ALBUMIN 4.0 3.5-5.0 ALKALINE PHOSPHATASE 57 40-150 AST 37 H 5-34 ALT 36 <6-55 BILIRUBIN, TOTAL 0.9 0.2-1.2 Jan 30, 2022 11:25 [facility] CBC AND DIFF Specimen Typ e: BLOOD AM [place] [facility] (AUTO) No comment enter ed. Ordering Provid er: YINA HAGAN Report Released Date/Time: Jan 30, 2022 10:32 AM Reporting Lab: [facility] [place] [facility] [address] [facility] [address] Performing Lab: [facility] [place] [facility] [address] [facility] [address] WBC 2.65 L 4.50-11.00 RBC 5.29 4.23-5.66 HGB 15.7 12.8-17 HCT 46.2 39.2-50.4 MCV 87.3 82-99 MCHC 34.0 30.8-35.1 PLT 152 140-360 RDW-CV 11.5 L 12.0-16.0 MCH 29.7 26.2-32.6 Jan 30, 2022 11:25 [facility] LIPID PANEL FASTING Specimen Type: SERUM AM [place] [facility] No comment enter ed. Ordering Provid er: YINA HAGAN Report Released Date/Time: Jan 30, 2022 10:32 AM Reporting Lab: [facility] [place] [facility] [address] [facility] [address] Performing Lab: [facility] [place] [facility] [address] [facility] [address] CHOLESTEROL 167 <7-199 TRIGLYCERIDE 112 0-150 LDL calculated 108 0-129 CHOL/HDL 4.5 HDL CHOLESTEROL 37 L 40-60 Jan 30, 2022 [facility] BASIC METABOLIC PANEL Specimen Type: SERUM 11:25 AM [place] [facility] (fasting) No comment enter ed. Ordering Provid er: YINA HAGAN Report Released Date/Time: Jan 30, 2022 10:32 AM Reporting Lab: [facility] [place] [facility] [address] [facility] [address] Performing Lab: [place] [facility] [place] [facility] [address] [facility] [address] UREA NITROGEN 13 7-25 GLUCOSE 102 H [...] AM Reporting Lab: [facility] [place] [facility] [address] [facility] [address] Performing Lab: [facility] [place] [facility] [address] [facility] [address] TSH 0.82 0.35-5.00 Jan 30, 2022 [facility] HEMOGLOBIN A1C Specimen Type: BLOOD 11:25 AM [facility] PANEL Comment: Values obtained from A1C measurements can vary. For typical A1C assays, a reported value of 7.0 could actually be between 6.72 and 7.28 if measured by a reference method. A reported value of 9 .0 could actuall y be between 8.73 and 9.27. Ref: http://www.ngsp.org/CAPdata.asp Ordering Provid er: YINA HAGAN Report Released Date/Time: Jan 30, 2022 10:32 AM Reporting Lab: [facility] [place] [facility] [address] [facility] [address] Performing Lab: [place] [facility] [place] [facility] [address] [facility] [address] HEMOGLOBIN A1C 4.6 4.0-5.6 Jan 30, 2022 11:25 [facility] VITAMIN D (25-[place]) Specimen T ype: SERUM AM [place] [facility] No comment enter ed. Ordering Provid er: YINA HAGAN Report Released Date/Time: Jan 30, 2022 10:32 AM Reporting Lab: [place] [facility] [place] [facility] [address] [facility] [address] Performing Lab: [place] [facility] [place] [facility] [address] [facility] [address] VITAMIN D (25-[place]) 38 20-50 Jan 30, 2022 11:25 [facility] [place] VITAMIN B12 S pecimen Type: SERUM AM [facility] No comment enter ed. Ordering Provid er: YINA HAGAN Report Released Date/Time: Jan 30, 2022 10:32 AM Reporting Lab: [facility] [place] [facility] [address] [facility] [address] Performing Lab: [facility] [place] [facility] [address] [facility] [address] VITAMIN B12 354 200-900 Jan 30, 2022 [facility] MICROSCOPIC AUTOMATED, Specimen Type: URINE 11:25 AM [place] [facility] URINE No comment enter ed. Ordering Provid er: YINA HAGAN Report Released Date/Time: Jan 30, 2022 10:32 AM Reporting Lab: [facility] [place] [facility] [address] [facility] [address] Performing Lab: [facility] [place] [facility] [address] [facility] [address] UA WBC 0-5 0-5 UA MUCUS FEW Trace UA RBC 3-5 0-3 Jan 30, 2022 [facility] DIFFERENTIAL, MANUAL Specimen T ype: BLOOD 11:25 AM [place] [facility] Comment: Giant platelets present. SENT FOR PATHOLOGY REVIEW Ordering Provid er: YINA HAGAN Report Released Date/Time: Jan 30, 2022 10:32 AM Reporting Lab: [facility] [place] [facility] [address] [facility] [address] Performing Lab: [facility] [place] [facility] [address] [facility] [address] SEGS 47 L 48-78 BANDS 5 0-10 [...] HCS [address] [facility] [address] Performing Lab: [facility] [place] [facility] [address] [facility] [place] [address] UA COLOR Yellow Yellow UA APPEARANCE Clear Clear UA GLUCOSE Negative Negative UA KETONES Negative Neg UA BLOOD Moderate Neg UA PROTEIN 30 Neg UA NITRITE Negative Neg UA BILIRUBIN Negative Neg UA SPECIFIC GRAVITY 1.027 H 1.016-1.02 2 UA pH 5.0 5.0-9.0 UA UROBILINOGEN <2.0 <2.0 UA LEUKOCYTE ESTERASE Negative Neg [place] [facility] LYME Specimen Type: SERUM 14, [facility] SEROLOGY Comment: The LY ME SEROLOGY PANEL was performed using the FDA-approved [employer] YINA Borrelia burdorferi modified two-tier test system. This modified methodology uses a second EIA in place of a western imm 2021 [place] PANEL unoblot assay, w hich the FDA has determined is substantially equivalent to or better than standard two-tier testing using western blot. Supplemental testing with a second EIA meets CDC guidelines for 11:25 [facility] Lyme disease aren ting. Performance characteristics of the panel were validated at the [facility] Molecular Diagnostics Laboratory. Results are [...] The [place] State Form U RL is: http://www.[place].gov/dph/dru/dph/infectious_diseases/pdf_forms_/tx95_ffqp.pdf Ordering Provid er: YINA HAGAN Report Released Date/Time: Feb 03, 2022 12:51 PM Reporting Lab: [facility] [place] [facility] [address] [facility] [address] Performing Lab: [place] [facility] [place] [facility] [address] [facility] [address] TIER 1 LYME SCREENING EIA Negative Nega tive LYME AB FINAL INTERPRETATION Negative N egative Jan 30, 2022 11:25 [facility] SMEAR CONSULT ([facility]) Specimen Type: BLOOD AM [place] [facility] Comment: SEE HE [id number] Ordering Provid er: YINA HAGAN Report Released Date/Time: Jan 30, 2022 12:51 PM Reporting Lab: [facility] [place] [facility] [address] [facility] [address] Performing Lab: [place] [facility] [place] [facility] [address] [facility] [address] SMEAR CONSULT ([facility]) comment Social History: Smoking Status (Most [...] VA-TOBACCO NEVER USED [place] [facility] Encounter Notes: All associated encounter notes This section contains the clinical notes associated to the Encounter. Date/Time Encounter Note(s) Provider Source Feb 27, 2022 02:12 PM CLERICAL NOTE: ANIVAL DEL ANGEL [place] [facility] LOCAL TITLE: APPOINTMENT NO SHOW [place] [facility] STANDARD TITLE: CLERICAL NOTE DATE OF NOTE: FEB 27, 2022@14:12 ENTRY DATE: FEB 27, 2022@14:12:25 AUTHOR: ANIVAL DEL ANGEL EXP COSIGNER: URGENCY: STATUS: COMPLETED Patient Name: GEORGE MONTOYA Patient SSN: [id number] Date and time of Appointment No show : 02/27/22 14:00 PATIENT PHONE - PHONE NUMBER [CELLULAR] - Patient's medical record was reviewed. Follow-up actions were determined and initiated: Please check/complete as applies: [X]Telephoned Directly [ ]Re-scheduled for next available appt [ ]Sent a N0-show letter ( must call for appointment) [ ]Other (Emergent/Overbook, etc.): Additional Comments: Phoned who was not at appointment. He ap ologized stating he had gotten the appointment confused. 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 He said he would see writer technical publications at next scheduled ap pointment. Future Clinic Visits 02/28/2022 10:00 CWM/NO/TH/VVC/CWT/JG 03/17/2022 15:00 CWM/NO/TH/VVC/MHC/NARCISO 03/19/2022 14:00 NHM/MHC/MER 04/17/2022 13:00 CWM/NO/DENTAL/DMD2 PM 08/28/2022 09:30 CWM/NO/OPTOMETRY/MERHAR /es/ ANIVAL DEL ANGEL [facility] CLINICAL DESIGN SPECIALIST Signed: 02/27/2022 14:13
--- OUTSIDE RECORDS SUMMARY | 2022-04-18 10:24 | XMS_ITS | Encounter Summary ---
:1990 Author Organization Department of [facility] rs Address [address] [place] [address] Support Name Relationship Address Phone TETE TRAN Unavailable [address] [facility] [place] [address] THOMAS MONTOYA Unavailable [address] [facility] [place] [address] Insurance Providers: All historical and current Section [...] Name to Policy Number Ojeda [facility] Aug 03, [id number] [phone] ROSINA CALLAHAN PATIENT BEE GIMENEZ 2019 [id number] STEPHANIE JOHNSON [facility] E DEPT Selected Encounter This section includes the information on record at [place] for the Encounter. Date/Time Encounter Type Encounter Reason Provider Source Description Mar 17, 2022 OFFICE O/P EST MENTAL HEALTH ICD-10-CM F43.10 HOWARD STUART CQU 03:00 PM SF 10-19 MIN CLINIC - IND Post-traumatic ELYN stress disorder, unspecified with Provider Comments: Posttraumatic stress disorder ([facility] [id number]) IHE Encounter Template Text not used by [facility] Assessments - Encounter Diagnoses This section includes the primary and secondary diagnoses documented for the Encounter. Date/Time Primary/Secondary Diagnosis Name Provider Source Diagnosis Mar 17, 2022 PRIMARY Post-traumatic NARCISOIWNSTON [place] CNTR WS TRN 03:33 PM stress disorder, [place] [facility] unspecified Mar 17, 2022 SECONDARY Major depressive WINSTON STUART [place] CNTRL WSTRN 03:33 PM disorder, [place] [facility] recurrent, moderate Plan of Treatment: Future Appointments [...] Appointment Type Appointment Facili ty Name Mar 28, 2022 09:00 AM AMBULATORY - PSYCHIATRY [place] [facility] [facility] Apr 17, 2022 01:00 PM AMBULATORY - NONE [place] [facility] Apr 25, 2022 09:00 AM AMBULATORY - PSYCHIATRY [place] [facility] May 09, 2022 09:00 AM AMBULATORY - PSYCHIATRY [place] [facility] May 23, 2022 09:00 AM AMBULATORY - PSYCHIATRY [place] [facility] Jul 17, 2022 08:30 AM AMBULATORY - NONE [place] [facility] Aug 28, 2022 09:30 AM AMBULATORY - MEDICINE [place] [facility] Social History: Smoking Status (Most current) [...] NEVER USED IA C NTRL [place] [facility] Encounter Notes: All associated encounter notes This section contains the clinical notes associated to the Encounter. Date/Time Encounter Note(s) Provider Source Mar 17, 2022 03:07 TELEHEALTH NOTE: DENISE STUART [place] CNTRL W STRN PM LOCAL TITLE: [place] VIDEO CONNECT PSYCHIATRIST NOTE [facility] STANDARD TITLE: TELEHEALTH NOTE DATE OF NOTE: MAR 17, 2022@15:07 ENTRY DATE: MAR 17, 2022@15:07:44 AUTHOR: DENISE STUART EXP COSIGNER: URGENCY: STATUS: COMPLETED [place] Video Connect ([facility]) Standard Documentation [facility] Clinician Resources Only: E911 (Emergency Call Relay Center): [phone] National Veterans Crisis Line - 988 then press # 1. SUSIE Suicide Coordinator [phone], Ext. [phone]; Back-up Ext. [phone] [place] Police, Jeremiah RICHARDS [phone] Introduction: Visit is being conducted by [place] [employer] Connect. identified with 2 identifiers: [X] Full Name [X] Date of [ ] VA ID Card Emergency Plan: Cornelius confirmed and/or pro vided the following information in case of emergency or technology failure. PATIENT PHONE - PHONE NUMBER [CELLULAR] - Is patient phone number correct, if not, enter b elow: 's phone number: GEORGE MONTOYA [address], [place], [address] Cornelius's present location and address for appoi ntment: Home Cornelius's emergency contact name and phone numbe r: None given Cornelius reported that location is private and sa fe: Yes Informed Consent: Cornelius informed of the risks and benefits of Te lehealth video care. Cornelius has the right to refuse video services. If refuses video visit, a maba-uz-kytp visit will be scheduled. Cornelius verbalized consent for this video visit: Yes Cornelius provided consent for any other persons p resent for visit: N/A If yes, who and relationship to patient: Secure visit: Visit was locked for security and privacy:Yes GEORGE MONTOYA, a 32 year old WHITE MALE was seen by [facility] for scheduled mental health follow-up. MENTAL HEALTH NOTE: Cornelius was seen for 10 min remotely for routine follow up. Two forms of identification was used. 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 He continues doing voc rehab to find what he might be able to do for a job. 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 He says he was the sickest he has ever been in his whole life. He has been feeling his mood is pretty good. He notes some depressive symptoms her e and there (about seven times in a month). He says the episodes don't last that long. He feels able to manage the feelings. He denies any suicidal ideation. [facility] Ramya. He says that the trazodone has been leaving him with a hang over feeling he doesnt like. He would like to stop it and maybe retry melatonin which he recalls working for him in the past. SUBSTANCE ABUSE: Caffeine: denies Tobacco: denies Cocaine: [...] FOR SLEEP Inactive Outpatient Medications Status 1) METHOCARBAMOL 500MG TAB TAKE ONE TABLET BY MO UTH THREE TIMES DAILY NEEDED 2) PREDNISONE 20MG TAB TAKE TWO TABLETS BY MOUTH ONCE DAILY 10 Total Medications MEDICATION ADHERENCE: takes medications most day s MEDICATION SIDE EFFECTS: none OBJECTIVE: Weight: 176 lb [79.83 kg] (02/07/2022 12:49) BMI : 26.8 MENTAL STATUS EXAM: Orientation and Consciousness: Alert and fully o riented. Appearance and Behavior: White male with short b rown hair and perea dressed casually. Eye Contact: Good. Speech: Normal rate and volume. Mood/Affect: ok. Affect: euthymic. Thought Production/Content: Logical, sequential & relevant to discussion. Perceptual Disturbances: None. Attention, concentration and memory based on answers to session questions: Good. Insight/Judgment: Both good. SI/HI: Neither elicited. Ability to Provide informed consent: Yes. ASSESSMENT:32 year old WHITE MALE, elizabet lee today for mental health follow up. TREATMENT PLAN/ DISCUSSION/ RATIONALE: 1.::: Medication management: Reviewed medication s with George today. He continues on his regimen of prazosin, lexapro, wellbutrin, gabapentin and ativan as needed. He doesn't like the hang over effect from the trazodone and would like to stop the trazodone. He also would like to retry melatonin which he says he has taken before and helped him sleep. No lauren nges to his medications other than discontinuing the trazodone and starting me latonin. Will start the melatonin at 2 mg qHS for 7 days then to increase to 2 mg qHS and 2 mg qHS prn for sleep. The risks, benefits, side effects and alternatives to melatonin discussed with George and his questions paty dBrnua Next Visit: in 1 month. Patient is aware of how to access [facility] open [facility] in [facility] during weekdays for immediate mental health [...] or call 911 for psychiatric emergencies, inc [facility] SI/HI. ::: SAFETY PLAN: Pt was educated about emergency services available at this facility e.g., ER) and in the community (i ncluding Crisis Line, 911, [place] National Suicide Prevention Lifeline: 7-082- 073-FOZD). Patient is instructed to contact me should [...] VA (local) an d dispensed from another [place] or [facility] facility (remote) as well as inpatien [...] provider. /ivelisse/ DENISE STUART MD PSYCHIATRIST Signed: 03/17/2022 15:34
--- OUTSIDE RECORDS SUMMARY | 2022-04-18 10:24 | XMS_ITS ---
:1990 Author Organization Department of [facility] rs Address [address] [place] [address] Support Name Relationship Address Phone TETE TRAN Unavailable 36 [facility] [phone] [place] [address] THOMAS MONTOYA Unavailable 6 [facility] [place] [place] [address] Insurance Providers: All historical and current Section [...] Number Ojeda [facility] Aug 03, [id number] [phone] ALIAROSINA Mane PATIENT BEE GIMENEZ [id number] STEPHANIE JOHNSON [facility] ORGANIZ E DEPT Selected Encounter This section includes the information on record at [place] for the Encounter. Date/Time Encounter Type Encounter Reason Provider Source Description Mar 04, 2022 COMMUNITY/WORK TELEPHONE/MH VOC ICD-10-CM Z56.0 ROCAEL GREGORIO 03:15 PM [facility] Unemployment, unspecified with Provider Comments: Unemployment, unspecified IHE Encounter Template Text not used by [place] Assessments - Encounter Diagnoses This section includes the primary and secondary diagnoses documented for the Encounter. Date/Time Primary/Secondary Diagnosis Name Provider Source Diagnosis Mar 04, 2022 PRIMARY JG Dietz LINDA [facility] WSTR N 03:15 PM unspecified [facility] Plan of Treatment: Future Appointments (+ [...] 17, 2022 03:00 PM AMBULATORY - PSYCHIATRY [place] [facility] Mar 28, 2022 09:00 AM AMBULATORY - PSYCHIATRY [place] [facility] Apr 17, 2022 01:00 PM AMBULATORY - NONE [place] [facility] Apr 25, 2022 09:00 AM AMBULATORY - PSYCHIATRY [place] [facility] May 09, 2022 09:00 AM AMBULATORY - PSYCHIATRY [place]L [place] [facility] May 23, 2022 09:00 AM AMBULATORY - PSYCHIATRY [place] [facility]L [place] [facility] Jul 17, 2022 08:30 AM AMBULATORY - NONE [place] [facility] Aug 28, 2022 09:30 AM AMBULATORY - MEDICINE [place]L [place] [facility] Lab Results: +/- 30 days [...] Interpretation Reference Range Comment [facility]TIB[facility], Specimen Typ e: SERUM 01:43 PM [facility] AGGLUTINATION Comment: REFERE NCE RANGE: <1:80 The [...] performance characteri stics have been determined by [facility]. It has not been cleared or approved by FDA. This assay has been validated pursuant to the CLIA regulations and is used for clinical purposes. Test perfor med by [facility] [address] [place] [address] Retail Client Manager: Alejandrina Quick MD,PHD,[place] Test performed at [place], [place]. Ordering Provid er: DIMITRI SCRUGGS Report Released Date/Time: Feb 07, 2022 01:27 PM Reporting Lab: [facility] [address] [facility] [address] Performing Lab: [facility] [address] [facility] [address] [place], [address] [facility] [address] BRUCELLA ANTIBODY, AGGLUTINATION <1:80 Feb 07, 2022 [facility] BABESIA MICROTI Specimen Type: SERUM 01:43 PM [facility] ANTIBODIES (IgG, Comment: REFER ENCE RANGE: <1:64 [...] analytical performance characteristics have been determined by [place]. It has not been cleared or approved by the U.S. Food and Drug A dministration. T his assay has been validated pursuant to the CLIA regulations and is used for clinical purposes. Test Performed by [facility], [employer] [place], [address] [address] [place], [place] Ronald Abdul M.D., Ph.D., Director of Laboratories , CLIA [id number] TEST PERFORMED AT: , Ordering Provid er: SCRUGGS,DIMITRI J Report Released Date/Time: Feb 07, 2022 01:29 PM Reporting Lab: [facility] [address] [facility] [place] [address] Performing Lab: [facility] [address] [place], [address] [facility] [address] Babesia microti IgG <1:64 SEE BELOW Babesia microti IgM <1:20 SEE BELOW BABESIA MICROTI AB INTER SEE NOTE Feb 07, 2022 [facility] ANAPLASMA AND Specimen Type: SERUM 01:43 PM [facility] EHRLICHIA AB PANEL Comment: REF ERENCE RANGE: [...] performance c haracteristics have been determined by [facility] [place]. It has not been cleared or [...] analytical performance characteristics have been determined by [facility] [place]. It has not been cleared or approved by the U.S. Food and Drug Administration. This assay has been validated pursuant to the CLIA regulations and is used for clinical purposes. Test Performed by [facility], [facility], [address] [place], [place] Ronald Abdul M.D., Ph.D., Director of Laboratories , CLIA [id number] TEST PERFORMED AT: , Ordering Provid er: DIMITRI SCRUGGS Report Released Date/Time: Feb 07, 2022 01:33 PM Reporting Lab: [facility] [address] [facility] [address] Performing Lab: [facility] [address] [facility] [address], [address] [place] [address] E. chaffeensis Ab IgG <1:64 SEE BELO W E. chaffeensis Ab IgM <1:20 SEE BELO W A.phagocytophilum Ab IgG <1:64 SEE B ELOW A.phagocytophilum Ab IgM <1:20 SEE B ELOW EHRLICHIA CHAFFEENSIS AB INTER SEE NOTE A. phagocytophilum inter SEE NOTE Feb 07, 2022 [facility] BABESIA MICROTI, Specimen Type: BLOOD 01:43 PM [facility] DNA PCR(WHV) Comment: The an alytical performance characteristics of this test have been determined by [facility]. It has not been cleared by the FDA. Ordering Provid er: DIMITRI SCRUGGS Report Released Date/Time: Feb 07, 2022 01:29 PM Reporting Lab: [facility] [address] [facility] [address] Performing Lab: [facility] [address] [facility] [address] BABESIA MICROTI, DNA PCR(WHV) Not Detected Not Detected Feb 07, 2022 [facility] RICKETTSIA ANTIBODY Specimen Ty pe: SERUM 01:43 PM [facility] PANEL (Q) Comment: Test P erformed by [facility], [facility], [address] [place], [place] Ronald Abdul M.D., Ph.D., Director of Laboratories , CLIA [id number] TEST PERFORMED AT: , Ordering Provid er: DIMITRI SCRUGGS Report Released Date/Time: Feb 07, 2022 01:33 PM Reporting Lab: [facility] WSTRN [place] [facility] [address] [facility] [place] [place] [address] Performing Lab: [facility] WSTRN [place] [facility] [address] [place], [address] [facility] [address] RMSF IgG Not Detected Not Detected RMSF IgM Not Detected Not Detected R. typhi IgM Not Detected Not Detected Jan [facility] LYME Specimen Type: SERUM 22, WSTRN SEROLOGY Comment: The re sults are supportive evidence for the presence of antibodies and exposure to Borrelia burgdorferi. The LYME SEROLOGY PANEL was performed using the FDA-approved Demetrius YINA Borrelia burdor 2021 [facility] PANEL feri modified tw o-tier test system. This modified methodology uses a second EIA in place of a western immunoblot assay, which the FDA has determined is substantially equivalent to or better than stand 01:43 [facility] damaris two-tier aren ting using western blot. Supplemental testing with a second EIA meets CDC guidelines for Lyme disease testing. Performance characteristics of the panel were validated at the [facility] lar Diagnostics Laboratory. Results are considered [...] and local health departments, if applicable. The [place] State Form URL is: http://www.ct.gov/dp/dru/dp/infectious_diseases/pdf_forms_/te64_kmfp.pdf Ordering Provid er: DIMITRI SCRUGGS Report Released Date/Time: Feb 07, 2022 07:49 AM Reporting Lab: [place] CNTRL [place] [facility] [address] [facility] [address] Performing Lab: [place] CNTRL [facility]N [place] [facility] [address] [facility] [address] TIER 1 LYME SCREENING EIA Presumptive Positive Negative LYME AB FINAL INTERPRETATION POSITIVE HH N egative TIER 2 LYME EIA,IgG Negative Negative TIER 2 LYME EIA,IgM POSITIVE HH Negative Feb 07, 2022 01:43 PM [place] CNTRL [place] FOLATE Specimen Type: SERUM HCS No comment enter ed. Ordering Provid er: DIMITRI SCRUGGS Report Released Date/Time: Feb 07, 2022 07:49 AM Reporting Lab: [place] [facility]L [place] [facility] [address] [facility] [address] Performing Lab: [place] CNTRL [facility] [facility] [address] [facility] [address] FOLATE 12.99 >5.2 Feb 07, 2022 [place] CNTRL WSTRN C REACTIVE PROTEIN Specimen Typ e: SERUM 01:43 PM [facility] ([facility]) Comment: Refere nce [...] Feb 07, 2022 01:18 PM Reporting Lab: [place] [facility]L [facility] [facility] [facility] [address] [facility] [address] Performing Lab: [place] CNTRL [place] [facility] [address] [facility] [address] C REACTIVE PROTEIN (CRPH) 2.32 See eval. Feb 07, 2022 [place] CN[facility] WSTRN MALARIA/BABESIA EXAM Specimen T ype: BLOOD 01:43 PM [place] [facility] Comment: Due to the cyclical shed rates of these parasites, one negative specimen does not rule out the possibility of a parasitic infection. Obtain specimens at 6-hour intervals for 36 hours for a com prehensive exami nation. Test Performed by [facility] [place], [facility], [address] [place] [address] Ronald Abdul M.D., Ph.D., Director of Laboratories , [facility] [id number] TEST PERFORMED AT: , Ordering Provid er: DIMITRI SCRUGGS Report Released Date/Time: Feb 07, 2022 01:29 PM Reporting Lab: [place] [facility] [place] [facility] [address] [facility] [address] Performing Lab: [place] CN[facility]L [place] [facility] [address] [facility] [address], [address] [facility] [place] [address] MALARIA/BABESIA EXAM Negative Negative Feb 07, 2022 MS CNTRL WSTRN CORA SCREEN/TITER Specimen Type: SERUM 01:43 PM [place] [facility] No comment enter ed. Ordering Provid er: DIMITRI SCRUGGS Report Released Date/Time: Feb 07, 2022 01:29 PM Reporting Lab: [place] [facility] [place] [facility] [address] [facility] [address] Performing Lab: [place] CN[facility]L [place] [facility] [address] [facility] [address] CORA SCREEN NEG NEG <1:40 Feb 07, 2022 01:43 [place] CN[facility] WSTR[facility] VITAMIN B12 Specimen Typ e: SERUM PM [place] [facility] No comment enter ed. Ordering Provid er: DIMITRI SCRUGGS Report Released Date/Time: Feb 07, 2022 07:49 AM Reporting Lab: [place] [facility] [place] [facility] [address] [facility] [address] Performing Lab: [facility] [address] [facility] [address] VITAMIN B12 593 200-900 Feb 07, 2022 [facility], AUTOMATED Specimen Ty pe: BLOOD 01:43 PM [facility] No comment enter ed. Ordering Provid er: DIMITRI SCRUGGS Report Released Date/Time: Feb 07, 2022 01:18 PM Reporting Lab: [facility] [address] [facility] [address] Performing Lab: [facility] [address] [facility] [address] SED RATE, AUTOMATED 9 0-15 Feb 07, 2022 [facility] URINALYSIS CLEAN Specimen Type: URINE 01:43 PM [facility] CATCH No comment enter ed. Ordering Provid er: DIMITRI SCRUGGS Report Released Date/Time: Feb 07, 2022 07:50 AM Reporting Lab: [facility] [address] [facility] [address] Performing Lab: [facility] [address] [facility] [address] UA COLOR Yellow Yellow UA APPEARANCE Clear Clear UA GLUCOSE Negative Negative UA KETONES Negative Neg UA BLOOD Negative Neg UA PROTEIN Negative Neg UA NITRITE Negative Neg UA BILIRUBIN Negative Neg UA SPECIFIC GRAVITY 1.017 1.016-1.02 2 UA pH 6.0 5.0-9.0 UA UROBILINOGEN <2.0 <2.0 UA LEUKOCYTE ESTERASE Negative Neg Feb 07, 2022 [facility] CBC AND DIFF Specimen Type: BLOOD 01:43 PM [facility] (AUTO) No comment enter ed. Ordering Provid er: DIMITRI SCRUGGS Report Released Date/Time: Feb 07, 2022 07:49 AM Reporting Lab: [facility] [address] [facility] [address] Performing Lab: [facility] [address] [facility] [address] WBC 6.22 4.50-11.00 RBC 5.24 4.23-5.66 HGB 15.7 12.8-17 HCT 44.8 39.2-50.4 MCV 85.5 82-99 MCHC 35.0 30.8-35.1 PLT 390 H 140-360 RDW-CV 11.4 L 12.0-16.0 Sebastian, Abs 0.46 0.30-1.10 MCH 30.0 26.2-32.6 Neut % 60.2 Lymph % 30.1 Sebastian % 7.4 Eos % 1.1 Baso % 0.6 Neut, Abs 3.74 2.20-7.60 Lymph, Abs 1.87 1.00-3.20 Eos, Abs 0.07 0.03-0.44 Baso, Abs 0.04 0.01-0.13 Immature Gran % 0.6 Immature Gran, Abs 0.04 0.00-0.06 Social History: Smoking Status (Most current) and [...] VA-TOBACCO NEVER USED [place] C NTRL [place] [facility] Encounter Notes: All associated encounter notes This section contains the clinical notes associated to the Encounter. Date/Time Encounter Note(s) Provider Source Mar 04, 2022 03:15 PM MENTAL HEALTH TELEPHONE ENCOUNTER NOTE: ROCAEL BROUSSARD CNTRL WSTRN LOCAL TITLE: TELEPHONE NOTE/MENTAL HEALTH [place] [facility] STANDARD TITLE: MENTAL HEALTH TELEPHONE ENCOUNTE R NOTE DATE OF NOTE: MAR 04, 2022@15:15 ENTRY DATE: MAR 04, 2022@15:15:25 AUTHOR: ROCAEL GREGOIRO EXP COSIGNER: URGENCY: STATUS: COMPLETED Left message for Fertile asking for a call back. /ivelisse/ ROCAEL GREGORIO PROGRAM STRATEGIST Signed: 03/04/2022 15:16
--- OUTSIDE RECORDS SUMMARY | 2022-04-18 10:25 | XMS_ITS ---
:1990 Author Organization Department of [facility] rs Address [address] [place] [address] Support Name Relationship Address Phone TETE TRAN Unavailable [address] [facility] [place] [address] THOMAS MONTOYA Unavailable [address] [place] [address] Insurance Providers: All historical and current Section [...] Policy Number Ojeda [facility] Aug 03, [id number] [phone] ALIAROSINA Mane PATIENT BEE GIMENEZ 2019 [id number] STEPHANIE JOHNSON [facility] ORGANIZ E DEPT Selected Encounter This section includes the information on record at [place] for the Encounter. Date/Time Encounter Type Encounter Reason Provider Source Description Mar 18, 2022 COMMUNITY/WORK TELEPHONE/MH VOC ICD-10-CM Z56.0 ROCAEL GREGORIO 10:07 AM REINTEGRATION ASSISTANCE Unemployment, unspecified with Provider Comments: Unemployment, unspecified IHE Encounter Template Text not used by [place] Assessments - Encounter Diagnoses This section includes the primary and secondary diagnoses documented for the Encounter. Date/Time Primary/Secondary Diagnosis Name Provider Source Diagnosis Mar 18, 2022 PRIMARY JG [facility] W[facility] N 10:07 AM unspecified [facility] Plan of Treatment: Future Appointments (+ 6 months) and Future Tests (+/- 45 days) The Plan of Treatment section includes future care activities for the patient from all [place] treatmentfacilities. This section includes future appointments and future orders which are active, pending orscheduled.Future Appointments This section includes appointments that were scheduled to occur 6 months from the date of the Encounter, up to a maximum of 20 appointments. The data comes from all [place] treatment facilities. Appointment Date/Time Appointment Type Appointment Facili ty Name Mar 28, 2022 09:00 AM AMBULATORY - [facility]IATRY [place] [facility] Apr 17, 2022 01:00 PM AMBULATORY - NONE [place] [facility] W[facility]N [facility] Apr 25, 2022 09:00 AM AMBULATORY - PSYCHIATRY [place] [facility] May 09, 2022 09:00 AM [facility]UL[facility] [place] [facility] May 23, 2022 09:00 AM AMBULATORY - PSYCHIATRY [place] [facility] Jul 17, 2022 08:30 AM AMBULATORY - NONE [facility] Aug 28, 2022 09:30 AM AMBULATORY - [facility]IC[facility] Social History: Smoking Status (Most current) [...] 23, 2021 02:30 PM VA-TOBACCO NEVER USED [facility] Encounter Notes: All associated encounter notes This section contains the clinical notes associated to the Encounter. Date/Time Encounter Note(s) Provider Source Mar 18, 2022 10:07 AM MENTAL HEALTH TELEPHONE ENCOUNTER NOTE: ROCAEL BROUSSARD [facility] LOCAL TITLE: TELEPHONE NOTE/MENTAL HEALTH [facility] STANDARD TITLE: MENTAL HEALTH TELEPHONE ENCOUNTE R NOTE DATE OF NOTE: MAR 18, 2022@10:07 ENTRY DATE: MAR 18, 2022@10:07:14 AUTHOR: ROCAEL GREGORIO EXP COSIGNER: URGENCY: STATUS: COMPLETED [facility] left message for requesting a c/b if he is interested in resuming Voc Rehab services. sent a letter on this date notifying him failure to contact [facility] by 04/01/22 will result in his case b eing closed. /ivelisse/ ROCAEL GREGORIO PRINTING MANAGER Signed: 03/18/2022 10:09
--- OUTSIDE RECORDS SUMMARY | 2022-04-18 10:25 | XMS_ITS | Encounter Summary ---
:1990 Author Organization Department [facility] rs Address [address] [place] [address] Support Name Relationship Address Phone TETE TRAN Unavailable [address] [facility] [place] [address] THOMAS MONTOYA Unavailable [address] [facility] [place] [address] Insurance Providers: All historical and current Section Date Range: From patient's date of to the date document was created.This section includes the names of all active insurance providers for the patient. Insurance Type of Plan Start of End of Group Member Insurance Policy P atient's Provider Coverage Name Policy Policy Number ID Provider's Ojeda's Relationship Coverage Coverage Telephone Name to Policy Number Ojeda [facility] Aug 03, [id number] [phone] ROSINA CALLAHAN 2019 [id number] STEPHANIE JOHNSON [facility] ORGAN E DEPT Selected Encounter This section includes the information on record at [place] for the Encounter. Date/Time Encounter Type Encounter Description Reason Provider Source Mar 28, 2022 02:00 Outpatient Encounter TELEPHONE [facility] IHE Encounter Template Text not used by [place] Plan of Treatment: Future Appointments (+ 6 months) and Future Tests (+/- 45 days) The Plan of Treatment section includes future care activities for the patient from all [place] treatmentfacilities. This section includes future appointments and future orders which are active, pending orscheduled.Future Appointments This section includes appointments that were scheduled to occur 6 months from the date of the Encounter, up to a maximum of 20 appointments. The data comes from all [place] treatment facilities. Appointment Date/Time Appointment Type Appointment Facili ty Name Apr 17, 2022 01:00 PM AMBULATORY - NONE [facility] Apr 25, 2022 09:00 AM AMBULATORY - PSYCHIATRY [place] [facility] [place] [facility] May 09, 2022 09:00 AM AMBULATORY - PSYCHIATRY [place] [facility]L [place] [facility] May 23, 2022 09:00 AM AMBULATORY - PSYCHIATRY [place] [facility]L [place] [facility] Jul 17, 2022 08:30 AM AMBULATORY - NONE [place] CNTRL WSTRN [place] [facility] Aug 28, 2022 09:30 AM AMBULATORY - MEDICINE [place]L [place] [facility] Social History: Smoking Status (Most [...] PM VA-TOBACCO NEVER USED [place] C NTRL TRN [facility] Encounter Notes: All associated encounter notes This section contains the clinical notes associated to the Encounter. Date/Time Encounter Note(s) Provider Source Mar 28, 2022 02:01 PM ACCOUNTING OF DISCLOSURES NOTE: HOWARD STUART [facility] LOCAL TITLE: STATE PRESCRIPTION DRUG MONITORING PROGRAM [facility] STANDARD TITLE: ACCOUNTING OF DISCLOSURES NOTE DATE OF NOTE: MAR 28, 2022@14:01:43 ENTRY DATE: MAR 28, 2022@14:01:43 AUTHOR: DENISE STUART EXP COSIGNER: URGENCY: STATUS: COMPLETED This PDMP query was submitted by Amaury Stuart. The clinical justification for this PDMP query i s to review controlled substances prescribed outside of the [facility], and any additional information that may become available, as an important compo nent of standard clinical care, and in accordance with [facility] policy. Patient information was shared with the PDMP [employer] [place]. No prescription(s) for controlled substances out side the [facility] were found in the last 90 days. /ivelisse/ DENISE STUART MD PSYCHIATRIST Signed: 03/28/2022 14:02
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
--- OUTSIDE RECORDS SUMMARY | 2022-04-18 10:25 | XMS_ITS | Encounter Summary ---
:1990 Author Organization Department of [facility] rs Address [address] [place] [address] Support Name Relationship Address Phone TETE TRAN Unavailable [address] [facility] [phone] [place] [address] THOMAS MONTOYA Unavailable [address] [place] [address] Insurance Providers: All historical and current Section Date Range: From patient's date of to the date document was created.This section includes the names of all active insurance providers for the patient. Insurance Type of Plan Start of End of Group Member Insurance Policy P atient's Provider Coverage Name Policy Policy Number ID Provider's Ojeda's Relationship Coverage Coverage Telephone Name to Policy Number Ojeda [facility] Aug 03, [id number] [phone] ALIAROSINA Mnae PATIENT BEE GIMENEZ 2019 [id number] STEPHANIE JOHNSON [facility] ORGANIZ E DEPT Selected Encounter This section includes the information on record at [place] for the Encounter. Date/Time Encounter Type Encounter Reason Provider Source Description Apr 01, 2022 SUPP MAINT CWT/SE ICD-10-CM Z56.9 ROCAEL QUINTERO 10:48 AM EMPLOY, 15 MIN Unspecified problems related to employment with Provider Comments: Unspecified Problems Related to Employment IHE Encounter Template Text not used by [place] Assessments - Encounter Diagnoses This section includes the primary and secondary diagnoses documented for the Encounter. Date/Time Primary/Secondary Diagnosis Name Provider Source Diagnosis Apr 08, 2022 PRIMARY Unspecified ROCAEL QUINTERO [place] CNTRL WSTRN 10:52 AM problems related [place] [facility] to employment Plan of Treatment: Future Appointments (+ 6 [...] 01:00 PM AMBULATORY - NONE [place] [facility]L TRN [facility] Apr 25, 2022 09:00 AM AMBULATORY - PS[facility]CHIATRY [place] [facility] May 09, 2022 09:00 AM AMBULATORY - [facility]IATRY [place] [facility] May 23, 2022 09:00 AM AMBULATORY - PSYCHIATRY [place] [facility] Jul 17, 2022 08:30 AM AMBULATORY - NONE [place] [facility] TRN [facility] Aug 28, 2022 09:30 AM AMBULATORY - MEDICINE [facility] Social History: Smoking Status (Most [...] VA-TOBACCO NEVER USED [facility] N[facility]L [facility] Encounter Notes: All associated encounter notes This section contains the clinical notes associated to the Encounter. Date/Time Encounter Note(s) Provider Source Apr 08, 2022 10:48 AM VOCATIONAL REHABILITATION DISCHARGE NOTE: [facility]EL [facility] TITLE: VOCATIONAL REHABILITATION/TRANSITI ON-EXIT SUMMARY R 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 Baljeet was pleased with resume, then s topped communicating. 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 Only worked with [employer] a couple of times. 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 DISCHARGE PLAN: Baljeet was asked to seek new consult should his employment status change and he wish assistance with finding a new job. /ivelisse/ ROCAEL QUINTERO CANE PACKER Signed: 04/08/2022 10:52
[2022-04-18 10:26] LABS: MANUAL DIFF FLAG NO
--- OUTSIDE RECORDS SUMMARY | 2022-04-18 10:26 | XMS_ITS | Encounter Summary ---
:1990 Author Organization Department of [facility] rs Address [address] [place] [address] Support Name Relationship Address Phone TETE TRAN Unavailable [address] [facility] [phone] [address] [place] [address] THOMAS MONTOYA Unavailable [address] [place] [address] Insurance Providers: All historical and current Section [...] [facility] Aug 03, [id number] [phone] ALIADarlyn CowanAR ASHLEE GAMBOA [facility] 2019 [id number] STEPHANIE JOHNSON [facility] DEPT Selected Encounter This section includes the information on record at [place] for the Encounter. Date/Time Encounter Type Encounter Reason Provider Source Description Apr 17, 2022 DENTAL DENTAL ICD-10-CM K08.9 MELINDA SELF 01:00 PM PANORAMIC IMAGE Disorder of teeth ENT and supporting structures, unspecified with Provider Comments: Disorder of teeth and supporting structures, unspecified IHE Encounter Template Text not used by [place] Assessments - Encounter Diagnoses This section includes the primary and secondary diagnoses documented for the Encounter. Date/Time Primary/Secondary Diagnosis Name Provider Source Diagnosis Apr 17, 2022 PRIMARY Disorder of teeth MELINDA SELF [facility] 01:51 PM and supporting ENT [place] [facility] structures, unspecified Plan of Treatment: Future Appointments (+ 6 months) and Future Tests (+/- 45 days) The Plan of Treatment section includes future care activities for the patient [facility] [place] [facility] This section includes future appointments and future orders which are active, pending orscheduled.Future Appointments This section includes appointments that were scheduled to occur 6 months from the date of the Encounter, up to a maximum of 20 appointments. The data comes from all [place] treatment facilities. Appointment Date/Time Appointment Type Appointment Facili ty Name Apr 25, 2022 09:00 AM AMBULATORY - PSYCHIATRY [place] [facility] [place] [facility] May 09, 2022 09:00 AM AMBULATORY - PSYCHIATRY [place] [facility] [place] [facility] May 23, 2022 09:00 AM AMBULATORY - PS[place]CHIATRY [place] [facility] [place] [facility] Jul 17, 2022 08:30 AM AMBULATORY - NONE [place] [facility] [place] [facility] Aug 28, 2022 09:30 AM AMBULATORY - MEDICINE [place] [facility] [facility] Social History: Smoking Status (Most current) [...] PM VA-TOBACCO NEVER USED [place] C [facility] [place] [facility] Encounter Notes: All associated encounter notes This section contains the clinical notes associated to the Encounter. Date/Time Encounter Note(s) Provider Source Apr 17, 2022 04:27 DENTISTRY [facility] LOCAL TITLE: CONSULT REPORT/DENTAL [place] [facility] STANDARD TITLE: DENTISTRY CONSULT DATE OF NOTE: APR 17, 2022@16:27 ENTRY DATE: APR 17, 2022@16:27:19 AUTHOR: NATALIIA SELF EXP COSIGNER: URGENCY: STATUS: COMPLETED Radiographs taken for HERNAN /ivelisse/ NATALIIA SELF DMD DENTIST Signed: 04/17/2022 16:27 Apr 17, 2022 01:50 DENTISTRY NOTE: [facility] LOCAL TITLE: DENTAL NOTE [place] [facility] STANDARD TITLE: DENTISTRY NOTE DATE OF NOTE: APR 17, 2022@13:50 ENTRY DATE: APR 17, 2022@13:51:23 AUTHOR: NATALIIA SELF EXP COSIGNER: URGENCY: STATUS: COMPLETED Patient Name: GEORGE MONTOYA, : [birth year], Age: 32 Visit: S: Apr 17, 2022@13:00 CWM/NO/DENTAL/DMD2 PM. Primary PCE Diagnosis: K08.9 (DISORDER OF TEETH AND SUPPORTING STRUCTURES, UNSPECIFIED). Dental Category: 15-OPC, Class IV. Treatment St atus: Active. Completed Care: (D0150) COMPREHENSVE ORAL EVALUATION. DX: K08.9 Disorder of Teeth and Supporting Stru ctures, unspecified (D0330) DENTAL PANORAMIC IMAGE. 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 GABAPENTIN 400MG CAP - (ACTIVE) PRAZOSIN HCL 2MG CAP - (ACTIVE) BUPROPION 150MG 24HR XL TAB (ONCE DAILY) - (ACT ЕКАТЕРИНА) ESCITALOPRAM OXALATE 20MG TAB - (ACTIVE) LORAZEPAM 1MG TAB - (ACTIVE) SODIUM FLUORIDE 1.1% TOOTHPASTE - (ACTIVE) CARBOXYMETHYLCELLULOSE 0.5% OPH SOLN - (ACTIVE) Social History: Patient denies history of alcohol, tobacco, and drug use. Intraoral and Extraoral Screening Exam Findings: 04/17/2022 Head and neck assessment with oral c ancer screening is negative: no apparent pathology noted. Radiographic Findings: Radiographic findings consistent with charted e ntries Oral Examination: Oral Health Assessment Findings: Plaque Index: 1 - Slight Xerostomia: 0 - None Caries Risk: 2 - Moderate Oral Hygiene: 1 - Good Dental Examination: Missing Teeth: 1, 16, 17, 32. Existing Dental Restorations: Restored: 13(O) Resin, 4(DO) Resin. Other Dental Findings: Watch: 15 , 30 . Dentition exhibits no apparent evidence of dent al pathology at this visit Other: Some chipping (30-MO), & incipient caries (15-M ) No Significant Tooth Mobility Noted Periodontal Screening/Recording (PSR): 3-2-3 - - - 3-2-3 Periodontal Assessment: Good Periodontal Health TMJ Findings: History: Patient reports no symptoms associated with TMJ. Clinical Findings: Occlusal Findings: Normal Mandibular relationship Assessment/Plan: No contraindications for planned procedure(s). Planned Procedures: Unsequenced (D9944) OCCLUSAL GUARD HARD: . DX: (). Phase 1 (D2392) POST 2 [facility] RESINBASED CMPST: 30(MO). D X: (). Reviewed risks/benefits/alternatives associated with the proposed treatment plan. Patient agrees to treatment shamika n as discussed. Disposition: Next visit: Deliver OG + Restore 30 + Prophy Patient to return to dental clinic for continui ng care. - - - - - - - - - - - - - - - - - - - - - - - - - - - - - - /ivelisse/ NATALIIA SELF DMD DENTIST Signed: 04/17/2022 13:51
--- OUTSIDE RECORDS SUMMARY | 2022-04-18 10:26 | XMS_ITS | Encounter Summary ---
:1990 Author Organization Department [facility] rs Address [address] [place] [address] Support Name Relationship Address Phone TETE TRAN Unavailable [address] [facility] [place] [address] THOMAS MONTOYA Unavailable [address] [place] [address] Insurance Providers: All historical and current Section Date Range: From patient's date of to the date document was created.This section includes the names of all active insurance providers for the patient. Insurance Type of Plan Start of End of Group Member Insurance Policy P atient's Provider Coverage Name Policy Policy Number ID Provider's Ojeda's Relationship Coverage Coverage Telephone Name to Policy Number Ojeda [facility] Aug 03, [id number] [phone] ALIAROSINA Mane 2019 [id number] STEPHANIE JOHNSON [facility] DEPT Selected Encounter This section includes the information on record at [place] for the Encounter. Date/Time Encounter Type Encounter Description Reason Provider Source Apr 16, 2022 10:19 Outpatient Encounter DENTAL AM IHE Encounter Template [...] 17, 2022 01:00 PM AMBULATORY - NONE [facility] Apr 25, 2022 09:00 AM AMBULATORY - PS[facility]ATRY [facility] [place] [facility] May 09, 2022 09:00 AM AMBULATORY - [place]IATRY [place] [facility] [place] [facility] May 23, 2022 09:00 AM AMBULATORY - [place]IATRY [place] [facility] [place] [facility] Jul 17, 2022 08:30 AM AMBULATORY - NONE [place] [facility] [facility] Aug 28, 2022 09:30 AM AMBULATORY [place] MEDICINE [place] [facility] [place] [facility] Social History: Smoking Status (Most [...] VA-TOBACCO NEVER USED [place] [facility] Encounter Notes: All associated encounter notes This section contains the clinical notes associated to the Encounter. Date/Time Encounter Note(s) Provider Source Apr 16, 2022 10:19 DENTISTRY ADMINISTRATIVE NOTE: MARGARITO GASPAR [place] [facility] LOCAL TITLE: DENTAL ADMINISTRATIVE NOTE [facility] STANDARD TITLE: DENTISTRY ADMINISTRATIVE NOTE DATE OF NOTE: APR 16, 2022@10:19 ENTRY DATE: APR 16, 2022@10:19:13 AUTHOR: MONIKA GASPAR COSIGNER: URGENCY: STATUS: COMPLETED Spoke to patient and confirmed dental appointmen t on 04/17/2022 at 1:00pm. /ivelisse/ MONIKA GASPAR Signed: 04/16/2022 10:19
[2022-04-18 10:29] LABS: Basophils Percent Auto 0.6 % (0-2); Eosinophils Percent Auto 0.8 % (0-4); Hematocrit 46.4 % (42.0-52.0); Hemoglobin 16.4 g/dl (14.0-18.0); Imm Gran Abs Auto 0.01 X10*3/uL (0.00-0.03); Imm Gran Pct Auto 0.3 % (0.0-0.4); Lymphocytes Absolute Auto 1.2 X10*3/uL (1.2-4.9); Lymphocytes Percent Auto 31.8 % (20-40); Mean Corpuscular HGB Conc 35.3 g/dl (31.0-36.0); Mean Corpuscular Hemoglobin 30.5 pg (27.0-33.0); Mean Corpuscular Volume 86.2 fL (80.0-98.0); Mean Platelet Volume 9.9 fL (9.4-12.4); Monocytes Absolute Auto 0.4 X10*3/uL (0.1-1.2); Monocytes Percent Auto 10.2 % (2-11); Neutrophils Percent Auto 56.3 % (45-73); Platelet Count 193 X10*3/uL (160-400); Red Blood Count 5.38 X10*6/uL (4.60-5.80); Red Cell Distribution Width 11.9 % (11.0-16.0); White Blood Count 3.6 X10*3/uL (4.8-10.8)
[2022-04-18 10:39] LABS: D Dimer High Sensitivity < 150 NG/ML
--- NOTE | 2022-04-18 10:39 | ECG_ITS ---
Test Reason : jaren pain Blood Pressure : / mmHG Vent. Rate : 072 BPM Atrial Rate : 072 BPM P-R Int : 206 ms QRS Dur : 092 ms QT Int : 362 ms P-R-T Axes : 053 081 068 degrees QTc Int : 396 ms Normal sinus rhythm ST elevation, consider early repolarization, pericarditis, or injury Nonspecific ST abnormality Abnormal ECG When compared with ECG of 29-JAN-2022 07:29, No significant change was found Referred By: Claudia Jama Electronically Signed By:UZMA CHASE
[2022-04-18 10:41] LABS: Alanine Aminotransferase 21 U/L (0-40); Albumin Level 4.6 g/dL (3.5-5.0); Alkaline Phosphatase 64 U/L (39-117); Anion Gap 16 (12-20); Aspartate Amino Transferase 20 U/L (5-37); Bilirubin Total 0.8 mg/dL (0.0-1.0); Blood Urea Nitrogen 12 mg/dL (9-16); Calcium 9.7 mg/dL (8.4-10.2); Carbon Dioxide 25 mmol/L (22-29); Chloride 102 mmol/L (96-108); Creatinine Clr Calc Pharmacy 91.6; Estimated Glomerular Filt Rate > 60; Glucose Random 99 mg/dL (60-115); Potassium 4.6 mmol/L (3.3-5.1); Sodium 138 mmol/L (135-145); Total Protein 7.2 g/dL (6.5-8.0)
[2022-04-18 11:09] LABS: Troponin-I High Sensitivity < 3.5 ng/L (<3.5-35.0)
[2022-04-18 12:30] VITALS: BP 125/64; PULSE 83; RESP 14; O2SAT 98
== END 2022-04-18 13:08 | disposition home or self-care (01) ==
PROVIDERS: Physician Assistant Medical; Emergency Provider Emergency Medicine; PCP Nurse Practitioner Family
DX: M25.572 Pain in left ankle and joints of left foot (principal); R07.89 Other chest pain; R06.02 Shortness of breath; Z79.899 Other long term (current) drug therapy
CPT/HCPCS: 36415; 76882; 80053; 84484; 85025; 85379; 93005; 99284

== ENCOUNTER 2022-04-24 19:20 | Outpatient (REF) | payer OTHER, SELFPAY ==
--- NOTE | ~2022-04-24 | MR_ITS ---
EXAMINATION: MRI ANKLE WITHOUT CONTRAST, LEFT CLINICAL INFORMATION: Pain and swelling. Achilles pain. COMPARISON: None. TECHNIQUE: Multisequence MR imaging of the left ankle was obtained without contrast on a high-field strength scanner. FINDINGS: BONE AND ARTICULAR CARTILAGE: No abnormal marrow signal. No stress reaction or fracture. The ankle mortise is maintained. No talar osteochondral lesion. Intact articular cartilage. ACHILLES TENDON: Focal left right thickening of the Achilles tendon measuring up to 3.8 cm in craniocaudal dimension with minimal increase intrasubstance T2 signal consistent with chronic tendinosis. Mild adjacent soft tissue edema consistent with peritendinitis. No transverse tendon tear or tendon retraction. OTHER TENDONS: Intact. LIGAMENTS: No evidence of acute ligament injury. JOINT FLUID AND SOFT TISSUES: No joint effusion. Subcutaneous soft tissues are normal. PLANTAR FASCIA: Intact. SINUS TARSI AND TARSAL TUNNEL: Patent. MR/MR ankle LT wo con IMPRESSION: Focal Achilles tendinosis in the region of the overlying skin marker without a measurable tendon tear. Mild peritendinitis.
== END 2022-04-24 19:21 | disposition home or self-care (01) ==
LOC: HO.MRI 19:20
PROVIDERS: Visit Provider Internal Medicine
DX: M76.62 Achilles tendinitis, left leg (principal); S86.012A Strain of left Achilles tendon, initial encounter; R60.0 Localized edema
CPT/HCPCS: 73721; 99212

== ENCOUNTER → 2022-04-25 14:25 | Outpatient (BNVA) | payer OTHER, SELFPAY | PROVIDERS: PCP Nurse Practitioner Family; Visit Provider Internal Medicine | DX: R07.9 Chest pain, unspecified (principal); R00.0 Tachycardia, unspecified; R06.02 Shortness of breath | CPT/HCPCS: 99213 ==

== ENCOUNTER 2022-04-25 15:26 | Emergency (ER) | payer OTHER, SELFPAY ==
--- NOTE | ~2022-04-25 | XR_ITS ---
EXAMINATION: XR CHEST CLINICAL INFORMATION: Xiphoid pain COMPARISON: Previous chest x-ray January 2022 TECHNIQUE: Frontal view of the chest was obtained. FINDINGS: No significant abnormality is noted involving the heart, lungs, mediastinum, bony thorax or soft tissues. XR/XR chest 1V IMPRESSION: Unremarkable examination.
[2022-04-25 16:30] VITALS: BP 117/74; PULSE 88; RESP 16; TEMP 36.4; O2SAT 99; BMI 27.3
--- NOTE | 2022-04-25 16:34 | ECG_ITS ---
Test Reason : ARRHYTHMIA Blood Pressure : / mmHG Vent. Rate : 077 BPM Atrial Rate : 077 BPM P-R Int : 190 ms QRS Dur : 094 ms QT Int : 360 ms P-R-T Axes : 055 085 074 degrees QTc Int : 407 ms Normal sinus rhythm with sinus arrhythmia ST elevation, consider early repolarization, pericarditis, or injury Abnormal ECG When compared with ECG of 18-APR-2022 10:43, No significant change was found Referred By: Generic ED Physician Electronically Signed By:RAN RODRGIES MD
[2022-04-25 17:26] LABS: MANUAL DIFF FLAG NO
[2022-04-25 17:28] LABS: Basophils Percent Auto 0.7 % (0-2); Eosinophils Absolute Auto 0.1 X10*3/uL (0.0-0.4); Eosinophils Percent Auto 1.2 % (0-4); Hematocrit 45.5 % (42.0-52.0); Hemoglobin 16.2 g/dl (14.0-18.0); Imm Gran Abs Auto 0.01 X10*3/uL (0.00-0.03); Imm Gran Pct Auto 0.2 % (0.0-0.4); Lymphocytes Absolute Auto 1.7 X10*3/uL (1.2-4.9); Lymphocytes Percent Auto 27.3 % (20-40); Mean Corpuscular HGB Conc 35.6 g/dl (31.0-36.0); Mean Corpuscular Hemoglobin 30.1 pg (27.0-33.0); Mean Corpuscular Volume 84.6 fL (80.0-98.0); Mean Platelet Volume 9.8 fL (9.4-12.4); Monocytes Absolute Auto 0.5 X10*3/uL (0.1-1.2); Monocytes Percent Auto 8.6 % (2-11); Neutrophils Absolute Auto 3.8 x10*3/uL (2.0-8.3); Platelet Count 250 X10*3/uL (160-400); Red Blood Count 5.38 X10*6/uL (4.60-5.80); Red Cell Distribution Width 11.9 % (11.0-16.0); White Blood Count 6.1 X10*3/uL (4.8-10.8)
[2022-04-25 17:44] LABS: D Dimer High Sensitivity < 150 NG/ML
[2022-04-25 17:45] LABS: Alanine Aminotransferase 17 U/L (0-40); Albumin Level 4.7 g/dL (3.5-5.0); Alkaline Phosphatase 71 U/L (39-117); Anion Gap 16 (12-20); Aspartate Amino Transferase 19 U/L (5-37); Bilirubin Direct 0.2 mg/dL (0.0-0.5); Bilirubin Total 0.5 mg/dL (0.0-1.0); Blood Urea Nitrogen 19 mg/dL (9-16); Calcium 9.8 mg/dL (8.4-10.2); Carbon Dioxide 26 mmol/L (22-29); Chloride 102 mmol/L (96-108); Creatinine Clr Calc Pharmacy 84.7; Estimated Glomerular Filt Rate > 60; Glucose Random 84 mg/dL (60-115); Magnesium 1.9 mg/dL (1.6-2.6); Potassium 4.4 mmol/L (3.3-5.1); Sodium 140 mmol/L (135-145); Total Protein 7.5 g/dL (6.5-8.0)
[2022-04-25 17:48] LABS: B Type Natriuretic Peptide < 10 pg/mL (<100); Troponin-I High Sensitivity < 3.5 ng/L (<3.5-35.0)
--- OUTSIDE RECORDS SUMMARY | 2022-04-25 18:30 | XMS_ITS | Continuity of Care Document ---
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 the causative agent of Human Monocytic Ehrlichiosis (HME). Infecte [facility] EHRLICHI S IGM AB d individuals [...] infection. This test was developed and its [facility] PANEL IN SERUM analytical perf ormance characteristics have been determined by [place]. It has not been cleared or [...] analytical performance characteristics have been determined by [place]. It has not been cleared or approved by the U.S. Food and Drug Administration. This assay has been validated pursuant to the CLIA regulations and is used for clinical purposes. Test Performed by Betty Aragon, [employer] [address], [address] [place], [place] Ronald Abdul M.D., Ph.D., Director of Laboratories , CLIA [id number] TEST PERFORMED AT: , Ordering Provid er: DIMITRI SCRUGGS Report Released Date/Time: Feb 07, 2022 01:33 PM Reporting Lab: [facility] [address] [address] Performing Lab: [facility] [address] [facility], [address] [facility] [address] ANAPLASM ANAPLASMA <1:64 02/07 Specimen Type : SERUM [facility] A AND PHAGOCYT Comment: REF ERENCE RANGE: <1:64 REFERENCE RANGE: <1:20 Antibody Not Detected Ehrlichia chaffeenis has been identified as the causative agent of Human Monocytic Ehrlichiosis (HME). Infecte W[facility]N EHRLICHI HILUM IGG d individuals produce specific [...] perf ormance characteristics have been determined by [facility], [place], [place]. It has not been cleared or [...] analytical performance characteristics have been determined by [employer] [place], [place]. It has not been cleared or approved by the U.S. Food and Drug Administration. This assay has been validated pursuant to the CLIA regulations and is used for clinical purposes. Test Performed by Betty Aragon, [facility], [address] [place] [address] Ronald Abdul M.D., Ph.D., Director of Laboratories , CLIA [id number] TEST PERFORMED AT: , Ordering Provid er: DIMITRI SCRUGGS Report Released Date/Time: Feb 07, 2022 01:33 PM Reporting Lab: [facility] [address] [address] Performing Lab: [facility] [address] [facility], [address] [facility] [address] ANAPLASM ANAPLASMA <1:20 02/07 Specimen Type : [facility]UM [facility] A AND PHAGOCYT /2021 Comment: REF ERENCE RANGE: <1:64 REFERENCE RANGE: <1:20 Antibody Not Detected Ehrlichia chaffeenis has been identified as the causative agent of Human Monocytic Ehrlichiosis (HME). [facility] EHRLICHI HILUM IGM d individuals produce specific [...] infection. This test was developed and its [facility] PANEL IN SERUM analytical perf ormance characteristics have been determined by [place]. It has not been cleared or [...] analytical performance characteristics have been determined by [place]. It has not been cleared or approved by the U.S. Food and Drug Administration. This assay has been validated pursuant to the CLIA regulations and is used for clinical purposes. Test Performed by [facility], [employer] [facility], [address] [place] [address] Ronald Abdul M.D., Ph.D., Director of Laboratories , CLIA [id number] TEST PERFORMED AT: , Ordering Provid er: DIMITRI SCRUGGS Report Released Date/Time: Feb 07, 2022 01:33 PM Reporting Lab: [facility] [address] [address] Performing Lab: [facility] [address] [facility], [address] [facility] [address] ANAPLASM EHRLICHIA SEE NOTE 02/07 Specimen Typ e: SERUM [facility] A AND CHAFFEENS /2021 Comment: REF ERENCE RANGE: <1:64 REFERENCE RANGE: <1:20 Antibody Not Detected Ehrlichia chaffeenis has been identified as the causative agent of Human Monocytic Ehrlichiosis (HME). Infecte [facility] EHRLICH S AB INTER d individual s produce specific antibodies to E. chaffeensis that can be detected by an immuno- fluorescent antibody (IFA) test. Single IgG IFA titers of 1:64 or greater indicate exposure to E. chaffeens [place] A AB is. A four-fold rise in IgG titers between acute and convalescent samples and/or the presence of IgM antibody against E. chaffeensis suggest recent or current infection. This test was developed and its [facility] PANEL analytical perfo rmance characteristics have been determined by [place] It has not been cleared or [...] analytical performance characteristics have been determined by [employer] [place]. It has not been cleared or approved by the U.S. Food and Drug Administration. This assay has been validated pursuant to the CLIA regulations and is used for clinical purposes. Test Performed by Richie myers Dazey, [employer] [facility], [address] [place] [address] Ronald Abdul M.D., Ph.D., Director of Laboratories , CLIA [id number] TEST PERFORMED AT: , Ordering Provid er: IDMITRI SCRUGGS Report Released Date/Time: Feb 07, 2022 01:33 PM Reporting Lab: [facility] [address] [address] Performing Lab: [facility] [address] [facility], [address] [place] [address] ANAPLASM A. SEE NOTE 02/07 Specimen Type: SERUM [facility] A AND /2021 Comment: REF ERENCE RANGE: <1:64 REFERENCE RANGE: <1:20 Antibody Not Detected Ehrlichia chaffeenis has been identified as the causative agent of Human Monocytic Ehrlichiosis (HME). [facility]e [facility] EHRLICHI hilum d individuals p roduce specific [...] infection. This test was developed and its [facility] PANEL analytical perfo rmance characteristics have been determined by [place]. It has not been cleared or [...] analytical performance characteristics have been determined by [employer] [place]. It has not been cleared or approved by the U.S. Food and Drug Administration. This assay has been validated pursuant to the CLIA regulations and is used for clinical purposes. Test Performed by [facility], [employer] [facility], [address] [place] [address] Ronald Abdul M.D., Ph.D., Director of Laboratories , CLIA [id number] TEST PERFORMED AT: , Ordering Provid er: DIMITRI SCRUGGS Report Released Date/Time: Feb 07, 2022 01:33 PM Reporting Lab: [facility] [address] [address] Performing Lab: [facility] [address] [facility], [address] [facility] [address] BABESIA BABESIA Not 02/07 Specimen Type: B LOOD [facility] MICROTI, MICROTI Detected /2021 Comment: The analytical performance characteristics of this test have been determined by [facility]. It has not been cleared by the FDA. WSTRN DNA DNA Ordering Provid er: DIMITRI SCRUGGS PCR([facility]) [PRESENCE] Report Rele ased Date/Time: Feb 07, 2022 01:29 PM TS HCS IN BLOOD Reporting Lab: [facility] [address] [address] WITH PROBE Performing L ab: [facility]PITALUSETS [facility] DETECTION [address] [facility] [address] COREY RICKETTSIA Not 02/07 Specimen Typ e: SERUM [facility] IA RICKETTSII Detected /2021 Comment: Te st Performed by [employer], [employer], [address] [place] [address] Ronald Abdul M.D., Ph.D., Director of Laboratories , CLIA [id number] TEST PERFORMED AT: , WSTRN ANTIBODY IGG AB Ordering Provi rasheed: DIMITRI SCRUGGS PANEL [PRESENCE] Report Relea sed Date/Time: Feb 07, 2022 01:33 PM TS HCS (Q) IN SERUM Reporting Lab: [address] [address] Performing Lab: [facility] [address], [address] [place] [address] COREY RICKETTSIA Not 02/07 Specimen Typ e: SERUM [facility] IA RICKETTSII Detected /2021 Comment: Te st Performed by [employer]ty, [employer], [address] [place] [address] Ronald Abdul M.D., Ph.D., Director of Laboratories , CLIA [id number] TEST PERFORMED AT: , WSTRN ANTIBODY IGM AB Ordering Provi rasheed: DIMITRI SCRUGGS PANEL [PRESENCE] Report Relea sed Date/Time: Feb 07, 2022 01:33 PM TS HCS (Q) IN SERUM Reporting Lab: [facility]ITALUSE[address] [address] Performing Lab: [facility] [address], [address] [place] [address] COREY RICKETTSIA Not 02/07 Specimen Typ e: [facility]UM [facility] IA TYPHI IGM Detected /2021 Comment: Lashawn t Performed by [employer], [employer] [facility], [address] [place] [address] Ronadl Abdul M.D., Ph.D., Director of Laboratories , CLIA [id number] TEST PERFORMED AT: , [facility] ANTIBODY AB Ordering Provi rasheed: DIMITRI SCRUGGS [place] PANEL [PRESENCE] Report Relea sed Date/Time: Feb 07, 2022 01:33 PM [facility] (Q) IN SERUM Reporting Lab: [facility] [address] [address] Performing Lab: [facility] [address], [address] [facility] [facility] [address] LYME BORRELIA Presumpt 02/07 Specimen Type: SERUM [facility] SEROLOGY BURGDORFER cristy /2021 Comment: Th e results are supportive evidence [...] of the panel were validated at the [facility] IN SERUM [facility] Molecular D iagnostics Laboratory. [...] applicable. The [place] State Form URL is: http://www.md.gov/dph/dru/dph/infectious_diseases/pdf_forms_/ig16_ceen.pdf Ordering Provid er: DIMITRI SCRUGGS Report Released Date/Time: Feb 07, 2022 07:49 AM Reporting Lab: [facility] [address] [address] Performing Lab: [facility] [address] [facility] [address] LYME BORRELIA POSITIVE 02/07 Specimen Type: [facility]UM [facility] SEROLOGY BURGD Comment: Th e results are supportive evidence for the presence of antibodies and exposure to Borrelia burgdorferi. The LYME SEROLOGY PANEL was performed using the FDA-approved Demetrius YINA Borrelia burdor [facility] PANEL I IGG+IGM feri modified two-tier [...] of the panel were validated at the [facility] [[place]] [place] Molecular Diagnostics Laboratory. Results are considered positive [...] applicable. The [place] State Form URL is: http://www.md.gov/dph/dru/dph/infectious_diseases/pdf_forms_/hf34_eucl.pdf Ordering Provid er: DIMITRI SCRUGGS Report Released Date/Time: Feb 07, 2022 07:49 AM Reporting Lab: [facility] [address] [address] Performing Lab: [facility] [address] [facility] [address] LYME BORRELIA Negative 02/07 Specimen Type: SERUM [facility] SEROLOGY BURGD Comment: Th e results are supportive evidence for the presence of antibodies and exposure to Borrelia burgdorferi. The LYME SEROLOGY PANEL was performed using the FDA-approved Demetrius YINA Borrelia burdor [facility] PANEL I AB feri modified tw [...] of the panel were validated at the [facility] [place] Molecular D iagnostics Laboratory. Results are considered [...] applicable. The [place] State Form URL is: http://www.md.gov/dph/dru/dph/infectious_diseases/pdf_forms_/oc57_gaeo.pdf Ordering Provid er: DIMITRI SCRUGGS Report Released Date/Time: Feb 07, 2022 07:49 AM Reporting Lab: [facility] [address] [address] Performing Lab: [facility] [address] [facility] [address] LYME BORRELIA POSITIVE 02/07 Specimen Type: [facility]UM [facility] SEROLOGY BURGD Comment: Th e results are supportive evidence for the presence of antibodies and exposure to Borrelia burgdorferi. The LYME SEROLOGY PANEL was performed using the FDA-approved Demetrius YINA Borrelia burdor [facility] PANEL I AB feri modified tw o-tier [...] of the panel were validated at the [facility] [place] Molecular D iagnostics Laboratory. Results are considered [...] without signs, symptoms or exposure history. Physicians [facility] report all cases of Lyme disease to their state and local health departments, if applicable. The [place] State Form URL is: http://www.md.gov/dph/dru/dph/infectious_diseases/pdf_forms_/ga53_rxha.pdf Ordering Provid er: DIMITRI SCRUGGS Report Released Date/Time: Feb 07, 2022 07:49 AM Reporting Lab: [facility] [address] [address] Performing Lab: [facility] [address] [facility] [address] FOLATE FOLATE 12.99 5.2 02/07 Specimen Type: [facility] [MASS/VOLU /2021 No comment en tered. WSTRN [place]] IN Ordering Provid er: DIMITRI SCR[facility]GGSOKLA[facility] SER[facility] OR Report Release d Date/Time: Feb 07, 2022 07:49 AM [facility] PLASMA Reporting Lab: [facility] [address] [address] Performing Lab: [facility]ITAL[facility] [address] [facility] [address] C C REACTIVE 2.32 02/07 Specimen Type : [facility] REACTIVE PROTEIN /2022 Comment: Refer ence range changed on 01/07/11 [...] may be associated with infection and inflammation. [facility] SERUM OR Ordering Provi rasheed: DIMITRI SCRUGGS PLASMA BY Report Releas ed Date/Time: Feb 07, 2022 01:18 PM HIGH Reporting Lab: [facility] WSTRN [facility] SENSITIVIT [address] [place] [phone] Y METHOD Performing Lab : [facility] WSTRN [facility] [address] [facility] [facility] [address] MALARIA/ PARASITE Negative 02/07 Specimen Type : BLOOD [facility] BABESIA IDENTIFIED /2021 Comment: Due to the cyclical shed rates of these parasites, one negative specimen does not rule out the possibility of a parasitic infection. Obtain specimens at 6-hour intervals for 36 hours for a com WSTRN EXAM IN BLOOD prehensive exam ination. Test Performed by [facility], [employer] [facility], [address] [place] [address] Ronald Abdul M.D., Ph.D., Director of Laboratories , [facility] [id number] TEST PERFORMED AT: [facility] Ordering Provi rasheed: DIMITRI SCRUGGS [facility] MICROSCOPY Report Relea sed Date/Time: Feb 07, 2022 01:29 PM Reporting Lab: [facility] W[facility]N [facility] [address] [address] Performing Lab: [facility] WSTRN [facility] [address], [address] [place] [address] CORA NUCLEAR AB NEG - 140 02/07 Specimen Type : SERUM [facility] SCREEN/T [PRESENCE] /2021 No comment e ntered. WSTRN ITER IN SERUM Ordering Provi rasheed: DIMITRI SCRUGGS [place] Report Released Date/Time: Feb 07, 2022 01:29 PM TS HCS Reporting Lab: [facility] [place] [facility] [address] [facility] [facility] [address] Performing Lab: [facility] [place] [facility] [address] [facility] [address] Vital Signs Combined list of inpatient and [...] Number For Provider Date Date Visit OUTPATIENT [id number] YOLETTE, 01/30 Release d w/o [employer] KOSTA [facility]itations [facility] Jonathan locke([facility] D Audiolo gy) OUTPATIENT [id number] [facility], 01/30 Releas ed w/o [employer] DEDE A Limitations [facility]al th Clinic Jonathan locke([facility] D Optomet ry Clinic) OUTPATIENT [id number] V-AMY EDWARDS 02/01 Rel eased w/o [employer] STIPATE SIMONA Limitations H ealth D Clinic Jonathan locke([facility] D Recruit Sick Call) OUTPATIENT [id number] [facility], 12/19 Rele ased w/o [employer] 010 ТАТЬЯНА /2010 Limitations [employer] PRE-DEP [facility]( 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 ent Health Center- [facility]) OUTPATIENT [id number] 06/06 Released w /o Theater Limitations Facilit y OUTPATIENT [id number] 04/04/20 RY04/07 Relea sed w/o [employer] 11 BRY D Limitations [employer] PRE/[facility]( ER Deploy ent [facility]) OUTPATIENT [id number] TOPHER, 05/05 Release d Camp MARJAN DAI with Dionne Work/D[facility]( 07/25 BAS) TELE [id number] [facility] TBI 05/07 Camp CONSULT Referra BRY D Dionne l From [employer] [facility] Medical Booked Center( Deploy ent Health Center- [facility]) OUTPATIENT [id number] BLANCO ANIKA, 05/13 Relea sed w/o Camp RENY Limitations Dionne GAUTAM [facility]PATIENT [id number] rehab PATRICIA, 05/15 Released w /o Camp FABIOLA R Limitations [facility] OUTPATIENT [id number] rehab PATRICIA, 05/19 Released w /o Camp FABIOLA R Limitations [facility] OUTPATIENT [id number] rehab PATRICIA, 05/21 Released w /o Camp FABIOLA R Limitations [facility] OUTPATIENT [id number] rehab PATRICIA, 05/26 Released w /o Camp FABIOLA R Limitations [facility] OUTPATIENT [id number] rehab PATRICIA, 05/27 Released w /o Camp FABIOLA R Limitations [facility] ) OUTPATIENT [id number] rehab PATRICIA, 05/28 Released w /o Camp FABIOLA R Limitations Leje [facility] OUTPATIENT [id number] sleep BUENVIAADAIR, 06/09 Relea sed w/o Camp disturb LISA Limitations Maryjo lal [facility] Medical [place]( Sep Div Surg Office) OUTPATIENT [id number] murray chi ANIKA, 06/17 Release d Camp with Dionne GAUTAM Work/Duty [employer] [facility] ) OUTPATIENT [id number] Light BUJACQUELYN, 06/18 Relea sed Camp Duty, LISA with Dionne Back Work/Duty [employer] pain [facility]( Sep Div Surg Office) OUTPATIENT [id number] trt PATRICIA, 06/24 Released w /o Camp FABIOLA R Limitations [facility]je [facility]( [facility] OUTPATIENT [id number] trt PATRICIA, 06/26 Released w /o Camp FABIOLA R Limitations Leje [facility] OUTPATIENT [id number] trt PATRICIA, 06/27 Released w /o Camp FABIOLA R Limitations Leje [facility]( [facility] OUTPATIENT [id number] trt PATRICIA, 06/30 Released w /o Camp FABIOLA R Limitations [facility] OUTPATIENT [id number] trt PATRICIA, 07/02 Released w /o Camp FABIOLA R Limitations Leje [facility] OUTPATIENT [id number] trt PATRICIA, 07/04 Released w /o Camp FABIOLA R Limitations [facility] OUTPATIENT [id number] trt PATRICIA, 07/07 Released w /o Camp FABIOLA R Limitations [facility] OUTPATIENT [id number] trt PATRICIA, 07/09 Released w /o Camp FABIOLA R Limitations Leje [facility]( [facility] OUTPATIENT [id number] trt PATRICIA, 07/11 Released w /o Camp FABIOLA R Limitations Leje [facility]( [facility] OUTPATIENT [id number] PATRICIA, 08/28 Released w /o Camp FABIOLA R Limitations Leje [facility]( [facility] OUTPATIENT [id number] trt ANIKA, 08/28 Release d Camp RENY with Dionne GAUTAM Work/Duty [facility]( [place] [address]) OUTPATIENT [id number] trt PATRICIA, 09/02 Released w /o Camp FABIOLA R Limitations Leje [facility]( [facility] OUTPATIENT [id number] trt PATRICIA, 09/16 Released w /o Camp FABIOLA R Limitations Leje [facility]( [facility] OUTPATIENT [id number] PATRICIA, 09/17 Released w /o Camp FABIOLA R Limitations Leje [facility]( [facility] OUTPATIENT [id number] TOPHER, 09/17 Release d w/o Camp MARJAN DAI Limitations Leje [facility]( 6th ANAY) OUTPATIENT [id number] TOPHER, 09/18 Release d w/o Camp MARJAN SUHAS Limitations Leje [facility]( 6th ANAY) OUTPATIENT [id number] trt PATRICIA, 09/21 Released w /o Camp FABIOLA R Limitations [facility]( [facility] OUTPATIENT [id number] trt PATRICIA, 09/24 Released w /o Camp FABIOLA R Limitations [facility] OUTPATIENT [id number] TOPHER, 10/16 Release d w/o Camp MARJAN SUHAS Limitations Leje [facility]( 6th ANAY) OUTPATIENT [id number] trt PATRICIA, 10/22 Released w /o Camp FABIOLA R Limitations [facility]( [facility] OUTPATIENT [id number] trt PATRICIA, 11/17 Released w /o Camp FABIOLA R Limitations [facility]( [facility] OUTPATIENT [id number] trt PATRICIA, 11/19 Released w /o Camp FABIOLA R Limitations [facility] OUTPATIENT [id number] follow ANIKA, 11/25 Releas ed w/o Camp up Limitations [facility]( [facility] OUTPATIENT [id number] trt PATRICIA, 11/26 Released w /o Camp FABIOLA R Limitations [facility]( [facility] TELE [id number] [place], 12/16 Camp CONSULT MARJAN DAI [facility]( 6th ANAY) OUTPATIENT [id number] follow ANIKA, 01/05 Releas ed w/o Camp up Limitations [facility] [facility] [id number] trt PATRICIA, 02/04 Released w /o Camp FABIOLA R Limitations [facility]( [facility] OUTPATIENT [id number] lamaze1 MIKHAIL, 02/17 Released w/o Camp DONNA R Limitations [facility]( dg 4-Welln [facility]) OUTPATIENT [id number] lamaze2 MIKHAIL, 02/24 Released w/o Camp DONNA R Limitations [facility]( dg 4-Welln ess) OUTPATIENT [id number] CONSTANCIO 04/19 Relea sed w/o Camp Limitations [facility]( Hearing Conserv -B65) OUTPATIENT [id number] Gladis HIGUERA, 05/14 Released w/o Camp Entered Limitations Norberto abdi by: [facility] MIKEY E [place]( Apr 24 2012 [facility]) 0905 ------- ------- ------- ------- -- HTN OUTPATIENT [id number] Gladis HIGUERA, 05/14 Released w/o Camp Entered Limitations Norberto abdi by: [facility]ER Apr [facility]) 2011 0914 ------- ------- ------- ------- -- 5 day BP Check OUTPATIENT [id number] HTN KOTA, 06/02 Relea sed w/o Camp SPENCER M Limitations [facility]( Optomet ry Hadnot [address]ld[address]) OUTPATIENT [id number] Gladis HIGUERA, 06/14 Released w/o [place] Entered Limitations Norberto abdi by: [facility] Darlyn SANDOVAL [facility]( D May [facility]) 2011 0925 ------- ------- ------- ------- -- B/P FOLLOW UP WELL BLOOD TEST RESULT OUTPATIENT [id number] Gladis HIGUERA, 06/17 Released w/o [place] Entered Limitations Norberto abdi by: [facility] VIDYA Gaona [place]( May 25 2012 [facility]) 1307 ------- ------- ------- ------- -- F/U for BP OUTPATIENT [id number] SANDY, 07/08 Releas ed w/o Camp TOD JR Limitations [facility]( Hearing Conserv -B65) OUTPATIENT [id number] SANDY, 07/08 Releas ed w/o Camp TOD JR Limitations [facility]( Hearing Conserv -B65) OUTPATIENT [id number] ARA, 07/27 Released w/o Camp JODIE [facility]itations [facility] [id number] DAVIDA, 08/17 [facility]ased [facility] [place] [facility] [id number] Notes DAVIDA, 09/29 Released w/o Camp Entered Limitations Chavezjustin e by: [facility] DAVIDA Alegria [place]( R 13 Sep [facility]) 2012 1303 ------- ------- ------- ------- -- Medicat ion Refill OUTPATIENT [id number] Notes DAVIDA, 10/04 Released w/o Camp Entered Limitations Norberto abdi by: [facility] Noble [facility]( I 18 Sep [facility]) 2012 1320 ------- ------- ------- ------- -- Lab F/U SELF CARE Diagnos Zonia MOSS 10/25 [facility] MNGMENT [id number] is: SULAIMAN CNTRL TRAINING ICD-10- WSTRN CM [place] M25.511 SETS Pain in HCS right shoulde r
w ith Provide r Comment s: Pain in right Shoulde r Outpatient 93197-5.63 10/25 [facility] Encounter [id number] [facility] [place] [facility] 90271-8.63 10/26 [facility] Encounter [id number] /2021 [facility] [place] 80992-6.63 10/26 [facility] Encounter [id number] /2021 [facility] [address]-5.63 Diagnos MER,CHR 10/29 [facility] 45 MINUTES 1.34615595 is: IS CNTR L ICD-10- WSTRN CM [place] F43.10 SETS Post-tr HCS aumatic stress disorde r, unspeci fied
with Provide r Comment s: Posttra umatic stress disorde r (RUST [id number] 3) Outpatient 11866-6.63 Diagnos HOWARD STUART 10/29 [facility] Encounter 1.27795013 is: CNT RL ICD-10- WSTRN CM [place] F33.1 SETS Major HCS depress cristy disorde r, recurre nt, moderat e
w ith Provide r Comment s: Moderat brian severe recurre nt major depress ion (SCT [id number] 06) [place] [address]-9.63 Diagnos MER,CHR 11/05 [facility] 45 MINUTES [id number] is: CNTR L ICD-10- WSTRN CM [place] F43.10 SETS Post-tr HCS aumatic stress disorde r, unspeci fied
with Provide r Comment s: Posttra umatic stress disorde r (SCT [id number] 3) Outpatient 12129-6.63 11/08 [facility] Encounter [id number] /2021 [facility] [place] [facility] Out[facility] 77113-0.63 11/08 [facility] Encounter [id number] /2021 [facility] Outpatient 58306-7.63 11/08 [facility] Encounter [id number] /2021 [facility] [place] Outpatient 14685-4.63 Diagnos HOWARD STUART 11/12 [facility] Encounter [id number] is: CNT RL ICD-10- WSTRN CM [place] F33.1 SETS Major HCS depress cristy disorde r, recurre nt, moderat e
w ith Provide r Comment s: Moderat brian severe recurre nt major depress ion (SCT [id number] 06) PSYCH 12045-2.63 Diagnos KONDRATH,S 11/13 [facility] DIAGNOSTIC 1.93296018 is: USANNAH CN TRL EVALUATION ICD-10- ELISABETH WSTRN CM [place] F51.01 SETS Primary HCS insomni a
w ith Provide r Comment s: Primary Insomni a HC PRO 02699-2.63 Diagnos Zonia MOSS 11/15 V A PHONE CALL 1.87587640 is: SULAIMAN CNTR L 5-10 MIN ICD-10- WSTRN CM [place] M25.519 SETS Pain in HCS unspeci fied shoulde r
w ith Provide r Comment s: Pain in unspeci fied Shoulde r Outpatient 11/19 [facility] Encounter [id number] /2021 [facility] [place] [address]-7.63 Diagnos MER,CHR 11/26 [facility] 30 MINUTES 1.44731100 is: ISTIE CNTR L ICD-10- WSTRN CM [place] F43.10 SETS Post-tr HCS aumatic stress disorde r, unspeci fied
with Provide r Comment s: Posttra umatic stress disorde r (RUST [id number] 3) Outpatient 11/26 [facility] Encounter [id number] /2021 [facility] [place] Out[facility] 12/03 [facility] Encounter [id number] /2021 [facility] Out[facility] 12/03 [facility] Encounter [id number] [facility] [place] [address]-9 Diagnos MER,CHR 12/10 [facility] 45 MINUTES 1.12877011 is: IS CNTR L ICD-10- WSTRN CM [place] F43.10 SETS Post-tr HCS aumatic stress disorde r, unspeci fied
with Provide r Comment s: Posttra umatic stress disorde r (RUST [id number] 3) Outpatient Diagnos NARCISO,JA 12/13 [facility] Encounter [id number] is: CQUELYN CNT RL ICD-10- WSTRN CM [place] F33.1 SETS Major HCS depress cristy disorde r, recurre nt, moderat e
w ith Provide r Comment s: Moderat brian severe recurre nt major depress ion (SCT [id number] 06) [place] [address]-1.63 Diagnos MER,CHR 12/24 [facility] 45 MINUTES 1.56964002 is: ISTIE CNTR L ICD-10- WSTRN CM [place] F43.10 SETS Post-tr HCS aumatic stress disorde r, unspeci fied
with Provide r Comment s: Posttra umatic stress disorde r (RUST [id number] 3) Outpatient 47139-563 12/31 [facility] Encounter [id number] [facility] [place] HC PRO Diagnos MER,CHR 01/02 V A PHONE CALL 1.31420896 is: IS CNTR L 5-10 MIN ICD-10- WSTRN CM [place] F43.10 SETS Post-tr HCS aumatic stress disorde r, unspeci fied
with Provide r Comment s: Posttra umatic stress disorde r (RUST [id number] 3) HC PRO Diagnos LEXY,YOL 01/11 V A PHONE CALL 1.70294118 is: SIMRAN CNTR L 5-10 MIN ICD-10- WSTRN CM [place] Z71.89 SETS Other HCS specifi ed counselor education professor ing<br/ >with Provide r Comment s: Other specifi ed counselor education professor ing PSYTX W PT Diagnos MER,CHR 01/14 [facility] 45 MINUTES 1.29162841 is: CNTR L ICD-10- WSTRN CM [place] F43.10 SETS Post-tr HCS aumatic stress disorde r, unspeci fied
with Provide r Comment s: Posttra umatic stress disorde r (RUST [id number] 3) Outpatient 08490-701/24 [facility] Encounter [id number] [facility] [place] HC PRO Diagnos MER,CHR 01/25 V A PHONE CALL 1.39052672 is: IS CNTR L 5-10 MIN ICD-10- WSTRN CM [place] F43.10 SETS Post-tr HCS aumatic stress disorde r, unspeci fied
with Provide r Comment s: Posttra umatic stress disorde r (RUST [id number] 3) Outpatient 67686-002/04 [facility] Encounter [id number] [facility] [place] [facility] PSYTX W PT Diagnos MER,CHR 02/05 [facility] 45 MINUTES 1.84717504 is: ISTIE CNTR L ICD-10- WSTRN CM [place] F43.10 SETS Post-tr HCS aumatic stress disorde r, unspeci fied
with Provide r Comment s: Posttra umatic stress disorde r (SCT [id number] 3) Outpatient 02/18 [facility] Encounter [id number] /2021 [facility] [place] [facility] PSYTX W PT Diagnos MER,CHR 02/19 [facility] 45 MINUTES [id number] is: ISTIE CNTR L ICD-10- WSTRN CM [place] F43.10 SETS Post-tr HCS aumatic stress disorde r, unspeci fied
with Provide r Comment s: Posttra umatic stress disorde r (SCT [id number] 3) Outpatient Diagnos NARCISO,JA 02/21 [facility] Encounter [id number] is: CQUELYN CNT RL ICD-10- WSTRN CM [place] F43.10 SETS Post-tr HCS aumatic stress disorde r, unspeci fied
with Provide r Comment s: Posttra umatic stress disorde r (SCT [id number] 3) PSYTX W PT Diagnos MER,CHR 03/05 [place] 45 MINUTES 1.69006021 is: ISTIE CNTR L ICD-10- WSTRN CM [place] F43.10 SETS Post-tr HCS aumatic stress disorde r, unspeci fied
with Provide r Comment s: Posttra umatic stress disorde r (SCT [id number] 3) Outpatient 63759-803/15 [facility] Encounter [id number] [facility] Outpatient 22739-103/18 [facility] Encounter [id number] /2021 [facility] [place] [place] [address]-0.63 Diagnos MER,CHR 03/26 [place] 30 MINUTES 1.13627533 is: ISTIE CNTR L ICD-10- WSTRN CM [place] F43.10 SETS Post-tr HCS aumatic stress disorde r, unspeci fied
with Provide r Comment s: Posttra umatic stress disorde r (SCT [id number] 3) HC PRO 26362-5. Diagnos SHANT,MARAH 03/29 V A PHONE CALL 1.09204424 is: VICKY R CNT RL 21-30 MIN ICD-10- WSTRN CM [place] Z71.89 SETS Other HCS specifi ed counselor education professor ing<br/ >with Provide r Comment s: Other specifi ed counselor education professor ing HC PRO 05831-1. Diagnos VIKKIKARLO,KE 04/04 V A PHONE CALL 1.45328879 is: LLY CNTR L 5-10 MIN ICD-10- WSTRN CM [place] Z71.89 SETS Other HCS specifi ed counselor education professor ing<br/ >with Provide r Comment s: Other specifi ed counselor education professor ing HC PRO 00258-3. Diagnos JONATHON,JENNIFFER 04/08 V A PHONE CALL 1.68535464 is: NDA J CNTR L 5-10 MIN ICD-10- WSTRN CM [place] Z71.89 SETS Other HCS specifi ed counselor education professor ing<br/ >with Provide r Comment s: Other specifi ed counselor education professor ing OFFICE O/P 04129-5 Diagnos ALO,VERA 04/08 [place] EST 1.36087509 is: HLEEN CNTRL MINIMAL ICD-10- ANDREA WSTRN PROB CM R52 [place] Pain, SETS unspeci HCS fied
with Provide r Comment s: Pain, unspeci fied Outpatient 64972-8.63 04/08 [facility] Encounter [id number] /2021 [facility] [place] [facility] OFFICE O/P 56307-8.63 Diagnos JEFF,KEO 04/08 [place] EST LOW 1.97716327 is: YUNI THAKURH CNTR L 20-29 MIN ICD-10- WSTRN CM [place] G56.01 SETS Carpal HCS tunnel syndrom e, right upper limb
with Provide r Comment s: Carpal Tunnel Syndrom e, [place] [address]-0.63 Diagnos MER,[facility] 04/09 [place] 30 MINUTES 1.65560328 is: ISTIE CNTR L ICD-10- WSTRN CM [place] F43.10 SETS Post-tr HCS aumatic stress disorde r, unspeci fied
with Provide r Comment s: Posttra umatic stress disorde r (SCT [id number] 3) Outpatient 96947-0.63 04/17 [facility] Encounter [id number] [facility] Outpatient 52552-8.63 04/18 [facility] Encounter [id number] [facility] Outpatient 73668-5.63 04/22 [facility] Encounter [id number] [facility] Outpatient 03831-8.63 04/23 [facility] Encounter [id number] [facility] OT EVAL 13347-1.63 Diagnos MACHON,ROSALINDA 04/30 [place] LOW 1.38670205 is: LIE E CNTRL COMPLEX 30 ICD-10- WSTRN MIN CM [place] G56.00 SETS Carpal HCS tunnel syndrom e, unspeci fied upper limb
with Provide r Comment s: Carpal Tunnel Syndrom e, unspeci [place] [address]-5.63 Diagnos MER,[facility] 04/30 [place] 30 MINUTES 1.91245456 is: ISTIE CNTR L ICD-10- WSTRN CM [place] F43.10 SETS Post-tr HCS aumatic stress disorde r, unspeci fied
with Provide r Comment s: Posttra umatic stress disorde r (SCT [id number] 3) ADM 88393-963 Diagnos ZANVETTOR, 05/03 [facility] SARSCOV2 1.68180826 is: TAE /2020 CNTR L 100MCG/0.5 ICD-10- WSTRN ML1ST CM Z23 [place] Encount SETS er for HCS immuniz ation<b r/>with Provide r Comment s: Encount er for Immuniz ation Outpatient 24976-6.63 05/03 [facility] Encounter [id number] [facility] [place] Out[facility] 89786-6.63 Diagnos NARCISO,JA 05/23 [facility] Encounter [id number] is: CQUELYN CNT RL ICD-10- WSTRN CM [place] F43.10 SETS Post-tr HCS aumatic stress disorde r, unspeci fied
with Provide r Comment s: Posttra umatic stress disorde r (SCT [id number] 3) ADM Diagnos ANNA, 05/31 [place] SARSCOV2 1.38831192 is: TAE CNTR L 100MCG/0.5 ICD-10- WSTRN ML2ND CM Z23 [place] Encount SETS er for HCS immuniz ation<b r/>with Provide r Comment s: Encount [place] [address]-3.63 Diagnos MER,CHR 06/04 [facility] 45 MINUTES 1.29128594 is: ISTIE CNTR L ICD-10- WSTRN CM [place] F43.10 SETS Post-tr HCS aumatic stress disorde r, unspeci fied
with Provide r Comment s: Posttra umatic stress disorde r (SCT [id number] 3) Outpatient 07576-1.63 06/16 [facility] Encounter [id number] /2021 [facility] [place] Outpatient 86899-9.63 06/18 [facility] Encounter [id number] /2021 [facility] [address]-1.63 Diagnos MER,CHR 06/18 [place] 30 MINUTES 1.02873547 is: ISTIE CNTR L ICD-10- WSTRN CM [place] F43.10 SETS Post-tr HCS aumatic stress disorde r, unspeci fied
with Provide r Comment s: Posttra umatic stress disorde r (RUST [id number] 3) Outpatient 41834-763 06/19 [facility] Encounter [id number] /2021 [facility] [place] PSYTX W PT Diagnos MER,CHR 07/02 [place] 45 MINUTES 1.45910634 is: IS CNTR L ICD-10- WSTRN CM [place] F43.10 SETS Post-tr HCS aumatic stress disorde r, unspeci fied
with Provide r Comment s: Posttra umatic stress disorde r (RUST [id number] 3) HC PRO Diagnos MER,CHR 07/03 V A PHONE CALL 1.24368256 is: CNTR L 11-20 MIN ICD-10- WSTRN CM [place] F43.10 SETS Post-tr HCS aumatic stress disorde r, unspeci fied
with Provide r Comment s: Posttra umatic stress disorde r (RUST [id number] 3) Outpatient 47442-863 07/03 [facility] Encounter [id number] /2021 [facility] [place] [facility] Outpatient Diagnos NARCISOJA 07/04 [facility] Encounter [id number] is: CQUELYN CNT RL ICD-10- WSTRN CM [place] F43.10 SETS Post-tr HCS aumatic stress disorde r, unspeci fied
with Provide r Comment s: Posttra umatic stress disorde r (RUST [id number] 3) Outpatient 95803-563 07/09 [facility] Encounter [id number] /2021 [facility] [place] [facility] DETERMINE Diagnos OSHINSKIE, 07/11 [facility] REFRACTIVE 1.39379586 is: SUNDEEP Sanchez CNTRL STATE ICD-10- WSTRN CM [place] H40.053 SETS Ocular HCS hyperte nsion, bilater al
with Provide r Comment s: Ocular Hyperte nsion, Bilater al HC PRO Diagnos MER,[facility] 07/16 V A PHONE CALL 1.05210769 is: CNTR L 11-20 MIN ICD-10- WSTRN CM [place] F43.10 SETS Post-tr HCS aumatic stress disorde r, unspeci fied
with Provide r Comment s: Posttra umatic stress disorde r (SCT [id number] 3) Outpatient Diagnos HOWARD STUART 07/18 [facility] Encounter [id number] is: CQ CNT RL ICD-10- WSTRN CM [place] F43.10 SETS Post-tr HCS aumatic stress disorde r, unspeci fied
with Provide r Comment s: Posttra umatic stress disorde r (SCT [id number] 3) Outpatient 55796-763 07/24 [facility] Encounter [id number] /2022 [facility] [place] [facility] PSYTX W PT Diagnos BI GARCIA 07/25 [facility] W E/M 30 1.51392379 is: T O CNTRL MIN ICD-10- WSTRN CM [place] F43.10 SETS Post-tr HCS aumatic stress disorde r, unspeci fied
with Provide r Comment s: Posttra umatic stress disorde r (SCT [id number] 3) Outpatient HOWARD Morrison 07/30 [facility] Encounter [id number] is: CNT RL ICD-10- WSTRN CM [place] F43.10 SETS Post-tr HCS aumatic stress disorde r, unspeci fied
with Provide r Comment s: Posttra umatic stress disorde r (SCT [id number] 3) HC PRO 31609-0 Diagnos MER,[facility] 08/01 V A PHONE CALL 1.32173020 is: CNTR L 5-10 MIN ICD-10- WSTRN CM [place] F43.10 SETS Post-tr HCS aumatic stress disorde r, unspeci fied
with Provide r Comment s: Posttra umatic stress disorde r (SCT [id number] 3) OFFICE O/P Diagnos SHEBA,W 08/07 [facility] EST MOD 1.16480510 is: JOE J CNTR L 30-39 MIN ICD-10- WSTRN CM [place] M25.519 SETS Pain in HCS unspeci fied shoulde r
w ith Provide r Comment s: Bilater al shoulde r joint pain (RUST [id number]) INTRAORAL Diagnos STEVEN DE LEON 08/13 [place] PERIAPICAL 1.43465998 is: AM CNTR L FIRST ICD-10- WSTRN CM [place] K02.62 SETS Dental HCS caries on smooth surface penetra ting into dentin< br/>wit h Provide r Comment s: Dental caries on smooth surface penetra ting into dentin HC PRO Diagnos TODD BESS 08/16 V A PHONE CALL 1.44770540 is: LLY CNTR L 5-10 MIN ICD-10- WSTRN CM [place] Z71.89 SETS Other HCS specifi ed counselor education professor ing<br/ >with Provide r Comment s: Other specifi ed counselor education professor ing Outpatient Diagnos HOWARD STUART 08/19 [facility] Encounter [id number] is: CQUELYN CNT RL ICD-10- WSTRN CM [place] F43.10 SETS Post-tr HCS aumatic stress disorde r, unspeci fied
with Provide r Comment s: Posttra umatic stress disorde r (RUST [id number] 3) Outpatient 39464-3.08/28 [facility] Encounter [id number] /2022 [facility] [place] [facility] VISUAL Diagnos HOSSEIN 08/28 V A FIELD 1.07031438 is: SUNDEEP J CNTRL EXAMINATIO ICD-10- WSTRN N(S) CM [place] H40.013 SETS Open HCS angle with borderl ine finding s, low risk, bilater al
with Provide r Comment s: [place] a Suspect ,Low Risk,Bi lateral EYE EXAM Diagnos OSPITA, 08/28 [place] ESTABLISH 1.19308927 is: SUNDEEP Sacnhez C NTRL PATIENT ICD-10- WSTRN CM [place] H40.013 SETS Open HCS angle with borderl ine finding s, low risk, bilater al
with Provide r Comment s: Open Angle with Borderl ine Finding s, low Risk, Bilater al CMPTR 14144-0.63 Diagnos HOSSEIN, 08/28 [facility] OPHTH IMG 1.70655740 is: SUNDEEP Sanchez C NTRL OPTIC ICD-10- WSTRN NERVE CM [place] H40.013 SETS Open HCS angle with borderl ine finding s, low risk, bilater al
with Provide r Comment s: [place] a Suspect ,Low Risk,[place] [address]-8.63 Diagnos MER,CHR 09/03 [place] 45 MINUTES 1.07045224 is: ISTIE CNTR L ICD-10- WSTRN CM [place] F43.10 SETS Post-tr HCS aumatic stress disorde r, unspeci fied
with Provide r Comment s: Posttra umatic stress disorde r (SCT [id number] 3) Outpatient 87114-2.63 09/04 [facility] Encounter 1. [facility] [place] [facility] HC PRO 01352-5.63 Diagnos BONNIE BRANL 09/04 V A PHONE CALL 1.56653484 is: VICKY R /2021 CNT RL 5-10 MIN ICD-10- WSTRN CM [place] Z71.89 SETS Other HCS specifi ed counselor education professor ing<br/ >with Provide r Comment s: Other specifi ed counselor education professor ing Outpatient 63851-9.63 09/06 [facility] Encounter 1. [facility] [place] [facility] Outpatient 44310-7.63 09/06 [facility] Encounter 1. [facility] [place] [facility] Outpatient 63102-3.63 Diagnos HOWARD STUART 09/16 [facility] Encounter [id number] is: CQUELYN CNT RL ICD-10- WSTRN CM [place] F43.10 SETS Post-tr HCS aumatic stress disorde r, unspeci fied
with Provide r Comment s: Posttra umatic stress disorde r (SCT [id number] 3) [place] [address]-4.63 Diagnos MER,CHR 09/17 [facility] 45 MINUTES 1.87859045 is: IS CNTR L ICD-10- WSTRN CM [place] F43.10 SETS Post-tr HCS aumatic stress disorde r, unspeci fied
with Provide r Comment s: Posttra umatic stress disorde r (SCT [id number] 3) CASE Diagnos JOSE BOOTHE 09/24 [facility] MGMT-ORAL 1.98920814 is: CNTRL HEALTH LIT ICD-10- WSTRN CM [place] K08.531 SETS Fractur HCS ed dental restora tive materia l with loss of materia l
w ith Provide r Comment s: Fractur ed dental restora tive materia l [place] [address]-6.63 Diagnos MER,CHR 09/25 [place] 30 MINUTES 1.34051761 is: CNTR L ICD-10- WSTRN CM [place] F43.10 SETS Post-tr HCS aumatic stress disorde r, unspeci fied
with Provide r Comment s: Posttra umatic stress disorde r (SCT [id number] 3) [facility] Diagnos RILEY VALERA 09/25 [facility] INSTITUTIONAL RESEARCH DIRECTOR 1.60079295 is: MARKUS CNTRL ASSESSMENT ICD-10- WSTRN CM [place] Z71.81 SETS Spiritu HCS al or religio us counselor education professor ing<br/ >with Provide r Comment s: Spiritu al or Religio us Dumper Bulk System ing [facility] Diagnos RILEY VALERA 09/26 [place] INSTITUTIONAL RESEARCH DIRECTOR 1.97914994 is: MARKUS CNTRL PARK RECREATION MANAGER ICD-10- WSTRN INDIVIDU CM [place] Z71.81 SETS Spiritu HCS al or religio us counselor education professor ing<br/ >with Provide r Comment s: Spiritu al or Religio us Dumper Bulk System ing Outpatient 09/26 [facility] Encounter [id number] /2022 [facility] [place] [facility] Outpatient 23790-809/30 [facility] Encounter [id number] /2022 [facility] [place] [address]-6.63 Diagnos DAVID JOSE 10/01 [place] 45 MINUTES 1.64792654 is: A CNTR L ICD-10- WSTRN CM [place] F43.10 SETS Post-tr HCS aumatic stress disorde r, unspeci fied
with Provide r Comment s: Posttra umatic stress disorde r (SCT [id number] 3) Outpatient 10/02 [facility] Encounter 1. [facility] [place] GROUP Diagnos DAVID JOSE 10/02 [facility] PSYCHOTHER 1.21213705 is: A CNTR L APY ICD-10- WSTRN CM [place] F43.10 SETS Post-tr HCS aumatic stress disorde r, unspeci fied
with Provide r Comment s: Post-tr aumatic stress disorde r, unspeci fied (ICD-10 -CM F43.10) [place] [address]-4.63 Diagnos MER,CHR 10/04 [facility] 45 MINUTES 1.47921812 is: IS CNTR L ICD-10- WSTRN CM [place] F43.10 SETS Post-tr HCS aumatic stress disorde r, unspeci fied
with Provide r Comment s: Posttra umatic stress disorde r (SCT [id number] 3) [facility] Diagnos MISHEL VALERAA 10/07 [facility] INSTITUTIONAL RESEARCH DIRECTOR 1.03678710 is: MARKUS CNTRL PARK RECREATION MANAGER ICD-10- WSTRN INDIVIDU CM [place] Z71.81 SETS Spiritu HCS al or religio us counselor education professor ing<br/ >with Provide r Comment s: Spiritu al or Religio us Dumper Bulk System ing Outpatient Diagnos HOWARD STUART 10/07 [place] Encounter 1.70803032 is: CQUELYN CNT RL ICD-10- WSTRN CM [place] F33.1 SETS Major HCS depress cristy disorde r, recurre nt, moderat e
w ith Provide r Comment s: Moderat brian severe recurre nt major depress ion (SCT [id number] 06) [place] [address]-0.63 Diagnos MER,CHR 10/08 [place] 45 MINUTES 1.02485652 is: ISTIE CNTR L ICD-10- WSTRN CM [place] F43.10 SETS Post-tr HCS aumatic stress disorde r, unspeci fied
with Provide r Comment s: Posttra umatic stress disorde r (SCT [id number] 3) GROUP 27219-8.63 Diagnos DAVID JOSE 10/09 [place] PSYCHOTHER 1.89027205 is: A CNTR L APY ICD-10- WSTRN CM [place] F43.10 SETS Post-tr HCS aumatic stress disorde r, unspeci fied
with Provide r Comment s: Post-tr aumatic stress disorde r, unspeci fied (ICD-10 -CM F43.10) INTRAORAL Diagnos ARAMIS, 10/15 [place] PERI[facility]ICAL [id number] is: VINCENT CN TRL FIRST ICD-10- WSTRN CM [place] K08.9 SETS Disorde HCS r of teeth and support ing structu res, unspeci fied
with Provide r Comment s: Disorde r of teeth and support ing structu res, unspeci fied GROUP [id number] Diagnos DAVID JOSE 10/16 [facility] [id number] is: CNTR L APY ICD-10- WSTRN CM [place] F43.10 SETS Post-tr HCS aumatic stress disorde r, unspeci fied
with Provide r Comment s: Post-tr aumatic stress disorde r, unspeci fied (ICD-10 -CM F43.10) [place] [address]-2.63 Diagnos MER,CHR 10/18 [facility] 45 MINUTES [id number] is: ISTIE CNTR L ICD-10- WSTRN CM [place] F43.10 SETS Post-tr HCS aumatic stress disorde r, unspeci fied
with Provide r Comment s: Posttra umatic stress disorde r (SCT [id number] 3) Outpatient [id number] 10/23 [facility] [id number] /2022 [facility] GROUP 26560-8.63 Diagnos DAMON,DAVID 10/30 [facility] [id number] is: A CNTR L APY ICD-10- WSTRN CM [place] F43.10 SETS Post-tr HCS aumatic stress disorde r, unspeci fied
with Provide r Comment s: Post-tr aumatic stress disorde r, unspeci fied (ICD-10 -CM F43.10) Outpatient [id number] 11/06 [facility] [id number] /[facility] 35948-0.63 Diagnos NARCISO,JA 11/12 [facility] [id number] is: CQUELYN CNT RL ICD-10- WSTRN CM [place] F33.1 SETS Major HCS depress cristy disorde r, recurre nt, moderat e
w ith Provide r Comment s: Moderat brian severe recurre nt major depress ion (SCT [id number] 06) Outpatient 25686-6.63 11/12 [facility] [id number] /[facility] 32003-9.63 11[facility]13 [facility] [id number] [facility] 73401-6.63 12/06 [facility] [id number] [facility] [place] [address]-2.63 Diagnos MER,CHR 12/12 [facility] 30 MINUTES [id number] is: ISTIE CNTR L ICD-10- WSTRN CM [place] F43.10 SETS Post-tr HCS aumatic stress disorde r, unspeci fied
with Provide r Comment s: Posttra umatic stress disorde r (SCT [id number] 3) Outpatient [id number] Diagnos NARCISO,JA 12/19 [facility] [id number] is: CQUELYN CNT RL ICD-10- WSTRN CM [place] F43.10 SETS Post-tr HCS aumatic stress disorde r, unspeci fied
with Provide r Comment s: Posttra umatic stress disorde r (SCT [id number] 3) [place] [address]-2.63 Diagnos MER,CHR 12/20 [place] 30 MINUTES [id number] is: ISTIE CNTR L ICD-10- WSTRN CM [place] F43.10 SETS Post-tr HCS aumatic stress disorde r, unspeci fied
with Provide r Comment s: Posttra umatic stress disorde r (SCT [id number] 3) HC PRO Diagnos MER,CHR 12/26 V A PHONE CALL [id number] is: IS CNTR L 5-10 MIN ICD-10- WSTRN CM [place] F43.10 SETS Post-tr HCS aumatic stress disorde r, unspeci fied
with Provide r Comment s: Posttra umatic stress disorde r (SCT [id number] 3) [place] [address]-9.63 Diagnos MER,CHR 01/02 [place] 30 MINUTES [id number] is: IS CNTR L ICD-10- WSTRN CM [place] F43.10 SETS Post-tr HCS aumatic stress disorde r, unspeci fied
with Provide r Comment s: Posttra umatic stress disorde r (SCT [id number] 3) Outpatient MER,CHR 01/07 [facility] Encounter [id number] [facility] [place] [facility] HC PRO 05378-9.63 Diagnos MER,CHR 01/09 V A PHONE CALL [id number] is: IS CNTR L 5-10 MIN ICD-10- WSTRN CM [place] F43.10 SETS Post-tr HCS aumatic stress disorde r, unspeci fied
with Provide r Comment s: Posttra umatic stress disorde r (SCT [id number] 3) Outpatient 22288-6.63 Diagnos NARCISOHOWARD 01/23 [facility] Encounter [id number] is: CQUEL CNT RL ICD-10- WSTRN CM [place] F43.10 SETS Post-tr HCS aumatic stress disorde r, unspeci fied
with Provide r Comment s: Posttra umatic stress disorde r (SCT [id number] 3) Outpatient 05147-1.63 01/29 [facility] Encounter 1. [facility] [place] [facility] Out[facility] 84537-7.63 01/30 [facility] Encounter [id number] [facility] [place] [facility] 96850-3.63 01/30 [facility] Encounter 1. [facility] [place] [facility] Out[facility] 50442-3.63 01/30 [facility] Encounter 1. [facility] [place] [facility] OFFICE O/P 05320-2.63 Diagnos MISBAH ROSS 01/30 [facility] EST [id number] is: MOTHY E CNTRL MINIMAL ICD-10- WSTRN PROB CM I10 [place] Essenti SETS al HCS (primar y) hyperte nsion<b r/>with Provide r Comment s: Hyperte nsion ELECTROCAR 74218-0.68 Diagnos LUCIAN,UZMA 01/30 CONNECT DIOGRAM [id number] is: A ICUT REPORT ICD-10- HCS CM Z13.6 Encount er for screeni ng for cardiov ascular disorde rs
with Provide r Comment s: Encount er for Screeni ng for Cardiov ascular Disorde rs Outpatient 96845-4.63 01/30 [facility] Encounter [id number] /2022 [facility] [place] [facility] OFF[facility] O/P 41358-7.63 Diagnos YURIDIA HAGAN 01/30 [facility] EST MOD [id number] is: JED CNTRL 30-39 MIN ICD-10- WSTRN CM [place] S20.461 SETS A HCS Insect bite (nonven omous) of right back wall of thorax, init
with Provide r Comment s: Insect Bite (Nonven omous) of right Back Wall of Thorax, Initial Encount er Outpatient 82724-0.63 01/30 [facility] Encounter [id number] /2022 [facility] [place] [facility] Out[facility] 59323-8.63 01/30 [facility] Encounter [id number] /2022 [facility] [place] Out[facility] 86947-3.63 02/03 [facility] Encounter [id number] /2022 [facility] [place] Out[facility] 98489-5.63 02/03 [facility] Encounter [id number] /2022 [facility] [place] Out[facility] 06816-5.63 CASSY, 02/04 [facility] Encounter [id number] [facility] RL [facility] [place] [facility] Outpatient 91264-6.63 02/04 [facility] Encounter [id number] [facility] [place] [facility] INTRAORAL 40179-1.63 Diagnos STEVEN DE LEON 02/04 [facility] PERIAPICAL [id number] is: CNTR L EA ADD ICD-10- WSTRN CM [place] K08.89 SETS Other HCS specifi ed disorde rs of teeth and support ing structu res<br/ >with Provide r Comment s: Other specifi ed disorde rs of teeth [place] [address]-0.63 Diagnos MER,CHR 02/06 [place] 30 MINUTES [id number] is: CNTR L ICD-10- WSTRN CM [place] F43.10 SETS Post-tr HCS aumatic stress disorde r, unspeci fied
with Provide r Comment s: Posttra umatic stress disorde r (SCT [id number] 3) OFFICE O/P 16929-5.63 Diagnos SCRUGGS,W 02/07 [facility] EST LOW [id number] is: JOE Sanchez /2021 CNTR L 20-29 MIN ICD-10- WSTRN CM R21 [place] Rash SETS and HCS other nonspec ific skin eruptio n
w ith Provide r Comment s: Pruriti c rash (SNOMED CT [id number] 2) Outpatient 08496-4.63 02/10 [facility] Encounter [id number] /2022 [facility] [place] [facility] Outpatient 17856-4.63 02/10 [facility] Encounter [id number] /2022 [facility] [place] [facility] OFFICE O/P 57052-963 Diagnos ORINOR, 02/10 [place] EST [id number] is: TAE CNTRL MINIMAL ICD-10- WSTRN PROB CM [place] Z71.9 SETS [facility] HCS ing, unspeci fied
with Provide r Comment s: [employer] ing,Uns pec OFFICE O/P Diagnos HAGAN,EL 02/10 [place] EST LOW [id number] is: JED CNTRL 20-29 MIN ICD-10- WSTRN CM R21 [place] Rash SETS and HCS other nonspec ific skin eruptio n
w ith Provide r Comment s: Rash and other Nonspec ific Skin Eruptio n Outpatient 32626-1.63 02/11 [facility] Encounter [id number] /2022 [facility] [place] [facility] Outpatient 19207-9.63 02/11 [facility] Encounter [id number] /2022 [facility] [place] [address]-563 Diagnos MER,CHR 02/12 [place] 45 MINUTES [id number] is: IS CNTR L ICD-10- WSTRN CM [place] F43.10 SETS Post-tr HCS aumatic stress disorde r, unspeci fied
with Provide r Comment s: Posttra umatic stress disorde r (SCT [id number] 3) [facility]/ 14057-0 Diagnos JGLI 02/14 [place] WORK [id number] is: ND CNTRL REINTEGRAT ICD-10- WSTRN ION CM [place] Z56.0 SETS Unemplo HCS yment, unspeci fied
with Provide r Comment s: Unemplo yment, unspeci fied [facility]/ Diagnos JOSE GREGORIO 02/25 [place] WORK [id number] is: ND CNTRL REINTEGRAT ICD-10- WSTRN ION CM [place] Z56.0 SETS Unemplo HCS yment, unspeci fied
with Provide r Comment s: Unemplo yment, unspeci fied [facility]/ Diagnos JOSE GREGORIO 02/26 [place] WORK [id number] is: CNTRL REINTEGRAT ICD-10- WSTRN ION CM [place] Z56.0 SETS Unemplo HCS yment, unspeci fied
with Provide r Comment s: Unemplo yment, unspeci fied [facility] 75742-702/27 [place] Encounter [id number] /2022 [facility] [place] [facility]/ 10654-0.63 Diagnos JOSE GREGORIO 03/04 [place] WORK [id number] is: CNTRL REINTEGRAT ICD-10- WSTRN ION CM [place] Z56.0 SETS Unemplo HCS yment, unspeci fied
with Provide r Comment s: Unemplo yment, unspeci fied OFFICE O/P Diagnos HOWARD STUART 03/17 [place] EST SF [id number] is: CQUELYN CNTRL 10-19 MIN ICD-10- WSTRN CM [place] F43.10 SETS Post-tr HCS aumatic stress disorde r, unspeci fied
with Provide r Comment s: Posttra umatic stress disorde r (RUST [id number] 3) [facility]/ Diagnos JOSE GREGORIO 03/18 [place] WORK [id number] is: ND CNTRL REINTEGRAT ICD-10- WSTRN ION CM [place] Z56.0 SETS Unemplo HCS yment, unspeci fied
with Provide r Comment s: Unemplo yment, [place] [address]-8.63 Diagnos MER,CHR 03/28 [place] 45 MINUTES [id number] is: IS CNTR L ICD-10- WSTRN CM [place] F43.10 SETS Post-tr HCS aumatic stress disorde r, unspeci fied
with Provide r Comment s: Posttra umatic stress disorde r (RUST [id number] 3) Outpatient 02467-6.63 03/28 [facility] Encounter [id number] /2022 [facility] [place] [facility] SUPP MAINT 08274-4 Diagnos CANDMELLI 04/01 [place], 15 [id number] is: NDA CNTR L MIN ICD-10- WSTRN CM [place] Z56.9 SETS Unspeci HCS fied problem s related to employm ent<br/ >with Provide r Comment s: Unspeci fied Problem s Related to Employm ent Outpatient 89085-8.63 04/16 [place] Encounter [id number] /2022 [facility] [place] [facility] DENTAL 54836-4 Diagnos HOHREITER, 04/17 V A PANORAMIC [id number] is: VINC CNT RL IMAGE ICD-10- WSTRN CM [place] K08.9 SETS Disorde HCS r of teeth and support ing structu res, unspeci fied
with Provide r Comment s: Disorde r of teeth and support ing structu res, [place] [address]-0.63 Diagnos MER,CHR 04/25 [place] 45 MINUTES [id number] is: CNTR L ICD-10- WSTRN CM [place] F43.10 SETS Post-tr HCS aumatic stress disorde r, unspeci fied
with Provide r Comment s: Posttra umatic stress disorde r (RUST [id number] 3) Procedures Combined list of: 1) Procedures from Department of Veterans Affairs facilities going back up to the last 18 months, not all VA non-surgical procedures are included; 2) All procedures from the Department of Defense facilities. Procedure Procedure Type Code Date Perfomer Comments Sourabisai e Patient education, not [facility] otherwise cla ified, 013 JODIE non-physician JENNIFER provider, group, per se ion Audiogram (Screening) Audiogram 57778 [facility] (Screening) 013 JODIE RODRIGUEZ Audiogram (Screening) Audiogram 97205 [facility] (Screening) 012 TOD NORRIS Patient education, not [facility] otherwise cla ified, 012 TOD NORRIS non-physician provider, group, per se ion Psychotherapy [facility] Individual 012 ONEAL Approximately 45 [place] [address] [facility] Refractive State Refractive State 012 SPENCER [place] [address] [facility], [facility] Patient Start Patient Start 012 SPENCER Brar Comprehensive Care Comprehensive Care Psychotherapy [facility] Individual 012 ONEAL Approximately 45 YANIQUE Minutes Psychotherapy [facility] Individual 012 ONEAL Approximately 75-80 YANIQUE Minutes Psychotherapy [facility], [facility] Individual 012 ONEAL Approximately 45 YANIQUE Minutes Patient education, not [facility] otherwise cla ified, 012 JENNY CASILLAS non-physician provider, group, per se ion Audiogram (Screening) Audiogram 44450 [facility] (Screening) 012 JENNY CASILLAS Psychotherapy [facility], [facility] Individual 012 ONEAL Approximately 75-80 YANIQUE Minutes Psychotherapy [facility], [facility] Individual 012 ONEAL Approximately 45 YANIQUE Minutes Childbirth [facility], [facility] preparation/Lamaze leyda 012 DONNA Logan es, non-physician provider, per se ion Psychotherapy [facility], [facility] Individual 012 ONEAL Approximately 45 YANIQUE Minutes Childbirth MIKHAIL, [facility] preparation/Lamaze cla 012 DONNA R es, non-physician provider, per se ion Psychotherapy [facility], [facility] Individual 012 ONEAL Approximately 45 YANIQUE Minutes Psychotherapy [facility], [facility] Individual 012 ONEAL Approximately 45 YANIQUE Minutes Psychiatric Diagnostic [facility] Evaluation 012 ONEAL Comprehensive YANIQUE Examination Modalities Heat Hot Modalities Heat Hot 36367 PATRICIA, DoD Packs Packs 011 FABIOLA R Physical Medicine - Physical Medicine - 96470 PATRICIA, [facility] Group Physical Therapy Group Physical 011 FABIOLA R Se ion Therapy Session A isted Exercises For Assisted Exercises 42785 PATRICIA, DoD ROM For ROM 011 FABIOLA R A isted Exercises For Assisted Exercises 13676 PATRICIA, DoD ROM For ROM 011 FABIOLA R Physical Medicine - Physical Medicine - 32576 PATRICIA, [facility] Group Physical Therapy Group Physical 011 FABIOLA R Se ion Therapy Session Modalities Heat Hot Modalities Heat Hot 55957 PATRICIA, DoD Packs Packs 011 FABIOLA R Modalities Heat Hot Modalities Heat Hot 47096 PATRICIA, DoD Packs Packs 011 FABIOLA R Physical Medicine - Physical Medicine - 42258 PATRICIA, [facility] Group Physical Therapy Group Physical 011 FABIOLA R Se ion Therapy Session A isted Exercises For Assisted Exercises 05715 PATRICIA, DoD ROM For ROM 011 FABIOLA R Psychometric [facility] Neuropsych Testing 011 DALLIS M Battery Admin By Computer Psychiatric Diagnostic VISH SANDERS [facility] Evaluation 011 [place] Comprehensive Examination [place] [address] [facility] Visual Acuity, Visual Acuity, 009 DEDE A Quantitative, Quantitative, Bilateral Bilateral Audiometry Group Audiometry Group [address] [facility] Testing Testing 009 MARJAN C IMMUNIZATION DoD ADMINISTRATION BY 009 INTRANASAL OR ORAL ROUTE; 1 VACCINE (SINGLE OR COMBINATION VACCINE/TOXOID) IMMUNIZATION [facility] ADMINISTRATION 009 (INCLUDES PERCUTANEOUS, INTRADERMAL, SUBCUTANEOUS, OR INTRAMUSCULAR INJECTIONS); EACH ADDITIONAL VACCINE (SINGLE OR COMBINATION VACCINE/TOXOID) SKIN TEST; [facility] TUBERCULOSIS, 009 INTRADERMAL AUDIOMETRIC TESTING OF DoD GROUPS 009 SCREENING TEST OF Do D VISUAL ACUITY, 009 QUANTITATIVE, BILATERAL PATIENT EDUCATION, NOT DoD OTHERWISE CLASSIFIED, 013 NON-PHYSICIAN PROVIDER, GROUP, PER SESSION SCREENING TEST, PURE 12/20/2 DoD TONE, AIR ONLY 012 PATIENT EDUCATION, NOT DoD OTHERWISE CLASSIFIED, 012 NON-PHYSICIAN PROVIDER, GROUP, PER SESSION INDIVIDUAL DoD PSYCHOTHERAPY, INSIGHT 012 ORIENTED, BEHAVIOR MODIFYING AND/OR SUPPORTIVE, IN AN OFFICE OR OUTPATIENT FACILITY, APPROXIMATELY 45 TO 50 MINUTES [id number] WITH THE PATIENT DETERMINATION OF DoD REFRACTIVE STATE 012 INDIVIDUAL DoD PSYCHOTHERAPY, INSIGHT 012 ORIENTED, BEHAVIOR MODIFYING AND/OR SUPPORTIVE, IN AN OFFICE OR OUTPATIENT FACILITY, APPROXIMATELY 45 TO 50 MINUTES [id number] WITH THE PATIENT INDIVIDUAL DoD PSYCHOTHERAPY, INSIGHT 012 ORIENTED, BEHAVIOR MODIFYING AND/OR SUPPORTIVE, IN AN OFFICE OR OUTPATIENT FACILITY, APPROXIMATELY 75 TO 80 MINUTES [id number] WITH THE PATIENT INDIVIDUAL DoD PSYCHOTHERAPY, INSIGHT 012 ORIENTED, BEHAVIOR MODIFYING AND/OR SUPPORTIVE, IN AN OFFICE OR OUTPATIENT FACILITY, APPROXIMATELY 45 TO 50 MINUTES [id number] WITH THE PATIENT PATIENT EDUCATION, NOT DoD OTHERWISE CLASSIFIED, 012 NON-PHYSICIAN PROVIDER, GROUP, PER SESSION INDIVIDUAL DoD PSYCHOTHERAPY, INSIGHT 012 ORIENTED, BEHAVIOR MODIFYING AND/OR SUPPORTIVE, IN AN OFFICE OR OUTPATIENT FACILITY, APPROXIMATELY 75 TO 80 MINUTES [id number] WITH THE PATIENT INDIVIDUAL DoD PSYCHOTHERAPY, INSIGHT 012 ORIENTED, BEHAVIOR MODIFYING AND/OR SUPPORTIVE, IN AN OFFICE OR OUTPATIENT FACILITY, APPROXIMATELY 45 TO 50 MINUTES [id number] WITH THE PATIENT CHILDBIRTH DoD PREPARATION/LAMAZE 012 CLASSES, NON-PHYSICIAN PROVIDER, PER SESSION INDIVIDUAL DoD PSYCHOTHERAPY, INSIGHT 012 ORIENTED, BEHAVIOR MODIFYING AND/OR SUPPORTIVE, IN AN OFFICE OR OUTPATIENT FACILITY, APPROXIMATELY 45 TO 50 MINUTES [id number] WITH THE PATIENT CHILDBIRTH DoD PREPARATION/LAMAZE 012 CLASSES, NON-PHYSICIAN PROVIDER, PER SESSION INDIVIDUAL DoD PSYCHOTHERAPY, INSIGHT 012 ORIENTED, BEHAVIOR MODIFYING AND/OR SUPPORTIVE, IN AN OFFICE OR OUTPATIENT FACILITY, APPROXIMATELY 45 TO 50 MINUTES [id number]-[id number] WITH THE PATIENT INDIVIDUAL DoD PSYCHOTHERAPY, INSIGHT 012 ORIENTED, BEHAVIOR MODIFYING AND/OR SUPPORTIVE, IN AN OFFICE OR OUTPATIENT FACILITY, APPROXIMATELY 45 TO 50 MINUTES [id number] WITH THE PATIENT HANDLING AND/OR DoD CONVEYANCE OF SPECIMEN 012 FOR TRANSFER FROM THE PATIENT IN OTHER THAN AN OFFICE TO A LABORATORY (DISTANCE MAY BE INDICATED) PSYCHIATRIC DIAGNOSTIC DoD INTERVIEW EXAMINATION 012 APPLICATION OF A DoD MODALITY TO 1 OR MORE 011 AREAS; HOT OR COLD PACKS THERAPEUTIC PROCEDURE, DoD 1 OR MORE AREAS, EACH 011 15 MINUTES; THERAPEUTIC EXERCISES TO DEVELOP STRENGTH AND ENDURANCE, RANGE OF MOTION AND FLEXIBILITY APPLICATION OF A DoD MODALITY TO 1 OR MORE 011 AREAS; HOT OR COLD PACKS NEUROPSYCHOLOGICAL D oD TESTING (EG, Buccaneer CARD SORTING TEST), ADMINISTERED BY A COMPUTER, WITH QUALIFIED HEALTH COMMISSARY MANAGER INTERPRETATION AND REPORT PSYCHIATRIC DIAGNOSTIC DoD INTERVIEW EXAMINATION 011 Social History Combined list of available smoking, tobacco, and other social history from Department of Defense 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 Social History Type Response Date Comment Source Tobacco smoking [facility] History of tobacco [place]-TOBACCO NEVER USED 05/21/2020 [facility] use History of tobacco [place] NEVER USED 03/02/2019 [facility] use History of tobacco [place]-TOBACCO NEVER USED 06/07/2018 [facility] use History of tobacco LIFETIME NON-TOBACCO 01/21/2017 [facility] [place] use USER History of tobacco LIFETIME NON-TOBACCO 10/09/2015 [facility] [place] use USER History of tobacco LIFETIME NON-TOBACCO 05/10/2013 [facility] [place] use USER This section is an [facility] empty social history section. Plan of Care List of future care activities from Department of Veterans Affairs facilities. Additional future care activities may be listed in the Assessment and Plan section. Date/Time Care Activity Care Activity Detail Facility 04/25/2022 AMBULATORY - PSYCHIATRY AMBULATORY - PSYCHIATRY [facility]
--- OUTSIDE RECORDS SUMMARY | 2022-04-25 18:46 | XMS_ITS | Encounter Summary ---
:1990 Author Organization [facility] rs Address [address] [place] [address] Support Name Relationship Address Phone TETE TRAN Unavailable [address] [place] [address] THOMAS MONTOYA Unavailable [address] [place] [address] Insurance Providers: All historical and current Section [...] Telephone Name to Policy Number [facility] Aug 03, [id number] [phone] ALIAROSINA Mane PATIENT BEE GIMENEZ [id number] STEPHANIE JOHNSON [facility] DEPT Selected Encounter This section includes the information on record at [facility] for the Encounter. Date/Time Encounter Type Encounter Reason Provider Source Description Apr 25, 2022 PSYTX W PT 45 MENTAL HEALTH ICD-10-CM F43.10 MER,CHRI ST 09:00 AM MINUTES CLINIC - IND Post-traumatic IE stress disorder, unspecified with Provider Comments: Posttraumatic stress disorder ([facility] [id number]) IHE Encounter Template Text not used by VA Assessments - Encounter Diagnoses This section includes the primary and secondary diagnoses documented for the Encounter. Date/Time Primary/Secondary Diagnosis Name Provider Source Diagnosis Apr 25, 2022 PRIMARY Post-traumatic MER,VERO [place] CN[facility] WS TRN 10:04 AM stress disorder, [facility] [place] unspecified Apr 25, 2022 SECONDARY Major depressive MER,[place]O [place] [facility] WSTR[place] 10:04 AM disorder, [facility] recurrent, moderate Plan of Treatment: Future Appointments (+ 6 months) and Future Tests (+/- 45 days) The Plan of Treatment section includes future care activities for the patient from all [place] treatmentfacilities. This section includes future appointments and future orders which are active, pending orscheduled.Future Appointments This section includes appointments that were scheduled to occur 6 months from the date of the Encounter, up to a maximum of 20 appointments. The data comes from all [place] treatment facilities. Appointment Date/Time Appointment Type Appointment Facili ty Name May 09, 2022 09:00 AM AMBULAT[facility] May 23, 2022 09:00 AM [facility] Jul 17, 2022 08:30 AM AMBULATORY - NONE [facility] [place] [facility] Aug 28, 2022 09:30 AM AMBULATORY - MEDICINE [facility] Social History: Smoking Status (Most [...] 23, 2021 02:30 PM [facility]-TOBACCO NEVER USED [facility] Encounter Notes: All associated encounter notes This section contains the clinical notes associated to the Encounter. Date/Time Encounter Note(s) Provider Source Apr 25, 2022 09:00 SOCIAL WORK NOTE: ANIVAL DEL ANGEL [facility] TRN LOCAL TITLE: SOCIAL WORK NOTE [facility] STANDARD TITLE: SOCIAL WORK NOTE DATE OF NOTE: APR 25, 2022@09:00 ENTRY DATE: APR 25, 2022@09:53:13 AUTHOR: ANIVAL DEL ANGEL EXP COSIGNER: URGENCY: STATUS: COMPLETED VISIT DURATION: 50 minutes DIAGNOSES: PTSD; [employer] STATEMENT OF GOALS/CONCERNS: Radisson reported on experiencing a lot of intrus cristy thoughts and memories, nightmares, and a lot of hyp erarousal. He shared being on a stroll in a park in the evening (past sunset) with his and kids and being on very high alert and expecting danger and this caused stress for his which he feels bad about. 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 He talked about frequently worrying about his kids' safety and r ecalled some of the deaths/killings of children in [facility]. 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 He shared he has been less bothered by self-hati ng thoughts. He denied any active plan or intent for s/i. He feels this has improved. He endorsed periods of dissociative symptoms. He shared the news of the of his 's grandfather, a [place] War vet he connected with. Radisson says he is still saving up vacation time to go to the 3 week [facility] residential program in [facility] that is spec ifically for combat vets. SESSION FOCUS: PTSD INTERVENTIONS: Psychotherapeutic Interventions: Assessment of sxs, s/i, well-being, and needs. Discussed symptoms.. Identified getting lost in the past and some dissociation which is making it harder for him to know why in trusive thoughts occur. Introduced/reviewed DBT skil ls TIP and mindfulness of emotion. Had him practice the latter when noticing distress/anxiety/adrena line in session discussing memories of combat. He demon strated good success this with this and a reduction in distress. Discussed resuming trauma processing. Let him kn ow about EMDR 2.0/EMD Bomb technique and how this might support him to stay present and tolerate the image. He was amenable to this. ASSESSMENT: BRIEF ASSESSMENT OF MENTAL STATUS: 1. Appearance (grooming, attire, apparent age) within normal limits: Yes 2. Thought content was organized and goal direc christo: Yes 3. Speech was coherent and unimpaired: Yes 4. Affect was appropriate and unremarkable: Full range, baseline anxiety 5. Demeanor was calm, with no signs of agitatio n or restlessness: Yes 6. Sleep was largely unimpaired and restful: No 7. No evidence of psychosis (hallucinations or delusions): Yes 8. Mood was normal: No Other Observations: Occasionally flashing back/ losing sense of present in session which he was able to manage with guidance in session today. RISK ASSESSMENT: See above. Currently presenting at low risk. He says he's been using tools learned and he feels that is helping. PLAN FOR FOLLOW-UP: Return in two weeks /ivelisse/ ANIVAL DEL ANGEL [facility] CLINICAL ELECTRICAL TECHNICIAN Signed: 04/25/2022 10:05
--- NOTE | 2022-04-25 18:59 | ED.GENADULT ---
HPI - General Adult General Chief complaint: Arrhythmia/Palpitations Stated complaint: work inj/chest pains/shortness of breath Time Seen by Provider: 04/25/22 18:39 Source: patient Mode of arrival: ambulatory Limitations: no limitations History of Present Illness HPI narrative: Patient comes to the emergency room complaining of xiphoid pain. Earlier this morning, patient was at the work connection office for follow-up visit. Patient states that on April 11 patient fell down the stairs. Couple of days later, patient started complaining of left-sided foot pain. Patient states that it has been present since then, but worse over the last week. Were connections sent the patient over to the emergency room for further evaluation. Related Data Previous Rx's Medication Instructions Recorded acetaminophen 500 mg capsule 500 mg PO Q6H PRN fever or pain 04/25/22 #14 caps Allergies Allergy/AdvReac Type Severity Reaction Status Date / Time No Known Allergies Allergy Verified 04/24/22 10:08 Review of Systems Review of Systems: Constitutional : No Weight loss, No Fever, No Chills, No Night Sweats, No Fatigue, No Malaise ENT/Mouth : No Hearing loss, No Ear Pain, No Nasal Congestion, No Sinus Pain, No Hoarseness, No sore throat, No Rhinorrhea, No Swallowing Difficulty Eyes: No Eye Pain, No Swelling, No Redness, No Foreign Body, No Discharge, No Vision Changes Cardiovascular : No Chest Pain, No SOB, No Dyspnea on Exertion, No Orthopnea, No Edema, No Palpitations Respiratory : No Cough, No Sputum, No Wheezing, No Smoke Exposure, No Dyspnea Gastrointestinal : No Nausea, No Vomiting, No Diarrhea, No Constipation, No abdominal Pain, No Hematochezia, No Melena Genitourinary : no irregular bleeding, No Dysuria, No Urinary Frequency, No Hematuria, No Urinary Incontinence, No Urgency, No Flank Pain, No Urinary Flow Changes, No Hesitancy Musculoskeletal : Complaining of xiphoid pain, complaining of a healing injury in his right lower extremity, No joint pain, No Myalgias, No Joint Swelling Skin : No Skin Lesions, No rash Neuro : No Weakness, No Numbness, No Paresthesias, No Loss of Consciousness, No Dizziness, No Headache Psych : No Anxiety/Panic, No Depression, No SI/HI/AH/VH, No Social Issues, Heme/Lymph: No Bruising, No Bleeding,No Lymphadenopathy Endocrine : No Polyuria, No Polydipsia, No Temperature Intolerance [facility] Past Medical History Medical History No pertinent past medical history Surgical History H/O kidney removal H/O kidney removal Family History Family History Mother No problems noted. Father No problems noted. 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 Oriented X3. No acute distress. Eyes: Pupils equal, round and reactive to light. ENT: Pharynx normal. Neck: Normal inspection. Neck supple. No lymph nodes noted. No crepitus CVS: Normal heart rate and rhythm. Pulses normal. Normal S1 and S2, pain to palpation in the xiphoid Respiratory: No respiratory distress. Breath sounds normal. No Wheezing. No rales Abdomen: Soft and nontender. No rigidity. No distention. Skin: Skin warm and dry. Normal skin color. Normal skin turgor. Extremities: No lower extremity edema. No Lacerations. No Rash, right extremity in a boot Neuro: Oriented X 3. No motor deficit. No sensory deficit. Moving all extremities. No slurred speech. CN 2 through 12 grossly intact Psych: calm, cooperative, normal affect Course Course Course Narrative: Patient's chest x-ray is pending. Troponin within normal limits, EKG shows ST segment elevation, likely pericarditis. I discussed the patient with Dr. Gutierrez, ESR and CRP are negative, at this time, pericarditis is not suspected. Patient discharged home Patient's chest pain is likely secondary to a contusion from the fall, musculoskeletal pain. Medical Decision Making Lab Data Result diagrams: 04/25/22 17:11 04/25/22 17:11 Labs: Lab Results 04/25/22 04/25/22 04/25/22 Range/Units 17:11 17:11 17:11 WBC 6.1 (4.8-10.8) X10*3/uL RBC 5.38 (4.60-5.80) X10*6/uL Hgb 16.2 (14.0-18.0) g/dl Hct 45.5 (42.0-52.0) % MCV 84.6 (80.0-98.0) fL MCH 30.1 (27.0-33.0) pg MCHC 35.6 (31.0-36.0) g/dl RDW 11.9 (11.0-16.0) % Plt Count 250 D (160-400) X10*3/uL MPV 9.8 (9.4-12.4) fL Immature Gran % (Auto) 0.2 (0.0-0.4) % Neut % (Auto) 62.0 (45-73) % Lymph % (Auto) 27.3 (20-40) % Steele % (Auto) 8.6 (2-11) % Eos % (Auto) 1.2 (0-4) % Baso % (Auto) 0.7 (0-2) % Lymph # (Auto) 1.7 (1.2-4.9) X10*3/uL Steele # (Auto) 0.5 (0.1-1.2) X10*3/uL Eos # (Auto) 0.1 (0.0-0.4) X10*3/uL Baso # (Auto) 0.0 (0.0-0.2) X10*3/uL Abs Immat Gran (auto) 0.01 (0.00-0.03) X10*3/uL Absolute Neuts (auto) 3.8 (2.0-8.3) x10*3/uL Absolute Nucleated RBC 0.000 (0.0-0.012) X10*3/uL Nucleated RBC % (auto) 0.0 (0.0-0.2) /100WBC ESR (0-15) MM/HR D-Dimer High Sensitivty < 150 NG/ML Sodium 140 (135-145) mmol/L Potassium 4.4 (3.3-5.1) mmol/L Chloride 102 (96-108) mmol/L Carbon Dioxide 26 (22-29) mmol/L Anion Gap 16 (12-20) BUN 19 H D (9-16) mg/dL Creatinine 1.21 (0.5-1.4) mg/dL Estim Creat Clear Calc 84.7 Estimated GFR > 60 Random Glucose 84 (60-115) mg/dL Calcium 9.8 (8.4-10.2) mg/dL Magnesium 1.9 (1.6-2.6) mg/dL Total Bilirubin 0.5 (0.0-1.0) mg/dL Direct Bilirubin 0.2 (0.0-0.5) mg/dL AST 19 (5-37) U/L ALT 17 (0-40) U/L Alkaline Phosphatase 71 (39-117) U/L Troponin I High Sens (<3.5-35.0) ng/L C-Reactive Protein 0.09 (< or = 0.50) mg/dL B-Natriuretic Peptide (<100) pg/mL Total Protein 7.5 (6.5-8.0) g/dL Albumin 4.7 (3.5-5.0) g/dL 04/25/22 04/25/22 Range/Units 17:11 17:11 WBC (4.8-10.8) X10*3/uL RBC (4.60-5.80) X10*6/uL Hgb (14.0-18.0) g/dl Hct (42.0-52.0) % MCV (80.0-98.0) fL MCH (27.0-33.0) pg MCHC (31.0-36.0) g/dl RDW (11.0-16.0) % Plt Count (160-400) X10*3/uL MPV (9.4-12.4) fL Immature Gran % (Auto) (0.0-0.4) % Neut % (Auto) (45-73) % Lymph % (Auto) (20-40) % Steele % (Auto) (2-11) % Eos % (Auto) (0-4) % Baso % (Auto) (0-2) % Lymph # (Auto) (1.2-4.9) X10*3/uL Steele # (Auto) (0.1-1.2) X10*3/uL Eos # (Auto) (0.0-0.4) X10*3/uL Baso # (Auto) (0.0-0.2) X10*3/uL Abs Immat Gran (auto) (0.00-0.03) X10*3/uL Absolute Neuts (auto) (2.0-8.3) x10*3/uL Absolute Nucleated RBC (0.0-0.012) X10*3/uL Nucleated RBC % (auto) (0.0-0.2) /100WBC ESR 2 (0-15) MM/HR D-Dimer High Sensitivty NG/ML Sodium (135-145) mmol/L Potassium (3.3-5.1) mmol/L Chloride (96-108) mmol/L Carbon Dioxide (22-29) mmol/L Anion Gap (12-20) BUN (9-16) mg/dL Creatinine (0.5-1.4) mg/dL Estim Creat Clear Calc Estimated GFR Random Glucose (60-115) mg/dL Calcium (8.4-10.2) mg/dL Magnesium (1.6-2.6) mg/dL Total Bilirubin (0.0-1.0) mg/dL Direct Bilirubin (0.0-0.5) mg/dL AST (5-37) U/L ALT (0-40) U/L Alkaline Phosphatase (39-117) U/L Troponin I High Sens < 3.5 (<3.5-35.0) ng/L C-Reactive Protein (< or = 0.50) mg/dL B-Natriuretic Peptide < 10 (<100) pg/mL Total Protein (6.5-8.0) g/dL Albumin (3.5-5.0) g/dL Discharge Plan Discharge Clinical Impression: Atypical chest pain Patient Disposition: Home, Self-Care Instructions: Chest Pain (ED) Additional Instructions: Please follow-up with your primary care physician tomorrow. If you have any worsening or new symptoms, please return to the emergency room or call 911 Prescriptions: New acetaminophen 500 mg capsule 500 mg PO Q6H PRN (Reason: fever or pain) Qty: 14 0RF
[2022-04-25 19:44] VITALS: BP 124/67; PULSE 64; RESP 16; TEMP 36.7; O2SAT 98
[2022-04-25 19:59] LABS: C Reactive Protein 0.09 mg/dL (< or = 0.50)
--- NOTE | 2022-04-25 20:56 | PC.NURSE ---
LS CTA> unlabored resp. and inspiration w/o grimace. describes palpitations. reg radial pulse, bounding. skin pwd. awaits last lab results.
[2022-04-25 22:00] VITALS: BP 138/71; PULSE 67; RESP 16; TEMP 36.6; O2SAT 99
[2022-04-25 22:22] LABS: Erythrocyte Sedimentation Rate 2 MM/HR (0-15)
== END 2022-04-25 23:40 | disposition home or self-care (01) ==
PROVIDERS: Physician Assistant; Emergency Provider Emergency Medicine; PCP Nurse Practitioner Family
DX: R00.2 Palpitations (principal); R07.89 Other chest pain; R06.02 Shortness of breath; Z79.899 Other long term (current) drug therapy
CPT/HCPCS: 36415; 71045; 80048; 80076; 83735; 83880; 84484; 85025; 85379; 85652; 86140; 93005; 99283; 99284

== ENCOUNTER → 2022-05-05 15:30 | Outpatient (BNVA) | payer OTHER, SELFPAY | PROVIDERS: PCP Nurse Practitioner Family; Visit Provider Internal Medicine | DX: S86.012D Strain of left Achilles tendon, subsequent encounter (principal); W10.9XXD Fall (on) (from) unspecified stairs and steps, subsequent encounter | CPT/HCPCS: 99213 ==

== ENCOUNTER → 2022-06-05 09:34 | Outpatient (BNVA) | payer OTHER, SELFPAY | PROVIDERS: PCP Nurse Practitioner Family; Visit Provider Physician Assistant | DX: M76.62 Achilles tendinitis, left leg (principal); S86.012A Strain of left Achilles tendon, initial encounter; W10.8XXA Fall (on) (from) other stairs and steps, initial encounter; Y93.02 Activity, running; Y92.89 Other specified places as the place of occurrence of the external cause; Y99.0 Civilian activity done for income or pay; M76.60 Achilles tendinitis, unspecified leg | CPT/HCPCS: 99212 ==

== ENCOUNTER → 2022-07-31 09:41 | Outpatient (BNVA) | payer OTHER, SELFPAY | PROVIDERS: Visit Provider Physician Assistant | DX: M76.60 Achilles tendinitis, unspecified leg (principal); S86.012A Strain of left Achilles tendon, initial encounter | CPT/HCPCS: 99212 ==

== ENCOUNTER 2022-08-20 17:00 | Outpatient (RCR) | payer OTHER, SELFPAY ==
--- NOTE | 2022-06-24 12:26 | MHC.PT.EP ---
[facility] [place] Office [place] Office [place] Office [address] [phone] F: [phone] F: [phone] F: [phone] F: [phone] Physical Therapy Plan of Care Date of Evaluation: Date of Surgery: Diagnosis: strain of achilles tendon Assessment: 32 y/o male referred to PT with strain of Achilles tendon. 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 He went to the hospital following the incident d/t concussion, LBP, knee pain and Achilles pain. He was placed in a walking boot for 6 weeks. He has started light duty for 2 months. He notes pain L Achilles that worsens with walking > 1 mile. He has not returned to running or exercise yet. He has not done a lot of stairs yet. S/s consistent with diagnosis secondary to decreased L ankle A/PROM, decreased gastroc length, increased tissue density/edema at Achilles insertion, decreased ankle strength, and early heel rise during gait. He would benefit from PT 2x/week for 6 weeks to address impairments, implement HEP, and optimize functional mobility so he can RTW as launch commander [employer] Frequency and Duration: The patient will be seen 2x/week for 6 weeks Short Term Goals: 3 weeks Compliant with HEP Improve gastroc length to 10* on L Residential Goals: 6 weeks I with HEP and self management of sx Improve L ankle strength to 5/5 to faciliate running Pt will be able to ambulate 60 minutes with pain < 2/10 Pt will be able to run > 10 minutes with normal mechanics and pain < 3/10 to faciliate work duties Treatment Plan: Modalities to reduce pain, spasms and effusion. Manual therapy to restore motion and function. Therapeutic exercise to improve strength and flexibility. Neuromuscular re-education for posture and balance. Therapeutic activities to return to functional activities of daily living. Electronically signed by: Gemini Jay PT Please sign and return to therapist. Thank you for your referral.
--- NOTE | 2022-08-28 13:34 | MHC.PT.DC ---
[facility] [place] Office [place] Office [place] Office [address] [phone] F: [phone] F: [phone] F: [phone] F: [phone] Physical Therapy Discharge Report Diagnosis: strain of achilles tendon Date of Surgery: Date of Evaluation: 06/24/22 Date of Discharge: 08/28/22 Treatments to Date: 12 Cancellations to Date: 0 No Shows to Date: Discharge Status: Achieved Goals Improved Function Independent with HEP Discharge Summary: Reports feeling better and RTW. His LEFS improved from 71/80 to 79/80. He demonstrates improved functional mobility and is I with HEP therefore appropriate for d/c. Electronically signed by: Gemini Jay PT Please sign and return to therapist. Thank you for your referral.
== END 2022-08-28 13:36 | disposition home or self-care (01) ==
LOC: HO.PT 17:00
PROVIDERS: Visit Provider Physician Assistant
DX: S86.012A Strain of left Achilles tendon, initial encounter (principal)
CPT/HCPCS: 97035; 97110; 97112; 97140; 97161; 97530

== ENCOUNTER 2022-09-23 18:11 | Outpatient (REF) | payer OTHER, SELFPAY ==
--- NOTE | ~2022-09-23 | MR_ITS ---
EXAMINATION: MRI LEFT SHOULDER WITHOUT CONTRAST CLINICAL INFORMATION: Left shoulder pain COMPARISON: None. TECHNIQUE: MRI of the shoulder without contrast is performed on a 1.5 Judy high-field scanner. FINDINGS: ROTATOR CUFF: Minimal interstitial insertional partial tear involving the junctional fibers of the supraspinatus/infraspinatus tendon on coronal image 13. Reactive marrow edema of the underlying greater tuberosity and superficial edema. Mild subscapularis insertional tendinopathy. The rotator cuff appears otherwise intact. Mild nonspecific edema/atrophy of the teres minor muscle. BICEPS: Normal. CORACOACROMIAL ARCH: The undersurface of the acromion is curved with no subacromial spur. The acromioclavicular joint is normal. LABRUM/CAPSULE: Minimal irregularity of the posterior inferior labrum at the 8:00 position. GLENOHUMERAL JOINT/MARROW: Small osteophyte of the posterior inferior glenoid rim. ADDITIONAL FINDINGS: None. MR/MR shoulder LT wo con IMPRESSION: 1. Minimal interstitial insertional partial tear of the junctional fibers of the supraspinatus/infraspinatus tendon with reactive marrow edema of the underlying greater tuberosity. 2. Mild subscapularis insertional tendinopathy. 3. Mild nonspecific edema/atrophy of the teres minor muscle. 4. Minimal irregularity of the posterior inferior labrum at the 8:00 position with adjacent osteophyte.
== END 2022-09-23 18:12 | disposition home or self-care (01) ==
LOC: HO.MRI 18:11
PROVIDERS: PCP Nurse Practitioner Family; Visit Provider Internal Medicine Endocrinology, Diabetes & Metabolism
DX: M25.512 Pain in left shoulder (principal)
CPT/HCPCS: 73221

== ENCOUNTER 2023-04-06 02:38 | Emergency (ER) | payer OTHER, SELFPAY ==
--- NOTE | ~2023-04-06 | XR_ITS ---
EXAMINATION: XR KNEE, RIGHT CLINICAL INFORMATION: Pain COMPARISON: None available. TECHNIQUE: 2 views of the right knee. FINDINGS: No fracture or joint effusion. Alignment is anatomic. Joint spaces are maintained. No abnormal soft tissue calcification. XR/XR knee RT 2V IMPRESSION: No significant abnormality identified.
[2023-04-06 02:49] VITALS: BP 122/71; PULSE 82; RESP 17; TEMP 36.5; O2SAT 98; BMI 27.4
--- NOTE | 2023-04-06 04:47 | PC.NURSE ---
pt resting, pain to right knee 7/10, ice pack applied. xray completed. waiting for provider
--- NOTE | 2023-04-06 04:52 | ED_ITS ---
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 The patient states that he was atte mpting to gain access through a door by kicking at states that he hyperextended his knee and developed immediate pain in his knee. The injury occurred approximately 45 minutes prior to coming to emergency department. The patient states he was able to walk however the pain is gotten worse he is having difficulty bearing weight. Patient denies any other injury. He did not take any medications prior to coming to the emergency department. Related Data Previous Rx's Medication Instructions Recorded acetaminophen 500 mg capsule 500 mg PO Q6H PRN fever or pain 04/25/22 #14 caps morphine 15 mg immediate release 15 mg PO Q4-6H PRN pain #10 tabs 04/06/23 tablet Allergies Allergy/AdvReac Type Severity Reaction Status Date / Time No Known Allergies Allergy Verified 04/06/23 02:49 Review of Systems Review of Systems: Yes all other systems are reviewed and are negative PMFSH [facility]: Past medical history: Partial tear of left Achilles tendon, soft tissue injury left knee, left knee sprain. 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 Medical History No pertinent past medical history Surgical History H/O kidney removal H/O kidney removal Family History Family History Mother No problems noted. Father No problems noted. 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 Patient is able to flex and extend his knee with only minimal pain, patient joint appears to be stable and neurovascular intact. 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 Patient's examination did not reveal any significant joint effusion, patient does have pain with weight-bearing. X-rays were obtained and there was no acute fracture seen. Patient's findings are consistent with a knee sprain. Patient was placed in a knee immobilizer and he was given crutches. He was given ibuprofen 400 mg and Tylenol 975 mg orally. The patient will be discharged home. He is to follow-up with [facility] in 1-2 days, he cannot return to work until he is medically cleared by [facility]. I told the patient that he may be out of work for at least 1-2 weeks depending on his pain and his ability to walk and run. Patient was advised to take ibuprofen 400 mg every 6 hours as needed for pain, Tylenol 1000 mg every 6 hours as needed for pain and for pain not relieved by these medications he was prescribed morphine 15 mg every 4-6 hours. Differential Diagnosis Differential Diagnoses: The differential diagnosis associated with the presentation includes Differential diagnosis includes but is not limited to acute fracture, acute knee sprain, acute knee strain Independent Interpretation I performed an independent interpretation of an: Plain X-Ray Interpretation: My independent interpreted of the patient's right knee x-rays are as follows: No acute fracture seen. Radiology Impression Discussion of test interpretation with radiology: I have reviewed the radiologist's reading. Radiologist Impression: XR knee RT 2V IMPRESSION: No significant abnormality identified. Dictated By: Jone Harding Discharge Plan Discharge Clinical Impression: Right knee sprain Patient Disposition: Home, Self-Care Instructions: Knee Sprain (ED) Additional Instructions: Your x-rays revealed no broken bones. Your examination is consistent with a right knee sprain Wear the knee immobilizer an use the crutches until you are medically cleared from the occupational health clinic, [facility] Take ibuprofen 200 mg pills, 2 pills every 6 hours as needed for pain. Take Tylenol (acetaminophen) 2 pills every 4-6 hours as needed for pain. For pain not relieved by ibuprofen or Tylenol take morphine 15 mg pills, 1 pill every 4 hours as needed for pain. This medication will make you sleepy, do not drive or work while taking this medication. Morphine is a narcotic medication and can be addicting. If you are concerned about addiction you can ask the pharmacist for less pills or do not get this prescription filled. Call [facility] today for follow-up within 1-2 days. Please return to the emergency department if your symptoms get worse or if you develop any symptoms that are concerning to you. Prescriptions: New morphine 15 mg tablet 15 mg PO Q4-6H PRN (Reason: pain) Qty: 10 0RF Rx Instructions: The patient may ask for partial fill; Partial Fill upon patient request. 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
[2023-04-06] MEDS: Ibuprofen 400 MG TABLET PO (05:21)
[2023-04-06] MEDS: Acetaminophen 325 MG TABLET 975 MG PO (05:21)
--- NOTE | 2023-04-06 05:30 | PC.NURSE ---
Knee immobilizer applied to right knee and crutches provided. Pt states he has used crutches in the past.
== END 2023-04-06 05:34 | disposition home or self-care (01) ==
PROVIDERS: Emergency Provider Emergency Medicine Emergency Medical Services
DX: S83.91XA Sprain of unspecified site of right knee, initial encounter (principal); X58.XXXA Exposure to other specified factors, initial encounter; Y93.9 Activity, unspecified; Y92.9 Unspecified place or not applicable; Y99.9 Unspecified external cause status
CPT/HCPCS: 73560; 99283; 99284

== ENCOUNTER → 2023-04-07 09:49 | Outpatient (BNVA) | payer OTHER, SELFPAY | PROVIDERS: Visit Provider Internal Medicine | DX: S76.111A Strain of right quadriceps muscle, fascia and tendon, initial encounter (principal); X50.0XXA Overexertion from strenuous movement or load, initial encounter | CPT/HCPCS: 99203 ==

== ENCOUNTER → 2023-04-14 07:57 | Outpatient (BNVA) | payer OTHER, SELFPAY | PROVIDERS: Visit Provider Internal Medicine | DX: M23.91 Unspecified internal derangement of right knee (principal) | CPT/HCPCS: 99213 ==

== ENCOUNTER 2023-04-30 21:29 | Emergency (ER) | payer OTHER, SELFPAY ==
[2023-04-30 21:45] VITALS: PULSE 68; RESP 15; O2SAT 100; BMI 27.4
[2023-04-30 21:48] VITALS: BP 144/92; PULSE 93; RESP 18; O2SAT 98
--- NOTE | 2023-04-30 21:50 | PC.NURSE ---
pt spoke with this RN, states lately he has been having an increasingly difficult time at work focusing, he has had increased stress and his coworkers noticed this and pulled him into the office to talk about it. Pt admits he needs to talk with someone. He has seen a therapist in the past. Patient denies any thoughts of SI and HI. Pt reports he has had SI thoughts in the past but not recently and not today. This RN does not feel the need to change patient over as of right now. Pt is exhibiting safe behaviors and states he will let this RN know if he feels unsafe Pt reports he has not been sleeping recently. His MD has been changing his medications. He sees a psychiatrist 2x a week. Pt does have PTSD from being in the
--- NOTE | 2023-04-30 22:02 | ED_ITS ---
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 Patient seen by psychiatrist 3 weeks ago on gabapentin lorazepam has a therapist whom he saw 2 weeks ago. No substance abuse no alcohol use no increased stress at home patient take Ativan at home with poor response unable to sleep lately for last few days Related Data Previous Rx's Medication Instructions Recorded acetaminophen 500 mg capsule 500 mg PO Q6H PRN fever or pain 04/25/22 #14 caps morphine 15 mg immediate release 15 mg PO Q4-6H PRN pain #10 tabs 04/06/23 tablet Allergies Allergy/AdvReac Type Severity Reaction Status Date / Time No Known Allergies Allergy Verified 04/06/23 02:49 Review of Systems 2 Review of Systems: Yes all other systems are reviewed and are negative [facility] Past Medical History Medical History No pertinent past medical history Surgical History H/O kidney removal H/O kidney removal Family History Family History Mother No problems noted. Father No problems noted. 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 Oriented X3. No acute distress. Eyes: PERRLA, No Nystagmus ENT: Pharynx normal. Oral Mucosa moist Neck: Normal inspection. Neck supple. CVS: Normal heart rate and rhythm. Pulses normal. Respiratory: No respiratory distress. Equal air entry bilateral, no wheezing/rales/rhonchi Abdomen: Soft and nontender. Bowel sounds are present, no mass palpable, no CVA tenderness Skin: Skin warm and dry. Normal skin color. Normal skin turgor. Extremities: No lower extremity edema. No calf tenderness psych: Mood is stable no significant depression or anxiety no hallucination or delusion no current SI/HI Neuro: Oriented X 3. No motor deficit. 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 04/30/23 22:25 04/30/23 22:25 Labs: Lab Results 04/30/23 05/01/23 Range/Units 22:25 01:18 WBC 7.0 (4.8-10.8) X10*3/uL RBC 5.21 (4.60-5.80) X10*6/uL Hgb 16.1 (14.0-18.0) g/dl Hct 44.9 (42.0-52.0) % MCV 86.2 (80.0-98.0) fL MCH 30.9 (27.0-33.0) pg MCHC 35.9 (31.0-36.0) g/dl RDW 11.7 (11.0-16.0) % Plt Count 212 (160-400) X10*3/uL MPV 10.0 (9.4-12.4) fL Immature Gran % (Auto) 0.3 (0.0-0.4) % Neut % (Auto) 70.6 (45-73) % Lymph % (Auto) 17.7 L (20-40) % [place] % (Auto) 9.8 (2-11) % Eos % (Auto) 1.2 (0-4) % Baso % (Auto) 0.4 (0-2) % Lymph # (Auto) 1.2 (1.2-4.9) X10*3/uL [place] # (Auto) 0.7 (0.1-1.2) X10*3/uL Eos # (Auto) 0.1 (0.0-0.4) X10*3/uL Baso # (Auto) 0.0 (0.0-0.2) X10*3/uL Abs Immat Gran (auto) 0.02 (0.00-0.03) X10*3/uL Absolute Neuts (auto) 4.9 (2.0-8.3) x10*3/uL Absolute Nucleated RBC 0.000 (0.0-0.012) X10*3/uL Nucleated RBC % (auto) 0.0 (0.0-0.2) /100WBC Sodium 140 (135-145) mmol/L Potassium 3.9 (3.3-5.1) mmol/L Chloride 103 (96-108) mmol/L Carbon Dioxide 25 (22-29) mmol/L Anion Gap 16 (12-20) BUN 15 (9-16) mg/dL Creatinine 1.29 (0.5-1.4) mg/dL Estim Creat Clear Calc 78.7 Estimated GFR > 60 Random Glucose 88 (60-115) mg/dL Calcium 9.5 (8.4-10.2) mg/dL Total Bilirubin 0.7 (0.0-1.0) mg/dL AST 18 (5-37) U/L ALT 14 (0-40) U/L Alkaline Phosphatase 70 (39-117) U/L Total Protein 7.6 (6.5-8.0) g/dL Albumin 4.5 (3.5-5.0) g/dL Urine Color Yellow Urine Appearance Clear Urine pH 5.5 (5.0-9.0) Ur Specific [place] 1.020 (1.005-1.025) Urine Protein Negative (Neg-Trace) mg/dL Urine Glucose (UA) Negative (Negative) mg/dL Urine Ketones Negative (Negative) mg/dL Urine Blood Negative (Negative) Urine Nitrite Negative (Negative) Ur Leukocyte Esterase Negative (Negative) Urine RBC 0-2 (0-2) /HPF Urine WBC 0-5 (0-5) /HPF Ur Squamous Epith Cells 0-2 (0-2) /HPF Urine Bacteria None Seen (None Seen) Hyaline Casts 0-2 (0-2) /LPF Urine Opiates Screen Not Detected (Not Detect) Urine Fentanyl Screen Not Detected (Not Detect) Ur Barbiturates Screen Not Detected (Not Detect) Ur Phencyclidine Scrn Not Detected (Not Detect) Ur Amphetamines Screen Not Detected (Not Detect) U Benzodiazepines Scrn Not Detected (Not Detect) Urine Cocaine Screen Not Detected (Not Detect) U Marijuana (THC) Screen Not Detected (Not Detect) Ethyl Alcohol < 10 mg/dL COVID-19 (LIZET) Negative (Negative) COVID-19 Clin Com See Note Discharge Plan Discharge Clinical Impression: Chronic post-traumatic stress disorder (PTSD), Acute anxiety Patient Disposition: Still a Patient Prescriptions: No Action acetaminophen 500 mg capsule 500 mg PO Q6H PRN (Reason: fever or pain) Qty: 14 0RF morphine 15 mg tablet 15 mg PO Q4-6H PRN (Reason: pain) Qty: 10 0RF Rx Instructions: The patient may ask for partial fill; Partial Fill upon patient request. Interventions: [place]-Suicide Risk Severity Scale Last Done: 04/30/23 21:56
--- NOTE | 2023-04-30 22:05 | PC.NURSE ---
spoke with pt at bedside, with lieutecarot, pt tearful with this nurse. Advised plan is for basic blood work, as well as a urinalysis. He will also be seen by an ED provider. Pt verbalizes understanding. Pt denies HI/SI at this time.
[2023-04-30 22:37] LABS: Basophils Percent Auto 0.4 % (0-2); Eosinophils Absolute Auto 0.1 X10*3/uL (0.0-0.4); Eosinophils Percent Auto 1.2 % (0-4); Hematocrit 44.9 % (42.0-52.0); Hemoglobin 16.1 g/dl (14.0-18.0); Imm Gran Abs Auto 0.02 X10*3/uL (0.00-0.03); Imm Gran Pct Auto 0.3 % (0.0-0.4); Lymphocytes Absolute Auto 1.2 X10*3/uL (1.2-4.9); Lymphocytes Percent Auto 17.7 % (20-40); MANUAL DIFF FLAG NO; Mean Corpuscular HGB Conc 35.9 g/dl (31.0-36.0); Mean Corpuscular Hemoglobin 30.9 pg (27.0-33.0); Mean Corpuscular Volume 86.2 fL (80.0-98.0); Monocytes Absolute Auto 0.7 X10*3/uL (0.1-1.2); Monocytes Percent Auto 9.8 % (2-11); Neutrophils Absolute Auto 4.9 x10*3/uL (2.0-8.3); Neutrophils Percent Auto 70.6 % (45-73); Platelet Count 212 X10*3/uL (160-400); Red Blood Count 5.21 X10*6/uL (4.60-5.80); Red Cell Distribution Width 11.7 % (11.0-16.0)
[2023-04-30 22:52] LABS: Alanine Aminotransferase 14 U/L (0-40); Albumin Level 4.5 g/dL (3.5-5.0); Alkaline Phosphatase 70 U/L (39-117); Anion Gap 16 (12-20); Aspartate Amino Transferase 18 U/L (5-37); Bilirubin Total 0.7 mg/dL (0.0-1.0); Blood Urea Nitrogen 15 mg/dL (9-16); Calcium 9.5 mg/dL (8.4-10.2); Carbon Dioxide 25 mmol/L (22-29); Chloride 103 mmol/L (96-108); Creatinine Clr Calc Pharmacy 78.7; Estimated Glomerular Filt Rate > 60; Ethanol < 10 mg/dL; Glucose Random 88 mg/dL (60-115); Potassium 3.9 mmol/L (3.3-5.1); Sodium 140 mmol/L (135-145); Total Protein 7.6 g/dL (6.5-8.0)
[2023-04-30 23:22] LABS: COVID-19 Test Negative (Negative); IDNOW Serial# 6674DD1D
[2023-05-01 00:25] VITALS: BP 138/90; PULSE 81; RESP 16; TEMP 36.7; O2SAT 99
--- NOTE | 2023-05-01 00:52 | PC.NURSE ---
pt continues to rest, calm and cooperative, tearful at times. Pt updated on plan of care to see CARE team in am. Pt verbalizes understanding. Pt continues to deny SI/HI. Belongings list completed by this RN
[2023-05-01 01:31] LABS: Appearance Urine Clear; Color Urine Yellow; Glucose Urine UA Negative (Negative); Leukocyte Esterase Urine Negative (Negative); Nitrite Urine Negative (Negative); PH 5.5 (5.0-9.0); Urine Blood Negative (Negative); Urine Ketones Negative (Negative); Urine Protein Negative (Neg-Trace)
[2023-05-01] MEDS: OLANZapine ODT 10 MG TAB.RAPDIS TRANSLINGU (01:31)
[2023-05-01 01:33] LABS: Bacteria Urine None Seen (None Seen); Hyaline Casts Urine 0-2 /LPF (0-2); RBC Urine 0-2 /HPF (0-2); Squamous Epithelial Cell Urine 0-2 /HPF (0-2); WBC Urine 0-5 /HPF (0-5)
[2023-05-01 01:35] VITALS: BP 143/87; PULSE 94; RESP 16; TEMP 36.8; O2SAT 98
[2023-05-01 01:41] LABS: Amphetamine Screen Urine Not Detected (Not Detect); Barbiturates, Urine Not Detected (Not Detect); Benzodiazepines Screen Urine Not Detected (Not Detect); Cannabinoid Screen Urine Not Detected (Not Detect); Cocaine Screen Urine Not Detected (Not Detect); Fentanyl, urine Not Detected (Not Detect); Opiate Screen Urine Not Detected (Not Detect); Phencyclidine Screen Urine Not Detected (Not Detect)
--- NOTE | 2023-05-01 01:54 | PC.NURSE ---
pt moved to ED 3, report given to GHANSHYAM Ascencio. Pt medicated per SEP. Is now resting on stretcher, respirations even and unlabored, skin pwd, no apparent distress. Calm and cooperative, continues to deny SI. Pt belongings complete, medications secured at charge desk
[2023-05-01 05:32] VITALS: BP 114/62; PULSE 80; RESP 17; TEMP 36.6; O2SAT 96
--- NOTE | 2023-05-01 05:59 | PC.NURSE ---
pt continues to rest in bed; no apparent distress; resps are even and unlabored. will continue to monitor.
[2023-05-01 08:39] VITALS: BP 137/78; PULSE 78; RESP 18; TEMP 36.6; O2SAT 98
--- NOTE | 2023-05-01 11:08 | PC.NURSE ---
pt still asleep, nad, skin wpd resp even and unlabored
== END 2023-05-01 11:22 | disposition home or self-care (01) ==
PROVIDERS: Emergency Provider Internal Medicine; PCP Nurse Practitioner Family
DX: F41.9 Anxiety disorder, unspecified (principal); F43.12 Post-traumatic stress disorder, chronic; Z11.52 Encounter for screening for COVID-19; Z87.820 Personal history of traumatic brain injury; Z79.899 Other long term (current) drug therapy
CPT/HCPCS: 36415; 80053; 80307; 81001; 85025; 87635; 99283; 99285; S9485

== ENCOUNTER 2024-04-03 12:49 | Emergency (ER) | payer OTHER, SELFPAY ==
--- NOTE | 2024-04-03 13:09 | ED.GENADULT ---
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 He reports that he presented to a call where a dog was then at the home, the dog appeared scared, reportedly had likely been alone for a couple of days. He attempted to provide the dog with some water placed a ball down and upon standing the dog lunged in bit him on the right arm over the biceps. Believes this was superficial did not latch on and pull or tugging any way. No associated pain to the shoulder or elbow and has full range of motion. No active bleeding. He is unaware of the date of his last tetanus vaccination. Animal control has the dog at this time, likely to be quarantined observation, vaccination status for rabies is unknown. Related Data Previous Rx's ?Medication ?Instructions ?Recorded acetaminophen 500 mg capsule 500 mg PO Q6H PRN fever or pain 04/25/22 #14 caps morphine 15 mg immediate release 15 mg PO Q4-6H PRN pain #10 tabs 04/06/23 tablet amoxicillin 875 mg-potassium 1 tab PO BID #14 tabs 04/03/24 clavulanate 125 mg tablet Allergies Allergy/AdvReac Type Severity Reaction Status Date / Time No Known Allergies Allergy Verified 04/03/24 13:19 Review of Systems Review of Systems: Yes all other systems are reviewed and are negative PMFSH Past Medical History Attestation statement: The following information was validated with the patient. Source: old records reviewed Medical History No pertinent past medical history Surgical History H/O kidney removal H/O kidney removal Family History Family History Mother No problems noted. Father No problems noted. 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 No acute distress.?Normal affect. Eyes: Pupils equal, round and reactive to light.? ENT: Pharynx normal.?? Neck: Normal inspection.? Neck supple.?? CVS: Heart sounds normal. Normal heart rate and rhythm.? Pulses normal.?? Respiratory: No respiratory distress.? Lung sounds clear to auscultation bilaterally?? Abdomen: Soft and non-tender. Normoactive bowel sounds. No pulsatile mass.?? Skin: Skin warm and dry.? Normal skin color.? Normal skin turgor.?? Extremities: No extremity edema right biceps 1 cm dog bite, no active bleeding. No point tenderness at the biceps tendon insertion site. Full range of motion to the right shoulder and elbow. 2+ radial pulse. Neuro: Moves all extremities spontaneously. Sensation intact bilaterally. Ambulates with normal steady gait. Medications Administered Discontinued Medications Generic Name Dose Route Start Last Admin Trade Name Freq PRN Reason Stop Dose Admin Diphtheria/Tetanus/Acell Pertussis 0.5 ml 04/03/24 13:19 04/03/24 13:23 Diphth,Pertus(Acell),Tet Adult 0.5 Ml Syringe IM 04/03/24 13:20 0.5 ml .ONCE ONE Administration Medical Decision Making Medical Decision Making [facility] Narrative: Patient is a 34 old male who presents emergency department for evaluation of a dog bite to the right upper extremity, vaccination status of dog is unknown. Overall he appears well, nontoxic, afebrile. No active bleeding. Tetanus vaccination was updated today. Provided with course of antibiotics. Patient to follow-up with [facility] tomorrow. Reviewed strict return precautions. All questions answered. Stable for discharge. Differential Diagnosis Differential Diagnoses: The differential diagnosis associated with the presentation includes Dog bite, possible rabies exposure. Dog is in quarantine, discussed treatment recommendations for possible rabies IG/vaccination which using shared decision-making he has elected to forego at this time. No acute bony tenderness, full range of motion to the shoulder and elbow unlikely to have acute fracture. No point tenderness over the biceps tendon no palpable deformity to suggest rupture. External Record Review External record reviewed: Outpatient record Tests considered The following testing was considered but not selected: See narrative above, XR deferred Prescription Management I considered prescription management with: Pain Medication (Acetaminophen/ibuprofen) and Antibiotic Discharge Plan Discharge Clinical Impression: Dog bite of right upper extremity Qualifiers: Encounter type: initial encounter Qualified Code(s): S41.151A - Open bite of right upper arm, initial encounter Patient Disposition: Home, Self-Care Instructions: Animal Bite (ED) Additional Instructions: Monitor the site for signs of infection including increasing redness, swelling, pus-like discharge, pain, fevers, chills. Complete the entire course of antibiotics as prescribed. Do not skip any doses. Follow-up with [facility] tomorrow. Prescriptions: New amoxicillin-pot clavulanate 875-125 mg tablet 1 tab PO BID Qty: 14 0RF No Action acetaminophen 500 mg capsule 500 mg PO Q6H PRN (Reason: fever or pain) Qty: 14 0RF morphine 15 mg tablet 15 mg PO Q4-6H PRN (Reason: pain) Qty: 10 0RF Rx Instructions: The patient may ask for partial fill; Partial Fill upon patient request. Referrals: [facility] [Provider Group] Discharge Date/Time: 04/03/24 13:35 Print Language: Kazakh
[2024-04-03 13:13] VITALS: BP 134/81; PULSE 74; RESP 16; TEMP 36.4; O2SAT 97; BMI 27.3
[2024-04-03] MEDS: Diphth,Pertus(ACell),Tet Adult 0.5 ML SYRINGE IM (13:23)
== END 2024-04-03 13:35 | disposition home or self-care (01) ==
PROVIDERS: Emergency Provider Emergency Medicine; PCP Nurse Practitioner Family
DX: S41.151A Open bite of right upper arm, initial encounter (principal); M79.601 Pain in right arm; W54.0XXA Bitten by dog, initial encounter; Y93.89 Activity, other specified; Y92.89 Other specified places as the place of occurrence of the external cause; Y99.0 Civilian activity done for income or pay; Z23 Encounter for immunization
CPT/HCPCS: 90471; 90715; 99281; 99284

== ENCOUNTER → 2024-04-04 07:52 | Outpatient (BNVA) | payer OTHER, SELFPAY | PROVIDERS: PCP Nurse Practitioner Family; Visit Provider Physician Assistant Medical | DX: S50.871A Other superficial bite of right forearm, initial encounter (principal); W54.0XXA Bitten by dog, initial encounter; Z23 Encounter for immunization | CPT/HCPCS: 99204 ==

== ENCOUNTER → 2024-04-08 09:04 | Outpatient (BNVA) | payer OTHER, SELFPAY | PROVIDERS: PCP Nurse Practitioner Family; Visit Provider Physician Assistant | DX: S50.871A Other superficial bite of right forearm, initial encounter (principal); W54.0XXA Bitten by dog, initial encounter; R11.0 Nausea | CPT/HCPCS: 99213 ==

== ENCOUNTER → 2024-04-11 08:49 | Outpatient (BNVA) | payer OTHER, SELFPAY | PROVIDERS: PCP Nurse Practitioner Family; Visit Provider Physician Assistant Medical | DX: S50.871A Other superficial bite of right forearm, initial encounter (principal); W54.0XXA Bitten by dog, initial encounter | CPT/HCPCS: 99213 ==

== ENCOUNTER 2024-06-20 06:17 | Emergency (ER) | payer OTHER, SELFPAY ==
--- NOTE | ~2024-06-20 | XR_ITS ---
EXAMINATION: XR KNEE, RIGHT CLINICAL INFORMATION: pain s/p injury COMPARISON: Right knee x-ray on 04/06/2023 TECHNIQUE: Four views of the right knee. FINDINGS: BONES: Bony structures are intact. There is no focal bone destruction or periosteal reaction seen. JOINTS: Alignment of joints is normal. SOFT TISSUE: Soft tissue is normal. No radiopaque foreign body or abnormal air collection is seen. XR/XR knee RT 4V IMPRESSION: 1. Unchanged Normal x-rays of right knee. No fracture or dislocation or signs of osteomyelitis are found. Electronically signed by: Nenita Laurent MD 06/20/2024 08:00 AM [facility]
[2024-06-20 06:21] VITALS: BP 141/77; PULSE 77; RESP 18; TEMP 36.6; O2SAT 97; BMI 27.3
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
[2024-06-20 09:51] VITALS: BP 141/77; PULSE 77; RESP 18; TEMP 36.6; O2SAT 97
== END 2024-06-20 09:51 | disposition home or self-care (01) ==
PROVIDERS: Emergency Provider Emergency Medicine; PCP Nurse Practitioner Family
DX: S83.91XA Sprain of unspecified site of right knee, initial encounter (principal); Y35.891A Legal intervention involving other specified means, law enforcement official injured, initial encounter; Y93.89 Activity, other specified; Y92.410 Unspecified street and highway as the place of occurrence of the external cause; Y99.9 Unspecified external cause status
CPT/HCPCS: 73564; 99283; 99284

== ENCOUNTER → 2024-06-21 10:26 | Outpatient (BNVA) | payer OTHER, SELFPAY | PROVIDERS: PCP Nurse Practitioner Family; Visit Provider Physician Assistant Medical | DX: S80.01XA Contusion of right knee, initial encounter (principal); W18.30XA Fall on same level, unspecified, initial encounter | CPT/HCPCS: 99203 ==

== ENCOUNTER → 2024-06-22 08:49 | Outpatient (BNVA) | payer OTHER, SELFPAY | PROVIDERS: PCP Nurse Practitioner Family; Visit Provider Physician Assistant Medical | DX: S80.01XA Contusion of right knee, initial encounter (principal); W18.30XA Fall on same level, unspecified, initial encounter | CPT/HCPCS: 73560 ==

== ENCOUNTER → 2024-06-28 10:22 | Outpatient (BNVA) | payer OTHER, SELFPAY | PROVIDERS: PCP Nurse Practitioner Family; Visit Provider Physician Assistant | DX: S83.91XA Sprain of unspecified site of right knee, initial encounter (principal); S80.01XA Contusion of right knee, initial encounter; W18.30XA Fall on same level, unspecified, initial encounter | CPT/HCPCS: 99213 ==

== ENCOUNTER → 2024-07-06 10:15 | Outpatient (BNVA) | payer OTHER, SELFPAY | PROVIDERS: PCP Nurse Practitioner Family; Visit Provider Physician Assistant Medical | DX: S83.91XA Sprain of unspecified site of right knee, initial encounter (principal); W18.30XA Fall on same level, unspecified, initial encounter | CPT/HCPCS: 99213 ==

== ENCOUNTER 2025-02-26 05:05 | Emergency (ER) | payer OTHER, SELFPAY ==
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
[2025-02-26 05:06] VITALS: BP 133/76; PULSE 83; RESP 6; TEMP 37.1; O2SAT 98; BMI 27.3
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
[2025-02-26 09:03] VITALS: BP 127/69; PULSE 76; RESP 14; TEMP 37.1; O2SAT 96
== END 2025-02-26 09:03 | disposition home or self-care (01) ==
PROVIDERS: Emergency Provider Emergency Medicine
DX: S09.90XA Unspecified injury of head, initial encounter (principal); M79.10 Myalgia, unspecified site; M54.2 Cervicalgia; R51.9 Headache, unspecified; V47.5XXA Car driver injured in collision with fixed or stationary object in traffic accident, initial encounter; Y93.9 Activity, unspecified; Y92.410 Unspecified street and highway as the place of occurrence of the external cause; Y99.0 Civilian activity done for income or pay
CPT/HCPCS: 70450; 72125; 99284

== ENCOUNTER → 2025-02-26 05:33 | Outpatient (BNV) | payer OTHER, SELFPAY | PROVIDERS: Emergency Provider Emergency Medicine; Visit Provider Radiology Vascular & Interventional Radiology | DX: M25.78 Osteophyte, vertebrae (principal); R42 Dizziness and giddiness | CPT/HCPCS: 70450; 72125 ==

== ENCOUNTER → 2025-02-27 07:59 | Outpatient (BNVA) | payer OTHER, SELFPAY | PROVIDERS: Visit Provider Physician Assistant Medical | DX: S16.1XXA Strain of muscle, fascia and tendon at neck level, initial encounter (principal); S46.819A Strain of other muscles, fascia and tendons at shoulder and upper arm level, unspecified arm, initial encounter; V89.0XXA Person injured in unspecified motor-vehicle accident, nontraffic, initial encounter; Z02.79 Encounter for issue of other medical certificate | CPT/HCPCS: 99203 ==